=== PATIENT | female | born 1990 | race Caucasian/White ===

== ENCOUNTER 2016-05-14 17:42 | Emergency (ER) | payer BC, OTHER ==
[~2016-05-14] VITALS: Ht 170.2 cm; Wt 117.8 kg
[~2016-05-14 17:42] MED LIST: ALBU1NEB10 INH; AMIT150T PO; CHOL1CAP30 PO; CYAN1SUB12 PO; CYCL10TA6 PO; FLUT1AER5 INH; FRRS300 PO; LORA-741 PO; RIZA10TA18 PO
[2016-05-14 17:48] VITALS: TEMP 36.5; Ht 170.2 cm; Wt 117.8 kg
[2016-05-14] MEDS ORDERED: ALBU1AER9 INH (18:32)
[2016-05-14] MEDS ORDERED: DPPI150 IM (18:32)
[2016-05-14] MEDS ORDERED: OXYCODONE HCL IR 5 MG TAB (IMMEDIATE RELEASE) PO STA (19:10)
[2016-05-14] MEDS ORDERED: CETI10TA84 PO (19:35)
[2016-05-14 20:15] LABS: BASO % 0.5 %; BASO ABS # 0.03 K/uL (0-0.2); COMPLETE YES; EOS % 3.4 %; HEMATOCRIT 37.1 % (37-47); IG% 0.2 %; LYMPH % 35.2 %; LYMPH ABS # 1.97 K/uL (1.2-3.4); MEAN CELL VOLUME 96.9 fL (80-100); MEAN CORPUSCULAR HEMOGLOBIN 33.2 pg (25-34); MEAN CORPUSCULAR HGB CONC 34.2 g/dl (32-36); MEAN PLATELET VOLUME 10.2 fL (7.4-10.4); MONO % 9.3 %; NEUT % 51.4 %; PLATELET COUNT 229 K/uL (130-400); RED BLOOD COUNT 3.83 M/uL (4.2-5.4)
[2016-05-14 20:30] LABS: PARTIAL THROMBOPLASTIN RATIO 1.3; PROTHROMBIN TIME (PATIENT) 10.7 SECONDS (9.0-12.0)
[2016-05-14 20:36] LABS: ALT/SGPT 17 U/L (12-78); BLOOD UREA NITROGEN 7 mg/dl (7-18); BUN/CREATININE RATIO 12.4 (10-20); CALCIUM 8.8 mg/dl (8.5-10.1); CARBON DIOXIDE 17 mmol/L (21-32); CHLORIDE 107 mmol/L (98-107); CREATININE 0.54 mg/dl (0.60-1.20); GLUCOSE 72 mg/dl (70-99); POTASSIUM 3.4 mmol/L (3.5-5.1); SODIUM 140 mmol/L (136-145)
[2016-05-14 20:39] LABS: ALKALINE PHOSPHATASE 111 U/L (45-117); AST/SGOT 13 U/L (15-37)
--- NOTE | 2016-05-14 20:59 | DIAGNOSTIC IMAGING REPORT ---
CHEST 2 VIEWS ROUTINE HISTORY: Short of breath. COMPARISON: Chest 04/15/2015. FINDINGS: There are low lung volumes, unchanged. Prior cholecystectomy. The heart is normal in size. Left jugular Port-A-Cath terminates in the SVC. No focal lung consolidations to suggest pneumonia. No evidence for pulmonary edema. No pleural effusions. No pneumothorax. IMPRESSION: No acute process. Electronically signed by: Yusuf Mejia M.D. 05/14/2016 8:57 PM Dictated Date/Time: 05/14/2016 8:56 PM
--- NOTE | 2016-05-14 21:19 | DIAGNOSTIC IMAGING REPORT ---
LEFT UPPER EXTREMITY VENOUS DOPPLER HISTORY: Left arm pain. COMPARISON STUDY: None. FINDINGS: The left internal jugular vein is patent. There is normal flow within the left subclavian vein. There is normal flow and compressibility within the left basilic, brachial, radial, ulnar, and visualized cephalic veins. Note, the distal subclavian vein, proximal cephalic vein, axillary vein were obscured by the patient's indwelling port. IMPRESSION: No DVT within the visualized left upper extremity. The patient's indwelling port obscured the left axillary vein and distal subclavian vein. Electronically signed by: Yusuf Mejia M.D. 05/14/2016 9:17 PM Dictated Date/Time: 05/14/2016 9:16 PM
--- NOTE | 2016-05-14 21:37 | EMERGENCY ROOM VISIT NOTE ---
History First contact with patient: 18:50 Chief Complaint: ARM PAIN Stated Complaint: PAIN IN ARM, TROUBLE BREATHING, HX OF BLOOD CLOTS History of Present Illness The patient is a 25 year old female, history of MS, who presents to the Emergency Room with her mother with complaints of left upper extremity pain and shortness of breath. The mother reports that the patient has a history of asthma, and does not know if her symptoms are secondary to asthma or possible blood clots in the lung. The patient reports that she has had a prior history of pulmonary emboli and extensive right upper extremity DVT. The patient denies any recent injury to her left upper extremity. She reports that the pain is focused mostly about the elbow. She denies any recent trauma to the left upper extremity. The patient denies any significant wheezing, fevers, chills, cough, sore throat, runny nose or sinus congestion. She rates her discomfort a 7 out of 10. Review of Systems 10 system review was performed and was negative except for pertinent positives and negatives as indicated in history of present illness Past Medical/Surgical History Medical Problems: (1) Asthma (2) Bronchitis (3) gastric bypass (4) Influenza A (5) Multiple sclerosis (6) Pneumonia (7) Ulcer Surgical Problems: (1) S/P cholecystectomy Family History Diabetes mellitus FH: gallbladder disease FH: heart disease Hypertension Kidney disease Kidney stones Social History Smoking Status: Never Smoker Alcohol Use: occasionally Drug Use: none Marital Status: single Housing Status: lives with family Occupation Status: unemployed Current/Historical Medications Scheduled Amitriptyline Hcl (Elavil), 100 MG PO HS Cetirizine (Zyrtec), 10 MG PO DAILY Cholecalciferol (Vitamin D3), 1,000 INTER.UNIT PO DAILY Cholecalciferol (Vitamin D3), 5,000 INTER.UNIT PO DAILY Cranberry (Vaccinium Macrocarp (Cranberry), 500 MG PO DAILY Cyanocobalamin (Cyanocobalamin), 1,000 MCG IM WK Dimethyl Fumarate (Tecfidera), 240 MG PO BID Ferrous Sulfate (Ferrous Sulfate), 325 MG PO BID Medroxyprogesterone Acetate (Medroxyprogesterone Aceta), 150 MG IM Q3 MONTHS Montelukast Sod (Montelukast Sodium), 10 MG PO HS Omeprazole (Prilosec), 40 MG PO BID Topiramate (Topamax), 50 MG PO BID Triamcinolone Acetonide (Nasal (Nasacort Allergy 24Hr), 1 SPRAY CRISTOBAL BID Venlafaxine Hcl (Effexor Xr), 75 MG PO QAM Scheduled PRN Albuterol Sulf (Proventil 0.083% 2.5MG/3ML), 3 ML NEB Q4H PRN for Wheezing Albuterol Sulfate (Proair Hfa), 2 PUFFS INH Q4H PRN for SOB/Wheeze/Prior to Exercise Hydroxyzine HCl (Hydroxyzine HCl), 10 MG PO HS PRN for Sleep Lorazepam (Lorazepam), 0.5 MG PO HS PRN for Anxiety and/or Sedation Rizatriptan Benzoate (Rizatriptan Benzoate), 10 MG PO UD PRN for Migraine Allergies Coded Allergies: Sulfa Antibiotics (Verified Allergy, Severe, HIVES, 12/18/15) Hydrocodone (Verified Allergy, Intermediate, HIVES, 12/18/15) Cephalosporins (Verified Allergy, Mild, 0, 12/18/15) Cephalexin (Verified Allergy, Unknown, ., 12/18/15) Clindamycin (Unverified Adverse Reaction, Unknown, HEARTBURN, 12/18/15) Physical Exam Vital Signs Date Time Temp Pulse Resp B/P Pulse Ox O2 Delivery O2 Flow Rate FiO2 05/14/16 20:02 87 16 136/86 98 Room Air 05/14/16 17:48 36.5 102 17 146/83 97 Room Air Physical Exam CONSTITUTIONAL: Morbidly obese female, alert and oriented X 3 with positive affect. Patient does not appear in any acute distress. HEENT: Normocephalic, atraumatic. Pupils equal, round and reactive. Ears and nares are clear. No rhinorrhea. No conjunctival injection or scleral icterus. OROPHARYNX: No posterior pharyngeal erythema, tonsillar hypertrophy or exudates. NECK: Full active range of motion without discomfort. No nuchal rigidity, JVD or carotid bruits on auscultation. RESPIRATORY: Clear to auscultation bilaterally with no wheezing, crackles, rhonchi or stridor. CARDIOVASCULAR: Regular rate and rhythm with no murmurs, rubs or gallops. GASTROINTESTINAL: Bowel sounds present in all quadrants. Abdomen is soft and nontender to palpation. MUSCULOSKELETAL: Examination shows mild tenderness to palpation about the elbow. No increased warmth to palpation noted. Range of motion of the elbows any worsens her discomfort. She has no tenderness to palpation about the shoulder. Capillary refill of the fingers is less than 2 seconds. INTEGUMENTARY: No rash or other significant dermatologic conditions noted. NEUROLOGIC: Cranial nerves II-XII grossly intact. No focal neurologic deficits noted. Left hand and fingers are sensory intact. Medical Decision & Procedures ER Provider Diagnostic Interpretation: Venous ultrasound of the left upper extremity does not show any evidence for deep vein thrombosis. There are areas that are obscured from the patient's port. Radiologist report is as follows: LEFT UPPER EXTREMITY VENOUS DOPPLER HISTORY: Left arm pain. COMPARISON STUDY: None. FINDINGS: The left internal jugular vein is patent. There is normal flow within the left subclavian vein. There is normal flow and compressibility within the left basilic, brachial, radial, ulnar, and visualized cephalic veins. Note, the distal subclavian vein, proximal cephalic vein, axillary vein were obscured by the patient's indwelling port. IMPRESSION: No DVT within the visualized left upper extremity. The patient's indwelling port obscured the left axillary vein and distal subclavian vein. My interpretation of a two-view chest x-ray does not show any consolidations or pneumothorax. Radiologist report is as follows: CHEST 2 VIEWS ROUTINE HISTORY: Short of breath. COMPARISON: Chest 04/15/2015. FINDINGS: There are low lung volumes, unchanged. Prior cholecystectomy. The heart is normal in size. Left jugular Port-A-Cath terminates in the SVC. No focal lung consolidations to suggest pneumonia. No evidence for pulmonary edema. No pleural effusions. No pneumothorax. IMPRESSION: No acute process. Laboratory Results 05/14/16 20:00 Red Blood Count 3.83, Mean Corpuscular Volume 96.9, Mean Corpuscular Hemoglobin 33.2, Mean Corpuscular Hemoglobin Concent 34.2, Mean Platelet Volume 10.2, Neutrophils (%) (Auto) 51.4, Lymphocytes (%) (Auto) 35.2, Monocytes (%) (Auto) 9.3, Eosinophils (%) (Auto) 3.4, Basophils (%) (Auto) 0.5, Neutrophils # (Auto) 2.88, Lymphocytes # (Auto) 1.97, Monocytes # (Auto) 0.52, Eosinophils # (Auto) 0.19, Basophils # (Auto) 0.03 05/14/16 20:00 Test 05/14/16 20:00 White Blood Count 5.60 K/uL (4.8-10.8) Red Blood Count 3.83 M/uL (4.2-5.4) Hemoglobin 12.7 g/dL (12.0-16.0) Hematocrit 37.1 % (37-47) Mean Corpuscular Volume 96.9 fL (80-100) Mean Corpuscular Hemoglobin 33.2 pg (25-34) Mean Corpuscular Hemoglobin Concent 34.2 g/dl (32-36) Platelet Count 229 K/uL (130-400) Mean Platelet Volume 10.2 fL (7.4-10.4) Neutrophils (%) (Auto) 51.4 % Lymphocytes (%) (Auto) 35.2 % Monocytes (%) (Auto) 9.3 % Eosinophils (%) (Auto) 3.4 % Basophils (%) (Auto) 0.5 % Neutrophils # (Auto) 2.88 K/uL (1.4-6.5) Lymphocytes # (Auto) 1.97 K/uL (1.2-3.4) Monocytes # (Auto) 0.52 K/uL (0.11-0.59) Eosinophils # (Auto) 0.19 K/uL (0-0.5) Basophils # (Auto) 0.03 K/uL (0-0.2) RDW Standard Deviation 49.7 fL (36.4-46.3) RDW Coefficient of Variation 14.0 % (11.5-14.5) Immature Granulocyte % (Auto) 0.2 % Immature Granulocyte # (Auto) 0.01 K/uL (0.00-0.02) Prothrombin Time 10.7 SECONDS (9.0-12.0) Prothromb Time International Ratio 1.0 (0.9-1.1) Activated Partial Thromboplast Time 33.6 SECONDS (21.0-31.0) Partial Thromboplastin Ratio 1.3 D-Dimer < 190 ug/L FEU (0-500) Anion Gap 16.0 mmol/L (3-11) Est Creatinine Clear Calc Drug Dose 209.6 ml/min Estimated GFR () > 150.0 Estimated GFR (Non- 130.2 BUN/Creatinine Ratio 12.4 (10-20) Calcium Level 8.8 mg/dl (8.5-10.1) Total Bilirubin 0.3 mg/dl (0.2-1) Direct Bilirubin 0.2 mg/dl (0-0.2) Aspartate Amino Transf (AST/SGOT) 13 U/L (15-37) Alanine Aminotransferase (ALT/SGPT) 17 U/L (12-78) Alkaline Phosphatase 111 U/L (45-117) Total Protein 6.6 gm/dl (6.4-8.2) Albumin 3.8 gm/dl (3.4-5.0) The above labs were reviewed. Medications Administered Medications (Trade) Dose Ordered Sig/Joie Route Start Time Stop Time Status Last Admin Dose Admin Oxycodone HCl (Roxicodone Immediate Rel Tab) 5 mg NOW STAT PO 05/14/16 19:10 05/14/16 19:13 DC 05/14/16 19:43 5 MG ED Course Patient history and physical exam were performed. Nurse's notes were reviewed. Vital signs were reviewed, showing a blood pressure 146/83. Pulse rate is mildly elevated at 102. O2 saturation 97% on room air. The patient is also afebrile. IV access was established, and labs were drawn. Review of labs shows a normal d-dimer. Remaining labs were also normal. Venous ultrasound of the left upper extremity, along with a two-view chest x-ray were normal. The patient and mother were advised of today's findings. The patient reports that she has an appointment with her PCP on . She was instructed to return to the emergency department for any progressively worsening symptoms. Ibuprofen or Tylenol as needed for pain. The patient and mother were happy with plan of care, and the patient rated her discomfort a 3 out of 10 at the time of discharge. Medical Decision Impression Primary Impression: Pain of left upper extremity Departure Information Referrals Mendoza Daniles M.D. (PCP) Patient Instructions A Signature Page, My [facility]
[2016-05-14 21:44] VITALS: BP 112/78; PULSE 104; O2SAT 98
[2016-09-12] MEDS ORDERED: SNG10 PO (16:53)
[2016-09-12] MEDS ORDERED: TRIA1SPR4 NAE (19:35)
[2016-09-20] MEDS ORDERED: LEVO5TAB7 PO (15:39)
[2016-11-03] MEDS ORDERED: OMEP40CA41 PO (09:52)
[2016-11-03] MEDS ORDERED: DIME1CAP2 PO (16:19)
[2016-11-03] MEDS ORDERED: SNG10 PO (17:41)
[2016-11-03] MEDS ORDERED: VENL75CA PO (18:32)
[2016-11-03] MEDS ORDERED: ATR10 PO (18:32)
[2016-11-03] MEDS ORDERED: TPM/50 PO (18:32)
[2016-11-03] MEDS ORDERED: FERR325T PO (19:23)
[2016-11-03] MEDS ORDERED: AMIT100T2 PO (19:23)
[2016-11-03] MEDS ORDERED: ATV5X PO (19:23)
[2016-11-03] MEDS ORDERED: CYNI1000 IM (19:26)
[2016-11-03] MEDS ORDERED: CHOLCAP5 PO (19:28)
[2016-11-03] MEDS ORDERED: CHOL1CAP57 PO (19:28)
[2016-11-03] MEDS ORDERED: MXL10 PO (19:30)
[2016-11-03] MEDS ORDERED: ALBINS/ NEB (19:33)
[2016-11-03] MEDS ORDERED: CRAN500C2 PO (21:00)
[2016-11-03] MEDS ORDERED: ALBU18002 INH (21:03)
== END 2016-05-14 21:47 | disposition home or self-care (01) ==
LOC: C.EDB 17:44 → C.EDC 21:47
DX: M79.602 Pain in left arm (principal); J45.909 Unspecified asthma, uncomplicated; Z86.711 Personal history of pulmonary embolism; Z86.718 Personal history of other venous thrombosis and embolism; G35 Multiple sclerosis; Z98.84 Bariatric surgery status; Z83.3 Family history of diabetes mellitus; Z82.49 Family history of ischemic heart disease and other diseases of the circulatory system; Z84.1 Family history of disorders of kidney and ureter

== ENCOUNTER 2016-07-09 18:20 | Emergency (ER) | payer BC, OTHER ==
[~2016-07-09] VITALS: Ht 170.2 cm; Wt 115.3 kg
[~2016-07-09 18:20] MED LIST changes: +ALBU1AER9 INH; -ALBU1NEB10 INH; -AMIT150T PO; +CETI10TA84 PO; -CHOL1CAP30 PO; -CYAN1SUB12 PO; -CYCL10TA6 PO; +DPPI150 IM; -FLUT1AER5 INH; -FRRS300 PO; -LORA-741 PO; -RIZA10TA18 PO
[2016-07-09 18:22] VITALS: TEMP 36.8; Ht 170.2 cm; Wt 115.3 kg
[2016-07-09] MEDS ORDERED: ALBUT/IPRATROP 3MG/0.5MG NEB 3 ML VIAL INH STA (18:34)
[2016-07-09] MEDS ORDERED: PRED10TA PO (19:04)
[2016-07-09] MEDS ORDERED: AMT50 PO (19:14)
[2016-07-09] MEDS ORDERED: CHOL20009 PO (19:15)
[2016-07-09 19:19] LABS: BASO % 0.2 %; BASO ABS # 0.02 K/uL (0-0.2); COMPLETE YES; EOS % 0.1 %; HEMATOCRIT 37.8 % (37-47); IG% 0.2 %; LYMPH % 7.3 %; MEAN CELL VOLUME 95.2 fL (80-100); MEAN CORPUSCULAR HEMOGLOBIN 32.7 pg (25-34); MEAN CORPUSCULAR HGB CONC 34.4 g/dl (32-36); MEAN PLATELET VOLUME 9.9 fL (7.4-10.4); MONO % 7.4 %; NEUT % 84.8 %; PLATELET COUNT 259 K/uL (130-400); RED BLOOD COUNT 3.97 M/uL (4.2-5.4); WHITE BLOOD COUNT 8.19 K/uL (4.8-10.8)
[2016-07-09] MEDS ORDERED: HYDROCODONE/HOMATROPINE SYRUP 5MG/1.5MG 5ML UDP PO STA (19:35)
[2016-07-09 19:36] LABS: BUN/CREATININE RATIO 10.7 (10-20); CALCIUM 8.5 mg/dl (8.5-10.1); CREATININE 0.57 mg/dl (0.60-1.20); POTASSIUM 3.3 mmol/L (3.5-5.1)
[2016-07-09] MEDS ORDERED: BENZONATATE 100MG CAP PO ONE (19:45)
--- NOTE | 2016-07-09 19:50 | DIAGNOSTIC IMAGING REPORT ---
TWO VIEW CHEST CLINICAL HISTORY: Cough and fever. FINDINGS: PA and lateral chest radiographs are compared to study dated 05/14/2016 and correlated with chest CT dated 12/18/2015. A left sided central venous infusion port is unchanged in position. The cardiomediastinal silhouette is unremarkable. There is mild chronic elevation of the right hemidiaphragm. The lungs and pleural spaces are clear. There is no pneumothorax. The bony thorax appears intact. Cholecystectomy clips are seen in the right upper quadrant. IMPRESSION: No active disease in the chest. Electronically signed by: Don Laird M.D. 07/09/2016 7:49 PM Dictated Date/Time: 07/09/2016 7:47 PM
--- NOTE | 2016-07-09 19:56 | DIAGNOSTIC IMAGING REPORT ---
THORACIC SPINE 3 VIEWS CLINICAL HISTORY: Thoracic back pain. Fall several days previously. FINDINGS: AP, lateral, and swimmer's views of the thoracic spine are correlated with chest CT dated 12/18/2015. The skeletal structures are well mineralized. There is no radiographic evidence of fracture or malalignment. Vertebral body height and alignment are preserved throughout the thoracic spine. The transverse processes and pedicles appear intact on the frontal view. Small anterior osteophytes are noted in the lower thoracic region. The lung parenchyma is clear as visualized. A left internal jugular central venous infusion port is in place. Cholecystectomy clips are noted and suture material projects over the esophageal hiatus. IMPRESSION: No acute bony abnormality is seen involving the thoracic spine. Electronically signed by: Don Laird M.D. 07/09/2016 7:54 PM Dictated Date/Time: 07/09/2016 7:53 PM
[2016-07-09] MEDS ORDERED: BENZ100C18 PO (20:14)
[2016-07-09 20:23] VITALS: BP 150/93; PULSE 111; O2SAT 98
--- NOTE | 2016-07-09 20:37 | EMERGENCY ROOM VISIT NOTE ---
History Report prepared by Vic: Marcelle Ni Under the Supervision of: Devin SantoyoO. First contact with patient: 18:25 Chief Complaint: RESPIRATORY PROBLEMS Stated Complaint: TROUBLE BREATHING History of Present Illness The patient is a 26 year old female who presents to the Emergency Room with complaints of persistent breathing difficulties that worsened today. She currently rates her discomfort as a 7/10 in severity secondary to the coughing. The patient states that July 05 she was started on Azithromycin and Prednisone for a sinus infection. She states that she has a history of MS and asthma. The patient states that her symptoms have been worsening and additionally notes a non productive cough. She states that she has been wheezing and additionally notes rib pain following coughing. The patient states that she tried to get in to her PCP's office tonight, but states that nothing is available until tomorrow. The patient states that she had a fall on Saturday, noting increased back pain that started after the violent fall that is different than her typical MS. She notes a history of two previous blood clots , but denies being on and blood thinners. Pt denies headache, change in vision , fevers, chest pain, nausea, vomiting, diarrhea, pain with urination, and melena. Source of History: patient Onset: today Position: other (global) Symptom Intensity: 7/10 Quality: other (breathing difficulties) Timing: worsening, other (persistent) Associated Symptoms: + cough Note: Associated Symptoms: rib pain Review of Systems See HPI for pertinent positives & negatives. A total of 10 systems reviewed and were otherwise negative. Past Medical & Surgical Medical Problems: (1) Asthma (2) Bronchitis (3) gastric bypass (4) Influenza A (5) Multiple sclerosis (6) Pneumonia (7) Ulcer Surgical Problems: (1) S/P cholecystectomy Family History Diabetes mellitus FH: gallbladder disease FH: heart disease Hypertension Kidney disease Kidney stones Social History Smoking Status: Never Smoker Alcohol Use: occasionally Drug Use: none Marital Status: single Housing Status: lives with family Occupation Status: unemployed Current/Historical Medications Scheduled Amitriptyline Hcl (Elavil), 100 MG PO HS Amitriptyline Hcl (Elavil), 50 MG PO HS Benzonatate (Tessalon Perles), 100 MG PO TID Cholecalciferol (Vitamin D3), 1,000 INTER.UNIT PO DAILY Cholecalciferol (Vitamin D3), 5,000 INTER.UNIT PO DAILY Cholecalciferol (Vitamin D), 6,000 UNITS PO DAILY Cranberry (Vaccinium Macrocarp (Cranberry), 500 MG PO DAILY Cyanocobalamin (Cyanocobalamin), 1,000 MCG IM WK Dimethyl Fumarate (Tecfidera), 240 MG PO BID Ferrous Sulfate (Ferrous Sulfate), 325 MG PO BID Medroxyprogesterone Acetate (Medroxyprogesterone Aceta), 150 MG IM Q3 MONTHS Montelukast Sod (Montelukast Sodium), 10 MG PO HS Omeprazole (Prilosec), 40 MG PO BID Prednisone Tab (Prednisone), 10 MG PO DAILY/UD Topiramate (Topamax), 50 MG PO BID Triamcinolone Acetonide (Nasal (Nasacort Allergy 24Hr), 1 SPRAY CRISTOBAL BID Venlafaxine Hcl (Effexor Xr), 75 MG PO QAM Scheduled PRN Albuterol Sulf (Proventil 0.083% 2.5MG/3ML), 3 ML NEB Q4H PRN for Wheezing Albuterol Sulfate (Proair Hfa), 2 PUFFS INH Q4H PRN for SOB/Wheeze/Prior to Exercise Hydroxyzine HCl (Hydroxyzine HCl), 10 MG PO HS PRN for Sleep Lorazepam (Lorazepam), 0.5 MG PO HS PRN for Anxiety and/or Sedation Rizatriptan Benzoate (Rizatriptan Benzoate), 10 MG PO UD PRN for Migraine Allergies Coded Allergies: Sulfa Antibiotics (Verified Allergy, Severe, HIVES, 07/09/16) Hydrocodone (Verified Allergy, Intermediate, HIVES, 07/09/16) Cephalosporins (Verified Allergy, Mild, 0, 07/09/16) Cephalexin (Verified Allergy, Unknown, ., 07/09/16) Methocarbamol (Verified Allergy, Unknown, UNKNOWN, 07/09/16) Clindamycin (Unverified Adverse Reaction, Unknown, HEARTBURN, 07/09/16) Physical Exam Vital Signs Date Time Temp Pulse Resp B/P Pulse Ox O2 Delivery O2 Flow Rate FiO2 07/09/16 20:23 111 20 150/93 98 Room Air 07/09/16 19:45 115 20 133/82 94 Room Air 07/09/16 19:18 Room Air 07/09/16 18:22 36.8 116 18 139/80 95 Room Air Physical Exam GENERAL: Ambulates through hallway without difficulty, alert, well appearing, well nourished, no distress, non-toxic, talking in full sentences EYE EXAM: normal conjunctiva. OROPHARYNX: no exudate, no erythema, lips, buccal mucosa, and tongue normal and mucous membranes are moist NECK: supple, no nuchal rigidity, no adenopathy, non-tender CHEST: port accessed on the right LUNGS: Mild diffuse wheezing bilaterally. Normal chest wall mechanics HEART: Tachycardic rate, no murmurs, S1 normal and S2 normal ABDOMEN: abdomen soft, non-tender, normo-active bowel sounds, no masses, no rebound or guarding. BACK: Back is symmetrical on inspection and there is no deformity, no midline tenderness, no CVA tenderness. Tender to palpitation in the upper thoracic paraspinal region SKIN: no rashes and no bruising UPPER EXTREMITIES: upper extremities are grossly normal. LOWER EXTREMITIES: No pitting edema. Calves are equal bilaterally NEURO EXAM: Normal sensorium, cranial nerves II-XII grossly intact, normal speech, no gross weakness of arms, no gross weakness of legs. Medical Decision & Procedures ER Provider Diagnostic Interpretation: Xray results per the radiologist and my interpretation. Other results have been interpreted by the radiologist and reviewed by me. THORACIC SPINE 3 VIEWS CLINICAL HISTORY: Thoracic back pain. Fall several days previously. FINDINGS: AP, lateral, and swimmer's views of the thoracic spine are correlated with chest CT dated 12/18/2015. The skeletal structures are well mineralized. There is no radiographic evidence of fracture or malalignment. Vertebral body height and alignment are preserved throughout the thoracic spine. The transverse processes and pedicles appear intact on the frontal view. Small anterior osteophytes are noted in the lower thoracic region. The lung parenchyma is clear as visualized. A left internal jugular central venous infusion port is in place. Cholecystectomy clips are noted and suture material projects over the esophageal hiatus. IMPRESSION: No acute bony abnormality is seen involving the thoracic spine. Electronically signed by: Don Laird M.D. 07/09/2016 7:54 PM Dictated Date/Time: 07/09/2016 7:53 PM TWO VIEW CHEST CLINICAL HISTORY: Cough and fever. FINDINGS: PA and lateral chest radiographs are compared to study dated 05/14/2016 and correlated with chest CT dated 12/18/2015. A left sided central venous infusion port is unchanged in position. The cardiomediastinal silhouette is unremarkable. There is mild chronic elevation of the right hemidiaphragm. The lungs and pleural spaces are clear. There is no pneumothorax. The bony thorax appears intact. Cholecystectomy clips are seen in the right upper quadrant. IMPRESSION: No active disease in the chest. Electronically signed by: Don Laird M.D. 07/09/2016 7:49 PM Dictated Date/Time: 07/09/2016 7:47 PM Laboratory Results 07/09/16 19:05 Red Blood Count 3.97, Mean Corpuscular Volume 95.2, Mean Corpuscular Hemoglobin 32.7, Mean Corpuscular Hemoglobin Concent 34.4, Mean Platelet Volume 9.9, Neutrophils (%) (Auto) 84.8, Lymphocytes (%) (Auto) 7.3, Monocytes (%) (Auto) 7.4, Eosinophils (%) (Auto) 0.1, Basophils (%) (Auto) 0.2, Neutrophils # (Auto) 6.93, Lymphocytes # (Auto) 0.60, Monocytes # (Auto) 0.61, Eosinophils # (Auto) 0.01, Basophils # (Auto) 0.02 07/09/16 19:05 Test 07/09/16 19:05 White Blood Count 8.19 K/uL (4.8-10.8) Red Blood Count 3.97 M/uL (4.2-5.4) Hemoglobin 13.0 g/dL (12.0-16.0) Hematocrit 37.8 % (37-47) Mean Corpuscular Volume 95.2 fL (80-100) Mean Corpuscular Hemoglobin 32.7 pg (25-34) Mean Corpuscular Hemoglobin Concent 34.4 g/dl (32-36) Platelet Count 259 K/uL (130-400) Mean Platelet Volume 9.9 fL (7.4-10.4) Neutrophils (%) (Auto) 84.8 % Lymphocytes (%) (Auto) 7.3 % Monocytes (%) (Auto) 7.4 % Eosinophils (%) (Auto) 0.1 % Basophils (%) (Auto) 0.2 % Neutrophils # (Auto) 6.93 K/uL (1.4-6.5) Lymphocytes # (Auto) 0.60 K/uL (1.2-3.4) Monocytes # (Auto) 0.61 K/uL (0.11-0.59) Eosinophils # (Auto) 0.01 K/uL (0-0.5) Basophils # (Auto) 0.02 K/uL (0-0.2) RDW Standard Deviation 47.9 fL (36.4-46.3) RDW Coefficient of Variation 13.9 % (11.5-14.5) Immature Granulocyte % (Auto) 0.2 % Immature Granulocyte # (Auto) 0.02 K/uL (0.00-0.02) Anion Gap 13.0 mmol/L (3-11) Est Creatinine Clear Calc Drug Dose 194.5 ml/min Estimated GFR () 147.2 Estimated GFR (Non- 127.0 BUN/Creatinine Ratio 10.7 (10-20) Calcium Level 8.5 mg/dl (8.5-10.1) Influenza Type A Antigen Neg for Influ A (NEG) Influenza Type B Antigen Neg for Influ B (NEG) Laboratory results per my review. Medications Administered Medications (Trade) Dose Ordered Sig/Joie Route Start Time Stop Time Status Last Admin Dose Admin Albuterol/ Ipratropium (Duoneb) 3 ml NOW STAT INH 07/09/16 18:34 07/09/16 18:37 DC 07/09/16 19:09 3 ML Prednisone (PredniSONE TAB) 60 mg NOW STAT PO 07/09/16 18:37 07/09/16 18:38 DC 07/09/16 19:10 30 MG Benzonatate (Tessalon Perles Cap) 100 mg NOW ONCE PO 07/09/16 19:45 07/09/16 19:46 DC 07/09/16 19:44 100 MG Heparin Sodium (Porcine) (Heparin 100 Unit/ml 5ml Flush) 5 ml STK-MED ONCE .ROUTE 07/09/16 20:18 07/09/16 20:21 DC 07/09/16 20:22 5 ML ECG Indication: SOB/dyspnea Rate (beats per minute): 98 Rhythm: sinus rhythm Findings: no ectopy, other (normal axis, flipped T wave in lead 3) ED Course ED COURSE: Vital signs were reviewed and showed tachycardic. The patients medical record was reviewed The above diagnostic studies were performed and reviewed. ED treatments and interventions as stated above. 1826: The patient was evaluated in room B2. A complete history and physical examination was performed. 1833: Ordered DuoNeb 3 ml INH. 1836: Ordered Prednisone 60 mg PO. 1934: I reevaluated the patient and she is still coughing. 1944: Ordered Benzonatate 100 mg PO. 2001: Upon reevaluation, the patient is resting comfortably and feeling better.I discussed my findings with the patient and she understands and agrees with the treatment plan. Based on the patients age, coexisting illnesses, exam and lab findings the decision to treat as an outpatient was made. The patient remained stable while under my care. The patient appeared well at the time of discharge. Medical Decision Differential diagnoses includes but is not limited to pneumonia, bronchitis, COPD/Asthma exacerbation, pneumothorax, pulmonary embolism, congestive heart failure, acute coronary syndrome Patient is a 26-year-old female who presents the ER for cough has been worsening since this past Saturday associated with some shortness of breath and sinus congestion. Vitals were remarkable for a tachycardia. She was recently treated with azithromycin and steroids for sinusitis. She is still talking steroids 30mg at this time. She notes that she was improving until the cough started. She notes that she has been coughing and gets short of breath throughout the coughing. Cough is dry but she feels it come up into her throat when coughing. On exam she does have mild wheezing bilaterally which improved/ resolved with a DuoNeb. She agrees that this did improve her symptoms with the exception of the coughing. She was given Tessalon Perles slight improvement of her coughing. Her only chest pain is present with coughing. EKG was unremarkable/unchanged from her previous. She does have a history of previous blood clots but her symptoms appear to be purely viral and asthma related with the URI symptoms, cough and b/l wheezing improving with duoneb. Calves were equal bilateral. With her wheezing bilaterally improvement with the neb, negative chest x-ray, I felt it was reasonable to discharge her and have her follow-up with her primary care doctor as an outpatient as she was feeling significantly better. I do feel the tachycardia is related to the neb treatments she was perfroming at home and had in the ER along with the persistent coughing. X-rays of the thoracic spine were performed as well since she fell several days ago and show no acute fracture. She has an appointment tomorrow with her PCP which I encouraged her to keep and follow up with. Encouraged her to continue her steroids, nebs and inhaler. Discussed with Pt concerning signs and symptoms to watch out for. Pt was instructed to follow up with their PCP and discussed with the patient their option to return to the ED at anytime for persistent or worsening symptoms. The appropriate anticipatory guidance and out-patient management, including indications for return to the emergency department, were explained at length to the patient and understood. Impression Primary Impression: Asthma exacerbation Additional Impressions: Bronchitis Hypokalemia Scribe Attestation The scribe's documentation has been prepared under my direction and personally reviewed by me in its entirety. I confirm that the note above accurately reflects all work, treatment, procedures, and medical decision making performed by me. Departure Information Dispostion Home / Self-Care Prescriptions Benzonatate (TESSALON PERLES) 100 Mg Cap 100 MG PO TID, #30 CAP Prov: Tate Trevino, DO 07/09/16 Referrals Mendoza Daniels M.D. (PCP) Forms HOME CARE DOCUMENTATION FORM, IMPORTANT VISIT INFORMATION, WORK / SCHOOL INSTRUCTIONS Patient Instructions Asthma - [facility], ED Bronchitis Viral, My [facility] Additional Instructions Please follow up with your primary care doctor with in the next 24 hours. Any worsening of your symptoms, please return to the ED immediately. This includes worsening cough, passing out, worsening shortness of breath, fevers persistently greater than 100.4, or any other concerning signs or symptoms from your standpoint. Please continue steroids as previously prescribed. Please use your inhaler and nebulizer as needed. Problem Qualifiers
[2016-09-12] MEDS ORDERED: SNG10 PO (16:53)
[2016-09-12] MEDS ORDERED: TRIA1SPR4 NAE (19:35)
[2016-09-20] MEDS ORDERED: LEVO5TAB7 PO (15:39)
[2016-11-03] MEDS ORDERED: OMEP40CA41 PO (09:52)
[2016-11-03] MEDS ORDERED: DIME1CAP2 PO (16:19)
[2016-11-03] MEDS ORDERED: SNG10 PO (17:41)
[2016-11-03] MEDS ORDERED: VENL75CA PO (18:32)
[2016-11-03] MEDS ORDERED: TPM/50 PO (18:32)
[2016-11-03] MEDS ORDERED: ATR10 PO (18:32)
[2016-11-03] MEDS ORDERED: ATV5X PO (19:23)
[2016-11-03] MEDS ORDERED: FERR325T PO (19:23)
[2016-11-03] MEDS ORDERED: AMIT100T2 PO (19:23)
[2016-11-03] MEDS ORDERED: CYNI1000 IM (19:26)
[2016-11-03] MEDS ORDERED: CHOLCAP5 PO (19:28)
[2016-11-03] MEDS ORDERED: CHOL1CAP57 PO (19:28)
[2016-11-03] MEDS ORDERED: MXL10 PO (19:30)
[2016-11-03] MEDS ORDERED: ALBINS/ NEB (19:33)
[2016-11-03] MEDS ORDERED: CRAN500C2 PO (21:00)
[2016-11-03] MEDS ORDERED: ALBU18002 INH (21:03)
== END 2016-07-09 20:31 | disposition home or self-care (01) ==
LOC: C.EDB 18:21
DX: J45.901 Unspecified asthma with (acute) exacerbation (principal); E87.6 Hypokalemia; G35 Multiple sclerosis; Z98.84 Bariatric surgery status; Z83.3 Family history of diabetes mellitus; Z83.79 Family history of other diseases of the digestive system; Z82.49 Family history of ischemic heart disease and other diseases of the circulatory system; Z84.1 Family history of disorders of kidney and ureter; Z79.52 Long term (current) use of systemic steroids; Z79.899 Other long term (current) drug therapy

== ENCOUNTER 2016-08-24 18:35 | Emergency (ER) | payer BC, OTHER ==
[~2016-08-24] VITALS: Ht 170.2 cm; Wt 110.0 kg
[~2016-08-24 18:35] MED LIST changes: +AMT50 PO; -CETI10TA84 PO; +CHOL20009 PO; +PRED10TA PO
[2016-08-24 18:41] VITALS: TEMP 36.6; Ht 170.2 cm; Wt 110.0 kg
[2016-08-24] MEDS ORDERED: LIDOCAINE/EPINEPH/TETRACAINE 1 EA SYR EXT STA (19:42)
--- NOTE | 2016-08-24 19:46 | EMERGENCY ROOM VISIT NOTE ---
History Report prepared by Vic: Clyde Baptiste Under the Supervision of: Dr. Karlos Winn D.O. First contact with patient: 19:37 Chief Complaint: LACERATION/CUT (SUT/DERMABOND) Stated Complaint: CUT R LEG Nursing Triage Summary: laceration to right [place] History of Present Illness The patient is a 26 year old female who presents to the Emergency Room with complaints of an acute laceration that occurred just prior to arrival. The patient's dog jumped up on her chair, which caused her scissors to drop and slice her right [place] area. The patient states that there was a lot of bleeding. She notes a burning pain over the lacerated area. She notes that she passed out 3 times en route to the ED. The patient believes that her tetanus is up to date. She has a history of blood clots but is not on blood thinners. She also has a history of MS and iron-deficiency anemia. Source of History: patient Onset: just NECK FITTER Position: leg (right) Quality: other (laceration) Timing: other (acute) Associated Symptoms: + LOC Review of Systems See HPI for pertinent positives & negatives. A total of 6 systems reviewed and were otherwise negative. Past Medical & Surgical Medical Problems: (1) Asthma (2) Bronchitis (3) gastric bypass (4) Influenza A (5) Multiple sclerosis (6) Pneumonia (7) Ulcer Surgical Problems: (1) S/P cholecystectomy Family History Diabetes mellitus FH: gallbladder disease FH: heart disease Hypertension Kidney disease Kidney stones Social History Smoking Status: Never Smoker Alcohol Use: occasionally Drug Use: none Marital Status: single Housing Status: lives with family Occupation Status: unemployed Current/Historical Medications Scheduled Amitriptyline Hcl (Elavil), 100 MG PO HS Amitriptyline Hcl (Elavil), 50 MG PO HS Cholecalciferol (Vitamin D3), 1,000 INTER.UNIT PO DAILY Cholecalciferol (Vitamin D3), 5,000 INTER.UNIT PO DAILY Cholecalciferol (Vitamin D), 6,000 UNITS PO DAILY Cranberry (Vaccinium Macrocarp (Cranberry), 500 MG PO DAILY Cyanocobalamin (Cyanocobalamin), 1,000 MCG IM WK Dimethyl Fumarate (Tecfidera), 240 MG PO BID Ferrous Sulfate (Ferrous Sulfate), 325 MG PO BID Medroxyprogesterone Acetate (Medroxyprogesterone Aceta), 150 MG IM Q3 MONTHS Montelukast Sod (Montelukast Sodium), 10 MG PO HS Omeprazole (Prilosec), 40 MG PO BID Prednisone Tab (Prednisone), 10 MG PO DAILY/UD Topiramate (Topamax), 50 MG PO BID Triamcinolone Acetonide (Nasal (Nasacort Allergy 24Hr), 1 SPRAY CRISTOBAL BID Venlafaxine Hcl (Effexor Xr), 75 MG PO QAM Scheduled PRN Albuterol Sulf (Proventil 0.083% 2.5MG/3ML), 3 ML NEB Q4H PRN for Wheezing Albuterol Sulfate (Proair Hfa), 2 PUFFS INH Q4H PRN for SOB/Wheeze/Prior to Exercise Hydroxyzine HCl (Hydroxyzine HCl), 10 MG PO HS PRN for Sleep Lorazepam (Lorazepam), 0.5 MG PO HS PRN for Anxiety and/or Sedation Rizatriptan Benzoate (Rizatriptan Benzoate), 10 MG PO UD PRN for Migraine Allergies Coded Allergies: Sulfa Antibiotics (Verified Allergy, Severe, HIVES, 07/09/16) Hydrocodone (Verified Allergy, Intermediate, HIVES, 07/09/16) Cephalosporins (Verified Allergy, Mild, 0, 07/09/16) Cephalexin (Verified Allergy, Unknown, ., 07/09/16) Methocarbamol (Verified Allergy, Unknown, UNKNOWN, 07/09/16) Clindamycin (Unverified Adverse Reaction, Unknown, HEARTBURN, 07/09/16) Physical Exam Vital Signs Date Time Temp Pulse Resp B/P Pulse Ox O2 Delivery O2 Flow Rate FiO2 08/24/16 21:06 94 18 124/71 98 08/24/16 18:41 36.6 109 16 131/74 97 Room Air Physical Exam GENERAL: Patient is awake, alert, and in no acute distress. Patient is resting comfortably and showing no signs of anxiety EYES: The conjunctivae are clear. The pupils are round and reactive. EARS, NOSE, MOUTH AND THROAT: The nose is without any evidence of any deformity. Mucous membranes are moist tongue is midline NECK: The neck is nontender and supple. RESPIRATORY: Normal respiratory effort is noted there is no evidence of wheezing rhonchi or rales CARDIOVASCULAR: Regular rate and rhythm noted there no murmurs rubs or gallops normal S1 normal S2 GASTROINTESTINAL: The abdomen is soft. Bowel sounds are present in all quadrants. Abdomen is nontender MUSCULOSKELETAL/EXTREMITIES: There is no evidence of gross deformity full range of motion is noted in the hips and shoulders SKIN: There was a superficial laceration to the anterior left leg, minimal bleeding was noted. NEUROLOGIC: Patient is awake alert and oriented x3. Medical Decision & Procedures Medications Administered Medications (Trade) Dose Ordered Sig/Joie Route Start Time Stop Time Status Last Admin Dose Admin Tetracaine/ Epinephrine/ Lidocaine (L.e.t. Gel 4%/ 1:100/0.5%) 1 ea UD STAT EXT 08/24/16 19:42 08/24/16 19:43 DC 08/24/16 19:42 1 EA Procedure Right lower leg laceration was repaired with Dermabond. ED Course 1938: The patient was evaluated in room B7. A complete history and physical examination were performed. 1941: L. e. t. Gel 4% / 1:100/0.5% EXT. 2039: The patient's laceration was repaired with Dermabond. Discussed the discharge instructions with her. She verbalized understanding. The patient is ready for discharge. Medical Decision The patient is a 26-year-old female who presented to the emergency department for an evaluation of a right leg laceration. The laceration was well controlled and did not have active bleeding however the patient had vasovagal syncope prior to arrival. Lead gel was placed to the area. Good hemostasis was noted. The area was treated with skin glue. The patient was encouraged to follow-up with her primary care physician for further evaluation and return to the emergency department immediately for signs of infection or if any other worrisome symptoms develop. Nursing notes reviewed. Impression Primary Impression: Laceration of lower extremity Scribe Attestation The scribe's documentation has been prepared under my direction and personally reviewed by me in its entirety. I confirm that the note above accurately reflects all work, treatment, procedures, and medical decision making performed by me. Departure Information Dispostion Home / Self-Care Referrals Mendoza Daniels M.D. (PCP) Forms HOME CARE DOCUMENTATION FORM, IMPORTANT VISIT INFORMATION Patient Instructions ED Laceration Ext Skin Glue, My [facility] Additional Instructions Follow-up with your family for reevaluation. Continue using Motrin and Tylenol as directed for pain. Problem Qualifiers Primary Impression: Laceration of lower extremity Encounter type: initial encounter Laterality: right Qualified Codes: S81.811A - Laceration without foreign body, right lower leg, initial encounter
[2016-08-24 21:06] VITALS: BP 124/71; PULSE 94; O2SAT 98
--- NOTE | 2016-09-10 06:14 | EDITING REQUIRED CODING QUERY ---
LENGTH OF LACERATION To promote full compliance with coding requirements relating to patient care, physician participation is requested in all cases of manufacturer's service representative uncertainty. Please assist us with the question(s) below: Please document the length of the (LEFT LEG) laceration. Please type the length in cm within the parenthesis (0.5) below. (LEFT LEG) laceration is (0.5 ) cm. Thank you Cecy Lawrence
[2016-09-12] MEDS ORDERED: SNG10 PO (16:53)
[2016-09-12] MEDS ORDERED: TRIA1SPR4 NAE (19:35)
[2016-09-20] MEDS ORDERED: LEVO5TAB7 PO (15:39)
[2016-11-03] MEDS ORDERED: OMEP40CA41 PO (09:52)
[2016-11-03] MEDS ORDERED: DIME1CAP2 PO (16:19)
[2016-11-03] MEDS ORDERED: SNG10 PO (17:41)
[2016-11-03] MEDS ORDERED: VENL75CA PO (18:32)
[2016-11-03] MEDS ORDERED: ATR10 PO (18:32)
[2016-11-03] MEDS ORDERED: TPM/50 PO (18:32)
[2016-11-03] MEDS ORDERED: FERR1TAB62 PO (19:23)
[2016-11-03] MEDS ORDERED: ATV5X PO (19:23)
[2016-11-03] MEDS ORDERED: AMIT100T2 PO (19:23)
[2016-11-03] MEDS ORDERED: CYNI1000 IM (19:26)
[2016-11-03] MEDS ORDERED: CHOLCAP5 PO (19:28)
[2016-11-03] MEDS ORDERED: CHOL1CAP57 PO (19:28)
[2016-11-03] MEDS ORDERED: RIZA10TA21 PO (19:30)
[2016-11-03] MEDS ORDERED: ALBINS/ NEB (19:33)
[2016-11-03] MEDS ORDERED: CRAN500C2 PO (21:00)
[2016-11-03] MEDS ORDERED: ALBU18002 INH (21:03)
== END 2016-08-24 21:07 | disposition home or self-care (01) ==
LOC: C.EDB 18:37
DX: S81.811A Laceration without foreign body, right lower leg, initial encounter (principal); R55 Syncope and collapse; G35 Multiple sclerosis; J45.909 Unspecified asthma, uncomplicated; Z79.899 Other long term (current) drug therapy; Z87.01 Personal history of pneumonia (recurrent); Z87.09 Personal history of other diseases of the respiratory system; Z87.19 Personal history of other diseases of the digestive system; Z98.84 Bariatric surgery status; W27.2XXA Contact with scissors, initial encounter; Z82.49 Family history of ischemic heart disease and other diseases of the circulatory system; Z83.3 Family history of diabetes mellitus; Z83.79 Family history of other diseases of the digestive system; Z84.1 Family history of disorders of kidney and ureter

== ENCOUNTER 2016-09-12 20:19 | Emergency (ER) | payer BC, OTHER ==
[~2016-09-12] VITALS: Ht 170.2 cm; Wt 115.5 kg
[~2016-09-12 20:19] MED LIST changes: +SNG10 PO; +TRIA1SPR4 NAE
[2016-09-12 20:29] VITALS: TEMP 36.5; Ht 170.2 cm; Wt 115.5 kg
--- NOTE | 2016-09-12 21:25 | DIAGNOSTIC IMAGING REPORT ---
RIGHT ANKLE MIN 3 VIEWS ROUTINE CLINICAL HISTORY: INJURY Right trauma. Pain. COMPARISON: None. DISCUSSION: The bones and joint spaces appear intact. There is no evidence of fracture, dislocation or bony disease. There is no evidence for soft tissue swelling. IMPRESSION: Negative study. Electronically signed by: Fabio Couch M.D. 09/12/2016 9:24 PM Dictated Date/Time: 09/12/2016 9:24 PM
[2016-09-12 21:46] VITALS: BP 121/77; PULSE 105; O2SAT 97
--- NOTE | 2016-09-13 18:46 | EMERGENCY ROOM VISIT NOTE ---
ED Visit Note First contact with patient: 21:04 Chief Complaint: I have a bruise on my right leg and a cut on my right ankle. History of Present Illness: Ms. Jerome is a 26-year-old white female who ambulates into the ED accompanied by her mother complaining of a contusion on her right lower leg and a laceration on the right ankle. Patient reports approximately 3.5 hours ago she was in her father's work shop he stood up from the chair he was sitting in and the chair stuck a countertop and the countertop fell over striking her leg causing her injuries. Patient reports over the last 3.5 hours she has noted the development of a contusion over the lateral aspect of the right lower leg and she has noted a small superficial laceration over the inferior aspect of the Achilles tendon. Associated with these injuries she reports she is having a discomfort she cannot describe. She rates this discomfort 4/10. The pain is nonradiating. Her pain worsens with palpation of both these areas. She has not identified any alleviating factors related to the pain. She has not taken any medications for this discomfort prior to arrival at the hospital. Associated with her pain she reports she is also having pain over the medial aspect of the right ankle. She denies hip pain, knee pain, leg weakness/numbness/tingling. She denies any previous significant injuries or surgeries to this area. Review of Systems: As noted above in history of present illness. Past Medical History: (1) Asthma (2) Bronchitis (3) gastric bypass (4) Influenza A (5) Multiple sclerosis (6) Pneumonia (7) Ulcer Surgical Problems: (1) S/P cholecystectomy Current Medications: Medications Dose Route/Sig Max Daily Dose Days Date Category Dose Instructions Medroxyprogesterone Aceta (Medroxyprogesterone Acetate (C) 150 Mg/Ml Inj 150 Mg IM 09/12/16 Reported Proair Respiclick (Albuterol Sulfate) 108 Mcg/Act Aer 2 Puffs INH Q4H PRN 09/12/16 Reported Nasacort Allergy 24Hr (Triamcinolone Acetonide (Nasal) 55 Mcg/Act Spr 1 [place] CRISTOBAL BID 05/14/16 Reported Proventil 0.083% 2.5MG/3ML (Albuterol Sulf) 2.5 Mg/3 Ml Nebu 3 Ml NEB Q4H PRN 05/14/16 Reported Rizatriptan Benzoate 10 Mg Tab 10 Mg PO UD PRN 05/14/16 Reported TAKE ONE TABLET AT ONSET OF MIGRAINE, MAY REPEAT IN 2 HOURS IF NEEDED. Vitamin D3 (Cholecalciferol) 1,000 Unit Cap 1,000 Inter.unit PO DAILY 05/14/16 Reported Cyanocobalamin 1,000 Mcg/Ml Inj 1,000 Mcg IM WK 05/14/16 Reported Ferrous Sulfate 325 Mg Tab 325 Mg PO BID 05/14/16 Reported Lorazepam 0.5 Mg Tab 0.5 Mg PO HS PRN 05/14/16 Reported Elavil (Amitriptyline Hcl) 100 Mg Tab 100 Mg PO HS 05/14/16 Reported Cranberry (Cranberry (Vaccinium Macrocarp) 500 Mg Cap 500 Mg PO DAILY 04/15/15 Reported Tecfidera (Dimethyl Fumarate) 240 Mg Cap 240 Mg PO BID 11/12/14 Reported Montelukast Sodium (Montelukast Sod) 10 Mg Tab 10 Mg PO HS 07/01/14 Reported Effexor Xr (Venlafaxine Hcl) 75 Mg Cap 75 Mg PO QAM 04/23/14 Reported Topamax (Topiramate) 50 Mg Tab 50 Mg PO BID 04/23/14 Reported Hydroxyzine HCl 10 Mg Tab 10 Mg PO HS PRN 04/23/14 Reported Prilosec (Omeprazole) 40 Mg Cap 40 Mg PO BID 01/19/14 Reported Allergies to Medications: Cephalosporins, clindamycin, hydrocodone, sulfa, methocarbamol. Social History: Patient is not employed; she lives with her parents and feels safe in her home environment; she denies tobacco and alcohol use. Tetanus Immunization Status: Mother reports up to date. Physical Examination: Vital Signs: Date Time Temp Pulse Resp B/P Pulse Ox O2 Delivery O2 Flow Rate FiO2 09/12/16 21:46 105 18 121/77 97 09/12/16 20:29 36.5 95 18 123/79 99 Room Air GENERAL: 26-year-old female in mild distress due to pain, nontoxic-appearing, afebrile and hemodynamically stable. NEUROLOGICAL: Awake, alert and oriented to person, place and time. Answering questions appropriately and following commands. Normal gait. Good hand eye coordination. No focal motor or sensory deficits. SKIN: Warm, dry and pink. Right Ankle: Over the inferior aspect of the Achilles tendon there is a superficial laceration measuring approximately 1.2 cm. No active bleeding. RIGHT LOWER EXTREMITY: No gross bony deformity. No shortening or malrotation. No tenderness in the hip, fire knee. Just inferior to the lateral aspect of the knee patient has a 5-6 cm round contusion. This area is mildly tender. I do not appreciate any bony deformity or crepitus. No tenderness over the tibia. Over the medial border of the ankle just inferior and posterior to the malleolus patient has a mild tenderness without bony deformity, bony crepitus, skin eruptions. Full range of motion in flexion and extension of the knee and pronation, supination, inversion and eversion of the ankle. At the ankle no ligamentous laxity was noted on exam. Throughout the foot the skin was warm and pink and capillary refill is brisk. She was able to distinguish light sensations through all dermatomes. ED Course: Patient is assessed as noted above. Patient is given ice for pain and comfort; she was offered pain medication and refused. Right Ankle X-Ray: Was read by myself and the radiologist showing no acute fracture dislocation. Patient's superficial laceration was cleansed with antibacterial soap and water and covered with a bacitracin dressing. Patient mother were educated about today's findings and instructed on her treatment plan; they verbalizes understanding and agreement with this plan. Clinical Impression: Right calf contusion. Superficial laceration of the right ankle. Disposition: Patient was discharged home in stable condition accompanied by her mother; prior to departure she was reassessed and subjectively reported she was feeling the same. Plan: Comfort measures, wound care, signs of infection were discussed with the patient and mother. Patient and mother were encouraged to have her daughter follow-up with her family physician for worsening/uncontrolled pain, signs of infection or any new/ concerning symptoms.
[2016-09-20] MEDS ORDERED: LEVO5TAB7 PO (15:39)
[2016-11-03] MEDS ORDERED: OMEP40CA41 PO (09:52)
[2016-11-03] MEDS ORDERED: DIME1CAP2 PO (16:19)
[2016-11-03] MEDS ORDERED: SNG10 PO (17:41)
[2016-11-03] MEDS ORDERED: VENL75CA PO (18:32)
[2016-11-03] MEDS ORDERED: ATR10 PO (18:32)
[2016-11-03] MEDS ORDERED: TPM/50 PO (18:32)
[2016-11-03] MEDS ORDERED: FERR1TAB62 PO (19:23)
[2016-11-03] MEDS ORDERED: AMIT100T2 PO (19:23)
[2016-11-03] MEDS ORDERED: ATV5X PO (19:23)
[2016-11-03] MEDS ORDERED: CYNI1000 IM (19:26)
[2016-11-03] MEDS ORDERED: CHOLCAP5 PO (19:28)
[2016-11-03] MEDS ORDERED: CHOL1CAP57 PO (19:28)
[2016-11-03] MEDS ORDERED: RIZA10TA21 PO (19:30)
[2016-11-03] MEDS ORDERED: ALBINS/ NEB (19:33)
[2016-11-03] MEDS ORDERED: CRAN500C2 PO (21:00)
[2016-11-03] MEDS ORDERED: ALBU18002 INH (21:03)
== END 2016-09-12 21:46 | disposition home or self-care (01) ==
LOC: C.EDB 20:20 → C.EDC 21:46
DX: S90.911A Unspecified superficial injury of right ankle, initial encounter (principal); S80.11XA Contusion of right lower leg, initial encounter; W20.8XXA Other cause of strike by thrown, projected or falling object, initial encounter; J45.909 Unspecified asthma, uncomplicated; G35 Multiple sclerosis; Z86.19 Personal history of other infectious and parasitic diseases; Z87.19 Personal history of other diseases of the digestive system; Z90.49 Acquired absence of other specified parts of digestive tract; Z88.2 Allergy status to sulfonamides; Z88.3 Allergy status to other anti-infective agents; Z88.5 Allergy status to narcotic agent; Z88.8 Allergy status to other drugs, medicaments and biological substances

== ENCOUNTER 2016-10-10 17:38 | Emergency (ER) | payer BC, OTHER ==
[~2016-10-10] VITALS: Ht 170.2 cm; Wt 117.2 kg
[~2016-10-10 17:38] MED LIST changes: -ALBU1AER9 INH; -AMT50 PO; -CHOL20009 PO; -DPPI150 IM; +LEVO5TAB7 PO; -PRED10TA PO; -SNG10 PO; -TRIA1SPR4 NAE
[2016-10-10 17:42] VITALS: TEMP 36.4; Ht 170.2 cm; Wt 117.2 kg
[2016-10-10] MEDS ORDERED: ALBUT/IPRATROP 3MG/0.5MG NEB 3 ML VIAL INH STA (17:53)
[2016-10-10] MEDS ORDERED: SODIUM CHLORIDE 0.9% 1000ML 1,000 ML IV STA (17:53)
--- NOTE | 2016-10-10 17:55 | EMERGENCY ROOM VISIT NOTE ---
History Report prepared by Vic: Adamaris Bolton Under the Supervision of: Dr. Don Pederson M.D. First contact with patient: 17:46 Chief Complaint: ILLNESS Stated Complaint: REFERRED BY PCP,FLU SYMPTOMS,SOB History of Present Illness The patient is a 26 year old female who presents to the Emergency Room with complaints of flu-like symptoms beginning 4 days ago. The patient reports having a sore throat and stuffy nose. One day ago, she started having left ear pain and her right ear began hurting today.She reports having a tight pain in her chest today. The patient is short of breath, and also has a stuffy nose and the chills. She denies coughing, vomiting, and diarrhea. She has been in contact with her brother who is sick and has a bilateral ear infection. She is also around family members who have been febrile, have pink eye, and the flu. She has a history of blood clots, anemia, and multiple sclerosis. She is immunocompromised. The patient also has asthma and uses an inhaler and nebulizer. Source of History: patient Onset: 4 days ago Position: other (global) Quality: other (flu-like symptoms ) Associated Symptoms: + chills, + sorethroat (additioanl symptoms: stuffy nose, bilateral ear pain ), No cough, No vomiting, No diarrhea Review of Systems See HPI for pertinent positives & negatives. A total of 10 systems reviewed and were otherwise negative. Past Medical & Surgical Medical Problems: (1) Asthma (2) Bronchitis (3) gastric bypass (4) Influenza A (5) Multiple sclerosis (6) Pneumonia (7) Ulcer Surgical Problems: (1) S/P cholecystectomy Family History Diabetes mellitus FH: gallbladder disease FH: heart disease Hypertension Kidney disease Kidney stones Social History Smoking Status: Never Smoker Alcohol Use: occasionally Drug Use: none Marital Status: single Housing Status: lives with family Occupation Status: unemployed Current/Historical Medications Scheduled Amitriptyline Hcl (Elavil), 100 MG PO HS Cholecalciferol (Vitamin D3), 1,000 INTER.UNIT PO DAILY Cholecalciferol (Vitamin D3), 5,000 INTER.UNIT PO DAILY Cranberry (Vaccinium Macrocarp (Cranberry), 500 MG PO DAILY Cyanocobalamin (Cyanocobalamin), 1,000 MCG IM MONTHLY Dimethyl Fumarate (Tecfidera), 240 MG PO BID Doxycycline Hyclate (Vibramycin), 100 MG PO BID Ferrous Sulfate (Ferrous Sulfate), 325 MG PO BID Omeprazole (Prilosec), 40 MG PO BID Topiramate (Topamax), 50 MG PO BID Venlafaxine Hcl (Effexor Xr), 75 MG PO QAM Scheduled PRN Albuterol Sulf (Proventil 0.083% 2.5MG/3ML), 3 ML NEB Q4H PRN for Wheezing Albuterol Sulfate (Proair Respiclick), 2 PUFFS INH Q4H PRN for SOB/Wheeze/Prior to Exercise Hydroxyzine HCl (Hydroxyzine HCl), 10 MG PO HS PRN for Sleep Lorazepam (Lorazepam), 0.5 MG PO HS PRN for Anxiety and/or Sedation Rizatriptan Benzoate (Rizatriptan Benzoate), 10 MG PO UD PRN for Migraine Miscellaneous Medications Medroxyprogesterone Acetate (C (Medroxyprogesterone Aceta), 150 MG IM Allergies Coded Allergies: Sulfa Antibiotics (Verified Allergy, Severe, HIVES, 10/10/16) Hydrocodone (Verified Allergy, Intermediate, HIVES, 10/10/16) Cephalosporins (Verified Allergy, Mild, 0, 10/10/16) Cephalexin (Verified Allergy, Unknown, ., 10/10/16) Methocarbamol (Verified Allergy, Unknown, UNKNOWN, 10/10/16) Clindamycin (Unverified Adverse Reaction, Unknown, HEARTBURN, 10/10/16) Physical Exam Vital Signs Date Time Temp Pulse Resp B/P (MAP) Pulse Ox O2 Delivery O2 Flow Rate FiO2 10/10/16 20:00 108 24 117/68 98 10/10/16 19:14 118 18 111/70 99 Room Air 10/10/16 17:42 36.4 114 18 125/81 98 Room Air Physical Exam GENERAL: Patient is in no acute distress. HEENT: No acute trauma, normocephalic atraumatic, mucous membranes moist, mild nasal congestion, no scleral icterus. Fluid behind both TM's. No infection. No throat erythema or exudate. NECK: No stridor, no adenopathy, no meningismus, trachea is midline. LUNGS: Clear to auscultation bilaterally, no wheeze, no rhonchi, breath sounds equal. HEART: Mildly tachycardic. Regular rhythm. No murmurs. ABDOMEN: Soft, nontender, bowel sounds positive, no hernias, no peritonitis. EXTREMITIES: No cyanosis or edema, full range of motion of all the joints without pain or difficulty, no signs for acute trauma. NEUROLOGIC: Oriented x 3, no acute motor or sensory deficits, no focal weakness. SKIN: No rash, no jaundice, no diaphoresis. Medical Decision & Procedures ER Provider Diagnostic Interpretation: X-ray results as stated below per interpretation by me and the radiologist: CHEST 2 VIEWS ROUTINE CLINICAL HISTORY: Fever. Sepsis. COMPARISON STUDY: Chest radiograph July 09, 2016. FINDINGS: A left internal jugular [id number] is in place. Cardiomediastinal silhouette is normal. There is no pneumothorax or pleural effusion. There is no consolidation to suggest pneumonia. Pulmonary vascularity is normal. Appearance of the chest is unchanged. There are cholecystectomy clips. IMPRESSION: No acute cardiopulmonary findings. Electronically signed by: Harman Marcus M.D. 10/10/2016 6:54 PM Dictated Date/Time: 10/10/2016 6:53 PM Laboratory Results 10/10/16 18:20 Red Blood Count 3.75, Mean Corpuscular Volume 98.4, Mean Corpuscular Hemoglobin 33.6, Mean Corpuscular Hemoglobin Concent 34.1, Mean Platelet Volume 10.3, Neutrophils (%) (Auto) 57.5, Lymphocytes (%) (Auto) 27.9, Monocytes (%) (Auto) 10.7, Eosinophils (%) (Auto) 2.9, Basophils (%) (Auto) 1.0, Neutrophils # (Auto ) 2.97, Lymphocytes # (Auto) 1.44, Monocytes # (Auto) 0.55, Eosinophils # (Auto ) 0.15, Basophils # (Auto) 0.05 10/10/16 18:20 Test 10/10/16 18:20 White Blood Count 5.16 K/uL (4.8-10.8) Red Blood Count 3.75 M/uL (4.2-5.4) Hemoglobin 12.6 g/dL (12.0-16.0) Hematocrit 36.9 % (37-47) Mean Corpuscular Volume 98.4 fL (80-100) Mean Corpuscular Hemoglobin 33.6 pg (25-34) Mean Corpuscular Hemoglobin Concent 34.1 g/dl (32-36) Platelet Count 184 K/uL (130-400) Mean Platelet Volume 10.3 fL (7.4-10.4) Neutrophils (%) (Auto) 57.5 % Lymphocytes (%) (Auto) 27.9 % Monocytes (%) (Auto) 10.7 % Eosinophils (%) (Auto) 2.9 % Basophils (%) (Auto) 1.0 % Neutrophils # (Auto) 2.97 K/uL (1.4-6.5) Lymphocytes # (Auto) 1.44 K/uL (1.2-3.4) Monocytes # (Auto) 0.55 K/uL (0.11-0.59) Eosinophils # (Auto) 0.15 K/uL (0-0.5) Basophils # (Auto) 0.05 K/uL (0-0.2) RDW Standard Deviation 52.2 fL (36.4-46.3) RDW Coefficient of Variation 14.4 % (11.5-14.5) Immature Granulocyte % (Auto) 0.0 % Immature Granulocyte # (Auto) 0.00 K/uL (0.00-0.02) Anion Gap 13.0 mmol/L (3-11) Est Creatinine Clear Calc Drug Dose 169.5 ml/min Estimated GFR () 140.3 Estimated GFR (Non- 121.1 BUN/Creatinine Ratio 13.2 (10-20) Calcium Level 8.4 mg/dl (8.5-10.1) Total Bilirubin 0.2 mg/dl (0.2-1) Aspartate Amino Transf (AST/SGOT) 11 U/L (15-37) Alanine Aminotransferase (ALT/SGPT) 16 U/L (12-78) Alkaline Phosphatase 98 U/L (45-117) Total Protein 6.6 gm/dl (6.4-8.2) Albumin 3.7 gm/dl (3.4-5.0) Globulin 2.9 gm/dl (2.5-4.0) Albumin/Globulin Ratio 1.3 (0.9-2) Laboratory results reviewed by me. Medications Administered Medications (Trade) Dose Ordered Sig/Joie Route Start Time Stop Time Status Last Admin Dose Admin Sodium Chloride 1,000 ml @ 999 mls/hr Q1H1M STAT IV 10/10/16 17:53 10/10/16 18:53 DC 10/10/16 18:25 999 MLS/HR Albuterol/ Ipratropium (Duoneb) 3 ml NOW STAT INH 10/10/16 17:53 10/10/16 17:56 DC 10/10/16 18:26 3 ML Heparin Sodium (Porcine) (Heparin 100 Unit/ml 5ml Flush) 5 ml STK-MED ONCE .ROUTE 10/10/16 19:54 10/10/16 19:55 DC 10/10/16 19:59 5 ML ECG Indication: other (flu symptoms) Rate (beats per minute): 112 Rhythm: sinus tachycardia Findings: no acute ischemic change, no ectopy, other (some artifact) ED Course 1747: The patient was evaluated in room C9. A complete history and physical exam was performed. 1752: Ordered Duoneb 3 ml INH, Sodium Chloride 1,000 ml @ 999 mls/hr IV. 1956: Reevaluated the patient. Discussed results and discharge instructions: She verbalized understanding and agreement. The patient is ready for discharge. Medical Decision The patient is a 26 year old female who presents to the ED with complaints of flu-like symptoms. Differential diagnoses considered include bronchitis, pneumonia, exacerbation of asthma, flu, dehydration, sinusitis, otitis media, and electrolyte imbalance. There is no leukocytosis or concerning anemia. No significant electrolyte abnormality, kidney failure or hepatitis. EKG shows a sinus tachycardia, no acute ischemia. Chest film does not show pneumonia or CHF. On exam, the patient was not febrile, she was not hypoxic, she was not toxic. The patient received IV saline, she received albuterol via MDI. The patient has an acute bronchitis, likely viral. She also is suffering from an exacerbation of asthma. She is being discharged with frequent albuterol use , rest and hydration. As she is somewhat immunocompromised and has developed pneumonia before after the start of a viral illness, I am going to give her a prescription for doxycycline. If she is not improving or worsening, she can start this medication, if improving, she does not need to fill the antibiotic prescription. Medication Reconciliation: I attest that I have personally reviewed the patient' s current medication list. Blood Pressure Screening: Patient was found to have normal blood pressure on screening and does not require follow-up. Impression Primary Impression: Acute bronchitis Additional Impression: Asthma exacerbation Scribe Attestation The scribe's documentation has been prepared under my direction and personally reviewed by me in its entirety. I confirm that the note above accurately reflects all work, treatment, procedures, and medical decision making performed by me. Departure Information Dispostion Home / Self-Care Prescriptions Doxycycline Hyclate (VIBRAMYCIN) 100 Mg Cap 100 MG PO BID for 7 Days, #14 CAP Prov: Don Pederson M.D. 10/10/16 Referrals Mendoza Daniels M.D. (PCP) Patient Instructions My [facility] Problem Qualifiers
[2016-10-10 18:35] LABS: BASO ABS # 0.05 K/uL (0-0.2); COMPLETE YES; EOS % 2.9 %; HEMATOCRIT 36.9 % (37-47); LYMPH % 27.9 %; LYMPH ABS # 1.44 K/uL (1.2-3.4); MEAN CELL VOLUME 98.4 fL (80-100); MEAN CORPUSCULAR HEMOGLOBIN 33.6 pg (25-34); MEAN CORPUSCULAR HGB CONC 34.1 g/dl (32-36); MEAN PLATELET VOLUME 10.3 fL (7.4-10.4); MONO % 10.7 %; NEUT % 57.5 %; PLATELET COUNT 184 K/uL (130-400); RED BLOOD COUNT 3.75 M/uL (4.2-5.4); WHITE BLOOD COUNT 5.16 K/uL (4.8-10.8)
[2016-10-10 18:52] LABS: BUN/CREATININE RATIO 13.2 (10-20); CALCIUM 8.4 mg/dl (8.5-10.1); CREATININE 0.66 mg/dl (0.60-1.20); POTASSIUM 3.6 mmol/L (3.5-5.1)
[2016-10-10 18:55] LABS: ALB/GLOB RATIO 1.3 (0.9-2)
--- NOTE | 2016-10-10 18:55 | DIAGNOSTIC IMAGING REPORT ---
CHEST 2 VIEWS ROUTINE CLINICAL HISTORY: Fever. Sepsis. COMPARISON STUDY: Chest radiograph July 09, 2016. FINDINGS: A left internal jugular [id number] is in place. Cardiomediastinal silhouette is normal. There is no pneumothorax or pleural effusion. There is no consolidation to suggest pneumonia. Pulmonary vascularity is normal. Appearance of the chest is unchanged. There are cholecystectomy clips. IMPRESSION: No acute cardiopulmonary findings. Electronically signed by: Harman Marcus M.D. 10/10/2016 6:54 PM Dictated Date/Time: 10/10/2016 6:53 PM
[2016-10-10] MEDS ORDERED: DOXY100C PO (19:47)
[2016-10-10 20:00] VITALS: BP 117/68; PULSE 108; O2SAT 98
[2016-11-03] MEDS ORDERED: OMEP40CA41 PO (09:52)
[2016-11-03] MEDS ORDERED: DIME1CAP2 PO (16:19)
[2016-11-03] MEDS ORDERED: SNG10 PO (17:41)
[2016-11-03] MEDS ORDERED: TPM/50 PO (18:32)
[2016-11-03] MEDS ORDERED: ATR10 PO (18:32)
[2016-11-03] MEDS ORDERED: VENL75CA PO (18:32)
[2016-11-03] MEDS ORDERED: ATV5X PO (19:23)
[2016-11-03] MEDS ORDERED: FERR1TAB62 PO (19:23)
[2016-11-03] MEDS ORDERED: AMIT100T2 PO (19:23)
[2016-11-03] MEDS ORDERED: CYNI1000 IM (19:26)
[2016-11-03] MEDS ORDERED: CHOL1CAP57 PO (19:28)
[2016-11-03] MEDS ORDERED: CHOLCAP5 PO (19:28)
[2016-11-03] MEDS ORDERED: RIZA10TA21 PO (19:30)
[2016-11-03] MEDS ORDERED: ALBINS/ NEB (19:33)
[2016-11-03] MEDS ORDERED: CRAN500C2 PO (21:00)
[2016-11-03] MEDS ORDERED: ALBU18002 INH (21:03)
== END 2016-10-10 20:01 | disposition home or self-care (01) ==
LOC: C.EDB 17:40 → C.EDC 20:01
DX: J20.9 Acute bronchitis, unspecified (principal); J45.901 Unspecified asthma with (acute) exacerbation; Z98.84 Bariatric surgery status; G35 Multiple sclerosis; Z87.01 Personal history of pneumonia (recurrent); Z83.3 Family history of diabetes mellitus; Z83.79 Family history of other diseases of the digestive system; Z82.49 Family history of ischemic heart disease and other diseases of the circulatory system; Z84.1 Family history of disorders of kidney and ureter; Z79.899 Other long term (current) drug therapy

== ENCOUNTER 2016-10-20 17:12 | Emergency (ER) | payer BC, OTHER ==
[~2016-10-20] VITALS: Ht 170.2 cm; Wt 113.0 kg
[2016-10-20 17:19] VITALS: Ht 170.2 cm; Wt 113.0 kg
[2016-10-20] MEDS ORDERED: ACETAMINOPHEN 500 MG TAB PO STA (17:40)
--- NOTE | 2016-10-20 18:10 | EMERGENCY ROOM VISIT NOTE ---
ED Visit Note First contact with patient: 17:26 CHIEF COMPLAINT: Ankle pain HISTORY OF PRESENT ILLNESS: This 26-year-old female patient presents to the emergency department with her mother after sustaining an injury to the left ankle with a twisting, inversion motion occurred earlier today. Patient states she jumped off of a structure that was approximately 1.5 feet off the ground, landed wrong and twisted the left ankle. She denies any other injuries, denies hitting her head or loss of consciousness. The patient complains of pain along the outside of the ankle. The patient has no pain of the foot. The patient rates the pain as throbbing and 7/10. The patient is not able to bear weight on the foot. Constant pain, worse with movement, weight bearing, and the dependent position. No knee pain, the patient is able to move their toes. No numbness or weakness of the foot, no laceration. The patient has had a previous fracture to this ankle, but no surgeries. The patient has taken nothing for the pain. The patient denies any other injury. REVIEW OF SYSTEMS: A 6 system review of systems was completed with positives and pertinent negatives listed in the HPI. ALLERGIES: See chart MEDICATIONS: See chart PMH: See chart SOCIAL HISTORY: See chart PHYSICAL EXAM: Vital Signs: Reviewed Nurse's notes, vital signs stable. GENERAL : Pleasant and cooperative, no acute distress, but appears in pain, well- developed, well-nourished. MENTAL STATUS: Alert, oriented to person place and time, and cooperative. MUSCULOSKELETAL: The left ankle is swollen and tender over the lateral malleolus, but the skin is intact and there is no ligamentous instability. There is no fifth metatarsal tenderness. There is no tenderness over the rest of the foot. There is no calf or tibia/fibular tenderness. There is no visual deformity. The foot and toes are warm and well-perfused. Dorsalis pedis pulse 2+. Sensation to pain and light touch is intact. Capillary refill less than 2 seconds. IMAGING: LEFT ANKLE MIN 3 VIEWS ROUTINE CLINICAL HISTORY: left ankle pain, swelling, eval fx, dislocation trauma. Pain. COMPARISON: None. DISCUSSION: The bones and joint spaces appear intact. There is no evidence of fracture, dislocation or bony disease. Lateral periumbilical soft tissue edema IMPRESSION: Soft tissue edema. No acute bony abnormality. EMERGENCY DEPARTMENT COURSE: I examined the patient. Differential diagnosis includes ankle sprain, strain, fracture, dislocation, contusion. X-rays of the left ankle were reviewed by myself and read by radiology and reveal no acute fracture. Gel ankle splint was applied to the ankle under my direction and the position was satisfactory. Neurovascular status was rechecked and intact. The patient states she is unable to use crutches due to her MS, but states she has both a wheelchair and walker at home and will be able to stay off of the ankle while it heals. The patient was discharged home in good condition. Problem List Medical Problems: (1) Asthma Status: Chronic (2) Bronchitis Status: Resolved (3) gastric bypass Status: Resolved (4) Influenza A Status: Resolved (5) Multiple sclerosis Status: Chronic (6) Pneumonia Status: Resolved Surgical Problems: (1) S/P cholecystectomy Status: Resolved Current/Historical Medications Scheduled Amitriptyline Hcl (Elavil), 100 MG PO HS Cholecalciferol (Vitamin D3), 1,000 INTER.UNIT PO DAILY Cholecalciferol (Vitamin D3), 5,000 INTER.UNIT PO DAILY Cranberry (Vaccinium Macrocarp (Cranberry), 500 MG PO DAILY Cyanocobalamin (Cyanocobalamin), 1,000 MCG IM MONTHLY Dimethyl Fumarate (Tecfidera), 240 MG PO BID Ferrous Sulfate (Ferrous Sulfate), 325 MG PO BID Montelukast Sod (Montelukast Sodium), 10 MG PO HS Omeprazole (Prilosec), 40 MG PO BID Topiramate (Topamax), 50 MG PO BID Venlafaxine Hcl (Effexor Xr), 75 MG PO QAM Scheduled PRN Albuterol Sulf (Proventil 0.083% 2.5MG/3ML), 3 ML NEB Q4H PRN for Wheezing Albuterol Sulfate (Proair Respiclick), 2 PUFFS INH Q4H PRN for SOB/Wheeze/Prior to Exercise Hydroxyzine HCl (Hydroxyzine HCl), 10 MG PO HS PRN for Sleep Lorazepam (Lorazepam), 0.5 MG PO HS PRN for Anxiety and/or Sedation Rizatriptan Benzoate (Rizatriptan Benzoate), 10 MG PO UD PRN for Migraine Miscellaneous Medications Medroxyprogesterone Acetate (C (Medroxyprogesterone Aceta), 150 MG IM Allergies Coded Allergies: Sulfa Antibiotics (Verified Allergy, Severe, HIVES, 10/10/16) Hydrocodone (Verified Allergy, Intermediate, HIVES, 10/10/16) Cephalosporins (Verified Allergy, Mild, 0, 10/10/16) Cephalexin (Verified Allergy, Unknown, ., 10/10/16) Methocarbamol (Verified Allergy, Unknown, UNKNOWN, 10/10/16) Clindamycin (Unverified Adverse Reaction, Unknown, HEARTBURN, 10/10/16) Vital Signs Date Time Temp Pulse Resp B/P (MAP) Pulse Ox O2 Delivery O2 Flow Rate FiO2 10/20/16 17:19 37.0 129 18 117/72 96 Room Air Medications Administered Medications (Trade) Dose Ordered Sig/Joie Route Start Time Stop Time Status Last Admin Dose Admin Acetaminophen (Tylenol Tab) 1,000 mg NOW STAT PO 10/20/16 17:40 10/20/16 17:43 DC 10/20/16 17:52 1,000 MG Departure Information Impression Primary Impression: Moderate left ankle sprain Dispostion Home / Self-Care Condition GOOD Referrals Mendoza Daniels M.D. (PCP) Patient Instructions My [facility] [employer] Additional Instructions Ice and elevation for 2 days to help reduce pain and swelling. Use crutches at all times to avoid weight bearing on your left ankle and wear the splint at all times except for bathing. Ibuprofen, 600 mg and Tylenol 1000 mg every 6-8 hours if needed for pain. See your doctor or an orthopedic surgeon if there is no improvement in 4 - 5 days. Problem Qualifiers Primary Impression: Moderate left ankle sprain Encounter type: initial encounter Qualified Codes: S93.402A - Sprain of unspecified ligament of left ankle, initial encounter
--- NOTE | 2016-10-20 18:25 | DIAGNOSTIC IMAGING REPORT ---
LEFT ANKLE MIN 3 VIEWS ROUTINE CLINICAL HISTORY: left ankle pain, swelling, eval fx, dislocation trauma. Pain. COMPARISON: None. DISCUSSION: The bones and joint spaces appear intact. There is no evidence of fracture, dislocation or bony disease. Lateral periumbilical soft tissue edema IMPRESSION: Soft tissue edema. No acute bony abnormality. Electronically signed by: Fabio Couch M.D. 10/20/2016 6:23 PM Dictated Date/Time: 10/20/2016 6:23 PM
[2016-10-20 19:32] VITALS: BP 115/71; PULSE 118; TEMP 37; O2SAT 96
[2016-10-20] MEDS ORDERED: MEDR150I19 IM (21:03)
[2016-11-03] MEDS ORDERED: OMEP40CA41 PO (09:52)
[2016-11-03] MEDS ORDERED: DIME1CAP2 PO (16:19)
[2016-11-03] MEDS ORDERED: SNG10 PO (17:41)
[2016-11-03] MEDS ORDERED: VENL75CA PO (18:32)
[2016-11-03] MEDS ORDERED: ATR10 PO (18:32)
[2016-11-03] MEDS ORDERED: TPM/50 PO (18:32)
[2016-11-03] MEDS ORDERED: ATV5X PO (19:23)
[2016-11-03] MEDS ORDERED: FERR1TAB62 PO (19:23)
[2016-11-03] MEDS ORDERED: AMIT100T2 PO (19:23)
[2016-11-03] MEDS ORDERED: CYNI1000 IM (19:26)
[2016-11-03] MEDS ORDERED: CHOLCAP5 PO (19:28)
[2016-11-03] MEDS ORDERED: CHOL1CAP57 PO (19:28)
[2016-11-03] MEDS ORDERED: RIZA10TA21 PO (19:30)
[2016-11-03] MEDS ORDERED: ALBINS/ NEB (19:33)
[2016-11-03] MEDS ORDERED: CRAN500C2 PO (21:00)
[2016-11-03] MEDS ORDERED: ALBU18002 INH (21:03)
== END 2016-10-20 19:33 | disposition home or self-care (01) ==
LOC: C.EDB 17:13 → C.EDD 19:33
DX: S93.402A Sprain of unspecified ligament of left ankle, initial encounter (principal); X50.9XXA Other and unspecified overexertion or strenuous movements or postures, initial encounter; J45.909 Unspecified asthma, uncomplicated; G35 Multiple sclerosis

== ENCOUNTER 2016-11-03 21:16 | Emergency (ER) | payer BC, OTHER ==
[~2016-11-03] VITALS: Ht 170.2 cm; Wt 113.5 kg
[~2016-11-03 21:16] MED LIST changes: +ALBINS/ NEB; +ALBU18002 INH; +AMIT100T2 PO; +ATR10 PO; +ATV5X PO; +CHOL1CAP57 PO; +CHOLCAP5 PO; +CRAN500C2 PO; +CYNI1000 IM; +DIME1CAP2 PO; +FERR325T PO; -LEVO5TAB7 PO; +MEDR150I19 IM; +MXL10 PO; +OMEP40CA41 PO; +SNG10 PO; +TPM/50 PO; +VENL75CA PO
[2016-11-03 21:21] VITALS: TEMP 36.5; Ht 170.2 cm; Wt 113.5 kg
--- NOTE | 2016-11-03 22:25 | DIAGNOSTIC IMAGING REPORT ---
LEFT LOWER EXTREMITY VENOUS DOPPLER CLINICAL HISTORY: L posterior knee pain - h/o DVT/PE apr 2016 COMPARISON STUDY: Left lower extremity venous Doppler December 19, 2014. TECHNIQUE: Sonography of the deep venous system of the left lower extremity was performed. Compression and augmentation were evaluated. FINDINGS: The left common femoral, superficial femoral and popliteal veins were compressible. Augmentation was normal. Flow was shown within the deep calf vessels. IMPRESSION: No evidence of deep venous thrombus within the left lower extremity. Electronically signed by: Harman Marcus M.D. 11/03/2016 10:23 PM Dictated Date/Time: 11/03/2016 10:22 PM
--- NOTE | 2016-11-03 22:39 | EMERGENCY ROOM VISIT NOTE ---
History First contact with patient: 21:27 Chief Complaint: LEG PAIN,LEG INJURY Stated Complaint: LEFT LEG AND ANKLE PAIN History of Present Illness The patient is a 26 year old female who presents to the Emergency Room with complaints of left posterior knee pain for the past 4 days. The patient reports that she had a severe left ankle sprain, and has been following with Dr. Arteaga for the past 2 weeks. She is currently intermittently wearing a fracture boot. The patient reports that she still has persistent ankle and leg pain, as well as hip pain. She also reports a history of chronic back pain. The patient has a significant history of multiple sclerosis. The patient also reports that she had a blood clot in her right neck, arm and left chest after being evaluated in [facility] in April 2016. She was not treated with blood thinners. The patient reports that her posterior left knee pain is worsened with ambulation, rating her pain a 5 out of 10. Review of Systems 10 system review was performed and was negative except for pertinent positives and negatives as indicated in history of present illness Past Medical/Surgical History Medical Problems: (1) Asthma (2) Bronchitis (3) gastric bypass (4) Influenza A (5) Multiple sclerosis (6) Pneumonia (7) Ulcer Surgical Problems: (1) S/P cholecystectomy Family History Diabetes mellitus FH: gallbladder disease FH: heart disease Hypertension Kidney disease Kidney stones Social History Smoking Status: Never Smoker Alcohol Use: occasionally Drug Use: none Marital Status: single Housing Status: lives with family Occupation Status: unemployed Current/Historical Medications Scheduled Amitriptyline Hcl (Elavil), 100 MG PO HS Cholecalciferol (Vitamin D3), 1,000 INTER.UNIT PO DAILY Cholecalciferol (Vitamin D3), 5,000 INTER.UNIT PO DAILY Cranberry (Vaccinium Macrocarp (Cranberry), 500 MG PO DAILY Cyanocobalamin (Cyanocobalamin), 1,000 MCG IM MONTHLY Dimethyl Fumarate (Tecfidera), 240 MG PO BID Ferrous Sulfate (Ferrous Sulfate), 325 MG PO BID Medroxyprogesterone Acetate (C (Medroxyprogesterone Aceta), 150 MG IM Q3 MONTHS Montelukast Sod (Montelukast Sodium), 10 MG PO HS Omeprazole (Prilosec), 40 MG PO BID Topiramate (Topamax), 50 MG PO BID Venlafaxine Hcl (Effexor Xr), 75 MG PO QAM Scheduled PRN Albuterol Sulf (Proventil 0.083% 2.5MG/3ML), 3 ML NEB Q4H PRN for Wheezing Albuterol Sulfate (Proair Respiclick), 2 PUFFS INH Q4H PRN for SOB/Wheeze/Prior to Exercise Hydroxyzine HCl (Hydroxyzine HCl), 10 MG PO HS PRN for Sleep Lorazepam (Lorazepam), 0.5 MG PO HS PRN for Anxiety and/or Sedation Rizatriptan Benzoate (Rizatriptan Benzoate), 10 MG PO UD PRN for Migraine Allergies Coded Allergies: Sulfa Antibiotics (Verified Allergy, Severe, HIVES, 10/10/16) Hydrocodone (Verified Allergy, Intermediate, HIVES, 10/10/16) Cephalosporins (Verified Allergy, Mild, 0, 10/10/16) Cephalexin (Verified Allergy, Unknown, ., 10/10/16) Methocarbamol (Verified Allergy, Unknown, UNKNOWN, 10/10/16) Clindamycin (Unverified Adverse Reaction, Unknown, HEARTBURN, 10/10/16) Physical Exam Vital Signs Date Time Temp Pulse Resp B/P (MAP) Pulse Ox O2 Delivery O2 Flow Rate FiO2 11/03/16 21:21 36.5 103 16 123/65 98 Room Air Physical Exam CONSTITUTIONAL: Healthy and well nourished. Alert and oriented X 3 with positive affect. HEENT: Normocephalic, atraumatic. Pupils equal, round and reactive. NECK: Full active range of motion without discomfort. CARDIOVASCULAR: Regular rate and rhythm with no murmurs, rubs or gallops. MUSCULOSKELETAL: Examination shows moderate edema around the left ankle with aged ecchymosis. She has mild tenderness to palpation about the ankle. She has no focal tenderness through the gastrocnemius muscle. No popliteal masses. No focal tenderness through the knee joints. Patient is able to actively flex and extend the knee without obvious discomfort. Pedal pulses are intact. INTEGUMENTARY: No rash or other significant dermatologic conditions noted. NEUROLOGIC: Left foot and toes are sensory intact. Medical Decision & Procedures ER Provider Diagnostic Interpretation: Venous ultrasound of the left lower extremity does not show any evidence for deep vein thrombosis. Radiologist report is as follows: LEFT LOWER EXTREMITY VENOUS DOPPLER CLINICAL HISTORY: L posterior knee pain - h/o DVT/PE apr 2016 COMPARISON STUDY: Left lower extremity venous Doppler December 19, 2014. TECHNIQUE: Sonography of the deep venous system of the left lower extremity was performed. Compression and augmentation were evaluated. FINDINGS: The left common femoral, superficial femoral and popliteal veins were compressible. Augmentation was normal. Flow was shown within the deep calf vessels. IMPRESSION: No evidence of deep venous thrombus within the left lower extremity. ED Course Patient history and physical exam were performed. Nurse's notes were reviewed. Vital signs were reviewed and normal. The patient refused any analgesics while in the emergency department. Venous ultrasound of the left lower extremity was negative for deep vein thrombosis. I did suggest that the patient continue follow-up with Dr. Arteaga as I suspect that her pain is likely from her fracture boot use. She also has crutches with her as well. I also explained that her pain could also be secondary to lumbar radiculitis, which can also be evaluated by her orthopedic surgeon. The patient voiced understanding of all discharge instructions, and was happy with plan of care. The patient was also seen and examined by Dr. Melendez, ED attending physician , who agrees with workup and plan of care. Medical Decision See previous section, with consider differentials of musculotendinous strain and lumbar radiculitis. I do not suspect intra-articular knee etiology as the patient has full active range of motion without discomfort. Impression Primary Impression: Posterior left knee pain Departure Information Referrals Mendoza Daniels M.D. (PCP) Patient Instructions My [facility]
[2016-11-03 23:18] VITALS: BP 117/82; PULSE 101; O2SAT 100
--- NOTE | 2016-11-04 19:07 | EMERGENCY ROOM VISIT NOTE ---
ED Visit Note First contact with patient: 21:27 I have personally seen and evaluated the patient with the PA. I agree with the diagnosis and management decisions and have been personally involved in the case. Please see Geovany Rinaldi PA-C's notes for further details of the history, physical and visit.
== END 2016-11-03 23:20 | disposition home or self-care (01) ==
LOC: C.EDB 21:17
DX: M25.562 Pain in left knee (principal); G35 Multiple sclerosis; Z86.718 Personal history of other venous thrombosis and embolism; J45.909 Unspecified asthma, uncomplicated; Z98.84 Bariatric surgery status; Z87.01 Personal history of pneumonia (recurrent); Z83.3 Family history of diabetes mellitus; Z83.79 Family history of other diseases of the digestive system; Z82.49 Family history of ischemic heart disease and other diseases of the circulatory system; Z84.1 Family history of disorders of kidney and ureter; Z79.899 Other long term (current) drug therapy; M79.605 Pain in left leg

== ENCOUNTER 2017-08-06 15:51 | Emergency (ER) | payer BC, OTHER ==
[~2017-08-06] VITALS: Ht 170.2 cm; Wt 118.0 kg
[~2017-08-06 15:51] MED LIST changes: -ALBINS/ NEB; -ALBU18002 INH; -AMIT100T2 PO; -ATR10 PO; -ATV5X PO; -CHOL1CAP57 PO; -CHOLCAP5 PO; -CRAN500C2 PO; -CYNI1000 IM; -DIME1CAP2 PO; -FERR325T PO; -MXL10 PO; -SNG10 PO; -TPM/50 PO
[2017-08-06 15:55] VITALS: TEMP 36.4; Ht 170.2 cm; Wt 118.0 kg
[2017-08-06] MEDS ORDERED: DIME1CAP2 PO (16:19)
[2017-08-06] MEDS ORDERED: KETOROLAC TROMETHAMINE 30 MG/ML VIAL IV STA (17:13)
[2017-08-06] MEDS ORDERED: SODIUM CHLORIDE 0.9% 1000ML 2,000 ML IV STA (17:13)
--- NOTE | 2017-08-06 17:38 | DIAGNOSTIC IMAGING REPORT ---
CHEST ONE VIEW PORTABLE CLINICAL HISTORY: Abdominal pain. COMPARISON STUDY: Chest radiograph October 10, 2016. FINDINGS: A left internal jugular [id number] is in place. There is no pneumothorax or pleural effusion. There is no consolidation. Cardiomediastinal silhouette is stable. Lung volumes are slightly diminished. This is unchanged. IMPRESSION: No acute cardiopulmonary findings. Electronically signed by: Harman Marcus M.D. 08/06/2017 5:37 PM Dictated Date/Time: 08/06/2017 5:36 PM
[2017-08-06] MEDS ORDERED: SNG10 PO (17:41)
[2017-08-06] MEDS ORDERED: TPM/50 PO (18:32)
[2017-08-06] MEDS ORDERED: ATR10 PO (18:32)
[2017-08-06 18:38] LABS: HEMATOCRIT 40.1 % (37-47); HEMOGLOBIN 13.7 g/dL (12.0-16.0); MEAN CELL VOLUME 94.6 fL (80-100); MEAN CORPUSCULAR HEMOGLOBIN 32.3 pg (25-34); MEAN CORPUSCULAR HGB CONC 34.2 g/dl (32-36); MEAN PLATELET VOLUME 10.4 fL (7.4-10.4); PLATELET COUNT 233 K/uL (130-400); RED CELL DISTRIBUTION WIDTH CV 14.7 % (11.5-14.5); RED CELL DISTRIBUTION WIDTH SD 50.3 fL (36.4-46.3); WHITE BLOOD COUNT 5.42 K/uL (4.8-10.8)
[2017-08-06] MEDS ORDERED: DPPI150 IM (18:41)
[2017-08-06] MEDS ORDERED: EFF/375 PO (18:41)
[2017-08-06 18:58] LABS: ALBUMIN 3.8 gm/dl (3.4-5.0); CALCIUM 8.6 mg/dl (8.5-10.1); CREATININE 0.68 mg/dl (0.60-1.20); POTASSIUM 3.6 mmol/L (3.5-5.1)
[2017-08-06 19:02] LABS: PHOSPHORUS 3.2 mg/dl (2.5-4.9)
[2017-08-06 19:05] LABS: BASO % 0.7 %; BASO ABS # 0.04 K/uL (0-0.2); EOS % 3.9 %; EOS ABS # 0.21 K/uL (0-0.5); IG# 0.01 K/uL (0.00-0.02); LYMPH % 28.4 %; LYMPH ABS # 1.54 K/uL (1.2-3.4); MONO % 10.7 %; MONO ABS # 0.58 K/uL (0.11-0.59); NEUT % 56.1 %; NEUT ABS # 3.04 K/uL (1.4-6.5)
[2017-08-06] MEDS ORDERED: ATV5X PO (19:23)
[2017-08-06] MEDS ORDERED: FERR1TAB62 PO (19:23)
[2017-08-06] MEDS ORDERED: AMIT100T2 PO (19:23)
[2017-08-06] MEDS ORDERED: CYNI1000 IM (19:26)
[2017-08-06] MEDS ORDERED: CHOLCAP5 PO (19:28)
[2017-08-06] MEDS ORDERED: CHOL1CAP57 PO (19:28)
[2017-08-06] MEDS ORDERED: RIZA10TA21 PO (19:30)
[2017-08-06] MEDS ORDERED: ALBINS/ NEB (19:33)
[2017-08-06] MEDS ORDERED: METHYLPREDNISOLONE 125 MG VIAL IV STA (19:51)
--- NOTE | 2017-08-06 19:54 | EMERGENCY ROOM VISIT NOTE ---
History Report prepared by Vic: Evon Paz Under the Supervision of: Dr. Olvin Miranda M.D. First contact with patient: 17:00 Chief Complaint: LEG PAIN,LEG INJURY Stated Complaint: MS FLARE, SEVERE PAIN IN LEGS AND FEET History of Present Illness The patient is a 27 year old female who presents to the Emergency Room with complaints of worsening leg pain starting 3-4 weeks ago. The patient was sent here after speaking with a nurse from Dr. Marc's office over concerns that she might have a blood clot and need IV steroids for her MS flare. She currently rates her leg pain as a 7/10 in severity. Her leg pain improves with squeezing her legs. She denies any fever, chills, cough, congestion, nausea, vomiting, diarrhea, dizziness, change in vision, or leg swelling. The patient had a blood clot in her right arm 2 years ago which was thought to be caused by an attempted port placement. She is no longer on a blood thinner. She started having an MS flare last night. Her neck has been feeling stiff and her shoulders are tender. She rates her MS pain as a 4/10 in severity. She had a stabbing pain in her head last night which lasted for 5-10 minutes. She has been eating and drinking well. She denies any recent hospitalizations or prolonged travel. She is not on oral control. She is on the Depo shot. Source of History: patient, parent Onset: 3-4 weeks ago Position: leg (bilateral) Symptom Intensity: 7/10 Timing: worsening Modifying Factors (Relieving): other (squeezing legs) Associated Symptoms: + headache (resolved), + neck pain, No fevers, No chills, No cough, No nausea, No vomiting, No diarrhea Note: Pt denies dizziness, change in vision, leg swelling. Review of Systems See HPI for pertinent positives and negatives. A total of ten systems were reviewed and were otherwise negative. Past Medical & Surgical Medical Problems: (1) Asthma (2) Bronchitis (3) gastric bypass (4) Influenza A (5) Multiple sclerosis (6) Pneumonia (7) Ulcer Surgical Problems: (1) S/P cholecystectomy Family History Diabetes mellitus FH: gallbladder disease FH: heart disease Hypertension Kidney disease Kidney stones Social History Smoking Status: Never Smoker Alcohol Use: occasionally Drug Use: none Marital Status: single Housing Status: lives with family Occupation Status: unemployed Current/Historical Medications Scheduled Amitriptyline Hcl (Elavil), 100 MG PO HS Cholecalciferol (Vitamin D3), 1,000 INTER.UNIT PO DAILY Cholecalciferol (Vitamin D3), 5,000 INTER.UNIT PO DAILY Cranberry (Vaccinium Macrocarp (Cranberry), 500 MG PO DAILY Cyanocobalamin (Cyanocobalamin), 1,000 MCG IM MONTHLY Dimethyl Fumarate (Tecfidera), 240 MG PO BID Ferrous Sulfate (Ferrous Sulfate), 325 MG PO BID Medroxyprogesterone Acetate (Medroxyprogesterone Aceta), 150 MG IM Q3MO Montelukast Sod (Montelukast Sodium), 10 MG PO HS Omeprazole (Prilosec), 40 MG PO BID Topiramate (Topamax), 50 MG PO BID Venlafaxine Hcl (Effexor), 37.5 MG PO BID Scheduled PRN Albuterol Sulf (Proventil 0.083% 2.5MG/3ML), 3 ML NEB Q4H PRN for Wheezing Albuterol Sulfate (Proair Respiclick), 2 PUFFS INH Q4H PRN for SOB/Wheeze/Prior to Exercise Hydroxyzine HCl (Hydroxyzine HCl), 10 MG PO HS PRN for Sleep Lorazepam (Lorazepam), 0.5 MG PO HS PRN for Anxiety and/or Sedation Rizatriptan Benzoate (Rizatriptan Benzoate), 10 MG PO UD PRN for Migraine Allergies Coded Allergies: Sulfa Antibiotics (Verified Allergy, Severe, HIVES, 10/10/16) Hydrocodone (Verified Allergy, Intermediate, HIVES, 10/10/16) Cephalosporins (Verified Allergy, Mild, 0, 10/10/16) Cephalexin (Verified Allergy, Unknown, ., 10/10/16) Methocarbamol (Verified Allergy, Unknown, UNKNOWN, 10/10/16) Clindamycin (Unverified Adverse Reaction, Unknown, HEARTBURN, 10/10/16) Physical Exam Vital Signs Date Time Temp Pulse Resp B/P (MAP) Pulse Ox O2 Delivery O2 Flow Rate FiO2 08/06/17 20:14 92 16 144/95 100 08/06/17 18:33 96 18 150/99 99 Room Air 08/06/17 17:43 92 08/06/17 15:55 36.4 102 17 139/91 100 Room Air Physical Exam GENERAL: Awake, alert, well-appearing, in no distress HENT: Normocephalic, atraumatic. Oropharynx unremarkable. EYES: Normal conjunctiva. Sclera non-icteric. NECK: Supple. No nuchal rigidity. FROM. No JVD. Mild paraspinal neck tenderness. RESPIRATORY: Clear to auscultation. CARDIAC: Regular rate, normal rhythm. Extremities warm and well perfused. Pulses equal. ABDOMEN: Soft, non-distended. No tenderness to palpation. No rebound or guarding. No masses. RECTAL: Deferred. MUSCULOSKELETAL: Chest examination reveals no tenderness. The back is symmetrical on inspection without obvious abnormality. There is no CVA tenderness to palpation. No joint edema. LOWER EXTREMITIES: Calves are equal size bilaterally. Improved pain with palpation in the legs. No edema. No discoloration. NEURO: Normal sensorium. No sensory or motor deficits noted. SKIN: No rash or jaundice noted. Medical Decision & Procedures ER Provider Diagnostic Interpretation: Radiology results as stated below per my review and radiologist interpretation: CHEST ONE VIEW PORTABLE CLINICAL HISTORY: Abdominal pain. COMPARISON STUDY: Chest radiograph October 10, 2016. FINDINGS: A left internal jugular Eusquw-o-Akch is in place. There is no pneumothorax or pleural effusion. There is no consolidation. Cardiomediastinal silhouette is stable. Lung volumes are slightly diminished. This is unchanged. IMPRESSION: No acute cardiopulmonary findings. Electronically signed by: Harman Marcus M.D. 08/06/2017 5:37 PM Dictated Date/Time: 08/06/2017 5:36 PM Laboratory Results 08/06/17 18:20 Red Blood Count 4.24, Mean Corpuscular Volume 94.6, Mean Corpuscular Hemoglobin 32.3, Mean Corpuscular Hemoglobin Concent 34.2, Mean Platelet Volume 10.4, Neutrophils (%) (Auto) 56.1, Lymphocytes (%) (Auto) 28.4, Monocytes (%) (Auto) 10.7, Eosinophils (%) (Auto) 3.9, Basophils (%) (Auto) 0.7, Neutrophils # (Auto ) 3.04, Lymphocytes # (Auto) 1.54, Monocytes # (Auto) 0.58, Eosinophils # (Auto ) 0.21, Basophils # (Auto) 0.04 08/06/17 18:20 Test 08/06/17 18:20 White Blood Count 5.42 K/uL (4.8-10.8) Red Blood Count 4.24 M/uL (4.2-5.4) Hemoglobin 13.7 g/dL (12.0-16.0) Hematocrit 40.1 % (37-47) Mean Corpuscular Volume 94.6 fL (80-100) Mean Corpuscular Hemoglobin 32.3 pg (25-34) Mean Corpuscular Hemoglobin Concent 34.2 g/dl (32-36) Platelet Count 233 K/uL (130-400) Mean Platelet Volume 10.4 fL (7.4-10.4) Neutrophils (%) (Auto) 56.1 % Lymphocytes (%) (Auto) 28.4 % Monocytes (%) (Auto) 10.7 % Eosinophils (%) (Auto) 3.9 % Basophils (%) (Auto) 0.7 % Neutrophils # (Auto) 3.04 K/uL (1.4-6.5) Lymphocytes # (Auto) 1.54 K/uL (1.2-3.4) Monocytes # (Auto) 0.58 K/uL (0.11-0.59) Eosinophils # (Auto) 0.21 K/uL (0-0.5) Basophils # (Auto) 0.04 K/uL (0-0.2) RDW Standard Deviation 50.3 fL (36.4-46.3) RDW Coefficient of Variation 14.7 % (11.5-14.5) Immature Granulocyte % (Auto) 0.2 % Immature Granulocyte # (Auto) 0.01 K/uL (0.00-0.02) Red Blood Cell Morphology Unremarkable D-Dimer < 190 ug/L FEU (0-500) Anion Gap 11.0 mmol/L (3-11) Est Creatinine Clear Calc Drug Dose 163.7 ml/min Estimated GFR () 138.0 Estimated GFR (Non- 119.0 BUN/Creatinine Ratio 17.6 (10-20) Calcium Level 8.6 mg/dl (8.5-10.1) Phosphorus Level 3.2 mg/dl (2.5-4.9) Magnesium Level 2.2 mg/dl (1.8-2.4) Total Bilirubin 0.6 mg/dl (0.2-1) Direct Bilirubin 0.2 mg/dl (0-0.2) Aspartate Amino Transf (AST/SGOT) 10 U/L (15-37) Alanine Aminotransferase (ALT/SGPT) 17 U/L (12-78) Alkaline Phosphatase 131 U/L (45-117) Total Creatine Kinase 56 U/L (26-192) Total Protein 7.0 gm/dl (6.4-8.2) Albumin 3.8 gm/dl (3.4-5.0) Lipase 60 U/L (73-393) Laboratory results reviewed by me Medications Administered Medications (Trade) Dose Ordered Sig/Joie Route Start Time Stop Time Status Last Admin Dose Admin Sodium Chloride 2,000 ml @ 999 mls/hr Q2H1M STAT IV 08/06/17 17:13 08/06/17 19:13 DC 08/06/17 18:26 999 MLS/HR Ketorolac Tromethamine (Toradol Inj) 15 mg NOW STAT IV 08/06/17 17:13 08/06/17 17:17 DC 08/06/17 18:26 15 MG Methylprednisolone Sodium Succinate (Solu-Medrol IV) 125 mg NOW STAT IV 08/06/17 19:51 08/06/17 19:52 DC 08/06/17 20:06 125 MG Heparin Sodium (Porcine) (Heparin 100 Unit/ml 5ml Flush) 5 ml STK-MED ONCE .ROUTE 08/06/17 20:10 08/06/17 20:11 DC 08/06/17 20:10 5 ML ED Course 1703: The patient was evaluated in room B9. A complete history and physical exam was performed. 1913: I reevaluated the patient. I updated her and her family on the results. 1927: I discussed the patient's case with Dr. Marc, [facility] neurology. We are in agreement with the plan. 1931: I reevaluated the patient. Discussed results and discharge instructions: They verbalized understanding and agreement. The patient is ready for discharge. Medical Decision I reviewed the patient's past medical history, medications, and the nursing notes as described above. Etiologies such as dehydration, electrolyte abnormalities, MS flare, DVT, as well as others were entertained. The patient is a 27-year-old woman with a past medical history of MS followed by Dr. Marc presents emergency department with worsening bilateral lower extremity pain for the past few weeks now with evolving shoulder and neck pain for the past couple of days which she says is consistent with her MS flare, she called the neurology office and was "told to go to the emergency department. On arrival, the patient is well-appearing, no acute distress, afebrile stable vital signs. Of note, on exam of her lower extremities she reports improvement with palpation and says the pain is more of an intermittent stinging. On arrival the patient is relatively well-appearing, afebrile stable vital signs. Labs are unremarkable including WBC and CPK within normal limits. D-dimer wnl suggesting DVT not likely taken in the setting of her symptoms that are more consistent with neuropathic pain. She feeling some improvement after IV fluid hydration. I discussed case with Dr. Marc, the patient's neurologist, who agrees that there is no need for further evaluation at this time; while unclear if the patient symptoms are related to her MS flare we can proceed with the patient's prescribed prednisone taper as previously prescribed. Patient will follow up with Dr. Marc later this week. I discussed the option for an IV dose of steroids here in the emergency department which the patient and her mother preferred. Findings and plan for follow-up reviewed with patient. Patient agreeable and d/c'd per discharge instructions. Medication Reconcilliation Current Medication List: was personally reviewed by me Blood Pressure Screening Patient's blood pressure: Elevated blood pressure Blood pressure disposition: Elevated BP felt to be situational Consults Time Called: 1925 Consulting Physician: Dr. Marc [facility] neurology Returned Call: 1927 I discussed the patient's case with him. We are in agreement with the plan. Impression Primary Impression: Muscle spasm of both lower legs Scribe Attestation The scribe's documentation has been prepared under my direction and personally reviewed by me in its entirety. I confirm that the note above accurately reflects all work, treatment, procedures, and medical decision making performed by me. Departure Information Dispostion Home / Self-Care Referrals Mendoza Daniels M.D. (PCP) Manolo Marc M.D. (MEDICINE) Patient Instructions ED Spasm Muscle, Multiple Sclerosis Dc, My [facility] Additional Instructions Please follow up with your primary care physician and neurologist, Dr. Naranjo, in the next week for re-evaluation. The cause of your symptoms are unclear at this time. Otherwise, your exam, chest xray, lab results did not show signs of an emergent condition at this time. Acetaminophen or ibuprofen for pain and fevers as needed. Continue with your prescribed prednisone taper. Drink plenty of fluids to ensure hydration. Return to the emergency department for worsening symptoms as described in the accompanying instructions.
[2017-08-06 20:14] VITALS: BP 144/95; PULSE 92; O2SAT 100
[2017-08-06] MEDS ORDERED: CRAN500C2 PO (21:00)
[2017-08-06] MEDS ORDERED: ALBU18002 INH (21:03)
== END 2017-08-06 20:15 | disposition home or self-care (01) ==
LOC: C.EDB 15:54
DX: M62.838 Other muscle spasm (principal); R03.0 Elevated blood-pressure reading, without diagnosis of hypertension; G35 Multiple sclerosis; J45.909 Unspecified asthma, uncomplicated; Z79.3 Long term (current) use of hormonal contraceptives; Z88.2 Allergy status to sulfonamides; Z88.6 Allergy status to analgesic agent; Z88.1 Allergy status to other antibiotic agents; Z83.3 Family history of diabetes mellitus; Z82.49 Family history of ischemic heart disease and other diseases of the circulatory system; Z84.1 Family history of disorders of kidney and ureter

== ENCOUNTER 2017-12-11 18:17 | Emergency (ER) | payer OTHER ==
[~2017-12-11] VITALS: Ht 170.2 cm; Wt 121.5 kg
[~2017-12-11 18:17] MED LIST changes: +DIME1CAP2 PO; +DPPI150 IM; -MEDR150I19 IM; +RIZA10TA21 PO; +SNG10 PO; -VENL75CA PO
[2017-12-11 18:20] VITALS: TEMP 36.8
[2017-12-11] MEDS ORDERED: ATR10 PO (18:32)
[2017-12-11] MEDS ORDERED: TPM/50 PO (18:32)
[2017-12-11] MEDS ORDERED: ONDANSETRON INJ 2 MG/ML 2 ML VIAL IV STA (18:41)
[2017-12-11] MEDS ORDERED: EFF/375 PO (18:41)
[2017-12-11] MEDS ORDERED: SODIUM CHLORIDE 0.9% 500ML 500 ML IV STA (18:41)
[2017-12-11] MEDS ORDERED: KETOROLAC TROMETHAMINE 30 MG/ML VIAL IV STA (18:41)
[2017-12-11] MEDS ORDERED: RIZA1TAB7 PO (18:46)
[2017-12-11] MEDS ORDERED: MEDR150I19 IM (18:48)
[2017-12-11 18:49] VITALS: Ht 170.2 cm; Wt 121.5 kg
[2017-12-11] MEDS ORDERED: OCRE300I IV (18:50)
[2017-12-11 19:16] VITALS: O2SAT 96
[2017-12-11] MEDS ORDERED: FERR1TAB62 PO (19:23)
[2017-12-11] MEDS ORDERED: AMIT100T2 PO (19:23)
[2017-12-11] MEDS ORDERED: ATV5X PO (19:23)
[2017-12-11 19:24] LABS: BASO % 1.1 %; BASO ABS # 0.07 K/uL (0-0.2); EOS % 7.2 %; EOS ABS # 0.47 K/uL (0-0.5); HEMATOCRIT 38.5 % (37-47); HEMOGLOBIN 13.3 g/dL (12.0-16.0); IG# 0.02 K/uL (0.00-0.02); LYMPH % 23.3 %; LYMPH ABS # 1.52 K/uL (1.2-3.4); MEAN CELL VOLUME 93.2 fL (80-100); MEAN CORPUSCULAR HEMOGLOBIN 32.2 pg (25-34); MEAN CORPUSCULAR HGB CONC 34.5 g/dl (32-36); MEAN PLATELET VOLUME 10.1 fL (7.4-10.4); MONO ABS # 0.78 K/uL (0.11-0.59); NEUT % 56.1 %; NEUT ABS # 3.65 K/uL (1.4-6.5); PLATELET COUNT 255 K/uL (130-400); RED CELL DISTRIBUTION WIDTH CV 13.6 % (11.5-14.5); RED CELL DISTRIBUTION WIDTH SD 46.6 fL (36.4-46.3); WHITE BLOOD COUNT 6.51 K/uL (4.8-10.8)
[2017-12-11] MEDS ORDERED: CYNI1000 IM (19:26)
[2017-12-11] MEDS ORDERED: CHOLCAP5 PO (19:28)
[2017-12-11] MEDS ORDERED: CHOL1CAP57 PO (19:28)
[2017-12-11] MEDS ORDERED: ALBINS/ NEB (19:33)
[2017-12-11] MEDS ORDERED: HYDROmorphone INJ 0.5 MG/0.5 ML SYR IV STA (19:36)
[2017-12-11 19:51] LABS: ALBUMIN 3.6 gm/dl (3.4-5.0); CALCIUM 7.2 mg/dl (8.5-10.1); CREATININE 0.68 mg/dl (0.60-1.20); POTASSIUM 4.3 mmol/L (3.5-5.1); TOTAL PROTEIN 7.1 gm/dl (6.4-8.2)
[2017-12-11] MEDS ORDERED: PROMETHAZINE HCL INJ 25 MG in SODIUM CHLORIDE 0.9% 50ML 50 ML IV STA (20:17)
[2017-12-11] MEDS ORDERED: NURSING VERBAL MED ORDER ONE (20:45)
[2017-12-11] MEDS ORDERED: ONDANSETRON INJ 2 MG/ML 2 ML VIAL IV ONE (20:45)
[2017-12-11] MEDS ORDERED: ONDANSETRON HOME PACK 4MG OD TAB PO ONE (21:00)
[2017-12-11] MEDS ORDERED: CRAN500C2 PO (21:00)
[2017-12-11] MEDS ORDERED: ALBU18002 INH (21:03)
[2017-12-11 21:45] VITALS: BP 121/74; PULSE 119; O2SAT 95
--- NOTE | 2017-12-12 00:40 | EMERGENCY ROOM VISIT NOTE ---
History Report prepared by Vic: Coral Marcos Under the Supervision of: Dr. Manolo Navarro M.D. First contact with patient: 18:21 Chief Complaint: PAIN (GENERALIZED) Stated Complaint: NECK PAIN,BACK PAIN,LEG PAIN,NUMBNESS,MS FLARE UP History of Present Illness The patient is a 27 year old female who presents to the Emergency Room with complaints of constant neck pain beginning 5 days ago. She reports her neck is tender to touch, which is typical of her MS flares. She notes back pain, nausea , and eye itchiness. The patient reports her chronic L leg numbness has increased, beginning 4 days ago. She states her current pain is an 8/10 in severity. Pt denies LOC, headache, fevers, diaphoresis, visual changes, chest pain, breathing difficulties, nausea, vomiting, abdominal pain, back pain, melena, hematochezia, urinary symptoms, numbness, weakness, lymphadenopathy, rash, or other complaints. The patient states she had similar symptoms with a flare in August, which resolved following steroid treatment. She notes her current symptoms are consistent with a moderate MS flare. The patient notes she had an MRI done at [facility] 3 months ago, which indicated increased MS lesions. She states she followed up with her neurologist, Dr. Spears of [facility], 2 months ago, and switched medications 1 month ago. The patient notes she now takes Ocrevus and has stopped taking Tecfidera. Source of History: patient Onset: 5 days ago Position: neck Timing: constant Associated Symptoms: + nausea, + back pain, + numbness (L leg) Note: Associated symptom: neck tender to tough, eye itchiness Review of Systems See HPI for pertinent positives and negatives. A total of ten systems were reviewed and were otherwise negative. Past Medical & Surgical Medical Problems: (1) Asthma (2) Bronchitis (3) gastric bypass (4) Influenza A (5) Multiple sclerosis (6) Pneumonia (7) Ulcer Surgical Problems: (1) S/P cholecystectomy Family History Diabetes mellitus FH: gallbladder disease FH: heart disease Hypertension Kidney disease Kidney stones Social History Smoking Status: Never Smoker Alcohol Use: occasionally Drug Use: none Marital Status: single Housing Status: lives with family Occupation Status: unemployed Current/Historical Medications Scheduled Amitriptyline Hcl (Elavil), 100 MG PO HS Cholecalciferol (Vitamin D3), 1,000 INTER.UNIT PO DAILY Cholecalciferol (Vitamin D3), 5,000 INTER.UNIT PO DAILY Cranberry (Vaccinium Macrocarp (Cranberry), 500 MG PO DAILY Cyanocobalamin (Cyanocobalamin), 1,000 MCG IM MONTHLY Ferrous Sulfate (Ferrous Sulfate), 325 MG PO BID Medroxyprogesterone Acetate (C (Medroxyprogesterone Aceta), 150 MG IM Q12 WEEKS Montelukast Sod (Montelukast Sodium), 10 MG PO HS Ocrelizumab (Ocrevus), 1 DOSE IV Q6 MONTHS Omeprazole (Prilosec), 40 MG PO BID Topiramate (Topamax), 50 MG PO BID Venlafaxine Hcl (Effexor), 37.5 MG PO BID Scheduled PRN Albuterol Sulf (Proventil 0.083% 2.5MG/3ML), 3 ML NEB Q4H PRN for Wheezing Albuterol Sulfate (Proair Respiclick), 2 PUFFS INH Q4H PRN for SOB/Wheeze/Prior to Exercise Hydroxyzine HCl (Hydroxyzine HCl), 10 MG PO HS PRN for Sleep Lorazepam (Lorazepam), 0.5 MG PO HS PRN for Anxiety and/or Sedation Rizatriptan Benzoate (Rizatriptan Benzoate), 10 MG PO UD PRN for Headache Allergies Coded Allergies: Sulfa Antibiotics (Verified Allergy, Severe, HIVES, 10/10/16) Hydrocodone (Verified Allergy, Intermediate, HIVES, 10/10/16) Cephalosporins (Verified Allergy, Mild, 0, 10/10/16) Cephalexin (Verified Allergy, Unknown, ., 10/10/16) Methocarbamol (Verified Allergy, Unknown, UNKNOWN, 10/10/16) Clindamycin (Unverified Adverse Reaction, Unknown, HEARTBURN, 10/10/16) Physical Exam Vital Signs Date Time Temp Pulse Resp B/P (MAP) Pulse Ox O2 Delivery O2 Flow Rate FiO2 12/11/17 21:45 119 16 121/74 95 12/11/17 21:00 109 18 127/84 95 Room Air 12/11/17 20:01 109/60 12/11/17 19:47 118 14 96 12/11/17 19:41 108 12/11/17 19:31 125/69 12/11/17 19:17 102 15 148/92 96 12/11/17 19:16 96 Room Air 12/11/17 18:20 36.8 110 20 143/90 98 Room Air Physical Exam GENERAL: Awake, alert, uncomfortable appearing, in no distress HENT: Normocephalic, atraumatic. Oropharynx unremarkable. EYES: Normal conjunctiva. Sclera non-icteric. NECK: Supple. No nuchal rigidity. FROM. No masses. RESPIRATORY: Clear to auscultation. No wheezes. No rales. Normal respiratory effort. CARDIAC: Normal rate. Normal rhythm. No murmurs. No rubs. Extremities warm and well perfused. Pulses equal. No JVD. GI: Soft, non-distended. No tenderness to palpation. No rebound or guarding. No masses. RECTAL: Deferred. MUSCULOSKELETAL: Atraumatic. Chest examination reveals no tenderness. The back is symmetrical on inspection without obvious abnormality. There is no CVA tenderness to palpation. No joint edema. LOWER EXTREMITIES: Calves are equal size bilaterally and non-tender. No edema. No discoloration. NEURO: Normal sensorium. Subjective mild numbness on L side of body, otherwise no sensory or motor deficits noted. SKIN: No rash or jaundice noted. Medical Decision & Procedures ER Provider Diagnostic Interpretation: Radiology results as stated below per my review and radiologist interpretation: ABD/PELVIS NO IV OR ORAL CONT CT DOSE: 349.53 mGy.cm HISTORY: Hernia incarcerated umbilical hernia TECHNIQUE: Multiaxial CT images of the abdomen and pelvis were performed without contrast. A dose lowering technique was utilized adhering to the principles of ALARA. COMPARISON STUDY: None. FINDINGS: Lung bases are clear. Liver spleen and pancreas are unremarkable. Kidneys negative for calcification or hydronephrosis. The bowel pattern is nonobstructive. There is a small periumbilical fat-containing hernia. This measures 8 mm in maximum transaxial dimension. There is no evidence of bowel containment. There are no secondary obstructive characteristics. No evidence for adenopathy within the abdominal pelvic or inguinal region. Bladder is midline. IMPRESSION: 1. 8 mm periumbilical fat-containing hernia. 2. No evidence of bowel containment or obstruction. 3. Study is otherwise unremarkable. The above report was generated using voice recognition software. It may contain grammatical, syntax or spelling errors. Electronically signed by: Fabio Couch M.D. 12/11/2017 8:01 PM Dictated Date/Time: 12/11/2017 7:58 PM Laboratory Results 12/11/17 19:11 Red Blood Count 4.13, Mean Corpuscular Volume 93.2, Mean Corpuscular Hemoglobin 32.2, Mean Corpuscular Hemoglobin Concent 34.5, Mean Platelet Volume 10.1, Neutrophils (%) (Auto) 56.1, Lymphocytes (%) (Auto) 23.3, Monocytes (%) (Auto) 12.0, Eosinophils (%) (Auto) 7.2, Basophils (%) (Auto) 1.1, Neutrophils # (Auto ) 3.65, Lymphocytes # (Auto) 1.52, Monocytes # (Auto) 0.78, Eosinophils # (Auto ) 0.47, Basophils # (Auto) 0.07 12/11/17 19:11 Test 12/11/17 18:44 12/11/17 19:11 Urine Color YELLOW Urine Appearance CLEAR (CLEAR) Urine pH 6.5 (4.5-7.5) Urine Specific [place] 1.004 (1.000-1.030) Urine Protein NEG (NEG) Urine Glucose (UA) NEG (NEG) Urine Ketones NEG (NEG) Urine Occult Blood NEG (NEG) Urine Nitrite NEG (NEG) Urine Bilirubin NEG (NEG) Urine Urobilinogen NEG (NEG) Urine Leukocyte Esterase NEG (NEG) White Blood Count 6.51 K/uL (4.8-10.8) Red Blood Count 4.13 M/uL (4.2-5.4) Hemoglobin 13.3 g/dL (12.0-16.0) Hematocrit 38.5 % (37-47) Mean Corpuscular Volume 93.2 fL (80-100) Mean Corpuscular Hemoglobin 32.2 pg (25-34) Mean Corpuscular Hemoglobin Concent 34.5 g/dl (32-36) Platelet Count 255 K/uL (130-400) Mean Platelet Volume 10.1 fL (7.4-10.4) Neutrophils (%) (Auto) 56.1 % Lymphocytes (%) (Auto) 23.3 % Monocytes (%) (Auto) 12.0 % Eosinophils (%) (Auto) 7.2 % Basophils (%) (Auto) 1.1 % Neutrophils # (Auto) 3.65 K/uL (1.4-6.5) Lymphocytes # (Auto) 1.52 K/uL (1.2-3.4) Monocytes # (Auto) 0.78 K/uL (0.11-0.59) Eosinophils # (Auto) 0.47 K/uL (0-0.5) Basophils # (Auto) 0.07 K/uL (0-0.2) RDW Standard Deviation 46.6 fL (36.4-46.3) RDW Coefficient of Variation 13.6 % (11.5-14.5) Immature Granulocyte % (Auto) 0.3 % Immature Granulocyte # (Auto) 0.02 K/uL (0.00-0.02) Erythrocyte Sedimentation Rate 8 mm/hr (0-21) Anion Gap 8.0 mmol/L (3-11) Est Creatinine Clear Calc Drug Dose 166.4 ml/min Estimated GFR () 138.0 Estimated GFR (Non- 119.0 BUN/Creatinine Ratio 12.8 (10-20) Calcium Level 7.2 mg/dl (8.5-10.1) Magnesium Level 2.0 mg/dl (1.8-2.4) Total Bilirubin 0.4 mg/dl (0.2-1) Aspartate Amino Transf (AST/SGOT) 13 U/L (15-37) Alanine Aminotransferase (ALT/SGPT) 18 U/L (12-78) Alkaline Phosphatase 127 U/L (45-117) Total Creatine Kinase 88 U/L (26-192) C-Reactive Protein 1.30 mg/dl (0-0.29) Total Protein 7.1 gm/dl (6.4-8.2) Albumin 3.6 gm/dl (3.4-5.0) Globulin 3.5 gm/dl (2.5-4.0) Albumin/Globulin Ratio 1.0 (0.9-2) Thyroid Stimulating Hormone (TSH) 1.320 uIu/ml (0.300-4.500) Laboratory results reviewed by me Medications Administered Medications (Trade) Dose Ordered Sig/Joie Route Start Time Stop Time Status Last Admin Dose Admin Ondansetron HCl (Zofran Inj) 4 mg NOW STAT IV 12/11/17 18:41 12/11/17 18:43 DC 12/11/17 19:14 4 MG Sodium Chloride 500 ml @ 999 mls/hr Q31M STAT IV 12/11/17 18:41 12/11/17 19:11 DC 12/11/17 19:15 999 MLS/HR Ketorolac Tromethamine (Toradol Inj) 15 mg NOW STAT IV 12/11/17 18:41 12/11/17 18:43 DC 12/11/17 19:15 15 MG Hydromorphone HCl (Dilaudid Inj) 0.5 mg NOW STAT IV 12/11/17 19:36 12/11/17 19:37 DC 12/11/17 19:45 0.5 MG Miscellaneous Information (Nursing Verbal Med Order) 1 ea ONE ONCE N/A 12/11/17 20:45 12/11/17 20:45 DC 12/11/17 20:40 1 EA Ondansetron HCl (ZOFRAN ODT 4MG Home Pack) 1 homepack UD ONCE PO 12/11/17 21:00 12/11/17 21:01 DC 12/11/17 21:35 1 HOMEPACK Heparin Sodium (Porcine) (Heparin 100 Unit/ml 5ml Flush) 5 ml STK-MED ONCE .ROUTE 12/11/17 21:34 12/11/17 21:35 DC 12/11/17 21:36 5 ML ED Course 1821: The patient was evaluated in room B10. A complete history and physical exam was performed. 1: Ordered Toradol Inj 15 mg IV, Sodium Chloride 500 ml @ 999 mls/hr IV, Zofran Inj 4 mg IV. 1: Discussed the patient's case with Dr. Dai, neurologist. She recommended treating the patient's symptoms primarily. She states she is comfortable treating with steroids if the patient wants them, and can follow up in the office tomorrow. 6: Ordered Dilaudid Inj 0.5 mg IV. 2016: Ordered Promethazine HCl 25 mg/Sodium Chloride 51 ml @ 204 mls/hr IV. 2033: Upon reevaluation, the patient is feeling better. She elected to hold off on steroids and agrees to call neurology tomorrow. 2044: Ordered Zofran Inj 4 mg IV. 2099: Ordered Ondansetron HCl 1 homepack PO. 2103: I reevaluated the patient. She did well with an ambulatory trial. The patient notes some mild intermittent dizziness and would like some medicine to go home with. Discussed results and discharge instructions: she verbalized understanding and agreement. She will follow up with ENT and neurology. 2126: The patient is ready for discharge. Medical Decision Prior records/ancillary studies reviewed and summarized above. Nursing notes reviewed and agree them. Additional history obtained from family.. The patient's history was concerning for history of MS, neck pain, myalgias. Differential diagnosis: Etiologies such as MS flare, neurologic, muscular strain, metabolic, infection, hypo/hyperglycemia, electrolyte abnormalities, cardiac sources, intracerebral event, toxicologic, fibromyalgia, osteomyelitis, meningitis, as well as others were entertained. Physical examination: As above. No meningeal findings. Clinically the patient looks well. Afebrile. ER treatment provided: IV port accessed. IV normal saline IV Zofran IV Toradol On reassessment the patient was still having the pain in her right neck musculature. She had some minor discomfort in her legs. IV Dilaudid 0.5 mg IV Zofran Phenergan ordered but was not administered On reassessment the patient felt much better. Diagnostics interpretation by me: The labs revealed an unremarkable CBC and chemistry panel. Minimal elevation of CRP. Imaging studies: Deferred Consultation: A consultation was placed with Dr. Jennifer Chairez neurology. The case was discussed. She committed symptomatic treatment primarily as the patient does not have any significant weakness. She felt that steroids were secondary option. I discussed this with the patient and her mother. The patient's mother notes that the patient has had multiple doses of steroids and her neurologist in [place] discussed trying to minimize the use because of her previous numerous steroid treatments. I gave the patient the option and utilizing shared decision making the patient and I will have her follow-up with her neurologist tomorrow. She has pain medication at home and did not request any additional. She was given a Zofran home pack in case if she has any nausea. The patient feels very comfortable with this plan. By the evaluation outlined above other emergent etiologies such as those listed in the differential, as well as others, were deemed relatively unlikely. The patient was educated about the findings as listed above. All questions were answered and the patient was pleased with the treatment. Return instructions were outlined and the patient was discharged in stable condition. The patient was referred to her neurologist for follow-up for a recheck of the current condition. Medication Reconcilliation Current Medication List: was personally reviewed by me Blood Pressure Screening Patient's blood pressure: Normal blood pressure Blood pressure disposition: Did not require urgent referral Consults Time Called: 1841 Consulting Physician: Dr. Chairez, neurologist Returned Call: [phone] Discussed the patient's case with Dr. Chairez, neurologist. She recommended treating the patient's symptoms primarily. She states she is comfortable treating with steroids if the patient wants them, and can follow up in the office tomorrow. Impression Primary Impression: Neck pain Additional Impressions: Numbness History of multiple sclerosis Scribe Attestation The scribe's documentation has been prepared under my direction and personally reviewed by me in its entirety. I confirm that the note above accurately reflects all work, treatment, procedures, and medical decision making performed by me. Departure Information Dispostion Home / Self-Care Referrals Mendoza Daniels M.D. (PCP) Forms HOME CARE DOCUMENTATION FORM, IMPORTANT VISIT INFORMATION, WORK / SCHOOL INSTRUCTIONS Patient Instructions My [facility] Additional Instructions Continue current medications. Zofran 4 mg oral dissolving tablets: take one tablet and allow it to melt in your mouth every 4 hours as needed for nausea. Warm compresses for 20 minutes at a time four times daily for 2-3 days. Follow up with your neurologist tomorrow to discuss additional outpatient treatment and possible IV steroids. Return to the ER for worsening neck pain, weakness, headache, passing out, difficulty breathing, fevers, numbness, tingling, worsening of your condition, or as needed. Problem Qualifiers
== END 2017-12-11 21:48 | disposition home or self-care (01) ==
LOC: C.EDB 18:18
DX: M54.2 Cervicalgia (principal); R20.0 Anesthesia of skin; G35 Multiple sclerosis; J45.909 Unspecified asthma, uncomplicated; Z79.899 Other long term (current) drug therapy; Z88.2 Allergy status to sulfonamides; Z88.6 Allergy status to analgesic agent; Z88.1 Allergy status to other antibiotic agents; Z88.8 Allergy status to other drugs, medicaments and biological substances

== ENCOUNTER 2018-12-26 17:08 | Inpatient (IN) ==
--- NOTE | 2018-12-26 18:16 | CT Scan Report ---
CT OF THE HEAD WITHOUT CONTRAST CLINICAL HISTORY: Stroke evaluation. Right-sided numbness. Right-sided facial droop. COMPARISON STUDY: Head CT June 03, 2009. CT DOSE: 537.48 mGy.cm TECHNIQUE: Helical axial images of the head were obtained without IV contrast. Automated exposure con trol was utilized for the study. A dose lowering technique was utilized adhering to the principles o f ALARA. FINDINGS: No acute intracranial hemorrhage, midline shift or mass effect is present. The ventricular system is unremarkable. The basilar cisterns are patent. No extra-axial collections are present. Ther e are no findings to suggest acute dural sinus thrombosis or acute territorial infarct. No significan t calvarial abnormalities are present. Sinuses are partially imaged. Air-fluid levels within the bila teral maxillary sinuses and ethmoid sinuses are noted. IMPRESSION: 1. No acute intracranial findings. 2. Air-fluid levels within the bilateral maxillary and ethmoid sinuses. Electronically signed by: Harman Marcus M.D. 12/26/2018 6:15 PM
[2018-12-26 18:33] LABS: Basophils # (auto) 0.01 K/uL (0-0.2); Basophils % (auto) 0.1 %; Hematocrit (blood only) 39.1 % (37-47); Hemoglobin 13.2 g/dL (12.0-16.0); Immature Granulocytes # (auto) 0.01 K/uL (0.00-0.02); Immature Granulocytes % (auto) 0.1 %; Lymphocytes % (auto) 3.6 %; Mean Corpuscular Hemoglobin 32.6 pg (25-34); Mean Corpuscular Hgb Conc 33.8 g/dL (32-36); Mean Corpuscular Volume 96.5 fL (80-100); Mean Platelet Volume 10.6 fL (7.4-10.4); Monocytes # (auto) 0.17 K/uL (0.11-0.59); Monocytes % (auto) 2.1 %; Neutrophils # (auto) 7.76 K/uL (1.4-6.5); Neutrophils % (auto) 94.1 %; Platelet Count 247 K/uL (130-400); RDW Coefficient of Variation 13.8 % (11.5-14.5); RDW Standard Deviation 49.1 fL (36.4-46.3); Red Blood Count 4.05 M/uL (4.2-5.4); White Blood Count 8.25 K/uL (4.8-10.8)
[2018-12-26 18:54] LABS: INR 1.1 (0.9-1.1); Partial Thromboplastin Ratio 2.7; Prothrombin Time 10.9 Seconds (9.0-12.0)
[2018-12-26 18:56] LABS: Alanine Aminotransferase 20 U/L (12-78); Albumin Level 3.6 gm/dl (3.4-5.0); Aspartate Aminotransferase 13 U/L (15-37); BUN Creatinine Ratio 8.6 (10-20); Blood Urea Nitrogen 9 mg/dl (7-18); Calcium 8.2 mg/dl (8.5-10.1); Carbon Dioxide 20 mmol/L (21-32); Chloride 110 mmol/L (98-107); Creatinine Clr Calc Pharmacy 108.4 ml/min; Est GFR (African American) 85.1; Est GFR (Non-African American) 73.4; Glucose 126 mg/dl (70-99); Magnesium 2.3 mg/dl (1.8-2.4); Potassium 3.7 mmol/L (3.5-5.1); Sodium 140 mmol/L (136-145)
[2018-12-26 19:00] LABS: Albumin Globulin Ratio 1.2 (0.9-2); Alkaline Phosphatase 126 U/L (45-117); Bilirubin,Total 0.5 mg/dl (0.2-1); Globulin 3.1 gm/dl (2.5-4.0); Total Protein 6.7 gm/dl (6.4-8.2); Troponin I < 0.015 ng/ml (0-0.045)
[2018-12-26 19:01] LABS: Partial Thromboplastin Time 73.5 Seconds (21.0-31.0)
[2018-12-26] MEDS ORDERED: ONDANSETRON INJ 2 MG/ML 2 ML VIAL IV STA (20:07)
[2018-12-26] MEDS: HYDROmorphone INJ 0.5 MG/0.5 ML SYR IV PRN ×2 (20:13→22:47)
--- NOTE | 2018-12-26 21:00 | Ultrasound Report ---
US venous doppler UE RT CLINICAL HISTORY: Right upper extremity numbness status post surgery. COMPARISON STUDY: Right upper extremity venous Doppler April 15, 2015. FINDINGS: The right internal jugular, subclavian, axillary, brachial, radial, ulnar, cephalic and bas ilic veins are patent. No deep venous thrombus within the right upper extremity is identified. IMPRESSION: No deep venous thrombus within the right upper extremity. Electronically signed by: Harman Marcus M.D. 12/26/2018 8:59 PM
--- NOTE | 2018-12-26 21:42 | Magnetic Resonance Report ---
MR venography head wo con CLINICAL HISTORY: right arm numbness, r facial droop, hx of dvt MS COMPARISON STUDY: Head CT performed earlier today. TECHNIQUE: Utilizing a 1.5 Heidi magnet and dedicated coil, MR venography was obtained utilizing time -of-flight sequences. FINDINGS: The major dural sinuses are patent. The left transverse sinus is diminutive. This is likely congenital. The superior sagittal sinus is patent. The straight sinus is patent. The right transvers e and sigmoid sinuses are patent. IMPRESSION: No evidence of dural sinus thrombosis. Electronically signed by: Harman Marcus M.D. 12/26/2018 9:40 PM
--- NOTE | 2018-12-26 21:55 | Magnetic Resonance Report ---
MRA OF THE INTRACRANIAL CIRCULATION WITHOUT CONTRAST CLINICAL HISTORY: right arm numbness, r facial droop, hx of dvt MS COMPARISON STUDY: Head CT performed earlier today and head CT June 03, 2009. TECHNIQUE: Utilizing a 1.5 Heidi magnet and 3-D [id number] technique, unenhanced MRA of the intra cranial circulation was obtained. FINDINGS: Please note that the MRI of the brain will be reported separately. The bilateral M1, M2, A1 and A2 segments are patent. Posterior circulation is intact. There is no intracranial aneurysm or ab rupt vessel cut off. IMPRESSION: Normal MRA of the head. Electronically signed by: Harman Marcus M.D. 12/26/2018 9:54 PM
[2018-12-26] MEDS ORDERED: GADOBUTROL 65ML VIAL IV PRN (22:21)
--- NOTE | 2018-12-26 22:39 | Magnetic Resonance Report ---
MRI OF THE BRAIN WITHOUT AND WITH IV CONTRAST CLINICAL HISTORY: right arm numbness, r facial droop, hx of dvt MS COMPARISON STUDY: Head CT June 03, 2009 and December 26, 2018. TECHNIQUE: Utilizing a 1.5 Heidi magnet and dedicated coil, multiplanar, multiecho imaging of the br ain was performed pre and postcontrast administration. IV administration of 12 mL of Gadavist contra st was uneventful. Thin cut FLAIR imaging was performed. FINDINGS: There no foci of restricted diffusion to suggest acute infarct. No acute intracranial hemor rhage, midline shift or mass effect is present. Brain volume is normal. Ventricular system is normal. The basilar cisterns are patent. There are no extra-axial collections. Flow-voids for the major intr acranial vessels are present. Extensive subcortical and periventricular white matter T2 hyperintense foci are noted. No parenchymal enhancement is noted. There is no intracranial mass. There are air-flu id levels with suspected hemorrhage within the bilateral maxillary and ethmoid sinuses. Foci of sign al abnormality within the cervical cord are better depicted on the MRI of the cervical spine. IMPRESSION: 1. No acute intracranial findings. 2. Extensive white matter T2 hyperintense foci consistent with provided history of multiple sclerosis . No evidence for active demyelination. 3. Air-fluid levels within the bilateral maxillary and ethmoid sinuses. Electronically signed by: Harman Marcus M.D. 12/26/2018 10:38 PM
--- NOTE | 2018-12-26 22:44 | Magnetic Resonance Report ---
MRI OF THE CERVICAL SPINE WITH AND WITHOUT CONTRAST CLINICAL HISTORY: right arm numbness, r facial droop, hx of dvt MS COMPARISON: Cervical spine radiographs October 29, 2018. CTA of the neck December 18, 2015. TECHNIQUE: Utilizing a 1.5 Heidi magnet and dedicated coil, multiplanar, multiecho imaging of the ce rvical spine was performed before and after intravenous administration of 12 of Gadavist. FINDINGS: Alignment of the cervical spine is anatomic. Vertebral body heights are maintained. No intracanalicul ar mass or fluid collection is present. Paravertebral soft tissues are unremarkable. A T1 and T2 hype rintense lesion within the C6 vertebral body represents a hemangioma. Extensive increased T2 signal i s noted throughout the cervical cord and visualized portions of the thoracic cord. The T2 hyperintens ity is confluent and therefore measurements are difficult to obtain. No cord enhancement is identifie d to suggest active demyelination. C2-C3: The central canal and neural foramen are patent. C3-C4: The central canal and neural foramen are patent. C4-C5: The central canal and neural foramen are patent. C5-C6: The central canal and neural foramen are patent. C6-C7: The central canal and neural foramen are patent. C7-T1: The central canal and neural foramen are patent. IMPRESSION: 1. Extensive signal abnormality within the cervical cord and visualized portions of the thoracic cord consistent with the history of multiple sclerosis. No evidence for active demyelination. If previous study becomes available, comparison could be made. 2. Patent central canal and neural foramen. No disc herniations. Electronically signed by: Harman Marcus M.D. 12/26/2018 10:43 PM
--- NOTE | 2018-12-26 22:53 | Magnetic Resonance Report ---
MR angio neck wo/w con CLINICAL HISTORY: right arm numbness, r facial droop, hx of dvt MS COMPARISON STUDY: CTA of the neck December 18, 2015. TECHNIQUE: Unenhanced and contrast-enhanced MRA of the neck was performed. Intravenous injection of 1 2 cc of Gadavist was uneventful. FINDINGS: The bilateral common carotid, cervical internal carotid and vertebral arteries are patent. There is no stenosis. There is no evidence for dissection by MRI. The proximal portion of the right v ertebral artery is suboptimally assessed on this exam. IMPRESSION: 1. Unremarkable MRA of the neck. 2. Suboptimal evaluation of the proximal right vertebral artery due to artifact. Electronically signed by: Harman Marcus M.D. 12/26/2018 10:51 PM
--- NOTE | 2018-12-26 23:44 | Emergency Department Note ---
Entered by Maddison Garcia acting as a scribe for ED Provider Note CHIEF COMPLAINT: Right arm numbness HISTORY OF PRESENT ILLNESS: The patient is a 28 year old female who presents to the Emergency Room with complaints of worsening right arm pain that began at about 1500, about 3 hours prior to arrival. She states that she had sinus surgery for a deviated septum today that ended just before 1500 and when she began to get dressed after surgery she had some tingling in her right fingers and hand. The patient states that this eventually went up her whole right arm. She states that she was having difficulty grabbing and holding things. The patient's mother reports some right- sided facial droop. The patient states that her symptoms are similar to a prior right arm DVT that occurred several years ago. The patient states that she is not on blood thinners currently. Pt denies LOC, headache, fevers, chills, diaphoresis, visual changes, neck pain, chest pain, breathing difficulties, nausea, vomiting, abdominal pain, back pain, melena, hematochezia, urinary symptoms, weakness, lymphadenopathy, rash, or other complaints. REVIEW OF SYSTEMS: See HPI for pertinent positives and negatives. A total of ten systems were reviewed and were otherwise negative. PMHx/PSHx: Right upper extremity DVT Gastric bypass Cholecystectomy Multiple sclerosis Asthma SOCIAL HISTORY: Patient lives at home. PHYSICAL EXAM: GENERAL: Awake, alert, well-appearing, in no distress HENT: Normocephalic, atraumatic. Right facial droop. Blood in both nares, not actively hemorrhaging. Oropharynx unremarkable. EYES: PERRL. Normal conjunctiva. Sclera non-icteric. NECK: Inspection normal. Non-tender. Supple. No nuchal rigidity. FROM. No masses. RESPIRATORY: Clear to auscultation. No wheezes. No rales. Normal respiratory effort. CARDIAC: Normal rate. Normal rhythm. No murmurs. No rubs. Extremities warm and well perfused. Pulses equal. No JVD. GI: Soft, non-distended. No tenderness to palpation. No rebound or guarding. No masses. RECTAL: Deferred. MUSCULOSKELETAL: Atraumatic. Subjective tingling in right arm. Chest examination reveals no tenderness. The back is symmetrical on inspection without obvious abnormality. There is no CVA tenderness to palpation. No joint edema. LOWER EXTREMITIES: Calves are equal size bilaterally and non-tender. No edema. No discoloration. NEURO: Normal sensorium. No sensory or motor deficits noted. SKIN: No rash or jaundice noted. EMERGENCY DEPARTMENT COURSE: 1745: Past medical records reviewed. The patient was evaluated in room A12A, and a complete history and physical examination were performed. 1812: I discussed the case with Dr. Robins Neurology who states that he will evaluate the patient via Telestroke. 1813: I discussed the case with Dr. Marcus-Radiology who states that the patient's CT shows no acute intracranial findings. He states that there is fluid in the patient's sinuses. 1911: I discussed the case with Dr. Courtney Stone Neurology who states that the patient will need to be further evaluated and have a large workup incluing MRI of head, MRA of head and neck, MRI of brain with and without contrast, and MRI of cervical spine with and without contrast. 1949: Upon reevaluation the patient is stating she has pain from her sinus surgery and will be getting pain medication. The patient's mother states that she can take Dilaudid without complications. I will talk to the [facility] team about the patient. 2004: [facility] for further evaluation. MEDICAL DECISION MAKING: A12A Prior records/ancillary studies reviewed. Nursing notes reviewed and agree them. Additional history obtained from patient's mother. The patient's history was concerning for right arm numbness Differential diagnosis: Etiologies such as CVA, TIA, DVT, MS flare, metabolic, infection, hypo/hyperglycemia, electrolyte abnormalities, cardiac sources, intracerebral event, toxicologic, neurologic, as well as others were entertained. Physical examination: As above. Right facial droop noted. Cranial nerves otherwise intact. There is no drift. Normal [id number]. ER treatment provided: Stroke alert initiated. IV Lock Normal saline hydration On reassessment the patient felt better. Diagnostics interpretation by me: ECG: Normal. The labs revealed an unremarkable CBC and chemistry panel. Imaging studies: CT scan of the head was performed and was negative. Ultrasound imaging of the right arm was negative for DVT. Consultation: A stroke alert consult was placed with Dr. Egan at [facility]. Case was discussed. He did evaluate the patient via tele-stroke. He recommended against TPA given the symptoms and recent surgery. He did raise concerns about possible MS issues, venous sinus thrombosis, as well as ischemia. He recommended an MRI with contrast of the brain and cervical spine. Also MRA of the head and neck. He also rectum MRV of the head. These tests were ordered. A consultation was placed with the [facility] hospitalist. The case was discussed and diagnostics were reviewed. The patient was evaluated in the ER for further treatment. IMPRESSION: Facial droop History of multiple sclerosis Right arm numbness History of deep venous thrombosis PLAN: Admission. The scribe's documentation has been prepared under my direction and personally reviewed by me in its entirety. I confirm that the note above accurately reflects all work, treatment, procedures, and medical decision making performed by me. Impression & Plan Facial droop, History of multiple sclerosis, Right arm numbness, History of deep venous thrombosis Past Med/Surg History Medical History History of deep vein thrombosis (Resolved) History of multiple sclerosis (Chronic) Elevated uric acid in blood (Inactive) Surgical History Gastric bypass status for obesity S/P cholecystectomy (Resolved) Social History Preferred Language: Taiwanese Feels Safe at Home: Yes Smoking Status: Never smoker Results & Data Vital Signs Vital Signs - 24 hr 12/26/18 17:29 12/26/18 18:20 12/26/18 18:27 Temperature 36.4 C L Temperature Source Oral Sepsis Recent Fever Within 48 Hours No Sepsis Action Taken by Nursing No Action Required Pulse Rate 125 H 104 H 102 H Pulse Rate [Left] Pulse Rate from SpO2 Sensor Pulse Rhythm [Left] Pulse Strength [Left] Respiratory Rate 20 17 14 Respiratory Effort / Characteristics Respiratory Depth Respiratory Pattern Blood Pressure 129/86 168/98 H Blood Pressure [Right Arm] Blood Pressure Mean 100 121 Blood Pressure Mean [Right Arm] Blood Pressure Position Sitting Blood Pressure Position [Right Arm] Pulse Oximetry 95 Oxygen Delivery Method Room Air 12/26/18 18:30 12/26/18 18:31 12/26/18 18:36 Temperature Temperature Source Sepsis Recent Fever Within 48 Hours Sepsis Action Taken by Nursing Pulse Rate 105 H 96 H 105 H Pulse Rate [Left] Pulse Rate from SpO2 Sensor Pulse Rhythm [Left] Pulse Strength [Left] Respiratory Rate 12 19 18 Respiratory Effort / Characteristics Respiratory Depth Respiratory Pattern Blood Pressure 149/114 H 172/97 H Blood Pressure [Right Arm] Blood Pressure Mean 125 122 Blood Pressure Mean [Right Arm] Blood Pressure Position Blood Pressure Position [Right Arm] Pulse Oximetry Oxygen Delivery Method 12/26/18 18:40 12/26/18 18:41 12/26/18 18:45 Temperature Temperature Source Sepsis Recent Fever Within 48 Hours Sepsis Action Taken by Nursing Pulse Rate 111 H 108 H 103 H Pulse Rate [Left] Pulse Rate from SpO2 Sensor Pulse Rhythm [Left] Pulse Strength [Left] Respiratory Rate 24 22 16 Respiratory Effort / Characteristics Respiratory Depth Respiratory Pattern Blood Pressure 136/114 H 125/83 Blood Pressure [Right Arm] Blood Pressure Mean 121 97 Blood Pressure Mean [Right Arm] Blood Pressure Position Blood Pressure Position [Right Arm] Pulse Oximetry Oxygen Delivery Method 12/26/18 18:50 12/26/18 18:55 12/26/18 19:00 Temperature Temperature Source Sepsis Recent Fever Within 48 Hours Sepsis Action Taken by Nursing Pulse Rate 99 H 97 H 99 H Pulse Rate [Left] Pulse Rate from SpO2 Sensor Pulse Rhythm [Left] Pulse Strength [Left] Respiratory Rate 19 17 16 Respiratory Effort / Characteristics Respiratory Depth Respiratory Pattern Blood Pressure 137/102 H 124/86 113/98 Blood Pressure [Right Arm] Blood Pressure Mean 113 98 103 Blood Pressure Mean [Right Arm] Blood Pressure Position Blood Pressure Position [Right Arm] Pulse Oximetry Oxygen Delivery Method 12/26/18 19:05 12/26/18 19:11 12/26/18 19:16 Temperature Temperature Source Sepsis Recent Fever Within 48 Hours Sepsis Action Taken by Nursing Pulse Rate 93 H 104 H 102 H Pulse Rate [Left] Pulse Rate from SpO2 Sensor Pulse Rhythm [Left] Pulse Strength [Left] Respiratory Rate 20 20 19 Respiratory Effort / Characteristics Respiratory Depth Respiratory Pattern Blood Pressure 144/92 H 134/81 134/108 H Blood Pressure [Right Arm] Blood Pressure Mean 109 98 116 Blood Pressure Mean [Right Arm] Blood Pressure Position Blood Pressure Position [Right Arm] Pulse Oximetry Oxygen Delivery Method 12/26/18 19:21 12/26/18 19:25 12/26/18 19:30 Temperature Temperature Source Sepsis Recent Fever Within 48 Hours Sepsis Action Taken by Nursing Pulse Rate 98 H 100 H 100 H Pulse Rate [Left] Pulse Rate from SpO2 Sensor Pulse Rhythm [Left] Pulse Strength [Left] Respiratory Rate 20 17 20 Respiratory Effort / Characteristics Respiratory Depth Respiratory Pattern Blood Pressure 122/89 130/87 Blood Pressure [Right Arm] Blood Pressure Mean 100 101 Blood Pressure Mean [Right Arm] Blood Pressure Position Blood Pressure Position [Right Arm] Pulse Oximetry Oxygen Delivery Method 12/26/18 19:31 12/26/18 19:43 12/26/18 20:00 Temperature Temperature Source Sepsis Recent Fever Within 48 Hours Sepsis Action Taken by Nursing Pulse Rate 101 H 93 H Pulse Rate [Left] 93 H Pulse Rate from SpO2 Sensor Pulse Rhythm [Left] Regular Pulse Strength [Left] Normal Respiratory Rate 24 16 14 Respiratory Effort / Characteristics Non-Labored Spontaneous Respiratory Depth Normal Respiratory Pattern Regular Blood Pressure 131/109 H Blood Pressure [Right Arm] 135/87 Blood Pressure Mean 116 Blood Pressure Mean [Right Arm] 103 Blood Pressure Position Blood Pressure Position [Right Arm] Sitting Pulse Oximetry 96 Oxygen Delivery Method Room Air 12/26/18 22:43 12/26/18 23:00 Temperature Temperature Source Sepsis Recent Fever Within 48 Hours Sepsis Action Taken by Nursing Pulse Rate 89 96 H Pulse Rate [Left] 72 Pulse Rate from SpO2 Sensor 90 98 H Pulse Rhythm [Left] Pulse Strength [Left] Respiratory Rate 21 18 Respiratory Effort / Characteristics Non-Labored Spontaneous Respiratory Depth Normal Respiratory Pattern Regular Blood Pressure Blood Pressure [Right Arm] 125/73 Blood Pressure Mean Blood Pressure Mean [Right Arm] 90 Blood Pressure Position Blood Pressure Position [Right Arm] Sitting Pulse Oximetry 97 96 Oxygen Delivery Method Room Air Home Medications Current Medication List: was personally reviewed by me Laboratory Data Attestation: I reviewed the patient's lab results. Result diagrams: 12/26/18 18:24 12/26/18 18:24 Lab Results 12/26/18 12/26/18 12/26/18 Range/Units 18:24 18:24 18:24 WBC 8.25 (4.8-10.8) K/uL RBC 4.05 L (4.2-5.4) M/uL Hgb 13.2 (12.0-16.0) g/dL Hct 39.1 (37-47) % MCV 96.5 (80-100) fL MCH 32.6 (25-34) pg MCHC 33.8 (32-36) g/dL RDW Std Deviation 49.1 H (36.4-46.3) fL RDW Coeff of [place] 13.8 (11.5-14.5) % Plt Count 247 (130-400) K/uL MPV 10.6 H (7.4-10.4) fL Immature Gran % (Auto) 0.1 % Neut % (Auto) 94.1 % Lymph % (Auto) 3.6 % Warren % (Auto) 2.1 % Eos % (Auto) 0.0 % Baso % (Auto) 0.1 % Immature Gran # (Auto) 0.01 (0.00-0.02) K/uL Neut # (Auto) 7.76 H (1.4-6.5) K/uL Lymph # (Auto) 0.30 L (1.2-3.4) K/uL Warren # (Auto) 0.17 (0.11-0.59) K/uL Eos # (Auto) 0.00 (0-0.5) K/uL Baso # (Auto) 0.01 (0-0.2) K/uL PT 10.9 (9.0-12.0) Seconds INR 1.1 (0.9-1.1) APTT 73.5 H* (21.0-31.0) Seconds PTT Ratio 2.7 Sodium 140 (136-145) mmol/L Potassium 3.7 (3.5-5.1) mmol/L Chloride 110 H (98-107) mmol/L Carbon Dioxide 20 L (21-32) mmol/L Anion Gap 9.0 (3-11) BUN 9 (7-18) mg/dl Creatinine 1.03 (0.6-1.2) mg/dl Est Cr Clr Drug Dosing 108.4 ml/min Est GFR ( Amer) 85.1 Est GFR (Non-Af Amer) 73.4 BUN/Creatinine Ratio 8.6 L (10-20) Glucose 126 H (70-99) mg/dl POC Glucose (70-99) Calcium 8.2 L (8.5-10.1) mg/dl Magnesium 2.3 (1.8-2.4) mg/dl Total Bilirubin 0.5 (0.2-1) mg/dl AST 13 L (15-37) U/L ALT 20 (12-78) U/L Alkaline Phosphatase 126 H (45-117) U/L Troponin I < 0.015 (0-0.045) ng/ml Total Protein 6.7 (6.4-8.2) gm/dl Albumin 3.6 (3.4-5.0) gm/dl Globulin 3.1 (2.5-4.0) gm/dl Albumin/Globulin Ratio 1.2 (0.9-2) Blood Type Antibody Screen 12/26/18 12/26/18 Range/Units 18:24 18:25 WBC (4.8-10.8) K/uL RBC (4.2-5.4) M/uL Hgb (12.0-16.0) g/dL Hct (37-47) % MCV (80-100) fL MCH (25-34) pg MCHC (32-36) g/dL RDW Std Deviation (36.4-46.3) fL RDW Coeff of [place] (11.5-14.5) % Plt Count (130-400) K/uL MPV (7.4-10.4) fL Immature Gran % (Auto) % Neut % (Auto) % Lymph % (Auto) % Warren % (Auto) % Eos % (Auto) % Baso % (Auto) % Immature Gran # (Auto) (0.00-0.02) K/uL Neut # (Auto) (1.4-6.5) K/uL Lymph # (Auto) (1.2-3.4) K/uL Warren # (Auto) (0.11-0.59) K/uL Eos # (Auto) (0-0.5) K/uL Baso # (Auto) (0-0.2) K/uL PT (9.0-12.0) Seconds INR (0.9-1.1) APTT (21.0-31.0) Seconds PTT Ratio Sodium (136-145) mmol/L Potassium (3.5-5.1) mmol/L Chloride (98-107) mmol/L Carbon Dioxide (21-32) mmol/L Anion Gap (3-11) BUN (7-18) mg/dl Creatinine (0.6-1.2) mg/dl Est Cr Clr Drug Dosing ml/min Est GFR ( Amer) Est GFR (Non-Af Amer) BUN/Creatinine Ratio (10-20) Glucose (70-99) mg/dl POC Glucose 115 H (70-99) Calcium (8.5-10.1) mg/dl Magnesium (1.8-2.4) mg/dl Total Bilirubin (0.2-1) mg/dl AST (15-37) U/L ALT (12-78) U/L Alkaline Phosphatase (45-117) U/L Troponin I (0-0.045) ng/ml Total Protein (6.4-8.2) gm/dl Albumin (3.4-5.0) gm/dl Globulin (2.5-4.0) gm/dl Albumin/Globulin Ratio (0.9-2) Blood Type O Positive Antibody Screen NEGATIVE Administered Medications Gadobutrol (Gadavist 65ml) 12 ml IV ONCE PRN PRN Reason: Interaction Checking Stop: 12/30/18 22:20 Last Admin: 12/26/18 22:22 Dose: 12 ml Documented by: [id number] Hydromorphone HCl (Dilaudid) 0.5 mg IV Q15M PRN PRN Reason: Pain Stop: 01/09/19 20:06 Last Admin: 12/26/18 22:47 Dose: 0.5 mg Documented by: [id number] Admin: 12/26/18 20:13 Dose: 0.5 mg Documented by: [id number] Discontinued Medications Ondansetron HCl (Zofran) 4 mg IV NOW STA Stop: 12/26/18 20:08 Last Admin: 12/26/18 20:20 Dose: 4 mg Documented by: [id number] Imaging Data Radiologist's Impression: Radiology results as stated below per my review and the radiologist's interpretation: CT OF THE HEAD WITHOUT CONTRAST CLINICAL HISTORY: Stroke evaluation. Right-sided numbness. Right-sided facial droop. COMPARISON STUDY: Head CT June 03, 2009. CT DOSE: 537.48 mGy.cm TECHNIQUE: Helical axial images of the head were obtained without IV contrast. Automated exposure control was utilized for the study. A dose lowering technique was utilized adhering to the principles of ALARA. FINDINGS: No acute intracranial hemorrhage, midline shift or mass effect is present. The ventricular system is unremarkable. The basilar cisterns are patent. No extra-axial collections are present. There are no findings to suggest acute dural sinus thrombosis or acute territorial infarct. No significant calvarial abnormalities are present. Sinuses are partially imaged. Air-fluid levels within the bilateral maxillary sinuses and ethmoid sinuses are noted. IMPRESSION: 1. No acute intracranial findings. 2. Air-fluid levels within the bilateral maxillary and ethmoid sinuses. Electronically signed by: Harman Marcus M.D. 12/26/2018 6:15 PM US venous doppler UE RT CLINICAL HISTORY: Right upper extremity numbness status post surgery. COMPARISON STUDY: Right upper extremity venous Doppler April 15, 2015. FINDINGS: The right internal jugular, subclavian, axillary, brachial, radial, ulnar, cephalic and basilic veins are patent. No deep venous thrombus within the right upper extremity is identified. IMPRESSION: No deep venous thrombus within the right upper extremity. Electronically signed by: Harman Marcus M.D. 12/26/2018 8:59 PM ECG Data Attestation: I personally reviewed and interpreted this ECG as follows: Indication: weakness Rate (beats per minute): 98 Rhythm: normal sinus Findings: + Q waves (inferior); no PAC, no PVC, no ST depression and no ST elevation Blood Pressure Blood Pressure Findings: Normal blood pressure Discharge Plan Visit Data Chief Complaint: Neuro Symptoms/Deficit Stated Complaint: ARM NUMBNESS, SURGERY 5 DAYS AGO ED Provider: Manolo Navarro Discharge Problem: Facial droop, History of multiple sclerosis, Right arm numbness, History of deep venous thrombosis Patient Disposition: Being Evaluated by Hospitalist Forms Stand Alone Forms: My [facility] Prescriptions Prescriptions: No Action fexofenadine 180 mg Tablet 180 mg PO DAILY PRN (Reason: Allergy Symptoms) RF: 0 omeprazole 40 mg capsule,delayed release(DR/EC) 40 mg PO BID RF: 0 cyanocobalamin (vitamin B-12) 1,000 mcg/mL Solution 1,000 mcg IM MONTHLY RF: 0 ferrous sulfate 325 mg (65 mg iron) tablet 325 mg PO BID RF: 0 venlafaxine 50 mg tablet 50 mg PO BID RF: 0 hydroxyzine HCl 10 mg tablet 10 mg PO HS PRN (Reason: Anxiety) RF: 0 amitriptyline 100 mg tablet 100 mg PO HS RF: 0 medroxyprogesterone 150 mg/mL suspension 150 mg IM .Q12W RF: 0 cranberry 500 mg Capsule 500 mg PO DAILY RF: 0 amoxicillin-pot clavulanate 875-125 mg tablet 1 tab PO BID RF: 0 oxycodone 5 mg tablet 5 mg PO Q6H PRN (Reason: Pain) RF: 0 cholecalciferol (vitamin D3) [Vitamin D3] 1,000 unit Capsule 1,000 unit PO DAILY RF: 0 topiramate 50 mg tablet 50 mg PO BID RF: 0 cholecalciferol (vitamin D3) [Vitamin D3] 5,000 unit Tablet 5,000 unit PO DAILY RF: 0 rizatriptan 10 mg tablet 10 mg PO DIRECTED PRN (Reason: Headache) RF: 0 Ocrevus 30 mg/mL Solution 300 mg IV .[id number] RF: 0 cyclobenzaprine 5 mg tablet 5 mg PO TID PRN (Reason: Muscle Spasm) RF: 0 albuterol sulfate 2.5 mg /3 mL (0.083 %) Solution For Nebulization 2.5 mg INHALATION Q4H PRN (Reason: Wheezing) RF: 0 albuterol sulfate [ProAir HFA] 90 mcg/actuation Hfa Aerosol Inhaler 2 puff INHALATION Q4H PRN (Reason: Wheezing) RF: 0 promethazine 25 mg Tablet 25 mg PO Q6H PRN (Reason: Nausea or Vomiting) RF: 0 diphenhydramine-acetaminophen [Tylenol PM Extra Strength] 25-500 mg Tablet 1 tab PO TID PRN (Reason: Itching) RF: 0 budesonide 32 mcg/actuation spray,non-aerosol 1 spray intranasal BID PRN (Reason: Allergy Symptoms) RF: 0 fluticasone propion-salmeterol [Wixela Inhub] 250-50 mcg/dose blister with device 1 inh inhalation BID PRN (Reason: Shortness Of Breath Or Wheezing) RF: 0 azelastine 137 mcg (0.1 %) aerosol,spray 1 spray intranasal BID PRN (Reason: Allergy Symptoms) RF: 0 Referrals Referrals: Clark Morales DO [Primary Care Provider] - The scribe's documentation has been prepared under my direction and personally reviewed by me in its entirety. I confirm that the note above accurately reflects all work, treatment, procedures, and medical decision making performed by me.
[2018-12-27] MEDS ORDERED: ACETAMINOPHEN 325 MG TAB PO PRN (00:48)
[2018-12-27] MEDS ORDERED: ONDANSETRON INJ 2 MG/ML 2 ML VIAL IV PRN (00:48)
[2018-12-27] MEDS ORDERED: FEXOFENADINE HCL 180 MG TAB PO PRN (00:48)
[2018-12-27] MEDS ORDERED: hydrOXYzine HCl 10 MG TAB PO PRN (00:48)
[2018-12-27] MEDS ORDERED: ALBUTEROL 0.083% NEBU SOLN 3 ML VIAL INH PRN (00:48)
[2018-12-27] MEDS ORDERED: SODIUM CHLORIDE 0.9% 1000ML 1,000 ML IV SCH (00:48)
[2018-12-27] MEDS ORDERED: RIZATRIPTAN BENZOATE 10 MG TAB PO PRN (00:48)
[2018-12-27] MEDS ORDERED: ACETAMINOPHEN 500 MG TAB PO PRN (00:48)
[2018-12-27] MEDS ORDERED: NITROGLYCERIN SL 0.4 MG/TAB TAB SL PRN (00:48)
[2018-12-27] MEDS ORDERED: ALBUTEROL HFA 8 GM INHALER INH PRN (00:48)
--- NOTE | 2018-12-27 01:52 | History and Physical Report ---
DATE OF ADMISSION: 12/26/2018 CHIEF COMPLAINT: Stroke-like symptoms. HISTORY OF PRESENT ILLNESS: This is a 28-year-old female with past medical history significant for mild persistent asthma, mixed rhinitis, morbid obesity, post gastric surgery syndrome, history of of B12 deficiency, multiple sclerosis, acute myelitis, migraine, iron deficiency anemia, major depression, ROCK, history of DVT, who presents with right hand and right upper extremity numbness. The patient had a nasal surgery for nasal septum deviation today in the morning. After surgery, she felt like her right hand is somewhat numb. She thought it was from her blood pressure cuff. She went home and the numbness started to climb up the hand and feeling of pins and needles and she could not hold a fork and at that time she came to the ER. In the ER, the CAT scan of the head was done which was unremarkable. Stroke alert was called. Because of her symptoms and because of her MS disease stroke alert, but neurology didn't want to give tPA and also hold the aspirin for now as she has MS and also recent surgery and to do the full workup with MRI scan and the patient is status post MRA of the head and neck, MRI of the brain and cervical spine, MR venography of the brain. All were unremarkable except for showing her MS lesions, but there is no active demyelination. The patient has history of acute DVT in the right upper extremity and patient was concerned about it and venous Doppler was negative. Currently, the patient says she still has some numbness in the hands. She is ambulating in the ER room fine. She is speaking fine and swallowing okay. She is able to hold a cup in the hand, but thinks she is still somewhat weak. Has some head fullness, some earache from the morning nasal surgery and some sore throat because of the intubation. No cough, no fever, no chills, no chest pain, no shortness of breath, no nausea, no vomiting, no abdominal pain. Normal bowel and bladder movements. No swelling in the legs, no rash. Currently resting comfortably and hemodynamically stable. ALLERGIES: ROBAXIN, CEPHALEXIN, CLINDAMYCIN, SULFA ANTIBIOTICS, VICODIN. PAST MEDICAL HISTORY: As mentioned above. PAST SURGICAL HISTORY: Nasal septal deviation surgery, EGDs, gastric revision surgery for obesity, EGD with transendoscopic dilatation, dental surgery, A-port placement, laparoscopic cholecystectomy,wedge biopsy of the liver, tonsillectomy. MEDICATIONS: The patient is currently on Augmentin 1 tablet p.o. b.i.d. for 10 days starting today, oxycodone 5 mg p.o. q. 6 hours p.r.n., Topamax 50 mg p.o. b.i.d., omeprazole 40 mg p.o. daily, ferrous sulfate 325 mg p.o. b.i.d., breonna 180 mg p.o. daily p.r.n., Effexor 50 mg p.o. b.i.d., albuterol 2 puffs every 4 hours p.r.n., Advair Diskus 1 puff b.i.d., albuterol nebulization every 4 hours p.r.n., promethazine 25 mg p.o. q. 6 hours p.r.n., Elavil 100 mg p.o. at bedtime, Ocrevus administered intravenously every 6 months, hydroxyzine 10 mg p.o. at bedtime p.r.n., vitamin B12 injections, cranberry 500 mg p.o. daily, Maxalt 10 mg p.r.n. for migraines, Tylenol PM Extra Strength with diphenhydramine 1 tablet p.o. 3 times a day p.r.n. for itching, vitamin D 5000 units p.o. daily, Flintstones daily. FAMILY HISTORY: Significant for father has arthritis, gastrointestinal disorder, hypertension, obesity. Mother has obesity, arthritis. Brother has allergies, asthma. SOCIAL HISTORY: Single. No smoking history. No alcohol, no drug use. REVIEW OF SYSTEMS: As per HPI. Rest of the review of systems negative. PHYSICAL EXAMINATION: GENERAL: The patient is obese, not in acute distress. VITAL SIGNS: Temperature 36.4, pulse 72, respiratory rate 18, blood pressure 125/73, oxygen 96% on room air. HEENT: No pallor, no icterus. Pupils equal, round, and reactive to light. NECK: No JVD, no neck masses, no carotid bruits. CARDIOVASCULAR: S1, S2 heard, regular rate and rhythm, no murmur, no gallop. RESPIRATORY SYSTEM: Normal AP diameter. No accessory muscle use. No wheezing, no crackles. ABDOMEN: Soft, bowel sounds present, nontender. No distention. CENTRAL NERVOUS SYSTEM: Alert, awake, and oriented. Mild decreased sensation in the right upper extremity and also mild decreased strength in the right upper extremity. Coordination of movements normal. No pronator drift. Izww-lu-[id number] test normal. Position sense intact. EXTREMITIES: No edema, no erythema. LABORATORY DATA: WBC 8.25, hemoglobin 13.2, hematocrit 39.1, platelets 247. PT 10.9, INR 1.1, APTT 73.5. Sodium 140, potassium 3.7, chloride 110, bicarbonate 20, BUN ____, creatinine 1.03, serum glucose 126, calcium 8.2, magnesium 2.3, total bilirubin 0.5, AST 13, ALT 20, alkaline phosphatase 126. Troponin I 0.015. EKG: Normal sinus rhythm with rate of 98, no significant change from previous EKG. IMAGING: CT of the head, no acute findings. bilateral maxillary and ethmoid sinuses. Venous Doppler study of the right upper extremity, no DVT. Brain MRI, no acute intracranial findings. Extensive white matter T2 hyperintense foci consistent with history of multiple sclerosis. No evidence for active demyelination. Air-fluid level within bilateral maxillary, ethmoid sinuses. Cervical spine MRI, extensive signal abnormality within the cervical cord and visualized portion of the thoracic cord consistent with history of multiple sclerosis. No evidence of active demyelination. Patent central canal and neural foramen. No disc herniations. l MRA of the head unremarkable. Neck MRA, unremarkable Brain venography, no evidence of dural sinus thrombosis. ASSESSMENT AND PLAN: This is a 28-year-old female who presents with right upper extremity numbness and weakness. 1. Right upper extremity numbness and weakness, post nasal deviation surgery, history of multiple sclerosis and a question of stroke. All the imaging studies are negative for any stroke. She also has lesions of multiple sclerosis, but no active demyelination. Question of multiple sclerosis flare. The patient follows with [facility]. Will admit the patient to tele floor and consult neurology in the a.m. Discussed with neurology to just observe for now. We will monitor. 2. History of multiple sclerosis, home medications. Follows with neurology at [facility]. 3. History of migraines. Continue Topamax, Maxalt p.r.n. 4. History of depression, on Elavil, Effexor. 5. asthma, mild, persistent. Continue home inhalers and nebs p.r.n. 6. History of nasal surgery for nasal deviation.followup with ENT. 7. History of sinusitis. Continue her home Augmentin, which was started today. 8. Deep venous thrombosis prophylaxis, sequential compression devices. DISPOSITION: Closely monitor in the tele floor. Expect to discharge home and follow with her family doctor. Level 1 full code. MTDD
[2018-12-27 05:56] LABS: Eosinophils # (auto) 0.01 K/uL (0-0.5); Eosinophils % (auto) 0.1 %; Hematocrit (blood only) 36.4 % (37-47); Hemoglobin 12.1 g/dL (12.0-16.0); Immature Granulocytes # (auto) 0.01 K/uL (0.00-0.02); Immature Granulocytes % (auto) 0.1 %; Lymphocytes # (auto) 0.74 K/uL (1.2-3.4); Lymphocytes % (auto) 8.7 %; Mean Corpuscular Hemoglobin 31.8 pg (25-34); Mean Corpuscular Hgb Conc 33.2 g/dL (32-36); Mean Corpuscular Volume 95.8 fL (80-100); Mean Platelet Volume 10.5 fL (7.4-10.4); Monocytes # (auto) 0.85 K/uL (0.11-0.59); Neutrophils # (auto) 6.85 K/uL (1.4-6.5); Neutrophils % (auto) 81.1 %; Platelet Count 239 K/uL (130-400); RDW Coefficient of Variation 13.5 % (11.5-14.5); RDW Standard Deviation 47.6 fL (36.4-46.3); White Blood Count 8.46 K/uL (4.8-10.8)
[2018-12-27 06:29] LABS: BUN Creatinine Ratio 9.9 (10-20); Calcium 8.2 mg/dl (8.5-10.1); Creatinine Clr Calc Pharmacy 144.6 ml/min; Est GFR (African American) 119.1; Est GFR (Non-African American) 102.7; Magnesium 2.3 mg/dl (1.8-2.4); Potassium 3.9 mmol/L (3.5-5.1)
--- NOTE | 2018-12-27 06:42 | Communication Note ---
Date of Service: December 27, 2018I received a consult today on Shaunna Jerome, reviewed her case last night by telephone with Dr. Matthews, and reviewed her history of more detail her imaging studies which were done to evaluate the abrupt onset of right hand and arm numbness a sending slowly over a period of several hours and occurring after an operative procedure we will repair the na jaime septum and associated apparently with some head fullness and perhaps a true headache. According to the notes the symptoms will begin to improve, it is not felt to be a candidate for TPA, and there is no evidence on imaging studies that her MS which is moderately extensive, has any acute exacerbation based on the absence of contrast-enhancement. At this point I would recommend no active treatment, observation only, and I will be in early this afternoon to assess her and if she is stable improving probably clear her for discharge. Impossible to tell whether this could have been a migrainous aura, a "pseudo- flare" of her multiple sclerosis but if symptoms are improving and imaging study showed nothing significant and a policy of nontreatment is appropriate particularly in the setting of a postoperative state in which we really do not want to add more immunosuppression Manolo Marc MD
[2018-12-27 07:53] LABS: Partial Thromboplastin Time 28.2 Seconds (21.0-31.0)
[2018-12-27] MEDS: FERROUS SULFATE 325 MG TAB PO SCH ×2 (08:22→21:22)
[2018-12-27] MEDS: VENLAFAXINE HCL 50 MG TAB PO SCH ×2 (08:22→21:23)
[2018-12-27] MEDS: FLUTICASONE/SALMETEROL 250/50 (ADVAIR) 14 PUFF/1 INHALER INH SCH ×2 (08:22→21:24)
[2018-12-27] MEDS: TOPIRAMATE 50 MG TAB PO SCH ×2 (08:22→21:23)
[2018-12-27] MEDS: PANTOprazole 40 MG TAB PO SCH ×2 (08:22→21:22)
[2018-12-27] MEDS: AMOXICILLIN/CLAVULANATE 875 MG TAB PO SCH ×2 (08:22→17:18)
--- NOTE | 2018-12-27 12:20 | Hospitalist Progress Note ---
Date of Service December 27, 2018 Assessment & Plan (1) Right arm numbness: Presented with right upper arm numbness, Initial presentation had marked weakness which has resolved Patient has history of multiple sclerosis, follows with neurology in [place] Detail neuroimaging MRI of brain/MRA of brain and neck,-showed no evidence of acute CVA or change MRI of cervical spine: Shows extensive signal abnormality within the cervical cord and visualized portion of thoracic cord consistent with the history of multiple sclerosis. No evidence of active demyelination. Patent central canal and neural foramina, no disc herniation Discussed with neurology, Patient and her mother are upset as no one ever told her any changes noted on her cervical spine (patient never had a cervical spine MRI performed) Patient will be given IV Solu-Medrol 1 g for 2-day (1 g today: 1 g tomorrow 12/28/2018) Patient will be possible discharge home tomorrow after IV Solu-Medrol We will continue to follow-up with neurology in [place] (2) History of multiple sclerosis: Follows with neurology team in [place] Presented with right arm weakness numbness, Motor symptom has completely resolved Neuro imaging does not show any evidence of acute CVA, no evidence of active flare of multiple sclerosis Cervical spine MRI shows lower cervical C6-T2 increased intensity suggestive of prior history of multiple sclerosis Given patient's presentation with right upper extremity numbness, weakness She will be treated empirically with high-dose of IV Solu-Medrol Neurology following: Appreciate input (3) S/P surgery on nasal septum: Recent deviated nasal septum surgery by ENT CT head shows evidence of sinusitis Patient already started with p.o. Augmentin, complete course She is afebrile, no leukocytosis Remained stable hemodynamically HISTORY OF RIGHT UPPER EXTREMITY DVT in 2016 Patient had an a port on right upper chest wall: Possibly provoked DVT Was on Coumadin for 6 months Right upper extremity venous Doppler: No evidence of DVT noted CODE STATUS full code DVT prophylaxis: SCD and teds patient is encouraged to ambulate Disposition: Expected to be discharged home possible tomorrow Subjective Patient continues to complain of numbness on right arm, Has normal strength normal range of motion No headache no blurred vision No weakness or paresthesia in any part of the body No fever chills Review of Systems Review of Systems: All systems reviewed & are unremarkable except as noted in HPI & below Physical Exam Constitutional: WD/WN, vitals as above Eyes: PERRL, conjunctivae normal, anicteric sclerae ENMT: external ear and nose normal, oropharynx normal Neck: trachea midline, no thyromegaly Respiratory: normal respiratory effort, lungs clear to auscultation Cardiovascular: RRR, no murmur, no edema Gastrointestinal (Abdomen): normal bowel sounds, soft, nontender, no hepatosplenomegaly Musculoskeletal: no cyanosis or clubbing, extremities motor strength 5/5 Skin: no rashes, warm and dry Neurologic: PERRL, EOMI, accommodation nl, no face palsy, no dysarthria Psychiatric: A+Ox3, euthymic affect Genitourinary: no vaginal lesions, no adnexal mass Results & Data Vital Signs (Past 12 Hours) Vital Signs Temp Pulse Resp BP BP Pulse Ox 12/27/18 12:15 36.7 C 113 H 18 123/82 99 12/27/18 07:53 36.6 C 96 H 18 112/73 100 12/27/18 03:47 36.4 C L 82 16 107/72 98 12/27/18 00:40 80 18 133/73 98
[2018-12-27] MEDS: OXYCODONE HCL IR 5 MG TAB (IMMEDIATE RELEASE) PO PRN ×2 (12:38→18:44)
[2018-12-27] MEDS ORDERED: LORazepam 1 MG TAB PO PRN (14:11)
--- NOTE | 2018-12-27 14:22 | Communication Note ---
Date of Service: December 27, 2018 I saw Shaunna today in the presence of her mother and discussed the findings and her clinical course with Dr. Chapa the attending physician. Shaunna now has a little bit of a headache and is requested some Dilaudid and the numbness of her arm which yesterday involved the proximal portion of the arm and probably her face is now descended to her forearm but the hand remains numb and a little dysfunctional for fine manipulative tasks. Apparently she has never had a cervical MRI scan and was a little upset that she has lesions in the cervical spine and I explained to her that this would not be unexpected in her MS. None of the lesions however show enhancement nor do any of the cortical lesions but despite this the scan was done rather acutely after the onset of her symptoms and her symptoms could represent a true mild flare of her MS perhaps related to the stress of surgery. I discussed the potential diagnosis of a migraine with sensory aura but she denies ever having had a similar set of symptoms in the past so I think we are going to go with the diagnosis of a minor MS flare here and treat her with IV Solu-Medrol 1 g today and then another gram tomorrow in hopes that this will be sufficient to produce resolution of her symptoms and permit her to be discharged home. I am reluctant to commit her to a full 4-day course of IV Solu-Medrol as her symptoms seem to be improving spontaneously but both she and her mother quite upset by these symptoms and I suspect that the Solu-Medrol will be effective in alleviating the. I discussed this with Dr. Chapa as I think she is going to write the orders for Solu-Medrol I will check back with her tomorrow afternoon probably around 2 to 3 in the afternoon and if she is doing well then will probably allow her to be discharged home A full consultation has been dictated but will be typed probably later tonight or even tomorrow Manolo Marc MD
--- NOTE | 2018-12-27 15:03 | Progress Note ---
DATE: 12/27/2018 CONSULTATION REQUESTED BY: Dr. Chapa. LOCATION: She is in room 229. Shaunna is 28 years old, is right handed, is a patient of Dr. Clark Morales and is a former patient of Dr. Juan C Jasso, myself, Jennifer Chairez who all were evaluating her for multiple sclerosis and her migraine headaches over the past few years. I actually last saw Shaunna probably in 2015, after which she was transferred to the care of Dr. Chairez and then subsequently to Dr. Swift at [facility] who has been seeing her now for her MS and has her on Ocrevus for the past year, which has been tolerated well. Her last flareup of her MS was probably in 2017, when she had some hypersensitivity of the left anterior chest wall and neck pain. I do not know what imaging studies were done then. Other problems include migraine headaches with occasional visual aura, but never any apparently somatosensory issues, iron deficiency anemia, major depression, nonalcoholic steatohepatitis, history of DVT, chronic moderate to moderately severe over nourishment and apparently a deviated nasal septum which required nasal surgery actually yesterday under general anesthesia. Almost immediately upon awakening from surgery, she felt that her right hand was numb, but attributed this to the blood pressure cuff and went home only to have the numbness ascend from the hand to the shoulder and then perhaps involve her face. Because of this, she was brought to the Emergency Room, a stroke alert was called and she went through a series of studies including a CT scan of the head, CT angiographic studies and subsequently MRIs of her brain and cervical cord, both with and without contrast, after the [place] [facility] team reviewed her history, assessed that she probably did not have a CVA and felt that she may have had a flareup of her multiple sclerosis. All studies have been unremarkable with the exception of the lesions that have been seen previously in her brain on MRI and no enhancement was noted. In the neck several cord lesions were seen, all of which appeared to be chronic and inactive and there were some hemangiomas in the vertebral bodies. According to Shaunna she has never been made aware of any abnormalities of her cervical spine and I really cannot confirm or deny this. Since admission, things have improved. She has talked about some pressure in her head, received some Dilaudid in the ER and has requested another round of Dilaudid now, even though she tells me that the headache is not a major issue. She no longer has any facial asymmetry and the numbness which was up to her shoulder is now down to her forearm, but her hand is still at times a little dysfunctional, although while circling around at the bedside, I note that she is using the hand to work her cell phone and other activities. PAST MEDICAL HISTORY: Otherwise, as noted above. PAST SURGICAL HISTORY: Reveals the nasal septal surgery yesterday, EGDs, gastric bypass for obesity, dental surgery, A-port placement, laparoscopic cholecystectomy, wedge biopsy of the liver and tonsillectomy. MEDICATIONS: At home include Augmentin, which is immediately postop, will be continued for 10 days, oxycodone every 6 hours as needed, Topamax 50 twice a day which she has had for migraines, omeprazole, ferrous sulfate, Gemma, Effexor, albuterol, Advair Diskus, promethazine as needed, hydroxyzine, vitamin B12, Maxalt as needed for migraines, Tylenol PM extra strength with Benadryl 25 mg t.i.d. as needed for itching, vitamin D 5000 units daily, Flintstones daily and the Ocrevus infusion every 6 months. FAMILY HISTORY: Significant for father with arthritis, gastrointestinal disease, hypertension, obesity in a mother with obesity, arthritis and migraine headaches. Her brother has allergies and asthma. No other family members are said to have demyelinating disease or much in the way of immunologic disorders. REVIEW OF SYSTEMS: With the exception of the nasal surgery and the current issue with her hand that has been relatively unremarkable, but no recent infectious illnesses urinary tract infections, fevers, sweats, chills, weight loss, weight gain. No new issues referable to head, eyes, ears, nose and throat other than the ENT surgery. No cardiovascular, pulmonary, gastrointestinal, genitourinary, musculoskeletal, dermatologic, hematologic, or endocrinologic issues other than those related to her chronic medical problems and from a neurologic point of view this is the only flareup of neurologic symptoms she has reported since 2017. PHYSICAL EXAMINATION: VITAL SIGNS: Last night she was moderately obese, no acute distress. Temperature is 36.4, pulse was 72, respiratory rate was 18, blood pressure 125/73, O2 saturation 96%. GROSS EXAMINATION OF HEAD, EYES, EARS, NOSE AND THROAT, NECK, CARDIOVASCULAR, RESPIRATORY SYSTEM, ABDOMEN, AND EXTREMITIES: Unremarkable, and specifically revealed no cardiac murmurs. No carotid bruits, clear lungs, no peripheral edema and good peripheral pulses. NEUROLOGIC: Today, neurologically she is awake, alert, oriented in 3 spheres, there may be a minimal right facial asymmetry. Otherwise, eye movements are normal. Visual antonio are full. Visual acuity is grossly intact about 20/30 estimated, near vision appears to be excellent. She is able to work her cell phone. Facial sensation is normal. Speech is clear. Neck strength is normal. There may be a slight drift and contraction of the right arm when the arms are extended and eyes are closed, but there are no deficits on [id number] or [id number] testing with eyes closed and I would suggest a significant proprioceptive defect in the left hemisphere. Rapid repetitive motions are excellent and the arm and leg reflexes are symmetrical. Toes are downgoing. No Jena signs are seen. Strength testing is grossly intact and gross sensation reveals a subjective reduction in appreciation of touch over the right hand extending into the forearm, but is otherwise unremarkable. There is no evidence for sensory neglect. Laboratory studies have been unremarkable and imaging studies were discussed above and are available on review of the EMR. The brain lesions are chronic in appearance did not demonstrate any enhancement and there is nothing on diffusion weighted imaging that would suggest a cerebrovascular event. The cervical spine images again showed multiple areas of probable multiple sclerosis involvement but these appear chronic and active and no enhancement is noted. At this point, I think we have to assume that this was an acute flareup of her MS and not a vascular event and probably not a migraine, although interestingly enough she is reporting headaches, severe enough to require narcotic analgesics. Whatever the case, I see no harm in a very short course of IV Solu-Medrol here which would help both a presumptive MS flare and migraine headache and we are going to go with a gram of Solu-Medrol today which will require some sedation tonight. In light of her history of IV Solu-Medrol intolerance due to insomnia and another gram tomorrow and I will take a look at her in the afternoon and decide then about whether she can be discharged. I would like to keep the steroid doses to a minimal, would not put her on any maintenance steroids and if her symptoms resolve as they seem to be in the process of doing so now I do not think she needs anything more than follow up with Dr. Swift as previously scheduled. I will check back with her tomorrow and I have discussed all my impressions and plans with Dr. Chapa and the family. MAR
[2018-12-27] MEDS: methylPREDNISolone 1,000 MG in DEXTROSE 5% 250 ML IV SCH (15:40)
[2018-12-27] MEDS ORDERED: AMITRIPTYLINE HCL 100 MG TAB PO SCH (21:00)
[2018-12-28] MEDS ORDERED: HEPARIN 100 UNIT/ML 5ML FLUSH FLUSH PRN (01:42)
[2018-12-28] MEDS ORDERED: COUGH DROP (SUGAR FREE) LOZ 24 LOZ/1 BOX BUCCAL ONE (09:02)
[2018-12-28] MEDS: PANTOprazole 40 MG TAB PO SCH (09:35)
[2018-12-28] MEDS: VENLAFAXINE HCL 50 MG TAB PO SCH (09:35)
[2018-12-28] MEDS: FLUTICASONE/SALMETEROL 250/50 (ADVAIR) 14 PUFF/1 INHALER INH SCH (09:35)
[2018-12-28] MEDS: FERROUS SULFATE 325 MG TAB PO SCH (09:35)
[2018-12-28] MEDS: TOPIRAMATE 50 MG TAB PO SCH (09:35)
[2018-12-28] MEDS: AMOXICILLIN/CLAVULANATE 875 MG TAB PO SCH ×2 (09:35→17:04)
--- NOTE | 2018-12-28 12:55 | Communication Note ---
Date of Service: December 28, 2018 I saw Shaunna today in accompaniment of her mother and I am pleased to report that her hand is almost entirely back to baseline, she did not have a signif icant problem with insomnia last night, her headaches seem to be gone and she is due for 1 more gram of Solu-Medrol in an hour so and was things would change I suggest she be discharged to home and not have any steroid tapering and follow- up with Dr. Swift her multiple sclerosis neurologist and [place] as previously scheduled. Examination is essentially normal despite the moderately extensive areas of [place] involvement with her MS involving the brain and spinal cord The cause of this several day episode of right arm numbness occurring in the setting of anesthesia for nasal septal surgery remains unclear and could be migrainous particularly in light of the associated headache we could also have been a stress related to acute flare of her MS and we have empirically treated her for the latter with very short courses of high-dose Solu-Medrol without intention to continue these on an outpatient basis for fear of inducing excessive immunosuppression and retarding wound healing in this immediate postoperative state Neurology is going to sign off the case acting on the assumption she will be discharged tonight after receiving the IV Solu-Medrol dose Manolo Marc MD
--- NOTE | 2018-12-28 14:47 | Hospitalist Progress Note ---
Date of Service December 28, 2018 Assessment & Plan (1) Right arm numbness: Symptom has completely resolved Appreciate input from neurology, patient given 1 g IV Solu-Medrol daily x2 bag No complaint of headache no blurred vision, no neck pain Stable to be discharged home today Presented with right upper arm numbness, Initial presentation had marked weakness which has resolved Patient has history of multiple sclerosis, follows with neurology in [place] Dr. Swift Detail neuroimaging MRI of brain/MRA of brain and neck,-showed no evidence of acute CVA or change MRI of cervical spine: Shows extensive signal abnormality within the cervical cord and visualized portion of thoracic cord consistent with the history of multiple sclerosis. No evidence of active demyelination. Patent central canal and neural foramina, no disc herniation Appreciate input from neurology Patient is stable to be discharged home Continue to follow with Dr. Swift her multiple sclerosis neurologist at [facility] as previously scheduled. (2) History of multiple sclerosis: Follows with neurology team in [place] at [facility] Presented with right arm weakness numbness, symptom has completely resolved Neuro imaging does not show any evidence of acute CVA, no evidence of active flare of multiple sclerosis Cervical spine MRI shows lower cervical C6-T2 increased intensity suggestive of prior history of multiple sclerosis Given patient's presentation with right upper extremity numbness, weakness She w treated empirically with high-dose of IV Ffas-Oxbgje-4 g of IV Solu-Medrol daily x2 dose Neurology following: Appreciate input Patient is discharged home in stable condition (3) S/P surgery on nasal septum: Recent deviated nasal septum surgery by ENT CT head shows evidence of sinusitis Patient already started with p.o. Augmentin, complete course She is afebrile, no leukocytosis Remained stable hemodynamically HISTORY OF RIGHT UPPER EXTREMITY DVT in 2016 Patient had an a port on right upper chest wall: Possibly provoked DVT Was on Coumadin for 6 months Right upper extremity venous Doppler: No evidence of DVT noted CODE STATUS full code DVT prophylaxis: SCD and teds patient is encouraged to ambulate Disposition: Stable to be discharged home today Subjective Right arm numbness, completely resolved, no headache no blurred vision, Finished second dose of IV Solu-Medrol Feels like her baseline Very eager to be discharged home today Mother present at bedside Physical Exam Constitutional: WD/WN, vitals as above Eyes: PERRL, conjunctivae normal, anicteric sclerae ENMT: external ear and nose normal, oropharynx normal Neck: trachea midline, no thyromegaly Respiratory: normal respiratory effort, lungs clear to auscultation Cardiovascular: RRR, no murmur, no edema Gastrointestinal (Abdomen): normal bowel sounds, soft, nontender, no hepatosplenomegaly Musculoskeletal: no cyanosis or clubbing, extremities motor strength 5/5 Skin: no rashes, warm and dry Neurologic: PERRL, EOMI, accommodation nl, no face palsy, no dysarthria Psychiatric: A+Ox3, euthymic affect Genitourinary: no vaginal lesions, no adnexal mass Results & Data Vital Signs (Past 12 Hours) Vital Signs Temp Pulse Resp BP BP Pulse Ox 12/28/18 11:33 36.8 C 93 H 20 157/99 H 109/72 94 12/28/18 10:08 93 H 157/99 H 12/28/18 07:08 36.8 C 57 L 20 174/90 H 94
[2018-12-28] MEDS: methylPREDNISolone 1,000 MG in DEXTROSE 5% 250 ML IV SCH (15:14)
--- NOTE | 2018-12-28 17:28 | Discharge Summary ---
Date of Service December 28, 2018 Admission HPI Per Admitting Provider DICTATED BY: Edmund Matthews MD DATE OF ADMISSION: 12/26/2018 CHIEF COMPLAINT: Stroke-like symptoms. HISTORY OF PRESENT ILLNESS: This is a 28-year-old female with past medical history significant for mild persistent asthma, mixed rhinitis, morbid obesity, post gastric surgery syndrome, history of of B12 deficiency, multiple sclerosis, acute myelitis, migraine, iron deficiency anemia, major depression, ROCK, history of DVT, who presents with right hand and right upper extremity numbness. The patient had a nasal surgery for nasal septum deviation today in the morning. After surgery, she felt like her right hand is somewhat numb. She thought it was from her blood pressure cuff. She went home and the numbness started to climb up the hand and feeling of pins and needles and she could not hold a fork and at that time she came to the ER. In the ER, the CAT scan of the head was done which was unremarkable. Stroke alert was called. Because of her symptoms and because of her MS disease stroke alert, but neurology didn't want to give tPA and also hold the aspirin for now as she has MS and also recent surgery and to do the full workup with MRI scan and the patient is status post MRA of the head and neck, MRI of the brain and cervical spine, MR venography of the brain. All were unremarkable except for showing her MS lesions, but there is no active demyelination. The patient has history of acute DVT in the right upper extremity and patient was concerned about it and venous Doppler was negative. Currently, the patient says she still has some numbness in the hands. She is ambulating in the ER room fine. She is speaking fine and swallowing okay. She is able to hold a cup in the hand, but thinks she is still somewhat weak. Has some head fullness, some earache from the morning nasal surgery and some sore throat because of the intubation. No cough, no fever, no chills, no chest pain, no shortness of breath, no nausea, no vomiting, no abdominal pain. Normal bowel and bladder movements. No swelling in the legs, no rash. Currently resting comfortably and hemodynamically stable. Principal Diagnosis NO EVIDENCE OF ANY CVA, TIA, MULTIPLE SCLEROSISSTABLE Discharge Exam Constitutional WD/WN, vitals as above Eyes PERRL, conjunctivae normal, anicteric sclerae ENMT external ear and nose normal, oropharynx normal Neck trachea midline, no thyromegaly Respiratory normal respiratory effort, lungs clear to auscultation Cardiovascular RRR, no murmur, no edema Gastrointestinal (Abdomen) normal bowel sounds, soft, nontender, no hepatosplenomegaly Musculoskeletal no cyanosis or clubbing, extremities motor strength 5/5 Skin no rashes, warm and dry Neurologic PERRL, EOMI, accommodation nl, no face palsy, no dysarthria Psychiatric A+Ox3, euthymic affect Genitourinary no vaginal lesions, no adnexal mass Discharge Data Allergies Allergy/AdvReac Type Severity Reaction Status Date / Time Sulfa (Sulfonamide Allergy Severe Hives Verified 12/26/18 20:11 Antibiotics) hydrocodone Allergy Intermediate Itching Verified 12/26/18 20:11 Cephalosporins Allergy Mild Hives Verified 12/26/18 20:11 methocarbamol Allergy Unknown Rash Verified 12/26/18 20:11 clindamycin AdvReac Unknown Heartburn Verified 12/26/18 20:11 Consultations 12/26/18 20:06 ED Decision to Admit Stat 12/27/18 09:00 Consult Neurology Routine Ordered Studies 12/26/18 18:00 CT head/brain wo con Stat US venous doppler UE RT Stat 12/26/18 19:51 MR angio head wo con Stat MR angio neck wo/w con Stat MR brain wo/w con Stat MR cervical spine wo/w con Stat MR venography head wo con Stat Hospital Course (1) Right arm numbness: Symptom has completely resolved Appreciate input from neurology, patient given 1 g IV Solu-Medrol daily x2 bag No complaint of headache no blurred vision, no neck pain Stable to be discharged home today Presented with right upper arm numbness, Initial presentation had marked weakness which has resolved Patient has history of multiple sclerosis, follows with neurology in [place] Dr. Swift Detail neuroimaging MRI of brain/MRA of brain and neck,-showed no evidence of acute CVA or change MRI of cervical spine: Shows extensive signal abnormality within the cervical cord and visualized portion of thoracic cord consistent with the history of multiple sclerosis. No evidence of active demyelination. Patent central canal and neural foramina, no disc herniation Appreciate input from neurology Patient is stable to be discharged home Continue to follow with Dr. Swift her multiple sclerosis neurologist at [facility] as previously scheduled. (2) History of multiple sclerosis: Follows with neurology team in [place] at [facility] Presented with right arm weakness numbness, symptom has completely resolved Neuro imaging does not show any evidence of acute CVA, no evidence of active fla re of multiple sclerosis Cervical spine MRI shows lower cervical C6-T2 increased intensity suggestive of prior history of multiple sclerosis Given patient's presentation with right upper extremity numbness, weakness She w treated empirically with high-dose of IV Pexk-Ueffvw-0 g of IV Solu-Medrol daily x2 dose Neurology following: Appreciate input Patient is discharged home in stable condition (3) S/P surgery on nasal septum: Recent deviated nasal septum surgery by ENT CT head shows evidence of sinusitis Patient already started with p.o. Augmentin, complete course She is afebrile, no leukocytosis Remained stable hemodynamically HISTORY OF RIGHT UPPER EXTREMITY DVT in 2016 Patient had an a port on right upper chest wall: Possibly provoked DVT Was on Coumadin for 6 months Right upper extremity venous Doppler: No evidence of DVT noted CODE STATUS full code DVT prophylaxis: SCD and teds patient is encouraged to ambulate Disposition: Stable to be discharged home today Total Time Total Time Spent Total Time Spent (In Minutes): Approximately 35-minute Total Time Includes: Examination of the Patient, Discharge Planning and Medication Reconciliation Discharge Plan Discharge Items Patient Disposition: Home - Self-Care Reason For Visit: STROKE LIKE SYMPTOMS Discharge Diagnosis: NO EVIDENCE OF ANY CVA, TIA, MULTIPLE SCLEROSISSTABLE Discharge Goals: Decrease discomfort Activity: Resume your previous activity Non-emergency contact: Primary Care Provider Call non-emergency contact if: you have any medication questions Follow-up/Referrals: Jenny Kumar MD [Hospitalist] - 12/30/18 12:45 pm (Hospital follow-up with Dr. Kumar at [facility] on 12/30/2018 at 12:[address] Morales's schedule is full) Diet: Regular Addtl Provider Instructions: Hospital follow-up with Dr. Kumar at [facility] on 12/30/2018 at 12:[address] Morales's schedule is full Continue follow-up with neurology at [facility] Prescriptions: Continued fexofenadine 180 mg Tablet 180 mg PO DAILY PRN (Reason: Allergy Symptoms) RF: 0 omeprazole 40 mg capsule,delayed release(DR/EC) 40 mg PO BID RF: 0 cyanocobalamin (vitamin B-12) 1,000 mcg/mL Solution 1,000 mcg IM MONTHLY RF: 0 ferrous sulfate 325 mg (65 mg iron) tablet 325 mg PO BID RF: 0 venlafaxine 50 mg tablet 50 mg PO BID RF: 0 hydroxyzine HCl 10 mg tablet 10 mg PO HS PRN (Reason: Anxiety) RF: 0 amitriptyline 100 mg tablet 100 mg PO HS RF: 0 medroxyprogesterone 150 mg/mL suspension 150 mg IM .Q12W RF: 0 cranberry 500 mg Capsule 500 mg PO DAILY RF: 0 amoxicillin-pot clavulanate 875-125 mg tablet 1 tab PO BID RF: 0 oxycodone 5 mg tablet 5 mg PO Q6H PRN (Reason: Pain) RF: 0 cholecalciferol (vitamin D3) [Vitamin D3] 1,000 unit Capsule 1,000 unit PO DAILY RF: 0 topiramate 50 mg tablet 50 mg PO BID RF: 0 cholecalciferol (vitamin D3) [Vitamin D3] 5,000 unit Tablet 5,000 unit PO DAILY RF: 0 rizatriptan 10 mg tablet 10 mg PO DIRECTED PRN (Reason: Headache) RF: 0 Ocrevus 30 mg/mL Solution 300 mg IV .[id number] RF: 0 cyclobenzaprine 5 mg tablet 5 mg PO TID PRN (Reason: Muscle Spasm) RF: 0 albuterol sulfate 2.5 mg /3 mL (0.083 %) Solution For Nebulization 2.5 mg INHALATION Q4H PRN (Reason: Wheezing) RF: 0 albuterol sulfate [ProAir HFA] 90 mcg/actuation Hfa Aerosol Inhaler 2 puff INHALATION Q4H PRN (Reason: Wheezing) RF: 0 promethazine 25 mg Tablet 25 mg PO Q6H PRN (Reason: Nausea or Vomiting) RF: 0 diphenhydramine-acetaminophen [Tylenol PM Extra Strength] 25-500 mg Tablet 1 tab PO TID PRN (Reason: Itching) RF: 0 budesonide 32 mcg/actuation spray,non-aerosol 1 spray intranasal BID PRN (Reason: Allergy Symptoms) RF: 0 fluticasone propion-salmeterol [Wixela Inhub] 250-50 mcg/dose blister with device 1 inh inhalation BID RF: 0 azelastine 137 mcg (0.1 %) aerosol,spray 1 spray intranasal BID PRN (Reason: Allergy Symptoms) RF: 0 Stand-Alone Forms: [facility] Discharge Orders: Discharge Order (Routine); Ordered 12/28/18 Ordered By: Trish Chapa Admission Data Admit Date/Time: 12/26/18 23:58 Attending Provider: Trish Chapa Admit Provider: Edmund Matthews Primary Care Provider: Clark Morales Other Providers: Edmund Matthews ; Manolo Marc Service: Medical Other Interventions: Discharge Summary Assessment (RN) Last Done: 12/28/18 11:33 DC Date/Time DO NOT enter until pt leaves facility: 12/28/18 17:17
== END 2018-12-28 17:17 | disposition home or self-care (01) | DRG 59 ==
LOC: ED 17:08 → 2S 23:58 → 2W 12-27 15:24

== ENCOUNTER 2021-12-21 12:00 | Inpatient (IN) ==
[2021-12-21] MEDS ORDERED: SODIUM CHLORIDE 0.9% 1000ML 1,000 ML IV ONE (12:07)
[2021-12-21] MEDS ORDERED: ONDANSETRON INJ 2 MG/ML 2 ML VIAL IV STA (12:30)
[2021-12-21] MEDS ORDERED: PANTOprazole 40 MG in SYRINGE 0 ML IV ONE ×2 (12:30→15:03)
[2021-12-21] MEDS ORDERED: FAMOTIDINE 20MG IV PUSH 20 MG/5 ML SYR IV STA (12:30)
[2021-12-21 12:50] LABS: Basophils # (auto) 0.03 K/uL (0-0.2); Basophils % (auto) 0.6 %; Eosinophils # (auto) 0.05 K/uL (0-0.50); Eosinophils % (auto) 0.9 %; Hematocrit (blood only) 30.5 % (34.1-44.9); Hemoglobin 10.3 g/dl (12.0-16.0); Immature Granulocytes # (auto) 0.02 K/uL (0.00-0.02); Immature Granulocytes % (auto) 0.4 %; Lymphocytes % (auto) 15.2 %; Mean Corpuscular Hemoglobin 35.3 pg (25.0-34.0); Mean Corpuscular Hgb Conc 33.8 g/dL (32.0-36.0); Mean Corpuscular Volume 104.5 fL (80.0-100.0); Mean Platelet Volume 10.3 fL (9.4-12.3); Monocytes # (auto) 0.82 K/uL (0.24-0.82); Monocytes % (auto) 15.5 %; Neutrophils # (auto) 3.56 K/uL (1.4-6.5); Neutrophils % (auto) 67.4 %; Platelet Count 185 K/uL (130-400); RDW Standard Deviation 49.2 fL (36.4-46.3); Red Blood Count 2.92 M/uL (3.93-5.22); White Blood Count 5.28 K/ul (4.8-10.8)
[2021-12-21 12:56] LABS: Appearance Urine Clear (Clear); Bacteria Urine Automated Negative (Negative); Bilirubin Urine Negative (Negative); Blood Urine Negative (Negative); Cast Urine Automated 0 /lpf (0-5); Color Urine Orange; Epithelial Cell Urine Auto 20-30 /lpf (0-5); Glucose Urine UA Negative (Negative); Ketones Urine Trace (Negative); Leukocyte Esterase Urine 3+ (Negative); Nitrite Urine Negative (Negative); Protein Urine Negative (Negative); RBC Urine Automated 0-4 /hpf (0-4); Specific Gravity Urine 1.015 (1.000-1.030); Urobilinogen Urine Positive (Negative); WBC Urine Automated >30 /hpf (0-5)
[2021-12-21 13:02] LABS: INR 1.1 (0.9-1.1); Prothrombin Time 11.4 Seconds (9.0-12.0)
[2021-12-21 13:16] LABS: Pregnancy Test, Serum Negative (Negative)
[2021-12-21 13:17] LABS: Alanine Aminotransferase 33 U/L (7-52); Albumin Globulin Ratio 1.4 (0.9-2); Albumin Level 3.4 gm/dl (3.4-5.0); Alkaline Phosphatase 170 U/L (34-104); Anion Gap 8 (3-11); Aspartate Aminotransferase 41 U/L (13-39); Bilirubin,Total 2.3 mg/dl (0.2-1.0); Blood Urea Nitrogen 9 mg/dl (6-23); Calcium 8.7 mg/dl (8.5-10.1); Carbon Dioxide 22 mmol/L (21-32); Chloride 105 mmol/L (98-107); Creatinine Clr Calc Pharmacy 221.2 ml/min; Est GFR (African American) > 150.0 ml/min; Est GFR (Non-African American) 132.6 ml/min; Globulin 2.4 gm/dl (2.5-4.0); Glucose 99 mg/dl (70-99(Fasting)); Lipase 18 U/L (11-82); Magnesium 1.9 mg/dl (1.7-2.4); Phosphorus 3.7 mg/dl (2.5-4.9); Sodium 135 mmol/L (136-145); Total Protein 5.8 gm/dl (6.0-8.3)
--- NOTE | 2021-12-21 13:30 | Emergency Department Note ---
Impression & Plan UGIB (upper gastrointestinal bleed), Melena, History of gastric bypass, Alcohol use ED Provider Note NAME: ROBB ROCHA AGE: 31 SEX: F ARRIVES VIA: Ambulance INFORMANT: Patient ED PROVIDER(S): Olvin Miranda MD CHIEF COMPLAINT: Abdominal pain, black stool PLAN: Disposition: Admit MEDICAL DECISION MAKING: The patient is a pleasant 31-year-old woman with a past medical history of gastric bypass, PUD, regular alcohol use who presents to the emergency department for evaluation of nausea and black stool that developed today with several episodes of loose black stool. Patient reports she does drink alcohol at least every other day and up to 6 drinks at a time. She denies drinking alcohol yesterday. She denies any history of alcohol withdrawal and has gone a week or more recently without any alcohol and without withdrawal symptoms. She denies any fevers, chills, cough, congestion, urinary symptoms. On arrival, the patient is in no distress, afebrile stable vital signs. She appears clinically dry. She has mild epigastric discomfort without discrete tenderness. Rectal exam demonstrates black/melanotic stool that is Hemoccult positive. EKG without overt acute ischemia. CXR negative for acute cardiopulmonary process. WBC and platelets within normal limits. H/H 10.3/30.5 decreased from 13.9/40 and May 2019 without recent values for comparison. BUN is not elevated. total bilirubin 2.3 and AST 41 LFTs otherwise unremarkable. Lipase not elevated. hCG was negative. UA appears contaminated and the patient denies any urinary symptoms. Medical hold is negative. COVID-19 RNA, REBEKAH test was negative. UA appears contaminated. CT abd/pelvis demonstrates atrophy about the region of gastric bypass. No evidence of dehiscence per enteric contrast. Question of portal hypertension. Repeat with IV fluids, IV famotidine, IV Protonix drip. Give active melena patient agrees with plan for admission. Case was discussed with Fausto Bingham CRNP. Appreciate consultation. Case was discussed with Manda Lambert PAC with Dr. Starks, [facility], who will evaluate the patient for admission. Triage Nursing notes reviewed and agree them. Prior medical records reviewed Vital Signs: reviewed and remarkable for tachycardia. Differential diagnosis: Diverticulosis, AVM, coagulopathy, colitis, inflammatory bowel disease, malignancy, Archana-Hansen tear, esophagitis, peptic ulcer disease, variceal bleed, gastritis, epistaxis, fissure, hemorrhoids, as well as other pathologies. ER treatment provided: See below. Diagnostics interpreted by me: ECG: Sinus tachycardia, 107 bpm, no ectopy, no overt ST elevation or depression, QTC 461, QRS 70. Cardiac Monitoring: An order for continuous cardiac monitoring was placed and demonstrated Sinus tachycardia, 107 bpm, no ectopy. Laboratory studies: See below Imaging studies: See below Consultation(s): Neha Samaniego, Fausto GI, SAJAN. Manda Lambert PAC with Dr. Starks, [facility] hospitalist HPI: The patient is a pleasant 31-year-old woman with a past medical history of gastric bypass, PUD, regular alcohol use who presents to the emergency department for evaluation of nausea and black stool that developed today with several episodes of loose black stool. Patient reports she does drink alcohol at least every other day and up to 6 drinks at a time. She denies drinking alcohol yesterday. She denies any history of alcohol withdrawal and has gone a week or more recently without any alcohol and without withdrawal symptoms. She denies any fevers, chills, cough, congestion, urinary symptoms. ROS: See above HPI for pertinent positives & negatives. A total of 10 systems reviewed and were otherwise negative. VITALS:See Below PHYSICAL EXAMINATION: GENERAL: Awake, alert, well-appearing, in no distress, BMI 35.5. HENT: Normocephalic, atraumatic. Oropharynx with dry mucous membranes and otherwise unremarkable. EYES: Normal conjunctiva. Sclera non-icteric. NECK: Supple. No nuchal rigidity. FROM. No JVD. RESPIRATORY: Clear to auscultation. CARDIAC: Regular rate, normal rhythm. Extremities warm and well perfused. Pulses equal. ABDOMEN: Soft, non-distended. No tenderness to palpation. No rebound or guarding. No masses. RECTAL: Melena, Hemoccult positive. MUSCULOSKELETAL: Chest examination reveals no tenderness. The back is symmetrical on inspection without obvious abnormality. There is no CVA tenderness to palpation. No joint edema. LOWER EXTREMITIES: Calves are equal size bilaterally and non-tender. No edema. No discoloration. NEURO: Normal sensorium. No sensory or motor deficits noted. SKIN: No rash or jaundice noted. Olvin Miranda MD Past Med/Surg History Medical History Asthma exacerbation Depression Elevated uric acid in blood History of deep vein thrombosis History of multiple sclerosis Hx of peptic ulcer Iron deficiency anemia Migraine Patellofemoral dysfunction of right knee Postgastric surgery syndrome Surgical History Gastric bypass status for obesity History of insertion of tunneled central venous catheter (CVC) with port History of liver biopsy S/P cholecystectomy S/P surgery on nasal septum Family History Other Diabetes Hypertension Social History Smoking Status: Never smoker Hx Alcohol Use: Yes Alcohol type: beer Alcohol type Comment: 6 beers approx every other day Hx Substance Use: No Preferred Language: Czech Communication Ability: Effective Brand Communications Manager Required: No Beliefs That Will Affect Care: None marital status: Single Current Living Situation: Family current occupational status: unemployed and disabled current occupation: disabled 2/2 to MS dx at 18 Feels Safe at Home: Yes Safety Concerns: Feels Safe At This Time Assistive Devices: None Allergies Allergies Allergy/AdvReac Type Severity Reaction Status Date / Time Sulfa (Sulfonamide Allergy Severe Hives Verified 08/18/20 19:15 Antibiotics) Cephalosporins Allergy Intermediate Hives Verified 08/18/20 19:15 hydrocodone Allergy Intermediate Itching Verified 08/18/20 19:15 methocarbamol Allergy Mild Rash Verified 08/18/20 19:15 clindamycin AdvReac Intermediate Heartburn Verified 08/18/20 19:15 Home Meds Home Medications Medication Instructions Recorded Confirmed albuterol sulfate 2.5 mg/3 mL 2.5 mg inhalation Q4H PRN Wheezing 12/26/18 12/21/21 (0.083 %) solution for nebulization albuterol sulfate 90 mcg/actuation 2 puff inhalation Q4H PRN Wheezing 12/26/18 12/21/21 aerosol inhaler (ProAir HFA) amitriptyline 100 mg tablet 100 mg PO HS 12/26/18 12/21/21 azelastine 137 mcg (0.1 %) nasal 1 spray intranasal BID PRN Allergy 12/26/18 0 12/21/21 spray aerosol Symptoms budesonide 32 mcg/actuation nasal 1 spray intranasal BID PRN Allergy 12/26/18 12/21/21 spray Symptoms cholecalciferol (vitamin D3) 125 5,000 unit PO DAILY 12/26/18 12/21/21 mcg (5,000 unit) tablet (Vitamin D3) cholecalciferol (vitamin D3) 25 1,000 unit PO DAILY 12/26/18 12/21/21 mcg (1,000 unit) capsule (Vitamin D3) cranberry 500 mg capsule 500 mg PO DAILY 12/26/18 12/21/21 cyanocobalamin (vitamin B-12) 1,000 mcg IM MONTHLY 12/26/18 12/21/21 1,000 mcg/mL injection solution diphenhydramine 25 1 tab PO TID PRN Itching 12/26/18 12/21/21 mg-acetaminophen 500 mg tablet (Tylenol PM Extra Strength) fexofenadine 180 mg tablet 180 mg PO DAILY PRN Allergy 12/26/18 12/21/21 Symptoms hydroxyzine HCl 10 mg tablet 10 mg PO HS PRN Anxiety 12/26/18 12/21/21 medroxyprogesterone 150 mg/mL 150 mg IM .[id number] 12/26/18 12/21/21 intramuscular suspension ocrelizumab 30 mg/mL intravenous 300 mg IV .[id number] 12/26/18 12/21/21 solution (Ocrevus) omeprazole 40 mg capsule,delayed 40 mg PO BID 12/26/18 12/21/21 release promethazine 25 mg tablet 25 mg PO Q6H PRN Nausea or Vomiting 12/26/18 12/21/21 rizatriptan 10 mg tablet 10 mg PO DIRECTED PRN Headache 12/26/18 12/21/21 topiramate 50 mg tablet 50 mg PO BID 12/26/18 12/21/21 venlafaxine 50 mg tablet 50 mg PO BID 12/26/18 12/21/21 famotidine 20 mg tablet 20 mg PO BID 05/06/19 12/21/21 Results & Data (ED) Vital Signs Vital Signs - 24 hr 12/21/21 12:05 12/21/21 12:09 12/21/21 13:04 Temperature 37 C Temperature Source Oral Pulse Rate 103 H Pulse Rate [Finger] 105 H Respiratory Rate 18 18 Blood Pressure 131/97 Blood Pressure [Left Arm] 125/70 Blood Pressure Mean 108 Blood Pressure Mean [Left Arm] 88 Pulse Oximetry 100 100 99 Oxygen Delivery Method Room Air Room Air Room Air Sepsis Recent Fever Within 48 Hours No Sepsis New/Unexplained Change in Mental Status No Sepsis Action Taken by Nursing No Action Required 12/21/21 14:37 Temperature Temperature Source Pulse Rate Pulse Rate [Finger] 97 H Respiratory Rate 20 Blood Pressure Blood Pressure [Left Arm] 125/78 Blood Pressure Mean Blood Pressure Mean [Left Arm] 93 Pulse Oximetry 99 Oxygen Delivery Method Sepsis Recent Fever Within 48 Hours Sepsis New/Unexplained Change in Mental Status Sepsis Action Taken by Nursing Laboratory Data Attestation: I reviewed the patient's lab results. Result diagrams: 12/21/21 18:47 12/21/21 12:30 Lab Results 12/21/21 12/21/21 12/21/21 Range/Units 12:30 12:30 12:30 WBC 5.28 (4.8-10.8) K/ul RBC 2.92 L (3.93-5.22) M/uL Hgb 10.3 L (12.0-16.0) g/dl Hct 30.5 L (34.1-44.9) % MCV 104.5 H (80.0-100.0) fL MCH 35.3 H (25.0-34.0) pg MCHC 33.8 (32.0-36.0) g/dL RDW Std Deviation 49.2 H (36.4-46.3) fL RDW Coeff of [place] 13.0 (11.5-14.5) % Plt Count 185 (130-400) K/uL MPV 10.3 (9.4-12.3) fL Immature Gran % (Auto) 0.4 % Neut % (Auto) 67.4 % Lymph % (Auto) 15.2 % Edgar % (Auto) 15.5 % Eos % (Auto) 0.9 % Baso % (Auto) 0.6 % Neut # (Auto) 3.56 (1.4-6.5) K/uL Lymph # (Auto) 0.80 L (1.2-3.4) K/uL Edgar # (Auto) 0.82 (0.24-0.82) K/uL Eos # (Auto) 0.05 (0-0.50) K/uL Baso # (Auto) 0.03 (0-0.2) K/uL Immature Gran # (Auto) 0.02 (0.00-0.02) K/uL PT (9.0-12.0) Seconds INR (0.9-1.1) Sodium 135 L (136-145) mmol/L Potassium 4.0 (3.5-5.1) mmol/L Chloride 105 (98-107) mmol/L Carbon Dioxide 22 (21-32) mmol/L Anion Gap 8 (3-11) BUN 9 (6-23) mg/dl Creatinine 0.45 L (0.6-1.2) mg/dl Est Cr Clr Drug Dosing 221.2 ml/min Est GFR ( Amer) > 150.0 ml/min Est GFR (Non-Af Amer) 132.6 ml/min BUN/Creatinine Ratio 20.0 (10-20) Glucose 99 (70-99(Fasting)) mg/dl Calcium 8.7 (8.5-10.1) mg/dl Phosphorus 3.7 (2.5-4.9) mg/dl Magnesium 1.9 (1.7-2.4) mg/dl Total Bilirubin 2.3 H (0.2-1.0) mg/dl AST 41 H (13-39) U/L ALT 33 (7-52) U/L Alkaline Phosphatase 170 H (34-104) U/L Total Protein 5.8 L (6.0-8.3) gm/dl Albumin 3.4 (3.4-5.0) gm/dl Globulin 2.4 L (2.5-4.0) gm/dl Albumin/Globulin Ratio 1.4 (0.9-2) Lipase 18 (11-82) U/L HCG, Qual Negative (Negative) Urine Color Urine Appearance (Clear) Urine pH (4.5-7.5) Ur Specific [place] (1.000-1.030) Urine Protein (Negative) Urine Glucose (UA) (Negative) Urine Ketones (Negative) Urine Blood (Negative) Urine Nitrite (Negative) Urine Bilirubin (Negative) Urine Urobilinogen (Negative) Ur Leukocyte Esterase (Negative) Urine WBC (Auto) (0-5) /hpf Urine RBC (Auto) (0-4) /hpf U Hyaline Cast (Auto) (0-5) /lpf U Epithel Cells (Auto) (0-5) /lpf Urine Bacteria (Auto) (Negative) Ethyl Alcohol mg/dL (<10.0) mg/dl SARS-CoV-2, RNA, NAAT (NEGATIVE) 12/21/21 12/21/21 12/21/21 Range/Units 12:30 12:30 12:30 WBC (4.8-10.8) K/ul RBC (3.93-5.22) M/uL Hgb (12.0-16.0) g/dl Hct (34.1-44.9) % MCV (80.0-100.0) fL MCH (25.0-34.0) pg MCHC (32.0-36.0) g/dL RDW Std Deviation (36.4-46.3) fL RDW Coeff of [place] (11.5-14.5) % Plt Count (130-400) K/uL MPV (9.4-12.3) fL Immature Gran % (Auto) % Neut % (Auto) % Lymph % (Auto) % Edgar % (Auto) % Eos % (Auto) % Baso % (Auto) % Neut # (Auto) (1.4-6.5) K/uL Lymph # (Auto) (1.2-3.4) K/uL Edgar # (Auto) (0.24-0.82) K/uL Eos # (Auto) (0-0.50) K/uL Baso # (Auto) (0-0.2) K/uL Immature Gran # (Auto) (0.00-0.02) K/uL PT 11.4 (9.0-12.0) Seconds INR 1.1 (0.9-1.1) Sodium (136-145) mmol/L Potassium (3.5-5.1) mmol/L Chloride (98-107) mmol/L Carbon Dioxide (21-32) mmol/L Anion Gap (3-11) BUN (6-23) mg/dl Creatinine (0.6-1.2) mg/dl Est Cr Clr Drug Dosing ml/min Est GFR ( Amer) ml/min Est GFR (Non-Af Amer) ml/min BUN/Creatinine Ratio (10-20) Glucose (70-99(Fasting)) mg/dl Calcium (8.5-10.1) mg/dl Phosphorus (2.5-4.9) mg/dl Magnesium (1.7-2.4) mg/dl Total Bilirubin (0.2-1.0) mg/dl AST (13-39) U/L ALT (7-52) U/L Alkaline Phosphatase (34-104) U/L Total Protein (6.0-8.3) gm/dl Albumin (3.4-5.0) gm/dl Globulin (2.5-4.0) gm/dl Albumin/Globulin Ratio (0.9-2) Lipase (11-82) U/L HCG, Qual (Negative) Urine Color [place] Urine Appearance Clear (Clear) Urine pH 8.0 H (4.5-7.5) Ur Specific [place] 1.015 (1.000-1.030) Urine Protein Negative (Negative) Urine Glucose (UA) Negative (Negative) Urine Ketones Trace H (Negative) Urine Blood Negative (Negative) Urine Nitrite Negative (Negative) Urine Bilirubin Negative (Negative) Urine Urobilinogen Positive H (Negative) Ur Leukocyte Esterase 3+ H (Negative) Urine WBC (Auto) >30 H (0-5) /hpf Urine RBC (Auto) 0-4 (0-4) /hpf U Hyaline Cast (Auto) 0 (0-5) /lpf U Epithel Cells (Auto) 20-30 H (0-5) /lpf Urine Bacteria (Auto) Negative (Negative) Ethyl Alcohol mg/dL < 10.0 (<10.0) mg/dl SARS-CoV-2, RNA, NAAT (NEGATIVE) 12/21/21 Range/Units 12:35 WBC (4.8-10.8) K/ul RBC (3.93-5.22) M/uL Hgb (12.0-16.0) g/dl Hct (34.1-44.9) % MCV (80.0-100.0) fL MCH (25.0-34.0) pg MCHC (32.0-36.0) g/dL RDW Std Deviation (36.4-46.3) fL RDW Coeff of [place] (11.5-14.5) % Plt Count (130-400) K/uL MPV (9.4-12.3) fL Immature Gran % (Auto) % Neut % (Auto) % Lymph % (Auto) % Edgar % (Auto) % Eos % (Auto) % Baso % (Auto) % Neut # (Auto) (1.4-6.5) K/uL Lymph # (Auto) (1.2-3.4) K/uL Edgar # (Auto) (0.24-0.82) K/uL Eos # (Auto) (0-0.50) K/uL Baso # (Auto) (0-0.2) K/uL Immature Gran # (Auto) (0.00-0.02) K/uL PT (9.0-12.0) Seconds INR (0.9-1.1) Sodium (136-145) mmol/L Potassium (3.5-5.1) mmol/L Chloride (98-107) mmol/L Carbon Dioxide (21-32) mmol/L Anion Gap (3-11) BUN (6-23) mg/dl Creatinine (0.6-1.2) mg/dl Est Cr Clr Drug Dosing ml/min Est GFR ( Amer) ml/min Est GFR (Non-Af Amer) ml/min BUN/Creatinine Ratio (10-20) Glucose (70-99(Fasting)) mg/dl Calcium (8.5-10.1) mg/dl Phosphorus (2.5-4.9) mg/dl Magnesium (1.7-2.4) mg/dl Total Bilirubin (0.2-1.0) mg/dl AST (13-39) U/L ALT (7-52) U/L Alkaline Phosphatase (34-104) U/L Total Protein (6.0-8.3) gm/dl Albumin (3.4-5.0) gm/dl Globulin (2.5-4.0) gm/dl Albumin/Globulin Ratio (0.9-2) Lipase (11-82) U/L HCG, Qual (Negative) Urine Color Urine Appearance (Clear) Urine pH (4.5-7.5) Ur Specific [place] (1.000-1.030) Urine Protein (Negative) Urine Glucose (UA) (Negative) Urine Ketones (Negative) Urine Blood (Negative) Urine Nitrite (Negative) Urine Bilirubin (Negative) Urine Urobilinogen (Negative) Ur Leukocyte Esterase (Negative) Urine WBC (Auto) (0-5) /hpf Urine RBC (Auto) (0-4) /hpf U Hyaline Cast (Auto) (0-5) /lpf U Epithel Cells (Auto) (0-5) /lpf Urine Bacteria (Auto) (Negative) Ethyl Alcohol mg/dL (<10.0) mg/dl SARS-CoV-2, RNA, NAAT NEGATIVE (NEGATIVE) Administered Medications Amitriptyline HCl (Amitriptyline Hcl 100 Mg Tab) 100 mg PO HS FRANCISCA Stop: 01/20/22 20:59 Last Admin: 12/21/21 20:20 Dose: 100 mg Documented By: TMB Famotidine (Famotidine 20 Mg Tab) 20 mg PO BID FRANCISCA Stop: 01/20/22 20:59 Last Admin: 12/21/21 20:20 Dose: 20 mg Documented By: TMB Folic Acid (Folic Acid 1 Mg Tab) 1 mg PO QAM FRANCISCA Stop: 01/20/22 18:19 Last Admin: 12/21/21 20:19 Dose: 1 mg Documented By: TMB Hydroxyzine HCl (Hydroxyzine Hcl 10 Mg Tab) 10 mg PO HS PRN PRN Reason: Anxiety Stop: 01/20/22 18:19 Last Admin: 12/22/21 00:06 Dose: 10 mg Documented By: TMB Pantoprazole Sodium 40 mg/ (Dextrose) 100 mls @ 20 mls/hr IV Q5H FRANCISCA Stop: 01/20/22 15:14 Last Admin: 12/22/21 01:15 Dose: 8 mg/hr, 20 mls/hr Documented By: Infusion: 12/22/21 01:15 Dose: 8 mg/hr, 20 mls/hr Documented By: Admin: 12/21/21 20:19 Dose: 8 mg/hr, 20 mls/hr Documented By: Infusion: 12/21/21 20:17 Dose: 8 mg/hr, 20 mls/hr Documented By: Admin: 12/21/21 15:17 Dose: 8 mg/hr, 20 mls/hr Documented By: NRB Sodium Chloride (Nss 1000ml) 1,000 mls @ 80 mls/hr IV .[id number] FRANCISCA Stop: 12/22/21 12:29 Last Admin: 12/22/21 00:06 Dose: 80 mls/hr Documented By: CARISSA Thiamine HCl (Thiamine Hcl 100 Mg Tab) 100 mg PO QAM FRANCISCA Stop: 01/20/22 18:19 Last Admin: 12/21/21 20:19 Dose: 100 mg Documented By: CARISSA Topiramate (Topiramate 50 Mg Tab) 50 mg PO BID FRANCISCA Stop: 01/20/22 20:59 Last Admin: 12/21/21 20:20 Dose: 50 mg Documented By: CARISSA Venlafaxine HCl (Venlafaxine Hcl 50 Mg Tab) 50 mg PO BID FRANCISCA Stop: 01/20/22 20:59 Last Admin: 12/21/21 20:20 Dose: 50 mg Documented By: CARISSA Discontinued Medications Sodium Chloride (Nss 1000ml) 1,000 mls @ 999 mls/hr IV .[id number] ONE Stop: 12/21/21 13:07 Last Infusion: 12/21/21 14:32 Dose: 0 mls/hr Documented By: Admin: 12/21/21 12:58 Dose: 999 mls/hr Documented By: MIRACLE Pantoprazole Sodium 40 mg/ (Syringe) 10 mls @ 5 mls/min IV NOW ONE Stop: 12/21/21 12:31 Last Admin: 12/21/21 13:25 Dose: 5 mls/min Documented By: BISI Famotidine (Pepcid 20mg Iv Push) 20 mg in 5 mls @ 2.5 mls/min IV NOW STA Stop: 12/21/21 12:31 Last Admin: 12/21/21 12:57 Dose: 2.5 mls/min Documented By: MIRACLE Pantoprazole Sodium 40 mg/ (Syringe) 10 mls @ 5 mls/min IV NOW ONE Stop: 12/21/21 15:04 Last Admin: 12/21/21 18:22 Dose: Not Given Documented By: DARRYN Ioversol (Optiray 320 100ml) 85 ml IV ONCE ONE Stop: 12/21/21 13:51 Last Admin: 12/21/21 13:45 Dose: 85 ml Documented By: SEUN Ondansetron HCl (Ondansetron Inj 2 Mg/Ml 2 Ml Vial) 4 mg IV NOW STA Stop: 12/21/21 12:31 Last Admin: 12/21/21 12:57 Dose: 4 mg Documented By: MIRACLE Imaging Data Radiologist's Impression: Abdomen/Pelvis CT 12/21/21 12:30 CT abd pelvis oral and IV con CLINICAL HISTORY: melena, eval gastric bypass TECHNIQUE: Helical axial images of the abdomen and pelvis were obtained and displayed. Automated dose lowering techniques and/or adjustment according to patient size were utilized for this exam. This exam was performed with intravenous contrast. CT DOSE: 874.02 mGy.cm COMPARISON: Comparison is made to CT abdomen pelvis 01/22/2015 FINDINGS: Lower chest: No acute abnormality Liver: Hepatic steatosis and hepatomegaly is noted. Gallbladder and biliary tree: Patient is status post cholecystectomy. No intra- or extrahepatic biliary ductal dilation. Pancreas: Fatty replacement of the pancreas is seen. Spleen: Unremarkable. Adrenals: Unremarkable. Kidneys and ureters: Unremarkable. Bladder: Unremarkable. Reproductive organs: Unremarkable. Bowel: Unremarkable appearance of the bowel. The appendix is normal. Patient is status post gastric bypass surgery. There is a small hiatal hernia. Mild gastric wall thickening and fat stranding is noted. No enteric contrast is seen in the e xcluded stomach. Duodenal diverticulum is seen. Lymph nodes Retroperitoneal: Unremarkable. Pelvic: Unremarkable. Mesenteric: Unremarkable. Peritoneum: Normal. Vessels: Collaterals are noted in the abdominal wall. The portal vein is unremarkable. Abdominal wall: Unremarkable. Bones: Minimal degenerative changes are seen without evidence of acute abnormality. IMPRESSION: 1. Wall thickening and fat stranding is seen about the region of the gastric bypass compatible with infectious/inflammatory process. No enteric contrast in the excluded stomach to suggest dehiscence. 2. Hepatic steatosis hepatomegaly. Interval development of venous collaterals in the abdominal wall which may reflect portal hypertension. ACT 112: Negative or not required by law. Electronically signed by: Kingsley Jacobs M.D. 12/21/2021 2:11 PM Discharge Plan Visit Data Chief Complaint: Abdominal Pain Stated Complaint: BLACK TARRY STOOL/NAUSEA ED Provider: Olvin Miranda Discharge Problem: UGIB (upper gastrointestinal bleed), Melena, History of gastric bypass, Alcohol use Patient Disposition: Home - Self-Care Discharge Instructions Interventions: ED Discharge Assessment Last Done: 12/21/21 17:54
[2021-12-21] MEDS ORDERED: OPTIRAY 320 100ml IV ONE (13:50)
--- NOTE | 2021-12-21 14:12 | CT Scan Report ---
CT abd pelvis oral and IV con CLINICAL HISTORY: melena, eval gastric bypass TECHNIQUE: Helical axial images of the abdomen and pelvis were obtained and displayed. Automated dose lowering techniques and/or adjustment according to patient size were utilized for this exam. This e xam was performed with intravenous contrast. CT DOSE: 874.02 mGy.cm COMPARISON: Comparison is made to CT abdomen pelvis 01/22/2015 FINDINGS: Lower chest: No acute abnormality Liver: Hepatic steatosis and hepatomegaly is noted. Gallbladder and biliary tree: Patient is status post cholecystectomy. No intra- or extrahepatic bilia ry ductal dilation. Pancreas: Fatty replacement of the pancreas is seen. Spleen: Unremarkable. Adrenals: Unremarkable. Kidneys and ureters: Unremarkable. Bladder: Unremarkable. Reproductive organs: Unremarkable. Bowel: Unremarkable appearance of the bowel. The appendix is normal. Patient is status post gastric b ypass surgery. There is a small hiatal hernia. Mild gastric wall thickening and fat stranding is note d. No enteric contrast is seen in the excluded stomach. Duodenal diverticulum is seen. Lymph nodes Retroperitoneal: Unremarkable. Pelvic: Unremarkable. Mesenteric: Unremarkable. Peritoneum: Normal. Vessels: Collaterals are noted in the abdominal wall. The portal vein is unremarkable. Abdominal wall: Unremarkable. Bones: Minimal degenerative changes are seen without evidence of acute abnormality. IMPRESSION: 1. Wall thickening and fat stranding is seen about the region of the gastric bypass compatible with infectious/inflammatory process. No enteric contrast in the excluded stomach to suggest dehiscence. 2. Hepatic steatosis hepatomegaly. Interval development of venous collaterals in the abdominal wall which may reflect portal hypertension. ACT 112: Negative or not required by law. Electronically signed by: Kingsley Jacobs M.D. 12/21/2021 2:11 PM
--- NOTE | 2021-12-21 15:08 | Gastrointestinal Consultation ---
Date of Consultation December 21, 2021 Assessment & Plan (1) Gastric bypass status for obesity: 31 year old female with history of MS, anxiety/depression, asthma, RYGB, GEJ stricture presenting to ED with discomfort, nausea x 1 week and melena x 1 day. HGB 10 from baseline 13 w/ normal BUN Hemodynamically stable w/ BP 125/78 Can have clear liquids today NPO after midnight EGD in the AM for evaluation of anemia, black stools IV PPI bolus, drip Anti-emetics PRN ETOH withdrawal protocol as she notes at least 6 drinks last night and frequent ETOH use No NSAIDs Recommend ETOH cessation Thank you for allowing us to participate in the care of this patient. Please call with any acute changes, questions or concerns. Please see addendum below with additional recommendation from my supervising physician. Supervising Physician Co-Signing Physician Notes I performed a history and physical examination of the patient today, including specifically on physical exam - soft abdomen. I have discussed the patient's management with the advanced practitioner. Please refer to the nurse practitioner's note for the documented findings and plan of care. EGD tomorrow. History of Present Illness Reason for Consultation: melena Requesting Physician: Ruben Attending Physician: Ruben History of Present Illness 31 year old female with history of MS, anxiety/depression, asthma, RYGB, GEJ stricture others below presenting to the ED with abd discomfort, nausea and dark stools - GI asked to evaluate for anemia and melena. Pt was seen and evaluated, chart reviewed. Notes that for about 1-2 weeks, she has had worse GERD, epigastric discomfort, burning and nausea. No vomiting. This AM woke up with urge to move her BM and noted dark, tarry large volume stool. She notes she felt weak, tired and dizzy and came to the ED Denies NSAIDs No AC + ETOH use, suggests at least 6 drinks last evening EGD 2019: Normal esophagus. - Gastric bypass with a normal-sized pouch and intact staple line. Gastrojejunal anastomosis characterized by healthy appearing mucosa. - Normal examined jejunum. - No ulcers seen. - No stricture seen. - No specimens collected. Allergies Allergy/AdvReac Type Severity Reaction Status Date / Time Sulfa (Sulfonamide Allergy Severe Hives Verified 08/18/20 19:15 Antibiotics) Cephalosporins Allergy Intermediate Hives Verified 08/18/20 19:15 hydrocodone Allergy Intermediate Itching Verified 08/18/20 19:15 methocarbamol Allergy Mild Rash Verified 08/18/20 19:15 clindamycin AdvReac Intermediate Heartburn Verified 08/18/20 19:15 Home Medications Medication Instructions Recorded Confirmed Type albuterol sulfate 2.5 mg/3 mL 2.5 mg inhalation Q4H PRN Wheezing 12/26/18 12/21/21 History (0.083 %) solution for nebulization albuterol sulfate 90 mcg/actuation 2 puff inhalation Q4H PRN Wheezing 12/26/18 12/21/21 History aerosol inhaler (ProAir HFA) amitriptyline 100 mg tablet 100 mg PO HS 12/26/18 12/21/21 History azelastine 137 mcg (0.1 %) nasal 1 spray intranasal BID PRN Allergy 12/26/18 12/21/21 History spray aerosol Symptoms budesonide 32 mcg/actuation nasal 1 spray intranasal BID PRN Allergy 12/26/18 12/21/21 History spray Symptoms cholecalciferol (vitamin D3) 125 5,000 unit PO DAILY 12/26/18 12/21/21 History mcg (5,000 unit) tablet (Vitamin D3) cholecalciferol (vitamin D3) 25 1,000 unit PO DAILY 12/26/18 12/21/21 History mcg (1,000 unit) capsule (Vitamin D3) cranberry 500 mg capsule 500 mg PO DAILY 12/26/18 12/21/21 History cyanocobalamin (vitamin B-12) 1,000 mcg IM MONTHLY 12/26/18 12/21/21 History 1,000 mcg/mL injection solution diphenhydramine 25 1 tab PO TID PRN Itching 12/26/18 12/21/21 History mg-acetaminophen 500 mg tablet (Tylenol PM Extra Strength) fexofenadine 180 mg tablet 180 mg PO DAILY PRN Allergy 12/26/18 12/21/21 History Symptoms hydroxyzine HCl 10 mg tablet 10 mg PO HS PRN Anxiety 12/26/18 12/21/21 History medroxyprogesterone 150 mg/mL 150 mg IM .[id number] 12/26/18 12/21/21 History intramuscular suspension ocrelizumab 30 mg/mL intravenous 300 mg IV .[id number] 12/26/18 12/21/21 History solution (Ocrevus) omeprazole 40 mg capsule,delayed 40 mg PO BID 12/26/18 12/21/21 History release promethazine 25 mg tablet 25 mg PO Q6H PRN Nausea or Vomiting 12/26/18 12/21/21 History rizatriptan 10 mg tablet 10 mg PO DIRECTED PRN Headache 12/26/18 12/21/21 History topiramate 50 mg tablet 50 mg PO BID 12/26/18 12/21/21 History venlafaxine 50 mg tablet 50 mg PO BID 12/26/18 12/21/21 History famotidine 20 mg tablet 20 mg PO BID 05/06/19 12/21/21 History Patient History Medical History Asthma exacerbation Elevated uric acid in blood History of deep vein thrombosis History of multiple sclerosis Patellofemoral dysfunction of right knee Surgical History Gastric bypass status for obesity S/P cholecystectomy S/P surgery on nasal septum Family History Other No pertinent family history in first degree relatives Social History Smoking Status: Never smoker Hx Alcohol Use: No Hx Substance Use: No Preferred Language: Portuguese Communication Ability: Effective Forensic Examiner Required: No Beliefs That Will Affect Care: None marital status: Single Current Living Situation: Parent current occupational status: unemployed Feels Safe at Home: Yes Assistive Devices: Glasses Review of Systems Review of Systems: All systems reviewed & are unremarkable except as noted in HPI & below Physical Exam Constitutional: WD/WN, vitals as above Neck: trachea midline Respiratory: normal respiratory effort, lungs clear to auscultation Cardiovascular: Rate/Rhythm: regular rate and regular rhythm Gastrointestinal (Abdomen): normal bowel sounds, soft, nontender, no hepatosplenomegaly Skin: pale Results & Data ([facility]) Vital Signs (Past 12 Hours) Vital Signs Temp Pulse Pulse Resp BP BP Pulse Ox 12/21/21 14:37 97 H 20 125/78 99 12/21/21 13:04 105 H 18 125/70 99 12/21/21 12:09 100 12/21/21 12:05 37 C 103 H 18 131/97 100 O2 Del Method 12/21/21 14:37 12/21/21 13:04 Room Air 12/21/21 12:09 Room Air 12/21/21 12:05 Room Air Laboratory Results 12/21/21 12/21/21 12/21/21 Range/Units 12:35 12:30 12:30 WBC (4.8-10.8) K/ul RBC (3.93-5.22) M/uL Hgb (12.0-16.0) g/dl Hct (34.1-44.9) % MCV (80.0-100.0) fL MCH (25.0-34.0) pg MCHC (32.0-36.0) g/dL RDW Std Deviation (36.4-46.3) fL RDW Coeff of [place] (11.5-14.5) % Plt Count (130-400) K/uL MPV (9.4-12.3) fL Immature Gran % (Auto) % Neut % (Auto) % Lymph % (Auto) % [place] % (Auto) % Eos % (Auto) % Baso % (Auto) % Neut # (Auto) (1.4-6.5) K/uL Lymph # (Auto) (1.2-3.4) K/uL [place] # (Auto) (0.24-0.82) K/uL Eos # (Auto) (0-0.50) K/uL Baso # (Auto) (0-0.2) K/uL Immature Gran # (Auto) (0.00-0.02) K/uL PT 11.4 (9.0-12.0) Seconds INR 1.1 (0.9-1.1) Sodium (136-145) mmol/L Potassium (3.5-5.1) mmol/L Chloride (98-107) mmol/L Carbon Dioxide (21-32) mmol/L Anion Gap (3-11) BUN (6-23) mg/dl Creatinine (0.6-1.2) mg/dl Est Cr Clr Drug Dosing ml/min Est GFR ( Amer) ml/min Est GFR (Non-Af Amer) ml/min BUN/Creatinine Ratio (10-20) Glucose (70-99(Fasting)) mg/dl Calcium (8.5-10.1) mg/dl Phosphorus (2.5-4.9) mg/dl Magnesium (1.7-2.4) mg/dl Total Bilirubin (0.2-1.0) mg/dl AST (13-39) U/L ALT (7-52) U/L Alkaline Phosphatase (34-104) U/L Total Protein (6.0-8.3) gm/dl Albumin (3.4-5.0) gm/dl Globulin (2.5-4.0) gm/dl Albumin/Globulin Ratio (0.9-2) Lipase (11-82) U/L HCG, Qual (Negative) Urine Color [place] Urine Appearance Clear (Clear) Urine pH 8.0 H (4.5-7.5) Ur Specific [place] 1.015 (1.000-1.030) Urine Protein Negative (Negative) Urine Glucose (UA) Negative (Negative) Urine Ketones Trace H (Negative) Urine Blood Negative (Negative) Urine Nitrite Negative (Negative) Urine Bilirubin Negative (Negative) Urine Urobilinogen Positive H (Negative) Ur Leukocyte Esterase 3+ H (Negative) Urine WBC (Auto) >30 H (0-5) /hpf Urine RBC (Auto) 0-4 (0-4) /hpf U Hyaline Cast (Auto) 0 (0-5) /lpf U Epithel Cells (Auto) 20-30 H (0-5) /lpf Urine Bacteria (Auto) Negative (Negative) Ethyl Alcohol mg/dL (<10.0) mg/dl SARS-CoV-2, RNA, NAAT NEGATIVE (NEGATIVE) 12/21/21 12/21/21 12/21/21 Range/Units 12:30 12:30 12:30 WBC 5.28 (4.8-10.8) K/ul RBC 2.92 L (3.93-5.22) M/uL Hgb 10.3 L (12.0-16.0) g/dl Hct 30.5 L (34.1-44.9) % MCV 104.5 H (80.0-100.0) fL MCH 35.3 H (25.0-34.0) pg MCHC 33.8 (32.0-36.0) g/dL RDW Std Deviation 49.2 H (36.4-46.3) fL RDW Coeff of [place] 13.0 (11.5-14.5) % Plt Count 185 (130-400) K/uL MPV 10.3 (9.4-12.3) fL Immature Gran % (Auto) 0.4 % Neut % (Auto) 67.4 % Lymph % (Auto) 15.2 % [place] % (Auto) 15.5 % Eos % (Auto) 0.9 % Baso % (Auto) 0.6 % Neut # (Auto) 3.56 (1.4-6.5) K/uL Lymph # (Auto) 0.80 L (1.2-3.4) K/uL [place] # (Auto) 0.82 (0.24-0.82) K/uL Eos # (Auto) 0.05 (0-0.50) K/uL Baso # (Auto) 0.03 (0-0.2) K/uL Immature Gran # (Auto) 0.02 (0.00-0.02) K/uL PT (9.0-12.0) Seconds INR (0.9-1.1) Sodium 135 L (136-145) mmol/L Potassium 4.0 (3.5-5.1) mmol/L Chloride 105 (98-107) mmol/L Carbon Dioxide 22 (21-32) mmol/L Anion Gap 8 (3-11) BUN 9 (6-23) mg/dl Creatinine 0.45 L (0.6-1.2) mg/dl Est Cr Clr Drug Dosing 221.2 ml/min Est GFR ( Amer) > 150.0 ml/min Est GFR (Non-Af Amer) 132.6 ml/min BUN/Creatinine Ratio 20.0 (10-20) Glucose 99 (70-99(Fasting)) mg/dl Calcium 8.7 (8.5-10.1) mg/dl Phosphorus 3.7 (2.5-4.9) mg/dl Magnesium 1.9 (1.7-2.4) mg/dl Total Bilirubin 2.3 H (0.2-1.0) mg/dl AST 41 H (13-39) U/L ALT 33 (7-52) U/L Alkaline Phosphatase 170 H (34-104) U/L Total Protein 5.8 L (6.0-8.3) gm/dl Albumin 3.4 (3.4-5.0) gm/dl Globulin 2.4 L (2.5-4.0) gm/dl Albumin/Globulin Ratio 1.4 (0.9-2) Lipase 18 (11-82) U/L HCG, Qual (Negative) Urine Color Urine Appearance (Clear) Urine pH (4.5-7.5) Ur Specific [place] (1.000-1.030) Urine Protein (Negative) Urine Glucose (UA) (Negative) Urine Ketones (Negative) Urine Blood (Negative) Urine Nitrite (Negative) Urine Bilirubin (Negative) Urine Urobilinogen (Negative) Ur Leukocyte Esterase (Negative) Urine WBC (Auto) (0-5) /hpf Urine RBC (Auto) (0-4) /hpf U Hyaline Cast (Auto) (0-5) /lpf U Epithel Cells (Auto) (0-5) /lpf Urine Bacteria (Auto) (Negative) Ethyl Alcohol mg/dL < 10.0 (<10.0) mg/dl SARS-CoV-2, RNA, NAAT (NEGATIVE) 12/21/21 Range/Units 12:30 WBC (4.8-10.8) K/ul RBC (3.93-5.22) M/uL Hgb (12.0-16.0) g/dl Hct (34.1-44.9) % MCV (80.0-100.0) fL MCH (25.0-34.0) pg MCHC (32.0-36.0) g/dL RDW Std Deviation (36.4-46.3) fL RDW Coeff of [place] (11.5-14.5) % Plt Count (130-400) K/uL MPV (9.4-12.3) fL Immature Gran % (Auto) % Neut % (Auto) % Lymph % (Auto) % [place] % (Auto) % Eos % (Auto) % Baso % (Auto) % Neut # (Auto) (1.4-6.5) K/uL Lymph # (Auto) (1.2-3.4) K/uL [place] # (Auto) (0.24-0.82) K/uL Eos # (Auto) (0-0.50) K/uL Baso # (Auto) (0-0.2) K/uL Immature Gran # (Auto) (0.00-0.02) K/uL PT (9.0-12.0) Seconds INR (0.9-1.1) Sodium (136-145) mmol/L Potassium (3.5-5.1) mmol/L Chloride (98-107) mmol/L Carbon Dioxide (21-32) mmol/L Anion Gap (3-11) BUN (6-23) mg/dl Creatinine (0.6-1.2) mg/dl Est Cr Clr Drug Dosing ml/min Est GFR ( Amer) ml/min Est GFR (Non-Af Amer) ml/min BUN/Creatinine Ratio (10-20) Glucose (70-99(Fasting)) mg/dl Calcium (8.5-10.1) mg/dl Phosphorus (2.5-4.9) mg/dl Magnesium (1.7-2.4) mg/dl Total Bilirubin (0.2-1.0) mg/dl AST (13-39) U/L ALT (7-52) U/L Alkaline Phosphatase (34-104) U/L Total Protein (6.0-8.3) gm/dl Albumin (3.4-5.0) gm/dl Globulin (2.5-4.0) gm/dl Albumin/Globulin Ratio (0.9-2) Lipase (11-82) U/L HCG, Qual Negative (Negative) Urine Color Urine Appearance (Clear) Urine pH (4.5-7.5) Ur Specific [place] (1.000-1.030) Urine Protein (Negative) Urine Glucose (UA) (Negative) Urine Ketones (Negative) Urine Blood (Negative) Urine Nitrite (Negative) Urine Bilirubin (Negative) Urine Urobilinogen (Negative) Ur Leukocyte Esterase (Negative) Urine WBC (Auto) (0-5) /hpf Urine RBC (Auto) (0-4) /hpf U Hyaline Cast (Auto) (0-5) /lpf U Epithel Cells (Auto) (0-5) /lpf Urine Bacteria (Auto) (Negative) Ethyl Alcohol mg/dL (<10.0) mg/dl SARS-CoV-2, RNA, NAAT (NEGATIVE)
[2021-12-21] MEDS: PANTOprazole 40 MG in DEXTROSE 5% 100 ML IV SCH ×2 (15:17→20:19)
--- NOTE | 2021-12-21 15:25 | History & Physical Report ---
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 Presenting hgb 10.3, was 12.9 in September of 2021 C/o tarry stool and nausea hemodynamically stable w/o evidence of active bleed. Melena Anemia, known hx of iron def in setting of gastric by pass surgery, possible acute blood loss in setting of possible UGIB Possible UGIB hx of gastric bypass in 2008 [facility] hx of GEJ stricture admit to tele consult gastro - appreciate their input clear liquids tonight after pt has MRCP NPO after midnight, will give gentle IVF at midnight EGD tomorrow continue PPI gtt antiemetics prn recommend ETOH cessation No indication for antibiotics at this time per GI Elevated LFTS t bili 2.3, alp 170, ast 41 CT a/p show fatty liver findings hx of cholecystectomy acute hep panel ordered and MRCP by GI repeat LFT in a.m. Alcohol abuse pt drinks 6 beers every other day place on awss scale, prn ativan daily thiamine folic acid alcohol cessation advised [facility] via LACW port disabled chronic pain DVT ppx/Hx of DVT upper ext after vasc procedure: SCDS in setting of bleeding, not on blood thinner Dispo: PCU PCP: Kimberly Figueroa FULL CODE Pt was seen and examined in collaboration with Dr. Starks, please see addendum History of Present Illness Chief Complaint: Melena and nausea x 1 day. 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 She woke up this morning around 0630 to let dog out and felt nauseated and like her stomach was, "gurgling." She went to the bathroom and had a bowel movement and it was black and tarry. She talked to her mom and EMS was summoned. While waiting for ambulance she had RUQ pain. She rates pain about a 2/10. It is still there when she presses on it. Pain started after BM. Pain was nonradiating and described as stabbing initially. She does take a daily PPI, omeprazole 20mg bid, as well as famotidine. She denies any vomiting. She had normal bowel movements yesterday but was loose. Denies f/c/s, chest pain, sob, cough, URI sx, hematemesis, dysuria, increased urg/freq with urination and hematuria. She has hx of gastric bypass in 2008 at [facility]. She has prior hx of PUD in 2010 post gastric by pass. She also has hx of upper ext DVT after having a port placed. She does have a port in L chest wall due to infusions for hx of MS. She denies taking any NSAIDS, blood thinners or aspirin. She denies prior hx of hemorrhoids.Patient does drink alcohol approximately 6 beers every other day. In ED patient remained hemodynamically stable although she was mildly tachycardic. Lab work notable for hemoglobin 10.3 and 30.5, total bilirubin 2.3, AST 41, ALT 170 and urinalysis +3 leukocyte esterase but negative bacteria. CT abdomen pelvis revealed wall thickening and fat stranding about the region of the gastric bypass compatible with an infectious or inflammatory process. No enteric contrast in the excluded stomach to suggest dehiscence. Also noted was hepatic steatosis, hepatomegaly and interval development of venous collaterals in the abdominal wall which may reflect portal hypertension. She was started on IV Protonix bolus and drip as well as IV famotidine and IV fluid. She has had no further melena. Allergies Allergy/AdvReac Type Severity Reaction Status Date / Time Sulfa (Sulfonamide Allergy Severe Hives Verified 08/18/20 19:15 Antibiotics) Cephalosporins Allergy Intermediate Hives Verified 08/18/20 19:15 hydrocodone Allergy Intermediate Itching Verified 08/18/20 19:15 methocarbamol Allergy Mild Rash Verified 08/18/20 19:15 clindamycin AdvReac Intermediate Heartburn Verified 08/18/20 19:15 Home Medications Medication Instructions Recorded Confirmed Type albuterol sulfate 2.5 mg/3 mL 2.5 mg inhalation Q4H PRN Wheezing 12/26/18 12/21/21 History (0.083 %) solution for nebulization albuterol sulfate 90 mcg/actuation 2 puff inhalation Q4H PRN Wheezing 12/26/18 12/21/21 History aerosol inhaler (ProAir HFA) amitriptyline 100 mg tablet 100 mg PO HS 12/26/18 12/21/21 History azelastine 137 mcg (0.1 %) nasal 1 spray intranasal BID PRN Allergy 12/26/18 12/21/21 History spray aerosol Symptoms budesonide 32 mcg/actuation nasal 1 spray intranasal BID PRN Allergy 12/26/18 12/21/21 History spray Symptoms cholecalciferol (vitamin D3) 125 5,000 unit PO DAILY 12/26/18 12/21/21 History mcg (5,000 unit) tablet (Vitamin D3) cholecalciferol (vitamin D3) 25 1,000 unit PO DAILY 12/26/18 12/21/21 History mcg (1,000 unit) capsule (Vitamin D3) cranberry 500 mg capsule 500 mg PO DAILY 12/26/18 12/21/21 History cyanocobalamin (vitamin B-12) 1,000 mcg IM MONTHLY 12/26/18 12/21/21 History 1,000 mcg/mL injection solution diphenhydramine 25 1 tab PO TID PRN Itching 12/26/18 12/21/21 History mg-acetaminophen 500 mg tablet (Tylenol PM Extra Strength) fexofenadine 180 mg tablet 180 mg PO DAILY PRN Allergy 12/26/18 12/21/21 History Symptoms hydroxyzine HCl 10 mg tablet 10 mg PO HS PRN Anxiety 12/26/18 12/21/21 History medroxyprogesterone 150 mg/mL 150 mg IM .Q12W 12/26/18 12/21/21 History intramuscular suspension ocrelizumab 30 mg/mL intravenous 300 mg IV .[id number] 12/26/18 12/21/21 History solution (Ocrevus) omeprazole 40 mg capsule,delayed 40 mg PO BID 12/26/18 12/21/21 History release promethazine 25 mg tablet 25 mg PO Q6H PRN Nausea or Vomiting 12/26/18 12/21/21 History rizatriptan 10 mg tablet 10 mg PO DIRECTED PRN Headache 12/26/18 12/21/21 History topiramate 50 mg tablet 50 mg PO BID 12/26/18 12/21/21 History venlafaxine 50 mg tablet 50 mg PO BID 12/26/18 12/21/21 History famotidine 20 mg tablet 20 mg PO BID 05/06/19 12/21/21 History Past Med/Surg History Medical History (Updated 12/21/21 @ 16:05 by Manda Herrera PA-C) Asthma exacerbation Depression Elevated uric acid in blood History of deep vein thrombosis History of multiple sclerosis Hx of peptic ulcer Iron deficiency anemia Migraine Patellofemoral dysfunction of right knee Postgastric surgery syndrome Surgical History (Updated 12/21/21 @ 16:02 by Manda Herrera PA-C) Gastric bypass status for obesity History of insertion of tunneled central venous catheter (CVC) with port History of liver biopsy S/P cholecystectomy S/P surgery on nasal septum Family History Other Diabetes Hypertension Social History (Updated 12/21/21 @ 16:03 by Manda Herrera PA-C) Smoking Status: Never smoker Hx Alcohol Use: Yes Alcohol type: beer Alcohol type Comment: 6 beers approx every other day Hx Substance Use: No Preferred Language: Albanian Communication Ability: Effective Political Organizer Required: No Beliefs That Will Affect Care: None marital status: Single Current Living Situation: Family current occupational status: unemployed and disabled current occupation: disabled 2/2 to MS dx at 18 Feels Safe at Home: Yes Safety Concerns: Feels Safe At This Time Assistive Devices: None Review of Systems Review of Systems: All systems reviewed & are unremarkable except as noted in HPI & below Physical Exam Physical Exam: please refer to Dr. Starks addendum for physical exam findings. Results & Data Results & Data ([facility]) Vital Signs (Past 12 Hours) Vital Signs Temp Pulse Pulse Resp BP BP Pulse Ox 12/21/21 14:37 97 H 20 125/78 99 12/21/21 13:04 105 H 18 125/70 99 12/21/21 12:09 100 12/21/21 12:05 37 C 103 H 18 131/97 100 O2 Del Method 12/21/21 14:37 12/21/21 13:04 Room Air 12/21/21 12:09 Room Air 12/21/21 12:05 Room Air Diagnostic Findings Abdomen/Pelvis CT 12/21/21 12:30 CT abd pelvis oral and IV con CLINICAL HISTORY: melena, eval gastric bypass TECHNIQUE: Helical axial images of the abdomen and pelvis were obtained and displayed. Automated dose lowering techniques and/or adjustment according to patient size were utilized for this exam. This exam was performed with intravenous contrast. CT DOSE: 874.02 mGy.cm COMPARISON: Comparison is made to CT abdomen pelvis 01/22/2015 FINDINGS: Lower chest: No acute abnormality Liver: Hepatic steatosis and hepatomegaly is noted. Gallbladder and biliary tree: Patient is status post cholecystectomy. No intra- or extrahepatic biliary ductal dilation. Pancreas: Fatty replacement of the pancreas is seen. Spleen: Unremarkable. Adrenals: Unremarkable. Kidneys and ureters: Unremarkable. Bladder: Unremarkable. Reproductive organs: Unremarkable. Bowel: Unremarkable appearance of the bowel. The appendix is normal. Patient is status post gastric bypass surgery. There is a small hiatal hernia. Mild gastric wall thickening and fat stranding is noted. No enteric contrast is seen in the excluded stomach. Duodenal diverticulum is seen. Lymph nodes Retroperitoneal: Unremarkable. Pelvic: Unremarkable. Mesenteric: Unremarkable. Peritoneum: Normal. Vessels: Collaterals are noted in the abdominal wall. The portal vein is u nremarkable. Abdominal wall: Unremarkable. Bones: Minimal degenerative changes are seen without evidence of acute abnormality. IMPRESSION: 1. Wall thickening and fat stranding is seen about the region of the gastric bypass compatible with infectious/inflammatory process. No enteric contrast in the excluded stomach to suggest dehiscence. 2. Hepatic steatosis hepatomegaly. Interval development of venous collaterals in the abdominal wall which may reflect portal hypertension. ACT 112: Negative or not required by law. Electronically signed by: Kingsley Jacobs M.D. 12/21/2021 2:11 PM Medications Administered Medication List Pantoprazole Sodium 40 mg/ (Dextrose) 100 mls @ 20 mls/hr IV Q5H FRANCISCA Stop: 01/20/22 15:14 Last Admin: 12/21/21 15:17 Dose: 8 mg/hr, 20 mls/hr Documented By: NRNida Discontinued Medications Sodium Chloride (Nss 1000ml) 1,000 mls @ 999 mls/hr IV .Q1H1M ONE Stop: 12/21/21 13:07 Last Infusion: 12/21/21 14:32 Dose: 0 mls/hr Documented By: Admin: 12/21/21 12:58 Dose: 999 mls/hr Documented By: MIRACLE Pantoprazole Sodium 40 mg/ (Syringe) 10 mls @ 5 mls/min IV NOW ONE Stop: 12/21/21 12:31 Last Admin: 12/21/21 13:25 Dose: 5 mls/min Documented By: BISI Famotidine (Pepcid 20mg Iv Push) 20 mg in 5 mls @ 2.5 mls/min IV NOW STA Stop: 12/21/21 12:31 Last Admin: 12/21/21 12:57 Dose: 2.5 mls/min Documented By: MIRACLE Ioversol (Optiray 320 100ml) 85 ml IV ONCE ONE Stop: 12/21/21 13:51 Last Admin: 12/21/21 13:45 Dose: 85 ml Documented By: SEUN Ondansetron HCl (Ondansetron Inj 2 Mg/Ml 2 Ml Vial) 4 mg IV NOW STA Stop: 12/21/21 12:31 Last Admin: 12/21/21 12:57 Dose: 4 mg Documented By: MIRACLE ECG Rate (beats per minute): 107 Rhythm: sinus tachycardia COVID-19 Results Results COVID-19 Adm Lab Results: RBC 2.92 M/uL (3.93-5.22) L 12/21/21 WBC 5.28 K/ul (4.8-10.8) 12/21/21 Hgb 10.3 g/dl (12.0-16.0) L 12/21/21 Hct 30.5 % (34.1-44.9) L 12/21/21 Plt Count 185 K/uL (130-400) 12/21/21 Neutrophils (%) (Auto) 67.4 % 12/21/21 Lymphocytes (%) (Auto) 15.2 % 12/21/21 Monocytes # (Auto) 0.82 K/uL (0.24-0.82) 12/21/21 Eosinophils # (Auto) 0.05 K/uL (0-0.50) 12/21/21 Immature Granulocyte % (Auto) 0.4 % 12/21/21 Neutrophils # (Auto) 3.56 K/uL (1.4-6.5) 12/21/21 Lymphocytes # (Auto) 0.80 K/uL (1.2-3.4) L 12/21/21 Monocytes # (Auto) 0.82 K/uL (0.24-0.82) 12/21/21 Eosinophils # (Auto) 0.05 K/uL (0-0.50) 12/21/21 Basophils # (Auto) 0.03 K/uL (0-0.2) 12/21/21 Immature Granulocyte # (Auto) 0.02 K/uL (0.00-0.02) 2 Na 135 mmol/L (136-145) L 12/21/21 K 4.0 mmol/L (3.5-5.1) 12/21/21 Cl 105 mmol/L (98-107) 12/21/21 CO2 22 mmol/L (21-32) 12/21/21 Anion Gap 8 (3-11) 12/21/21 BUN 9 mg/dl (6-23) 12/21/21 Creatinine 0.45 mg/dl (0.6-1.2) L 12/21/21 BUN/Creatinine Ratio 20.0 (10-20) 12/21/21 Glucose Level 99 mg/dl (70-99(Fasting)) 12/21/21 Ca 8.7 mg/dl (8.5-10.1) 12/21/21 Phosphorus Level 3.7 mg/dl (2.5-4.9) 12/21/21 Total Bilirubin 2.3 mg/dl (0.2-1.0) H 12/21/21 AST/SGOT 41 U/L (13-39) H 12/21/21 ALT/SGPT 33 U/L (7-52) 12/21/21 Alkaline Phosphatase 170 U/L (34-104) H 12/21/21 Total Protein 5.8 gm/dl (6.0-8.3) L 12/21/21 Albumin 3.4 gm/dl (3.4-5.0) 12/21/21 Globulin 2.4 gm/dl (2.5-4.0) L 12/21/21 Albumin/Globulin Ratio 1.4 (0.9-2) 12/21/21 INR 1.1 (0.9-1.1) 12/21/21 SARS-CoV-2, RNA, NAAT NEGATIVE (NEGATIVE) 12/21/21 Code Status & VTE Plan Code Status FULL CODE Supervising Physician Co-Signing Physician Notes Patient is a 31-year-old female with history of gastric bypass, iron deficiency anemia, alcohol abuse and other medical problems presents with history of melena associated with nausea since 1 day duration. Patient noted to have black tarry stool this morning. She admits to have mild right upper quadrant abdominal pain nonradiating, stabbing-like with started after having the bowel movement this morning. She denies any dysuria, urinary frequency or hematuria. Also denies any use of NSAIDs. She has prior history of peptic ulcer disease in the past. Previously on anticoagulation for DVT but currently not on any anticoagulation. Last alcohol drink was yesterday. Please review HPI for complete details of presentation. Blood work showed hemoglobin 10.3, hematocrit 30.5, platelets 185, normal INR, sodium 135, potassium 4, chloride 105, creatinine 0.45, BUN 9, glucose 99, total bilirubin 2.3, AST 41, ALT 33, alkaline phosphatase 170. Urinalysis is abnormal. Alcohol level is negative. CT abdomen showed wall thickening and fat stranding is seen about the region of the gastric bypass compatible with infectious/intermittent process. No enteric contrast in the excluded stomach to suggest dehiscence. Hepatic steatosis, hepatomegaly with interval development of venous collaterals in the abdomen wall suggestive of portal hypertension noted. MRCP showed gastric wall thickening and fat stranding concerning for gastritis. Biliary duct is normal. Patient was evaluated by GI while in ED. Physical Exam: Vitals signs as noted above General Appearance:Obese, no apparent distress Head: normocephalic, Atraumatic Eyes: normal inspection, EOMI Neck: supple, Trachea midline Respiratory/Chest: Normal breath sounds, CTA, No accessory muscle use, +Port on Left sidie of chest Cardiovascular: S1, S2, No murmur Abdomen/GI:Soft, RUQ, RLQ ,mild tender, Bowel sounds present, no guarding or rigidity. Extremities/Musculoskeletal:normal inspection, no edema Neurologic/Psych:AAOX3, grossly no focal neurological deficits Skin: normal color, warm Melena Acute blood loss anemia Possible Gastritis H/O PUD, gastric bypass, GEJ stricture Avoid any anticoagulation, NSAIDs N.p.o. after midnight, IV fluids Protonix drip Appreciate GI input Alcohol cessation counseled Likely to have EGD in AM Alcohol use disorder Monitor for withdrawal Thiamine, folic acid Counseled I personally reviewed the record. Patient is interviewed and examined at bedside. Patient's care is coordinated with Manda Herrera PA-C. Please refer to the documentation above for details of patient's presentation and for discussion of other issues.
[2021-12-21] MEDS ORDERED: SODIUM CHLORIDE 0.9% 250 ML IV PRN (15:40)
--- NOTE | 2021-12-21 17:21 | Electrocardiogram Report ---
Test Reason : Blood Pressure : / mmHG Vent. Rate : 107 BPM Atrial Rate : 107 BPM P-R Int : 130 ms QRS Dur : 070 ms QT Int : 346 ms P-R-T Axes : 026 007 013 degrees QTc Int : 461 ms Sinus tachycardia Abnormal ECG When compared with ECG of 26-DEC-2018 19:32, No significant change was found Confirmed by Baldo Saldana ([id number]) on 12/21/2021 5:21:16 PM Referred By: REFERRED SELF Confirmed By:Aaron Saldana
--- NOTE | 2021-12-21 17:57 | Magnetic Resonance Report ---
MR MRCP CLINICAL HISTORY: abd pain, nausea, elevated tbili TECHNIQUE: Multiplanar multisequence MR images of the abdomen were obtained, as per MRCP protocol. . COMPARISON: Comparison is made to CT abdomen pelvis 12/21/2021 FINDINGS: Lower chest: No acute abnormality Liver: Unremarkable. No focal lesions are seen. Gallbladder and biliary tree: Patient is status post cholecystectomy. No intra- or extrahepatic bilia ry ductal dilation. Pancreas: Unremarkable, no focal lesions. Spleen: Unremarkable. Adrenals: Unremarkable. Kidneys and ureters: Unremarkable. Bowel: Prominence of the gastric wall is seen. There is mild surrounding fat stranding. Lymph nodes Retroperitoneal: Unremarkable. Mesenteric: Unremarkable. Peritoneum: Fat stranding is seen around the stomach. Vessels: Collaterals are noted in the subcutaneous soft tissues. Abdominal wall: Unremarkable. Bones: Unremarkable. IMPRESSION: 1. Gastric wall thickening and fat stranding is seen concerning for gastritis. 2. Status post cholecystectomy. The biliary duct is normal. ACT 112: Negative or not required by law. Electronically signed by: Kingsley Jacobs M.D. 12/21/2021 5:55 PM
[2021-12-21] MEDS ORDERED: ONDANSETRON INJ 2 MG/ML 2 ML VIAL IV PRN (18:20)
[2021-12-21] MEDS ORDERED: hydrOXYzine HCl 10 MG TAB PO PRN (18:20)
[2021-12-21] MEDS ORDERED: LORazepam 1 MG TAB PO PRN (18:20)
[2021-12-21] MEDS ORDERED: ALBUTEROL 0.083% NEBU SOLN 3 ML VIAL INH PRN (18:20)
[2021-12-21 19:16] LABS: Hematocrit (blood only) 27.8 % (34.1-44.9); Hemoglobin 9.5 g/dl (12.0-16.0)
[2021-12-21] MEDS: FOLIC ACID 1 MG TAB PO SCH (20:19)
[2021-12-21] MEDS: THIAMINE HCL 100 MG TAB PO SCH (20:19)
[2021-12-21] MEDS: TOPIRAMATE 50 MG TAB PO SCH (20:20)
[2021-12-21] MEDS: AMITRIPTYLINE HCL 100 MG TAB PO SCH (20:20)
[2021-12-21] MEDS: FAMOTIDINE 20 MG TAB PO SCH (20:20)
[2021-12-21] MEDS: VENLAFAXINE HCL 50 MG TAB PO SCH (20:20)
[2021-12-22] MEDS ORDERED: SODIUM CHLORIDE 0.9% 1000ML 1,000 ML IV SCH
[2021-12-22] MEDS: PANTOprazole 40 MG in DEXTROSE 5% 100 ML IV SCH ×4 (01:15→19:40)
[2021-12-22 02:19] LABS: Basophils # (auto) 0.02 K/uL (0-0.2); Basophils % (auto) 0.6 %; Eosinophils # (auto) 0.09 K/uL (0-0.50); Eosinophils % (auto) 2.8 %; Hematocrit (blood only) 25.1 % (34.1-44.9); Hemoglobin 8.4 g/dl (12.0-16.0); Immature Granulocytes # (auto) 0.01 K/uL (0.00-0.02); Immature Granulocytes % (auto) 0.3 %; Lymphocytes % (auto) 24.5 %; Mean Corpuscular Hemoglobin 35.3 pg (25.0-34.0); Mean Corpuscular Hgb Conc 33.5 g/dL (32.0-36.0); Mean Corpuscular Volume 105.5 fL (80.0-100.0); Mean Platelet Volume 9.8 fL (9.4-12.3); Monocytes # (auto) 0.54 K/uL (0.24-0.82); Monocytes % (auto) 16.5 %; Neutrophils # (auto) 1.81 K/uL (1.4-6.5); Neutrophils % (auto) 55.3 %; Platelet Count 152 K/uL (130-400); RDW Standard Deviation 49.4 fL (36.4-46.3); Red Blood Count 2.38 M/uL (3.93-5.22); White Blood Count 3.27 K/ul (4.8-10.8)
[2021-12-22 02:45] LABS: Alanine Aminotransferase 25 U/L (7-52); Albumin Globulin Ratio 1.5 (0.9-2); Albumin Level 2.9 gm/dl (3.4-5.0); Alkaline Phosphatase 137 U/L (34-104); Anion Gap 6 (3-11); Aspartate Aminotransferase 31 U/L (13-39); BUN Creatinine Ratio 14.6 (10-20); Bilirubin,Total 1.4 mg/dl (0.2-1.0); Blood Urea Nitrogen 7 mg/dl (6-23); Carbon Dioxide 22 mmol/L (21-32); Chloride 105 mmol/L (98-107); Creatinine Clr Calc Pharmacy 207.4 ml/min; Est GFR (African American) > 150.0 ml/min; Est GFR (Non-African American) 129.8 ml/min; Glucose 94 mg/dl (70-99(Fasting)); Magnesium 1.8 mg/dl (1.7-2.4); Potassium 3.6 mmol/L (3.5-5.1); Sodium 133 mmol/L (136-145); Total Protein 4.9 gm/dl (6.0-8.3)
--- NOTE | 2021-12-22 08:46 | Gastroenterology Progress Note ---
Date of Service December 22, 2021 Assessment & Plan (1) Gastric bypass status for obesity: Plan: 31 year old female with history of MS, anxiety/depression, asthma, RYGB, GEJ stricture presenting to ED with discomfort, nausea x 1 week and melena x 1 day. HGB 8.4 from baseline 13 w/ normal BUN NPO for EGD this AM Continue plan per note yesterday MRCP reviewed without acute biliary findings Thank you for allowing us to participate in the care of this patient. Please call with any acute changes, questions or concerns. Please see addendum below with additional recommendation from my supervising physician. Admission and Anticipated Discharge Date Admission Date: December 21, 2021 Supervising Physician Co-Signing Physician Notes I performed a history and physical examination of the patient today, including specifically on physical exam - soft abdomen. I have discussed the patient's management with the advanced practitioner. Please refer to the nurse practitioner's note for the documented findings and plan of care. EGD today Patient was explained in detail regarding risks, benefits, limitations and alternatives of the above endoscopic procedure. Risks of intravenous sedation used for procedure were also explained. Risks include, but not limited to perforation, bleeding, infection, respiratory distress, cardiac arrest and . Patient is also aware about the possibility of missed lesion. Patient's questions were answered. The patient verbalized understanding the information and agreed to undergo the procedure. Subjective Pt was seen and evaluated, chart reviewed. Had persistent dark stools yesterday. Suggests 3/4 episodes of dark, tarry BMs since ED evaluation. Some nausea, no vomiting. HGB this AM 8.4 w/ normal BUN. Review of Systems Review of Systems: All systems reviewed & are unremarkable except as noted in HPI & below Physical Exam Constitutional: WD/WN, vitals as above Neck: trachea midline, no thyromegaly Respiratory: normal respiratory effort, lungs clear to auscultation Cardiovascular: Rate/Rhythm: regular rate Gastrointestinal (Abdomen): normal bowel sounds, soft, nontender, no hepatosplenomegaly Results & Data ([facility]) Vital Signs (Past 12 Hours) Vital Signs Temp Pulse Pulse Resp BP Pulse Ox O2 Del Method 12/22/21 07:33 36.6 C 92 H 18 127/78 100 Room Air 12/22/21 07:51 100 H 12/22/21 03:07 36.7 C 110 H 14 103/66 99 Room Air 12/21/21 22:53 36.7 C 105 H 18 109/79 98 Room Air Laboratory Results 12/22/21 12/22/21 12/21/21 Range/Units 02:08 02:08 18:47 WBC 3.27 L (4.8-10.8) K/ul RBC 2.38 L (3.93-5.22) M/uL Hgb 8.4 L 9.5 L (12.0-16.0) g/dl Hct 25.1 L 27.8 L (34.1-44.9) % MCV 105.5 H (80.0-100.0) fL MCH 35.3 H (25.0-34.0) pg MCHC 33.5 (32.0-36.0) g/dL RDW Std Deviation 49.4 H (36.4-46.3) fL RDW Coeff of [place] 13.0 (11.5-14.5) % Plt Count 152 (130-400) K/uL MPV 9.8 (9.4-12.3) fL Immature Gran % (Auto) 0.3 % Neut % (Auto) 55.3 % Lymph % (Auto) 24.5 % [place] % (Auto) 16.5 % Eos % (Auto) 2.8 % Baso % (Auto) 0.6 % Neut # (Auto) 1.81 (1.4-6.5) K/uL Lymph # (Auto) 0.80 L (1.2-3.4) K/uL [place] # (Auto) 0.54 (0.24-0.82) K/uL Eos # (Auto) 0.09 (0-0.50) K/uL Baso # (Auto) 0.02 (0-0.2) K/uL Immature Gran # (Auto) 0.01 (0.00-0.02) K/uL PT (9.0-12.0) Seconds INR (0.9-1.1) Sodium 133 L (136-145) mmol/L Potassium 3.6 (3.5-5.1) mmol/L Chloride 105 (98-107) mmol/L Carbon Dioxide 22 (21-32) mmol/L Anion Gap 6 (3-11) BUN 7 (6-23) mg/dl Creatinine 0.48 L (0.6-1.2) mg/dl Est Cr Clr Drug Dosing 207.4 ml/min Est GFR ( Amer) > 150.0 ml/min Est GFR (Non-Af Amer) 129.8 ml/min BUN/Creatinine Ratio 14.6 (10-20) Glucose 94 (70-99(Fasting)) mg/dl Calcium 8.0 L (8.5-10.1) mg/dl Phosphorus (2.5-4.9) mg/dl Magnesium 1.8 (1.7-2.4) mg/dl Total Bilirubin 1.4 H (0.2-1.0) mg/dl AST 31 (13-39) U/L ALT 25 (7-52) U/L Alkaline Phosphatase 137 H (34-104) U/L Total Protein 4.9 L (6.0-8.3) gm/dl Albumin 2.9 L (3.4-5.0) gm/dl Globulin 2.0 L (2.5-4.0) gm/dl Albumin/Globulin Ratio 1.5 (0.9-2) Lipase (11-82) U/L HCG, Qual (Negative) Urine Color Urine Appearance (Clear) Urine pH (4.5-7.5) Ur Specific [place] (1.000-1.030) Urine Protein (Negative) Urine Glucose (UA) (Negative) Urine Ketones (Negative) Urine Blood (Negative) Urine Nitrite (Negative) Urine Bilirubin (Negative) Urine Urobilinogen (Negative) Ur Leukocyte Esterase (Negative) Urine WBC (Auto) (0-5) /hpf Urine RBC (Auto) (0-4) /hpf U Hyaline Cast (Auto) (0-5) /lpf U Epithel Cells (Auto) (0-5) /lpf Urine Bacteria (Auto) (Negative) Ethyl Alcohol mg/dL (<10.0) mg/dl Hepatitis A IgM Ab Hep Bs Antigen Hep Bs Ag Confirmation Hep B Core IgM Ab Hepatitis C Ab (EIA) Hep C Ab Signal/Cutoff SARS-CoV-2, RNA, NAAT (NEGATIVE) Blood Type Antibody Screen Crossmatch 12/21/21 12/21/21 12/21/21 Range/Units 16:10 16:10 12:35 WBC (4.8-10.8) K/ul RBC (3.93-5.22) M/uL Hgb (12.0-16.0) g/dl Hct (34.1-44.9) % MCV (80.0-100.0) fL MCH (25.0-34.0) pg MCHC (32.0-36.0) g/dL RDW Std Deviation (36.4-46.3) fL RDW Coeff of [place] (11.5-14.5) % Plt Count (130-400) K/uL MPV (9.4-12.3) fL Immature Gran % (Auto) % Neut % (Auto) % Lymph % (Auto) % [place] % (Auto) % Eos % (Auto) % Baso % (Auto) % Neut # (Auto) (1.4-6.5) K/uL Lymph # (Auto) (1.2-3.4) K/uL [place] # (Auto) (0.24-0.82) K/uL Eos # (Auto) (0-0.50) K/uL Baso # (Auto) (0-0.2) K/uL Immature Gran # (Auto) (0.00-0.02) K/uL PT (9.0-12.0) Seconds INR (0.9-1.1) Sodium (136-145) mmol/L Potassium (3.5-5.1) mmol/L Chloride (98-107) mmol/L Carbon Dioxide (21-32) mmol/L Anion Gap (3-11) BUN (6-23) mg/dl Creatinine (0.6-1.2) mg/dl Est Cr Clr Drug Dosing ml/min Est GFR ( Amer) ml/min Est GFR (Non-Af Amer) ml/min BUN/Creatinine Ratio (10-20) Glucose (70-99(Fasting)) mg/dl Calcium (8.5-10.1) mg/dl Phosphorus (2.5-4.9) mg/dl Magnesium (1.7-2.4) mg/dl Total Bilirubin (0.2-1.0) mg/dl AST (13-39) U/L ALT (7-52) U/L Alkaline Phosphatase (34-104) U/L Total Protein (6.0-8.3) gm/dl Albumin (3.4-5.0) gm/dl Globulin (2.5-4.0) gm/dl Albumin/Globulin Ratio (0.9-2) Lipase (11-82) U/L HCG, Qual (Negative) Urine Color Urine Appearance (Clear) Urine pH (4.5-7.5) Ur Specific [place] (1.000-1.030) Urine Protein (Negative) Urine Glucose (UA) (Negative) Urine Ketones (Negative) Urine Blood (Negative) Urine Nitrite (Negative) Urine Bilirubin (Negative) Urine Urobilinogen (Negative) Ur Leukocyte Esterase (Negative) Urine WBC (Auto) (0-5) /hpf Urine RBC (Auto) (0-4) /hpf U Hyaline Cast (Auto) (0-5) /lpf U Epithel Cells (Auto) (0-5) /lpf Urine Bacteria (Auto) (Negative) Ethyl Alcohol mg/dL (<10.0) mg/dl Hepatitis A IgM Ab Pending Hep Bs Antigen Pending Hep Bs Ag Confirmation Pending Hep B Core IgM Ab Pending Hepatitis C Ab (EIA) Pending Hep C Ab Signal/Cutoff Pending SARS-CoV-2, RNA, NAAT NEGATIVE (NEGATIVE) Blood Type O Positive Antibody Screen NEGATIVE Crossmatch See Detail 12/21/21 12/21/21 12/21/21 Range/Units 12:30 12:30 12:30 WBC (4.8-10.8) K/ul RBC (3.93-5.22) M/uL Hgb (12.0-16.0) g/dl Hct (34.1-44.9) % MCV (80.0-100.0) fL MCH (25.0-34.0) pg MCHC (32.0-36.0) g/dL RDW Std Deviation (36.4-46.3) fL RDW Coeff of [place] (11.5-14.5) % Plt Count (130-400) K/uL MPV (9.4-12.3) fL Immature Gran % (Auto) % Neut % (Auto) % Lymph % (Auto) % [place] % (Auto) % Eos % (Auto) % Baso % (Auto) % Neut # (Auto) (1.4-6.5) K/uL Lymph # (Auto) (1.2-3.4) K/uL [place] # (Auto) (0.24-0.82) K/uL Eos # (Auto) (0-0.50) K/uL Baso # (Auto) (0-0.2) K/uL Immature Gran # (Auto) (0.00-0.02) K/uL PT 11.4 (9.0-12.0) Seconds INR 1.1 (0.9-1.1) Sodium (136-145) mmol/L Potassium (3.5-5.1) mmol/L Chloride (98-107) mmol/L Carbon Dioxide (21-32) mmol/L Anion Gap (3-11) BUN (6-23) mg/dl Creatinine (0.6-1.2) mg/dl Est Cr Clr Drug Dosing ml/min Est GFR ( Amer) ml/min Est GFR (Non-Af Amer) ml/min BUN/Creatinine Ratio (10-20) Glucose (70-99(Fasting)) mg/dl Calcium (8.5-10.1) mg/dl Phosphorus (2.5-4.9) mg/dl Magnesium (1.7-2.4) mg/dl Total Bilirubin (0.2-1.0) mg/dl AST (13-39) U/L ALT (7-52) U/L Alkaline Phosphatase (34-104) U/L Total Protein (6.0-8.3) gm/dl Albumin (3.4-5.0) gm/dl Globulin (2.5-4.0) gm/dl Albumin/Globulin Ratio (0.9-2) Lipase (11-82) U/L HCG, Qual (Negative) Urine Color [place] Urine Appearance Clear (Clear) Urine pH 8.0 H (4.5-7.5) Ur Specific [place] 1.015 (1.000-1.030) Urine Protein Negative (Negative) Urine Glucose (UA) Negative (Negative) Urine Ketones Trace H (Negative) Urine Blood Negative (Negative) Urine Nitrite Negative (Negative) Urine Bilirubin Negative (Negative) Urine Urobilinogen Positive H (Negative) Ur Leukocyte Esterase 3+ H (Negative) Urine WBC (Auto) >30 H (0-5) /hpf Urine RBC (Auto) 0-4 (0-4) /hpf U Hyaline Cast (Auto) 0 (0-5) /lpf U Epithel Cells (Auto) 20-30 H (0-5) /lpf Urine Bacteria (Auto) Negative (Negative) Ethyl Alcohol mg/dL < 10.0 (<10.0) mg/dl Hepatitis A IgM Ab Hep Bs Antigen Hep Bs Ag Confirmation Hep B Core IgM Ab Hepatitis C Ab (EIA) Hep C Ab Signal/Cutoff SARS-CoV-2, RNA, NAAT (NEGATIVE) Blood Type Antibody Screen Crossmatch 12/21/21 12/21/21 12/21/21 Range/Units 12:30 12:30 12:30 WBC 5.28 (4.8-10.8) K/ul RBC 2.92 L (3.93-5.22) M/uL Hgb 10.3 L (12.0-16.0) g/dl Hct 30.5 L (34.1-44.9) % MCV 104.5 H (80.0-100.0) fL MCH 35.3 H (25.0-34.0) pg MCHC 33.8 (32.0-36.0) g/dL RDW Std Deviation 49.2 H (36.4-46.3) fL RDW Coeff of [place] 13.0 (11.5-14.5) % Plt Count 185 (130-400) K/uL MPV 10.3 (9.4-12.3) fL Immature Gran % (Auto) 0.4 % Neut % (Auto) 67.4 % Lymph % (Auto) 15.2 % [place] % (Auto) 15.5 % Eos % (Auto) 0.9 % Baso % (Auto) 0.6 % Neut # (Auto) 3.56 (1.4-6.5) K/uL Lymph # (Auto) 0.80 L (1.2-3.4) K/uL [place] # (Auto) 0.82 (0.24-0.82) K/uL Eos # (Auto) 0.05 (0-0.50) K/uL Baso # (Auto) 0.03 (0-0.2) K/uL Immature Gran # (Auto) 0.02 (0.00-0.02) K/uL PT (9.0-12.0) Seconds INR (0.9-1.1) Sodium 135 L (136-145) mmol/L Potassium 4.0 (3.5-5.1) mmol/L Chloride 105 (98-107) mmol/L Carbon Dioxide 22 (21-32) mmol/L Anion Gap 8 (3-11) BUN 9 (6-23) mg/dl Creatinine 0.45 L (0.6-1.2) mg/dl Est Cr Clr Drug Dosing 221.2 ml/min Est GFR ( Amer) > 150.0 ml/min Est GFR (Non-Af Amer) 132.6 ml/min BUN/Creatinine Ratio 20.0 (10-20) Glucose 99 (70-99(Fasting)) mg/dl Calcium 8.7 (8.5-10.1) mg/dl Phosphorus 3.7 (2.5-4.9) mg/dl Magnesium 1.9 (1.7-2.4) mg/dl Total Bilirubin 2.3 H (0.2-1.0) mg/dl AST 41 H (13-39) U/L ALT 33 (7-52) U/L Alkaline Phosphatase 170 H (34-104) U/L Total Protein 5.8 L (6.0-8.3) gm/dl Albumin 3.4 (3.4-5.0) gm/dl Globulin 2.4 L (2.5-4.0) gm/dl Albumin/Globulin Ratio 1.4 (0.9-2) Lipase 18 (11-82) U/L HCG, Qual Negative (Negative) Urine Color Urine Appearance (Clear) Urine pH (4.5-7.5) Ur Specific [place] (1.000-1.030) Urine Protein (Negative) Urine Glucose (UA) (Negative) Urine Ketones (Negative) Urine Blood (Negative) Urine Nitrite (Negative) Urine Bilirubin (Negative) Urine Urobilinogen (Negative) Ur Leukocyte Esterase (Negative) Urine WBC (Auto) (0-5) /hpf Urine RBC (Auto) (0-4) /hpf U Hyaline Cast (Auto) (0-5) /lpf U Epithel Cells (Auto) (0-5) /lpf Urine Bacteria (Auto) (Negative) Ethyl Alcohol mg/dL (<10.0) mg/dl Hepatitis A IgM Ab Hep Bs Antigen Hep Bs Ag Confirmation Hep B Core IgM Ab Hepatitis C Ab (EIA) Hep C Ab Signal/Cutoff SARS-CoV-2, RNA, NAAT (NEGATIVE) Blood Type Antibody Screen Crossmatch
[2021-12-22 10:14] LABS: Hematocrit (blood only) 25.8 % (34.1-44.9); Hemoglobin 8.7 g/dl (12.0-16.0)
--- NOTE | 2021-12-22 10:40 | Anesthesiology Consultation ---
Date of Service December 22, 2021 Assessment & Plan (1) Encounter for pre-operative examination: Chart Review Chart Review: Acceptable Risk for Surgery (necessary procedure) and Patient NOT seen in Pre Admission Testing Consults Requested none History Surgery Operation Date: 12/22/21 15:30 Proposed Procedures p Esophagogastroduodenoscopy Dr Ha - Anita Ha MD Height/Weight Height: 5 ft 7 in Weight: 101.6 kg Allergies Allergy/AdvReac Type Severity Reaction Status Date / Time Sulfa (Sulfonamide Allergy Severe Hives Verified 08/18/20 19:15 Antibiotics) Cephalosporins Allergy Intermediate Hives Verified 08/18/20 19:15 hydrocodone Allergy Intermediate Itching Verified 08/18/20 19:15 methocarbamol Allergy Mild Rash Verified 08/18/20 19:15 clindamycin AdvReac Intermediate Heartburn Verified 08/18/20 19:15 Medications Home Medications Medication Instructions Recorded Confirmed Last Taken albuterol sulfate 2.5 mg/3 mL 2.5 mg inhalation Q4H PRN Wheezing 12/26/18 12/21/21 Unknown (0.083 %) solution for nebulization albuterol sulfate 90 mcg/actuation 2 puff inhalation Q4H PRN Wheezing 12/26/18 12/21/21 Unknown aerosol inhaler (ProAir HFA) amitriptyline 100 mg tablet 100 mg PO HS 12/26/18 12/21/21 08/17/20 azelastine 137 mcg (0.1 %) nasal 1 spray intranasal BID PRN Allergy 12/26/18 12/21/21 Unknown spray aerosol Symptoms budesonide 32 mcg/actuation nasal 1 spray intranasal BID PRN Allergy 12/26/18 12/21/21 Unknown spray Symptoms cholecalciferol (vitamin D3) 125 5,000 unit PO DAILY 12/26/18 12/21/21 08/18/20 mcg (5,000 unit) tablet (Vitamin D3) cholecalciferol (vitamin D3) 25 1,000 unit PO DAILY 12/26/18 12/21/21 08/18/20 mcg (1,000 unit) capsule (Vitamin D3) cranberry 500 mg capsule 500 mg PO DAILY 12/26/18 12/21/21 08/18/20 cyanocobalamin (vitamin B-12) 1,000 mcg IM MONTHLY 12/26/18 12/21/21 Unknown 1,000 mcg/mL injection solution diphenhydramine 25 1 tab PO TID PRN Itching 12/26/18 12/21/21 Unknown mg-acetaminophen 500 mg tablet (Tylenol PM Extra Strength) fexofenadine 180 mg tablet 180 mg PO DAILY PRN Allergy 12/26/18 12/21/21 05/06/19 Symptoms hydroxyzine HCl 10 mg tablet 10 mg PO HS PRN Anxiety 12/26/18 12/21/21 Unknown medroxyprogesterone 150 mg/mL 150 mg IM .Q12W 12/26/18 12/21/21 Unknown intramuscular suspension ocrelizumab 30 mg/mL intravenous 300 mg IV .[id number] 12/26/18 12/21/21 Unknown solution (Ocrevus) omeprazole 40 mg capsule,delayed 40 mg PO BID 12/26/18 12/21/21 08/18/20 08:00 release promethazine 25 mg tablet 25 mg PO Q6H PRN Nausea or Vomiting 12/26/18 12/21/21 Unknown rizatriptan 10 mg tablet 10 mg PO DIRECTED PRN Headache 12/26/18 12/21/21 Unknown topiramate 50 mg tablet 50 mg PO BID 12/26/18 12/21/21 08/18/20 08:00 venlafaxine 50 mg tablet 50 mg PO BID 12/26/18 12/21/21 08/18/20 08:00 famotidine 20 mg tablet 20 mg PO BID 05/06/19 12/21/21 08/18/20 08:00 Active Medications Generic Name Dose Route Start Last Admin Trade Name Graciela PRN Reason Stop Dose Admin Amitriptyline HCl 100 mg 12/21/21 21:00 12/21/21 20:20 Amitriptyline Hcl 100 Mg Tab PO 01/20/22 20:59 100 mg HS FRANCISCA Administration Famotidine 20 mg 12/21/21 21:00 12/21/21 20:20 Famotidine 20 Mg Tab PO 01/20/22 20:59 20 mg BID FRANCISCA Administration Folic Acid 1 mg 12/21/21 18:20 12/21/21 20:19 Folic Acid 1 Mg Tab PO 01/20/22 18:19 1 mg QAM FRANCISCA Administration Hydroxyzine HCl 10 mg 12/21/21 18:20 12/22/21 00:06 Hydroxyzine Hcl 10 Mg Tab PO 01/20/22 18:19 10 mg HS PRN Administration Anxiety Pantoprazole Sodium 40 mg/ 100 mls @ 20 mls/hr 12/21/21 15:15 12/22/21 06:10 Dextrose IV 01/20/22 15:14 8 mg/hr Q5H FRANCISCA 20 mls/hr Administration 8 MG/HR Sodium Chloride 1,000 mls @ 80 mls/hr 12/22/21 00:00 12/22/21 00:06 Nss 1000ml IV 12/22/21 12:29 80 mls/hr .[id number] FRANCISCA Administration Thiamine HCl 100 mg 12/21/21 18:20 12/21/21 20:19 Thiamine Hcl 100 Mg Tab PO 01/20/22 18:19 100 mg QAM FRANCISCA Administration Topiramate 50 mg 12/21/21 21:00 12/21/21 20:20 Topiramate 50 Mg Tab PO 01/20/22 20:59 50 mg BID FRANCISCA Administration Venlafaxine HCl 50 mg 12/21/21 21:00 12/21/21 20:20 Venlafaxine Hcl 50 Mg Tab PO 01/20/22 20:59 50 mg BID FRANCISCA Administration Past Medical History Medical History Asthma exacerbation Depression Elevated uric acid in blood History of deep vein thrombosis History of multiple sclerosis Hx of peptic ulcer Iron deficiency anemia Migraine Obesity Patellofemoral dysfunction of right knee Postgastric surgery syndrome Past Family History Family History Other Diabetes Hypertension Past Surgical History Surgical History Gastric bypass status for obesity History of insertion of tunneled central venous catheter (CVC) with port History of liver biopsy S/P cholecystectomy S/P surgery on nasal septum Social History Smoking Status: Never smoker Hx Alcohol Use: Yes Alcohol type: beer alcohol intake frequency: a few times a week Hx Substance Use: No Physical Exam Vital Signs Last Vital Signs Temp 36.6 C 12/22/21 07:33 Pulse 100 H 12/22/21 07:51 Resp 18 12/22/21 07:33 BP 127/78 12/22/21 07:33 Pulse Ox 100 12/22/21 07:33 O2 Del Method 12/22/21 07:33 Testing Laboratory Results 12/22/21 10:01 12/22/21 02:08 PT 11.4 Seconds (9.0-12.0) 12/21/21 12:30 INR 1.1 (0.9-1.1) 12/21/21 12:30 Urine Color [place] 12/21/21 12:30 Urine Appearance Clear (Clear) 12/21/21 12:30 Urine pH 8.0 (4.5-7.5) H 12/21/21 12:30 Ur Specific [place] 1.015 (1.000-1.030) 12/21/21 12:30 Urine Protein Negative (Negative) 12/21/21 12:30 Urine Glucose (UA) Negative (Negative) 12/21/21 12:30 Urine Ketones Trace (Negative) H 12/21/21 12:30 Urine Nitrite Negative (Negative) 12/21/21 12:30 Ur Leukocyte Esterase 3+ (Negative) H 12/21/21 12:30 Urine WBC (Auto) >30 /hpf (0-5) H 12/21/21 12:30 Urine RBC (Auto) 0-4 /hpf (0-4) 12/21/21 12:30 U Hyaline Cast (Auto) 0 /lpf (0-5) 12/21/21 12:30 U Epithel Cells (Auto) 20-30 /lpf (0-5) H 12/21/21 12:30 Urine Bacteria (Auto) Negative (Negative) 12/21/21 12:30 Blood Type O Positive 12/21/21 16:10 Antibody Screen NEGATIVE 12/21/21 16:10
[2021-12-22] MEDS ORDERED: LIDOCAINE 2% MPF LOCAL 5 ML VIAL INFIL ONE (11:36)
[2021-12-22] MEDS ORDERED: PROPOFOL IV EMULSION 10 MG/ML 20 ML VIAL IV ONE ×7 (11:36→12:26)
[2021-12-22] MEDS ORDERED: ALBUTEROL HFA INHALER 8.5 GM ONE (11:40)
[2021-12-22] MEDS ORDERED: ONDANSETRON INJ 2 MG/ML 2 ML VIAL ONE (11:41)
[2021-12-22] MEDS ORDERED: fentaNYL citrate 100 MCG/2 ML VIAL ONE (11:42)
[2021-12-22] MEDS ORDERED: ESMOLOL HCL INJ 10 MG/ML 10ML VIAL IV ONE (12:13)
[2021-12-22] MEDS ORDERED: STAT IV STA ×2 (12:36→12:37)
--- NOTE | 2021-12-22 12:39 | Anesthesiology Progress Note ---
Date of Service December 22, 2021 Anesthesia Post Procedure Vital Signs Vital Signs: Temp Pulse Pulse Resp BP Pulse Ox O2 Del Method 12/22/21 12:27 104 H 16 123/76 100 Room Air 12/22/21 11:17 36.9 C 91 H 16 125/85 100 Room Air 12/22/21 07:33 36.6 C 92 H 18 127/78 100 Room Air 12/22/21 07:51 100 H 12/22/21 03:07 36.7 C 110 H 14 103/66 99 Room Air 12/21/21 22:53 36.7 C 105 H 18 109/79 98 Room Air 12/21/21 20:21 36.8 C 113 H 18 118/82 97 Room Air 12/21/21 18:34 112 H 12/21/21 18:23 36.7 C 88 18 134/85 95 Room Air 12/21/21 17:53 98 H 20 133/94 100 Room Air 12/21/21 14:37 97 H 20 125/78 99 12/21/21 13:04 105 H 18 125/70 99 Room Air Pain Intensity Abdomen: Pain Intensity: 0 Transfer of Care Handoff Completed per policy Notes Mental Status: alert / awake / arousable Patient Amnestic to Procedure: Yes Nausea / Vomiting: adequately controlled Pain: adequately controlled Airway Patency, RR, SpO2: stable & adequate BP & HR: stable & adequate Hydration State: stable & adequate Anesthetic Complications: no major complications apparent and Pt Satisfied with anesthetic care
[2021-12-22] MEDS ORDERED: OCTREOTIDE ACETATE 50 MCG in SYRINGE 9.5 ML IV STA (12:42)
--- NOTE | 2021-12-22 12:44 | GI REPORT ---
Patient Name: Shaunna Jerome Procedure Date: 12/22/2021 11:43 AM Date of : 1990 Admit Type: Inpatient Age: 31 Gender: Female Attending MD: Anita Ha MD Procedure: Upper GI endoscopy Providers: Anita Ha MD Referring MD: Alek Matthew Md Indications: Melena Medicines: Propofol per Anesthesia Complications: No immediate complications. Estimated Blood Loss: Estimated blood loss: none. Procedure: Pre-Anesthesia Assessment: - Prior to the procedure, a History and Physical was performed, and patient medications, allergies and sensitivities were reviewed. The patient's tolerance of previous anesthesia was reviewed. - The risks and benefits of the procedure and the sedation options and risks were discussed with the patient. All questions were answered and informed consent was obtained. - Patient identification and proposed procedure were verified prior to the procedure by the physician and the nurse. The procedure was verified in the procedure room. - Pre-procedure physical examination revealed no contraindications to sedation. After obtaining informed consent, the endoscope was passed under direct vision. Throughout the procedure, the patient's blood pressure, pulse, and oxygen saturations were monitored continuously. The Endoscope was introduced through the mouth, and advanced to the efferent jejunal loop. The upper GI endoscopy was accomplished without difficulty. The patient tolerated the procedure well. Findings: The examined esophagus was normal. Evidence of a gastric bypass was found. A gastric pouch was found. The staple line appeared disrupted. The gastrojejunal anastomosis was characterized by moderate stenosis, ulceration, a disrupted staple line and visible sutures. This was traversed. The [id number] limb was not examined as it could not be reached. One oozing cratered ulcer with a visible vessel was found at the gastrojejunal anastomosis. The lesion was 20 mm in largest dimension. Position was very difficult and precludes using a bipolar cautery. Area was unsuccessfully injected with 4 mL of a 1:10,000 solution of epinephrine for hemostasis. To stop active bleeding, hemostatic spray was deployed. Multiple sprays were applied. There was no bleeding at the end of the procedure. The examined jejunum was normal. Impression: - Normal esophagus. - Gastric bypass. - Gastrojejunal anastomosis characterized by ulceration, moderate stenosis, a disrupted staple line and visible sutures. - Actively bleeding Gastrojejunal anastomosis ulcer with a visible vessel. The position precludes treatment with cautery. Hemostatic spray applied. - Normal examined jejunum. Recommendation: - Return patient to hospital [facility] for ongoing care. - NPO for 1 day, then advance as tolerated to clear liquid diet tomorrow. - Monitor for rebleeding, may need second look endoscopy based on clinical response. - No aspirin, ibuprofen, naproxen, or other non-steroidal anti-inflammatory drugs. - Use a proton pump inhibitor IV for 2 days. - Start Octreotide drip for now. Anita Ha MD 12/22/2021 12:43:33 PM This report has been signed electronically. Note Initiated On: 12/22/2021 11:43 AM Number of Addenda: 0 I attest to the content of the Intraoperative Record and orders documented therein, exceptions below {[id number]}
[2021-12-22] MEDS: CHOLECALCIFEROL 5,000 UNITS 125 MCG TAB PO SCH (13:21)
[2021-12-22] MEDS: CHOLECALCIFEROL 1,000 UNITS 25 MCG TAB PO SCH (13:21)
[2021-12-22] MEDS: FAMOTIDINE 20 MG TAB PO SCH ×2 (13:21→19:41)
[2021-12-22] MEDS: VENLAFAXINE HCL 50 MG TAB PO SCH ×2 (13:22→19:41)
[2021-12-22] MEDS: FOLIC ACID 1 MG TAB PO SCH (13:22)
[2021-12-22] MEDS: THIAMINE HCL 100 MG TAB PO SCH (13:22)
[2021-12-22] MEDS: TOPIRAMATE 50 MG TAB PO SCH ×2 (13:22→19:41)
[2021-12-22] MEDS: OCTREOTIDE ACETATE 500 MCG in DEXTROSE 5% 100 ML IV SCH ×2 (13:27→22:12)
[2021-12-22] MEDS ORDERED: ONDANSETRON INJ 2 MG/ML 2 ML VIAL IV PRN (13:46)
[2021-12-22 14:58] LABS: Hemoglobin 8.9 g/dl (12.0-16.0)
--- NOTE | 2021-12-22 15:32 | Hospitalist Progress Note ---
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 Presenting hgb 10.3, was 12.9 in September of 2021 C/o tarry stool and nausea hemodynamically stable w/o evidence of active bleed. UGIB d/t bleeding gastrojejunal ulcer Acute blood loss anemia H/o iron def anemia with h/o iron transfusion in setting of gastric by pass surgery 2008 in [facility] H/o GEJ stricture - H&H trended down now stabilized; Hb 13.9->10.3->9.5->8.4->8.7->8.9 - Hemodynamically stable - S/p EGD today- found to have actively bleeding gastrojejunal ulcer with a visible vessel unable to cauterize and hemostatic spray applied. Normal esophagus, gastric bypass and examined jejunum. - Per GI, strict NPO for 1 day and then clear liquid diet and advance as tolerated, continue IV PPI for 2 days and start on iv octreotide. - Trend H and H, transfuse as needed - Might need repeat EGD depending on the course - Avoid NSAIDs, aspirin etc. - Follow up iron studies to see if she would need iron transfusion - Macrocytic anemia but gets parenteral vitamin B12 monthly- follow b12 level Elevated LFTS t bili 2.3, alp 170, ast 41 CT A/P show fatty liver findings hx of cholecystectomy MRCP unremarkable. Follow LFTs and hepatitis panel Alcohol abuse pt drinks 6 beers every other day place on awss scale, prn ativan daily thiamine folic acid alcohol cessation advised- she strongly declines any concern for withdrawal. Will monitor. Counseled to let us know if any withdrawal symptoms. [facility]y gets regular infusions via LACW port DVT ppx/Hx of DVT upper ext after vasc procedure: SCDS. Chemoprophylaxis C/I with gi bleeding Dispo: PCU tele. On iv ppi and octreotide for UGI bleed. Trending labs. Might need repeat EGD. Updated mom at bedside Admission and Anticipated Discharge Date Admission Date: December 21, 2021 Subjective She felt fine this morning but was nauseous and lightheaded after coming from EGD, once he ambulated back to bed from bathroom. No chest pain, abd pain, fever, chills, shortness of breath. Last bloody BM was last night. States she is hungry. Physical Exam Physical Exam: General: Sitting comfortably in bed, not in distress, on room air HEENT: EOMI, DORIS, MMM Chest: Left port-A-cath in place. Clear breath sounds bilaterally, no wheezes or crackles CVS: Regular rate and rhythm, normal heart sounds, no murmur Abdomen: Soft, non tender, not distended, normal bowel sounds Neuro: Awake, alert, oriented, conversing well, non focal Extremities: No cyanosis, clubbing or edema Results & Data Results & Data ([facility] [place]) Vital Signs (Past 12 Hours) Vital Signs Temp Pulse Pulse Resp BP Pulse Ox O2 Del Method 12/22/21 13:35 36.7 C 76 18 136/95 100 Room Air 12/22/21 12:58 92 H 16 114/91 100 Room Air 12/22/21 12:43 94 H 16 140/86 100 Room Air 12/22/21 12:27 104 H 16 123/76 100 Room Air 12/22/21 11:17 36.9 C 91 H 16 125/85 100 Room Air 12/22/21 07:33 36.6 C 92 H 18 127/78 100 Room Air 12/22/21 07:51 100 H Laboratory Results Short CBC 12/21/21 12/22/21 12/22/21 Range/Units 18:47 02:08 10:01 WBC 3.27 L (4.8-10.8) K/ul Hgb 9.5 L 8.4 L 8.7 L (12.0-16.0) g/dl Hct 27.8 L 25.1 L 25.8 L (34.1-44.9) % Plt Count 152 (130-400) K/uL 12/22/21 Range/Units 14:27 WBC (4.8-10.8) K/ul Hgb 8.9 L (12.0-16.0) g/dl Hct 27.0 L (34.1-44.9) % Plt Count (130-400) K/uL BMP 12/22/21 02:08 Sodium 133 L Potassium 3.6 Chloride 105 Carbon Dioxide 22 BUN 7 Creatinine 0.48 L Glucose 94 Calcium 8.0 L Liver Function 12/22/21 Range/Units 02:08 Total Bilirubin 1.4 H (0.2-1.0) mg/dl AST 31 (13-39) U/L ALT 25 (7-52) U/L Alkaline Phosphatase 137 H (34-104) U/L Albumin 2.9 L (3.4-5.0) gm/dl Medications Administered Current Inpatient Medications Albuterol (Albuterol 0.083% Nebu Soln 3 Ml Vial) 2.5 mg INH Q4H PRN; Protocol PRN Reason: Wheezing Stop: 01/20/22 18:19 Amitriptyline HCl (Amitriptyline Hcl 100 Mg Tab) 100 mg PO HS FRANCISCA Stop: 01/20/22 20:59 Last Admin: 12/21/21 20:20 Dose: 100 mg Famotidine (Famotidine 20 Mg Tab) 20 mg PO BID FRANCISCA Stop: 01/20/22 20:59 Last Admin: 12/22/21 13:21 Dose: Not Given Folic Acid (Folic Acid 1 Mg Tab) 1 mg PO QAM FRANCISCA Stop: 01/20/22 18:19 Last Admin: 12/22/21 13:22 Dose: Not Given Hydroxyzine HCl (Hydroxyzine Hcl 10 Mg Tab) 10 mg PO HS PRN PRN Reason: Anxiety Stop: 01/20/22 18:19 Last Admin: 12/22/21 00:06 Dose: 10 mg Pantoprazole Sodium 40 mg/ (Dextrose) 100 mls @ 20 mls/hr IV Q5H FRANCISCA Stop: 01/20/22 15:14 Last Admin: 12/22/21 13:44 Dose: 8 mg/hr, 20 mls/hr Octreotide Acetate 500 mcg/ (Dextrose) 100.5 mls @ 10.05 mls/hr IV .Q10H FRANCISCA Stop: 12/23/21 18:44 Last Admin: 12/22/21 13:27 Dose: 50 mcg/hr, 10.1 mls/hr Lorazepam (Lorazepam 1 Mg Tab) 1 mg PO ONE PRN; Protocol PRN Reason: EtoH Withdrawal AWSS 6,7,8,9,10 Ondansetron HCl (Ondansetron Inj 2 Mg/Ml 2 Ml Vial) 4 mg IV Q6H PRN PRN Reason: Nausea Stop: 01/20/22 18:19 Last Admin: 12/22/21 13:48 Dose: 4 mg Ondansetron HCl (Ondansetron Inj 2 Mg/Ml 2 Ml Vial) 4 mg IV Q6H PRN PRN Reason: Nausea And Vomiting Stop: 01/21/22 13:45 Thiamine HCl (Thiamine Hcl 100 Mg Tab) 100 mg PO QAM [facility] Stop: 01/20/22 18:19 Last Admin: 12/22/21 13:22 Dose: Not Given Topiramate (Topiramate 50 Mg Tab) 50 mg PO BID [facility] Stop: 01/20/22 20:59 Last Admin: 12/22/21 13:22 Dose: Not Given Venlafaxine HCl (Venlafaxine Hcl 50 Mg Tab) 50 mg PO BID [facility] Stop: 01/20/22 20:59 Last Admin: 12/22/21 13:22 Dose: Not Given Vitamin D (Cholecalciferol 5,000 Units 125 Mcg Tab) 5,000 units PO DAILY [facility] Stop: 01/21/22 08:59 Last Admin: 12/22/21 13:21 Dose: Not Given Vitamin D (Cholecalciferol 1,000 Units 25 Mcg Tab) 1,000 units PO DAILY [facility] Stop: 01/21/22 08:59 Last Admin: 12/22/21 13:21 Dose: Not Given
[2021-12-22 18:57] LABS: Hematocrit (blood only) 25.3 % (34.1-44.9); Hemoglobin 8.6 g/dl (12.0-16.0)
[2021-12-22] MEDS: AMITRIPTYLINE HCL 100 MG TAB PO SCH (19:41)
[2021-12-23] MEDS: PANTOprazole 40 MG in DEXTROSE 5% 100 ML IV SCH ×6 (01:04→22:11)
[2021-12-23 02:27] LABS: Hematocrit (blood only) 25.6 % (34.1-44.9); Hemoglobin 8.3 g/dl (12.0-16.0); Mean Corpuscular Hgb Conc 32.4 g/dL (32.0-36.0); Mean Platelet Volume 9.9 fL (9.4-12.3); Platelet Count 144 K/uL (130-400); RDW Coefficient of Variation 12.8 % (11.5-14.5); RDW Standard Deviation 50.4 fL (36.4-46.3); Red Blood Count 2.37 M/uL (3.93-5.22); White Blood Count 2.93 K/ul (4.8-10.8)
[2021-12-23 02:59] LABS: BUN Creatinine Ratio 10.9 (10-20); Bilirubin Direct 0.3 mg/dl (0-0.2); Bilirubin,Total 0.9 mg/dl (0.2-1.0); Calcium 8.2 mg/dl (8.5-10.1); Creatinine Clr Calc Pharmacy 179.9 ml/min; Est GFR (African American) 143.8 ml/min; Est GFR (Non-African American) 124.1 ml/min; Potassium 3.8 mmol/L (3.5-5.1)
[2021-12-23] MEDS: OCTREOTIDE ACETATE 500 MCG in DEXTROSE 5% 100 ML IV SCH (07:59)
[2021-12-23 11:01] LABS: Hematocrit (blood only) 26.4 % (34.1-44.9)
[2021-12-23] MEDS: TOPIRAMATE 50 MG TAB PO SCH ×2 (12:01→22:16)
[2021-12-23] MEDS: FOLIC ACID 1 MG TAB PO SCH (12:01)
[2021-12-23] MEDS: THIAMINE HCL 100 MG TAB PO SCH (12:02)
[2021-12-23] MEDS: FAMOTIDINE 20 MG TAB PO SCH ×2 (12:02→22:16)
[2021-12-23] MEDS: CHOLECALCIFEROL 5,000 UNITS 125 MCG TAB PO SCH (12:02)
[2021-12-23] MEDS: CHOLECALCIFEROL 1,000 UNITS 25 MCG TAB PO SCH (12:02)
[2021-12-23] MEDS: VENLAFAXINE HCL 50 MG TAB PO SCH ×2 (12:02→22:16)
--- NOTE | 2021-12-23 14:34 | Hospitalist Progress Note ---
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 1) UGIB d/t bleeding gastrojejunal ulcer 2) Acute blood loss anemia H/o iron def anemia with h/o iron transfusion in setting of gastric by pass surgery 2008 in [facility] H/o GEJ stricture - H&H trended down now stabilized; Hb 13.9->10.3->9.5->8.4->8.7->8.9 - Hemodynamically stable - S/p EGD on 12/22- found to have actively bleeding gastrojejunal ulcer with a visible vessel unable to cauterize and hemostatic spray applied. Normal esophagus, gastric bypass and examined jejunum. Plan: - Patient is started on clear liquid diet as per GI recommendation. We will continue to monitor for bleeding. -No aspirin, ibuprofen, naproxen or other NSAID's -Continue PPI and ocreotide for 1 more day. -Might need repeat EGD if bleeding recurs Elevated LFTS Total bilirubin downtrended; ALP- 141. CT A/P show fatty liver findings hx of cholecystectomy MRCP unremarkable. Alcohol abuse pt drinks 6 beers every other day place on awss scale, prn ativan daily thiamine folic acid alcohol cessation advised- she strongly declines any concern for withdrawal. Will monitor. Counseled to let us know if any withdrawal symptoms. MS follows [facility] neurology gets regular infusions via LACW port DVT ppx/Hx of DVT upper ext after vasc procedure: SCDS. Chemoprophylaxis C/I with gi bleeding Dispo: On iv ppi and octreotide for UGI bleed. Trending labs. Might need repeat EGD. Admission and Anticipated Discharge Date Admission Date: December 21, 2021 Subjective Patient seen and examined at bedside. She said she had a bowel movement yesterday; no more melena. She is thirsty and wants to drink water. No complaint of nausea, vomiting, abdominal pain Review of Systems Review of Systems: All systems reviewed & are unremarkable except as noted in Subjective Physical Exam Physical Exam: General: Sitting comfortably in bed, not in distress, on room air HEENT: EOMI, DORIS, MMM Chest: Clear breath sounds bilaterally, no wheezes or crackles CVS: Regular rate and rhythm, normal heart sounds, no murmur Abdomen: Soft, non tender, not distended, normal bowel sounds Neuro: Awake, alert, oriented, conversing well, non focal Extremities: No cyanosis, clubbing or edema Results & Data Results & Data ([facility]) Vital Signs (Past 12 Hours) Vital Signs Temp Pulse Pulse Resp BP Pulse Ox O2 Del Method 12/23/21 11:34 36.5 C 75 17 116/79 100 Room Air 12/23/21 09:48 71 12/23/21 07:27 36.8 C 81 19 122/86 100 Room Air 12/23/21 03:42 36.8 C 85 16 117/69 99 Room Air COVID-19 Results Results COVID-19 Adm Lab Results: RBC 2.37 M/uL (3.93-5.22) L 12/23/21 WBC 2.93 K/ul (4.8-10.8) L 12/23/21 Hgb 9.0 g/dl (12.0-16.0) L 12/23/21 Hct 26.4 % (34.1-44.9) L 12/23/21 Plt Count 144 K/uL (130-400) 12/23/21 Neutrophils (%) (Auto) 55.3 % 12/22/21 Lymphocytes (%) (Auto) 24.5 % 12/22/21 Monocytes # (Auto) 0.54 K/uL (0.24-0.82) 12/22/21 Eosinophils # (Auto) 0.09 K/uL (0-0.50) 12/22/21 Immature Granulocyte % (Auto) 0.3 % 12/22/21 Neutrophils # (Auto) 1.81 K/uL (1.4-6.5) 12/22/21 Lymphocytes # (Auto) 0.80 K/uL (1.2-3.4) L 12/22/21 Monocytes # (Auto) 0.54 K/uL (0.24-0.82) 12/22/21 Eosinophils # (Auto) 0.09 K/uL (0-0.50) 12/22/21 Basophils # (Auto) 0.02 K/uL (0-0.2) 12/22/21 Immature Granulocyte # (Auto) 0.01 K/uL (0.00-0.02) 2 Na 135 mmol/L (136-145) L 12/23/21 K 3.8 mmol/L (3.5-5.1) 12/23/21 Cl 108 mmol/L (98-107) H 12/23/21 CO2 20 mmol/L (21-32) L 12/23/21 Anion Gap 7 (3-11) 12/23/21 BUN 6 mg/dl (6-23) 12/23/21 Creatinine 0.55 mg/dl (0.6-1.2) L 12/23/21 BUN/Creatinine Ratio 10.9 (10-20) 12/23/21 Glucose Level 118 mg/dl (70-99(Fasting)) H 12/23/21 Ca 8.2 mg/dl (8.5-10.1) L 12/23/21 Phosphorus Level 3.7 mg/dl (2.5-4.9) 12/21/21 Total Bilirubin 0.9 mg/dl (0.2-1.0) 12/23/21 Direct Bilirubin 0.3 mg/dl (0-0.2) H 12/23/21 AST/SGOT 38 U/L (13-39) 12/23/21 ALT/SGPT 26 U/L (7-52) 12/23/21 Alkaline Phosphatase 141 U/L (34-104) H 12/23/21 Total Protein 5.0 gm/dl (6.0-8.3) L 12/23/21 Albumin 3.0 gm/dl (3.4-5.0) L 12/23/21 Globulin 2.0 gm/dl (2.5-4.0) L 12/22/21 Albumin/Globulin Ratio 1.5 (0.9-2) 12/22/21 Ferritin 203.0 ng/ml (8-388) 12/22/21 INR 1.1 (0.9-1.1) 12/21/21 SARS-CoV-2, RNA, NAAT NEGATIVE (NEGATIVE) 12/21/21
--- NOTE | 2021-12-23 14:45 | Gastroenterology Progress Note ---
Date of Service December 23, 2021 Assessment & Plan Admission and Anticipated Discharge Date Admission Date: December 21, 2021 Subjective Patient was seen and examined today, doing well, no vomiting or hematemesis, tolerated PO clear liquids. Had BM and less black than prior. On exam abdomen is soft and nontender. Labs: reviewed Hgb improved. Recommend: Continue IV PPI till tomorrow then switch to PO Omeprazole 40 mg Capsule BID, she was educated to open the capsule, sprinkle the granules on a table spoon of apple sauce and take it. Can stop Octreotide. Advance her diet tomorrow. Avoid alcohol. Repeat EGD as OP in 3 months to check healing. Recall GI if needed. Results & Data ([facility]) Vital Signs (Past 12 Hours) Vital Signs Temp Pulse Pulse Resp BP Pulse Ox O2 Del Method 12/23/21 11:34 36.5 C 75 17 116/79 100 Room Air 12/23/21 09:48 71 12/23/21 07:27 36.8 C 81 19 122/86 100 Room Air 12/23/21 03:42 36.8 C 85 16 117/69 99 Room Air
[2021-12-23 15:06] LABS: HBSAG NON-REACTIVE (NON-REACTIVE); Hepatitis A Antibody IgM NON-REACTIVE (NON-REACTIVE); Hepatitis B Core Antibody IgM NON-REACTIVE (NON-REACTIVE)
[2021-12-23] MEDS: miSOPROStoL 100 MCG TAB PO SCH (22:16)
[2021-12-23] MEDS: SUCRALFATE 1 GM/10 ML UDC PO SCH (22:16)
[2021-12-23] MEDS: AMITRIPTYLINE HCL 100 MG TAB PO SCH (22:17)
[2021-12-24] MEDS: PANTOprazole 40 MG in DEXTROSE 5% 100 ML IV SCH ×3 (02:17→12:09)
[2021-12-24 06:10] LABS: Hematocrit (blood only) 24.5 % (34.1-44.9); Hemoglobin 8.6 g/dl (12.0-16.0); Mean Corpuscular Hemoglobin 36.9 pg (25.0-34.0); Mean Corpuscular Hgb Conc 35.1 g/dL (32.0-36.0); Mean Corpuscular Volume 105.2 fL (80.0-100.0); Mean Platelet Volume 10.6 fL (9.4-12.3); Platelet Count 183 K/uL (130-400); RDW Coefficient of Variation 12.5 % (11.5-14.5); RDW Standard Deviation 47.2 fL (36.4-46.3); Red Blood Count 2.33 M/uL (3.93-5.22); White Blood Count 3.04 K/ul (4.8-10.8)
[2021-12-24 06:38] LABS: Albumin Globulin Ratio 1.5 (0.9-2); BUN Creatinine Ratio 4.8 (10-20); Bilirubin,Total 0.8 mg/dl (0.2-1.0); Calcium 8.1 mg/dl (8.5-10.1); Creatinine Clr Calc Pharmacy 159.2 ml/min; Est GFR (African American) 138.3 ml/min; Est GFR (Non-African American) 119.3 ml/min; Potassium 3.4 mmol/L (3.5-5.1)
[2021-12-24] MEDS: TOPIRAMATE 50 MG TAB PO SCH (08:00)
[2021-12-24] MEDS: miSOPROStoL 100 MCG TAB PO SCH (08:01)
[2021-12-24] MEDS: SUCRALFATE 1 GM/10 ML UDC PO SCH (08:01)
[2021-12-24] MEDS: FAMOTIDINE 20 MG TAB PO SCH (08:01)
[2021-12-24] MEDS: CHOLECALCIFEROL 5,000 UNITS 125 MCG TAB PO SCH (08:01)
[2021-12-24] MEDS: THIAMINE HCL 100 MG TAB PO SCH (08:01)
[2021-12-24] MEDS: VENLAFAXINE HCL 50 MG TAB PO SCH (08:01)
[2021-12-24] MEDS: FOLIC ACID 1 MG TAB PO SCH (08:02)
[2021-12-24] MEDS: CHOLECALCIFEROL 1,000 UNITS 25 MCG TAB PO SCH (08:02)
--- NOTE | 2021-12-24 16:24 | Discharge Summary ---
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 She woke up this morning around 0630 to let dog out and felt nauseated and like her stomach was, "gurgling." She went to the bathroom and had a bowel movement and it was black and tarry. She talked to her mom and EMS was summoned. While waiting for ambulance she had RUQ pain. She rates pain about a 2/10. It is still there when she presses on it. Pain started after BM. Pain was nonradiating and described as stabbing initially. She does take a daily PPI, omeprazole 20mg bid, as well as famotidine. She denies any vomiting. She had normal bowel movements yesterday but was loose. Denies f/c/s, chest pain, sob, cough, URI sx, hematemesis, dysuria, increased urg/freq with urination and hematuria. She has hx of gastric bypass in 2008 at [facility]. She has prior hx of PUD in 2010 post gastric by pass. She also has hx of upper ext DVT after having a port placed. She does have a port in L chest wall due to infusions for hx of MS. She denies taking any NSAIDS, blood thinners or aspirin. She denies prior hx of hemorrhoids.Patient does drink alcohol approximately 6 beers every other day. In ED patient remained hemodynamically stable although she was mildly tachycardic. Lab work notable for hemoglobin 10.3 and 30.5, total bilirubin 2.3, AST 41, ALT 170 and urinalysis +3 leukocyte esterase but negative bacteria. CT abdomen pelvis revealed wall thickening and fat stranding about the region of the gastric bypass compatible with an infectious or inflammatory process. No enteric contrast in the excluded stomach to suggest dehiscence. Also noted was hepatic steatosis, hepatomegaly and interval development of venous collaterals in the abdominal wall which may reflect portal hypertension. She was started on IV Protonix bolus and drip as well as IV famotidine and IV fluid. She has had no further melena. Admission Exam Per Admitting Provider General Appearance:Obese, no apparent distress Head: normocephalic, Atraumatic Eyes: normal inspection, EOMI Neck: supple, Trachea midline Respiratory/Chest: Normal breath sounds, CTA, No accessory muscle use, +Port on Left sidie of chest Cardiovascular: S1, S2, No murmur Abdomen/GI:Soft, RUQ, RLQ ,mild tender, Bowel sounds present, no guarding or rigidity. Extremities/Musculoskeletal:normal inspection, no edema Neurologic/Psych:AAOX3, grossly no focal neurological deficits Skin: normal color, warm Principal Diagnosis 1) UGIB d/t bleeding gastrojejunal ulcer 2) Acute blood loss anemia Discharge Exam General: Sitting comfortably in bed, not in distress, on room air HEENT: EOMI, DORIS, MMM Chest: Clear breath sounds bilaterally, no wheezes or crackles CVS: Regular rate and rhythm, normal heart sounds, no murmur Abdomen: Soft, non tender, not distended, normal bowel sounds Neuro: Awake, alert, oriented, conversing well, non focal Extremities: No cyanosis, clubbing or edema Discharge Data Allergies Allergy/AdvReac Type Severity Reaction Status Date / Time Sulfa (Sulfonamide Allergy Severe Hives Verified 08/18/20 19:15 Antibiotics) Cephalosporins Allergy Intermediate Hives Verified 08/18/20 19:15 hydrocodone Allergy Intermediate Itching Verified 08/18/20 19:15 methocarbamol Allergy Mild Rash Verified 08/18/20 19:15 clindamycin AdvReac Intermediate Heartburn Verified 08/18/20 19:15 Consultations 12/21/21 15:04 ED Decision to Admit Stat 12/21/21 15:27 Consult Gastroenterology Routine Procedures Performed Operation Date: 12/22/21 15:30 Actual Procedures p EGD Hemostasis - Anita Ha MD Ordered Studies 12/21/21 12:30 CT abd pelvis oral and IV con Stat 12/21/21 15:39 MR MRCP Routine Hospital Course (1) UGIB (upper gastrointestinal bleed): (2) Acute blood loss anemia (ABLA): (3) Anemia: (4) Elevated LFTs: (5) Alcohol abuse: (6) Multiple sclerosis: (7) Gastric bypass status for obesity: Plan Patient is a 31 yr old F who has hx of gastric bypass, MS, 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 Patient was started on IV Protonix. GI service was consulted. She underwent endoscopy on 12/22; was found to have actively bleeding gastrojejunal ulcer with visible vessel. The lesion was not able to be cauterized; hemostatic spray was applied. Her hemoglobin on presentation was 10.3; was 12.9 in 09/2021. Her hemoglobin dropped to 8.4 a day after the hospitalization; remained stable in the range of 8-9 for next 2 days. She was also put on octreotide drip after the EGD. Patient's diet was advanced gradually to general diet on discharge. She was discharged on omeprazole 40 mg twice daily, sucralfate and metoprolol. She was instructed to follow-up with her PCP and GI. Total Time Total Time Spent Total Time Spent (In Minutes): 40 Total Time Includes: Examination of the Patient, Discharge Planning, Medication Reconciliation, Communication With Other Providers and Other Discharge Plan Discharge Items Patient Disposition: Home - Self-Care Reason For Visit: MELENA, UGIB Discharge Diagnosis: (1) UGIB (upper gastrointestinal bleed): (2) Acute blood loss anemia (ABLA): (3) Anemia: (4) Elevated LFTs Activity: Resume your previous activity Non-emergency contact: Primary Care Provider Call non-emergency contact if: you have any medication questions and your symptoms worsen Follow-up/Referrals: Kimberly Figueroa MD [Primary Care Provider] - Anita Ha MD [Physician] - Diet: Regular Addtl Attending Provider Instructions: Please take following medications as prescribed: 1) Omeprazole 40mg twice daily 2) Misoprostol 100mcg tablet twice daily 3) Sucralfate 100mg 1g PO twice daily. Follow up with GI doctor in 2-3 weeks. Follow up with PCP in one week. Stand-Alone Forms: Private.Me, Smoking Cessation Medications and DC Order Prescriptions: New sucralfate 100 mg/mL Suspension 1 g PO BID Qty: 414 0RF misoprostol 100 mcg Tablet 100 mcg PO BID Qty: 60 0RF Continued fexofenadine 180 mg Tablet 180 mg PO DAILY PRN (Reason: Allergy Symptoms) cyanocobalamin (vitamin B-12) 1,000 mcg/mL Solution 1,000 mcg IM MONTHLY Rx Instructions: HAS APPT. NEXT WEEK. venlafaxine 50 mg tablet 50 mg PO BID Rx Instructions: TAKE THIS MEDICATION WITH FOOD hydroxyzine HCl 10 mg tablet 10 mg PO HS PRN (Reason: Anxiety) amitriptyline 100 mg tablet 100 mg PO HS medroxyprogesterone 150 mg/mL suspension 150 mg IM .Q12W Rx Instructions: HAD IN JULY 2020. cranberry 500 mg Capsule 500 mg PO DAILY cholecalciferol (vitamin D3) [Vitamin D3] 1,000 unit Capsule 1,000 unit PO DAILY topiramate 50 mg tablet 50 mg PO BID cholecalciferol (vitamin D3) [Vitamin D3] 5,000 unit Tablet 5,000 unit PO DAILY rizatriptan 10 mg tablet 10 mg PO DIRECTED PRN (Reason: Headache) Rx Instructions: TAKE ONE TABLET AT ONSET OF HEADACHE MAY REPEAT DOSE IN 2 HOURS IF NEEDED Ocrevus 30 mg/mL Solution 300 mg IV .[id number] Rx Instructions: HAD IN MAY 2020. albuterol sulfate 2.5 mg /3 mL (0.083 %) Solution For Nebulization 2.5 mg INHALATION Q4H PRN (Reason: Wheezing) albuterol sulfate [ProAir HFA] 90 mcg/actuation Hfa Aerosol Inhaler 2 puff INHALATION Q4H PRN (Reason: Wheezing) promethazine 25 mg Tablet 25 mg PO Q6H PRN (Reason: Nausea or Vomiting) diphenhydramine-acetaminophen [Tylenol PM Extra Strength] 25-500 mg Tablet 1 tab PO TID PRN (Reason: Itching) budesonide 32 mcg/actuation spray,non-aerosol 1 spray intranasal BID PRN (Reason: Allergy Symptoms) azelastine 137 mcg (0.1 %) aerosol,spray 1 spray intranasal BID PRN (Reason: Allergy Symptoms) omeprazole 40 mg capsule,delayed release(DR/EC) 40 mg PO BID Qty: 60 0RF Discontinued famotidine 20 mg tablet 20 mg PO BID Discharge Orders: Discharge Order (Routine); Ordered 12/24/21 Ordered By: Lazarus Florez Admission Data Admit Date/Time: 12/21/21 15:27 Attending Provider: Lazarus Florez Admit Provider: Ajit Starks Primary Care Provider: Kimberly Figueroa Other Providers: Ajit Starks ; Anita Ha ; Alek Matthew Other Interventions: Discharge Summary Assessment (RN) Last Done: 12/24/21 13:19
== END 2021-12-24 14:43 | disposition home or self-care (01) | DRG 378 ==
LOC: ED 12:00 → SUATTDRO 15:27 → 4W 15:27

== ENCOUNTER 2022-07-31 12:43 | Inpatient (IN) ==
--- NOTE | 2022-07-31 13:37 | XRay Report ---
XR chest 1V not portable HISTORY: 32 years-old Female weakness acute weakness COMPARISON: 11/05/2021 TECHNIQUE: PA view of the chest FINDINGS: Cardiomediastinal and hilar silhouettes are within normal limits. Left IJ [id number] catheter dist al tip is noted in the expected location of the mid SVC. No pneumothorax, pleural effusion, airspace consolidation or pulmonary edema. Bones appear grossly intact. Cholecystectomy with surgical clips in the epigastric distribution. IMPRESSION: No acute process. ACT 112: Negative or not required by law. The above report was generated using voice recognition software. It may contain grammatical, syntax o r spelling errors. Electronically signed by: Ky Mcdaniel M.D. 07/31/2022 1:35 PM
--- NOTE | 2022-07-31 13:37 | XRay Report ---
LEFT KNEE 3 VIEWS CLINICAL HISTORY: Fall with left knee pain. FINDINGS: AP, crosstable lateral, and sunrise views of the left knee are compared to study dated 2020. The skeletal structures are well mineralized. No fracture is seen. The joint spaces are maintai isha. Mild apparent hyperflexion on the lateral view may be related to positioning. There is no signif icant joint effusion. Prepatellar soft tissue swelling is observed. IMPRESSION: Mild soft tissue swelling with no fracture identified. Electronically signed by: Don Laird M.D. 07/31/2022 1:36 PM
[2022-07-31 13:55] LABS: Basophils # (auto) 0.03 K/uL (0-0.2); Basophils % (auto) 0.6 %; Eosinophils # (auto) 0.06 K/uL (0-0.50); Eosinophils % (auto) 1.3 %; Hemoglobin 12.5 g/dl (12.0-16.0); Immature Granulocytes # (auto) 0.01 K/uL (0.01-0.20); Immature Granulocytes % (auto) 0.2 %; Lymphocytes # (auto) 0.88 K/uL (1.2-3.4); Lymphocytes % (auto) 18.6 %; Mean Corpuscular Hemoglobin 34.2 pg (25.0-34.0); Mean Corpuscular Hgb Conc 34.7 g/dL (32.0-36.0); Mean Corpuscular Volume 98.6 fL (80.0-100.0); Mean Platelet Volume 9.7 fL (9.4-12.4); Monocytes # (auto) 0.61 K/uL (0.11-0.59); Monocytes % (auto) 12.9 %; Neutrophils # (auto) 3.13 K/uL (1.40-6.50); Neutrophils % (auto) 66.4 %; Platelet Count 215 K/uL (130-400); RDW Coefficient of Variation 12.9 % (11.5-14.5); RDW Standard Deviation 46.3 fL (36.4-46.3); Red Blood Count 3.65 M/uL (4.20-5.40); White Blood Count 4.72 K/ul (4.8-10.8)
[2022-07-31 14:17] LABS: Albumin Globulin Ratio 1.1 (0.9-2); Albumin Level 3.5 gm/dl (3.4-5.0); Bilirubin,Total 2.3 mg/dl (0.2-1.0); Creatinine Clr Calc Pharmacy 180.7 ml/min; Est GFR (African American) 147.4 ml/min; Est GFR (Non-African American) 127.2 ml/min; Globulin 3.1 gm/dl (2.5-4.0); Potassium 3.6 mmol/L (3.5-5.1); Total Protein 6.6 gm/dl (6.0-8.3)
--- NOTE | 2022-07-31 14:18 | Emergency Department Note ---
Impression & Plan Bilateral leg weakness, Knee contusion, Fall ED Provider Note Provider: Benjamín Evans MD DATE OF SERVICE: 07/31/2022 CHIEF COMPLAINT: Leg weakness, ongoing nausea issues HISTORY OF PRESENT ILLNESS: Patient is a 32-year-old female history of gastric bypass, gastric ulcer this past December blood, as well as multiple sclerosis presenting here referred from her PCPs office today. Patient relays that she was to go endoscopy today to evaluate a gastric ulcer that she had in December that cause bleeding. Denies any black or bloody stools. Still having nausea issues. However over the last several weeks has some increasing leg weakness prickly last day or 2 and did fall twice yesterday by the report has her legs just gave out on her and stated that they felt like Jell-O. Denies significant numbness. Denies any issues with the arms. Denies headache visual changes or dizziness. Patient relays that she went to come to the hospital yesterday and made to see her PCP today who referred her here. She has concerns about her MS flaring. Did have a Ocrevus infusion in May and reportedly had an MRI in June showing some new lesions. Fears that her MS is flaring again as this is similar to previous episodes. Follows with [facility] neurology. PCP evaluated and referred here she believes the patient require hospitalization and further neurological evaluation. Denies any abdominal pain. States he feels hungry does not eating well and losing weight as she gets nauseous. PAST MEDICAL HISTORY: As noted above MEDICATIONS: Reviewed home medications but did not take morning meds today SOCIAL HISTORY: Lives at home with parents PHYSICAL EXAM: GENERAL: alert and oriented in no acute distress on stretcher Head: normocephalic and atraumatic EYES: No injection, discharge or icterus. PERRL, EOMI. NECK: Trachea midline. Supple. ENT: Mucous membranes pink and moist. Pharynx without erythema or exudate. LUNGS: Airway patent. No retractions. Breath sounds clear with good air entry bilaterally. HEART: Regular rate and rhythm. No chest wall tenderness ABDOMEN: Soft and non-tender, without guarding or rebound. SKIN: Acyanotic, warm, dry, without rashes EXTREMITIES: Without swelling or obvious deformity although there is an approximately 3 cm area of slight swelling and minimal contusion with tenderness of the medial left knee. No significant skin wound here. NEUROLOGICAL: No focal deficits. No aphasia. No facial droop or slurred speech. Normal strength and tone in the extremities on exam in the bed with good straight leg raise as well off the bed. Sensation to gross touch normal. EK bpm normal sinus rhythm. No PVC or PAC. No acute ST segment elevation or depression with a QTc of 441. CONTINUOUS CARDIAC MONITORING: was ordered and showed a heart rate of 60s-70s bpm in normal sinus rhythm GCS 15. Patient's laboratory studies and imaging reviewed. Differential includes Infection, dehydration, metabolic abnormality, hypo/hyperglycemia, electrolyte disturbance, anemia, hypoxia, cardiac sources, intracerebral event, toxicologic, neurologic, as well as other pathologies. IMPRESSION/MEDICAL DECISION MAKING: Patient referred from PCP where she was evaluated today. Patient evidently with worsening weakness. Denies bladder or bowel dysfunction or significant back pain. Complained of some knee pain but no obvious deformity on exam and x-rays are reassuring. Likely more musculoskeletal in nature. Not having visual changes, headaches, upper extremity issues, or dizziness. Discussed with her to evaluate for MS MRIs of the brain and possibly cervical spine to evaluate for lesions would be recommended. Did have MRI in June and is on therapy with Ocrevus. Denies other acute infectious symptoms. Afebrile here. Blood work wi thout significant anemia. Very slight leukopenia. Slight hyponatremia but no severe electrolyte abnormalities signs of acute renal dysfunction. Does not seem consistent with pancreatitis or hepatitis and has a benign abdomen. Did not take her morning meds. Given some Tylenol for pain as well as a dose of her home omeprazole especially in light of her history of GI bleed although she denies active bleeding symptoms at this time. Unfortunately the patient states she is unable to tolerate MRIs unless under full sedation with anesthesia and that even benzodiazepines such as Ativan are effective. Patient and mother are very concerned about her weakness and her safety at home given the falls. They are requesting further evaluation here and discussed with them obtaining a sedated MRI may take some time. Not having acute deficits and again I doubt acute meningitis or CVA. Based on the wishes discussed with the hospitalist further observation and work-up here. Urinalysis ordered to exclude possible infectious source that could be flaring symptoms. DIAGNOSIS: Fall, leg weakness, left knee pain DISPOSITION: Hospitalist will evaluate Patient was agreeable with this plan. Past Med/Surg History Medical History Acute blood loss anemia (ABLA) Asthma exacerbation Depression Elevated LFTs Elevated uric acid in blood Encounter for pre-operative examination History of deep vein thrombosis History of multiple sclerosis Hx of peptic ulcer Iron deficiency anemia Melena Migraine Multiple sclerosis Obesity Patellofemoral dysfunction of right knee Postgastric surgery syndrome UGIB (upper gastrointestinal bleed) Surgical History Gastric bypass status for obesity History of gastric bypass History of insertion of tunneled central venous catheter (CVC) with port History of liver biopsy S/P cholecystectomy S/P surgery on nasal septum Family History Other Diabetes Hypertension Social History Smoking Status: Never smoker Hx Alcohol Use: No Hx Substance Use: No Preferred Language: Frisian Communication Ability: Effective Hydro Technician Required: No Beliefs That Will Affect Care: None marital status: Single Current Living Situation: Parent current occupational status: unemployed and disabled current occupation: disabled 2/2 to MS dx at 18 Feels Safe at Home: Yes Safety Concerns: Feels Safe At This Time Assistive Devices: None Allergies Allergies Allergy/AdvReac Type Severity Reaction Status Date / Time Sulfa (Sulfonamide Allergy Severe Hives Verified 07/31/22 15:20 Antibiotics) Cephalosporins Allergy Intermediate Hives Verified 07/31/22 15:20 hydrocodone Allergy Intermediate Itching Verified 07/31/22 15:20 methocarbamol Allergy Mild Rash Verified 07/31/22 15:20 clindamycin AdvReac Intermediate Heartburn Verified 07/31/22 15:20 Home Meds Home Medications Medication Instructions Recorded Confirmed albuterol sulfate 2.5 mg/3 mL 2.5 mg inhalation Q4H PRN Wheezing 12/26/18 07/31/22 (0.083 %) solution for nebulization albuterol sulfate 90 mcg/actuation 2 puff inhalation Q4H PRN Wheezing 12/26/18 0 07/31/22 aerosol inhaler (ProAir HFA) azelastine 137 mcg (0.1 %) nasal 1 spray intranasal BID PRN Allergy 12/26/18 07/31/22 spray aerosol Symptoms budesonide 32 mcg/actuation nasal 1 spray intranasal BID PRN Allergy 12/26/18 07/31/22 spray Symptoms cholecalciferol (vitamin D3) 125 5,000 unit PO DAILY 12/26/18 07/31/22 mcg (5,000 unit) tablet (Vitamin D3) cholecalciferol (vitamin D3) 25 1,000 unit PO DAILY 12/26/18 07/31/22 mcg (1,000 unit) capsule (Vitamin D3) cranberry 500 mg capsule 500 mg PO DAILY 12/26/18 07/31/22 cyanocobalamin (vitamin B-12) 1,000 mcg IM MONTHLY 12/26/18 07/31/22 1,000 mcg/mL injection solution hydroxyzine HCl 10 mg tablet 10 mg PO HS PRN Anxiety 12/26/18 07/31/22 medroxyprogesterone 150 mg/mL 150 mg IM .EVERY 3 MONTHS 12/26/18 07/31/22 intramuscular suspension ocrelizumab 30 mg/mL intravenous 300 mg IV .[id number] 12/26/18 07/31/22 solution (Ocrevus) promethazine 25 mg tablet 25 mg PO Q6H PRN Nausea or Vomiting 12/26/18 07/31/22 rizatriptan 10 mg tablet 10 mg PO DIRECTED PRN Headache 12/26/18 07/31/22 topiramate 50 mg tablet 50 mg PO BID 12/26/18 07/31/22 ferrous sulfate 325 mg (65 mg 325 mg PO Q OTHER DAY 07/31/22 07/31/22 iron) tablet loratadine 10 mg tablet 10 mg PO QAM 07/31/22 07/31/22 misoprostol 100 mcg tablet 100 mcg PO [facility] 07/31/22 07/31/22 omeprazole 40 mg capsule,delayed 40 mg PO [facility] 07/31/22 07/31/22 release pediatric multivitamin no.76 1 tab PO DAILY 07/31/22 07/31/22 (Flintstones Complete chewable tablet) sucralfate 100 mg/mL oral 1 g PO [facility]HS 07/31/22 07/31/22 suspension trazodone 100 mg tablet 100 mg PO HS 07/31/22 07/31/22 venlafaxine 75 mg tablet 75 mg PO [facility]HS 07/31/22 07/31/22 Results & Data (ED) Vital Signs Vital Signs - 24 hr 07/31/22 12:55 07/31/22 14:43 Temperature 36.7 C Temperature Source Temporal Artery Scan Pulse Rate 80 67 Pulse Rate from SpO2 Sensor 71 Pulse Rhythm Regular Pulse Strength Normal Respiratory Rate 18 16 Respiratory Effort / Characteristics Non-Labored Spontaneous Respiratory Depth Normal Respiratory Pattern Regular Blood Pressure 129/92 131/98 Blood Pressure Mean 104 109 Blood Pressure Position Sitting Pulse Oximetry 100 99 Oxygen Delivery Method Room Air Sepsis Recent Fever Within 48 Hours No Sepsis New/Unexplained Change in Mental Status No Sepsis Action Taken by Nursing No Action Required Laboratory Data 07/31/22 13:41 07/31/22 13:41 Lab Results 07/31/22 07/31/22 07/31/22 Range/Units 13:41 13:41 14:04 WBC 4.72 L (4.8-10.8) K/ul RBC 3.65 L (4.20-5.40) M/uL Hgb 12.5 (12.0-16.0) g/dl Hct 36.0 L (37.0-47.0) % MCV 98.6 (80.0-100.0) fL MCH 34.2 H (25.0-34.0) pg MCHC 34.7 (32.0-36.0) g/dL RDW Std Deviation 46.3 (36.4-46.3) fL RDW Coeff of [place] 12.9 (11.5-14.5) % Plt Count 215 (130-400) K/uL MPV 9.7 (9.4-12.4) fL Immature Gran % (Auto) 0.2 % Neut % (Auto) 66.4 % Lymph % (Auto) 18.6 % [place] % (Auto) 12.9 % Eos % (Auto) 1.3 % Baso % (Auto) 0.6 % Neut # (Auto) 3.13 (1.40-6.50) K/uL Lymph # (Auto) 0.88 L (1.2-3.4) K/uL [place] # (Auto) 0.61 H (0.11-0.59) K/uL Eos # (Auto) 0.06 (0-0.50) K/uL Baso # (Auto) 0.03 (0-0.2) K/uL Immature Gran # (Auto) 0.01 (0.01-0.20) K/uL Sodium 133 L (136-145) mmol/L Potassium 3.6 (3.5-5.1) mmol/L Chloride 104 (98-107) mmol/L Carbon Dioxide 22 (21-32) mmol/L Anion Gap 7 (3-11) BUN 3 L (6-23) mg/dl Creatinine 0.50 L (0.6-1.2) mg/dl Est Cr Clr Drug Dosing 180.7 ml/min Est GFR ( Amer) 147.4 ml/min Est GFR (Non-Af Amer) 127.2 ml/min BUN/Creatinine Ratio 6.0 L (10-20) Glucose 98 (70-99(Fasting)) mg/dl Calcium 9.0 (8.6-10.3) mg/dl Total Bilirubin 2.3 H (0.2-1.0) mg/dl AST 22 (13-39) U/L ALT 19 (7-52) U/L Alkaline Phosphatase 157 H (34-104) U/L Total Protein 6.6 (6.0-8.3) gm/dl Albumin 3.5 (3.4-5.0) gm/dl Globulin 3.1 (2.5-4.0) gm/dl Albumin/Globulin Ratio 1.1 (0.9-2) HCG, Qual Negative (Negative) SARS-CoV-2, RNA, NAAT (NEGATIVE) 07/31/22 Range/Units 14:25 WBC (4.8-10.8) K/ul RBC (4.20-5.40) M/uL Hgb (12.0-16.0) g/dl Hct (37.0-47.0) % MCV (80.0-100.0) fL MCH (25.0-34.0) pg MCHC (32.0-36.0) g/dL RDW Std Deviation (36.4-46.3) fL RDW Coeff of [place] (11.5-14.5) % Plt Count (130-400) K/uL MPV (9.4-12.4) fL Immature Gran % (Auto) % Neut % (Auto) % Lymph % (Auto) % [place] % (Auto) % Eos % (Auto) % Baso % (Auto) % Neut # (Auto) (1.40-6.50) K/uL Lymph # (Auto) (1.2-3.4) K/uL [place] # (Auto) (0.11-0.59) K/uL Eos # (Auto) (0-0.50) K/uL Baso # (Auto) (0-0.2) K/uL Immature Gran # (Auto) (0.01-0.20) K/uL Sodium (136-145) mmol/L Potassium (3.5-5.1) mmol/L Chloride (98-107) mmol/L Carbon Dioxide (21-32) mmol/L Anion Gap (3-11) BUN (6-23) mg/dl Creatinine (0.6-1.2) mg/dl Est Cr Clr Drug Dosing ml/min Est GFR ( Amer) ml/min Est GFR (Non-Af Amer) ml/min BUN/Creatinine Ratio (10-20) Glucose (70-99(Fasting)) mg/dl Calcium (8.6-10.3) mg/dl Total Bilirubin (0.2-1.0) mg/dl AST (13-39) U/L ALT (7-52) U/L Alkaline Phosphatase (34-104) U/L Total Protein (6.0-8.3) gm/dl Albumin (3.4-5.0) gm/dl Globulin (2.5-4.0) gm/dl Albumin/Globulin Ratio (0.9-2) HCG, Qual (Negative) SARS-CoV-2, RNA, NAAT NEGATIVE (NEGATIVE) Administered Medications Misoprostol (Misoprostol 100 Mcg Tab) [address] [facility] Stop: 08/30/22 20:59 Last Admin: 07/31/22 20:22 Dose: 100 mcg Documented By: SARAY Ondansetron HCl (Ondansetron Inj 2 Mg/Ml 2 Ml Vial) 4 mg IV Q6H PRN PRN Reason: Nausea Stop: 08/30/22 14:49 Last Admin: 07/31/22 18:16 Dose: 4 mg Documented By: [id number] Pantoprazole Sodium (Pantoprazole 40 Mg Tab) [address] [facility]; Protocol Stop: 08/30/22 20:59 Last Admin: 07/31/22 20:22 Dose: 40 mg Documented By: SARAY Sucralfate (Sucralfate 1 Gm/10 Ml Udc) 1 gm PO [facility] Stop: 08/30/22 20:59 Last Admin: 07/31/22 20:23 Dose: 1 gm Documented By: SARAY Topiramate (Topiramate 50 Mg Tab) 50 mg PO BID [facility] Stop: 08/30/22 20:59 Last Admin: 07/31/22 20:22 Dose: 50 mg Documented By: SARYA Trazodone HCl (Trazodone Hcl 100 Mg Tab) 100 mg PO [facility] Stop: 08/30/22 20:59 Last Admin: 07/31/22 20:23 Dose: 100 mg Documented By: SARAY Venlafaxine HCl (Venlafaxine Hcl 50 Mg Tab) [address] [facility] Stop: 08/30/22 20:59 Last Admin: 07/31/22 20:22 Dose: 75 mg Documented By: SARAY Discontinued Medications Acetaminophen (Acetaminophen 500 Mg Tab) 1,000 mg PO NOW STA Stop: 07/31/22 14:44 Last Admin: 07/31/22 14:56 Dose: 1,000 mg Documented By: TRAVIS Pantoprazole Sodium (Pantoprazole 40 Mg Tab) 40 mg PO NOW STA Stop: 07/31/22 14:44 Last Admin: 07/31/22 14:56 Dose: 40 mg Documented By: Imaging Data Radiologist's Impression: Chest X-Ray 07/31/22 12:57 XR chest 1V not portable HISTORY: 32 years-old Female weakness acute weakness COMPARISON: 11/05/2021 TECHNIQUE: PA view of the chest FINDINGS: Cardiomediastinal and hilar silhouettes are within normal limits. Left IJ [id number] catheter distal tip is noted in the expected location of the mid SVC. No pneumothorax, pleural effusion, airspace consolidation or pulmonary edema. Bones appear grossly intact. Cholecystectomy with surgical clips in the epigastric distribution. IMPRESSION: No acute process. ACT 112: Negative or not required by law. The above report was generated using voice recognition software. It may contain grammatical, syntax or spelling errors. Electronically signed by: Ky Mcdaniel M.D. 07/31/2022 1:35 PM Knee X-Ray 07/31/22 13:02 LEFT KNEE 3 VIEWS CLINICAL HISTORY: Fall with left knee pain. FINDINGS: AP, crosstable lateral, and sunrise views of the left knee are compared to study dated 06/10/2020. The skeletal structures are well mineralized. No fracture is seen. The joint spaces are maintained. Mild apparent hyperflexion on the lateral view may be related to positioning. There is no significant joint effusion. Prepatellar soft tissue swelling is observed. IMPRESSION: Mild soft tissue swelling with no fracture identified. Electronically signed by: Don Laird M.D. 07/31/2022 1:36 PM Discharge Plan Visit Data Chief Complaint: Leg Weakness, Bilateral Stated Complaint: BILAT LEG WEAKNESS ED Provider: Benjamín Evans Discharge Problem: Bilateral leg weakness, Knee contusion, Fall Patient Disposition: Admitted As Inpatient Discharge Instructions Interventions: ED Discharge Assessment Last Done: 07/31/22 15:53 Knee contusion Qualifiers: Encounter type: initial encounter Laterality: left Qualified Code(s): S80.02XA - Contusion of left knee, initial encounter Fall Qualifiers: Encounter type: initial encounter Qualified Code(s): W19.XXXA - Unspecified fall, initial encounter
[2022-07-31] MEDS ORDERED: PANTOprazole 40 MG TAB PO STA (14:43)
[2022-07-31] MEDS ORDERED: ACETAMINOPHEN 500 MG TAB PO STA (14:43)
[2022-07-31] MEDS ORDERED: ALUMINUM/MAGNESIUM SUSP 30 ML UDC PO PRN (14:50)
[2022-07-31] MEDS ORDERED: MAGNESIUM HYDROXIDE SUSP 30 ML UDC PO PRN (14:50)
[2022-07-31] MEDS ORDERED: ONDANSETRON INJ 2 MG/ML 2 ML VIAL IV PRN (14:50)
[2022-07-31] MEDS ORDERED: POLYETHYLENE (MIRALAX) 17 GM PACK PO PRN (14:50)
[2022-07-31] MEDS ORDERED: ACETAMINOPHEN 325 MG TAB PO PRN (14:50)
--- NOTE | 2022-07-31 15:08 | History & Physical Report ---
Date of Service July 31, 2022 Assessment & Plan (1) Multiple sclerosis: (2) Bilateral leg weakness: (3) History of deep vein thrombosis: (4) Iron deficiency anemia: (5) History of gastric bypass: (6) Depression: Plan 32-year-old with multiple sclerosis presenting with bilateral leg weakness. Additional past medical history includes history of DVT, anemia, history of gastric bypass, migraines and depression. Brain MRI 06/27 with new enhancing demyelinating lesions. Repeat imaging to investigate further progression of disease. Neuro consult placed. Multiple sclerosis: Bilateral leg weakness: Follows with [facility] neurology Chronic pain Bilateral lower extremity weakness Last infusion May 2022; Ocrevus infusions Brain MRI 06/27: New enhancing presumably demyelinating lesions in the cortical/juxtacortical left temporal occipital lobe. Cervical and Thoracic MRI: Numerous cervical and thoracic cord demyelinating lesion without evidence of new lesions Outpatient PCP recommended repeat brain, cervical and thoracic MRI; historically done with sedation; discussed with MRI who will schedule for tomorrow 08/01/22 Patient historically does have sedation with all MRI's due to lower back pain and her inability to lie flat related to her Multiple Sclerosis. NPO after MN. Neurology consult placed History of DVT: Upper extremity following vascular surgery; not on any chronic anticoagulation Anemia: History of gastric bypass: Bleeding gastric ulcer 12/25; was due to undergo endoscopy today for follow-up Hemoglobin 12.5 Takes Flinstones vitamin; continue No need for GI consult at this time; reassess after Neuro concerns addressed; ideally have endoscopy as OPT as previously planned No overt signs of anemia Depression: Takes Effexor; continue H/O Migranes: Takes Rizatriptan Disposition: PCP:Dr. Figueroa Code Status: Full Code VTE Prophylaxis: Teds and SCDs for now I spent a total of 88 minutes coordinating, documenting, and providing care for this patient excluding time spent in the performance of separately billed services. All of the aforementioned completed while collaborating with the assigned attending physician for a full treatment plan. Please see their addendum for further details. History of Present Illness Chief Complaint: weakness Primary Care Provider: Kimberly Figueroa MD Ms. Jerome is a 32-year-old female who presented to the [facility] today from her outpatient PCP office after having experienced increasing weakness in her legs resulting in 2 falls yesterday after her legs felt like "Jell-O". She reports that she was standing at her front door waiting for her dad to come back inside and both of her legs gave out. She noted that she went and sat down and later on in the day something similar happened. She did not hit her head or lose consciousness with either fall. She denies any syncopal symptoms associated with the events. 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 Patient does follow with neurology in [place] and most recently had a brain MRI in 06/28 resulting in new MS lesions. She does take all previous infusions with her last 1 being 05/28. Her outpatient PCP recommended additional follow-up brain MRI to monitor for additional lesions with neurology follow-up. Brain MRI 06/27: New enhancing presumably demyelinating lesions in the cortical/juxtacortical left temporal occipital lobe. Cervical and Thoracic MRI: Numerous cervical and thoracic cord demyelinating lesion without evidence of new lesions. After review of EMR, patient historically does have sedation with all MRI's due to lower back pain and her inability to lie flat related to her Multiple Sclerosis. Patient reports that she has abstained from alcohol since January 2022 with her last drink being January 06, 2022. Patient denies tobacco use or recreational drug use. Patient denies headache, dizziness, visual changes, auditory changes, nausea, vomiting, diarrhea, bowel or bladder changes, recent trauma. Patient is sitting upright in her hospital bed AAOx4 and in no apparent distress. Patient hemodynamically stable. Patient sitting with her legs crossed underneath her and able to stretch them out independently. No focal or motor deficit appreciated, no decrease in sensation in the lower extremities and she has independent movement 5 out of 5 bilateral lower extremities. Patient will be admitted for further evaluation and management. Please see A/P for further details. Allergies Allergy/AdvReac Type Severity Reaction Status Date / Time Sulfa (Sulfonamide Allergy Severe Hives Verified 07/31/22 15:20 Antibiotics) Cephalosporins Allergy Intermediate Hives Verified 07/31/22 15:20 hydrocodone Allergy Intermediate Itching Verified 07/31/22 15:20 methocarbamol Allergy Mild Rash Verified 07/31/22 15:20 clindamycin AdvReac Intermediate Heartburn Verified 07/31/22 15:20 Home Medications Medication Instructions Recorded Confirmed Type albuterol sulfate 2.5 mg/3 mL 2.5 mg inhalation Q4H PRN Wheezing 12/26/18 07/31/22 History (0.083 %) solution for nebulization albuterol sulfate 90 mcg/actuation 2 puff inhalation Q4H PRN Wheezing 12/26/18 07/31/22 History aerosol inhaler (ProAir HFA) azelastine 137 mcg (0.1 %) nasal 1 spray intranasal BID PRN Allergy 12/26/18 07/31/22 History spray aerosol Symptoms budesonide 32 mcg/actuation nasal 1 spray intranasal BID PRN Allergy 12/26/18 07/31/22 History spray Symptoms cholecalciferol (vitamin D3) 125 5,000 unit PO DAILY 12/26/18 07/31/22 History mcg (5,000 unit) tablet (Vitamin D3) cholecalciferol (vitamin D3) 25 1,000 unit PO DAILY 12/26/18 07/31/22 History mcg (1,000 unit) capsule (Vitamin D3) cranberry 500 mg capsule 500 mg PO DAILY 12/26/18 07/31/22 History cyanocobalamin (vitamin B-12) 1,000 mcg IM MONTHLY 12/26/18 07/31/22 History 1,000 mcg/mL injection solution hydroxyzine HCl 10 mg tablet 10 mg PO HS PRN Anxiety 12/26/18 07/31/22 History medroxyprogesterone 150 mg/mL 150 mg IM .EVERY 3 MONTHS 12/26/18 07/31/22 History intramuscular suspension ocrelizumab 30 mg/mL intravenous 300 mg IV .[id number] 12/26/18 07/31/22 History solution (Ocrevus) promethazine 25 mg tablet 25 mg PO Q6H PRN Nausea or Vomiting 12/26/18 07/31/22 History rizatriptan 10 mg tablet 10 mg PO DIRECTED PRN Headache 12/26/18 07/31/22 History topiramate 50 mg tablet 50 mg PO BID 12/26/18 07/31/22 History ferrous sulfate 325 mg (65 mg 325 mg PO Q OTHER DAY 07/31/22 07/31/22 History iron) tablet loratadine 10 mg tablet 10 mg PO QAM 07/31/22 07/31/22 History misoprostol 100 mcg tablet 100 mcg PO AMHS 07/31/22 07/31/22 History omeprazole 40 mg capsule,delayed 40 mg PO AMHS 07/31/22 07/31/22 History release pediatric multivitamin no.76 1 tab PO DAILY 07/31/22 07/31/22 History (Flintstones Complete chewable tablet) sucralfate 100 mg/mL oral 1 g PO AMHS 07/31/22 07/31/22 History suspension trazodone 100 mg tablet 100 mg PO HS 07/31/22 07/31/22 History venlafaxine 75 mg tablet 75 mg PO AMHS 07/31/22 07/31/22 History Past Med/Surg History Medical History (Updated 07/31/22 @ 14:59 by SAJAN Redmond) Acute blood loss anemia (ABLA) Asthma exacerbation Depression Elevated LFTs Elevated uric acid in blood Encounter for pre-operative examination History of deep vein thrombosis History of multiple sclerosis Hx of peptic ulcer Iron deficiency anemia Melena Migraine Multiple sclerosis Obesity Patellofemoral dysfunction of right knee Postgastric surgery syndrome UGIB (upper gastrointestinal bleed) Surgical History (Updated 07/31/22 @ 14:59 by SAJAN Redmond) Gastric bypass status for obesity History of gastric bypass History of insertion of tunneled central venous catheter (CVC) with port History of liver biopsy S/P cholecystectomy S/P surgery on nasal septum Family History Other Diabetes Hypertension Social History Smoking Status: Never smoker Hx Alcohol Use: No Hx Substance Use: No Preferred Language: Serbian Communication Ability: Effective Print Manager Required: No Beliefs That Will Affect Care: None marital status: Single Current Living Situation: Parent current occupational status: unemployed and disabled current occupation: disabled 2/2 to MS dx at 18 Feels Safe at Home: Yes Safety Concerns: Feels Safe At This Time Assistive Devices: None Review of Systems Review of Systems: Neuro: (-) Falls, trauma, slurred speech HEENT: (-) [place], dizziness, dysphagia, visual or auditory changes CV: (-) CP, palpitations, swelling Resp: (-) SOB GI: (-) appetite changes, N/V/D, bowel changes : (-) urinary changes Skin: (-) rashes Psych: (-) anxiety, depression Physical Exam Physical Exam: Neuro: AAOx4, PERRLA, no aphagia, memory changes, CNII-XII grossly intact HEENT: head normocephalic, moist mucus membranes CV: S1/S2, (-) M/G/R, (-) edema, cap refill < 3 seconds Resp: Lungs CTA in all antonio. On RA GI: Abdomen S/NT/ND, Ax4 bowel sounds, (-) CVA tenderness Musculoskeletal: 5/5 B/L UE strength, 5/5 B/L LE strength. No gait disturbance Skin: (-) rashes , (-) erythema. Psych: euthymic mood Results & Data Results & Data Vital Signs (Past 12 Hours) Vital Signs Temp Pulse Resp BP Pulse Ox O2 Del Method 07/31/22 14:43 67 16 131/98 99 07/31/22 12:55 36.7 C 80 18 129/92 100 Room Air Laboratory Results Short CBC 07/31/22 Range/Units 13:41 WBC 4.72 L (4.8-10.8) K/ul Hgb 12.5 (12.0-16.0) g/dl Hct 36.0 L (37.0-47.0) % Plt Count 215 (130-400) K/uL BMP 07/31/22 13:41 Sodium 133 L Potassium 3.6 Chloride 104 Carbon Dioxide 22 BUN 3 L Creatinine 0.50 L Glucose 98 Calcium 9.0 Liver Function 07/31/22 Range/Units 13:41 Total Bilirubin 2.3 H (0.2-1.0) mg/dl AST 22 (13-39) U/L ALT 19 (7-52) U/L Alkaline Phosphatase 157 H (34-104) U/L Albumin 3.5 (3.4-5.0) gm/dl Diagnostic Findings Chest X-Ray 07/31/22 12:57 XR chest 1V not portable HISTORY: 32 years-old Female weakness acute weakness COMPARISON: 11/05/2021 TECHNIQUE: PA view of the chest FINDINGS: Cardiomediastinal and hilar silhouettes are within normal limits. Left IJ [id number] catheter distal tip is noted in the expected location of the mid SVC. No pneumothorax, pleural effusion, airspace consolidation or pulmonary edema. Bones appear grossly intact. Cholecystectomy with surgical clips in the epigastric distribution. IMPRESSION: No acute process. ACT 112: Negative or not required by law. The above report was generated using voice recognition software. It may contain grammatical, syntax or spelling errors. Electronically signed by: Ky Mcdaniel M.D. 07/31/2022 1:35 PM Knee X-Ray 07/31/22 13:02 LEFT KNEE 3 VIEWS CLINICAL HISTORY: Fall with left knee pain. FINDINGS: AP, crosstable lateral, and sunrise views of the left knee are compared to study dated 06/10/2020. The skeletal structures are well mineralized. No fracture is seen. The joint spaces are maintained. Mild apparent hyperflexion on the lateral view may be related to positioning. There is no significant joint effusion. Prepatellar soft tissue swelling is observed. IMPRESSION: Mild soft tissue swelling with no fracture identified. Electronically signed by: Don Laird M.D. 07/31/2022 1:36 PM Code Status & VTE Plan Code Status Full code in the event of cardiac or respiratory arrest VTE Prophylaxis Plan VTE Prophylaxis will be ordered: Yes Supervising Physician Co-Signing Physician Notes Attending addendum: The patient was seen and examined in emergency room She complains to have minimally progressive bilateral leg weakness for some time Has had profound weakness yesterday at doctor's office and since then she has had 2 falls Complains of occasional numbness and tingling and heaviness involving the lower extremities Denies any other associated symptoms- On examination No apparent distress at rest Hemodynamically stable Chest-clear to auscultate bilateral Heart-S1, [id number] Abdomen-benign Extremities-negative for any edema 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 She has evidence of MS in her MRI before. She will have another MRI and will have neurology consult while in the hospital for her progressive symptoms of MS. History of gastric bypass surgery but not having any acute symptoms Will need MRI under sedation Agree with assessment and plan as outlined above by Lacy Box
[2022-07-31 15:35] LABS: Pregnancy Test, Serum Negative (Negative)
[2022-07-31] MEDS: VENLAFAXINE HCL 50 MG TAB PO SCH (20:22)
[2022-07-31] MEDS: PANTOprazole 40 MG TAB PO SCH (20:22)
[2022-07-31] MEDS: TOPIRAMATE 50 MG TAB PO SCH (20:22)
[2022-07-31] MEDS: miSOPROStoL 100 MCG TAB PO SCH (20:22)
[2022-07-31] MEDS: traZODone HCL 100 MG TAB PO SCH (20:23)
[2022-07-31] MEDS: SUCRALFATE 1 GM/10 ML UDC PO SCH (20:23)
--- NOTE | 2022-07-31 20:55 | Neurology Consultation ---
Date of Consultation July 31, 2022 Assessment & Plan (1) Multiple sclerosis: Impression: The patient has well-established diagnosis of multiple sclerosis, affecting brain, cervical and thoracic spine. Her last MRI studies from June 2022 showed only 1 new lesion of brain, with chronic demyelinating jose a ques involving brain and spinal cord. The patient also has decreased sensation in lower extremities, which can be due to MS but polyneuropathy is in differential. Based on recently worsening lower extremity weakness, sensory symptoms, and frequent falls, MS exacerbation should be investigated. Recommendations/plan: Brain, cervical and thoracic spine MRI studies, with and without contrast und er anesthesia. Because the patient has active peptic ulcer and recent history of hemorrhage, we will not start patient on pulse Solu-Medrol treatment empirically. Physical therapy and Occupational Therapy evaluations. The patient will continue using home medications as before. She will look followed by her MS specialist as scheduled before. She will informed them regarding recent hospitalization. We will follow the patient with you. (2) Bilateral leg weakness: Impression: The patient has some weakness in lower extremities. However, her ambulation is affected more significantly, which can be partially due to decreased sensation in lower extremities. Recommendations/plan: MRI studies as mentioned above. The patient will need outpatient evaluation for possible superimposed peripheral polyneuropathy. (3) History of gastric bypass: (4) Gastric bypass status for obesity: Plan As seen above. Thank you for the consultation. History of Present Illness Reason for Consultation: Leg weakness and falls Requesting Physician: Stephanie Box MD Attending Physician: Stephanie Box MD History of Present Illness The patient is an 42-year-old female, with established diagnosis of multiple sclerosis, who was sent to emergency department by primary care physicianhernandez of worsening leg weakness and recent falls. The patient reports that she was diagnosed with multiple sclerosis in 2008. She has been treated on different immunomodulatory treatment and she has been on Ocrevus for last few years, and her last infusion was in May 2022. The patient had brain, cervical and thoracic spine MRIs in June 2022, which showed a small, contrast-enhancing lesion in the brain, and several chronic demyelinating plaques in brain, cervical and thoracic spine. The patient has been followed by MS specialist in [place]. She believes that for last few weeks, she has been having heaviness in her legs, felt like Jell-O, which caused 2 falls yesterday, without significant injury. The patient has been having difficulty with ambulation. She denies bowel or bladder incontinence, difficulty with urination, cognitive impairment, stiffness, unusual pain, or sensory leveling. She has no spinal tenderness. She has lost significant weight since having gastric bypass surgery. Recently, she was diagnosed with peptic ulcer disease, which was hemorrhagic. Endoscopy is scheduled. The patient denies symptoms to suggest urinary tract infection or other infectious process. She has been on vitamin D supplements. She uses topiramate for headaches. She has been also on iron and vitamin B12 supplements and her levels have been monitored by primary care physician. She has been treated for depression on Effexor. She reports having decreased sensation in lower extremities for years which has been gradually worsening. At some point, polyneuropathy was mentioned, but the patient is not sure whether she was diagnosed with polyneuropathy. I have reviewed the patient's chart including imaging study reports. I have discussed the case with the patient and answered her questions in detail. Allergies Allergy/AdvReac Type Severity Reaction Status Date / Time Sulfa (Sulfonamide Allergy Severe Hives Verified 07/31/22 15:20 Antibiotics) Cephalosporins Allergy Intermediate Hives Verified 07/31/22 15:20 hydrocodone Allergy Intermediate Itching Verified 07/31/22 15:20 methocarbamol Allergy Mild Rash Verified 07/31/22 15:20 clindamycin AdvReac Intermediate Heartburn Verified 07/31/22 15:20 Home Medications Medication Instructions Recorded Confirmed Type albuterol sulfate 2.5 mg/3 mL 2.5 mg inhalation Q4H PRN Wheezing 12/26/18 07/31/22 History (0.083 %) solution for nebulization albuterol sulfate 90 mcg/actuation 2 puff inhalation Q4H PRN Wheezing 12/26/18 07/31/22 History aerosol inhaler (ProAir HFA) azelastine 137 mcg (0.1 %) nasal 1 spray intranasal BID PRN Allergy 12/26/18 07/31/22 History spray aerosol Symptoms budesonide 32 mcg/actuation nasal 1 spray intranasal BID PRN Allergy 12/26/18 07/31/22 History spray Symptoms cholecalciferol (vitamin D3) 125 5,000 unit PO DAILY 12/26/18 07/31/22 History mcg (5,000 unit) tablet (Vitamin D3) cholecalciferol (vitamin D3) 25 1,000 unit PO DAILY 12/26/18 07/31/22 History mcg (1,000 unit) capsule (Vitamin D3) cranberry 500 mg capsule 500 mg PO DAILY 12/26/18 07/31/22 History cyanocobalamin (vitamin B-12) 1,000 mcg IM MONTHLY 12/26/18 07/31/22 History 1,000 mcg/mL injection solution hydroxyzine HCl 10 mg tablet 10 mg PO HS PRN Anxiety 12/26/18 07/31/22 History medroxyprogesterone 150 mg/mL 150 mg IM .EVERY 3 MONTHS 12/26/18 07/31/22 History intramuscular suspension ocrelizumab 30 mg/mL intravenous 300 mg IV .[id number] 12/26/18 07/31/22 History solution (Ocrevus) promethazine 25 mg tablet 25 mg PO Q6H PRN Nausea or Vomiting 12/26/18 07/31/22 History rizatriptan 10 mg tablet 10 mg PO DIRECTED PRN Headache 12/26/18 07/31/22 History topiramate 50 mg tablet 50 mg PO BID 12/26/18 07/31/22 History ferrous sulfate 325 mg (65 mg 325 mg PO Q OTHER DAY 07/31/22 07/31/22 History iron) tablet loratadine 10 mg tablet 10 mg PO QAM 07/31/22 07/31/22 History misoprostol 100 mcg tablet 100 mcg PO AMHS 07/31/22 07/31/22 History omeprazole 40 mg capsule,delayed 40 mg PO AMHS 07/31/22 07/31/22 History release pediatric multivitamin no.76 1 tab PO DAILY 07/31/22 07/31/22 History (Flintstones Complete chewable tablet) sucralfate 100 mg/mL oral 1 g PO AMHS 07/31/22 07/31/22 History suspension trazodone 100 mg tablet 100 mg PO HS 07/31/22 07/31/22 History venlafaxine 75 mg tablet 75 mg PO AMHS 07/31/22 07/31/22 History Patient History Medical History Acute blood loss anemia (ABLA) Asthma exacerbation Depression Elevated LFTs Elevated uric acid in blood Encounter for pre-operative examination History of deep vein thrombosis History of multiple sclerosis Hx of peptic ulcer Iron deficiency anemia Melena Migraine Multiple sclerosis Obesity Patellofemoral dysfunction of right knee Postgastric surgery syndrome UGIB (upper gastrointestinal bleed) Surgical History Gastric bypass status for obesity History of gastric bypass History of insertion of tunneled central venous catheter (CVC) with port History of liver biopsy S/P cholecystectomy S/P surgery on nasal septum Family History Other Diabetes Hypertension Social History Smoking Status: Never smoker Hx Alcohol Use: No Hx Substance Use: No Preferred Language: Mongolian Communication Ability: Effective 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 HENT: Normal exam with inspection. CV: Hearth rhythm is regular. Neck: Supple, no carotid bruits. Lungs: Non-labored and comfortable breathing. Abdomen: Soft, non-tender, non-distended. Skin: No rash or ecchymosis. Extremities: No edema or cyanosis NEUROLOGICAL EXAMINATION: Mental Status: Alert and oriented to place, person and time. Cranial Nerves: II-XII are intact. No nystagmus. Funduscopy: Normal looking optic discs. Motor: 5/5 in upper extremities without asymmetry. Bilateral ankle dorsiflexors are 4+ out of 5. Right lower extremity strength is 4+ to 5- out of 5, and left lower extremity strength is 5 out of 5. Tone: Normal without spasticity or rigidity. Sensory: Decreased sensation in lower extremities up to mid thighs, to all sensory modalities. Coordination: No dysmetria with FTN testing. Speech: Fluent. Comprehension is intact. Gait: Not assessed. Musculoskeletal: Normal muscle bulk, no atrophy. DTRs: 2+ in upper extremities, trace in knees, and absent in ankles. Plantar reflexes are bilaterally downgoing. Results & Data Vital Signs (Past 12 Hours) Vital Signs Temp Pulse Pulse Resp BP BP Pulse Ox 07/31/22 19:40 36.8 C 93 H 16 128/86 100 07/31/22 16:35 69 07/31/22 16:23 07/31/22 16:10 36.6 C 70 16 120/83 100 07/31/22 14:43 67 16 131/98 99 07/31/22 12:55 36.7 C 80 18 129/92 100 O2 Del Method 07/31/22 19:40 Room Air 07/31/22 16:35 07/31/22 16:23 Room Air 07/31/22 16:10 Room Air 07/31/22 14:43 07/31/22 12:55 Room Air Laboratory Results Laboratory Results - last 24 hr 07/31/22 07/31/22 07/31/22 13:41 13:41 14:04 WBC 4.72 L RBC 3.65 L Hgb 12.5 Hct 36.0 L MCV 98.6 MCH 34.2 H MCHC 34.7 RDW Std Deviation 46.3 RDW Coeff of [place] 12.9 Plt Count 215 MPV 9.7 Immature Gran % (Auto) 0.2 Neut % (Auto) 66.4 Lymph % (Auto) 18.6 [place] % (Auto) 12.9 Eos % (Auto) 1.3 Baso % (Auto) 0.6 Neut # (Auto) 3.13 Lymph # (Auto) 0.[address] [place] # (Auto) 0.61 H Eos # (Auto) 0.06 Baso # (Auto) 0.03 Immature Gran # (Auto) 0.01 Sodium 133 L Potassium 3.6 Chloride 104 Carbon Dioxide 22 Anion Gap 7 BUN 3 L Creatinine 0.50 L Est Cr Clr Drug Dosing 180.7 Est GFR ( Amer) 147.4 Est GFR (Non-Af Amer) 127.2 BUN/Creatinine Ratio 6.0 L Glucose 98 Calcium 9.0 Total Bilirubin 2.3 H AST 22 ALT 19 Alkaline Phosphatase 157 H Total Protein 6.6 Albumin 3.5 Globulin 3.1 Albumin/Globulin Ratio 1.1 HCG, Qual Negative Urine Color Urine Appearance Urine pH Ur Specific [place] Urine Protein Urine Glucose (UA) Urine Ketones Urine Blood Urine Nitrite Urine Bilirubin Urine Urobilinogen Ur Leukocyte Esterase SARS-CoV-2, RNA, NAAT 07/31/22 07/31/22 14:25 Unknown WBC RBC Hgb Hct MCV MCH MCHC RDW Std Deviation RDW Coeff of [place] Plt Count MPV Immature Gran % (Auto) Neut % (Auto) Lymph % (Auto) [place] % (Auto) Eos % (Auto) Baso % (Auto) Neut # (Auto) Lymph # (Auto) [place] # (Auto) Eos # (Auto) Baso # (Auto) Immature Gran # (Auto) Sodium Potassium Chloride Carbon Dioxide Anion Gap BUN Creatinine Est Cr Clr Drug Dosing Est GFR ( Amer) Est GFR (Non-Af Amer) BUN/Creatinine Ratio Glucose Calcium Total Bilirubin AST ALT Alkaline Phosphatase Total Protein Albumin Globulin Albumin/Globulin Ratio HCG, Qual Urine Color Pending Urine Appearance Pending Urine pH Pending Ur Specific [place] Pending Urine Protein Pending Urine Glucose (UA) Pending Urine Ketones Pending Urine Blood Pending Urine Nitrite Pending Urine Bilirubin Pending Urine Urobilinogen Pending Ur Leukocyte Esterase Pending SARS-CoV-2, RNA, NAAT NEGATIVE Diagnostic Findings Chest X-Ray 07/31/22 12:57 XR chest 1V not portable HISTORY: 32 years-old Female weakness acute weakness COMPARISON: 11/05/2021 TECHNIQUE: PA view of the chest FINDINGS: Cardiomediastinal and hilar silhouettes are within normal limits. Left IJ [id number] catheter distal tip is noted in the expected location of the mid SVC. No pneumothorax, pleural effusion, airspace consolidation or pulmonary edema. Bones appear grossly intact. Cholecystectomy with surgical clips in the epigastric distribution. IMPRESSION: No acute process. ACT 112: Negative or not required by law. The above report was generated using voice recognition software. It may contain grammatical, syntax or spelling errors. Electronically signed by: Ky Mcdaniel M.D. 07/31/2022 1:35 PM Knee X-Ray 07/31/22 13:02 LEFT KNEE 3 VIEWS CLINICAL HISTORY: Fall with left knee pain. FINDINGS: AP, crosstable lateral, and sunrise views of the left knee are compared to study dated 06/10/2020. The skeletal structures are well mineralized. No fracture is seen. The joint spaces are maintained. Mild apparent hyperflexion on the lateral view may be related to positioning. There is no significant joint effusion. Prepatellar soft tissue swelling is observed. IMPRESSION: Mild soft tissue swelling with no fracture identified. Electronically signed by: Don Laird M.D. 07/31/2022 1:36 PM
[2022-07-31 21:15] LABS: Appearance Urine Clear (Clear); Bacteria Urine Automated Negative (Negative); Bilirubin Urine Negative (Negative); Blood Urine Negative (Negative); Cast Urine Automated 0 /lpf (0-5); Color Urine Orange; Glucose Urine UA Negative (Negative); Ketones Urine Negative (Negative); Leukocyte Esterase Urine Trace (Negative); Nitrite Urine Negative (Negative); Protein Urine Negative (Negative); RBC Urine Automated 0-4 /hpf (0-4); Specific Gravity Urine 1.006 (1.000-1.030); Urobilinogen Urine Negative (Negative); pH Urine 6.5 (4.5-7.5)
[2022-08-01] MEDS ORDERED: HEPARIN 100 UNIT/ML 5ML FLUSH FLUSH PRN (00:01)
[2022-08-01 07:28] LABS: Hematocrit (blood only) 32.1 % (37.0-47.0); Mean Corpuscular Hemoglobin 34.3 pg (25.0-34.0); Mean Corpuscular Hgb Conc 34.3 g/dL (32.0-36.0); Mean Platelet Volume 10.3 fL (9.4-12.4); Platelet Count 185 K/uL (130-400); RDW Coefficient of Variation 12.6 % (11.5-14.5); RDW Standard Deviation 46.6 fL (36.4-46.3); Red Blood Count 3.21 M/uL (4.20-5.40); White Blood Count 3.84 K/ul (4.8-10.8)
[2022-08-01 08:08] LABS: BUN Creatinine Ratio 9.4 (10-20); Calcium 8.5 mg/dl (8.6-10.3); Creatinine Clr Calc Pharmacy 172.5 ml/min; Est GFR (African American) 144.6 ml/min; Est GFR (Non-African American) 124.8 ml/min; Magnesium 1.8 mg/dl (1.7-2.4); Potassium 3.4 mmol/L (3.5-5.1)
[2022-08-01] MEDS: PANTOprazole 40 MG TAB PO SCH ×2 (08:19→20:06)
[2022-08-01] MEDS: VENLAFAXINE HCL 50 MG TAB PO SCH (08:19)
[2022-08-01] MEDS: miSOPROStoL 100 MCG TAB PO SCH ×2 (08:20→20:01)
[2022-08-01] MEDS: MULTIVITAMIN CHEWABLE TAB PO SCH (08:20)
[2022-08-01] MEDS: SUCRALFATE 1 GM/10 ML UDC PO SCH ×2 (08:20→20:00)
[2022-08-01] MEDS: CHOLECALCIFEROL 5,000 UNITS 125 MCG TAB PO SCH (08:20)
[2022-08-01] MEDS: TOPIRAMATE 50 MG TAB PO SCH ×2 (08:21→20:02)
[2022-08-01] MEDS: LORATADINE 10 MG TAB PO SCH (08:21)
[2022-08-01] MEDS ORDERED: CYANOCOBALAMIN 1000 MCG/ML VIAL IM SCH (09:00)
[2022-08-01] MEDS ORDERED: CHOLECALCIFEROL 1,000 UNITS 25 MCG TAB PO SCH (09:00)
[2022-08-01] MEDS ORDERED: FERROUS SULFATE 325 MG TAB PO SCH (09:00)
--- NOTE | 2022-08-01 16:26 | Hospitalist Progress Note ---
Date of Service August 01, 2022 Assessment & Plan (1) Multiple sclerosis: (2) Bilateral leg weakness: (3) History of deep vein thrombosis: (4) Iron deficiency anemia: (5) History of gastric bypass: (6) Depression: Plan 32-year-old with multiple sclerosis presenting with bilateral leg weakness. Additional past medical history includes history of DVT, anemia, history of gastric bypass, migraines and depression. Brain MRI 06/27 with new enhancing demyelinating lesions. Repeat imaging to investigate further progression of disease. Neuro consult placed. Multiple sclerosis: Bilateral leg weakness: Follows with [facility] neurology Chronic pain Bilateral lower extremity weakness Last infusion May 2022; Ocrevus infusions Brain MRI 06/27: New enhancing presumably demyelinating lesions in the cortical/juxtacortical left temporal occipital lobe. Cervical and Thoracic MRI: Numerous cervical and thoracic cord demyelinating lesion without evidence of new lesions Outpatient PCP recommended repeat brain, cervical and thoracic MRI; historically done with sedation; discussed with MRI who will schedule for tomorrow 08/01/22 Patient historically does have sedation with all MRI's due to lower back pain and her inability to lie flat related to her Multiple Sclerosis. NPO after MN. Still getting occasional numbness and heaviness involving the lower extremities and no other symptoms She will have MRI of the head, cervical and thoracic spine under sedation tomorrow at 11:30 AM-MRI department is aware History of DVT: Upper extremity following vascular surgery; not on any chronic anticoagulation No other symptoms associated with it Anemia: History of gastric bypass: Bleeding gastric ulcer 12/25; was due to undergo endoscopy today for follow-up Hemoglobin 12.5 Takes Flinstones vitamin; continue No need for GI consult at this time; reassess after Neuro concerns addressed; ideally have endoscopy as OPT as previously planned No overt signs of anemia No GI symptoms and no history of hematemesis and melena-no need to involve GI to do the procedure Depression: Takes Effexor; continue H/O Migranes: Takes Rizatriptan Disposition: PCP:Dr. Figueroa Code Status: Full Code VTE Prophylaxis: Teds and SCDs for now Admission and Anticipated Discharge Date Admission Date: July 31, 2022 Subjective 08/01/2022 The patient was seen and examined in medical telemetry unit She still has occasional numbness and tingling in the lower extremities and occasional heaviness involving the lower extremities Does not have any other new symptoms She will have MRI tomorrow at 11:30 in the morning with sedation Review of Systems Review of Systems: All systems reviewed and are unremarkable except as noted below Physical Exam Physical Exam: Lying in bed comfortably Constitutional: well developed, well nourished and + obese Eyes: PERRL, conjunctivae normal, anicteric sclerae ENMT: external ear and nose normal, oropharynx normal Neck: trachea midline, no thyromegaly Respiratory: no respiratory distress Auscultation: lungs clear to auscultation bilaterally Cardiovascular: Rate/Rhythm: regular rate and regular rhythm; not tachycardic Heart Sounds: normal S1 and normal S2; no murmur Extremities: + edema (Trace edema bilaterally) Gastrointestinal (Abdomen): Inspection/Auscultation: normal bowel sounds; abdomen not distended Percussion/Palpation: abdomen soft; abdomen nontender Musculoskeletal: No acute arthritis involving any joint Neurologic: normal touch/pain/proprioception and moves all extremities; no focal motor deficits Alert, awake and oriented x3 Psychiatric: A+Ox3, euthymic affect Lymphatic: no cervical or axillary lymphadenopathy Results & Data Results & Data Vital Signs (Past 12 Hours) Vital Signs Temp Pulse Pulse Resp BP Pulse Ox O2 Del Method 08/01/22 15:39 36.3 C L 93 H 18 120/85 100 Room Air 08/01/22 11:39 36.9 C 79 18 132/89 100 Room Air 08/01/22 07:24 36.7 C 80 18 125/94 97 Room Air 08/01/22 07:00 72 Laboratory Results Short CBC 08/01/22 Range/Units 06:22 WBC 3.84 L (4.8-10.8) K/ul Hgb 11.0 L (12.0-16.0) g/dl Hct 32.1 L (37.0-47.0) % Plt Count 185 (130-400) K/uL BMP 08/01/22 06:22 Sodium 135 L Potassium 3.4 L Chloride 106 Carbon Dioxide 22 BUN 5 L Creatinine 0.53 L Glucose 89 Calcium 8.5 L Urine 07/31/22 Range/Units Unknown Urine Color [place] Urine Appearance Clear (Clear) Urine pH 6.5 (4.5-7.5) Ur Specific [place] 1.006 (1.000-1.030) Urine Protein Negative (Negative) Urine Glucose (UA) Negative (Negative) Medications Administered Current Inpatient Medications Acetaminophen (Acetaminophen 325 Mg Tab) 650 mg PO Q4H PRN PRN Reason: Pain or Fever Stop: 08/30/22 14:49 Al Hydrox/Mg Hydrox/Simethicone (Aluminum/Magnesium Susp 30 Ml Udc) 15 ml PO Q4H PRN PRN Reason: Dyspepsia Stop: 08/30/22 14:49 Cyanocobalamin (Cyanocobalamin 1000 Mcg/Ml Vial) 1,000 mcg IM Q28D [facility]; Protocol Stop: 08/31/22 08:59 Last Admin: 08/01/22 08:21 Dose: 1,000 mcg Ferrous Sulfate (Ferrous Sulfate 325 Mg Tab) 325 mg PO Q48H [facility] Stop: 08/31/22 08:59 Last Admin: 08/01/22 08:20 Dose: 325 mg Heparin Sodium (Porcine) (Heparin 100 Unit/Ml 5ml Flush) 5 ml FLUSH PRN PRN PRN Reason: Flush Stop: 08/31/22 00:00 Loratadine (Loratadine 10 Mg Tab) 10 mg PO [facility] Stop: 08/31/22 08:59 Last Admin: 08/01/22 08:21 Dose: 10 mg Magnesium Hydroxide (Magnesium Hydroxide Susp 30 Ml Udc) 30 ml PO Q12H PRN PRN Reason: Constipation Stop: 08/30/22 14:49 Misoprostol (Misoprostol 100 Mcg Tab) 100 mcg PO [facility] Stop: 08/30/22 20:59 Last Admin: 08/01/22 08:20 Dose: 100 mcg Multivitamins/Folic Acid/Vitamin C (Multivitamin Chewable Tab) 1 tab PO DAILY [facility] Stop: 08/31/22 08:59 Last Admin: 08/01/22 08:20 Dose: 1 tab Ondansetron HCl (Ondansetron Inj 2 Mg/Ml 2 Ml Vial) 4 mg IV Q6H PRN PRN Reason: Nausea Stop: 08/30/22 14:49 Last Admin: 07/31/22 18:16 Dose: 4 mg Pantoprazole Sodium (Pantoprazole 40 Mg Tab) 40 mg PO [facility]; Protocol Stop: 08/30/22 20:59 Last Admin: 08/01/22 08:19 Dose: 40 mg Polyethylene Glycol (Polyethylene (Miralax) 17 Gm Pack) 17 gm PO DAILY PRN PRN Reason: Constipation Stop: 08/30/22 14:49 Sucralfate (Sucralfate 1 Gm/10 Ml Udc) 1 gm PO [facility] Stop: 08/30/22 20:59 Last Admin: 08/01/22 08:20 Dose: 1 gm Topiramate (Topiramate 50 Mg Tab) 50 mg PO BID [facility] Stop: 08/30/22 20:59 Last Admin: 08/01/22 08:21 Dose: 50 mg Trazodone HCl (Trazodone Hcl 100 Mg Tab) 100 mg PO HS [facility] Stop: 08/30/22 20:59 Last Admin: 07/31/22 20:23 Dose: 100 mg Venlafaxine HCl (Venlafaxine Hcl 37.5 Mg Tab) 75 mg PO AMHS [facility] Stop: 08/31/22 20:59 Vitamin D (Cholecalciferol 5,000 Units 125 Mcg Tab) 5,000 units PO DAILY [facility] Stop: 08/31/22 08:59 Last Admin: 08/01/22 08:20 Dose: 5,000 units
[2022-08-01] MEDS: VENLAFAXINE HCL 37.5 MG TAB PO SCH (20:00)
[2022-08-01] MEDS: traZODone HCL 100 MG TAB PO SCH (20:01)
[2022-08-02] MEDS: CHOLECALCIFEROL 5,000 UNITS 125 MCG TAB PO SCH (08:18)
[2022-08-02] MEDS: SUCRALFATE 1 GM/10 ML UDC PO SCH (08:18)
[2022-08-02] MEDS: miSOPROStoL 100 MCG TAB PO SCH (08:18)
[2022-08-02] MEDS: LORATADINE 10 MG TAB PO SCH (08:18)
[2022-08-02] MEDS: MULTIVITAMIN CHEWABLE TAB PO SCH (08:18)
[2022-08-02] MEDS: VENLAFAXINE HCL 37.5 MG TAB PO SCH (08:18)
[2022-08-02] MEDS: TOPIRAMATE 50 MG TAB PO SCH (08:18)
[2022-08-02] MEDS: PANTOprazole 40 MG TAB PO SCH (09:10)
--- NOTE | 2022-08-02 09:16 | Anesthesiology Consultation ---
Date of Service August 02, 2022 Assessment & Plan (1) Encounter for pre-operative examination: Chart Review Chart Review: Acceptable Risk for Surgery History Surgery Operation Date: 08/02/22 11:30 Proposed Procedures p MRI with Anesthesia Sedation Brain, Cervical, Thoracic - SAJAN [place] Height/Weight Height: 5 ft 8 in Weight: 85.1 kg Allergies Allergy/AdvReac Type Severity Reaction Status Date / Time Sulfa (Sulfonamide Allergy Severe Hives Verified 07/31/22 15:20 Antibiotics) Cephalosporins Allergy Intermediate Hives Verified 07/31/22 15:20 hydrocodone Allergy Intermediate Itching Verified 07/31/22 15:20 methocarbamol Allergy Mild Rash Verified 07/31/22 15:20 clindamycin AdvReac Intermediate Heartburn Verified 07/31/22 15:20 Medications Home Medications Medication Instructions Recorded Confirmed Last Taken albuterol sulfate 2.5 mg/3 mL 2.5 mg inhalation Q4H PRN Wheezing 12/26/18 07/31/22 Unknown (0.083 %) solution for nebulization albuterol sulfate 90 mcg/actuation 2 puff inhalation Q4H PRN Wheezing 12/26/18 07/31/22 Unknown aerosol inhaler (ProAir HFA) azelastine 137 mcg (0.1 %) nasal 1 spray intranasal BID PRN Allergy 12/26/18 07/31/22 Unknown spray aerosol Symptoms budesonide 32 mcg/actuation nasal 1 spray intranasal BID PRN Allergy 12/26/18 07/31/22 Unknown spray Symptoms cholecalciferol (vitamin D3) 125 5,000 unit PO DAILY 12/26/18 07/31/22 08/18/20 mcg (5,000 unit) tablet (Vitamin D3) cholecalciferol (vitamin D3) 25 1,000 unit PO DAILY 12/26/18 07/31/22 08/18/20 mcg (1,000 unit) capsule (Vitamin D3) cranberry 500 mg capsule 500 mg PO DAILY 12/26/18 07/31/22 08/18/20 cyanocobalamin (vitamin B-12) 1,000 mcg IM MONTHLY 12/26/18 07/31/22 Unknown 1,000 mcg/mL injection solution hydroxyzine HCl 10 mg tablet 10 mg PO HS PRN Anxiety 12/26/18 07/31/22 Unknown medroxyprogesterone 150 mg/mL 150 mg IM .EVERY 3 MONTHS 12/26/18 07/31/22 Unknown intramuscular suspension ocrelizumab 30 mg/mL intravenous 300 mg IV .[id number] 12/26/18 07/31/22 Unknown solution (Ocrevus) promethazine 25 mg tablet 25 mg PO Q6H PRN Nausea or Vomiting 12/26/18 07/31/22 Unknown rizatriptan 10 mg tablet 10 mg PO DIRECTED PRN Headache 12/26/18 07/31/22 Unk nown topiramate 50 mg tablet 50 mg PO BID 12/26/18 07/31/22 08/18/20 08:00 ferrous sulfate 325 mg (65 mg 325 mg PO Q OTHER DAY 07/31/22 07/31/22 Unknown iron) tablet loratadine 10 mg tablet 10 mg PO QAM 07/31/22 07/31/22 Unknown misoprostol 100 mcg tablet 100 mcg PO [facility] 07/31/22 07/31/22 Unknown omeprazole 40 mg capsule,delayed 40 mg PO [facility] 07/31/22 07/31/22 Unknown release pediatric multivitamin no.76 1 tab PO DAILY 07/31/22 07/31/22 Unknown (Flintstones Complete chewable tablet) sucralfate 100 mg/mL oral 1 g PO [facility] 07/31/22 07/31/22 Unknown suspension trazodone 100 mg tablet 100 mg PO HS 07/31/22 07/31/22 Unknown venlafaxine 75 mg tablet 75 mg PO [facility] 07/31/22 07/31/22 Unknown Active Medications Generic Name Dose Route Start Last Admin Trade Name Graciela PRN Reason Stop Dose Admin Cyanocobalamin 1,000 mcg 08/01/22 09:00 08/01/22 08:21 Cyanocobalamin 1000 Mcg/Ml Vial IM 08/31/22 08:59 1,000 mcg Q28D FRANCISCA Administration Protocol Ferrous Sulfate 325 mg 08/01/22 09:00 08/01/22 08:20 Ferrous Sulfate 325 Mg Tab PO 08/31/22 08:59 325 mg Q48H FRANCISCA Administration Loratadine 10 mg 08/01/22 09:00 08/02/22 08:18 Loratadine 10 Mg Tab PO 08/31/22 08:59 10 mg QAM FRANCISCA Administration Misoprostol 100 mcg 07/31/22 21:00 08/02/22 08:18 Misoprostol 100 Mcg Tab PO 08/30/22 20:59 100 mcg AM[facility] FRANCISCA Administration Multivitamins/Folic Acid/Vitamin C 1 tab 08/01/22 09:00 08/02/22 08:18 Multivitamin Chewable Tab PO 08/31/22 08:59 1 tab DAILY FRANCISCA Administration Ondansetron HCl 4 mg 07/31/22 14:50 07/31/22 18:16 Ondansetron Inj 2 Mg/Ml 2 Ml Vial IV 08/30/22 14:49 4 mg Q6H PRN Administration Nausea Pantoprazole Sodium 40 mg 07/31/22 21:00 08/02/22 09:10 Pantoprazole 40 Mg Tab PO 08/30/22 20:59 40 mg AMHS FRANCISCA Administration Protocol Sucralfate 1 gm 07/31/22 21:00 08/02/22 08:18 Sucralfate 1 Gm/10 Ml Udc PO 08/30/22 20:59 1 gm AMHS FRANCISCA Administration Topiramate 50 mg 07/31/22 21:00 08/02/22 08:18 Topiramate 50 Mg Tab PO 08/30/22 20:59 50 mg BID FRANCISCA Administration Trazodone HCl 100 mg 07/31/22 21:00 08/01/22 20:01 Trazodone Hcl 100 Mg Tab PO 08/30/22 20:59 100 mg HS FRANCISCA Administration Venlafaxine HCl 75 mg 08/01/22 21:00 08/02/22 08:18 Venlafaxine Hcl 37.5 Mg Tab PO 08/31/22 20:59 75 mg AMHS FRANCISCA Administration Vitamin D 5,000 units 08/01/22 09:00 08/02/22 08:18 Cholecalciferol 5,000 Units 125 Mcg Tab PO 08/31/22 08:59 5,000 units DAILY FRANCISCA Administration Past Medical History Medical History (Updated 08/02/22 @ 09:16 by Pierre Poole MD) Acute blood loss anemia (ABLA) Asthma exacerbation Depression Elevated LFTs Elevated uric acid in blood History of deep vein thrombosis History of multiple sclerosis Hx of peptic ulcer Iron deficiency anemia Melena Migraine Multiple sclerosis Obesity Patellofemoral dysfunction of right knee Postgastric surgery syndrome UGIB (upper gastrointestinal bleed) Past Family History Family History Other Diabetes Hypertension Past Surgical History Surgical History Gastric bypass status for obesity History of gastric bypass History of insertion of tunneled central venous catheter (CVC) with port History of liver biopsy S/P cholecystectomy S/P surgery on nasal septum Social History Smoking Status: Never smoker Hx Alcohol Use: No Alcohol type: beer alcohol intake frequency: a few times a week Hx Substance Use: No Physical Exam Vital Signs Last Vital Signs Temp 36.4 C L 08/02/22 07:52 Pulse 76 08/02/22 07:56 Resp 16 08/02/22 07:52 BP 127/93 08/02/22 07:52 Pulse Ox 100 08/02/22 07:52 O2 Del Method Room Air 08/02/22 07:52 Testing Laboratory Results 08/01/22 06:22 08/01/22 06:22 Urine Color [place] 07/31/22 Unknown Urine Appearance Clear (Clear) 07/31/22 Unknown Urine pH 6.5 (4.5-7.5) 07/31/22 Unknown Ur Specific [place] 1.006 (1.000-1.030) 07/31/22 Unknown Urine Protein Negative (Negative) 07/31/22 Unknown Urine Glucose (UA) Negative (Negative) 07/31/22 Unknown Urine Ketones Negative (Negative) 07/31/22 Unknown Urine Nitrite Negative (Negative) 07/31/22 Unknown Ur Leukocyte Esterase Trace (Negative) H 07/31/22 Unknown Urine WBC (Auto) 1-5 /hpf (0-5) 07/31/22 Unknown Urine RBC (Auto) 0-4 /hpf (0-4) 07/31/22 Unknown U Hyaline Cast (Auto) 0 /lpf (0-5) 07/31/22 Unknown U Epithel Cells (Auto) 10-20 /lpf (0-5) H 07/31/22 Unknown Urine Bacteria (Auto) Negative (Negative) 07/31/22 Unknown
[2022-08-02] MEDS ORDERED: MIDAZOLAM HCL 1 MG/ML 2ML VIAL ONE ×2 (10:45→10:46)
[2022-08-02] MEDS ORDERED: fentaNYL citrate PF 100 MCG/2 ML VIAL ONE (10:46)
[2022-08-02] MEDS ORDERED: LIDOCAINE 2% MPF LOCAL 5 ML VIAL ONE (10:47)
[2022-08-02] MEDS ORDERED: PROPOFOL IV EMULSION 10 MG/ML 20 ML VIAL IV ONE (10:47)
[2022-08-02] MEDS ORDERED: KETAMINE 50 MG/5 ML SYRINGE ONE (10:50)
[2022-08-02] MEDS ORDERED: fentaNYL citrate PF 100 MCG/2 ML VIAL IV PRN (11:07)
[2022-08-02] MEDS ORDERED: ONDANSETRON INJ 2 MG/ML 2 ML VIAL IV PRN (11:07)
[2022-08-02] MEDS ORDERED: ATROPINE SULFATE 0.1 MG/ML 10ML SYR IV PRN (11:07)
[2022-08-02] MEDS ORDERED: GADOBUTROL 65ML VIAL IV ONE (13:40)
--- NOTE | 2022-08-02 14:26 | Magnetic Resonance Report ---
CERVICAL SPINE MRI WITH AND WITHOUT CONTRAST HISTORY: Multiple sclerosis. Weakness. TECHNIQUE: Multiplanar multisequence MRI of the cervical spine was performed both before and after th e use of intravenous contrast. COMPARISON STUDY: Cervical spine MRI 12/26/2018. FINDINGS: There is mild motion artifact. There is again noted extensive T2 signal abnormality seen th roughout the majority of the cervical and upper thoracic spinal cord. This is similar to the prior st udy. This is consistent with the patient's known history of multiple sclerosis. Measurements are diff icult to obtain due to the near confluent appearance of the suspected white matter plaques of the cer vical spinal cord. No abnormal enhancement to suggest active demyelination. No fracture or subluxatio n within the cervical spine. Straightening of the cervical spine.. Prevertebral soft tissues and the C1-C2 interval are intact. Disc spaces are preserved. C2-C3: No significant central canal or neural foraminal narrowing. C3-C4: No significant central canal or neural foraminal narrowing. C4-C5: No significant central canal or neural foraminal narrowing. C5-C6: No significant central canal or neural foraminal narrowing. C6-C7: No significant central canal or neural foraminal narrowing. C7-T1: No significant central canal or neural foraminal narrowing. IMPRESSION: No significant change in the extensive T2 hyperintensity within the cervical spinal cord and visualiz ed portions of the upper thoracic spinal cord consistent with white matter plaques in the setting of multiple sclerosis. No abnormal enhancement to suggest active demyelination. ACT 112: Negative or not required by law. Electronically signed by: Yusuf Mejia M.D. 08/02/2022 2:24 PM
--- NOTE | 2022-08-02 14:29 | Hospitalist Progress Note ---
Date of Service August 02, 2022 Assessment & Plan (1) Multiple sclerosis: (2) Bilateral leg weakness: (3) History of deep vein thrombosis: (4) Iron deficiency anemia: (5) History of gastric bypass: (6) Depression: Plan 32-year-old with multiple sclerosis presenting with bilateral leg weakness. Additional past medical history includes history of DVT, anemia, history of gastric bypass, migraines and depression. Brain MRI 06/27 with new enhancing demyelinating lesions. Repeat imaging to investigate further progression of disease. Neuro consult placed. Multiple sclerosis: Bilateral leg weakness: Follows with [facility] neurology Chronic pain Bilateral lower extremity weakness Last infusion May 2022; Ocrevus infusions Brain MRI 06/27: New enhancing presumably demyelinating lesions in the cortical/juxtacortical left temporal occipital lobe. Cervical and Thoracic MRI: Numerous cervical and thoracic cord demyelinating lesion without evidence of new lesions Outpatient PCP recommended repeat brain, cervical and thoracic MRI; historically done with sedation; discussed with MRI who will schedule for tomorrow 08/01/22 Patient historically does have sedation with all MRI's due to lower back pain and her inability to lie flat related to her Multiple Sclerosis. NPO after MN. Still getting occasional numbness and heaviness involving the lower extremities and no other symptoms She will have MRI of the head, cervical and thoracic spine under sedation tomorrow at 11:30 AM-MRI department is aware MRI of the head, cervical and thoracic spine did not show any active lesions Discussed with the neurologist who will be seeing her this afternoon and following that she will be discharged home History of DVT: Upper extremity following vascular surgery; not on any chronic anticoagulation No other symptoms associated with it Anemia: History of gastric bypass: Bleeding gastric ulcer 12/25; was due to undergo endoscopy today for follow-up Hemoglobin 12.5 Takes Flinstones vitamin; continue No need for GI consult at this time; reassess after Neuro concerns addressed; ideally have endoscopy as OPT as previously planned No overt signs of anemia No GI symptoms and no history of hematemesis and melena-no need to involve GI to do the procedure Depression: Takes Effexor; continue H/O Migranes: Takes Rizatriptan Disposition: PCP:Dr. Figueroa Code Status: Full Code VTE Prophylaxis: Teds and SCDs for now A total of 50 minutes spent with the patient discussing the results of the MRI, examining her, reviewing her medications and discussion with the specialist. Admission and Anticipated Discharge Date Admission Date: July 31, 2022 Subjective 08/01/2022 The patient was seen and examined in medical telemetry unit She still has occasional numbness and tingling in the lower extremities and occasional heaviness involving the lower extremities Does not have any other new symptoms She will have MRI tomorrow at 11:30 in the morning with sedation 08/02/2022 The patient was seen and examined in medical telemetry unit Does not have any new symptoms She has had MRIs done today Has been ambulating in the room without any difficulties Review of Systems Review of Systems: All systems reviewed and are unremarkable except as noted below Physical Exam Physical Exam: Lying in bed comfortably Constitutional: well developed, well nourished and + obese Eyes: PERRL, conjunctivae normal, anicteric sclerae ENMT: external ear and nose normal, oropharynx normal Neck: trachea midline, no thyromegaly Respiratory: no respiratory distress Auscultation: lungs clear to auscultation bilaterally Cardiovascular: Rate/Rhythm: regular rate and regular rhythm; not tachycardic Heart Sounds: normal S1 and normal S2; no murmur Extremities: + edema (Trace edema bilaterally) Gastrointestinal (Abdomen): Inspection/Auscultation: normal bowel sounds; abdomen not distended Percussion/Palpation: abdomen soft; abdomen nontender Musculoskeletal: No acute arthritis involving any joint Neurologic: normal touch/pain/proprioception and moves all extremities; no focal motor deficits Psychiatric: A+Ox3, euthymic affect Lymphatic: no cervical or axillary lymphadenopathy Results & Data Results & Data Vital Signs (Past 12 Hours) Vital Signs Temp Pulse Pulse Resp BP Pulse Ox O2 Del Method 08/02/22 14:25 86 18 115/92 99 Room Air 08/02/22 14:15 36.2 C L 80 20 122/89 100 Room Air 08/02/22 11:01 36.5 C 80 20 134/92 100 Room Air 08/02/22 07:56 76 08/02/22 07:52 36.4 C L 80 16 127/93 100 Room Air 08/02/22 04:08 36.7 C 86 20 121/86 97 Room Air Medications Administered Current Inpatient Medications Acetaminophen (Acetaminophen 325 Mg Tab) 650 mg PO Q4H PRN PRN Reason: Pain or Fever Stop: 08/30/22 14:49 Al Hydrox/Mg Hydrox/Simethicone (Aluminum/Magnesium Susp 30 Ml Udc) 15 ml PO Q4H PRN PRN Reason: Dyspepsia Stop: 08/30/22 14:49 Atropine Sulfate (Atropine Sulfate 0.1 Mg/Ml 10ml Syr) 0.5 mg IV Q1M PRN PRN Reason: PACU Use-HR<40 &/or Bradycardi Stop: 08/02/22 19:07 Cyanocobalamin (Cyanocobalamin 1000 Mcg/Ml Vial) 1,000 mcg IM Q28D [facility]; Protocol Stop: 08/31/22 08:59 Last Admin: 08/01/22 08:21 Dose: 1,000 mcg Fentanyl Citrate (Fentanyl Citrate Pf 100 Mcg/2 Ml Vial) 25 mcg IV Q5M PRN PRN Reason: PACU Use Only-Pain Stop: 08/02/22 19:08 Ferrous Sulfate (Ferrous Sulfate 325 Mg Tab) 325 mg PO Q48H [facility] Stop: 08/31/22 08:59 Last Admin: 08/01/22 08:20 Dose: 325 mg Heparin Sodium (Porcine) (Heparin 100 Unit/Ml 5ml Flush) 5 ml FLUSH PRN PRN PRN Reason: Flush Stop: 08/31/22 00:00 Loratadine (Loratadine 10 Mg Tab) 10 mg PO QAM [facility] Stop: 08/31/22 08:59 Last Admin: 08/02/22 08:18 Dose: 10 mg Magnesium Hydroxide (Magnesium Hydroxide Susp 30 Ml Udc) 30 ml PO Q12H PRN PRN Reason: Constipation Stop: 08/30/22 14:49 Misoprostol (Misoprostol 100 Mcg Tab) 100 mcg PO AMHS [facility] Stop: 08/30/22 20:59 Last Admin: 08/02/22 08:18 Dose: 100 mcg Multivitamins/Folic Acid/Vitamin C (Multivitamin Chewable Tab) 1 tab PO DAILY [facility] Stop: 08/31/22 08:59 Last Admin: 08/02/22 08:18 Dose: 1 tab Ondansetron HCl (Ondansetron Inj 2 Mg/Ml 2 Ml Vial) 4 mg IV Q6H PRN PRN Reason: Nausea Stop: 08/30/22 14:49 Last Admin: 07/31/22 18:16 Dose: 4 mg Ondansetron HCl (Ondansetron Inj 2 Mg/Ml 2 Ml Vial) 4 mg IV ONCE PRN PRN Reason: PACU Use Only-Nausea/Vomiting Stop: 08/02/22 19:08 Pantoprazole Sodium (Pantoprazole 40 Mg Tab) 40 mg PO [facility]; Protocol Stop: 08/30/22 20:59 Last Admin: 08/02/22 09:10 Dose: 40 mg Polyethylene Glycol (Polyethylene (Miralax) 17 Gm Pack) 17 gm PO DAILY PRN PRN Reason: Constipation Stop: 08/30/22 14:49 Sucralfate (Sucralfate 1 Gm/10 Ml Udc) 1 gm PO [facility] Stop: 08/30/22 20:59 Last Admin: 08/02/22 08:18 Dose: 1 gm Topiramate (Topiramate 50 Mg Tab) 50 mg PO BID [facility] Stop: 08/30/22 20:59 Last Admin: 08/02/22 08:18 Dose: 50 mg Trazodone HCl (Trazodone Hcl 100 Mg Tab) 100 mg PO [facility] Stop: 08/30/22 20:59 Last Admin: 08/01/22 20:01 Dose: 100 mg Venlafaxine HCl (Venlafaxine Hcl 37.5 Mg Tab) 75 mg PO [facility] Stop: 08/31/22 20:59 Last Admin: 08/02/22 08:18 Dose: 75 mg Vitamin D (Cholecalciferol 5,000 Units 125 Mcg Tab) 5,000 units PO DAILY [facility] Stop: 08/31/22 08:59 Last Admin: 08/02/22 08:18 Dose: 5,000 units
--- NOTE | 2022-08-02 14:35 | Magnetic Resonance Report ---
MR brain MS wo/w con HISTORY: 32 years-old Female worsening bilateral weakness chronic lower extremity weakness with loss of balance COMPARISON: MRI cervical spine of same day, brain MRI 12/26/2018 TECHNIQUE: Multiplanar multisequence MRI of the brain was obtained both with and without the use of 8 .2 cc Gadavist FINDINGS: No restricted diffusion to suggest acute or subacute infarct. Midline structures appear unremarkable. Degenerative changes of the imaged cervical spine. No acute intracranial hemorrhage, midline shift, abnormal extra-axial collection, hydrocephalus or intracranial mass. No pathologic blooming artifact. No abnormal enhancement. Study is mildly motion degraded. Extensive T2 hyperintensity again noted wi thin the imaged cervical spinal cord and cervical medullary junction. Additional extensive white kristian er T2/FLAIR hyperintense foci throughout the white matter of the cerebral hemispheres appear generall y stable with additional ill-defined foci noted within the dentate nuclei of the cerebellum. Cerebral venous sinuses and major arterial flow voids appear patent. The skull, orbits and soft tissu es are unremarkable. Mucosal thickening of the paranasal sinuses is moderate within the right maxilla ry sinus. The mastoid air cells are clear. IMPRESSION: 1. No acute intracranial abnormality. 2. Extensive T2/FLAIR signal abnormality redemonstrated throughout the brain parenchyma and imaged ce rvical spinal cord compatible with demyelinating plaques associated with the patient's clinical histo ry of multiple sclerosis. 3. No abnormal enhancement identified to suggest active demyelination. ACT 112: Negative or not required by law. The above report was generated using voice recognition software. It may contain grammatical, syntax o r spelling errors. Electronically signed by: Ky Mcdaniel M.D. 08/02/2022 2:33 PM
--- NOTE | 2022-08-02 14:54 | Anesthesiology Progress Note ---
Date of Service August 02, 2022 Anesthesia Post Procedure Vital Signs Vital Signs: Temp Pulse Pulse Resp BP Pulse Ox Pulse Ox 08/02/22 14:00 100 08/02/22 14:44 36.8 C 77 16 122/88 100 08/02/22 14:34 36.3 C L 78 18 118/72 99 08/02/22 14:25 86 18 115/92 99 08/02/22 14:15 36.2 C L 80 20 122/89 100 08/02/22 11:01 36.5 C 80 20 134/92 100 08/02/22 07:56 76 08/02/22 07:52 36.4 C L 80 16 127/93 100 08/02/22 04:08 36.7 C 86 20 121/86 97 08/01/22 22:50 79 08/02/22 00:04 36.4 C L 77 20 131/94 100 08/01/22 18:40 36.5 C 95 H 18 117/78 100 08/01/22 15:39 36.3 C L 93 H 18 120/85 100 O2 Del Method O2 Del Method 08/02/22 14:00 Room Air 08/02/22 14:44 Room Air 08/02/22 14:34 Room Air 08/02/22 14:25 Room Air 08/02/22 14:15 Room Air 08/02/22 11:01 Room Air 08/02/22 07:56 08/02/22 07:52 Room Air 08/02/22 04:08 Room Air 08/01/22 22:50 08/02/22 00:04 Room Air 08/01/22 18:40 Room Air 08/01/22 15:39 Room Air Pain Intensity Bilateral Back: Pain Intensity: 6 Transfer of Care Handoff Completed per policy Notes Mental Status: alert / awake / arousable Patient Amnestic to Procedure: Yes Nausea / Vomiting: adequately controlled Pain: adequately controlled Airway Patency, RR, SpO2: stable & adequate BP & HR: stable & adequate Hydration State: stable & adequate Anesthetic Complications: no major complications apparent
--- NOTE | 2022-08-02 17:07 | Neurology Progress Note ---
Date of Service August 02, 2022 Assessment & Plan (1) Multiple sclerosis: Plan: Impression: The patient has well-established diagnosis of multiple sclerosis, affecting brain, cervical and thoracic spine. Her last MRI studies from June 2022 showed only 1 new lesion of brain, with chronic demyelinating plaques involving brain and spinal cord. The patient also has decreased sensation in lower extremities, which can be due to MS but polyneuropathy is in differential. Based on recently worsening lower extremity weakness, sensory symptoms, and frequent falls, brain, cervical and thoracic spine MRIs with and without contrast were ordered to rule out exacerbation. So far, MRI findings did not show any acute lesion or contrast-enhancing lesion. The patient reports improvement of ambulation and lower extremity weakness back to her baseline. Recommendations/plan: There is no indication for pulse steroid treatment. Physical exercises and outpatient physical therapy as recommended. Fall precautions are fully explained to patient. The patient should avoid walking on uneven surfaces and in dark environment. Obviously, her balance is more depends on visual cues. She will use walker as needed. The patient will continue using home medications as before. She will look followed by her MS specialist as scheduled before. She will inform them regarding recent hospitalization. The patient is neurologically stable and can be discharged home. (2) Bilateral leg weakness: Plan: Impression: The patient has some weakness in lower extremities. However, her ambulation is affected more significantly, which can be partially due to decreased sensation in lower extremities. Differential diagnosis includes secondary progressive MS versus peripheral polyneuropathy. Recommendations/plan: The patient will need outpatient evaluation for possible superimposed peripheral polyneuropathy. (3) History of gastric bypass: (4) Gastric bypass status for obesity: Admission and Anticipated Discharge Date Admission Date: July 31, 2022 Subjective The patient reports improvement in all lower extremity weakness, gait disturbance, back to her baseline. MRI studies did not show acute or contrast- enhancing lesion. Thoracic spine official report is pending. The patient denies any new neurological symptoms. MRI findings are fully explained to patient and family. I have answered their questions in detail. Review of Systems Review of Systems: All systems reviewed & are unremarkable except as noted in Subjective Physical Exam Physical Exam: General Examination: Constitutional: Well developed person in no acute distress. HENT: Normal exam with inspection. CV: Hearth rhythm is regular. Neck: Supple, no carotid bruits. Lungs: Non-labored and comfortable breathing. Abdomen: Soft, non-tender, non-distended. Skin: No rash or ecchymosis. Extremities: No edema or cyanosis NEUROLOGICAL EXAMINATION: Mental Status: Alert and oriented to place, person and time. Cranial Nerves: II-XII are intact. No nystagmus. Funduscopy: Normal looking optic discs. Motor: 5/5 in upper extremities without asymmetry. Bilateral ankle dorsiflexors are 4+ out of 5. Right lower extremity strength is 4+ to 5- out of 5, and left lower extremity strength is 5 out of 5. Tone: Normal without spasticity or rigidity. Sensory: Decreased sensation in lower extremities up to mid thighs, to all sensory modalities. Coordination: No dysmetria with FTN testing. Speech: Fluent. Comprehension is intact. Gait: Wide-based walking. The patient can ambulate independently. Slight spastic gait is noticed. Musculoskeletal: Normal muscle bulk, no atrophy. DTRs: 2+ in upper extremities, trace in knees, and absent in ankles. Plantar reflexes are bilaterally downgoing. Results & Data Vital Signs (Past 12 Hours) Vital Signs Temp Pulse Pulse Resp BP Pulse Ox Pulse Ox 08/02/22 16:50 101 H 08/02/22 15:38 36.3 C L 96 H 16 113/79 100 08/02/22 15:11 36.3 C L 84 16 123/88 98 08/02/22 14:00 100 08/02/22 14:44 36.8 C 77 16 122/88 100 08/02/22 14:34 36.3 C L 78 18 118/72 99 08/02/22 14:25 86 18 115/92 99 08/02/22 14:15 36.2 C L 80 20 122/89 100 08/02/22 11:01 36.5 C 80 20 134/92 100 08/02/22 07:56 76 08/02/22 07:52 36.4 C L 80 16 127/93 100 O2 Del Method O2 Del Method 08/02/22 16:50 08/02/22 15:38 Room Air 08/02/22 15:11 Room Air 08/02/22 14:00 Room Air 08/02/22 14:44 Room Air 08/02/22 14:34 Room Air 08/02/22 14:25 Room Air 08/02/22 14:15 Room Air 08/02/22 11:01 Room Air 08/02/22 07:56 08/02/22 07:52 Room Air Diagnostic Findings Chest X-Ray 07/31/22 12:57 XR chest 1V not portable HISTORY: 32 years-old Female weakness acute weakness COMPARISON: 11/05/2021 TECHNIQUE: PA view of the chest FINDINGS: Cardiomediastinal and hilar silhouettes are within normal limits. Left IJ Cmzbwh-k-Hlod catheter distal tip is noted in the expected location of the mid SVC. No pneumothorax, pleural effusion, airspace consolidation or pulmonary edema. Bones appear grossly intact. Cholecystectomy with surgical clips in the epigastric distribution. IMPRESSION: No acute process. ACT 112: Negative or not required by law. The above report was generated using voice recognition software. It may contain grammatical, syntax or spelling errors. Electronically signed by: Ky Mcdaniel M.D. 07/31/2022 1:35 PM Knee X-Ray 07/31/22 13:02 LEFT KNEE 3 VIEWS CLINICAL HISTORY: Fall with left knee pain. FINDINGS: AP, crosstable lateral, and sunrise views of the left knee are compared to study dated 06/10/2020. The skeletal structures are well mineralized. No fracture is seen. The joint spaces are maintained. Mild apparent hyperflexion on the lateral view may be related to positioning. There is no significant joint effusion. Prepatellar soft tissue swelling is observed. IMPRESSION: Mild soft tissue swelling with no fracture identified. Electronically signed by: Don Laird M.D. 07/31/2022 1:36 PM Brain MRI 08/02/22 00:00 MR brain MS wo/w con HISTORY: 32 years-old Female worsening bilateral weakness chronic lower extremity weakness with loss of balance COMPARISON: MRI cervical spine of same day, brain MRI 12/26/2018 TECHNIQUE: Multiplanar multisequence MRI of the brain was obtained both with and without the use of 8.2 cc Gadavist FINDINGS: No restricted diffusion to suggest acute or subacute infarct. Midline structures appear unremarkable. Degenerative changes of the imaged cervical spine. No acute intracranial hemorrhage, midline shift, abnormal extra-axial collection, hydrocephalus or intracranial mass. No pathologic blooming artifact. No abnormal enhancement. Study is mildly motion degraded. Extensive T2 hyperintensity again noted within the imaged cervical spinal cord and cervical medullary junction. Additional extensive white matter T2/FLAIR hyperintense foci throughout the white matter of the cerebral hemispheres appear generally stable with additional ill-defined foci noted within the dentate nuclei of the cerebellum. Cerebral venous sinuses and major arterial flow voids appear patent. The skull, orbits and soft tissues are unremarkable. Mucosal thickening of the paranasal sinuses is moderate within the right maxillary sinus. The mastoid air cells are clear. IMPRESSION: 1. No acute intracranial abnormality. 2. Extensive T2/FLAIR signal abnormality redemonstrated throughout the brain parenchyma and imaged cervical spinal cord compatible with demyelinating plaques associated with the patient's clinical history of multiple sclerosis. 3. No abnormal enhancement identified to suggest active demyelination. ACT 112: Negative or not required by law. The above report was generated using voice recognition software. It may contain grammatical, syntax or spelling errors. Electronically signed by: Ky Mcdaniel M.D. 08/02/2022 2:33 PM Cervical Spine MRI 08/02/22 08:00 CERVICAL SPINE MRI WITH AND WITHOUT CONTRAST HISTORY: Multiple sclerosis. Weakness. TECHNIQUE: Multiplanar multisequence MRI of the cervical spine was performed both before and after the use of intravenous contrast. COMPARISON STUDY: Cervical spine MRI 12/26/2018. FINDINGS: There is mild motion artifact. There is again noted extensive T2 signal abnormality seen throughout the majority of the cervical and upper thoracic spinal cord. This is similar to the prior study. This is consistent with the patient's known history of multiple sclerosis. Measurements are difficult to obtain due to the near confluent appearance of the suspected white matter plaques of the cervical spinal cord. No abnormal enhancement to suggest active demyelination. No fracture or subluxation within the cervical spine. Straightening of the cervical spine.. Prevertebral soft tissues and the C1-C2 interval are intact. Disc spaces are preserved. C2-C3: No significant central canal or neural foraminal narrowing. C3-C4: No significant central canal or neural foraminal narrowing. C4-C5: No significant central canal or neural foraminal narrowing. C5-C6: No significant central canal or neural foraminal narrowing. C6-C7: No significant central canal or neural foraminal narrowing. C7-T1: No significant central canal or neural foraminal narrowing. IMPRESSION: No significant change in the extensive T2 hyperintensity within the cervical spinal cord and visualized portions of the upper thoracic spinal cord consistent with white matter plaques in the setting of multiple sclerosis. No abnormal enhancement to suggest active demyelination. ACT 112: Negative or not required by law. Electronically signed by: Yusuf Mejia M.D. 08/02/2022 2:24 PM
--- NOTE | 2022-08-02 17:29 | Discharge Summary ---
Date of Service August 02, 2022 Admission HPI Per Admitting Provider Ms. Jerome is a 32-year-old female who presented to the [facility] today from her outpatient PCP office after having experienced increasing weakness in her legs resulting in 2 falls yesterday after her legs felt like "Jell-O". She reports that she was standing at her front door waiting for her dad to come back inside and both of her legs gave out. She noted that she went and sat down and later on in the day something similar happened. She did not hit her head or lose consciousness with either fall. She denies any syncopal symptoms associated with the events. 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 Patient does follow with neurology in [place] and most recently had a brain MRI in 06/28 resulting in new MS lesions. She does take all previous infusions with her last 1 being 05/28. Her outpatient PCP recommended additional follow-up brain MRI to monitor for additional lesions with neurology follow-up. Brain MRI 06/27: New enhancing presumably demyelinating lesions in the cortical/juxtacortical left temporal occipital lobe. Cervical and Thoracic MRI: Numerous cervical and thoracic cord demyelinating lesion without evidence of new lesions. After review of EMR, patient historically does have sedation with all MRI's due to lower back pain and her inability to lie flat related to her Multiple Sclerosis. Patient reports that she has abstained from alcohol since January 2022 with her last drink being January 06, 2022. Patient denies tobacco use or recr eational drug use. Patient denies headache, dizziness, visual changes, auditory changes, nausea, vomiting, diarrhea, bowel or bladder changes, recent trauma. Patient is sitting upright in her hospital bed AAOx4 and in no apparent distress. Patient hemodynamically stable. Patient sitting with her legs crossed underneath her and able to stretch them out independently. No focal or motor deficit appreciated, no decrease in sensation in the lower extremities and she has independent movement 5 out of 5 bilateral lower extremities. Patient will be admitted for further evaluation and management. Please see A/P for further details. Admission Exam Per Admitting Provider Physical Exam: Neuro: AAOx4, PERRLA, no aphagia, memory changes, CNII-XII grossly intact HEENT: head normocephalic, moist mucus membranes CV: S1/S2, (-) M/G/R, (-) edema, cap refill < 3 seconds Resp: Lungs CTA in all antonio. On RA GI: Abdomen S/NT/ND, Ax4 bowel sounds, (-) CVA tenderness Musculoskeletal: 5/5 B/L UE strength, 5/5 B/L LE strength. No gait disturbance Skin: (-) rashes , (-) erythema. Psych: euthymic mood Principal Diagnosis Bilateral leg weakness with history of multiple sclerosis, history of upper extremity DVT following surgery not on any anticoagulation, gastric bypass status, chronic anemia Discharge Exam Lying in bed comfortably Constitutional well developed, well nourished and + obese Eyes PERRL, conjunctivae normal, anicteric sclerae ENMT external ear and nose normal, oropharynx normal Neck trachea midline, no thyromegaly Respiratory no respiratory distress Auscultation: lungs clear to auscultation bilaterally Cardiovascular Rate/Rhythm: regular rate and regular rhythm; not tachycardic Heart Sounds: normal S1 and normal S2; no murmur Extremities: + edema (Trace edema bilaterally) Gastrointestinal (Abdomen) Inspection/Auscultation: normal bowel sounds; abdomen not distended Percussion/Palpation: abdomen soft; abdomen nontender Neurologic normal touch/pain/proprioception and moves all extremities; no focal motor deficits Psychiatric A+Ox3, euthymic affect Lymphatic no cervical or axillary lymphadenopathy Discharge Data Allergies Allergy/AdvReac Type Severity Reaction Status Date / Time Sulfa (Sulfonamide Allergy Severe Hives Verified 07/31/22 15:20 Antibiotics) Cephalosporins Allergy Intermediate Hives Verified 07/31/22 15:20 hydrocodone Allergy Intermediate Itching Verified 07/31/22 15:20 methocarbamol Allergy Mild Rash Verified 07/31/22 15:20 clindamycin AdvReac Intermediate Heartburn Verified 07/31/22 15:20 Consultations 07/31/22 14:50 Consult Neurology Routine 07/31/22 14:54 ED Decision to Admit Stat Procedures Performed Operation Date: 08/02/22 11:30 <No data on this case meets the specified criteria> Ordered Studies 08/02/22 00:00 MR brain MS wo/w con Routine MR thoracic spine wo/w con Routine 08/02/22 08:00 MR cervical spine wo/w con Routine Hospital Course (1) Multiple sclerosis: (2) Bilateral leg weakness: (3) History of deep vein thrombosis: (4) Iron deficiency anemia: (5) History of gastric bypass: (6) Depression: Plan 32-year-old with multiple sclerosis presenting with bilateral leg weakness. Additional past medical history includes history of DVT, anemia, history of gastric bypass, migraines and depression. Brain MRI 06/27 with new enhancing demyelinating lesions. Repeat imaging to investigate further progression of disease. Neuro consult placed. Multiple sclerosis: Bilateral leg weakness: Follows with [facility] neurology Chronic pain Bilateral lower extremity weakness Last infusion May 2022; Ocrevus infusions Brain MRI 06/27: New enhancing presumably demyelinating lesions in the cortical/juxtacortical left temporal occipital lobe. Cervical and Thoracic MRI: Numerous cervical and thoracic cord demyelinating lesion without evidence of new lesions Outpatient PCP recommended repeat brain, cervical and thoracic MRI; historically done with sedation; discussed with MRI who will schedule for tomorrow 08/01/22 Patient historically does have sedation with all MRI's due to lower back pain and her inability to lie flat related to her Multiple Sclerosis. NPO after MN. Still getting occasional numbness and heaviness involving the lower extremities and no other symptoms She will have MRI of the head, cervical and thoracic spine under sedation tomorrow at 11:30 AM-MRI department is aware MRI of the head, cervical and thoracic spine did not show any active lesions Discussed with the neurologist who will be seeing her this afternoon and following that she will be discharged home History of DVT: Upper extremity following vascular surgery; not on any chronic anticoagulation No other symptoms associated with it Anemia: History of gastric bypass: Bleeding gastric ulcer 12/25; was due to undergo endoscopy today for follow-up Hemoglobin 12.5 Takes Flinstones vitamin; continue No need for GI consult at this time; reassess after Neuro concerns addressed; ideally have endoscopy as OPT as previously planned No overt signs of anemia No GI symptoms and no history of hematemesis and melena-no need to involve GI to do the procedure Depression: Takes Effexor; continue H/O Migranes: Takes Rizatriptan Disposition: PCP:Dr. Figueroa Code Status: Full Code VTE Prophylaxis: Teds and SCDs for now A total of 50 minutes spent with the patient discussing the results of the MRI, examining her, reviewing her medications and discussion with the specialist. Total Time Total Time Spent Total Time Spent (In Minutes): 35 minutes Discharge Plan Discharge Items Patient Disposition: Home - Self-Care Reason For Visit: WEAKNESS Discharge Diagnosis: Bilateral leg weakness with history of multiple sclerosis, history of upper extremity DVT following surgery not on any anticoagulation, gastric bypass status, chronic anemia Condition on Discharge: Good Activity: Resume your previous activity Non-emergency contact: Primary Care Provider Call non-emergency contact if: you have any medication questions and your symptoms worsen Follow-up/Referrals: Kimberly Figueroa MD [Primary Care Provider] - (Date & Time 08/07/2022 2:00 PM Provider Kimberly Figueroa MD Department General Internal Medicine [facility] ) Frida Ramírez PA-C [Outside Practitioners] - (Date & Time 10/23/2022 11:00 AM Provider Frida Ramírez PA-C Department Neurology, [place] ) Diet: Regular Addtl Attending Provider Instructions: Please take precautions to avoid falls Please take your medications as advised Keep appointment with the neurologist in [place] Pending Studies at Discharge: No Stand-Alone Forms: My [employer], Smoking Cessation Medications and DC Order Prescriptions: Continued cyanocobalamin (vitamin B-12) 1,000 mcg/mL Solution 1,000 mcg IM MONTHLY hydroxyzine HCl 10 mg tablet 10 mg PO HS PRN (Reason: Anxiety) medroxyprogesterone 150 mg/mL suspension 150 mg IM .EVERY 3 MONTHS Rx Instructions: last given 05/23/22 cranberry 500 mg Capsule 500 mg PO DAILY cholecalciferol (vitamin D3) [Vitamin D3] 1,000 unit Capsule 1,000 unit PO DAILY topiramate 50 mg tablet 50 mg PO BID cholecalciferol (vitamin D3) [Vitamin D3] 5,000 unit Tablet 5,000 unit PO DAILY rizatriptan 10 mg tablet 10 mg PO DIRECTED PRN (Reason: Headache) Rx Instructions: TAKE ONE TABLET AT ONSET OF HEADACHE MAY REPEAT DOSE IN 2 HOURS IF NEEDED Ocrevus 30 mg/mL Solution 300 mg IV .[id number] albuterol sulfate 2.5 mg /3 mL (0.083 %) Solution For Nebulization 2.5 mg INHALATION Q4H PRN (Reason: Wheezing) albuterol sulfate [ProAir HFA] 90 mcg/actuation Hfa Aerosol Inhaler 2 puff INHALATION Q4H PRN (Reason: Wheezing) promethazine 25 mg Tablet 25 mg PO Q6H PRN (Reason: Nausea or Vomiting) budesonide 32 mcg/actuation spray,non-aerosol 1 spray intranasal BID PRN (Reason: Allergy Symptoms) azelastine 137 mcg (0.1 %) aerosol,spray 1 spray intranasal BID PRN (Reason: Allergy Symptoms) venlafaxine 75 mg tablet 75 mg PO [facility] trazodone 100 mg tablet 100 mg PO HS omeprazole 40 mg capsule,delayed release(DR/EC) 40 mg PO [facility] misoprostol 100 mcg tablet 100 mcg PO [facility] ferrous sulfate 325 mg (65 mg iron) tablet 325 mg PO Q OTHER DAY sucralfate 100 mg/mL suspension 1 g PO [facility] loratadine 10 mg Tablet 10 mg PO QAM Flintstones Complete Tablet,Chewable 1 tab PO DAILY Discharge Orders: Discharge Order (Routine); Ordered 08/02/22 Ordered By: Stephanie Box Admission Data Admit Date/Time: 07/31/22 14:50 Attending Provider: Stephanie Box Admit Provider: Stephanie Box Primary Care Provider: Kimberly Figueroa Other Providers: Thaddeus Mcdonald ; Stephanie Box
--- NOTE | 2022-08-02 18:01 | Magnetic Resonance Report ---
MR thoracic spine wo/w con CLINICAL HISTORY: ms/weakness TECHNIQUE: Multiplanar sequences through the thoracic spine were obtained, without and with intraveno us contrast. Comparison: Comparison is made to thoracic spine radiographs 07/09/2016 FINDINGS: The alignment is anatomical. Disks are normal in height and signal. The spinal canal and neural foramina are patent. The spinal ligaments are intact, without evidence of disruption or abnormal signal intensity. Numerou s foci of T2 hyperintensity are seen extending from the visualized cervical spine to the lower thorac ic spine. No abnormal enhancement is seen. Visualized soft tissues are normal. IMPRESSION: Multifocal T2 hyperintensity in the thoracic cord and visualized lower cervical cord compatible with prior demyelination foci in this patient with multiple sclerosis. No evidence of abnormal enhancement to suggest active demyelination. ACT 112: Negative or not required by law. Electronically signed by: Kingsley Jacobs M.D. 08/02/2022 5:58 PM
== END 2022-08-02 17:52 | disposition home or self-care (01) | DRG 74 ==
LOC: ED 12:43 → 2N 14:50

== ENCOUNTER 2023-02-12 14:59 | Inpatient (IN) ==
--- NOTE | 2023-02-12 15:16 | ED Triage Note ---
Date of Service February 12, 2023 History of Present Illness This patient was briefly evaluated while in triage. An abbreviated physical exam was performed. This patient is a 32-year-old Female who presents to the ED for evaluation of right arm swelling and rash on chest started 3-4 days ago was at Dr. Figueroa's office and sent here for cellulitis vs. DVT history of RUE DVT from failed port placement Physical Exam GENERAL: NAD CARDIOVASCULAR: RRR RESPIRATORY: CTA EXT: no gross abnormality of the RUE chest/breast not visualized in triage Initial orders for labs and / or imaging were placed and patient was placed in the waiting area until a bed is available. Please see further documentation for the full ED course.
[2023-02-12 16:42] LABS: Hematocrit (blood only) 32.3 % (37.0-47.0); Hemoglobin 11.4 g/dl (12.0-16.0); Mean Corpuscular Hemoglobin 32.9 pg (25.0-34.0); Mean Corpuscular Hgb Conc 35.3 g/dL (32.0-36.0); Mean Corpuscular Volume 93.1 fL (80.0-100.0); Mean Platelet Volume 10.2 fL (9.4-12.4); Platelet Count 373 K/uL (130-400); RDW Coefficient of Variation 13.2 % (11.5-14.5); RDW Standard Deviation 45.1 fL (36.4-46.3); Red Blood Count 3.47 M/uL (4.20-5.40); White Blood Count 3.16 K/ul (4.8-10.8)
[2023-02-12 16:57] LABS: Alanine Aminotransferase 8 U/L (7-52); Albumin Globulin Ratio 1.2 (0.9-2); Albumin Level 3.1 gm/dl (3.4-5.0); Alkaline Phosphatase 154 U/L (34-104); Anion Gap 11 (3-11); Aspartate Aminotransferase 16 U/L (13-39); BUN Creatinine Ratio 5.9 (10-20); Bilirubin,Total 1.5 mg/dl (0.2-1.0); Blood Urea Nitrogen 3 mg/dl (6-23); Calcium 8.4 mg/dl (8.6-10.3); Carbon Dioxide 21 mmol/L (21-32); Chloride 101 mmol/L (98-107); Est GFR (African American) 146.4 ml/min; Est GFR (Non-African American) 126.3 ml/min; Globulin 2.6 gm/dl (2.5-4.0); Glucose 91 mg/dl (70-99(Fasting)); Potassium 3.4 mmol/L (3.5-5.1); Sodium 133 mmol/L (136-145); Total Protein 5.7 gm/dl (6.0-8.3)
[2023-02-12 17:23] LABS: INR 1.2 (0.9-1.1); Partial Thromboplastin Ratio 3.9; Prothrombin Time 12.6 Seconds (9.0-12.0)
--- NOTE | 2023-02-12 17:23 | Emergency Department Note ---
History of Present Illness General Chief complaint: Swelling/Edema to Extremity Stated complaint: REF BY , POSSIBLE BLOOD CLOT Time Seen by Provider: 02/12/23 17:09 History of Present Illness Provider complaint: Right breast rash Onset (ago): day(s) 4 Location: chest and right Maximum Pain Intensity: 9 Associated symptoms: + rash 32-year-old female presents emergency department for right breast rash. Patient reports her symptoms been present for the last 4 to 5 days. She reports no fe vers. No chest pain or difficulty breathing. She also reports swellings in her bilateral upper extremities. Home Medications Medication Instructions Recorded Confirmed Type albuterol sulfate 2.5 mg/3 mL 2.5 mg inhalation Q4H PRN Wheezing 12/26/18 02/12/23 History (0.083 %) solution for nebulization albuterol sulfate 90 mcg/actuation 2 puff inhalation Q4H PRN Wheezing 12/26/18 02/12/23 History aerosol inhaler (ProAir HFA) cholecalciferol (vitamin D3) 125 5,000 unit PO QAM 12/26/18 02/12/23 History mcg (5,000 unit) tablet (Vitamin D3) cholecalciferol (vitamin D3) 25 1,000 unit PO QAM 12/26/18 02/12/23 History mcg (1,000 unit) capsule (Vitamin D3) cranberry 500 mg capsule 500 mg PO QAM 12/26/18 02/12/23 History cyanocobalamin (vitamin B-12) 1,000 mcg IM MONTHLY 12/26/18 02/12/23 History 1,000 mcg/mL injection solution hydroxyzine HCl 10 mg tablet 10 mg PO HS PRN Anxiety 12/26/18 02/12/23 History medroxyprogesterone 150 mg/mL 150 mg IM .EVERY 3 MONTHS 12/26/18 02/12/23 History intramuscular suspension ocrelizumab 30 mg/mL intravenous 300 mg IV .[id number] 12/26/18 02/12/23 History solution (Ocrevus) promethazine 25 mg tablet 25 mg PO Q6H PRN Nausea or Vomiting 12/26/18 02/12/23 History rizatriptan 10 mg tablet 10 mg PO DIRECTED PRN Headache 12/26/18 02/12/23 History topiramate 50 mg tablet 50 mg PO BID 12/26/18 02/12/23 History loratadine 10 mg tablet 10 mg PO QAM 07/31/22 02/12/23 History misoprostol 100 mcg tablet 100 mcg PO AMHS 07/31/22 02/12/23 History omeprazole 40 mg capsule,delayed 40 mg PO AMHS 07/31/22 02/12/23 History release pediatric multivitamin no.76 1 tab PO QAM 07/31/22 02/12/23 History (Flintstones Complete chewable tablet) sucralfate 100 mg/mL oral 1 g PO AMHS 07/31/22 02/12/23 History suspension venlafaxine 75 mg tablet 75 mg PO AMHS 07/31/22 02/12/23 History Allergies Allergy/AdvReac Type Severity Reaction Status Date / Time Cephalosporins Allergy Intermediate Hives Verified 02/12/23 18:31 clindamycin Allergy Intermediate HIVES/HEART Verified 02/12/23 18:31 BURN hydrocodone Allergy Intermediate Itching Verified 02/12/23 18:31 methocarbamol Allergy Intermediate ITCHY RASH Verified 02/12/23 18:31 Sulfa (Sulfonamide Allergy Intermediate Hives Verified 02/12/23 18:31 Antibiotics) cephalexin Allergy Unknown HAPPENED Verified 02/12/23 18:31 A SMALL CHILD Past Med/Surg History Medical History Anxiety Depression Difficulty walking 02/04/23-- states was seen at [facility] ER twice in the past week for diffculty ambulating History of COVID-19 06/2020- cough; resolved History of deep vein thrombosis 2013- right arm History of multiple sclerosis Hx of peptic ulcer Hx of upper gastrointestinal hemorrhage 12/2021 Hypoglycemia states normally runs very low Iron deficiency anemia Migraine Obesity Patellofemoral dysfunction of right knee Postgastric surgery syndrome Surgical History History of esophagogastroduodenoscopy (EGD) History of gastric bypass History of insertion of tunneled central venous catheter (CVC) with port History of liver biopsy Hx of tonsillectomy Hx of tooth extraction Hx of wisdom tooth extraction S/P cholecystectomy S/P surgery on nasal septum Family History Other Diabetes Encounter for pre-operative examination Hypertension Social History Smoking Status: Never smoker Second Hand Exposure: No; Do You Dip or Chew Tobacco: No; Hx Alcohol Use: Yes Alcohol type: beer Alcohol type Comment: 6 beers approx every other day Hx Substance Use: No Preferred Language: Belarusian Communication Ability: Effective Engine Pilot Required: No Beliefs That Will Affect Care: None marital status: Single Current Living Situation: Parent current occupational status: unemployed and disabled current occupation: disabled 2/2 to MS dx at 18 Feels Safe at Home: Yes Assistive Devices: Denture - Upper, Denture - Lower, Glasses and Wheelchair Physical Exam Vital Signs Vital Signs - 24 hr 02/12/23 15:13 02/12/23 17:05 02/12/23 17:56 Temperature 36.7 C Temperature Source Temporal Artery Scan Pulse Rate 105 H 107 H Pulse Rate [Apical] 108 H Respiratory Rate 20 20 13 Respiratory Effort / Characteristics Non-Labored Spontaneous Respiratory Depth Normal Blood Pressure 129/81 138/87 Blood Pressure [Left Arm] 143/105 H Blood Pressure Mean 97 104 Blood Pressure Mean [Left Arm] 117 Blood Pressure Position [Left Arm] Sitting Pulse Oximetry 97 100 Oxygen Delivery Method Room Air Room Air Sepsis Recent Fever Within 48 Hours No Sepsis New/Unexplained Change in Mental Status No Sepsis Action Taken by Nursing No Action Required 02/12/23 18:00 02/12/23 18:30 Temperature Temperature Source Pulse Rate 104 H 103 H Pulse Rate [Apical] Respiratory Rate 17 18 Respiratory Effort / Characteristics Respiratory Depth Blood Pressure 125/91 138/89 Blood Pressure [Left Arm] Blood Pressure Mean 102 105 Blood Pressure Mean [Left Arm] Blood Pressure Position [Left Arm] Pulse Oximetry 100 100 Oxygen Delivery Method Room Air Room Air Sepsis Recent Fever Within 48 Hours Sepsis New/Unexplained Change in Mental Status Sepsis Action Taken by Nursing Physical Exam was conducted in the Ultrasound room with 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 appears well-developed and well- nourished. HENT: Exam performed. - Head: Normocephalic and atraumatic. EYES: Conjunctivae and EOM are normal. Right eye exhibits no discharge. Left eye exhibits no discharge. No scleral icterus. NECK: Normal range of motion. Neck supple. No JVD present. CV: Normal rate, regular rhythm, normal heart sounds and intact distal pulses. There is no peripheral edema. Palpable radial pulses bue. PULM/CHEST: Effort normal and breath sounds normal. No respiratory distress. No stridor. no wheezes. no rales. BREAST: Right breast: Erythema and redness over the center of the right breast. No palpable abscess. No discharge from the nipple or blood from the nipple. ABD: The abdomen is soft. There is no tenderness. NEURO: Motor and sensation grossly intact. SKIN: Skin is warm and dry. He is not diaphoretic. PSYCH: normal mood and affect. Behavior is normal. Judgment and thought content normal. Course Course 1708: The patient was evaluated in room Ultrasound room. A complete history and physical exam was performed Patient was seen during a time of extreme volume and extreme acuity in the emergency department. Nursing triage protocols were initiated and labs and chepe ging were conducted by protocol in the triage area. Ultrasound of the breast will be added to the patient's ultrasound of the upper extremity that is placed in the triage area. 1800: Vital signs stable. Labs show white blood cell count of 3.16. Hemoglobin 11.4. Neutrophil count 0.45. Lactic acid 3. Ultrasound shows no abscess but does show breast cellulitis. Patient will be admitted for breast cellulitis. Vancomycin given in the emergency department. [facility] Administ[facility] Medications Melatonin (Melatonin 3 Mg Tab) 6 mg PO HS FRANCISCA Stop: 03/14/23 19:59 Last Admin: 02/12/23 20:52 Dose: 6 mg Documented By: EDGAR Discontinued Medications Vancomycin HCl 1,750 mg/ (Sodium Chloride) 535 mls @ 200 mls/hr IV NOW ONE Stop: 02/12/23 20:37 Last Admin: 02/12/23 18:58 Dose: 200 mls/hr Documented By: EDGAR Sodium Chloride (Nss) 2,000 mls @ 999 mls/hr IV .Q2H1M ONE Stop: 02/12/23 19:57 Last Infusion: 02/12/23 20:33 Dose: 0 mls/hr Documented By: Admin: 02/12/23 18:04 Dose: 999 mls/hr Documented By: EDGAR Thiamine HCl (Thiamine Hcl 100 Mg Tab) 100 mg PO NOW ONE Stop: 02/12/23 19:16 Last Admin: 10/10/23 19:48 Dose: 100 mg Documented By: [facility] Medical Decision Making Laboratory Data Attestation: I reviewed the patient's lab results. 02/12/23 15:43 02/12/23 15:43 Lab Results 02/12/23 02/12/23 02/12/23 Range/Units 15:43 15:43 15:43 WBC 3.16 L (4.8-10.8) K/ul RBC 3.47 L (4.20-5.40) M/uL Hgb 11.4 L (12.0-16.0) g/dl Hct 32.3 L (37.0-47.0) % MCV 93.1 (80.0-100.0) fL MCH 32.9 (25.0-34.0) pg MCHC 35.3 (32.0-36.0) g/dL RDW Std Deviation 45.1 (36.4-46.3) fL RDW Coeff of [place] 13.2 (11.5-14.5) % Plt Count 373 (130-400) K/uL MPV 10.2 (9.4-12.4) fL Immature Gran % (Auto) 0.0 % Neut % (Auto) 14.3 % Lymph % (Auto) 49.4 % [place] % (Auto) 34.8 % Eos % (Auto) 0.9 % Baso % (Auto) 0.6 % Neut # (Auto) 0.45 L* (1.40-6.50) K/uL Lymph # (Auto) 1.56 (1.20-3.40) K/uL [place] # (Auto) 1.10 H (0.11-0.59) K/uL Eos # (Auto) 0.03 (0.00-0.50) K/uL Baso # (Auto) 0.02 (0.00-0.20) K/uL Immature Gran # (Auto) 0.00 L (0.01-0.20) K/uL PT (9.0-12.0) Seconds INR (0.9-1.1) APTT (21.0-31.0) Seconds PTT Ratio Sodium 133 L (136-145) mmol/L Potassium 3.4 L (3.5-5.1) mmol/L Chloride 101 (98-107) mmol/L Carbon Dioxide 21 (21-32) mmol/L Anion Gap 11 (3-11) BUN 3 L (6-23) mg/dl Creatinine 0.51 L (0.6-1.2) mg/dl Est Cr Clr Drug Dosing Not Reportable Est GFR ( Amer) 146.4 ml/min Est GFR (Non-Af Amer) 126.3 ml/min BUN/Creatinine Ratio 5.9 L (10-20) Glucose 91 (70-99(Fasting)) mg/dl Lactate 3.0 H* (0.4-2.0) mmol/L Calcium 8.4 L (8.6-10.3) mg/dl Total Bilirubin 1.5 H (0.2-1.0) mg/dl AST 16 (13-39) U/L ALT 8 (7-52) U/L Alkaline Phosphatase 154 H (34-104) U/L Total Protein 5.7 L (6.0-8.3) gm/dl Albumin 3.1 L (3.4-5.0) gm/dl Globulin 2.6 (2.5-4.0) gm/dl Albumin/Globulin Ratio 1.2 (0.9-2) 02/12/23 02/12/23 Range/Units 15:43 17:55 WBC (4.8-10.8) K/ul RBC (4.20-5.40) M/uL Hgb (12.0-16.0) g/dl Hct (37.0-47.0) % MCV (80.0-100.0) fL MCH (25.0-34.0) pg MCHC (32.0-36.0) g/dL RDW Std Deviation (36.4-46.3) fL RDW Coeff of [place] (11.5-14.5) % Plt Count (130-400) K/uL MPV (9.4-12.4) fL Immature Gran % (Auto) % Neut % (Auto) % Lymph % (Auto) % [place] % (Auto) % Eos % (Auto) % Baso % (Auto) % Neut # (Auto) (1.40-6.50) K/uL Lymph # (Auto) (1.20-3.40) K/uL [place] # (Auto) (0.11-0.59) K/uL Eos # (Auto) (0.00-0.50) K/uL Baso # (Auto) (0.00-0.20) K/uL Immature Gran # (Auto) (0.01-0.20) K/uL PT 12.6 H (9.0-12.0) Seconds INR 1.2 H (0.9-1.1) APTT 108.7 H* (21.0-31.0) Seconds PTT Ratio 3.9 Sodium (136-145) mmol/L Potassium (3.5-5.1) mmol/L Chloride (98-107) mmol/L Carbon Dioxide (21-32) mmol/L Anion Gap (3-11) BUN (6-23) mg/dl Creatinine (0.6-1.2) mg/dl Est Cr Clr Drug Dosing Est GFR ( Amer) ml/min Est GFR (Non-Af Amer) ml/min BUN/Creatinine Ratio (10-20) Glucose (70-99(Fasting)) mg/dl Lactate 2.2 H* (0.4-2.0) mmol/L Calcium (8.6-10.3) mg/dl Total Bilirubin (0.2-1.0) mg/dl AST (13-39) U/L ALT (7-52) U/L Alkaline Phosphatase (34-104) U/L Total Protein (6.0-8.3) gm/dl Albumin (3.4-5.0) gm/dl Globulin (2.5-4.0) gm/dl Albumin/Globulin Ratio (0.9-2) Imaging Data Radiologist's Impression: Venous Doppler Study 02/12/23 15:16 RIGHT UPPER EXTREMITY VENOUS DOPPLER ULTRASOUND CLINICAL HISTORY: RIGHT ARM SWELLING, EVAL DVT COMPARISON STUDY: Right upper extremity venous Doppler ultrasound December 26, 2018. TECHNIQUE: Sonography of the venous system of the right upper extremity was performed. FINDINGS: The right internal jugular, subclavian, axillary, brachial, radial, ulnar, cephalic and basilic veins were patent. No venous thrombus was identified within the right upper extremity. Subcutaneous edema was incidentally noted. IMPRESSION: No venous thrombus within the right upper extremity. ACT 112: Negative or not required by law. Electronically signed by: Harman Marcus M.D. 02/12/2023 5:45 PM Breast Ultrasound 02/12/23 17:19 RIGHT BREAST ULTRASOUND CLINICAL HISTORY: Right periareolar erythema. Evaluate for abscess. COMPARISON STUDY: Chest CT August 18, 2015. TECHNIQUE: Sonography of the right periareolar region was performed to assess for abscess. FINDINGS: Right retroareolar edema was noted. No well-defined fluid collection was identified to suggest an abscess. This study was not performed to evaluate for mass however no mass was identified by sonography. IMPRESSION: 1. No right breast fluid collection to suggest abscess. 2. Edema within the right retroareolar breast. This may reflect cellulitis. Clinical follow-up to ensure resolution is recommended. If persistent symptoms, follow-up mammogram and diagnostic ultrasound are recommended. ACT 112: Negative or not required by law. Electronically signed by: Harman Marcus M.D. 02/12/2023 5:48 PM MDM Narrative 1709: The patient was evaluated in room Ultrasound room. A complete history and physical exam was performed Patient was seen during a time of extreme volume and extreme acuity in the emergency department. Nursing triage protocols were initiated and labs and imaging were conducted by protocol in the triage area. Ultrasound of the breast will be added to the patient's ultrasound of the upper extremity that is placed in the triage area. 1800: Vital signs stable. Labs show white blood cell count of 3.16. Hemoglobin 11.4. Neutrophil count 0.45. Lactic acid 3. Ultrasound shows no abscess but does show breast cellulitis. Patient will be admitted for breast cellulitis. Vancomycin given in the emergency department. [facility] Impression & Plan Cellulitis of right breast, Sepsis Discharge Plan Visit Data Chief Complaint: Swelling/Edema to Extremity Stated Complaint: REF BY , POSSIBLE BLOOD CLOT ED Provider: Jasper Valle Discharge Problem: Cellulitis of right breast, Sepsis Patient Disposition: Admitted As Inpatient Discharge Instructions Interventions: ED Discharge Assessment Last Done: 02/12/23 21:04
[2023-02-12 17:40] LABS: Basophils # (auto) 0.02 K/uL (0.00-0.20); Basophils % (auto) 0.6 %; Eosinophils # (auto) 0.03 K/uL (0.00-0.50); Eosinophils % (auto) 0.9 %; Lymphocytes # (auto) 1.56 K/uL (1.20-3.40); Lymphocytes % (auto) 49.4 %; Monocytes % (auto) 34.8 %; Neutrophils # (auto) 0.45 K/uL (1.40-6.50); Neutrophils % (auto) 14.3 %
--- NOTE | 2023-02-12 17:47 | Ultrasound Report ---
RIGHT UPPER EXTREMITY VENOUS DOPPLER ULTRASOUND CLINICAL HISTORY: RIGHT ARM SWELLING, EVAL DVT COMPARISON STUDY: Right upper extremity venous Doppler ultrasound December 26, 2018. TECHNIQUE: Sonography of the venous system of the right upper extremity was performed. FINDINGS: The right internal jugular, subclavian, axillary, brachial, radial, ulnar, cephalic and bas ilic veins were patent. No venous thrombus was identified within the right upper extremity. Subcutane ous edema was incidentally noted. IMPRESSION: No venous thrombus within the right upper extremity. ACT 112: Negative or not required by law. Electronically signed by: Harman Marcus M.D. 02/12/2023 5:45 PM
--- NOTE | 2023-02-12 17:49 | Ultrasound Report ---
RIGHT BREAST ULTRASOUND CLINICAL HISTORY: Right periareolar erythema. Evaluate for abscess. COMPARISON STUDY: Chest CT August 18, 2015. TECHNIQUE: Sonography of the right periareolar region was performed to assess for abscess. FINDINGS: Right retroareolar edema was noted. No well-defined fluid collection was identified to sugg est an abscess. This study was not performed to evaluate for mass however no mass was identified by s onography. IMPRESSION: 1. No right breast fluid collection to suggest abscess. 2. Edema within the right retroareolar breast. This may reflect cellulitis. Clinical follow-up to ens ure resolution is recommended. If persistent symptoms, follow-up mammogram and diagnostic ultrasound are recommended. ACT 112: Negative or not required by law. Electronically signed by: Harman Marcus M.D. 02/12/2023 5:48 PM
[2023-02-12] MEDS ORDERED: VANCOMYCIN HCL 1,750 MG in SODIUM CHLORIDE 0.9% 500 ML IV ONE (17:57)
[2023-02-12] MEDS ORDERED: SODIUM CHLORIDE 0.9% 2,000 ML IV ONE (17:57)
[2023-02-12] MEDS ORDERED: VANCOMYCIN CONSULT ACTIVE PRN (17:57)
[2023-02-12 18:03] LABS: Partial Thromboplastin Time 108.7 Seconds (21.0-31.0)
[2023-02-12] MEDS ORDERED: ONDANSETRON INJ 2 MG/ML 2 ML VIAL IV PRN (18:49)
[2023-02-12] MEDS ORDERED: MAGNESIUM HYDROXIDE SUSP 30 ML UDC PO PRN (18:49)
[2023-02-12] MEDS ORDERED: ALUMINUM/MAGNESIUM SUSP 30 ML UDC PO PRN (18:49)
--- NOTE | 2023-02-12 19:01 | History & Physical Report ---
Date of Service February 12, 2023 Assessment & Plan (1) Cellulitis: Plan Right breast cellulitis Severe sepsis POA: Secondary to above. Tachycardia, leukopenia, lactic acidosis at presentation. Patient sent from PCP office for right breast rash associated with RUE>LUE swelling Patient reports that symptoms going on for 4 to 5 days, denies any fever or chest pain. Venous Doppler negative for DVT in RUE Breast ultrasound suggestive of cellulitis, no fluid collection to suggest abscess. Patient is started on vancomycin, will continue. Clinical follow-up to ensure resolution of cellulitis. Status post IV fluid, downtrending lactate. We will continue gentle IV fluid given BUE swelling, also add thiamine. Other chronic medical conditions: MS, insomnia, depression, migraine continue with/resume home meds as and when able. DVT prophylaxis: Lovenox Full code History of Present Illness Chief Complaint: Right-sided chest erythema and swelling Primary Care Provider: Kimberly Figueroa MD 32-year-old lady with PMH of CHRISTOPHE, B12 deficiency, MS, hypoglycemia, chronic sinusitis, mild persistent asthma, mild rhinitis, migraine, major depressive disorder, insomnia, AUDELIA presented to the ED 02/12 at referral from PCP office for right breast rash. Patient reports her symptoms has been going on for last 4 to 5 days associated with bilateral upper extremity swelling rt > lt. Patient denies any fever or chills or chest pain or difficulty breathing or sore throat or cough or acute changes in her bowel or bladder habit. Patient does have poor appetite at baseline due to her esophageal stricture, She reports that her esophageal stenting is scheduled for March 19. Patient denies smoking/using tobacco, reports drinking 3-4 drinks a week, denies recreational drug use. Medications were reviewed with the patient. Plan of care discussed with the patient. Full code Allergies Allergy/AdvReac Type Severity Reaction Status Date / Time Cephalosporins Allergy Intermediate Hives Verified 02/12/23 18:31 clindamycin Allergy Intermediate HIVES/HEART Verified 02/12/23 18:31 BURN hydrocodone Allergy Intermediate Itching Verified 02/12/23 18:31 methocarbamol Allergy Intermediate ITCHY RASH Verified 02/12/23 18:31 Sulfa (Sulfonamide Allergy Intermediate Hives Verified 02/12/23 18:31 Antibiotics) cephalexin Allergy Unknown HAPPENED Verified 02/12/23 18:31 A SMALL CHILD Home Medications Medication Instructions Recorded Confirmed Type albuterol sulfate 2.5 mg/3 mL 2.5 mg inhalation Q4H PRN Wheezing 12/26/18 02/12/23 History (0.083 %) solution for nebulization albuterol sulfate 90 mcg/actuation 2 puff inhalation Q4H PRN Wheezing 12/26/18 02/12/23 History aerosol inhaler (ProAir HFA) cholecalciferol (vitamin D3) 125 5,000 unit PO QAM 12/26/18 02/12/23 History mcg (5,000 unit) tablet (Vitamin D3) cholecalciferol (vitamin D3) 25 1,000 unit PO QAM 12/26/18 02/12/23 History mcg (1,000 unit) capsule (Vitamin D3) cranberry 500 mg capsule 500 mg PO QAM 12/26/18 02/12/23 History cyanocobalamin (vitamin B-12) 1,000 mcg IM MONTHLY 12/26/18 02/12/23 History 1,000 mcg/mL injection solution hydroxyzine HCl 10 mg tablet 10 mg PO HS PRN Anxiety 12/26/18 02/12/23 History medroxyprogesterone 150 mg/mL 150 mg IM .EVERY 3 MONTHS 12/26/18 02/12/23 History intramuscular suspension ocrelizumab 30 mg/mL intravenous 300 mg IV .[id number] 12/26/18 02/12/23 History solution (Ocrevus) promethazine 25 mg tablet 25 mg PO Q6H PRN Nausea or Vomiting 12/26/18 02/12/23 History rizatriptan 10 mg tablet 10 mg PO DIRECTED PRN Headache 12/26/18 02/12/23 History topiramate 50 mg tablet 50 mg PO BID 12/26/18 02/12/23 History loratadine 10 mg tablet 10 mg PO QAM 07/31/22 02/12/23 History misoprostol 100 mcg tablet 100 mcg PO [facility] 07/31/22 02/12/23 History omeprazole 40 mg capsule,delayed 40 mg PO [facility] 07/31/22 02/12/23 History release pediatric multivitamin no.76 1 tab PO QAM 07/31/22 02/12/23 History (Flintstones Complete chewable tablet) sucralfate 100 mg/mL oral 1 g PO [facility] 07/31/22 02/12/23 History suspension venlafaxine 75 mg tablet 75 mg PO [facility] 07/31/22 02/12/23 History Past Med/Surg History Medical History Anxiety Depression Difficulty walking 02/04/23-- states was seen at [facility] ER twice in the past week for diffculty ambulating History of COVID-19 06/2020- cough; resolved History of deep vein thrombosis 2013- right arm History of multiple sclerosis Hx of peptic ulcer Hx of upper gastrointestinal hemorrhage 12/2021 Hypoglycemia states normally runs very low Iron deficiency anemia Migraine Obesity Patellofemoral dysfunction of right knee Postgastric surgery syndrome Surgical History History of esophagogastroduodenoscopy (EGD) History of gastric bypass History of insertion of tunneled central venous catheter (CVC) with port History of liver biopsy Hx of tonsillectomy Hx of tooth extraction Hx of wisdom tooth extraction S/P cholecystectomy S/P surgery on nasal septum Family History Other Diabetes Encounter for pre-operative examination Hypertension Social History Smoking Status: Never smoker Second Hand Exposure: No; Do You Dip or Chew Tobacco: No; Hx Alcohol Use: Yes Alcohol type: beer Alcohol type Comment: 6 beers approx every other day Hx Substance Use: No Preferred Language: Chinese Communication Ability: Effective Senior Advisory Required: No Beliefs That Will Affect Care: None marital status: Single Current Living Situation: Parent current occupational status: unemployed and disabled current occupation: disabled 2/2 to MS dx at 18 Feels Safe at Home: Yes Assistive Devices: Denture - Upper, Denture - Lower, Glasses and Wheelchair Review of Systems Review of Systems: Negative otherwise mentioned in HPI. Physical Exam Physical Exam: GENERAL: Alert and oriented x3. NAD, on RA. HEENT: No pallor, no icterus. Pupils equal, round and reactive to light. Oral mucosa moist. NECK: No JVD, no neck masses. HEART: S1 and S2 heard. Regular rate and rhythm. No murmur, no gallop. RESPIRATORY SYSTEM: Normal AP diameter. No accessory muscle use. No wheezing, no crackles. ABDOMEN: Soft, bowel sounds present, nontender, no distention. CENTRAL NERVOUS SYSTEM: No facial droop. Speech is clear. Obeys simple commands. Moves extremities. EXTREMITIES: No edema, no erythema seen. Rt breast erythema w/ minimal swelling and warmth. BUE swelling noted, no pitting edema appreciated. NO axillary LAD appreciated. Results & Data Results & Data Vital Signs (Past 12 Hours) Vital Signs Temp Pulse Pulse Resp BP BP Pulse Ox 02/12/23 17:56 107 H 13 138/87 100 02/12/23 17:05 108 H 20 143/105 H 02/12/23 15:13 36.7 C 105 H 20 129/81 97 O2 Del Method 02/12/23 17:56 Room Air 02/12/23 17:05 02/12/23 15:13 Room Air Code Status & VTE Plan VTE Prophylaxis Plan VTE Prophylaxis will be ordered: Yes
[2023-02-12] MEDS ORDERED: THIAMINE HCL 100 MG TAB PO ONE (19:15)
[2023-02-12] MEDS: MELATONIN 3 MG TAB PO SCH ×2 (20:52→22:04)
[2023-02-12] MEDS ORDERED: hydrOXYzine HCl 10 MG TAB PO PRN (21:05)
[2023-02-12] MEDS ORDERED: ALBUTEROL HFA 8 GM INHALER INH PRN (21:05)
[2023-02-12] MEDS ORDERED: RIZATRIPTAN BENZOATE 10 MG TAB PO PRN (21:05)
[2023-02-12] MEDS ORDERED: ALBUTEROL 0.083% NEBU SOLN 3 ML VIAL INH PRN (21:05)
[2023-02-12] MEDS ORDERED: diphenhydrAMINE 50 MG/ML VIAL IV STA (21:56)
[2023-02-12] MEDS: miSOPROStoL 100 MCG TAB PO SCH (22:50)
[2023-02-12] MEDS: VENLAFAXINE HCL 37.5 MG TAB PO SCH (22:50)
[2023-02-12] MEDS: TOPIRAMATE 50 MG TAB PO SCH (22:50)
[2023-02-12] MEDS: PANTOprazole 40 MG TAB PO SCH (22:50)
[2023-02-12] MEDS: SUCRALFATE 1 GM/10 ML UDC PO SCH (22:50)
[2023-02-13 05:16] LABS: Partial Thromboplastin Ratio 1.3; Partial Thromboplastin Time 36.5 Seconds (21.0-31.0)
[2023-02-13] MEDS ORDERED: VANCOMYCIN HCL 1,500 MG in SODIUM CHLORIDE 0.9% 500 ML IV SCH ×2 (06:00→10:00)
[2023-02-13] MEDS: MULTIVITAMIN CHEWABLE TAB PO SCH (08:27)
[2023-02-13] MEDS: CHOLECALCIFEROL 5,000 UNITS 125 MCG TAB PO SCH (08:27)
[2023-02-13] MEDS: PANTOprazole 40 MG TAB PO SCH ×2 (08:28→22:14)
[2023-02-13] MEDS: CHOLECALCIFEROL 1,000 UNITS 25 MCG TAB PO SCH (08:28)
[2023-02-13] MEDS: SUCRALFATE 1 GM/10 ML UDC PO SCH ×2 (08:29→22:14)
[2023-02-13] MEDS: VENLAFAXINE HCL 37.5 MG TAB PO SCH ×2 (08:29→22:14)
[2023-02-13] MEDS: TOPIRAMATE 50 MG TAB PO SCH ×2 (08:29→22:13)
[2023-02-13] MEDS: miSOPROStoL 100 MCG TAB PO SCH ×2 (08:29→22:13)
[2023-02-13] MEDS: THIAMINE HCL 100 MG TAB PO SCH (08:30)
[2023-02-13] MEDS: LORATADINE 10 MG TAB PO SCH (08:30)
[2023-02-13] MEDS: DAPTOmycin 300 MG in SYRINGE 0 ML IV SCH (10:58)
[2023-02-13] MEDS: ENOXAPARIN INJ 40 MG/0.4 ML SYR SQ SCH (10:58)
--- NOTE | 2023-02-13 16:41 | Hospitalist Progress Note ---
Date of Service February 13, 2023 Assessment & Plan (1) Cellulitis: Plan Right breast cellulitis Severe sepsis POA: Secondary to above. Tachycardia, leukopenia, lactic acidosis at presentation. Patient sent from PCP office for right breast rash associated with RUE>LUE swelling Patient reports that symptoms going on for 4 to 5 days, denies any fever or chest pain. Venous Doppler negative for DVT in RUE Breast ultrasound suggestive of cellulitis, no fluid collection to suggest abscess. Patient was started on vancomycin; patient reported redness on vancomycin. Changed to daptomycin. We will follow-up clinically; possible DC in a.m. if continues to showed impro vement. Other chronic medical conditions: MS, insomnia, depression, migraine continue with/resume home meds as and when able. DVT prophylaxis: Lovenox Full code Admission and Anticipated Discharge Date Admission Date: February 12, 2023 Subjective Patient seen and examined at bedside. Patient reports significant improvement on swelling. Review of Systems Review of Systems: All systems reviewed & are unremarkable except as noted in Subjective Physical Exam Physical Exam: GENERAL: Alert and oriented x3. NAD, on RA. HEENT: No pallor, no icterus. Pupils equal, round and reactive to light. Oral mucosa moist. NECK: No JVD, no neck masses. HEART: S1 and S2 heard. Regular rate and rhythm. No murmur, no gallop. RESPIRATORY SYSTEM: Normal AP diameter. No accessory muscle use. No wheezing, no crackles. ABDOMEN: Soft, bowel sounds present, nontender, no distention. CENTRAL NERVOUS SYSTEM: No facial droop. Speech is clear. Obeys simple commands. Moves extremities. EXTREMITIES: No edema, no erythema seen. Rt breast erythema w/ minimal swelling and warmth. BUE swelling noted, no pitting edema appreciated. NO axillary LAD appreciated. Results & Data Results & Data Vital Signs (Past 12 Hours) Vital Signs Pulse Resp BP Pulse Ox O2 Del Method 02/13/23 16:01 18 96 Room Air 02/13/23 13:30 88 17 02/13/23 13:20 74 14 100 02/13/23 13:10 73 12 100 02/13/23 13:00 94 H 19 100 02/13/23 12:50 75 20 94 02/13/23 12:40 87 25 H 69 L 02/13/23 12:30 92 H 20 96 02/13/23 12:20 14 96 10/11/23 12:10 83 16 100 02/13/23 12:00 98 H 20 100 02/13/23 11:50 78 14 100 02/13/23 11:40 76 14 100 02/13/23 11:30 73 19 100 02/13/23 11:20 87 14 99 02/13/23 11:10 132 H 17 94 02/13/23 11:00 90 22 95 02/13/23 10:57 137/101 H 02/13/23 10:57 91 H 19 100 02/13/23 10:50 81 20 92 02/13/23 10:40 81 17 100 02/13/23 10:30 84 16 100 02/13/23 10:20 84 21 99 02/13/23 10:10 92 H 17 02/13/23 10:00 85 13 97 02/13/23 09:50 105 H 22 99 02/13/23 09:40 83 18 100 02/13/23 09:30 90 15 95 02/13/23 09:20 115 H 19 100 02/13/23 09:10 20 100 02/13/23 09:00 106 H 17 100 02/13/23 08:50 87 20 100 02/13/23 08:40 89 16 100 02/13/23 08:30 87 14 100 02/13/23 08:20 83 20 100 02/13/23 08:10 82 16 100 02/13/23 08:00 83 17 100 02/13/23 07:50 85 14 100 02/13/23 07:40 94 H 16 98 02/13/23 07:30 86 16 98 02/13/23 07:20 88 17 98 02/13/23 07:10 89 19 99 02/13/23 07:00 91 H 13 97 02/13/23 06:50 88 16 98 02/13/23 06:40 93 H 16 99 02/13/23 06:30 89 16 98 02/13/23 06:20 93 H 18 98 02/13/23 06:10 92 H 6 L 98 02/13/23 06:00 95 H 19 99 02/13/23 05:50 92 H 17 98 02/13/23 05:40 91 H 16 99 02/13/23 05:30 93 H 19 97 02/13/23 05:20 91 H 19 99 02/13/23 05:10 88 17 98 02/13/23 05:00 92 H 0 L 98 02/13/23 04:50 91 H 14 99 02/13/23 04:40 90 16 99 02/13/23 05:23 91 H Laboratory Results Laboratory Results WBC 3.16 K/ul (4.8-10.8) L 02/12/23 15:43 RBC 3.47 M/uL (4.20-5.40) L 02/12/23 15:43 Hgb 11.4 g/dl (12.0-16.0) L 02/12/23 15:43 Hct 32.3 % (37.0-47.0) L 02/12/23 15:43 MCV 93.1 fL (80.0-100.0) 02/12/23 15:43 MCH 32.9 pg (25.0-34.0) 02/12/23 15:43 MCHC 35.3 g/dL (32.0-36.0) 02/12/23 15:43 RDW Std Deviation 45.1 fL (36.4-46.3) 02/12/23 15:43 RDW Coeff of [place] 13.2 % (11.5-14.5) 02/12/23 15:43 Plt Count 373 K/uL (130-400) 02/12/23 15:43 MPV 10.2 fL (9.4-12.4) 02/12/23 15:43 Immature Gran % (Auto) 0.0 % 02/12/23 15:43 Neut % (Auto) 14.3 % 02/12/23 15:43 Lymph % (Auto) 49.4 % 02/12/23 15:43 [place] % (Auto) 34.8 % 02/12/23 15:43 Eos % (Auto) 0.9 % 02/12/23 15:43 Baso % (Auto) 0.6 % 02/12/23 15:43 Neut # (Auto) 0.45 K/uL (1.40-6.50) L* 02/12/23 15:43 Lymph # (Auto) 1.56 K/uL (1.20-3.40) 02/12/23 15:43 [place] # (Auto) 1.10 K/uL (0.11-0.59) H 02/12/23 15:43 Eos # (Auto) 0.03 K/uL (0.00-0.50) 02/12/23 15:43 Baso # (Auto) 0.02 K/uL (0.00-0.20) 02/12/23 15:43 Immature Gran # (Auto) 0.00 K/uL (0.01-0.20) L 02/12/23 15:43 PT 12.6 Seconds (9.0-12.0) H 02/12/23 15:43 INR 1.2 (0.9-1.1) H 02/12/23 15:43 APTT 36.5 Seconds (21.0-31.0) H 02/13/23 04:25 PTT Ratio 1.3 02/13/23 04:25 Sodium 133 mmol/L (136-145) L 02/12/23 15:43 Potassium 3.4 mmol/L (3.5-5.1) L 02/12/23 15:43 Chloride 101 mmol/L (98-107) 02/12/23 15:43 Carbon Dioxide 21 mmol/L (21-32) 02/12/23 15:43 Anion Gap 11 (3-11) 02/12/23 15:43 BUN 3 mg/dl (6-23) L 02/12/23 15:43 Creatinine 0.51 mg/dl (0.6-1.2) L 02/12/23 15:43 Est Cr Clr Drug Dosing Not Reportable 02/12/23 15:43 Est GFR ( Amer) 146.4 ml/min 02/12/23 15:43 Est GFR (Non-Af Amer) 126.3 ml/min 02/12/23 15:43 BUN/Creatinine Ratio 5.9 (10-20) L 02/12/23 15:43 Glucose 91 mg/dl (70-99(Fasting)) 02/12/23 15:43 Lactate 2.2 mmol/L (0.4-2.0) H* 02/12/23 17:55 Calcium 8.4 mg/dl (8.6-10.3) L 02/12/23 15:43 Total Bilirubin 1.5 mg/dl (0.2-1.0) H 02/12/23 15:43 AST 16 U/L (13-39) 02/12/23 15:43 ALT 8 U/L (7-52) 02/12/23 15:43 Alkaline Phosphatase 154 U/L (34-104) H 02/12/23 15:43 Total Protein 5.7 gm/dl (6.0-8.3) L 02/12/23 15:43 Albumin 3.1 gm/dl (3.4-5.0) L 02/12/23 15:43 Globulin 2.6 gm/dl (2.5-4.0) 02/12/23 15:43 Albumin/Globulin Ratio 1.2 (0.9-2) 02/12/23 15:43 Impressions Venous Doppler Study 02/12/23 15:16 RIGHT UPPER EXTREMITY VENOUS DOPPLER ULTRASOUND CLINICAL HISTORY: RIGHT ARM SWELLING, EVAL DVT COMPARISON STUDY: Right upper extremity venous Doppler ultrasound December 26, 2018. TECHNIQUE: Sonography of the venous system of the right upper extremity was performed. FINDINGS: The right internal jugular, subclavian, axillary, brachial, radial, ulnar, cephalic and basilic veins were patent. No venous thrombus was identified within the right upper extremity. Subcutaneous edema was incidentally noted. IMPRESSION: No venous thrombus within the right upper extremity. ACT 112: Negative or not required by law. Electronically signed by: Harman Marcus M.D. 02/12/2023 5:45 PM Breast Ultrasound 02/12/23 17:19 RIGHT BREAST ULTRASOUND CLINICAL HISTORY: Right periareolar erythema. Evaluate for abscess. COMPARISON STUDY: Chest CT August 18, 2015. TECHNIQUE: Sonography of the right periareolar region was performed to assess for abscess. FINDINGS: Right retroareolar edema was noted. No well-defined fluid collection was identified to suggest an abscess. This study was not performed to evaluate for mass however no mass was identified by sonography. IMPRESSION: 1. No right breast fluid collection to suggest abscess. 2. Edema within the right retroareolar breast. This may reflect cellulitis. Clinical follow-up to ensure resolution is recommended. If persistent symptoms, follow-up mammogram and diagnostic ultrasound are recommended. ACT 112: Negative or not required by law. Electronically signed by: Harman Marcus M.D. 02/12/2023 5:48 PM
[2023-02-13] MEDS ORDERED: INFLUENZA VIRUS QUADRIVALENT VACCINE (IIV4) 0.5 ML SYR IM ONE (18:00)
[2023-02-13] MEDS: MELATONIN 3 MG TAB PO SCH (22:15)
[2023-02-14 06:24] LABS: Appearance Urine Cloudy (Clear); Bacteria Urine Automated Negative (Negative); Blood Urine Negative (Negative); Color Urine Dark Yellow; Epithelial Cell Urine Auto >30 /lpf (0-5); Glucose Urine UA Negative (Negative); Ketones Urine Trace (Negative); Leukocyte Esterase Urine 1+ (Negative); Nitrite Urine Negative (Negative); Protein Urine Trace (Negative); Specific Gravity Urine 1.017 (1.000-1.030); Urobilinogen Urine Negative (Negative)
[2023-02-14 06:27] LABS: Bilirubin Urine 1+ (Negative)
[2023-02-14] MEDS: CHOLECALCIFEROL 1,000 UNITS 25 MCG TAB PO SCH (07:54)
[2023-02-14] MEDS: CHOLECALCIFEROL 5,000 UNITS 125 MCG TAB PO SCH (07:55)
[2023-02-14] MEDS: MULTIVITAMIN CHEWABLE TAB PO SCH (07:55)
[2023-02-14] MEDS: LORATADINE 10 MG TAB PO SCH (07:56)
[2023-02-14] MEDS: ENOXAPARIN INJ 40 MG/0.4 ML SYR SQ SCH (07:56)
[2023-02-14] MEDS: THIAMINE HCL 100 MG TAB PO SCH (07:56)
[2023-02-14] MEDS: VENLAFAXINE HCL 37.5 MG TAB PO SCH ×2 (09:14→21:11)
[2023-02-14] MEDS: PANTOprazole 40 MG TAB PO SCH ×2 (09:14→21:10)
[2023-02-14] MEDS: SUCRALFATE 1 GM/10 ML UDC PO SCH ×2 (09:14→21:11)
[2023-02-14] MEDS: TOPIRAMATE 50 MG TAB PO SCH ×2 (09:14→21:12)
[2023-02-14] MEDS: miSOPROStoL 100 MCG TAB PO SCH ×2 (09:14→21:10)
[2023-02-14 09:20] LABS: Hematocrit (blood only) 28.3 % (37.0-47.0); Hemoglobin 9.8 g/dl (12.0-16.0); Mean Corpuscular Hemoglobin 33.6 pg (25.0-34.0); Mean Corpuscular Hgb Conc 34.6 g/dL (32.0-36.0); Mean Corpuscular Volume 96.9 fL (80.0-100.0); Mean Platelet Volume 9.9 fL (9.4-12.4); Platelet Count 230 K/uL (130-400); RDW Standard Deviation 46.1 fL (36.4-46.3); Red Blood Count 2.92 M/uL (4.20-5.40); White Blood Count 2.31 K/ul (4.8-10.8)
[2023-02-14 09:36] LABS: Basophils # (auto) 0.01 K/uL (0.00-0.20); Basophils % (auto) 0.4 %; Eosinophils # (auto) 0.02 K/uL (0.00-0.50); Eosinophils % (auto) 0.9 %; Lymphocytes # (auto) 1.03 K/uL (1.20-3.40); Lymphocytes % (auto) 44.6 %; Neutrophils # (auto) 0.65 K/uL (1.40-6.50); Neutrophils % (auto) 28.1 %
[2023-02-14 09:37] LABS: BUN Creatinine Ratio 6.2 (10-20); Calcium 7.9 mg/dl (8.6-10.3); Creatinine Clr Calc Pharmacy 144.1 ml/min; Est GFR (African American) 135.2 ml/min; Est GFR (Non-African American) 116.7 ml/min; Potassium 3.2 mmol/L (3.5-5.1)
--- NOTE | 2023-02-14 10:28 | Discharge Summary ---
Date of Service February 14, 2023 Admission HPI Per Admitting Provider 32-year-old lady with PMH of CHRISTOPHE, B12 deficiency, MS, hypoglycemia, chronic sinusitis, mild persistent asthma, mild rhinitis, migraine, major depressive disorder, insomnia, AUDELIA presented to the ED 02/12 at referral from PCP office for right breast rash. Patient reports her symptoms has been going on for last 4 to 5 days associated with bilateral upper extremity swelling rt > lt. Patient denies any fever or chills or chest pain or difficulty breathing or sore throat or cough or acute changes in her bowel or bladder habit. Patient does have poor appetite at baseline due to her esophageal stricture, She reports that her esophageal stenting is scheduled for March 19. Patient denies smoking/using tobacco, reports drinking 3-4 drinks a week, denies recreational drug use. Medications were reviewed with the patient. Plan of care discussed with the patient. Full code Admission Exam Per Admitting Provider GENERAL: Alert and oriented x3. NAD, on RA. HEENT: No pallor, no icterus. Pupils equal, round and reactive to light. Oral mucosa moist. NECK: No JVD, no neck masses. HEART: S1 and S2 heard. Regular rate and rhythm. No murmur, no gallop. RESPIRATORY SYSTEM: Normal AP diameter. No accessory muscle use. No wheezing, no crackles. ABDOMEN: Soft, bowel sounds present, nontender, no distention. CENTRAL NERVOUS SYSTEM: No facial droop. Speech is clear. Obeys simple commands. Moves extremities. EXTREMITIES: No edema, no erythema seen. Rt breast erythema w/ minimal swelling and warmth. BUE swelling noted, no p itting edema appreciated. NO axillary LAD appreciated. Principal Diagnosis Right breast cellulitis Discharge Exam GENERAL: Alert and oriented x3. NAD, on RA. HEENT: No pallor, no icterus. Pupils equal, round and reactive to light. Oral mucosa moist. NECK: No JVD, no neck masses. HEART: S1 and S2 heard. Regular rate and rhythm. No murmur, no gallop. RESPIRATORY SYSTEM: Normal AP diameter. No accessory muscle use. No wheezing, no crackles. ABDOMEN: Soft, bowel sounds present, nontender, no distention. CENTRAL NERVOUS SYSTEM: No facial droop. Speech is clear. Obeys simple commands. Moves extremities. EXTREMITIES: No edema, no erythema seen. Significant improvement in the erythema and swelling on arm/breast. Discharge Data Allergies Allergy/AdvReac Type Severity Reaction Status Date / Time Cephalosporins Allergy Intermediate Hives Verified 02/12/23 18:31 clindamycin Allergy Intermediate HIVES/HEART Verified 02/12/23 18:31 BURN hydrocodone Allergy Intermediate Itching Verified 02/12/23 18:31 methocarbamol Allergy Intermediate ITCHY RASH Verified 02/12/23 18:31 Sulfa (Sulfonamide Allergy Intermediate Hives Verified 02/12/23 18:31 Antibiotics) cephalexin Allergy Unknown HAPPENED Verified 02/12/23 18:31 A SMALL CHILD Consultations 02/12/23 17:58 ED Decision to Admit Stat Ordered Studies 02/12/23 15:16 US venous doppler UE RT Stat 02/12/23 17:19 US breast RT limited Stat Hospital Course (1) Cellulitis: Plan Right breast cellulitis Severe sepsis POA: Secondary to above. Tachycardia, leukopenia, lactic acidosis at presentation. Patient sent from PCP office for right breast rash associated with RUE>LUE swelling Patient reports that symptoms going on for 4 to 5 days, denies any fever or chest pain. Venous Doppler negative for DVT in RUE Breast ultrasound suggestive of cellulitis, no fluid collection to suggest abscess. During the hospitalization, patient was treated with IV antibiotics (initially with vancomycin and daptomycin); showed significant improvement. Patient discharged home on 4 more days of doxycycline. Patient to follow-up with PCP after discharge. Total Time Total Time Spent Total Time Spent (In Minutes): 45 Total Time Includes: Examination of the Patient, Discharge Planning, Medication Reconciliation, Communication With Other Providers and Other Discharge Plan Discharge Items Patient Disposition: Home - Self-Care Reason For Visit: CELLULITIS Discharge Diagnosis: Right Breast cellulitis Activity: Resume your previous activity Non-emergency contact: Primary Care Provider Call non-emergency contact if: you have any medication questions and your symptoms worsen Follow-up/Referrals: Kimberly Figueroa MD [Primary Care Provider] - Diet: Regular Addtl Attending Provider Instructions: You were admitted to the hospital due to cellulitis which is the infection of the skin. You were treated with IV antibiotics during the hospitalization. You are prescribed doxycycline 100 mg twice daily for 4 more days to complete the course. Please follow-up with PCP. An appointment will be set up for you. Pending Studies at Discharge: No Stand-Alone Forms: My [facility], Smoking Cessation Medications and DC Order Prescriptions: New doxycycline hyclate 100 mg capsule 100 mg PO BID 4 Days Qty: 8 0RF Continued cyanocobalamin (vitamin B-12) 1,000 mcg/mL Solution 1,000 mcg IM MONTHLY hydroxyzine HCl 10 mg tablet 10 mg PO HS PRN (Reason: Anxiety) medroxyprogesterone 150 mg/mL suspension 150 mg IM .EVERY 3 MONTHS cranberry 500 mg Capsule 500 mg PO QAM cholecalciferol (vitamin D3) [Vitamin D3] 1,000 unit Capsule 1,000 unit PO QAM Rx Instructions: TOTAL DOSE 6,000 UNITS--TAKES WITH 5,000 UNIT CAP. topiramate 50 mg tablet 50 mg PO BID cholecalciferol (vitamin D3) [Vitamin D3] 5,000 unit Tablet 5,000 unit PO QAM Rx Instructions: TOTAL DOSE 6,000 UNITS--TAKES WITH 1,000 UNIT CAP. rizatriptan 10 mg tablet 10 mg PO DIRECTED PRN (Reason: Headache) Rx Instructions: TAKE ONE TABLET AT ONSET OF HEADACHE MAY REPEAT DOSE IN 2 HOURS IF NEEDED Ocrevus 30 mg/mL Solution 300 mg IV .[id number] albuterol sulfate 2.5 mg /3 mL (0.083 %) Solution For Nebulization 2.5 mg INHALATION Q4H PRN (Reason: Wheezing) albuterol sulfate [ProAir HFA] 90 mcg/actuation Hfa Aerosol Inhaler 2 puff INHALATION Q4H PRN (Reason: Wheezing) promethazine 25 mg Tablet 25 mg PO Q6H PRN (Reason: Nausea or Vomiting) venlafaxine 75 mg tablet 75 mg PO [facility] Rx Instructions: PER EXT MED HX--75 MG BID. omeprazole 40 mg capsule,delayed release(DR/EC) 40 mg PO [facility] misoprostol 100 mcg tablet 100 mcg PO [facility] sucralfate 100 mg/mL suspension 1 g PO [facility] loratadine 10 mg Tablet 10 mg PO QAM Flintstones Complete Tablet,Chewable 1 tab PO QAM Discharge Orders: Discharge Order (Routine); Ordered 02/14/23 Ordered By: Lazaurs Floerz Admission Data Admit Date/Time: 02/12/23 18:49 Attending Provider: Lazarus Florez Admit Provider: Rony Wall Primary Care Provider: Kimberly Figueroa Other Providers: Stephanie Box ; Rony Wall
[2023-02-14] MEDS: DAPTOmycin 300 MG in SYRINGE 0 ML IV SCH (10:29)
--- NOTE | 2023-02-14 12:34 | Hospitalist Progress Note ---
Date of Service February 14, 2023 Assessment & Plan (1) Cellulitis: Plan Right breast cellulitis Severe sepsis POA:Secondary to above. Tachycardia, leukopenia, lactic acidosis at presentation. Patient sent from PCP office for right breast rash associated with RUE>LUE swelling Patient reports that symptoms going on for 4 to 5 days, denies any fever or chest pain. Venous Doppler negative for DVT in RUE Breast ultrasound suggestive of cellulitis, no fluid collection to suggest abscess. Patient was started on vancomycin; patient reported redness on vancomycin. Changed to daptomycin. Continue for now We will follow-up clinically; possible DC in a.m. if continues to showed improvement. Plan to obtain left upper extremity Doppler to rule out DVT Other chronic medical conditions:MS, insomnia, depression, migraine continue with/resume home meds as and when able. DVT prophylaxis: Lovenox Full code Please note the above document was generated using voice recognition software. It may contain grammatical, syntax or spelling errors. Any formal questions or concerns about the content, text or information contained within the body of this dictation should be directly addressed to the provider for clarification Admission and Anticipated Discharge Date Admission Date: February 12, 2023 Subjective Initial plan was to discharge patient home on oral antibiotics. However, patient's mother concern regarding left upper arm swelling. Will obtain venous duplex Review of Systems Review of Systems: All systems reviewed & are unremarkable except as noted in Subjective Physical Exam Physical Exam: GENERAL: Alert and oriented x3. NAD, on RA. HEENT: No pallor, no icterus. Pupils equal, round and reactive to light. Oral mucosa moist. NECK: No JVD, no neck masses. HEART: S1 and S2 heard. Regular rate and rhythm. No murmur, no gallop. RESPIRATORY SYSTEM: Normal AP diameter. No accessory muscle use. No wheezing, no crackles. ABDOMEN: Soft, bowel sounds present, nontender, no distention. CENTRAL NERVOUS SYSTEM: No facial droop. Speech is clear. Obeys simple commands. Moves extremities. EXTREMITIES: No edema, no erythema seen. Significant improvement in the erythema and swelling on arm/breast. Still swelling present on left arm. Results & Data Results & Data Vital Signs (Past 12 Hours) Vital Signs Temp Pulse Pulse Resp BP Pulse Ox O2 Del Method 02/14/23 10:42 36.8 C 93 H 18 124/85 100 02/14/23 08:11 36.8 C 93 H 18 124/85 100 Room Air 02/14/23 07:15 76 Laboratory Results Laboratory Results WBC 2.31 K/ul (4.8-10.8) L 02/14/23 08:56 RBC 2.92 M/uL (4.20-5.40) L 02/14/23 08:56 Hgb 9.8 g/dl (12.0-16.0) L 02/14/23 08:56 Hct 28.3 % (37.0-47.0) L 02/14/23 08:56 MCV 96.9 fL (80.0-100.0) 02/14/23 08:56 MCH 33.6 pg (25.0-34.0) 02/14/23 08:56 MCHC 34.6 g/dL (32.0-36.0) 02/14/23 08:56 RDW Std Deviation 46.1 fL (36.4-46.3) 02/14/23 08:56 RDW Coeff of [place] 13.0 % (11.5-14.5) 02/14/23 08:56 Plt Count 230 K/uL (130-400) 02/14/23 08:56 MPV 9.9 fL (9.4-12.4) 02/14/23 08:56 Immature Gran % (Auto) 0.0 % 02/14/23 08:56 Neut % (Auto) 28.1 % 02/14/23 08:56 Lymph % (Auto) 44.6 % 02/14/23 08:56 [place] % (Auto) 26.0 % 02/14/23 08:56 Eos % (Auto) 0.9 % 02/14/23 08:56 Baso % (Auto) 0.4 % 02/14/23 08:56 Neut # (Auto) 0.65 K/uL (1.40-6.50) L* 02/14/23 08:56 Lymph # (Auto) 1.03 K/uL (1.20-3.40) L 02/14/23 08:56 [place] # (Auto) 0.60 K/uL (0.11-0.59) H 02/14/23 08:56 Eos # (Auto) 0.02 K/uL (0.00-0.50) 02/14/23 08:56 Baso # (Auto) 0.01 K/uL (0.00-0.20) 02/14/23 08:56 Immature Gran # (Auto) 0.00 K/uL (0.01-0.20) L 02/14/23 08:56 PT 12.6 Seconds (9.0-12.0) H 02/12/23 15:43 INR 1.2 (0.9-1.1) H 02/12/23 15:43 APTT 36.5 Seconds (21.0-31.0) H 02/13/23 04:25 PTT Ratio 1.3 02/13/23 04:25 Sodium 133 mmol/L (136-145) L 02/14/23 08:56 Potassium 3.2 mmol/L (3.5-5.1) L 02/14/23 08:56 Chloride 105 mmol/L (98-107) 02/14/23 08:56 Carbon Dioxide 23 mmol/L (21-32) 02/14/23 08:56 Anion Gap 5 (3-11) 02/14/23 08:56 BUN 4 mg/dl (6-23) L 02/14/23 08:56 Creatinine 0.65 mg/dl (0.6-1.2) 02/14/23 08:56 Est Cr Clr Drug Dosing 144.1 ml/min 02/14/23 08:56 Est GFR ( Amer) 135.2 ml/min 02/14/23 08:56 Est GFR (Non-Af Amer) 116.7 ml/min 02/14/23 08:56 BUN/Creatinine Ratio 6.2 (10-20) L 02/14/23 08:56 Glucose 87 mg/dl (70-99(Fasting)) 02/14/23 08:56 Lactate 2.2 mmol/L (0.4-2.0) H* 02/12/23 17:55 Calcium 7.9 mg/dl (8.6-10.3) L 02/14/23 08:56 Total Bilirubin 1.5 mg/dl (0.2-1.0) H 02/12/23 15:43 AST 16 U/L (13-39) 02/12/23 15:43 ALT 8 U/L (7-52) 02/12/23 15:43 Alkaline Phosphatase 154 U/L (34-104) H 02/12/23 15:43 Total Protein 5.7 gm/dl (6.0-8.3) L 02/12/23 15:43 Albumin 3.1 gm/dl (3.4-5.0) L 02/12/23 15:43 Globulin 2.6 gm/dl (2.5-4.0) 02/12/23 15:43 Albumin/Globulin Ratio 1.2 (0.9-2) 02/12/23 15:43 Urine Color Dark Yellow 02/14/23 05:15 Urine Appearance Cloudy (Clear) A 02/14/23 05:15 Urine pH 6.0 (4.5-7.5) 02/14/23 05:15 Ur Specific [place] 1.017 (1.000-1.030) 02/14/23 05:15 Urine Protein Trace (Negative) H 02/14/23 05:15 Urine Glucose (UA) Negative (Negative) 02/14/23 05:15 Urine Ketones Trace (Negative) H 02/14/23 05:15 Urine Blood Negative (Negative) 02/14/23 05:15 Urine Nitrite Negative (Negative) 02/14/23 05:15 Urine Bilirubin 1+ (Negative) H 02/14/23 05:15 Urine Urobilinogen Negative (Negative) 02/14/23 05:15 Ur Leukocyte Esterase 1+ (Negative) H 02/14/23 05:15 Urine WBC (Auto) 5-10 /hpf (0-5) H 02/14/23 05:15 Urine RBC (Auto) 5-10 /hpf (0-4) H 02/14/23 05:15 U Hyaline Cast (Auto) 5-10 /lpf (0-5) H 02/14/23 05:15 U Epithel Cells (Auto) >30 /lpf (0-5) H 02/14/23 05:15 Urine Bacteria (Auto) Negative (Negative) 02/14/23 05:15 Impressions Venous Doppler Study 02/12/23 15:16 RIGHT UPPER EXTREMITY VENOUS DOPPLER ULTRASOUND CLINICAL HISTORY: RIGHT ARM SWELLING, EVAL DVT COMPARISON STUDY: Right upper extremity venous Doppler ultrasound December 26, 2018. TECHNIQUE: Sonography of the venous system of the right upper extremity was performed. FINDINGS: The right internal jugular, subclavian, axillary, brachial, radial, ulnar, cephalic and basilic veins were patent. No venous thrombus was identified within the right upper extremity. Subcutaneous edema was incidentally noted. IMPRESSION: No venous thrombus within the right upper extremity. ACT 112: Negative or not required by law. Electronically signed by: Harman Marcus M.D. 02/12/2023 5:45 PM Breast Ultrasound 02/12/23 17:19 RIGHT BREAST ULTRASOUND CLINICAL HISTORY: Right periareolar erythema. Evaluate for abscess. COMPARISON STUDY: Chest CT August 18, 2015. TECHNIQUE: Sonography of the right periareolar region was performed to assess for abscess. FINDINGS: Right retroareolar edema was noted. No well-defined fluid collection was identified to suggest an abscess. This study was not performed to evaluate for mass however no mass was identified by sonography. IMPRESSION: 1. No right breast fluid collection to suggest abscess. 2. Edema within the right retroareolar breast. This may reflect cellulitis. Clinical follow-up to ensure resolution is recommended. If persistent symptoms, follow-up mammogram and diagnostic ultrasound are recommended. ACT 112: Negative or not required by law. Electronically signed by: Harman Marcus M.D. 02/12/2023 5:48 PM
--- NOTE | 2023-02-14 14:16 | Ultrasound Report ---
ULTRASOUND LEFT UPPER EXTREMITY VENOUS CLINICAL HISTORY: Left arm swelling. COMPARISON STUDY: No priors. TECHNIQUE: Real-time, grayscale, and color Doppler sonography of the deep veins of the left upper ext remity is performed. Compression and augmentation were utilized. FINDINGS: There is no sonographic evidence of deep venous thrombosis identified in the left upper ext remity. The left internal jugular, axillary, and brachial veins are patent and normally compressible. Normal venous waveforms and augmentation are seen within the left subclavian vein. The cephalic and basilic veins are clear. The visualized radial and ulnar veins are patent. Soft tissue edema is noted in the left arm. IMPRESSION: There is no sonographic evidence of deep venous thrombosis identified in the left upper e xtremity. ACT 112: Negative or not required by law. Electronically signed by: Don Laird M.D. 02/14/2023 2:15 PM
[2023-02-14] MEDS: MELATONIN 3 MG TAB PO SCH (21:10)
[2023-02-15 02:40] LABS: A calco-baum cmplx NotReported Not Detected (NotDetected); Bact fragilis Not Reported Not Detected (NotDetected); C auris Not Reported Not Detected (NotDetected); Calbicans Not Reported Not Detected (NotDetected); Candida glabrata Not Reported Not Detected (NotDetected); Candida krusei Not Reported Not Detected (NotDetected); Cneoformans/gatti Not Reported Not Detected (NotDetected); Cparapsilosis Not Reported Not Detected (NotDetected); E cloacae compx Not Reported Not Detected (NotDetected); Efaecalis Not Reported Not Detected (NotDetected); Efaecium Not Reported Not Detected (NotDetected); Enterobacterales Not Reported Not Detected (NotDetected); Escherichia coli Not Reported Not Detected (NotDetected); H influenzae Not Reported Not Detected (NotDetected); K aerogenes Not Reported Not Detected (NotDetected); Koxytoca Not Reported Not Detected (NotDetected); Kpneumoniae grp Not Reported Not Detected (NotDetected); Lmonocyt Not Reported Not Detected (NotDetected); N meningitidis Not Reported Not Detected (NotDetected); P aeruginosa Not Reported Not Detected (NotDetected); Proteus spp Not Reported Not Detected (NotDetected); Salmonella spp Not Reported Not Detected (NotDetected); Smarcescens Not Reported Not Detected (NotDetected); Staph lugdunensis Not Reported Not Detected (NotDetected); Staph spp. Not Reported Not Detected (NotDetected); Staphaureus Not Reported Not Detected (NotDetected); Staphepi Not Reported Not Detected (NotDetected); Stenmaltophilia Not Reported Not Detected (NotDetected); Strep agal(GrpB) Not Reported Not Detected (NotDetected); Strep pneum Not Reported Not Detected (NotDetected); Strep pyog (GrpA) Not Reported Not Detected (NotDetected); Strep spp Not Reported Not Detected (NotDetected)
[2023-02-15 09:01] LABS: Hematocrit (blood only) 28.5 % (37.0-47.0); Hemoglobin 10.1 g/dl (12.0-16.0); Mean Corpuscular Hemoglobin 33.6 pg (25.0-34.0); Mean Corpuscular Hgb Conc 35.4 g/dL (32.0-36.0); Mean Corpuscular Volume 94.7 fL (80.0-100.0); Mean Platelet Volume 10.4 fL (9.4-12.4); Platelet Count 249 K/uL (130-400); RDW Coefficient of Variation 12.8 % (11.5-14.5); RDW Standard Deviation 44.3 fL (36.4-46.3); Red Blood Count 3.01 M/uL (4.20-5.40)
[2023-02-15 09:24] LABS: Basophils # (auto) 0.02 K/uL (0.00-0.20); Basophils % (auto) 0.7 %; Eosinophils # (auto) 0.01 K/uL (0.00-0.50); Eosinophils % (auto) 0.4 %; Immature Granulocytes # (auto) 0.02 K/uL (0.01-0.20); Immature Granulocytes % (auto) 0.7 %; Lymphocytes # (auto) 0.99 K/uL (1.20-3.40); Lymphocytes % (auto) 36.7 %; Monocytes # (auto) 0.71 K/uL (0.11-0.59); Monocytes % (auto) 26.3 %; Neutrophils # (auto) 0.95 K/uL (1.40-6.50); Neutrophils % (auto) 35.2 %
[2023-02-15 09:29] LABS: BUN Creatinine Ratio 7.2 (10-20); Calcium 7.9 mg/dl (8.6-10.3); Creatinine Clr Calc Pharmacy 135.8 ml/min; Est GFR (African American) 132.6 ml/min; Est GFR (Non-African American) 114.4 ml/min; Potassium 3.1 mmol/L (3.5-5.1)
[2023-02-15] MEDS ORDERED: POTASSIUM CHLORIDE CRTAB 20 MEQ TABCR PO STA (09:31)
[2023-02-15] MEDS: miSOPROStoL 100 MCG TAB PO SCH ×2 (09:33→21:08)
[2023-02-15] MEDS: PANTOprazole 40 MG TAB PO SCH ×2 (09:33→21:08)
[2023-02-15] MEDS: LORATADINE 10 MG TAB PO SCH (09:34)
[2023-02-15] MEDS: MULTIVITAMIN CHEWABLE TAB PO SCH (09:34)
[2023-02-15] MEDS: TOPIRAMATE 50 MG TAB PO SCH ×2 (09:34→21:08)
[2023-02-15] MEDS: THIAMINE HCL 100 MG TAB PO SCH (09:34)
[2023-02-15] MEDS: CHOLECALCIFEROL 5,000 UNITS 125 MCG TAB PO SCH (09:35)
[2023-02-15] MEDS: CHOLECALCIFEROL 1,000 UNITS 25 MCG TAB PO SCH (09:35)
[2023-02-15] MEDS: SUCRALFATE 1 GM/10 ML UDC PO SCH ×2 (09:36→21:08)
[2023-02-15] MEDS: VENLAFAXINE HCL 37.5 MG TAB PO SCH ×2 (09:36→21:08)
[2023-02-15] MEDS: ENOXAPARIN INJ 40 MG/0.4 ML SYR SQ SCH (09:40)
[2023-02-15] MEDS: DAPTOmycin 300 MG in SYRINGE 0 ML IV SCH (10:10)
[2023-02-15] MEDS ORDERED: HEPARIN 100 UNIT/ML 5ML FLUSH FLUSH PRN (10:19)
--- NOTE | 2023-02-15 12:42 | Hospitalist Progress Note ---
Date of Service February 15, 2023 Assessment & Plan (1) Cellulitis: Plan Right breast cellulitis Severe sepsis POA:Secondary to above. Tachycardia, leukopenia, lactic acidosis at presentation. Gram-positive cocci in cluster on blood culture Patient sent from PCP office for right breast rash associated with RUE>LUE swelling Patient reports that symptoms going on for 4 to 5 days, denies any fever or chest pain. Venous Doppler negative for DVT in RUE and left upper limb Breast ultrasound suggestive of cellulitis, no fluid collection to suggest abscess. Blood culture from February 12gram-positive cocci in clusters in 1 out of 4 bottles. Discussed with microbiology lab; since PCR is negative-less likely to be Staph aureus. Awaiting identification Repeat blood culture sent today CTA chest since patient continues to have left arm swelling to rule out vascular occlusion Continue on daptomycin for the cellulitis and positive blood culture Monitor for fever. Hyponatremia; chronic. Stable. Continue to monitor daily BMP Hypokalemia-repleted Leukopeniahistory of leukopenia dating back to 2021; continue to monitor CBC daily. Other chronic medical conditions: MS-on Ocrevus Migraine-on topiramate,rizatriptan prn. Continue Mood disorder- continue venlafaxine. Discussed with patient's mother at bedside. Answered questions/queries. DVT prophylaxis: Lovenox Full code Time spent evaluating patient, direct bedside care, chart review, placing orders, interpretation of diagnostic studies, discussion with consultants, patient, and family members, as well as other required patient management activities is 60 minutes Please note the above document was generated using voice recognition software. It may contain grammatical, syntax or spelling errors. Any formal questions or concerns about the content, text or information contained within the body of this dictation should be directly addressed to the provider for clarification Admission and Anticipated Discharge Date Admission Date: February 12, 2023 Subjective Patient seen and examined at bedside. She is comfortably sitting up on the chair; not in distress. Still continues to have left upper arm swelling. Review of Systems Review of Systems: All systems reviewed & are unremarkable except as noted in Subjective Physical Exam Physical Exam: GENERAL: Alert and oriented x3. NAD, on RA. HEENT: No pallor, no icterus. Pupils equal, round and reactive to light. Oral mucosa moist. NECK: No JVD, no neck masses. HEART: S1 and S2 heard. Regular rate and rhythm. No murmur, no gallop. RESPIRATORY SYSTEM: Normal AP diameter. No accessory muscle use. No wheezing, no crackles. ABDOMEN: Soft, bowel sounds present, nontender, no distention. CENTRAL NERVOUS SYSTEM: No facial droop. Speech is clear. Obeys simple commands. Moves extremities. EXTREMITIES: No edema, no erythema seen. Significant improvement in the erythema and swelling on arm/breast. Still swelling present on left arm. Results & Data Results & Data Vital Signs (Past 12 Hours) Vital Signs Temp Pulse Pulse Resp BP Pulse Ox O2 Del Method 02/15/23 12:03 36.7 C 73 18 126/89 96 Room Air 02/15/23 08:40 84 02/15/23 10:24 36.7 C 83 18 121/82 100 02/15/23 08:17 36.7 C 83 18 121/82 100 Room Air 02/15/23 02:57 36.5 C 104 H 18 131/88 93 Room Air Laboratory Results Laboratory Results WBC 2.70 K/ul (4.8-10.8) L 02/15/23 07:58 RBC 3.01 M/uL (4.20-5.40) L 02/15/23 07:58 Hgb 10.1 g/dl (12.0-16.0) L 02/15/23 07:58 Hct 28.5 % (37.0-47.0) L 02/15/23 07:58 MCV 94.7 fL (80.0-100.0) 02/15/23 07:58 MCH 33.6 pg (25.0-34.0) 02/15/23 07:58 MCHC 35.4 g/dL (32.0-36.0) 02/15/23 07:58 RDW Std Deviation 44.3 fL (36.4-46.3) 02/15/23 07:58 RDW Coeff of [place] 12.8 % (11.5-14.5) 02/15/23 07:58 Plt Count 249 K/uL (130-400) 02/15/23 07:58 MPV 10.4 fL (9.4-12.4) 02/15/23 07:58 Immature Gran % (Auto) 0.7 % 02/15/23 07:58 Neut % (Auto) 35.2 % 02/15/23 07:58 Lymph % (Auto) 36.7 % 02/15/23 07:58 [place] % (Auto) 26.3 % 02/15/23 07:58 Eos % (Auto) 0.4 % 02/15/23 07:58 Baso % (Auto) 0.7 % 02/15/23 07:58 Neut # (Auto) 0.95 K/uL (1.40-6.50) L* 02/15/23 07:58 Lymph # (Auto) 0.99 K/uL (1.20-3.40) L 02/15/23 07:58 [place] # (Auto) 0.71 K/uL (0.11-0.59) H 02/15/23 07:58 Eos # (Auto) 0.01 K/uL (0.00-0.50) 02/15/23 07:58 Baso # (Auto) 0.02 K/uL (0.00-0.20) 02/15/23 07:58 Immature Gran # (Auto) 0.02 K/uL (0.01-0.20) 02/15/23 07:58 PT 12.6 Seconds (9.0-12.0) H 02/12/23 15:43 INR 1.2 (0.9-1.1) H 02/12/23 15:43 APTT 36.5 Seconds (21.0-31.0) H 02/13/23 04:25 PTT Ratio 1.3 02/13/23 04:25 Sodium 133 mmol/L (136-145) L 02/15/23 07:58 Potassium 3.1 mmol/L (3.5-5.1) L 02/15/23 07:58 Chloride 104 mmol/L (98-107) 02/15/23 07:58 Carbon Dioxide 24 mmol/L (21-32) 02/15/23 07:58 Anion Gap 5 (3-11) 02/15/23 07:58 BUN 5 mg/dl (6-23) L 02/15/23 07:58 Creatinine 0.69 mg/dl (0.6-1.2) 02/15/23 07:58 Est Cr Clr Drug Dosing 135.8 ml/min 02/15/23 07:58 Est GFR ( Amer) 132.6 ml/min 02/15/23 07:58 Est GFR (Non-Af Amer) 114.4 ml/min 02/15/23 07:58 BUN/Creatinine Ratio 7.2 (10-20) L 02/15/23 07:58 Glucose 90 mg/dl (70-99(Fasting)) 02/15/23 07:58 Lactate 2.2 mmol/L (0.4-2.0) H* 02/12/23 17:55 Calcium 7.9 mg/dl (8.6-10.3) L 02/15/23 07:58 Total Bilirubin 1.5 mg/dl (0.2-1.0) H 02/12/23 15:43 AST 16 U/L (13-39) 02/12/23 15:43 ALT 8 U/L (7-52) 02/12/23 15:43 Alkaline Phosphatase 154 U/L (34-104) H 02/12/23 15:43 Total Protein 5.7 gm/dl (6.0-8.3) L 02/12/23 15:43 Albumin 3.1 gm/dl (3.4-5.0) L 02/12/23 15:43 Globulin 2.6 gm/dl (2.5-4.0) 02/12/23 15:43 Albumin/Globulin Ratio 1.2 (0.9-2) 02/12/23 15:43 Urine Color Dark Yellow 02/14/23 05:15 Urine Appearance Cloudy (Clear) A 02/14/23 05:15 Urine pH 6.0 (4.5-7.5) 02/14/23 05:15 Ur Specific [place] 1.017 (1.000-1.030) 02/14/23 05:15 Urine Protein Trace (Negative) H 02/14/23 05:15 Urine Glucose (UA) Negative (Negative) 02/14/23 05:15 Urine Ketones Trace (Negative) H 02/14/23 05:15 Urine Blood Negative (Negative) 02/14/23 05:15 Urine Nitrite Negative (Negative) 02/14/23 05:15 Urine Bilirubin 1+ (Negative) H 02/14/23 05:15 Urine Urobilinogen Negative (Negative) 02/14/23 05:15 Ur Leukocyte Esterase 1+ (Negative) H 02/14/23 05:15 Urine WBC (Auto) 5-10 /hpf (0-5) H 02/14/23 05:15 Urine RBC (Auto) 5-10 /hpf (0-4) H 02/14/23 05:15 U Hyaline Cast (Auto) 5-10 /lpf (0-5) H 02/14/23 05:15 U Epithel Cells (Auto) >30 /lpf (0-5) H 02/14/23 05:15 Urine Bacteria (Auto) Negative (Negative) 02/14/23 05:15 Bld Cult ID Panel PCR PCR Panel Negative (NotDetected) 02/12/23 15:50 Impressions Venous Doppler Study 02/12/23 15:16 RIGHT UPPER EXTREMITY VENOUS DOPPLER ULTRASOUND CLINICAL HISTORY: RIGHT ARM SWELLING, EVAL DVT COMPARISON STUDY: Right upper extremity venous Doppler ultrasound December 26, 2018. TECHNIQUE: Sonography of the venous system of the right upper extremity was performed. FINDINGS: The right internal jugular, subclavian, axillary, brachial, radial, ulnar, cephalic and basilic veins were patent. No venous thrombus was identified within the right upper extremity. Subcutaneous edema was incidentally noted. IMPRESSION: No venous thrombus within the right upper extremity. ACT 112: Negative or not required by law. Electronically signed by: Harman Marcus M.D. 02/12/2023 5:45 PM Breast Ultrasound 02/12/23 17:19 RIGHT BREAST ULTRASOUND CLINICAL HISTORY: Right periareolar erythema. Evaluate for abscess. COMPARISON STUDY: Chest CT August 18, 2015. TECHNIQUE: Sonography of the right periareolar region was performed to assess for abscess. FINDINGS: Right retroareolar edema was noted. No well-defined fluid collection was identified to suggest an abscess. This study was not performed to evaluate for mass however no mass was identified by sonography. IMPRESSION: 1. No right breast fluid collection to suggest abscess. 2. Edema within the right retroareolar breast. This may reflect cellulitis. Clinical follow-up to ensure resolution is recommended. If persistent symptoms, follow-up mammogram and diagnostic ultrasound are recommended. ACT 112: Negative or not required by law. Electronically signed by: Harman Marcus M.D. 02/12/2023 5:48 PM Extremity Venous Study 02/14/23 12:37 ULTRASOUND LEFT UPPER EXTREMITY VENOUS CLINICAL HISTORY: Left arm swelling. COMPARISON STUDY: No priors. TECHNIQUE: Real-time, grayscale, and color Doppler sonography of the deep veins of the left upper extremity is performed. Compression and augmentation were utilized. FINDINGS: There is no sonographic evidence of deep venous thrombosis identified in the left upper extremity. The left internal jugular, axillary, and brachial veins are patent and normally compressible. Normal venous waveforms and augmentation are seen within the left subclavian vein. The cephalic and basilic veins are clear. The visualized radial and ulnar veins are patent. Soft tissue edema is noted in the left arm. IMPRESSION: There is no sonographic evidence of deep venous thrombosis identified in the left upper extremity. ACT 112: Negative or not required by law. Electronically signed by: Don Laird M.D. 02/14/2023 2:15 PM
[2023-02-15] MEDS ORDERED: OPTIRAY 320 500ml IV ONE (13:00)
--- NOTE | 2023-02-15 13:32 | CT Scan Report ---
CT ANGIOGRAM OF THE CHEST CLINICAL HISTORY: Upper extremity edema. COMPARISON STUDY: Chest x-ray dated 07/23/2022. Chest CT dated 12/18/2015. TECHNIQUE: Following the IV administration of 106 cc of Optiray 320, CT angiogram of the chest was pe rformed from the thoracic inlet to the upper abdomen. Images are reviewed in the axial, sagittal, and coronal planes. 3-D MIPS images are created and assessed. IV contrast was administered without compl ication. A dose lowering technique was utilized adhering to the principles of ALARA. There is streak artifact from the arms which could not be elevated above the chest. CT DOSE: 853.21 mGy.cm FINDINGS: Thyroid: Imaged portions of the thyroid gland are normal in size and attenuation. Thoracic aorta: The thoracic aorta is normal in caliber and demonstrates standard 3-vessel arch anato my. No dissection is seen. The arch vessels are widely patent. Pulmonary vasculature: The pulmonary trunk is normal in caliber. There are no filling defects identif ied in main, lobar, or segmental pulmonary branches to suggest pulmonary embolus. Heart: A left internal jugular central venous infusion port is in place. The heart is normal in size and without pericardial effusion. The left subclavian vein and the SVC are markedly attenuated. There are large venous collaterals present in the mediastinum, the body wall, as well as dilatation of the azygos vein. Lungs and pleural spaces: There are small pleural effusions with dependent atelectasis. There is no a irspace consolidation typical for pneumonia. The trachea and central airways are clear. Mediastinum: There is no mediastinal lymphadenopathy. Babita: Clear. Axillae: There is no axillary lymphadenopathy. Upper abdomen: There is hepatic steatosis. Postsurgical change is noted in the partially imaged stoma ch. Skeletal structures: No lytic or blastic bony lesions are seen. IMPRESSION: 1. Unremarkable CT angiogram of the thoracic aorta. 2. There is no evidence of pulmonary embolus in the main, lobar, or segmental pulmonary arteries. 3. Small pleural effusions with dependent atelectasis. 4. The left subclavian vein and the superior vena cava are markedly attenuated, with large venous col laterals. 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 5. Hepatic steatosis. 6. Additional findings as above. ACT 112: Negative or not required by law. Electronically signed by: Don Laird M.D. 02/15/2023 1:30 PM
[2023-02-15] MEDS: ACETAMINOPHEN 325 MG TAB PO PRN (21:09)
[2023-02-15] MEDS: MELATONIN 3 MG TAB PO SCH (21:12)
[2023-02-16 07:41] LABS: Hematocrit (blood only) 27.9 % (37.0-47.0); Hemoglobin 9.7 g/dl (12.0-16.0); Mean Corpuscular Hemoglobin 33.7 pg (25.0-34.0); Mean Corpuscular Hgb Conc 34.8 g/dL (32.0-36.0); Mean Corpuscular Volume 96.9 fL (80.0-100.0); Mean Platelet Volume 10.7 fL (9.4-12.4); Platelet Count 236 K/uL (130-400); RDW Standard Deviation 46.3 fL (36.4-46.3); Red Blood Count 2.88 M/uL (4.20-5.40); White Blood Count 2.69 K/ul (4.8-10.8)
[2023-02-16 07:45] LABS: Calcium 7.6 mg/dl (8.6-10.3); Potassium 3.4 mmol/L (3.5-5.1)
[2023-02-16 07:51] LABS: BUN Creatinine Ratio 7.4 (10-20); Creatinine Clr Calc Pharmacy 140.4 ml/min; Est GFR (African American) 133.2 ml/min; Est GFR (Non-African American) 114.9 ml/min
[2023-02-16 08:05] LABS: RBC Morphology Unremarkable
[2023-02-16 08:06] LABS: Basophils # (auto) 0.02 K/uL (0.00-0.20); Basophils % (auto) 0.7 %; Eosinophils # (auto) 0.02 K/uL (0.00-0.50); Eosinophils % (auto) 0.7 %; Immature Granulocytes # (auto) 0.01 K/uL (0.01-0.20); Immature Granulocytes % (auto) 0.4 %; Lymphocytes # (auto) 1.04 K/uL (1.20-3.40); Lymphocytes % (auto) 38.7 %; Monocytes # (auto) 0.63 K/uL (0.11-0.59); Monocytes % (auto) 23.4 %; Neutrophils # (auto) 0.97 K/uL (1.40-6.50); Neutrophils % (auto) 36.1 %
[2023-02-16] MEDS: ENOXAPARIN INJ 40 MG/0.4 ML SYR SQ SCH (09:00)
[2023-02-16] MEDS: SUCRALFATE 1 GM/10 ML UDC PO SCH ×2 (09:01→21:50)
[2023-02-16] MEDS: VENLAFAXINE HCL 37.5 MG TAB PO SCH ×2 (09:01→21:50)
[2023-02-16] MEDS: CHOLECALCIFEROL 5,000 UNITS 125 MCG TAB PO SCH (09:01)
[2023-02-16] MEDS: CHOLECALCIFEROL 1,000 UNITS 25 MCG TAB PO SCH (09:01)
[2023-02-16] MEDS: MULTIVITAMIN CHEWABLE TAB PO SCH (09:01)
[2023-02-16] MEDS: LORATADINE 10 MG TAB PO SCH (09:02)
[2023-02-16] MEDS: THIAMINE HCL 100 MG TAB PO SCH (09:02)
[2023-02-16] MEDS: miSOPROStoL 100 MCG TAB PO SCH ×2 (09:02→21:49)
[2023-02-16] MEDS: TOPIRAMATE 50 MG TAB PO SCH ×2 (09:02→21:50)
[2023-02-16] MEDS: PANTOprazole 40 MG TAB PO SCH ×2 (09:02→21:49)
[2023-02-16] MEDS: DAPTOmycin 300 MG in SYRINGE 0 ML IV SCH (10:41)
[2023-02-16] MEDS ORDERED: POTASSIUM CHLORIDE CRTAB 20 MEQ TABCR PO STA (12:32)
--- NOTE | 2023-02-16 12:36 | Hospitalist Progress Note ---
Date of Service February 16, 2023 Assessment & Plan (1) Cellulitis: Plan Right breast cellulitis Severe sepsis POA:Secondary to above. Tachycardia, leukopenia, lactic acidosis at presentation. Gram-positive cocci in cluster on blood culture Patient sent from PCP office for right breast rash associated with RUE>LUE swelling Patient reports that symptoms going on for 4 to 5 days, denies any fever or chest pain. Venous Doppler negative for DVT in RUE and left upper limb Breast ultrasound suggestive of cellulitis, no fluid collection to suggest abscess. Blood culture from February 12gram-positive cocci in clusters in 1 out of 4 bottles. Identified as micrococcus Repeat blood culture pending Continue on daptomycin for the cellulitis and positive blood culture Monitor for fever. Follow-up on repeat blood culture. Left arm swelling Patient reports of persistent left arm swelling despite treatment for cellulitis. CTA chest reviewed personally and discussed with radiologist; no evidence of PE. Left subclavian vein and superior vena cava are markedly attenuated with large venous collaterals. Likely secondary to chronic stenosis related to indwelling catheter. Patient had Port-A-Cath in 2015. Discussed with patient and mother both; vascular surgery consult for possible Port-A-Cath exchange. Hyponatremia; chronic. Stable. Continue to monitor daily BMP Hypokalemia-repleted Leukopeniahistory of leukopenia dating back to 2021; continue to monitor CBC daily. Other chronic medical conditions: MS-on Ocrevus Migraine-on topiramate,rizatriptan prn. Continue Mood disorder- continue venlafaxine. Discussed with patient's mother at bedside. Answered questions/queries. DVT prophylaxis: Lovenox Full code Time spent evaluating patient, direct bedside care, chart review, placing orders, interpretation of diagnostic studies, discussion with consultants, patient, and family members, as well as other required patient management activities is 60 minutes Please note the above document was generated using voice recognition software. It may contain grammatical, syntax or spelling errors. Any formal questions or concerns about the content, text or information contained within the body of this dictation should be directly addressed to the provider for clarification Admission and Anticipated Discharge Date Admission Date: February 12, 2023 Subjective Patient seen and examined at bedside. She is comfortably sitting up on the bed; not in any distress. Afebrile overnight. Hemodynamic stable Review of Systems Review of Systems: All systems reviewed & are unremarkable except as noted in Subjective Physical Exam Physical Exam: GENERAL: Alert and oriented x3. NAD, on RA. HEENT: No pallor, no icterus. Pupils equal, round and reactive to light. Oral mucosa moist. NECK: No JVD, no neck masses. HEART: S1 and S2 heard. Regular rate and rhythm. No murmur, no gallop. RESPIRATORY SYSTEM: Normal AP diameter. No accessory muscle use. No wheezing, no crackles. ABDOMEN: Soft, bowel sounds present, nontender, no distention. CENTRAL NERVOUS SYSTEM: No facial droop. Speech is clear. Obeys simple commands. Moves extremities. EXTREMITIES: No edema, no erythema seen. Significant improvement in the erythema and swelling on arm/breast. Still swelling present on left arm. Results & Data Results & Data Vital Signs (Past 12 Hours) Vital Signs Temp Pulse Pulse Resp BP Pulse Ox O2 Del Method 02/16/23 11:49 36.6 C 83 18 131/92 99 Room Air 02/16/23 08:15 36.8 C 75 18 122/87 100 Room Air 02/16/23 06:00 78 02/16/23 02:59 36.7 C 80 16 116/78 100 Room Air Laboratory Results Laboratory Results WBC 2.69 K/ul (4.8-10.8) L 02/16/23 05:58 RBC 2.88 M/uL (4.20-5.40) L 02/16/23 05:58 Hgb 9.7 g/dl (12.0-16.0) L 02/16/23 05:58 Hct 27.9 % (37.0-47.0) L 02/16/23 05:58 MCV 96.9 fL (80.0-100.0) 02/16/23 05:58 MCH 33.7 pg (25.0-34.0) 02/16/23 05:58 MCHC 34.8 g/dL (32.0-36.0) 02/16/23 05:58 RDW Std Deviation 46.3 fL (36.4-46.3) 02/16/23 05:58 RDW Coeff of [place] 13.0 % (11.5-14.5) 02/16/23 05:58 Plt Count 236 K/uL (130-400) 02/16/23 05:58 MPV 10.7 fL (9.4-12.4) 02/16/23 05:58 Immature Gran % (Auto) 0.4 % 02/16/23 05:58 Neut % (Auto) 36.1 % 02/16/23 05:58 Lymph % (Auto) 38.7 % 02/16/23 05:58 [place] % (Auto) 23.4 % 02/16/23 05:58 Eos % (Auto) 0.7 % 02/16/23 05:58 Baso % (Auto) 0.7 % 02/16/23 05:58 Neut # (Auto) 0.97 K/uL (1.40-6.50) L* 02/16/23 05:58 Lymph # (Auto) 1.04 K/uL (1.20-3.40) L 02/16/23 05:58 [place] # (Auto) 0.63 K/uL (0.11-0.59) H 02/16/23 05:58 Eos # (Auto) 0.02 K/uL (0.00-0.50) 02/16/23 05:58 Baso # (Auto) 0.02 K/uL (0.00-0.20) 02/16/23 05:58 Immature Gran # (Auto) 0.01 K/uL (0.01-0.20) 02/16/23 05:58 RBC Morphology Unremarkable 02/16/23 05:58 PT 12.6 Seconds (9.0-12.0) H 02/12/23 15:43 INR 1.2 (0.9-1.1) H 02/12/23 15:43 APTT 36.5 Seconds (21.0-31.0) H 02/13/23 04:25 PTT Ratio 1.3 02/13/23 04:25 Sodium 135 mmol/L (136-145) L 02/16/23 05:58 Potassium 3.4 mmol/L (3.5-5.1) L 02/16/23 05:58 Chloride 109 mmol/L (98-107) H 02/16/23 05:58 Carbon Dioxide 22 mmol/L (21-32) 02/16/23 05:58 Anion Gap 4 (3-11) 02/16/23 05:58 BUN 5 mg/dl (6-23) L 02/16/23 05:58 Creatinine 0.68 mg/dl (0.6-1.2) 02/16/23 05:58 Est Cr Clr Drug Dosing 140.4 ml/min 02/16/23 05:58 Est GFR ( Amer) 133.2 ml/min 02/16/23 05:58 Est GFR (Non-Af Amer) 114.9 ml/min 02/16/23 05:58 BUN/Creatinine Ratio 7.4 (10-20) L 02/16/23 05:58 Glucose 75 mg/dl (70-99(Fasting)) 02/16/23 05:58 Lactate 2.2 mmol/L (0.4-2.0) H* 02/12/23 17:55 Calcium 7.6 mg/dl (8.6-10.3) L 02/16/23 05:58 Total Bilirubin 1.5 mg/dl (0.2-1.0) H 02/12/23 15:43 AST 16 U/L (13-39) 02/12/23 15:43 ALT 8 U/L (7-52) 02/12/23 15:43 Alkaline Phosphatase 154 U/L (34-104) H 02/12/23 15:43 Total Protein 5.7 gm/dl (6.0-8.3) L 02/12/23 15:43 Albumin 3.1 gm/dl (3.4-5.0) L 02/12/23 15:43 Globulin 2.6 gm/dl (2.5-4.0) 02/12/23 15:43 Albumin/Globulin Ratio 1.2 (0.9-2) 02/12/23 15:43 Urine Color Dark Yellow 02/14/23 05:15 Urine Appearance Cloudy (Clear) A 02/14/23 05:15 Urine pH 6.0 (4.5-7.5) 02/14/23 05:15 Ur Specific [place] 1.017 (1.000-1.030) 02/14/23 05:15 Urine Protein Trace (Negative) H 02/14/23 05:15 Urine Glucose (UA) Negative (Negative) 02/14/23 05:15 Urine Ketones Trace (Negative) H 02/14/23 05:15 Urine Blood Negative (Negative) 02/14/23 05:15 Urine Nitrite Negative (Negative) 02/14/23 05:15 Urine Bilirubin 1+ (Negative) H 02/14/23 05:15 Urine Urobilinogen Negative (Negative) 02/14/23 05:15 Ur Leukocyte Esterase 1+ (Negative) H 02/14/23 05:15 Urine WBC (Auto) 5-10 /hpf (0-5) H 02/14/23 05:15 Urine RBC (Auto) 5-10 /hpf (0-4) H 02/14/23 05:15 U Hyaline Cast (Auto) 5-10 /lpf (0-5) H 02/14/23 05:15 U Epithel Cells (Auto) >30 /lpf (0-5) H 02/14/23 05:15 Urine Bacteria (Auto) Negative (Negative) 02/14/23 05:15 Bld Cult ID Panel PCR PCR Panel Negative (NotDetected) 02/12/23 15:50 Impressions Venous Doppler Study 02/12/23 15:16 RIGHT UPPER EXTREMITY VENOUS DOPPLER ULTRASOUND CLINICAL HISTORY: RIGHT ARM SWELLING, EVAL DVT COMPARISON STUDY: Right upper extremity venous Doppler ultrasound December 26, 2018. TECHNIQUE: Sonography of the venous system of the right upper extremity was performed. FINDINGS: The right internal jugular, subclavian, axillary, brachial, radial, ulnar, cephalic and basilic veins were patent. No venous thrombus was identified within the right upper extremity. Subcutaneous edema was incidentally noted. IMPRESSION: No venous thrombus within the right upper extremity. ACT 112: Negative or not required by law. Electronically signed by: Harman Marcus M.D. 02/12/2023 5:45 PM Breast Ultrasound 02/12/23 17:19 RIGHT BREAST ULTRASOUND CLINICAL HISTORY: Right periareolar erythema. Evaluate for abscess. COMPARISON STUDY: Chest CT August 18, 2015. TECHNIQUE: Sonography of the right periareolar region was performed to assess for abscess. FINDINGS: Right retroareolar edema was noted. No well-defined fluid collection was identified to suggest an abscess. This study was not performed to evaluate for mass however no mass was identified by sonography. IMPRESSION: 1. No right breast fluid collection to suggest abscess. 2. Edema within the right retroareolar breast. This may reflect cellulitis. Clinical follow-up to ensure resolution is recommended. If persistent symptoms, follow-up mammogram and diagnostic ultrasound are recommended. ACT 112: Negative or not required by law. Electronically signed by: Harman Marcus M.D. 02/12/2023 5:48 PM Extremity Venous Study 02/14/23 12:37 ULTRASOUND LEFT UPPER EXTREMITY VENOUS CLINICAL HISTORY: Left arm swelling. COMPARISON STUDY: No priors. TECHNIQUE: Real-time, grayscale, and color Doppler sonography of the deep veins of the left upper extremity is performed. Compression and augmentation were utilized. FINDINGS: There is no sonographic evidence of deep venous thrombosis identified in the left upper extremity. The left internal jugular, axillary, and brachial veins are patent and normally compressible. Normal venous waveforms and augmentation are seen within the left subclavian vein. The cephalic and basilic veins are clear. The visualized radial and ulnar veins are patent. Soft tissue edema is noted in the left arm. IMPRESSION: There is no sonographic evidence of deep venous thrombosis identified in the left upper extremity. ACT 112: Negative or not required by law. Electronically signed by: Don Laird M.D. 02/14/2023 2:15 PM Chest CTA 02/15/23 11:00 CT ANGIOGRAM OF THE CHEST CLINICAL HISTORY: Upper extremity edema. COMPARISON STUDY: Chest x-ray dated 07/23/2022. Chest CT dated 12/18/2015. TECHNIQUE: Following the IV administration of 106 cc of Optiray 320, CT angiogram of the chest was performed from the thoracic inlet to the upper abdomen. Images are reviewed in the axial, sagittal, and coronal planes. 3-D MIPS images are created and assessed. IV contrast was administered without complication. A dose lowering technique was utilized adhering to the principles of ALARA. There is streak artifact from the arms which could not be elevated above the chest. CT DOSE: 853.21 mGy.cm FINDINGS: Thyroid: Imaged portions of the thyroid gland are normal in size and attenuation. Thoracic aorta: The thoracic aorta is normal in caliber and demonstrates standard 3-vessel arch anatomy. No dissection is seen. The arch vessels are widely patent. Pulmonary vasculature: The pulmonary trunk is normal in caliber. There are no filling defects identified in main, lobar, or segmental pulmonary branches to suggest pulmonary embolus. Heart: A left internal jugular central venous infusion port is in place. The heart is normal in size and without pericardial effusion. The left subclavian vein and the SVC are markedly attenuated. There are large venous collaterals present in the mediastinum, the body wall, as well as dilatation of the azygos vein. Lungs and pleural spaces: There are small pleural effusions with dependent atelectasis. There is no airspace consolidation typical for pneumonia. The trachea and central airways are clear. Mediastinum: There is no mediastinal lymphadenopathy. Babita: Clear. Axillae: There is no axillary lymphadenopathy. Upper abdomen: There is hepatic steatosis. Postsurgical change is noted in the partially imaged stomach. Skeletal structures: No lytic or blastic bony lesions are seen. IMPRESSION: 1. Unremarkable CT angiogram of the thoracic aorta. 2. There is no evidence of pulmonary embolus in the main, lobar, or segmental pulmonary arteries. 3. Small pleural effusions with dependent atelectasis. 4. The left subclavian vein and the superior vena cava are markedly attenuated, with large venous collaterals. 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 5. Hepatic steatosis. 6. Additional findings as above. ACT 112: Negative or not required by law. Electronically signed by: Don Laird M.D. 02/15/2023 1:30 PM
[2023-02-16] MEDS: MELATONIN 3 MG TAB PO SCH (21:49)
[2023-02-16] MEDS: ACETAMINOPHEN 325 MG TAB PO PRN (21:50)
[2023-02-17] MEDS: MULTIVITAMIN CHEWABLE TAB PO SCH (08:18)
[2023-02-17] MEDS: SUCRALFATE 1 GM/10 ML UDC PO SCH ×2 (08:18→20:26)
[2023-02-17] MEDS: TOPIRAMATE 50 MG TAB PO SCH ×2 (08:19→20:27)
[2023-02-17] MEDS: LORATADINE 10 MG TAB PO SCH (08:19)
[2023-02-17] MEDS: miSOPROStoL 100 MCG TAB PO SCH ×2 (08:19→20:26)
[2023-02-17] MEDS: CHOLECALCIFEROL 1,000 UNITS 25 MCG TAB PO SCH (08:19)
[2023-02-17] MEDS: PANTOprazole 40 MG TAB PO SCH ×2 (08:19→20:26)
[2023-02-17] MEDS: ENOXAPARIN INJ 40 MG/0.4 ML SYR SQ SCH (08:20)
[2023-02-17] MEDS: CHOLECALCIFEROL 5,000 UNITS 125 MCG TAB PO SCH (08:20)
[2023-02-17] MEDS: VENLAFAXINE HCL 37.5 MG TAB PO SCH ×2 (08:20→20:27)
[2023-02-17] MEDS: THIAMINE HCL 100 MG TAB PO SCH (09:11)
[2023-02-17] MEDS: DAPTOmycin 300 MG in SYRINGE 0 ML IV SCH (10:33)
--- NOTE | 2023-02-17 10:58 | Hospitalist Progress Note ---
Date of Service February 17, 2023 Assessment & Plan (1) Cellulitis: Plan Right breast cellulitis Severe sepsis POA:Secondary to above. Tachycardia, leukopenia, lactic acidosis at presentation. Gram-positive cocci in cluster on blood culture Patient sent from PCP office for right breast rash associated with RUE>LUE swelling Patient reports that symptoms going on for 4 to 5 days, denies any fever or chest pain. Venous Doppler negative for DVT in RUE and left upper limb Breast ultrasound suggestive of cellulitis, no fluid collection to suggest abscess. Blood culture from February 12gram-positive cocci in clusters in 1 out of 4 bottles. Identified as micrococcus Repeat blood culture no growth till now. Continue on daptomycin for the cellulitis and positive blood culture Monitor for fever. Follow-up on repeat blood culture. Left arm swelling Patient reports of persistent left arm swelling despite treatment for cellulitis. CTA chest reviewed personally and discussed with radiologist; no evidence of PE. Left subclavian vein and superior vena cava are markedly attenuated with large venous collaterals. Likely secondary to chronic stenosis related to indwelling catheter. Patient had Port-A-Cath placed in 2015. Discussed with patient and mother both; vascular surgery consult for possible Port-A-Cath exchange. Hyponatremia; chronic. Stable. Continue to monitor daily BMP Hypokalemia-repleted Leukopeniahistory of leukopenia dating back to 2021; continue to monitor CBC daily. Other chronic medical conditions: MS-on Ocrevus Migraine-on topiramate,rizatriptan prn. Continue Mood disorder- continue venlafaxine. Discussed with patient's mother at bedside. Answered questions/queries. DVT prophylaxis: Lovenox Full code Please note the above document was generated using voice recognition software. It may contain grammatical, syntax or spelling errors. Any formal questions or concerns about the content, text or information contained within the body of this dictation should be directly addressed to the provider for clarification Admission and Anticipated Discharge Date Admission Date: February 12, 2023 Subjective Patient seen and examined at bedside. She is comfortably sitting up on the bed; not in distress. Reports that the swelling and redness has improved. Review of Systems Review of Systems: All systems reviewed & are unremarkable except as noted in Subjective Physical Exam Physical Exam: GENERAL: Alert and oriented x3. NAD, on RA. HEENT: No pallor, no icterus. Pupils equal, round and reactive to light. Oral mucosa moist. NECK: No JVD, no neck masses. HEART: S1 and S2 heard. Regular rate and rhythm. No murmur, no gallop. RESPIRATORY SYSTEM: Normal AP diameter. No accessory muscle use. No wheezing, no crackles. ABDOMEN: Soft, bowel sounds present, nontender, no distention. CENTRAL NERVOUS SYSTEM: No facial droop. Speech is clear. Obeys simple commands. Moves extremities. EXTREMITIES: No edema, no erythema seen. Significant improvement in the erythema and swelling on arm/breast. Still swelling present on left arm; slightly improved. Results & Data Results & Data Vital Signs (Past 12 Hours) Vital Signs Temp Pulse Pulse Resp BP Pulse Ox O2 Del Method 02/17/23 06:00 83 02/17/23 03:29 36.8 C 84 18 124/83 99 Room Air 02/16/23 23:57 81 02/16/23 23:03 36.6 C 82 16 116/83 100 Room Air Laboratory Results Laboratory Results WBC 2.69 K/ul (4.8-10.8) L 02/16/23 05:58 RBC 2.88 M/uL (4.20-5.40) L 02/16/23 05:58 Hgb 9.7 g/dl (12.0-16.0) L 02/16/23 05:58 Hct 27.9 % (37.0-47.0) L 02/16/23 05:58 MCV 96.9 fL (80.0-100.0) 02/16/23 05:58 MCH 33.7 pg (25.0-34.0) 02/16/23 05:58 MCHC 34.8 g/dL (32.0-36.0) 02/16/23 05:58 RDW Std Deviation 46.3 fL (36.4-46.3) 02/16/23 05:58 RDW Coeff of [place] 13.0 % (11.5-14.5) 02/16/23 05:58 Plt Count 236 K/uL (130-400) 02/16/23 05:58 MPV 10.7 fL (9.4-12.4) 02/16/23 05:58 Immature Gran % (Auto) 0.4 % 02/16/23 05:58 Neut % (Auto) 36.1 % 02/16/23 05:58 Lymph % (Auto) 38.7 % 02/16/23 05:58 [place] % (Auto) 23.4 % 02/16/23 05:58 Eos % (Auto) 0.7 % 02/16/23 05:58 Baso % (Auto) 0.7 % 02/16/23 05:58 Neut # (Auto) 0.97 K/uL (1.40-6.50) L* 02/16/23 05:58 Lymph # (Auto) 1.04 K/uL (1.20-3.40) L 02/16/23 05:58 [place] # (Auto) 0.63 K/uL (0.11-0.59) H 02/16/23 05:58 Eos # (Auto) 0.02 K/uL (0.00-0.50) 02/16/23 05:58 Baso # (Auto) 0.02 K/uL (0.00-0.20) 02/16/23 05:58 Immature Gran # (Auto) 0.01 K/uL (0.01-0.20) 02/16/23 05:58 RBC Morphology Unremarkable 02/16/23 05:58 PT 12.6 Seconds (9.0-12.0) H 02/12/23 15:43 INR 1.2 (0.9-1.1) H 02/12/23 15:43 APTT 36.5 Seconds (21.0-31.0) H 02/13/23 04:25 PTT Ratio 1.3 02/13/23 04:25 Sodium 135 mmol/L (136-145) L 02/16/23 05:58 Potassium 3.4 mmol/L (3.5-5.1) L 02/16/23 05:58 Chloride 109 mmol/L (98-107) H 02/16/23 05:58 Carbon Dioxide 22 mmol/L (21-32) 02/16/23 05:58 Anion Gap 4 (3-11) 02/16/23 05:58 BUN 5 mg/dl (6-23) L 02/16/23 05:58 Creatinine 0.68 mg/dl (0.6-1.2) 02/16/23 05:58 Est Cr Clr Drug Dosing 140.4 ml/min 02/16/23 05:58 Est GFR ( Amer) 133.2 ml/min 02/16/23 05:58 Est GFR (Non-Af Amer) 114.9 ml/min 02/16/23 05:58 BUN/Creatinine Ratio 7.4 (10-20) L 02/16/23 05:58 Glucose 75 mg/dl (70-99(Fasting)) 02/16/23 05:58 Lactate 2.2 mmol/L (0.4-2.0) H* 02/12/23 17:55 Calcium 7.6 mg/dl (8.6-10.3) L 02/16/23 05:58 Total Bilirubin 1.5 mg/dl (0.2-1.0) H 02/12/23 15:43 AST 16 U/L (13-39) 02/12/23 15:43 ALT 8 U/L (7-52) 02/12/23 15:43 Alkaline Phosphatase 154 U/L (34-104) H 02/12/23 15:43 Total Protein 5.7 gm/dl (6.0-8.3) L 02/12/23 15:43 Albumin 3.1 gm/dl (3.4-5.0) L 02/12/23 15:43 Globulin 2.6 gm/dl (2.5-4.0) 02/12/23 15:43 Albumin/Globulin Ratio 1.2 (0.9-2) 02/12/23 15:43 Urine Color Dark Yellow 02/14/23 05:15 Urine Appearance Cloudy (Clear) A 02/14/23 05:15 Urine pH 6.0 (4.5-7.5) 02/14/23 05:15 Ur Specific [place] 1.017 (1.000-1.030) 02/14/23 05:15 Urine Protein Trace (Negative) H 02/14/23 05:15 Urine Glucose (UA) Negative (Negative) 02/14/23 05:15 Urine Ketones Trace (Negative) H 02/14/23 05:15 Urine Blood Negative (Negative) 02/14/23 05:15 Urine Nitrite Negative (Negative) 02/14/23 05:15 Urine Bilirubin 1+ (Negative) H 02/14/23 05:15 Urine Urobilinogen Negative (Negative) 02/14/23 05:15 Ur Leukocyte Esterase 1+ (Negative) H 02/14/23 05:15 Urine WBC (Auto) 5-10 /hpf (0-5) H 02/14/23 05:15 Urine RBC (Auto) 5-10 /hpf (0-4) H 02/14/23 05:15 U Hyaline Cast (Auto) 5-10 /lpf (0-5) H 02/14/23 05:15 U Epithel Cells (Auto) >30 /lpf (0-5) H 02/14/23 05:15 Urine Bacteria (Auto) Negative (Negative) 02/14/23 05:15 Bld Cult ID Panel PCR PCR Panel Negative (NotDetected) 02/12/23 15:50 Impressions Venous Doppler Study 02/12/23 15:16 RIGHT UPPER EXTREMITY VENOUS DOPPLER ULTRASOUND CLINICAL HISTORY: RIGHT ARM SWELLING, EVAL DVT COMPARISON STUDY: Right upper extremity venous Doppler ultrasound December 26, 2018. TECHNIQUE: Sonography of the venous system of the right upper extremity was performed. FINDINGS: The right internal jugular, subclavian, axillary, brachial, radial, ulnar, cephalic and basilic veins were patent. No venous thrombus was identified within the right upper extremity. Subcutaneous edema was incidentally noted. IMPRESSION: No venous thrombus within the right upper extremity. ACT 112: Negative or not required by law. Electronically signed by: Harman Marcus M.D. 02/12/2023 5:45 PM Breast Ultrasound 02/12/23 17:19 RIGHT BREAST ULTRASOUND CLINICAL HISTORY: Right periareolar erythema. Evaluate for abscess. COMPARISON STUDY: Chest CT August 18, 2015. TECHNIQUE: Sonography of the right periareolar region was performed to assess for abscess. FINDINGS: Right retroareolar edema was noted. No well-defined fluid collection was identified to suggest an abscess. This study was not performed to evaluate for mass however no mass was identified by sonography. IMPRESSION: 1. No right breast fluid collection to suggest abscess. 2. Edema within the right retroareolar breast. This may reflect cellulitis. C linical follow-up to ensure resolution is recommended. If persistent symptoms, follow-up mammogram and diagnostic ultrasound are recommended. ACT 112: Negative or not required by law. Electronically signed by: Harman Marcus M.D. 02/12/2023 5:48 PM Extremity Venous Study 02/14/23 12:37 ULTRASOUND LEFT UPPER EXTREMITY VENOUS CLINICAL HISTORY: Left arm swelling. COMPARISON STUDY: No priors. TECHNIQUE: Real-time, grayscale, and color Doppler sonography of the deep veins of the left upper extremity is performed. Compression and augmentation were utilized. FINDINGS: There is no sonographic evidence of deep venous thrombosis identified in the left upper extremity. The left internal jugular, axillary, and brachial veins are patent and normally compressible. Normal venous waveforms and augmentation are seen within the left subclavian vein. The cephalic and basilic veins are clear. The visualized radial and ulnar veins are patent. Soft tissue edema is noted in the left arm. IMPRESSION: There is no sonographic evidence of deep venous thrombosis identified in the left upper extremity. ACT 112: Negative or not required by law. Electronically signed by: Don Laird M.D. 02/14/2023 2:15 PM Chest CTA 02/15/23 11:00 CT ANGIOGRAM OF THE CHEST CLINICAL HISTORY: Upper extremity edema. COMPARISON STUDY: Chest x-ray dated 07/23/2022. Chest CT dated 12/18/2015. TECHNIQUE: Following the IV administration of 106 cc of Optiray 320, CT angiogram of the chest was performed from the thoracic inlet to the upper abdomen. Images are reviewed in the axial, sagittal, and coronal planes. 3-D MIPS images are created and assessed. IV contrast was administered without complication. A dose lowering technique was utilized adhering to the principles of ALARA. There is streak artifact from the arms which could not be elevated above the chest. CT DOSE: 853.21 mGy.cm FINDINGS: Thyroid: Imaged portions of the thyroid gland are normal in size and attenuation. Thoracic aorta: The thoracic aorta is normal in caliber and demonstrates standard 3-vessel arch anatomy. No dissection is seen. The arch vessels are widely patent. Pulmonary vasculature: The pulmonary trunk is normal in caliber. There are no filling defects identified in main, lobar, or segmental pulmonary branches to suggest pulmonary embolus. Heart: A left internal jugular central venous infusion port is in place. The heart is normal in size and without pericardial effusion. The left subclavian vein and the SVC are markedly attenuated. There are large venous collaterals present in the mediastinum, the body wall, as well as dilatation of the azygos vein. Lungs and pleural spaces: There are small pleural effusions with dependent atelectasis. There is no airspace consolidation typical for pneumonia. The trachea and central airways are clear. Mediastinum: There is no mediastinal lymphadenopathy. Babita: Clear. Axillae: There is no axillary lymphadenopathy. Upper abdomen: There is hepatic steatosis. Postsurgical change is noted in the partially imaged stomach. Skeletal structures: No lytic or blastic bony lesions are seen. IMPRESSION: 1. Unremarkable CT angiogram of the thoracic aorta. 2. There is no evidence of pulmonary embolus in the main, lobar, or segmental pulmonary arteries. 3. Small pleural effusions with dependent atelectasis. 4. The left subclavian vein and the superior vena cava are markedly attenuated, with large venous collaterals. 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 5. Hepatic steatosis. 6. Additional findings as above. ACT 112: Negative or not required by law. Electronically signed by: Don Laird M.D. 02/15/2023 1:30 PM
[2023-02-17] MEDS: MELATONIN 3 MG TAB PO SCH (20:26)
[2023-02-17] MEDS: ACETAMINOPHEN 325 MG TAB PO PRN (20:28)
[2023-02-18 06:51] LABS: Basophils # (auto) 0.04 K/uL (0.00-0.20); Basophils % (auto) 1.3 %; Eosinophils # (auto) 0.02 K/uL (0.00-0.50); Eosinophils % (auto) 0.6 %; Hematocrit (blood only) 29.4 % (37.0-47.0); Hemoglobin 10.3 g/dl (12.0-16.0); Immature Granulocytes # (auto) 0.02 K/uL (0.01-0.20); Immature Granulocytes % (auto) 0.6 %; Lymphocytes % (auto) 42.1 %; Mean Corpuscular Hemoglobin 33.1 pg (25.0-34.0); Mean Corpuscular Volume 94.5 fL (80.0-100.0); Mean Platelet Volume 10.6 fL (9.4-12.4); Monocytes # (auto) 0.68 K/uL (0.11-0.59); Neutrophils # (auto) 1.03 K/uL (1.40-6.50); Neutrophils % (auto) 33.4 %; Platelet Count 267 K/uL (130-400); RDW Coefficient of Variation 13.2 % (11.5-14.5); RDW Standard Deviation 45.5 fL (36.4-46.3); Red Blood Count 3.11 M/uL (4.20-5.40); White Blood Count 3.09 K/ul (4.8-10.8)
[2023-02-18 07:07] LABS: BUN Creatinine Ratio 6.1 (10-20); Calcium 7.6 mg/dl (8.6-10.3); Creatinine Clr Calc Pharmacy 144.6 ml/min; Est GFR (African American) 134.5 ml/min; Est GFR (Non-African American) 116.1 ml/min; Potassium 3.5 mmol/L (3.5-5.1)
[2023-02-18] MEDS: CHOLECALCIFEROL 5,000 UNITS 125 MCG TAB PO SCH (08:17)
[2023-02-18] MEDS: THIAMINE HCL 100 MG TAB PO SCH (08:17)
[2023-02-18] MEDS: SUCRALFATE 1 GM/10 ML UDC PO SCH (08:17)
[2023-02-18] MEDS: CHOLECALCIFEROL 1,000 UNITS 25 MCG TAB PO SCH (08:17)
[2023-02-18] MEDS: TOPIRAMATE 50 MG TAB PO SCH (08:17)
[2023-02-18] MEDS: LORATADINE 10 MG TAB PO SCH (08:17)
[2023-02-18] MEDS: MULTIVITAMIN CHEWABLE TAB PO SCH (08:17)
[2023-02-18] MEDS: ENOXAPARIN INJ 40 MG/0.4 ML SYR SQ SCH (08:18)
[2023-02-18] MEDS: miSOPROStoL 100 MCG TAB PO SCH (08:18)
[2023-02-18] MEDS: VENLAFAXINE HCL 37.5 MG TAB PO SCH (08:18)
[2023-02-18] MEDS: PANTOprazole 40 MG TAB PO SCH (08:18)
[2023-02-18] MEDS: DAPTOmycin 300 MG in SYRINGE 0 ML IV SCH (10:31)
--- NOTE | 2023-02-18 10:53 | Consultation ---
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 This is well collateralized. Her infusaport is functioning well. Discussed wtih Dr Dye, does not recommend removal or exchange of infusaport, since current one is functioning. Exchange of infusaport will not reduce the edema. If she no longer needs or wants the port, this can be removed, but would not replace. Advised pt of conservative treatments, including elevation of arm and compression sleeve. She is agreeable to using this method. Explained to patient, she expresses understanding. Please call if needed. History of Present Illness Reason for Consultation: LUE edema Attending Physician: Lazarus Florez MD History of Present Illness 32 yo f with hx of MS, RUE DVT, anemia, depression, s/p gastric bypass, asthma, peptic ulcer disease, admitted with breast cellulitis, seen in consultation today for LUE edema d/t indwelling L chest infusaport. Pt states has had swelling in arm since before admission. Cellulitis improving, but LUE edema only minimally improved. Cellulitis was in both breasts, and does have some edema chronically in RUE as well. Previously had port in R chest years ago. Current port is functioning well and was placed in 2016. Hx of RUE DVT in past. Denies [place], fever, chest pain, SOB, abd pain, N/V, rest pain, claudication, other complaints. CTA chest demonstrates central venous stenosis of L chest, with multiple venous collaterals. Venous US demonstrates no DVT currently. Allergies Allergy/AdvReac Type Severity Reaction Status Date / Time Cephalosporins Allergy Intermediate Hives Verified 02/12/23 18:31 clindamycin Allergy Intermediate HIVES/HEART Verified 02/12/23 18:31 BURN hydrocodone Allergy Intermediate Itching Verified 02/12/23 18:31 methocarbamol Allergy Intermediate ITCHY RASH Verified 02/12/23 18:31 Sulfa (Sulfonamide Allergy Intermediate Hives Verified 02/12/23 18:31 Antibiotics) cephalexin Allergy Unknown HAPPENED Verified 02/12/23 18:31 A SMALL CHILD Home Medications Medication Instructions Recorded Confirmed Type albuterol sulfate 2.5 mg/3 mL 2.5 mg inhalation Q4H PRN Wheezing 12/26/18 02/12/23 History (0.083 %) solution for nebulization albuterol sulfate 90 mcg/actuation 2 puff inhalation Q4H PRN Wheezing 12/26/18 02/12/23 History aerosol inhaler (ProAir HFA) cholecalciferol (vitamin D3) 125 5,000 unit PO QAM 12/26/18 02/12/23 History mcg (5,000 unit) tablet (Vitamin D3) cholecalciferol (vitamin D3) 25 1,000 unit PO QAM 12/26/18 02/12/23 History mcg (1,000 unit) capsule (Vitamin D3) cranberry 500 mg capsule 500 mg PO QAM 12/26/18 02/12/23 History cyanocobalamin (vitamin B-12) 1,000 mcg IM MONTHLY 12/26/18 02/12/23 History 1,000 mcg/mL injection solution hydroxyzine HCl 10 mg tablet 10 mg PO HS PRN Anxiety 12/26/18 02/12/23 History medroxyprogesterone 150 mg/mL 150 mg IM .EVERY 3 MONTHS 12/26/18 02/12/23 History intramuscular suspension ocrelizumab 30 mg/mL intravenous 300 mg IV .[id number] 12/26/18 02/12/23 History solution (Ocrevus) promethazine 25 mg tablet 25 mg PO Q6H PRN Nausea or Vomiting 12/26/18 02/12/23 History rizatriptan 10 mg tablet 10 mg PO DIRECTED PRN Headache 12/26/18 02/12/23 History topiramate 50 mg tablet 50 mg PO BID 12/26/18 02/12/23 History loratadine 10 mg tablet 10 mg PO QAM 07/31/22 02/12/23 History misoprostol 100 mcg tablet 100 mcg PO AMHS 07/31/22 02/12/23 History omeprazole 40 mg capsule,delayed 40 mg PO AMHS 07/31/22 02/12/23 History release pediatric multivitamin no.76 1 tab PO QAM 07/31/22 02/12/23 History (Flintstones Complete chewable tablet) sucralfate 100 mg/mL oral 1 g PO AMHS 07/31/22 02/12/23 History suspension venlafaxine 75 mg tablet 75 mg PO AMHS 07/31/22 02/12/23 History doxycycline hyclate 100 mg capsule 100 mg PO BID 4 days #8 caps 02/14/23 Rx Patient History Medical History Anxiety Cellulitis of right breast Depression Difficulty walking 02/04/23-- states was seen at [facility] twice in the past week for diffculty ambulating History of COVID-19 06/2020- cough; resolved History of deep vein thrombosis 2013- right arm History of multiple sclerosis Hx of peptic ulcer Hx of upper gastrointestinal hemorrhage 12/2021 Hypoglycemia states normally runs very low Iron deficiency anemia Migraine Obesity Patellofemoral dysfunction of right knee Postgastric surgery syndrome Surgical History History of esophagogastroduodenoscopy (EGD) History of gastric bypass History of insertion of tunneled central venous catheter (CVC) with port History of liver biopsy Hx of tonsillectomy Hx of tooth extraction Hx of wisdom tooth extraction S/P cholecystectomy S/P surgery on nasal septum Family History Other Diabetes Encounter for pre-operative examination Hypertension Social History Smoking Status: Never smoker Second Hand Exposure: No; Do You Dip or Chew Tobacco: No; Hx Alcohol Use: Yes Alcohol type: beer Alcohol type Comment: 6 beers approx every other day Hx Substance Use: No Preferred Language: Lithuanian Communication Ability: Effective Facility Supervisor Required: No Beliefs That Will Affect Care: None marital status: Single Current Living Situation: Parent Current Living Situation Comment: with parents current occupational status: unemployed and disabled current occupation: disabled 2/2 to MS dx at 18 Other Information That Helps Us Care for You: No Feels Safe at Home: Yes Safety Concerns: Feels Safe At This Time Assistive Devices: Wheelchair Review of Systems Review of Systems: All systems reviewed & are unremarkable except as noted in HPI & below Physical Exam Constitutional: WD/WN, vitals as above + obese, cooperative and comfortable; not in distress ENMT: Ears: no hearing impairment Neck: trachea midline Respiratory: normal respiratory effort, lungs clear to auscultation Auscultation: + diminished lung sounds Cardiovascular: Rate/Rhythm: regular rate and regular rhythm Vessels: normal peripheral pulses, posterior tibial pulses present, dorsalis pedis pulses present and radial pulses present Extremities: normal capillary refill, + edema (moderate edema LUE, from upper arm to mid forearm. Minimal edema off hand.), + varicosities (L chest wall) and + vascular access device (L chest wall, no swelling or drainage or tenderness) Gastrointestinal (Abdomen): Inspection/Auscultation: abdomen normal to inspection and normal bowel sounds Percussion/Palpation: abdomen soft; abdomen nontender Musculoskeletal: no cyanosis or clubbing, extremities motor strength 5/5 Skin: no rashes, warm and dry Neurologic: moves all extremities and awake; no focal motor deficits and not c onfused Psychiatric: A+Ox3, euthymic affect Results & Data Vital Signs (Past 12 Hours) Vital Signs Temp Pulse Pulse Resp BP Pulse Ox O2 Del Method 02/18/23 07:50 36.7 C 84 18 126/87 100 Room Air 02/18/23 07:00 77 02/18/23 02:18 36.9 C 88 18 131/92 98 Room Air 02/18/23 00:47 87 02/17/23 23:18 36.5 C 89 16 131/85 94 Room Air
--- NOTE | 2023-02-18 12:48 | Discharge Summary ---
Date of Service February 18, 2023 Admission HPI Per Admitting Provider 32-year-old lady with PMH of CHRISTOPHE, B12 deficiency, MS, hypoglycemia, chronic sinusitis, mild persistent asthma, mild rhinitis, migraine, major depressive disorder, insomnia, AUDELIA presented to the ED 02/12 at referral from PCP office for right breast rash. Patient reports her symptoms has been going on for last 4 to 5 days associated with bilateral upper extremity swelling rt > lt. Patient denies any fever or chills or chest pain or difficulty breathing or sore throat or cough or acute changes in her bowel or bladder habit. Patient does have poor appetite at baseline due to her esophageal stricture, She reports that her esophageal stenting is scheduled for March 19. Patient denies smoking/using tobacco, reports drinking 3-4 drinks a week, denies recreational drug use. Medications were reviewed with the patient. Plan of care discussed with the patient. Full code Admission Exam Per Admitting Provider GENERAL: Alert and oriented x3. NAD, on RA. HEENT: No pallor, no icterus. Pupils equal, round and reactive to light. Oral mucosa moist. NECK: No JVD, no neck masses. HEART: S1 and S2 heard. Regular rate and rhythm. No murmur, no gallop. RESPIRATORY SYSTEM: Normal AP diameter. No accessory muscle use. No wheezing, no crackles. ABDOMEN: Soft, bowel sounds present, nontender, no distention. CENTRAL NERVOUS SYSTEM: No facial droop. Speech is clear. Obeys simple commands. Moves extremities. EXTREMITIES: No edema, no erythema seen. Rt breast erythema w/ minimal swelling and warmth. BUE swelling noted, no p itting edema appreciated. NO axillary LAD appreciated. Principal Diagnosis Right arm cellulitis Left arm swelling due to subclavian vein stenosis Discharge Exam GENERAL: Alert and oriented x3. NAD, on RA. HEENT: No pallor, no icterus. Pupils equal, round and reactive to light. Oral mucosa moist. NECK: No JVD, no neck masses. HEART: S1 and S2 heard. Regular rate and rhythm. No murmur, no gallop. RESPIRATORY SYSTEM: Normal AP diameter. No accessory muscle use. No wheezing, no crackles. ABDOMEN: Soft, bowel sounds present, nontender, no distention. CENTRAL NERVOUS SYSTEM: No facial droop. Speech is clear. Obeys simple commands. Moves extremities. EXTREMITIES: No edema, no erythema seen. Significant improvement in the erythema and swelling on arm/breast. Still swelling present on left arm; slightly improved. Discharge Data Allergies Allergy/AdvReac Type Severity Reaction Status Date / Time Cephalosporins Allergy Intermediate Hives Verified 02/12/23 18:31 clindamycin Allergy Intermediate HIVES/HEART Verified 02/12/23 18:31 BURN hydrocodone Allergy Intermediate Itching Verified 02/12/23 18:31 methocarbamol Allergy Intermediate ITCHY RASH Verified 02/12/23 18:31 Sulfa (Sulfonamide Allergy Intermediate Hives Verified 02/12/23 18:31 Antibiotics) cephalexin Allergy Unknown HAPPENED Verified 02/12/23 18:31 A SMALL CHILD Consultations 02/12/23 17:58 ED Decision to Admit Stat 02/15/23 15:30 Consult Vascular Surgery Routine Ordered Studies 02/12/23 15:16 US venous doppler UE RT Stat 02/12/23 17:19 US breast RT limited Stat 02/14/23 12:37 US venous duplex arm [US venous doppler UE LT] Routine 02/15/23 11:00 CTA chest w con [CT angio chest w con] Urgent Hospital Course (1) Cellulitis: Plan Right breast cellulitis Severe sepsis POA:Secondary to above. Tachycardia, leukopenia, lactic acidosis at presentation. Patient sent from PCP office for right breast rash associated with RUE>LUE swelling Patient reports that symptoms going on for 4 to 5 days, denies any fever or chest pain. Venous Doppler negative for DVT in RUE and left upper limb Breast ultrasound suggestive of cellulitis, no fluid collection to suggest abscess. Blood culture from February 12gram-positive cocci in clusters in 1 out of 4 bottles. Identified as micrococcus Repeat blood culture no growth During the hospitalization, patient was treated with IV daptomycin. Significant improvement was seen over the cellulitis of right breast and arm. Initially, her blood culture was positive for gram-positive cocci in clusters identified as micrococcus. Repeat blood culture was negative Patient was discharged on 4 more days of doxycycline Left arm swelling secondary to Chronic subclavian vein stenosis Patient reports of persistent left arm swelling despite treatment for cellulitis. CTA chest reviewed personally and discussed with radiologist; no evidence of PE. Left subclavian vein and superior vena cava are markedly attenuated with large venous collaterals. Likely secondary to chronic stenosis related to indwelling catheter. Patient had Port-A-Cath placed in 2016. Vascular surgery evaluated the patient; patient has chronic left subclavian vein stenosis due to indwelling [id number]. It is well collateralized as per vascular surgery. They do not recommend to remove or exchange it as it is functioning properly. Recommended conservative measures with elevation of arm and compressive device. Patient to follow-up with PCP and decide on removal of infusaport in the future. Please note the above document was generated using voice recognition software. It may contain grammatical, syntax or spelling errors. Any formal questions or concerns about the content, text or information contained within the body of this dictation should be directly addressed to the provider for clarification Total Time Total Time Spent Total Time Spent (In Minutes): 45 Total Time Includes: Examination of the Patient, Discharge Planning, Medication Reconciliation, Communication With Other Providers and Other Discharge Plan Discharge Items Patient Disposition: Home - Self-Care Reason For Visit: CELLULITIS Discharge Diagnosis: Right Breast cellulitis Activity: Resume your previous activity Non-emergency contact: Primary Care Provider Call non-emergency contact if: you have any medication questions and your symptoms worsen Follow-up/Referrals: Kimberly Figueroa MD [Primary Care Provider] - (Date & Time 02/19/2023 11:00 AM Provider Kimberly Figueroa MD Department General Internal Medicine [facility] ) Diet: Regular Addtl Attending Provider Instructions: You were admitted to the hospital due to cellulitis which is the infection of the skin. You were treated with IV antibiotics during the hospitalization. You are prescribed doxycycline 100 mg twice daily for 4 more days to complete the course. The likely cause for the left swelling is chronic left subclavian vein stenosis due to indwelling Port-A-Cath. Vascular surgery evaluated you during the hospitalization; he does not recommend removal or exchange of the port as it is functioning. Exchange of the port will not reduce the edema. If you do not need the port, it can be taken out as outpatient. Please discuss this with your primary care doctor. Pending Studies at Discharge: No Stand-Alone Forms: [employer] Ads, Smoking Cessation Medications and DC Order Prescriptions: New doxycycline hyclate 100 mg capsule 100 mg PO BID 4 Days Qty: 8 0RF Continued cyanocobalamin (vitamin B-12) 1,000 mcg/mL Solution 1,000 mcg IM MONTHLY hydroxyzine HCl 10 mg tablet 10 mg PO HS PRN (Reason: Anxiety) medroxyprogesterone 150 mg/mL suspension 150 mg IM .EVERY 3 MONTHS cranberry 500 mg Capsule 500 mg PO QAM cholecalciferol (vitamin D3) [Vitamin D3] 1,000 unit Capsule 1,000 unit PO QAM Rx Instructions: TOTAL DOSE 6,000 UNITS--TAKES WITH 5,000 UNIT CAP. topiramate 50 mg tablet 50 mg PO BID cholecalciferol (vitamin D3) [Vitamin D3] 5,000 unit Tablet 5,000 unit PO QAM Rx Instructions: TOTAL DOSE 6,000 UNITS--TAKES WITH 1,000 UNIT CAP. rizatriptan 10 mg tablet 10 mg PO DIRECTED PRN (Reason: Headache) Rx Instructions: TAKE ONE TABLET AT ONSET OF HEADACHE MAY REPEAT DOSE IN 2 HOURS IF NEEDED Ocrevus 30 mg/mL Solution 300 mg IV .[id number] albuterol sulfate 2.5 mg /3 mL (0.083 %) Solution For Nebulization 2.5 mg INHALATION Q4H PRN (Reason: Wheezing) albuterol sulfate [ProAir HFA] 90 mcg/actuation Hfa Aerosol Inhaler 2 puff INHALATION Q4H PRN (Reason: Wheezing) promethazine 25 mg Tablet 25 mg PO Q6H PRN (Reason: Nausea or Vomiting) venlafaxine 75 mg tablet 75 mg PO [facility] Rx Instructions: PER EXT MED HX--75 MG BID. omeprazole 40 mg capsule,delayed release(DR/EC) 40 mg PO [facility] misoprostol 100 mcg tablet 100 mcg PO [facility] sucralfate 100 mg/mL suspension 1 g PO [facility] loratadine 10 mg Tablet 10 mg PO QAM Flintstones Complete Tablet,Chewable 1 tab PO QAM Discharge Orders: Discharge Order (Routine); Ordered 02/18/23 Ordered By: Lazarus Workman/Other Patient Handouts: Cellulitis Dc Admission Data Admit Date/Time: 02/12/23 18:49 Attending Provider: Lazarus Florez Admit Provider: Rony Wall Primary Care Provider: Kimberly Figueroa Other Providers: Stephanie Box ; Rony Wall ; Nicolas Dye Other Interventions: Discharge Summary Assessment (RN) Last Done: 02/15/23 10:24
[2023-03-14] MEDS ORDERED: CYANOCOBALAMIN 1000 MCG/ML VIAL IM SCH (09:00)
== END 2023-02-18 16:49 | disposition home or self-care (01) | DRG 872 ==
LOC: ED 14:59 → EDINP 18:49 → SUATTDRO 18:49 → 2N 02-13 20:13

== ENCOUNTER 2024-04-11 23:51 | Inpatient (IN) ==
--- NOTE | 2024-04-12 00:27 | Emergency Department Note ---
Impression & Plan Acute hyponatremia, Anemia, Acute leg pain ED Provider Note NAME: ROBB ROCHA AGE: 33 SEX: F : 1990 ARRIVES VIA: Walk-In INFORMANT: Patient ED PROVIDER(S): Tate Trevino DO CHIEF COMPLAINT: Left lower extremity pain HPI: Patient is a 33-year-old female who presents to the ER with a past medical history of MS on Ocrevus, obesity, gastric bypass, alcohol abuse, influenza and asthma who presents to the ER for a weeks worth of left lower extremity pain. Starts in the hip and goes down the entire left lower extremity. She initially notes that she feels like it is numb but notes that she can feel with exception of her toes and on the left lateral calf which is always numb. She denies any weakness. She notes she called her neurologist who set up an appointment coming up per mom who provides additional history. Patient denies any headache or change in vision. No chest pain or shortness of breath. No nausea, vomiting, or diarrhea. No dysuria, urgency, or frequency. No other exacerbating or remitting factors. ADDITIONAL HISTORY OBTAINED: Per HPI Chronic Medical/Social Conditions Affecting Care: Per HPI PAST MEDICAL HISTORY:See Below PAST SURGICAL HISTORY:See Below FAMILY HISTORY:See Below SOCIAL HISTORY:See Below HOME MEDICATIONS:See Below ALLERGIES:See Below VITALS:See Below PHYSICAL EXAMINATION: GENERAL: Sitting up in bed, alert, well appearing, well nourished, no distress, non-toxic EYE EXAM: normal conjunctiva. PERRL and EOM's grossly intact. OROPHARYNX: no exudate, no erythema, lips, buccal mucosa, and tongue normal and mucous membranes are moist NECK: supple, no nuchal rigidity, no adenopathy, non-tender LUNGS: Clear to auscultation. Normal chest wall mechanics HEART: no murmurs, S1 normal and S2 normal ABDOMEN: abdomen soft, non-tender, normo-active bowel sounds, no masses, no rebound or guarding. BACK: Back is symmetrical on inspection and there is no deformity, no midline tenderness, no CVA tenderness. SKIN: no rashes and no bruising UPPER EXTREMITIES: upper extremities are grossly normal. LOWER EXTREMITIES: No pitting edema. NEURO EXAM: Normal sensorium, cranial nerves II-XII intact, normal speech, no weakness of arms, no weakness of legs. No drift. Finger to nose intact. Gross sensation intact. MEDICAL DECISION MAKING: Patient is a 33-year-old female who presents ER for left leg pain concern that this is an MS flare. IV was established and blood work was obtained. Labs show mild leukopenia at 4000. Anemia at 7.8 down from 10. She denies any black or dark tarry stools. BMP with a hyponatremia at 124. She notes that she drinks about 3-4 beers a day. LFTs and bilirubin are unremarkable. CT of the head and duplex of the left lower extremity were obtained and were unremarkable. I initially discussed case with neurology and they noted that the patient needs no additional imaging in regards to the left leg pain beyond the CTs which were already obtained. Discussed with hospitalist for further evaluation management treatment. Consults/Care Managements Discussions: Per [facility] Triage Nursing notes reviewed. Limited review of prior medical records performed Vital Signs: reviewed and remarkable for no significant abnormalities Differential diagnosis: Differential Diagnosis includes but is not limited to ischemic Stroke, hemorrhagic stroke, bells palsy, mass, neoplasm, migraine headache, seizure, subarachnoid hemorrhage, TIA, and transient global amnesia. ER treatment provided: See below Diagnostics interpreted by me include EKG and cardiac monitoring as listed below: -Cardiac Monitoring: An order was placed for continuous cardiac monitoring. The monitor shows a rate of 90 with sinus rhythm. -ECG: none -Laboratory studies:Interpreted by me as stated above in MDM and shown below. Imaging studies: Xrays: As interpreted by me:none CTs show: CT Noncon of the head per my preliminary interpretation showed no obvious large bleed CT angios of the head and neck were negative per radiology Duplex of the left lower extremity was negative per radiology Procedures:none Critical Care: None Past Med/Surg History Problem List (Updated 04/12/24 @ 03:26 by Tate Trevino DO) Acute leg pain (Acute) Anemia (Acute) Acute hyponatremia (Acute) Subclavian vein stenosis, left Cellulitis Abdominal pain (Acute) Abdominal pain (Acute) Alcoholic intoxication (Acute) Knee contusion (Acute) Alcoholic intoxication (Acute) Asthma exacerbation (Acute) Left pulmonary infiltrate on CXR (Acute) Influenza (Acute) IV infusion line dysfunction (Acute) Arm pain, left (Acute) Hematoma of left lower extremity (Acute) Hematoma of left lower extremity (Acute) Leg pain, left (Acute) Abdominal pain (Acute) Diarrhea (Acute) Hypokalemia (Acute) Multiple sclerosis Neck pain (Acute) Numbness (Acute) Pain of left upper extremity (Acute) Postoperative edema (Acute) Right shoulder pain (Acute) Vomiting (Acute) Gastric bypass status for obesity Facial droop (Acute) History of multiple sclerosis (Acute) Right arm numbness (Acute) History of deep venous thrombosis (Acute) Right knee pain Injury of meniscus of right knee Anemia Alcohol abuse Alcohol use (Acute) Bilateral leg weakness (Acute) Fall (Acute) History of gastric bypass Depression Iron deficiency anemia Obesity S/P surgery on nasal septum Patellofemoral dysfunction of right knee History of multiple sclerosis (Chronic) Medical History Sepsis Cellulitis of right breast Difficulty walking 02/04/23-- states was seen at [facility] twice in the past week for diffculty ambulating Hx of upper gastrointestinal hemorrhage 12/2021 Hypoglycemia states normally runs very low History of COVID-19 06/2020- cough; resolved Anxiety Postgastric surgery syndrome Hx of peptic ulcer Migraine Surgical History History of esophagogastroduodenoscopy (EGD) Hx of tooth extraction Hx of tonsillectomy Hx of wisdom tooth extraction History of insertion of tunneled central venous catheter (CVC) with port History of liver biopsy Family History Other Diabetes Encounter for pre-operative examination Hypertension Social History Smoking Status: Never smoker Second Hand Exposure: No; Do You Dip or Chew Tobacco: No; Hx Alcohol Use: Yes Alcohol type: beer Alcohol type Comment: 6 beers approx every other day Hx Substance Use: No Preferred Language: Mohawk Communication Ability: Effective Sonar Watchstander Required: No Beliefs That Will Affect Care: None marital status: Single Current Living Situation: Parent Current Living Situation Comment: with parents current occupational status: unemployed and disabled current occupation: disabled 2/2 to MS dx at 18 Feels Safe at Home: Yes Assistive Devices: Wheelchair Allergies Allergies Allergy/AdvReac Type Severity Reaction Status Date / Time cephalexin Allergy Intermediate HIVES A Verified 04/07/23 00:26 SMALL CHILD Cephalosporins Allergy Intermediate Hives Verified 04/07/23 00:26 clindamycin Allergy Intermediate HIVES/HEART Verified 04/07/23 00:26 BURN hydrocodone Allergy Intermediate Itching Verified 04/07/23 00:26 methocarbamol Allergy Intermediate ITCHY RASH Verified 04/07/23 00:26 Sulfa (Sulfonamide Allergy Intermediate Hives Verified 04/07/23 00:26 Antibiotics) Home Meds Home Medications Medication Instructions Recorded Confirmed albuterol sulfate 2.5 mg/3 mL 2.5 mg inhalation Q4H PRN Wheezing 12/26/18 04/07/23 (0.083 %) solution for nebulization albuterol sulfate 90 mcg/actuation 2 puff inhalation Q4H PRN Wheezing 12/26/18 04/07/23 aerosol inhaler (ProAir HFA) cholecalciferol (vitamin D3) 125 5,000 unit PO QAM 12/26/18 04/07/23 mcg (5,000 unit) tablet (Vitamin D3) cholecalciferol (vitamin D3) 25 1,000 unit PO QAM 12/26/18 04/07/23 mcg (1,000 unit) capsule (Vitamin D3) cranberry 500 mg capsule 500 mg PO QAM 12/26/18 04/07/23 cyanocobalamin (vitamin B-12) 1,000 mcg IM MONTHLY 12/26/18 04/07/23 1,000 mcg/mL injection solution hydroxyzine HCl 10 mg tablet 10 mg PO HS PRN Anxiety 12/26/18 04/07/23 medroxyprogesterone 150 mg/mL 150 mg IM .EVERY 3 MONTHS 12/26/18 04/07/23 intramuscular suspension ocrelizumab 30 mg/mL intravenous 300 mg IV .[id number] 12/26/18 04/07/23 solution (Ocrevus) promethazine 25 mg tablet 25 mg PO Q6H PRN Nausea or Vomiting 12/26/18 04/07/23 rizatriptan 10 mg tablet 10 mg PO DIRECTED PRN Headache 12/26/18 04/07/23 topiramate 50 mg tablet 50 mg PO BID 12/26/18 04/07/23 loratadine 10 mg tablet 10 mg PO QAM 07/31/22 04/07/23 misoprostol 100 mcg tablet 100 mcg PO AMHS 07/31/22 04/07/23 omeprazole 40 mg capsule,delayed 40 mg PO AMHS 07/31/22 04/07/23 release pediatric multivitamin no.76 1 tab PO QAM 07/31/22 04/07/23 (Flintstones Complete chewable tablet) sucralfate 100 mg/mL oral 1 g PO AMHS 07/31/22 04/07/23 suspension ferrous sulfate 325 mg (65 mg 325 mg PO Q OTHER DAY 04/07/23 04/07/23 iron) tablet folic acid 1 mg tablet 1 mg PO DAILY 04/07/23 04/07/23 venlafaxine 50 mg tablet 50 mg PO BID 04/07/23 04/07/23 Results & Data (ED) Vital Signs Vital Signs - 24 hr 04/11/24 23:51 04/11/24 23:51 04/12/24 00:09 Temperature 36.8 C 36.4 C L Temperature Source Temporal Artery Scan Oral Pulse Rate 106 H 90 Pulse Rate [Right Finger] 89 Pulse Rhythm Regular Pulse Strength Normal Respiratory Rate 20 20 20 Respiratory Effort / Characteristics Non-Labored Spontaneous Non-Labored Spontaneous Respiratory Depth Normal Normal Respiratory Pattern Regular Regular Blood Pressure 102/58 L Blood Pressure [Right Arm] 129/84 Blood Pressure Mean 72 Blood Pressure Mean [Right Arm] 99 Blood Pressure Position Lying Blood Pressure Position [Right Arm] Sitting Pulse Oximetry 94 94 100 Oxygen Delivery Method Room Air Room Air Room Air Sepsis Recent Fever Within 48 Hours No Sepsis New/Unexplained Change in Mental Status No Sepsis Action Taken by Nursing No Action Required 04/12/24 00:12 04/12/24 01:55 04/12/24 03:00 Temperature Temperature Source Pulse Rate 93 H Pulse Rate [Right Finger] 100 H 100 H Pulse Rhythm Pulse Strength Respiratory Rate 20 19 Respiratory Effort / Characteristics Non-Labored Spontaneous Non-Labored Spontaneous Respiratory Depth Normal Normal Respiratory Pattern Regular Regular Blood Pressure Blood Pressure [Right Arm] 116/75 105/69 Blood Pressure Mean Blood Pressure Mean [Right Arm] 88 81 Blood Pressure Position Blood Pressure Position [Right Arm] Lying Lying Pulse Oximetry 100 100 Oxygen Delivery Method Room Air Room Air Sepsis Recent Fever Within 48 Hours Sepsis New/Unexplained Change in Mental Status Sepsis Action Taken by Nursing 04/12/24 04:09 Temperature Temperature Source Pulse Rate 105 H Pulse Rate [Right Finger] Pulse Rhythm Pulse Strength Respiratory Rate Respiratory Effort / Characteristics Respiratory Depth Respiratory Pattern Blood Pressure Blood Pressure [Right Arm] Blood Pressure Mean Blood Pressure Mean [Right Arm] Blood Pressure Position Blood Pressure Position [Right Arm] Pulse Oximetry Oxygen Delivery Method Sepsis Recent Fever Within 48 Hours Sepsis New/Unexplained Change in Mental Status Sepsis Action Taken by Nursing Laboratory Data 04/12/24 00:09 04/12/24 00:09 Lab Results 04/12/24 Range/Units 00:09 WBC 4.53 L (4.8-10.8) K/ul RBC 3.03 L (4.20-5.40) M/uL Hgb 7.8 L (12.0-16.0) g/dl Hct 25.0 L (37.0-47.0) % MCV 82.5 (80.0-100.0) fL MCH 25.7 (25.0-34.0) pg MCHC 31.2 L (32.0-36.0) g/dL RDW Std Deviation 49.7 H (36.4-46.3) fL RDW Coeff of [place] 16.7 H (11.5-14.5) % Plt Count 275 (130-400) K/uL MPV 9.0 L (9.4-12.4) fL Immature Gran % (Auto) 0.2 % Neut % (Auto) 35.0 % Lymph % (Auto) 42.2 % [place] % (Auto) 18.8 % Eos % (Auto) 2.9 % Baso % (Auto) 0.9 % Neut # (Auto) 1.59 (1.40-6.50) K/uL Lymph # (Auto) 1.91 (1.20-3.40) K/uL [place] # (Auto) 0.85 H (0.11-0.59) K/uL Eos # (Auto) 0.13 (0.00-0.50) K/uL Baso # (Auto) 0.04 (0.00-0.20) K/uL Immature Gran # (Auto) 0.01 (0.01-0.20) K/uL Hypochromasia Present Sodium 124 L (136-145) mmol/L Potassium 3.6 (3.5-5.1) mmol/L Chloride 95 L (98-107) mmol/L Carbon Dioxide 18 L (21-32) mmol/L Anion Gap 11 (3-11) BUN < 2 L (6-23) mg/dl Creatinine 0.37 L (0.6-1.2) mg/dl Est Cr Clr Drug Dosing 268.6 ml/min eGFR 135.63 BUN/Creatinine Ratio TNP Glucose 95 (70-99(Fasting)) mg/dl Calcium 7.9 L (8.6-10.3) mg/dl Total Bilirubin 0.4 (0.2-1.0) mg/dl AST 34 (13-39) U/L ALT 16 (7-52) U/L Alkaline Phosphatase 199 H (34-104) U/L Total Protein 5.9 L (6.0-8.3) gm/dl Albumin 3.3 L (3.4-5.0) gm/dl Globulin 2.6 (2.5-4.0) gm/dl Albumin/Globulin Ratio 1.3 (0.9-2) Administered Medications Discontinued Medications Ioversol (Optiray 320 125ml) 117 ml IV ONCE ONE Stop: 04/12/24 01:35 Last Admin: 04/12/24 01:34 Dose: 117 ml Documented By: GES Imaging Data Radiologist's Impression: Head CTA 04/12/24 00:22 EXAM: CT angio head wo/w CLINICAL HISTORY: l leg pain 117 cc opti 320 TECHNIQUE: Contrast enhanced thin slice CT angiography scan of the cerebral vessels was performed without and with intravenous contrast. Angiographic images were processed, 3D MIP images were acquired for interpretation. Contiguous axial images were obtained. Reformatted coronal and sagittal images were also reviewed. If IV contrast material had not been administered, the likelihood of detecting abnormalities relevant to the patients condition would have been substantially decreased. CT scan was performed according to ALARA (as low as reasonable achievable). COMPARISON: None. FINDINGS: Bilateral internal carotid arteries show normal course, calibre and opacification in the canalicular and cavernous part. Their division into the anterior cerebral artery and middle cerebral artery is defined. A1, A2 and M1, M2 segments are normal on both the sides. Bilateral vertebral arteries are seen to unite the form the basilar artery in a normal fashion. Basilar artery shows normal course, caliber and opacification. Its division into the posterior cerebral arteries is defined. Bilateral P1 and P2 segments are normal. Visualized venous structures show normal opacification. No evidence of intracranial aneurysm or AV malformation is seen. Incidental note is made of circumferential mucosal thickening in the right maxillary sinus. IMPRESSION: 1. No evidence of stenosis or aneurysm. No evidence of dissection. Electronically signed by Akbar Vidal 04-12-2024 03:25 AM Neck CTA 04/12/24 00:22 EXAM: CT angio neck with con CLINICAL HISTORY: l leg pain 117 cc opti 320 TECHNIQUE: Contrast enhanced thin slice CT angiography scan of the carotid vessels was performed with intravenous contrast. Angiographic images were processed, 3D MIP images were acquired for interpretation. Contiguous axial images were obtained. Reformatted coronal and sagittal images were also reviewed. If IV contrast material had not been administered, the likelihood of detecting abnormalities relevant to the patients condition would have been substantially decreased. CT scan was performed according to ALARA (as low as reasonable achievable). COMPARISON: Prior scan dated December,. FINDINGS: Included great vessels of the aortic arch are grossly unremarkable. Common carotid artery, carotid Bulb, internal carotid artery, and origin of the external carotid artery are well opacified. Vertebral arteries are well opacified. Jugular veins are well opacified. Circumferential mucosal thickening is noted in the right maxillary sinus. Degenerative changes are noted in the visualized cervical spine. Included lung apices are grossly unremarkable. Thyroid gland appears unremarkable. IMPRESSION: 1. No evidence of stenosis or aneurysm. No evidence of dissection. Electronically signed by Akbar Vidal 04-12-2024 03:17 AM Venous Doppler Study 04/12/24 00:22 EXAM: US venous doppler LE LT CLINICAL HISTORY: Pt has Hx of MS, LLE pain No definite DVT detected in LLE TECHNIQUE: Ultrasound examination of left lower extremity veins was performed in real-time and duplex. One or more of the following were performed- spectral analysis, resistive index, waveform analysis, and pulsed Doppler. COMPARISON: 04/07/2023. FINDINGS: Normal phasic, non-pulsatile and spontaneous flow is noted in left common femoral, superficial femoral, popliteal, posterior and anterior tibial and peroneal veins. Visualized veins of left lower extremity demonstrate normal compressibility. No sonographic evidence of acute deep vein thrombosis (DVT) is detected in the visualized veins of lower extremity. Compression and Augmentation: All evaluated veins compress fully with applied transducer pressure. Augmentation of venous flow is noted with distal compression. Additional Findings: No evidence of intraluminal thrombus. IMPRESSION: 1. No sonographic evidence of acute DVT was detected at the time of examination. 2. No significant interval changes compared to prior study dated on 04/07/2023. Disclaimer: DVT could be missed early in the disease when clot burden is minimal. For patients with moderate and high pretest probability of DVT and negative ultrasound, the [place] [employer] clinical guidelines recommend testing with a D-dimer assay or repeat ultrasound in 5-7 days. If symptoms worsen, the Society of radiologists in ultrasound recommends repeating ultrasound even earlier. Electronically signed by Ryann Galeas 04-12-2024 03:42 AM Discharge Plan Visit Data Chief Complaint: Leg Injury/Pain Stated Complaint: LEFT LEG PAIN ED Provider: Tate Trevino Discharge Problem: Acute hyponatremia, Anemia, Acute leg pain Forms Stand Alone Forms: [employer] Prescriptions Prescriptions: No Action cyanocobalamin (vitamin B-12) 1,000 mcg/mL Solution 1,000 mcg IM MONTHLY hydroxyzine HCl 10 mg tablet 10 mg PO HS PRN (Reason: Anxiety) medroxyprogesterone 150 mg/mL suspension 150 mg IM .EVERY 3 MONTHS cranberry 500 mg Capsule 500 mg PO QAM cholecalciferol (vitamin D3) [Vitamin D3] 1,000 unit Capsule 1,000 unit PO QAM Rx Instructions: TOTAL DOSE 6,000 UNITS--TAKES WITH 5,000 UNIT CAP. topiramate 50 mg tablet 50 mg PO BID cholecalciferol (vitamin D3) [Vitamin D3] 5,000 unit Tablet 5,000 unit PO QAM Rx Instructions: TOTAL DOSE 6,000 UNITS--TAKES WITH 1,000 UNIT CAP. rizatriptan 10 mg tablet 10 mg PO DIRECTED PRN (Reason: Headache) Rx Instructions: TAKE ONE TABLET AT ONSET OF HEADACHE MAY REPEAT DOSE IN 2 HOURS IF NEEDED Ocrevus 30 mg/mL Solution 300 mg IV .[id number] albuterol sulfate 2.5 mg /3 mL (0.083 %) Solution For Nebulization 2.5 mg INHALATION Q4H PRN (Reason: Wheezing) albuterol sulfate [ProAir HFA] 90 mcg/actuation Hfa Aerosol Inhaler 2 puff INHALATION Q4H PRN (Reason: Wheezing) promethazine 25 mg Tablet 25 mg PO Q6H PRN (Reason: Nausea or Vomiting) omeprazole 40 mg capsule,delayed release(DR/EC) 40 mg PO AMHS misoprostol 100 mcg tablet 100 mcg PO AMHS sucralfate 100 mg/mL suspension 1 g PO AMHS loratadine 10 mg Tablet 10 mg PO QAM Flintstones Complete Tablet,Chewable 1 tab PO QAM ferrous sulfate 325 mg (65 mg iron) Tablet 325 mg PO Q OTHER DAY venlafaxine [Effexor] 50 mg Tablet 50 mg PO BID Rx Instructions: PER GMG folic acid 1 mg Tablet 1 mg PO DAILY Referrals Referrals: Kimberly Figueroa MD [Primary Care Provider] - Discharge Problem: Anemia Qualifiers: Anemia type: unspecified type Qualified Code(s): D64.9 - Anemia, unspecified Acute leg pain Qualifiers: Laterality: left Qualified Code(s): M79.605 - Pain in left leg
[2024-04-12] MEDS: OPTIRAY 320 125ml IV ONE (01:34)
[2024-04-12 01:36] LABS: Basophils # (auto) 0.04 K/uL (0.00-0.20); Basophils % (auto) 0.9 %; Eosinophils # (auto) 0.13 K/uL (0.00-0.50); Eosinophils % (auto) 2.9 %; Hemoglobin 7.8 g/dl (12.0-16.0); Immature Granulocytes # (auto) 0.01 K/uL (0.01-0.20); Immature Granulocytes % (auto) 0.2 %; Lymphocytes # (auto) 1.91 K/uL (1.20-3.40); Lymphocytes % (auto) 42.2 %; Mean Corpuscular Hemoglobin 25.7 pg (25.0-34.0); Mean Corpuscular Hgb Conc 31.2 g/dL (32.0-36.0); Mean Corpuscular Volume 82.5 fL (80.0-100.0); Monocytes # (auto) 0.85 K/uL (0.11-0.59); Monocytes % (auto) 18.8 %; Neutrophils # (auto) 1.59 K/uL (1.40-6.50); Platelet Count 275 K/uL (130-400); RDW Coefficient of Variation 16.7 % (11.5-14.5); RDW Standard Deviation 49.7 fL (36.4-46.3); Red Blood Count 3.03 M/uL (4.20-5.40); White Blood Count 4.53 K/ul (4.8-10.8)
[2024-04-12 01:45] LABS: Albumin Level 3.3 gm/dl (3.4-5.0); Anion Gap 11 (3-11); Bilirubin,Total 0.4 mg/dl (0.2-1.0); Calcium 7.9 mg/dl (8.6-10.3); Carbon Dioxide 18 mmol/L (21-32); Chloride 95 mmol/L (98-107); Potassium 3.6 mmol/L (3.5-5.1); Sodium 124 mmol/L (136-145)
[2024-04-12 01:57] LABS: Hypochromasia Present
[2024-04-12 02:04] LABS: Alanine Aminotransferase 16 U/L (7-52); Albumin Globulin Ratio 1.3 (0.9-2); Alkaline Phosphatase 199 U/L (34-104); Aspartate Aminotransferase 34 U/L (13-39); Blood Urea Nitrogen < 2 mg/dl (6-23); Creatinine Clr Calc Pharmacy 268.6 ml/min; Globulin 2.6 gm/dl (2.5-4.0); Glucose 95 mg/dl (70-99(Fasting)); Total Protein 5.9 gm/dl (6.0-8.3)
--- NOTE | 2024-04-12 03:18 | CT Scan Report ---
EXAM: CT angio neck with con CLINICAL HISTORY: l leg pain 117 cc opti 320 TECHNIQUE: Contrast enhanced thin slice CT angiography scan of the carotid vessels was performed with intravenous contrast. Angiographic images were processed, 3D MIP images were acquired for interpretation. Contiguous axial images were obtained. Reformatted coronal and sagittal images were also reviewed. If IV contrast material had not been administered, the likelihood of detecting abnormalities relevant to the patients condition would have been substantially decreased. CT scan was performed according to ALARA (as low as reasonable achievable). COMPARISON: Prior scan dated December,. FINDINGS: Included great vessels of the aortic arch are grossly unremarkable. Common carotid artery, carotid Bulb, internal carotid artery, and origin of the external carotid artery are well opacified. Vertebral arteries are well opacified. Jugular veins are well opacified. Circumferential mucosal thickening is noted in the right maxillary sinus. Degenerative changes are noted in the visualized cervical spine. Included lung apices are grossly unremarkable. Thyroid gland appears unremarkable. IMPRESSION: 1. No evidence of stenosis or aneurysm. No evidence of dissection. Electronically signed by Akbar Vidal 04-12-2024 03:17 AM
--- NOTE | 2024-04-12 03:26 | CT Scan Report ---
EXAM: CT angio head wo/w CLINICAL HISTORY: l leg pain 117 cc opti 320 TECHNIQUE: Contrast enhanced thin slice CT angiography scan of the cerebral vessels was performed without and with intravenous contrast. Angiographic images were processed, 3D MIP images were acquired for interpretation. Contiguous axial images were obtained. Reformatted coronal and sagittal images were also reviewed. If IV contrast material had not been administered, the likelihood of detecting abnormalities relevant to the patients condition would have been substantially decreased. CT scan was performed according to ALARA (as low as reasonable achievable). COMPARISON: None. FINDINGS: Bilateral internal carotid arteries show normal course, calibre and opacification in the canalicular and cavernous part. Their division into the anterior cerebral artery and middle cerebral artery is defined. A1, A2 and M1, M2 segments are normal on both the sides. Bilateral vertebral arteries are seen to unite the form the basilar artery in a normal fashion. Basilar artery shows normal course, caliber and opacification. Its division into the posterior cerebral arteries is defined. Bilateral P1 and P2 segments are normal. Visualized venous structures show normal opacification. No evidence of intracranial aneurysm or AV malformation is seen. Incidental note is made of circumferential mucosal thickening in the right maxillary sinus. IMPRESSION: 1. No evidence of stenosis or aneurysm. No evidence of dissection. Electronically signed by Akbar Vidal 04-12-2024 03:25 AM
--- NOTE | 2024-04-12 03:43 | Ultrasound Report ---
EXAM: US venous doppler LE LT CLINICAL HISTORY: Pt has Hx of MS, LLE pain No definite DVT detected in LLE TECHNIQUE: Ultrasound examination of left lower extremity veins was performed in real-time and duplex. One or more of the following were performed- spectral analysis, resistive index, waveform analysis, and pulsed Doppler. COMPARISON: 04/07/2023. FINDINGS: Normal phasic, non-pulsatile and spontaneous flow is noted in left common femoral, superficial femoral, popliteal, posterior and anterior tibial and peroneal veins. Visualized veins of left lower extremity demonstrate normal compressibility. No sonographic evidence of acute deep vein thrombosis (DVT) is detected in the visualized veins of lower extremity. Compression and Augmentation: All evaluated veins compress fully with applied transducer pressure. Augmentation of venous flow is noted with distal compression. Additional Findings: No evidence of intraluminal thrombus. IMPRESSION: 1. No sonographic evidence of acute DVT was detected at the time of examination. 2. No significant interval changes compared to prior study dated on 04/07/2023. Disclaimer: DVT could be missed early in the disease when clot burden is minimal. For patients with moderate and high pretest probability of DVT and negative ultrasound, the [place] clinical guidelines recommend testing with a D-dimer assay or repeat ultrasound in 5-7 days. If symptoms worsen, the Society of radiologists in ultrasound recommends repeating ultrasound even earlier. Electronically signed by yRann Galeas 04-12-2024 03:42 AM
[2024-04-12] MEDS: THIAMINE HCL 100 MG in SYRINGE 9 ML IV STA (06:30)
--- NOTE | 2024-04-12 06:32 | History & Physical Report ---
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 Patient states since last 2- 3 days she is having pain in the left left leg below knee region. Pain is 5/10 in severity while resting and more while ambulating. She was able to ambulate okay. States her legs are always weak from her MS.Denies any fevers. No back pain. Denies any headache. No blurred vision. No runny nose or sore throat. No cough. Appetite is okay. No chest pain or shortness of breath. No nausea. No abdominal pain. Normal bowel and bladder movements. Patient states she also drinks 3 beers every day. Currently resting comfortably and hemodynamic stable. Acute leg pain Left leg pain below knee Doppler is unremarkable Legs are always weak from MS ER did a CTA of the head and neck which were unremarkable Pain control Because of MS will consult neurology Will monitor Hyponatremia Sodium of 124 Usually sodium 133 range Drinks 3 beers daily Will check urine osmolality, serum osmolality and urine sodium levels BMP every 6 hours Fluid restriction for now Nephrology consult for further recommendation History of MS On ocrelizumab and says she is doing okay Asthma Continue home inhalers Depression on Zoloft Anemia Chronic Patient states she is supposed to get iron next week Will monitor DVT prophylaxis Lovenox. f/u h and h Disposition Med/telemetry Full code. 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 Patient states since last 2- 3 days she is having pain in the left left leg below knee region. Pain is 5/10 in severity while resting and more while ambulating. She was able to ambulate okay. States her legs are always weak from her MS.Denies any fevers. No back pain. Denies any headache. No blurred vision. No runny nose or sore throat. No cough. Appetite is okay. No chest pain or shortness of breath. No nausea. No abdominal pain. Normal bowel and bladder movements. Patient states she also drinks 3 beers every day. Currently resting comfortably and hemodynamic stable. Past medical history. As mentioned above Past surgical history. EGD. EGD with trans endoscopic dilatation. Gastric revision for obesity. Laparoscopic cholecystectomy. Maxillary sinus endoscopy. Nasal endoscopy. Tonsillectomy. Repair of nasal septum. Stereotactic cranial extradural navigation. Wedge biopsy of liver. Social history. No smoking. Drinks alcohol 3 beers daily. No drug use. Family history. Father had arthritis. Hypertension. Obesity. Mother has obesity. Arthritis. Migraines. Paternal grandfather had diabetes hypertension heart disorder. Paternal grandmother had diabetes. Allergies Allergy/AdvReac Type Severity Reaction Status Date / Time cephalexin Allergy Intermediate HIVES A Verified 04/07/23 00:26 SMALL CHILD Cephalosporins Allergy Intermediate Hives Verified 04/07/23 00:26 clindamycin Allergy Intermediate HIVES/HEART Verified 04/07/23 00:26 BURN hydrocodone Allergy Intermediate Itching Verified 04/07/23 00:26 methocarbamol Allergy Intermediate ITCHY RASH Verified 04/07/23 00:26 Sulfa (Sulfonamide Allergy Intermediate Hives Verified 04/07/23 00:26 Antibiotics) Home Medications Medication Instructions Recorded Confirmed Type albuterol sulfate 90 mcg/actuation 2 inh inhalation Q4H PRN sob 04/12/24 04/12/24 History aerosol inhaler dupilumab 300 mg/2 mL subcutaneous 300 mg subcut UD 04/12/24 04/12/24 History pen injector ([email or web address]) epinephrine 0.3 mg/0.3 mL 0.3 mg IM UD PRN severe allergic 04/12/24 04/12/24 History injection, auto-injector reaction folic acid 1 mg tablet 2 mg PO DAILY 04/12/24 04/12/24 History hydroxyzine pamoate 25 mg capsule 25 mg PO TID PRN Anxiety 04/12/24 04/12/24 History ocrelizumab 30 mg/mL intravenous 1 mg IV UD 04/12/24 04/12/24 History solution sertraline 100 mg tablet 100 mg PO DAILY 04/12/24 04/12/24 History sucralfate 100 mg/mL oral 10 ml PO BID 04/12/24 04/12/24 History suspension Past Med/Surg History Problem List (Updated 04/12/24 @ 03:26 by Tate Trevino DO) Acute leg pain (Acute) Anemia (Acute) Acute hyponatremia (Acute) Subclavian vein stenosis, left Cellulitis Abdominal pain (Acute) Abdominal pain (Acute) Alcoholic intoxication (Acute) Knee contusion (Acute) Alcoholic intoxication (Acute) Asthma exacerbation (Acute) Left pulmonary infiltrate on CXR (Acute) Influenza (Acute) IV infusion line dysfunction (Acute) Arm pain, left (Acute) Hematoma of left lower extremity (Acute) Hematoma of left lower extremity (Acute) Leg pain, left (Acute) Abdominal pain (Acute) Diarrhea (Acute) Hypokalemia (Acute) Multiple sclerosis Neck pain (Acute) Numbness (Acute) Pain of left upper extremity (Acute) Postoperative edema (Acute) Right shoulder pain (Acute) Vomiting (Acute) Gastric bypass status for obesity Facial droop (Acute) History of multiple sclerosis (Acute) Right arm numbness (Acute) History of deep venous thrombosis (Acute) Right knee pain Injury of meniscus of right knee Anemia Alcohol abuse Alcohol use (Acute) Bilateral leg weakness (Acute) Fall (Acute) History of gastric bypass Depression Iron deficiency anemia Obesity S/P surgery on nasal septum Patellofemoral dysfunction of right knee History of multiple sclerosis (Chronic) Medical History Sepsis Cellulitis of right breast Difficulty walking 02/04/23-- states was seen at [facility] ER twice in the past week for diffculty ambulating Hx of upper gastrointestinal hemorrhage 12/2021 Hypoglycemia states normally runs very low History of COVID-19 06/2020- cough; resolved Anxiety Postgastric surgery syndrome Hx of peptic ulcer Migraine Surgical History History of esophagogastroduodenoscopy (EGD) Hx of tooth extraction Hx of tonsillectomy Hx of wisdom tooth extraction History of insertion of tunneled central venous catheter (CVC) with port History of liver biopsy Family History Other Diabetes Encounter for pre-operative examination Hypertension Social History Smoking Status: Never smoker Second Hand Exposure: No; Do You Dip or Chew Tobacco: No; Hx Alcohol Use: Yes Alcohol type: beer Alcohol type Comment: 6 beers approx every other day Hx Substance Use: No Preferred Language: Ecuadorean 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 ENT- oropharynx clear Neck- supple, no JVD. Lungs- clear to auscultation no wheezing or crackles. Heart- regular rhythm; no murmur, no gallop. Abdomen- normal bowel sounds, soft, nontender, no distension Extremities- no pretibial edema, no erythema seen, left leg warm on palpation an sensations and power intact Neuro- alert, oriented PERRL, no facial palsy; no dysarthria; moves extremities Results & Data Results & Data Vital Signs (Past 12 Hours) Vital Signs Temp Pulse Pulse Resp BP BP Pulse Ox 04/12/24 04:09 105 H 04/12/24 03:00 100 H 19 105/69 100 04/12/24 01:55 100 H 20 116/75 100 04/12/24 00:12 93 H 12/08/24 00:09 90 20 100 04/11/24 23:51 36.4 C L 89 20 129/84 94 04/11/24 23:51 36.8 C 106 H 20 102/58 L 94 O2 Del Method 04/12/24 04:09 04/12/24 03:00 Room Air 04/12/24 01:55 Room Air 04/12/24 00:12 04/12/24 00:09 Room Air 04/11/24 23:51 Room Air 04/11/24 23:51 Room Air Diagnostic Findings Laboratory Results WBC 4.53 K/ul (4.8-10.8) L 04/12/24 00:09 RBC 3.03 M/uL (4.20-5.40) L 04/12/24 00:09 Hgb 7.8 g/dl (12.0-16.0) L 04/12/24 00:09 Hct 25.0 % (37.0-47.0) L 04/12/24 00:09 MCV 82.5 fL (80.0-100.0) 04/12/24 00:09 MCH 25.7 pg (25.0-34.0) 04/12/24 00:09 MCHC 31.2 g/dL (32.0-36.0) L 04/12/24 00:09 RDW Std Deviation 49.7 fL (36.4-46.3) H 04/12/24 00:09 RDW Coeff of [place] 16.7 % (11.5-14.5) H 04/12/24 00:09 Plt Count 275 K/uL (130-400) 04/12/24 00:09 MPV 9.0 fL (9.4-12.4) L 04/12/24 00:09 Immature Gran % (Auto) 0.2 % 04/12/24 00:09 Neut % (Auto) 35.0 % 04/12/24 00:09 Lymph % (Auto) 42.2 % 04/12/24 00:09 [place] % (Auto) 18.8 % 04/12/24 00:09 Eos % (Auto) 2.9 % 04/12/24 00:09 Baso % (Auto) 0.9 % 04/12/24 00:09 Neut # (Auto) 1.59 K/uL (1.40-6.50) 04/12/24 00:09 Lymph # (Auto) 1.91 K/uL (1.20-3.40) 04/12/24 00:09 [place] # (Auto) 0.85 K/uL (0.11-0.59) H 04/12/24 00:09 Eos # (Auto) 0.13 K/uL (0.00-0.50) 04/12/24 00:09 Baso # (Auto) 0.04 K/uL (0.00-0.20) 04/12/24 00:09 Immature Gran # (Auto) 0.01 K/uL (0.01-0.20) 04/12/24 00:09 Hypochromasia Present 04/12/24 00:09 Sodium 124 mmol/L (136-145) L 04/12/24 00:09 Potassium 3.6 mmol/L (3.5-5.1) 04/12/24 00:09 Chloride 95 mmol/L (98-107) L 04/12/24 00:09 Carbon Dioxide 18 mmol/L (21-32) L 04/12/24 00:09 Anion Gap 11 (3-11) 04/12/24 00:09 BUN < 2 mg/dl (6-23) L 04/12/24 00:09 Creatinine 0.37 mg/dl (0.6-1.2) L 04/12/24 00:09 Est Cr Clr Drug Dosing 268.6 ml/min 04/12/24 00:09 eGFR 135.63 04/12/24 00:09 BUN/Creatinine Ratio TNP 04/12/24 00:09 Glucose 95 mg/dl (70-99(Fasting)) 04/12/24 00:09 Calcium 7.9 mg/dl (8.6-10.3) L 04/12/24 00:09 Total Bilirubin 0.4 mg/dl (0.2-1.0) 04/12/24 00:09 AST 34 U/L (13-39) 04/12/24 00:09 ALT 16 U/L (7-52) 04/12/24 00:09 Alkaline Phosphatase 199 U/L (34-104) H 04/12/24 00:09 Total Protein 5.9 gm/dl (6.0-8.3) L 04/12/24 00:09 Albumin 3.3 gm/dl (3.4-5.0) L 04/12/24 00:09 Globulin 2.6 gm/dl (2.5-4.0) 04/12/24 00:09 Albumin/Globulin Ratio 1.3 (0.9-2) 04/12/24 00:09 Impressions Head CTA 04/12/24 00:22 EXAM: CT angio head wo/w CLINICAL HISTORY: l leg pain 117 cc opti 320 TECHNIQUE: Contrast enhanced thin slice CT angiography scan of the cerebral vessels was performed without and with intravenous contrast. Angiographic images were processed, 3D MIP images were acquired for interpretation. Contiguous axial images were obtained. Reformatted coronal and sagittal images were also reviewed. If IV contrast material had not been administered, the likelihood of detecting abnormalities relevant to the patients condition would have been substantially decreased. CT scan was performed according to ALARA (as low as reasonable achievable). COMPARISON: None. FINDINGS: Bilateral internal carotid arteries show normal course, calibre and opacification in the canalicular and cavernous part. Their division into the anterior cerebral artery and middle cerebral artery is defined. A1, A2 and M1, M2 segments are normal on both the sides. Bilateral vertebral arteries are seen to unite the form the basilar artery in a normal fashion. Basilar artery shows normal course, caliber and opacification. Its division into the posterior cerebral arteries is defined. Bilateral P1 and P2 segments are normal. Visualized venous structures show normal opacification. No evidence of intracranial aneurysm or AV malformation is seen. Incidental note is made of circumferential mucosal thickening in the right maxillary sinus. IMPRESSION: 1. No evidence of stenosis or aneurysm. No evidence of dissection. Electronically signed by Akbar Vidal 04-12-2024 03:25 AM Neck CTA 04/12/24 00:22 EXAM: CT angio neck with con CLINICAL HISTORY: l leg pain 117 cc opti 320 TECHNIQUE: Contrast enhanced thin slice CT angiography scan of the carotid vessels was performed with intravenous contrast. Angiographic images were processed, 3D MIP images were acquired for interpretation. Contiguous axial images were obtained. Reformatted coronal and sagittal images were also reviewed. If IV contrast material had not been administered, the likelihood of detecting abnormalities relevant to the patients condition would have been substantially decreased. CT scan was performed according to ALARA (as low as reasonable achievable). COMPARISON: Prior scan dated December,. FINDINGS: Included great vessels of the aortic arch are grossly unremarkable. Common carotid artery, carotid Bulb, internal carotid artery, and origin of the external carotid artery are well opacified. Vertebral arteries are well opacified. Jugular veins are well opacified. Circumferential mucosal thickening is noted in the right maxillary sinus. Degenerative changes are noted in the visualized cervical spine. Included lung apices are grossly unremarkable. Thyroid gland appears unremarkable. IMPRESSION: 1. No evidence of stenosis or aneurysm. No evidence of dissection. Electronically signed by Akbar Vidal 04-12-2024 03:17 AM Venous Doppler Study 04/12/24 00:22 EXAM: US venous doppler LE LT CLINICAL HISTORY: Pt has Hx of MS, LLE pain No definite DVT detected in LLE TECHNIQUE: Ultrasound examination of left lower extremity veins was performed in real-time and duplex. One or more of the following were performed- spectral analysis, resistive index, waveform analysis, and pulsed Doppler. COMPARISON: 04/07/2023. FINDINGS: Normal phasic, non-pulsatile and spontaneous flow is noted in left common femoral, superficial femoral, popliteal, posterior and anterior tibial and peroneal veins. Visualized veins of left lower extremity demonstrate normal compressibility. No sonographic evidence of acute deep vein thrombosis (DVT) is detected in the visualized veins of lower extremity. Compression and Augmentation: All evaluated veins compress fully with applied transducer pressure. Augmentation of venous flow is noted with distal compression. Additional Findings: No evidence of intraluminal thrombus. IMPRESSION: 1. No sonographic evidence of acute DVT was detected at the time of examination. 2. No significant interval changes compared to prior study dated on 04/07/2023. Disclaimer: DVT could be missed early in the disease when clot burden is minimal. For patients with moderate and high pretest probability of DVT and negative ultrasound, the [place] [employer] clinical guidelines recommend testing with a D-dimer assay or repeat ultrasound in 5-7 days. If symptoms worsen, the Society of radiologists in ultrasound recommends repeating ultrasound even earlier. Electronically signed by Ryann Galeas 04-12-2024 03:42 AM Code Status & VTE Plan VTE Prophylaxis Plan VTE Prophylaxis will be ordered: Yes (1) Acute leg pain Laterality: left Qualified Code(s): M79.605 - Pain in left leg
[2024-04-12 07:08] LABS: iSTAT Blood Urea Nitrogen < 3 mg/dl (7-18); iSTAT Carbon Dioxide 15 mmol/L (24-31); iSTAT Chloride 94 mmol/L (101-112); iSTAT Creatinine 0.8 mg/dl (0.6-1.3); iSTAT Glucose 91 mg/dl (70-99); iSTAT Hematocrit 27 % (37-47); iSTAT Hemoglobin 9.2 g/dl (12.0-16.0); iSTAT Ionized Calcium 0.98 mmol/l (1.12-1.32); iSTAT Potassium 3.6 mmol/L (3.3-5.0); iSTAT Sodium 123 mmol/L (135-144)
[2024-04-12] MEDS ORDERED: Ativan IV Alcohol Withdrawal--Active Protocol IV PRN (08:22)
[2024-04-12] MEDS ORDERED: ALBUTEROL HFA 8 GM INHALER INH PRN (08:22)
[2024-04-12] MEDS ORDERED: POLYETHYLENE (MIRALAX) 17 GM PACK PO PRN (08:22)
[2024-04-12] MEDS ORDERED: GABAPENTIN 1200MG ALCOHOL WITHDRAWAL LOAD PO STA (08:22)
[2024-04-12] MEDS ORDERED: EPINEPHrine INJ 1 MG/ML AMP IM PRN (08:22)
[2024-04-12] MEDS ORDERED: hydrOXYzine HCl 25 MG TAB PO PRN (08:22)
[2024-04-12] MEDS ORDERED: LORazepam 2 MG/1 ML VIAL IV PRN ×3 (08:22)
--- NOTE | 2024-04-12 09:19 | Neurology Consultation ---
Date of Consultation April 12, 2024 Assessment & Plan (1) Acute leg pain: Shaunna Jerome is a 33 yo F presenting with LLE pain in the setting of MS. Suspect this is secondary to spasticity as other structural causes have been evaluated. I offered to recommend restarting her flexeril or trial of baclofen b ut she prefers to wait. -- Recommend discharge so she can make her appointment with Dr. Swift tomorrow Telehealth Consultation Telehealth Information Telehealth Information: I performed this visit using a real-time telehealth connection between my location and the patients location ([facility]). After connecting through interactive tele-video, patient was identified by name and date of and/or wristband check.Patient (or authorized healthcare education courses sales representative) was informed that this was a telemedicine visit and it was being conducted confidentially over secure lines. My office door was closed and no one else was present in the room with me.Patient (or authorized healthcare education courses sales representative) provided consent to proceed with the visit, expressed an understanding of privacy and security of the telemedicine visit, and gave permission to have a hospital education courses sales representative in the room in order to assist with the visit and to conduct portions of the visit, as needed. I informed the patient (or authorized healthcare education courses sales representative) that I reviewed their record and presented the opportunity for them to ask any questions regarding the visit today. The patient agreed to participate. History of Present Illness Reason for Consultation: Leg pain Requesting Physician: Dr. De Los Santos Attending Physician: Ozzie De Los Santos MD History of Present Illness Shaunna Jerome is a 33 yo F presenting with LLE pain in the anterior lower leg. She describes cramping and needs to keep the leg stretched or it will lock up. She had been on flexeril in the past but it was discontinued for unknown reasons. She notes that her L side is the most affected side from her MS. She has an appointment with Dr. Swift tomorrow at [facility]. Allergies Allergy/AdvReac Type Severity Reaction Status Date / Time cephalexin Allergy Intermediate HIVES A Verified 04/07/23 00:26 SMALL CHILD Cephalosporins Allergy Intermediate Hives Verified 04/07/23 00:26 clindamycin Allergy Intermediate HIVES/HEART Verified 04/07/23 00:26 BURN hydrocodone Allergy Intermediate Itching Verified 04/07/23 00:26 methocarbamol Allergy Intermediate ITCHY RASH Verified 04/07/23 00:26 Sulfa (Sulfonamide Allergy Intermediate Hives Verified 04/07/23 00:26 Antibiotics) Home Medications Medication Instructions Recorded Confirmed Type albuterol sulfate 90 mcg/actuation 2 inh inhalation Q4H PRN sob 04/12/24 04/12/24 History aerosol inhaler dupilumab 300 mg/2 mL subcutaneous 300 mg subcut UD 04/12/24 04/12/24 History pen injector (Dupixent) epinephrine 0.3 mg/0.3 mL 0.3 mg IM UD PRN severe allergic 04/12/24 04/12/24 History injection, auto-injector reaction folic acid 1 mg tablet 2 mg PO DAILY 04/12/24 04/12/24 History hydroxyzine pamoate 25 mg capsule 25 mg PO TID PRN Anxiety 04/12/24 04/12/24 History ocrelizumab 30 mg/mL intravenous 1 mg IV UD 04/12/24 04/12/24 History solution sertraline 100 mg tablet 100 mg PO DAILY 04/12/24 04/12/24 History sucralfate 100 mg/mL oral 10 ml PO BID 04/12/24 04/12/24 History suspension Patient History Medical History Sepsis Cellulitis of right breast Difficulty walking 02/04/23-- states was seen at [facility] ER twice in the past week for diffculty ambulating Hx of upper gastrointestinal hemorrhage 12/2021 Hypoglycemia states normally runs very low History of COVID-19 06/2020- cough; resolved Anxiety Postgastric surgery syndrome Hx of peptic ulcer Migraine Surgical History History of esophagogastroduodenoscopy (EGD) Hx of tooth extraction Hx of tonsillectomy Hx of wisdom tooth extraction History of insertion of tunneled central venous catheter (CVC) with port History of liver biopsy Family History Other Diabetes Encounter for pre-operative examination Hypertension Social History Smoking Status: Never smoker Second Hand Exposure: No; Do You Dip or Chew Tobacco: No; Hx Alcohol Use: Yes Alcohol type: beer Alcohol type Comment: 6 beers approx every other day Hx Substance Use: No Preferred Language: Thai Communication Ability: Effective Theater Teacher Required: No Beliefs That Will Affect Care: None marital status: Single Current Living Situation: Parent Current Living Situation Comment: with parents current occupational status: unemployed and disabled current occupation: disabled 2/2 to MS dx at 18 Feels Safe at Home: Yes Assistive Devices: Wheelchair Review of Systems +LLE pain Physical Exam Neurological Examination: Mental Status: Awake and alert. Oriented to person, place, and time. Fluent. Comprehension intact. Affect appropriate. Cranial Nerves: II: pupils 3/3 to 2/2 III/IV/: Versions intact without nystagmus, no gaze preference. V: Facial sensation symmetric to light touch VII: Facial expression symmetric VIII: Hearing intact to voice Motor: Strength was symmetric and antigravity throughout. Pronator drift was absent. There were no abnormal movements. Results & Data Vital Signs (Past 12 Hours) Vital Signs Temp Pulse Pulse Resp BP BP Pulse Ox 04/12/24 08:11 97 H 04/12/24 08:09 97 H 16 97 04/12/24 07:35 102 H 17 96 04/12/24 07:02 96 H 16 96 04/12/24 07:00 126/82 04/12/24 06:59 99 H 16 126/82 96 04/12/24 05:05 99 H 17 124/68 97 04/12/24 04:30 118 H 106/81 100 04/12/24 04:09 105 H 04/12/24 04:00 99 H 16 95/62 L 93 04/12/24 03:00 100 H 19 105/69 100 04/12/24 02:00 102 H 17 118/74 99 04/12/24 01:55 100 H 20 116/75 100 04/12/24 00:39 100 H 19 118/74 100 04/12/24 00:15 90 20 129/84 100 04/12/24 00:12 93 H 04/12/24 00:09 90 20 100 04/11/24 23:51 36.4 C L 89 20 129/84 94 04/11/24 23:51 36.8 C 106 H 20 102/58 L 94 O2 Del Method 04/12/24 08:11 04/12/24 08:09 04/12/24 07:35 04/12/24 07:02 04/12/24 07:00 04/12/24 06:59 Room Air 04/12/24 05:05 Room Air 04/12/24 04:30 Room Air 04/12/24 04:09 04/12/24 04:00 Room Air 04/12/24 03:00 Room Air 04/12/24 02:00 Room Air 04/12/24 01:55 Room Air 04/12/24 00:39 Room Air 04/12/24 00:15 Room Air 04/12/24 00:12 04/12/24 00:09 Room Air 04/11/24 23:51 Room Air 04/11/24 23:51 Room Air Laboratory Results Abnormal lab results 04/12/24 04/12/24 Range/Units 00:09 01:27 WBC 4.53 L (4.8-10.8) K/ul RBC 3.03 L (4.20-5.40) M/uL Hgb 7.8 L (12.0-16.0) g/dl POC Hgb 9.2 L (12.0-16.0) g/dl Hct 25.0 L (37.0-47.0) % POC Hct 27 L (37-47) % MCHC 31.2 L (32.0-36.0) g/dL RDW Std Deviation 49.7 H (36.4-46.3) fL RDW Coeff of [place] 16.7 H (11.5-14.5) % MPV 9.0 L (9.4-12.4) fL [place] # (Auto) 0.85 H (0.11-0.59) K/uL POC Sodium 123 L (135-144) mmol/L Sodium 124 L (136-145) mmol/L POC Chloride 94 L (101-112) mmol/L Chloride 95 L (98-107) mmol/L Carbon Dioxide 18 L (21-32) mmol/L POC Total CO2 15 L (24-31) mmol/L POC BUN < 3 L (7-18) mg/dl BUN < 2 L (6-23) mg/dl Creatinine 0.37 L (0.6-1.2) mg/dl Calcium 7.9 L (8.6-10.3) mg/dl POC Ioniz Calcium Rand 0.98 L (1.12-1.32) mmol/l Alkaline Phosphatase 199 H (34-104) U/L Total Protein 5.9 L (6.0-8.3) gm/dl Albumin 3.3 L (3.4-5.0) gm/dl (1) Acute leg pain Laterality: left Qualified Code(s): M79.605 - Pain in left leg
[2024-04-12] MEDS: FOLIC ACID 1 MG TAB PO SCH (09:21)
[2024-04-12] MEDS: GABAPENTIN 600 MG TAB PO ONE (09:21)
[2024-04-12] MEDS: THIAMINE HCL 100 MG TAB PO SCH (09:22)
[2024-04-12] MEDS: SERTRALINE HCL 100 MG TABLET PO SCH (09:22)
[2024-04-12] MEDS: MULTIVITAMIN TAB PO SCH (09:22)
[2024-04-12] MEDS: ENOXAPARIN INJ 40 MG/0.4 ML SYR SQ SCH (09:23)
[2024-04-12] MEDS: SUCRALFATE 1 GM/10 ML UDC PO SCH (09:23)
[2024-04-12 09:42] LABS: Basophils # (auto) 0.03 K/uL (0.00-0.20); Basophils % (auto) 1.2 %; Eosinophils # (auto) 0.08 K/uL (0.00-0.50); Eosinophils % (auto) 3.1 %; Hematocrit (blood only) 25.3 % (37.0-47.0); Hemoglobin 7.7 g/dl (12.0-16.0); Immature Granulocytes # (auto) 0.01 K/uL (0.01-0.20); Immature Granulocytes % (auto) 0.4 %; Lymphocytes # (auto) 0.83 K/uL (1.20-3.40); Lymphocytes % (auto) 31.9 %; Mean Corpuscular Hemoglobin 25.5 pg (25.0-34.0); Mean Corpuscular Hgb Conc 30.4 g/dL (32.0-36.0); Mean Corpuscular Volume 83.8 fL (80.0-100.0); Mean Platelet Volume 9.4 fL (9.4-12.4); Monocytes # (auto) 0.54 K/uL (0.11-0.59); Monocytes % (auto) 20.8 %; Neutrophils # (auto) 1.11 K/uL (1.40-6.50); Neutrophils % (auto) 42.6 %; Platelet Count 278 K/uL (130-400); RDW Coefficient of Variation 16.8 % (11.5-14.5); Red Blood Count 3.02 M/uL (4.20-5.40)
[2024-04-12 09:48] LABS: BUN Creatinine Ratio 5.4 (10-20); Calcium 8.3 mg/dl (8.6-10.3); Creatinine Clr Calc Pharmacy 268.6 ml/min; Magnesium 1.8 mg/dl (1.7-2.4); Potassium 3.8 mmol/L (3.5-5.1)
[2024-04-12 10:07] LABS: Hypochromasia Present; Ovalocytes 1+
--- NOTE | 2024-04-12 11:52 | Nephrology Consultation ---
Date of Consultation April 12, 2024 Assessment & Plan (1) Hyponatremia: It looks like she has chronic mild hyponatremia with levels in early 130s, Sodium on admission was 124, with the plasma osmolality of 303. She admits to drinking around 3 cans of beer daily, This has rapidly corrected to 134 within 8 hours. Alcoholic patients are at high risk of osmotic demyelination. Target sodium correction until 12:00 a.m. on 04/13 is 130, and 138 until 12:00 a.m. on 04/14 -stat 2 mics of desmopressin IV -start on D5W 125 mL an hour -stat BMP now and then 6 hourly. Care coordinated with Dr. De Los Santos (2) Acute leg pain: Likely secondary to MS/recs as per Neurology (3) Anemia: She has chronic anemia and receives IV iron which as per hospitalist since due next week. History of Present Illness Reason for Consultation: Hyponatremia Attending Physician: Ozzie De Los Santos MD History of Present Illness 33-year-old who was admitted with left lower extremity leg pain, ER labs were significant for a sodium of 124. Patient drinks around 3-4 cans of beer daily. Sodium is low but her osmolality is high secondary to alcohol intake. This is corrected rapidly to 134 in the period of 8 hours. On chart review it looks like she has got chronic mild hyponatremia with sodium in early 130s. Nephrology called for further management. 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, post gastric surgery syndrome, gastrojejunostomy stricture, B12 deficiency, GERD, history of hematemesis, history of GI bleed with melena, multiple sclerosis, migraine, optic nerve drusen bilateral, iron-deficiency anemia, major depression, insomnia, history of DVT, depression, generalized anxiety disorder, history of gastric bypass Allergies Allergy/AdvReac Type Severity Reaction Status Date / Time cephalexin Allergy Intermediate HIVES A Verified 04/07/23 00:26 SMALL CHILD Cephalosporins Allergy Intermediate Hives Verified 04/07/23 00:26 clindamycin Allergy Intermediate HIVES/HEART Verified 04/07/23 00:26 BURN hydrocodone Allergy Intermediate Itching Verified 04/07/23 00:26 methocarbamol Allergy Intermediate ITCHY RASH Verified 04/07/23 00:26 Sulfa (Sulfonamide Allergy Intermediate Hives Verified 04/07/23 00:26 Antibiotics) Home Medications Medication Instructions Recorded Confirmed Type albuterol sulfate 90 mcg/actuation 2 inh inhalation Q4H PRN sob 04/12/24 04/12/24 History aerosol inhaler dupilumab 300 mg/2 mL subcutaneous 300 mg subcut UD 04/12/24 04/12/24 History pen injector (Dupixent) epinephrine 0.3 mg/0.3 mL 0.3 mg IM UD PRN severe allergic 04/12/24 04/12/24 History injection, auto-injector reaction folic acid 1 mg tablet 2 mg PO DAILY 04/12/24 04/12/24 History hydroxyzine pamoate 25 mg capsule 25 mg PO TID PRN Anxiety 04/12/24 04/12/24 History ocrelizumab 30 mg/mL intravenous 1 mg IV UD 04/12/24 04/12/24 History solution sertraline 100 mg tablet 100 mg PO DAILY 04/12/24 04/12/24 History sucralfate 100 mg/mL oral 10 ml PO BID 04/12/24 04/12/24 History suspension Patient History Medical History Sepsis Cellulitis of right breast Difficulty walking 02/04/23-- states was seen at [facility] ER twice in the past week for diffculty ambulating Hx of upper gastrointestinal hemorrhage 12/2021 Hypoglycemia states normally runs very low History of COVID-19 06/2020- cough; resolved Anxiety Postgastric surgery syndrome Hx of peptic ulcer Migraine Surgical History History of esophagogastroduodenoscopy (EGD) Hx of tooth extraction Hx of tonsillectomy Hx of wisdom tooth extraction History of insertion of tunneled central venous catheter (CVC) with port History of liver biopsy Family History Other Diabetes Encounter for pre-operative examination Hypertension Social History Smoking Status: Never smoker Second Hand Exposure: No; Do You Dip or Chew Tobacco: No; Hx Alcohol Use: Yes Alcohol type: beer Alcohol type Comment: 6 beers approx every other day Hx Substance Use: No Preferred Language: Urdu Communication Ability: Effective Balance Bridge Inspector Required: No Beliefs That Will Affect Care: None marital status: Single Current Living Situation: Parent Current Living Situation Comment: with parents current occupational status: unemployed and disabled current occupation: disabled 2/2 to MS dx at 18 Other Information That Helps Us Care for You: No Feels Safe at Home: Yes Safety Concerns: Feels Safe At This Time Assistive Devices: Wheelchair Review of Systems 2 Review of Systems: All systems reviewed & are unremarkable except as noted in HPI & below Physical Exam 2 Physical Exam: General- Not in acute distress Head- atraumatic Eyes- PERRL. ENT- oropharynx clear Neck- supple, no JVD. Lungs- clear to auscultation no wheezing or crackles. Heart- regular rhythm; no murmur, no gallop. Abdomen- normal bowel sounds, soft, nontender, no distension Extremities- no pretibial edema, no erythema seen, left leg warm on palpation an sensations and power intact Neuro- alert, oriented PERRL, no facial palsy; no dysarthria; moves extremities Results & Data Vital Signs (Past 12 Hours) Vital Signs Temp Pulse Pulse Resp BP BP Pulse Ox 04/12/24 11:28 108 H 18 136/84 95 04/12/24 11:28 108 H 18 136/84 97 04/12/24 11:17 108 H 18 136/84 99 04/12/24 09:30 04/12/24 09:29 36.8 C 04/12/24 09:03 127 H 19 99 04/12/24 09:00 124/89 04/12/24 09:00 99 H 19 124/89 98 04/12/24 08:56 130/89 04/12/24 08:21 100 H 17 96 04/12/24 08:11 97 H 04/12/24 08:09 97 H 16 97 04/12/24 07:35 102 H 17 96 04/12/24 07:02 96 H 16 96 04/12/24 07:00 126/82 04/12/24 06:59 99 H 16 126/82 96 04/12/24 05:05 99 H 17 124/68 97 04/12/24 04:30 118 H 106/81 100 04/12/24 04:09 105 H 04/12/24 04:00 99 H 16 95/62 L 93 04/12/24 03:00 100 H 19 105/69 100 04/12/24 02:00 102 H 17 118/74 99 04/12/24 01:55 100 H 20 116/75 100 04/12/24 00:39 100 H 19 118/74 100 04/12/24 00:15 90 20 129/84 100 04/12/24 00:12 93 H 04/12/24 00:09 90 20 100 04/11/24 23:51 36.4 C L 89 20 129/84 94 04/11/24 23:51 36.8 C 106 H 20 102/58 L 94 O2 Del Method O2 Del Method 04/12/24 11:28 Room Air 04/12/24 11:28 Room Air 04/12/24 11:17 Room Air 04/12/24 09:30 Room Air 04/12/24 09:29 04/12/24 09:03 04/12/24 09:00 04/12/24 09:00 Room Air 04/12/24 08:56 04/12/24 08:21 Room Air 04/12/24 08:11 04/12/24 08:09 04/12/24 07:35 04/12/24 07:02 04/12/24 07:00 04/12/24 06:59 Room Air 04/12/24 05:05 Room Air 04/12/24 04:30 Room Air 04/12/24 04:09 04/12/24 04:00 Room Air 04/12/24 03:00 Room Air 04/12/24 02:00 Room Air 04/12/24 01:55 Room Air 04/12/24 00:39 Room Air 04/12/24 00:15 Room Air 04/12/24 00:12 04/12/24 00:09 Room Air 04/11/24 23:51 Room Air 04/11/24 23:51 Room Air Laboratory Results 04/12/24 08:49 04/12/24 08:49 (2) Acute leg pain Laterality: left Qualified Code(s): M79.605 - Pain in left leg (3) Anemia Anemia type: unspecified type Qualified Code(s): D64.9 - Anemia, unspecified
[2024-04-12] MEDS: DESMOPRESSIN ACETATE 2 MCG in SODIUM CHLORIDE 0.9% 50 ML IV ONE (12:20)
[2024-04-12] MEDS: DEXTROSE 5% 500 ML IV SCH (12:56)
[2024-04-12] MEDS: GABAPENTIN 600 MG TAB PO SCH (13:56)
[2024-04-12 14:42] LABS: BUN Creatinine Ratio 4.5 (10-20); Creatinine Clr Calc Pharmacy 225.9 ml/min; Potassium 3.9 mmol/L (3.5-5.1)
[2024-04-12] MEDS: MAGNESIUM SULFATE / D5W 1 GM/100 ML BAG IV ONE (16:10)
[2024-04-12] MEDS: DEXTROSE 5% 1,000 ML IV SCH (16:29)
[2024-04-12] MEDS: ACETAMINOPHEN 325 MG TAB PO PRN (19:27)
[2024-04-12 21:09] LABS: BUN Creatinine Ratio 8.9 (10-20); Calcium 8.3 mg/dl (8.6-10.3); Creatinine Clr Calc Pharmacy 220.9 ml/min; Potassium 3.7 mmol/L (3.5-5.1)
[2024-04-13 02:34] LABS: Hematocrit (blood only) 23.4 % (37.0-47.0); Hemoglobin 7.2 g/dl (12.0-16.0); Mean Corpuscular Hemoglobin 25.6 pg (25.0-34.0); Mean Corpuscular Hgb Conc 30.8 g/dL (32.0-36.0); Mean Corpuscular Volume 83.3 fL (80.0-100.0); Platelet Count 231 K/uL (130-400); RDW Coefficient of Variation 16.9 % (11.5-14.5); RDW Standard Deviation 51.1 fL (36.4-46.3); Red Blood Count 2.81 M/uL (4.20-5.40); White Blood Count 3.85 K/ul (4.8-10.8)
[2024-04-13 02:46] LABS: BUN Creatinine Ratio 9.5 (10-20); Calcium 8.2 mg/dl (8.6-10.3); Creatinine Clr Calc Pharmacy 236.6 ml/min; Magnesium 1.9 mg/dl (1.7-2.4); Potassium 3.8 mmol/L (3.5-5.1)
[2024-04-13 03:57] VITALS: RESP 18
--- OUTSIDE RECORDS SUMMARY | 2024-04-13 04:51 | External Medical Summary | Summary of Care ---
Author Name Unknown Organization [facility] Address [address] [facility] [place] [address] Phone [phone] Care Team Providers Care Stove Tender Name Role Phone Kimberly Figueroa MD Primary Care Provider + Reason for Visit * Reason Comments Medication Refill Encounter Details Date Type Department Care Team (Late st Contact Info) Description 04/09/2024 Refill Dermatology, Katarina Santos [address] [facility] [place] [address] Betina Laurent PA-C [address] [place] [id number] Allergies Active Allergy Reactions Criticality Noted Date Comments Cephalexin Hives 01/24/2010 As a small child Clindamycin Hives 12/30/2014 " And bad heartburn" As an adult about age 24 Methocarbamol Rash High 06/17/2016 Sulfa Antibiotics Hives 08/05/2006 As a small child Hydrocodone-Acetaminophen Itching 01/01/2014 documented as of this encounter (statuses as of 04/09/2024) Medications FLINTSTONES COMPLETE PO CHEW daily Act mari Cholecalciferol (VITAMIN D3) 5000 UNITS Tablet Take 1 Cap by mouth daily. Take with additonal 1000 units for total of 6000 units daily 30 Cap 11 09/28/19 16 Active Cranberry 500 MG Capsule Take 1 Capsule by mouth in the morning. 08/07/19 18 Active vitamin b-12 (CYANOCOBALAMIN) 1000 MCG/ML injection Inject 1 mL into a large muscle every 30 days. 12/12/19 18 Active Ocrelizumab 300 MG/10ML Intravenous Solution Administer intravenously. Every 6 months 05/10/19 19 Active Glucose Blood (ONETOUCH VERIO) STRPIndications:H ypoglycemia Test blood sugar once daily as directed. Dx: E16.2 100 Strip 11 02/04/20 19 Active ONETOUCH DELICA LANCETS 33G MISCIndications:H ypoglycemia Test blood sugar once daily as directed. Dx: E16.2 90 Each 3 02/04/20 19 Active Topiramate 50 MG Oral Tablet (topAMAX)Indicati ons:WRAPPER LEAF INSPECTOR demyelination (HCC) TAKE 1 TABLET BY MOUTH TWICE A DAY 180 Tab 1 11/15/19 21 Active Albuterol Sulfate (2.5 MG/3ML) 0.083% Inhalation Nebulization Solution (Proventil)Indica tions:Moderate persistent asthma with acute exacerbation USE ONE VIAL IN NEBULIZER EVERY 4 HOURS NEEDED FOR WHEEZING DX: J45.30 60 mL 2 12/05/19 22 Active Venlafaxine HCl 50 MG Oral Tablet (Effexor)Indicati ons:AUDELIA (generalized anxiety disorder),Current moderate episode of major depressive disorder without prior episode (HCC) Take 1 Tablet by mouth in the morning and 1 Tablet before bedtime. With food.. 90 Tablet 5 08/15/19 23 Active Promethazine HCl 25 MG Oral Tablet (Phenergan)Indica tions:Nausea Take 1 Tablet by mouth every 6 hours as needed for Nausea. or vomiting 20 Tablet 1 02/20/20 23 Active Rizatriptan Benzoate 10 MG Oral Tablet (Maxalt)Indicatio ns:WRAPPER LEAF INSPECTOR demyelination (HCC) one at onset. May repeat two hour if neeed 9 Tablet 5 02/20/20 23 Active Triamcinolone Acetonide 0.1 % External Cream (Aristocort) Apply topically to affected area 2 times a day. Apply to rash areas. 30 g 07/23/19 24 Active Albuterol Sulfate HFA 108 (90 Base) MCG/ACT Inhalation Aerosol Solution INHALE 2 PUFFS BY MOUTH EVERY FOUR HOURS NEEDED FOR WHEEZING 18 g 2 10/21/19 24 Active EPINEPHrine 0.3 MG/0.3ML Injection Solution Auto-injector (Autoinjector) For a severe reaction: Inject in outer thigh following instructions on package and go to the Emergency room. 2 Each 3 10/21/19 24 Active Fexofenadine-Pseu doephed ER 180-240 MG Tablet Extended Release 24 Hour (Gemma-D Allergy & Congestion) Take 1 Tablet by mouth in the morning. Active Folic Acid 1 MG Oral TabletIndications :H/O gastric bypass,Folic acid deficiency Take 2 Tablets by mouth in the morning. 180 Tablet 1 12/23/19 24 Active hydrOXYzine Pamoate 25 MG Oral Capsule (Vistaril)Indicat ions:AUDELIA (generalized anxiety disorder) Take 1 Capsule by mouth 3 times a day as needed for Anxiety (Sleep). 30 Capsule 5 01/14/20 24 Active Sertraline HCl 100 MG Oral Tablet (Zoloft)Indicatio ns:Recurrent major depressive disorder, in partial remission (HCC) Take 1 Tablet by mouth in the morning. 90 Tablet 3 02/11/20 24 Active Sucralfate 1 GM/10ML Oral Suspension (Carafate) Take 10 mL by mouth in the morning and 10 mL before bedtime. 1800 mL 02/18/20 24 025 Active Dupixent 300 MG/2ML Subcutaneous Solution Auto-injector (Dupilumab) Maintenance Dose: Inject 300mg (1 pen) under the skin every two weeks. 4 mL 04/09/20 24 Active Dupixent 300 MG/2ML Subcutaneous Solution Auto-injector (Dupilumab) Maintenance Dose: Inject 300mg (1 pen) under the skin every two weeks. 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 Mild persistent asthma without complication 12/06 Migraine 04/13/2011 Chronic sinusitis 04/25/2010 Postgastric surgery syndrome 07/11/2009 Overview (02/04/2017): ICD-10 update of inactive term ROCK [employer]EARCH OTHER*[id number] 11/17/2007 documented as of this encounter (statuses as of 04/09/2024) Resolved Problems Problem Noted Date Diagnosed Date Resolved Date Upper GI bleed 01/22/2024 01/24/2024 Gastrostomy status 02/19/2023 3 Dehydration 01/19/2022 11/21/2022 Diabetes mellitus without complication 03/24/2019 03/24/2019 Fall 02/05/2018 06/12/2018 Hip pain, right 02/05/2018 06/12/2018 Allergic conjunctivitis, bilateral 10/31/2017 09/17/2018 Body mass index (BMI) of 40. 0 to 44.9 in adult 04/16/2017 12/19/2021 Overview (12/19/2021): Per Obesity protocol #1 historical H/O gastric bypass 03/19/2017 9 Well adult exam 06/13/2016 09/17/2018 Overview (04/22/2018): 04/22 EMG WNL 06/22 no hx paps--pt declines. Allergic conjunctivitis 05/08/201605/06 Acute bronchitis, complicated 11/22/2015 2016 Acute frontal sinusitis 08/03/201505/06 Acute maxillary sinusitis 08/03/2015 MS (multiple sclerosis) 04/18/2015 0806/2017 DVT of upper extremity (deep vein thrombosis) 04/18/20 15 10/16/2016 Abnormal glucose 02/28/2015 09/26/2017 Hematoma 12/14/2014 2016 Nail deformity 10/26/2014 06/12/2018 Bacterial pneumonia 07/06/2014 05/17/19 17 Bronchitis, complicated 06/30/201405/06 Vaginitis 06/08/2014 2016 Ear pain, left 12/24/2013 2016 Melanocytic nevi of face 10/26/2013 Cholelithiasis 02/24/2013 01/01/2014 Neoplasm of uncertain behavior of skin 07/17/2012 02/25/2013 Conjunctivitis, allergic 01/03/2012 Allergic rhinitis 01/03/2012 01/01/2014 Strep sore throat 03/18/2011 01/03/2012 Otalgia 04/25/2010 01/03/2012 OTITIS MEDIA,RECURRENT ACUTE 04/25/2010 02/25/2013 Allergic rhinitis 04/25/2010 01/03/2012 Hypertrophy of nasal turbinates 04/25/2010 02/25/2013 Deviated nasal septum 04/25/20102013 Obesity, Class II, BMI 35-39 .9, isolated (see actual BMI) 08/01/2009 01/01/2014 Overview (08/01/2009): Per Obesity Taxonomy WRAPPER LEAF INSPECTOR demyelination 07/11/2009 09/17/2018 ADVANCE DIRECTIVE INFORMATION 07/03/2009 06/12/2018 Overview (07/03/2009): No, Advance Directive brochure offered , patient declined. ACUTE (TRANSVERSE) MYELITIS IN CONDITIONS CLASSIFIED ELSEWHERE 11/06/2008 11/21/2022 Asthma with severity to be determined 11/06/2008 01/03/2012 Overview (08/15/2015): ICD-10 update of inactive term Anemia 11/06/2008 06/12/2018 Acute posthemorrhagic anemia 07/07/2008 01/03/2012 Intestinal postoperative nonabsorption 06/11/2008 2016 Morbid obesity, BMI not known 05/02/2007 08/01/2009 Overview (08/01/2009): Per Obesity Taxonomy Multiple sclerosis 6 documented as of this encounter (statuses as of 04/09/2024) Immunizations Name Administration Dates Next Due COVID-19 mRNA, LNP-s, No Pre serve, 2-Dose Series (Moderna) 10/10/2020,09/12/2020 DT - Diptheria/Tetanus (PEDS) 10/04/2001 DTP Vaccine 01/19/1991, 0,1989,07/19 DTaP Dipth/Tet/Acell Pertussis (Infanrix), Peds 02/19/1995 H1N1 2009 Influenza, IM 04/25/2009 Haemophilius B (HIB), unspecified 08/22/1990 Hepatitis B, 0-19 yrs 11/18/2001,09/09/2001,0309/2001 MMR - Measles/Mumps/Rubella Vaccine 02/19/1994,0 08/22/1990 OPV - Polio Virus Vaccine (Oral) 994,01/19/1991,1989,07/19 Pneumococcal Conjugate Vacc, 13 Valent (Prevnar) 02/20/2017 Pneumococcal Polysaccharide PPV23 (Pneumovax) 02/15/2016,01/25/2012 Seasonal Influenza Vac., MDV , IM, 0.5 mL (Fluzone) 02/05/2014,02/12/2013,01/25/2012,02/08,02/16/2010 Seasonal Influenza Virus Vac cine, Unspecified Formulation 02/14/2023,01/21/2018,02/05/2017,01/19,02/05/2014,02/12/2013,01/25/2012 ,02/08/2011,02/16/2010 Seasonal Influenza, PF, 6 M & above, IM , (FluLaval or Fluzone) 01/23/2022,01/24/2021,01/20/2020,01/20,01/21/2018,02/05/2017 Seasonal Influenza, Quadriva lent, No Preserve, IM 01/20/2016,02/08/2015 Seasonal Influenza, Trivalen t, (IIV3), PF, (Fluzone) 01/14/2024 TD, Preservative Free 08/18/2020,10/04/2001 TDAP (age 10 and older)(Boostrix) 01/25/2012 Varicella Vaccine (Chicken Pox) 07/08/2001 documented as of this encounter Social History Tobacco Use Types Packs/Day Years Used Date Smoking Tobacco: Never Smokeless Tobacco: Never Comments:no passive smoke ex posures Alcohol Use Standard Drinks/Week Comments Yes 1 (1 standard drink = 0.6 oz pur e alcohol) occassional PHQ-2 Answer Date Recorded PHQ Adult Total Score 0 05/20/2023 Hunger Vital Sign Answer Date Recorded Within the past 12 months, y ou worried that your food would run out before you got the money to buy more. Never true 05/20/19 24 Within the past 12 months, t he food you bought just didn't last and you didn't have money to get more. Never true 05/20/2023 Childcare Answer Date Recorded Do you feel overwhelmed with taking care of a child, family member or friend? No 05/20/2023 Does your family need help f inding childcare? (Household - for ages 0-17 years) Not on file 05/20/2023 Clothing Answer Date Recorded Have you been unable to get clothing when it was really needed? No 05/20/2023 Is your family able to get c lothes or diapers when needed? (Household - for ages 0-17 years) Not on file 05/20/2023 Personal Safety Answer Date Recorded Do you feel unsafe or have concerns for your saf ety? No 05/20/2023 Do you have concerns for you r family's safety? (Household - for ages 0-17 years) Not on file 05/20/2023 Utilities Answer Date Recorded Do you have trouble paying y our heating, water, or electric bill? No 05/20/2023 Is your family able to pay t he heat, water, or electric bill? (Household - for ages 0-17 years) Not on file 05/20/2023 Does your family have access to good internet? (Household - for ages 0-17 years) Not on file 05/20/2023 Employment Status Answer Date Recorded Are you unemployed or without regular income? No 05/20/2023 Does the household have a re lar source of income? (Household - for ages 0-17 years) Not on file 05/20/2023 Social Connections Answer Date Recorded How often do you feel lonely or isolated from th ose around you? Never 05/20/2023 Financial Resource Strain Answer Date R ecorded Do you have any trouble payi ng for your medications, or do you think you might in the future? No 05/20/2023 Does your family have troubl e paying for medicine? (Household - for ages 0-17 years) Not on file 05/20/2023 Transportation Needs Answer Date Record ed READ ONLY Do you have troubl e getting a ride to medical visits or work? Never True 05/20/2023 Does your family have a hard time getting a ride to doctors visits? (Household - for ages 0-17 years) Not on file 05/20/2023 Has lack of transportation k ept you from medical appointments, meetings, work, or from getting things needed for daily living? Check all that apply. (Adult - for ages 18 years and over) Not on file 05/20/2023 Do you (or your family) have trouble finding or paying for a ride (transportation)? (Household - for ages 0-17 years) Not on file 05/20/2023 Housing Stability Answer Date Recorded Do you currently live in a s helter or have no steady place to sleep at night? No 05/20/2023 READ ONLY Do you think you a re at risk of becoming homeless? No 05/20/2023 Does your family worry about paying for your home or becoming homeless? (Household - for ages 0-17 years) Not on file 0 05/20/2023 Are you homeless or worried that you might be in the future? (Adult - for ages 18 years and over) Not on file Are you (or your family) derick eless or worried that you might be in the future? (Household - for ages 0-17 years) Not on file Food Insecurity Answer Date Recorded Do you need food for this week? No 05/20/2023 Are you able to get enough f ood for your family? (Household - for ages 0-17 years) Not on file 05/20/2023 Does your family need food t his week? (Household - for ages 0-17 years) Not on file 05/20/2023 Do you always have enough fo od for your family? 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 Answer Date of Assessment Author No 01/22/2024 10:09 PM Nida Ovalles RN * Are you blind or do you have serious difficulty seeing, even when wearing glasses? Answer Date of Assessment Author No 01/22/2024 10:09 PM Nida Ovalles RN * Do you have serious difficulty walking or climbing stairs? (5 years old or older) Answer Date of Assessment Author No 01/22/2024 10:09 PM Nida Ovalles RN * Do you have difficulty dressing or bathing? (5 years old or older) Answer Date of Assessment Author No 01/22/2024 10:09 PM Nida Ovalles RN * Because of a physical, mental, or emotional condition, do you have difficulty doing errands alone such as visiting a doctors office or shopping? (15 years old or older) Answer Date of Assessment Author Yes 01/22/2024 10:09 PM Nida Ovalles RN documented as of this encounter Mental Status * Because of a physical, mental, or emotional condition, do you have serious difficulty concentrating, remembering, or making decisions? (5 years old or older) Answer Entry Date Author No 01/22/2024 10:09 PM EDT Nida Culp RN documented in this encounter Miscellaneous Notes * Telephone Encounter - Betina Laurent PA-C - 04/09/2024 2:55 PM ESTSigned Prescriptions: Disp Refills Dupixent 300 MG/2ML Subcutaneous Solution *4 mL 0 Sig: Maintenance Dose: Inject 300mg (1 pen) under the skin every two weeks.Authorizing Provider: BETINA LAURENT documented in this encounter Plan of Treatment Upcoming Encounters Date Type Department Care Team (Latest Contact Info) Description 4 2:00 PM EST Office Visit Neurology [address] [place] [phone] Frida Ramírez PA-C [address] [facility] [place] [phone] 4 11:40 AM EST Office Visit General Internal Medicine [facility] [place] [address] [facility] [place] [address] Kimberly Figueroa MD [address] [facility] [place] [address] 4 2:00 PM EST Hem/Onc Treatment Hematology/Onc ology Treatment, [place] [address] [place] [phone] Catina, Chair 6 Hem Onc [facility] [address] [place] [address] 4 8:00 AM EST Hospital Encounter OR [facility], Operating Room, [facility] - 4th Floor [address] [place] [phone] Anita Ha MD [address] [place] [address] 4 8:00 AM EST - 4 8:32 AM EST Surgery OR [facility], Operating Room, [facility] - 4th Floor [address] [place] [phone] Anita Ha MD [address] [place] [address] ESOPHAGOGASTRODUODENOSCOPY (EGD), FLEXIBLE, TRANSORAL, DIAGNOSTIC 4 10:00 AM EST Telemedicine Dermatology, Katarina Santos [address] [facility] [place] [address] [place], Pharmacist Dermatology E [facility] [address] [facility] [place] [address] 4 10:00 AM EST Hem/Onc Treatment Hematology/Onc ology Treatment, [place] [address] [place] [phone] Catina, Chair 3 Hem Onc [address] [facility] [place] [address] 5 2:30 PM EDT Office Visit Hematology/Onc ology [facility] [place] [address] [facility] [place] [phone] Tori Braxton CRNP [address] [place] [id number] 5 7:00 AM EDT Pharmacy Neurology [address] [place] [phone] [place], Pharmacist Neurology [address] [facility] [place] [address] Scheduled Procedures Name Priority Associated Diagnoses Date/Ti me ESOPHAGOGASTRODUODENOSCOPY ( EGD), FLEXIBLE, TRANSORAL, DIAGNOSTIC 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 8:00 AM EST Health Maintenance Due Date Last Done Comments COVID-19 Vaccine (3 - Moderna risk series) 11/07/2020 10/10/2020, 09/12/2020 Depression Monitoring 05/20/2024 05/20/2023 DTap/Tdap Vaccines (10 - Td or Tdap) 08/18/2030 08/18/2020, 01/25/2012, 10/04/2001, Additional history exists Pneumococcal Vaccine: Pediatrics (0 to 5 Years) and At-Risk Patients (6 to 64 Years) (4 of 4 - PPSV23 or PCV20) 2054 02/20/2017, 02/15/2016, 01/25/2012 Hepatitis B Vaccine Completed 11/18/2001, 09/09/2001, 07/08/2001 Hepatitis C Screening Completed 11/05/2017 , 09/05/2017, 09/20/2013 Influenza Vaccine (FLU shot) Completed 02/2024, 02/14/2023, 01/23/2022, Additional history exists HPV (Gardasil) Vaccine Aged Out No lo nger eligible based on patient's age to complete this topic MENINGOCOCCAL (MENACTRA/MENVEO) Aged Out No longer eligible based on patient's age to complete this topic documented as of this encounter Medical Devices Implanted Type Area Electric Plater Device Identifier Shelf Expiration Date Model / Serial / Lot Port Pwr Mri Isp Profile - [id number] Implanted:Qty : 1 on 08/09/2015 by Terrance Curry MD at OR [facility] [place] Left: Chest CR BARD : PERIPHERAL VASCULAR 05/02/2017 [id number] / / [id number] Description:27 length of cat heter Set Sys Otsc 11-6t 165cm - [id number] Implanted:Qty : 1 on 02/13/2024 by Anita Ha MD at OR [facility] [id number] 01/03/2025 100. 10 / / [id number] documented as of this encounter Advance Directives * Full Code (Latest Code Status on File) Date Activated Date Inactivated Comments 01/22/2024 11:22 PM 01/24/2024 8:02 PM This order reflects the patients wishes and were consensually agreed upon. Question Answer Comments Discussion of Advance Directives occurred with: Patient * Full Code Date Activated Date Inactivated Comments 01/22/2024 10:58 PM 01/22/2024 11:21 PM This order reflects the patients wishes and were consensually agreed upon. Question Answer Comments Discussion of Advance Directives occurred with: Patient * Full Code Date Activated Date Inactivated Comments 04/18/2015 4:14 PM 04/19/2015 7:03 PM This order reflects the patients wishes and were consensually agreed upon. Question Answer Comments Discussion of Advance Directives occurred with: Patient * Full Code Date Activated Date Inactivated Comments 09/20/2013 3:10 PM 09/22/2013 9:07 PM This order r eflects the patients wishes and were consensually agreed upon. Question Answer Comments Discussion of Advance Directives occurred with: Not Discussed Does the patient have a Living Will? No Does the patient have Health Care Power of Attor bob? No * Full Code Date Activated Date Inactivated Comments 12/03/2011 5:56 AM 12/03/2011 1:07 PM This order r eflects the patients wishes and were consensually agreed upon. Healthcare Agents on File Name Relationship Healthcare Agent Relationshi p Communication Lashanda Justus Mother First Alternate Health Care Agent (per Health Care Power of Hand Inspector document) Care Teams Stove Tender Relationship Specialty Start Date End Date Kimberly Figueroa MD [address] [place] [address] PCP - General Internal Medicine 02/21/21 documented as of this encounter
--- OUTSIDE RECORDS SUMMARY | 2024-04-13 04:51 | External Medical Summary | Summary of Care ---
Author Name Unknown Organization [facility] Address [address] [facility] [place] [address] Phone [phone] Care Team Providers Care Flaking Roll Operator Name Role Phone Kimberly Figueroa MD Primary Care Provider + Encounter Details Date Type Department Care Team (Late st Contact Info) Description 04/10/2024 Orders Only Hematology/Oncology Treatment, [place] [address] [place] [phone] Tori Braxton CRNP 400 [facility] [place] [address] Allergies Active Allergy Reactions Criticality Noted Date Comments Cephalexin Hives 01/24/2010 As a small child Clindamycin Hives 12/30/2014 " And bad heartburn" As an adult about age 24 Methocarbamol Rash High 06/17/2016 Sulfa Antibiotics Hives 08/05/2006 As a small child Hydrocodone-Acetaminophen Itching 01/01/2014 documented as of this encounter (statuses as of 04/10/2024) Medications FLINTSTONES COMPLETE PO CHEW daily Act [...] Active Topiramate 50 MG Oral Tablet (topAMAX)Indicati ons:CHEMICAL ANALYST demyelination (HCC) TAKE 1 TABLET BY MOUTH [...] Rizatriptan Benzoate 10 MG Oral Tablet (Maxalt)Indicatio ns:CHEMICAL ANALYST demyelination (HCC) one at onset. May repeat [...] Subcutaneous Solution Auto-injector (Dupilumab) Maintenance Dose: Inject 300 mg (1 pen) under the skin every two weeks. 4 mL 04/09/20 24 Active Hospital, Clinic, or Other Facility Administered Medication Ordered Dose Route Frequency Start Date End Date Status medroxyPROGESTERone acetate (Depo-Provera) inj BRYANNA 150 mgIndications:Depo-Provera contraceptive status 150 mg IM [id number] 02/08/2023 07/27/2025 Acti ve documented as of this encounter (statuses as of 04/10/2024) Active Problems Problem Noted Date Diagnosed Date History of gastric bypass 03/16/2024 Hematemesis with nausea 01/22/2024 Gastrointestinal hemorrhage with melena 01/22/20 Other atopic dermatitis 10/17/2023 Chronic embolism and [...] ICD-10 update of inactive term ROCK RESEARCH OTHER*[id number] 11/17/2007 documented as of this encounter (statuses as of 04/10/2024) Resolved Problems Problem Noted Date Diagnosed Date [...] 08/01/2009 01/01/2014 Overview (08/01/2009): Per Obesity Taxonomy CHEMICAL ANALYST demyelination 07/11/2009 09/17/2018 ADVANCE DIRECTIVE INFORMATION 07/03/2009 [...] as of this encounter (statuses as of 04/10/2024) Immunizations Name Administration Dates Next Due COVID-19 [...] 05/20/2023 Does the household have a re gular source of income? (Household - for ages [...] Entry Date Author No 01/22/2024 10:09 PM Nida Ovalles RN documented in this encounter Plan of Treatment Upcoming Encounters Date Type Department Care Team (Latest Contact Info) Description 4 2:00 PM EST Office Visit Neurology Lisa [address] [place], [place] [address] Frida Ramírez PA-C [address] [facility] [place] [phone] 4 11:40 AM EST Office Visit General Internal Medicine Scenery [facility] [address] [place] [address] Kimberly Figueroa MD [address] [place] [address] 4 2:00 PM EST Hem/Onc Treatment Hematology/Onc ology Treatment, [place] [address] [place] [address] Catina, Chair 6 Hem Onc Scene [address] [place] [address] 4 8:00 AM EST Hospital Encounter OR GL, Operating Room, [facility] - 4th Floor [address] [place] [phone] Anita Ha MD [address] [place] [address] 4 8:00 AM EST - 4 8:32 AM EST Surgery OR GL, Operating Room, [facility] - 4th Floor [address] [place] [phone] Anita Ha MD [address] [place] [address] ESOPHAGOGASTRODUODENOSCOPY (EGD), FLEXIBLE, TRANSORAL, DIAGNOSTIC 4 10:00 AM EST Telemedicine Dermatology, Katarina Santos [address] [place] [address] [place] [address] Wb, Pharmacist Dermatology E [facility] [address] [facility] [place] [address] 4 10:00 AM EST Hem/Onc Treatment Hematology/Onc ology Treatment, [place] [address] [place], [place] [address] Catnia, Chair 3 Hem Onc Scenery [address] [place] [address] 5 2:30 PM EDT Office Visit Hematology/On[facility]y [facility] [place] [address] [place] [address] Tori Braxton CRNP 400 [facility] [id number] 5 7:00 AM EDT Pharmacy Neurology [address] [place] [address] Lisa, Pharmacist Neurology 100 [facility] [address] [place], [place] [address] Scheduled Procedures Name Priority Associated Diagnoses Date/Ti [...] this encounter Medical Devices Implanted Type Area Operator Lights Device Identifier Shelf Expiration Date Model / Serial / Lot Port Pwr Mri Isp Profile - [id number] Implanted:Qty : 1 on 08/09/2015 by Terrance Curry [place] [facility] [place]: Chest CR BARD : PERIPHERAL VASCULAR 05/02/2017 [id number] / / [id number] Description:27 length of cat heter Set Sys Otsc 11-6t 165cm - [id number] Implanted:Qty : 1 on 02/13/2024 by Anita Ha MD at OR [facility] [employer] [id number] 01/03/2025 100. 10 / / [id number] documented as of this encounter Advance Directives [...] Relationship Healthcare Agent Relationshi p Communication Lashanda Jerome Mother First Alternate Health Care Agent (per Health Care Power of Braiding Operator document) Care Teams Flaking Roll Operator Relationship Specialty Start Date End Date Kimberly Figueroa MD 200 [place] [address] PCP - General Internal Medicine 02/21/21 documented as of this encounter
--- OUTSIDE RECORDS SUMMARY | 2024-04-13 04:51 | External Medical Summary | Summary of Care ---
Author Name Unknown Organization [facility] Address [address] [facility] [place] [address] Phone [phone] Care Team Providers Care Drawer Upfitter Name Role Phone Kimberly Figueroa MD Primary Care Provider + Reason for Visit * Reason Onset Date Comments FYI 04/07/2024 Encounter Details Date Type Department Care Team (Late st Contact Info) Description 04/07/2024 Telephone Neurology [address] [place] [address] Services, Scheduling [address] [place] [address] FYI Allergies Active Allergy Reactions Criticality Noted Date [...] Active Topiramate 50 MG Oral Tablet (topAMAX)Indicati ons:BLADE FILER demyelination (HCC) TAKE 1 TABLET BY MOUTH [...] Rizatriptan Benzoate 10 MG Oral Tablet (Maxalt)Indicatio ns:BLADE FILER demyelination (HCC) one at onset. May repeat [...] the skin every two weeks. 4 mL 03/12/2024 8:47 AM EST 03/03/20 24 Active Hospital, Clinic, or Other Facility Administered Medication Ordered Dose Route Frequency Start Date End Date Status medroxyPROGESTERone acetate (Depo-Provera) inj BRYANNA 150 mgIndications:Depo-Provera contraceptive status 150 mg IM [id number] 02/08/2023 07/27/2025 Acti ve documented as of [...] ICD-10 update of inactive term ROCK RESEARCH OTHER*[id number] 11/17/2007 documented as of this encounter (statuses [...] 08/01/2009 01/01/2014 Overview (08/01/2009): Per Obesity Taxonomy BLADE FILER demyelination 07/11/2009 09/17/2018 ADVANCE DIRECTIVE INFORMATION 07/03/2009 [...] Nida Ovalles RN documented in this encounter Miscellaneous Notes * Telephone Encounter - Flis, Daija, BIANCA - 04/09/2024 10:04 AM EST Spoke to Lashanda and offered her an appt on Saturday which she took. Advised her to keep appt because sheneeds to be seen in person to be evaluated and if she does not feel she can wait until Saturday to please take pt to ER to be evaluated as recommended. * Telephone Encounter - Daija Rosales OSA - 04/09/2024 9:33 AM EST Lashanda (pts mother) said she feels pt is having a MS flare even though she was told you do not believeshe is . She is requesting appt this week for you to look over pt. To make sure she is ok before this procedure is done. She said if you can not see her she is thinking of taking her to ER to see what they say is going on. She said a phone call would be ok as well. * Telephone Encounter - Cintia Jasmine OSA - 04/07/2024 12:02 PM EST Neuroscience Phone Call Form- Requested Information from caller: Who is calling (not pt) name: Lashanda relationship: Mom Provider patient is established with: Frida Brizuela What is the concern or issue they are having: In [place] PT having a procedure on the for a bleeding ulcer that they will not perform unless PT gets cleared in Neurology for a possible MS flarr up. Please can Medical call Noe Pyle. How long has the issue been going on: Any additional details to add: no Phone number for nurse to call back: [phone] Are forms needed? no Medication Refill? no Verify Pharmacy information is correct. Form to be used for established patients only (not new patients) Clinic has 24-48 hours to respond to caller. If caller is calling back before timeframe with any changes in condition/issues reported, update TEand re-route to appropriate pool If caller is calling back before timeframe- update TE- no need to re-route Peds Neurology Pool- [facility] Neuro Carpet Jack- [id number] (All messages get sent to the [facility]) Neurology Pool Numbers- [place] and [place] patients - follow normal process Ops req [facility] Neurology ([place])- [id number] Ops req [place] Neurology ([place]- [place] and [facility] clinics Only)- [id number] Neurosurgery Pool Numbers- [place] patients- follow normal process Ops req Neurosurgery [facility] ([place])- [id number] Ops req Neurosurgery [facility] ([place] Only) [id number] documented in this encounter Plan of Treatment Upcoming Encounters Date Type Department Care Team (Latest Contact Info) Description 4 2:00 PM EST Office Visit Neurology Lore [address] [place] [phone] Frida Ramírez PA-C [address] [facility] [place] [address] 4 11:40 AM EST Office Visit General Internal Medicine [facility] [place] 200 [facility] [place] [address] Kimberly Figueroa MD 200 [facility] [place] [address] 4 2:00 PM EST Hem/Onc Treatment Hematology/Onc ology Treatment, [place] [address] [place] [address] Catina, Chair 6 Hem Onc [facility] 200 [facility] [place] [address] 4 8:00 AM EST Hospital Encounter OR GL, Operating Room, [facility] - 4th Floor [address] [place] [phone] Anita Ha MD [address] [place] [address] 4 8:00 AM EST - 4 8:32 AM EST Surgery OR GLH, Operating Room, [facility] - 4th Floor [address] [place] [phone] Anita Ha MD [address] [place] [address] ESOPHAGOGASTRODUODENOSCOPY (EGD), FLEXIBLE, TRANSORAL, DIAGNOSTIC 4 10:00 AM EST Telemedicine Dermatology, Katarina Santos [address] [facility] [place] [address] Wb, Pharmacist Dermatology E [facility] [address] [facility] [place] [address] 4 10:00 AM EST Hem/Onc Treatment Hematology/Onc ology Treatment, [place] [address] [place] [address] Catina, Chair 3 Hem Onc [facility] 200 [facility] [place] [address] 5 2:30 PM EDT Office [facility] [place] [address] [place] [address] Tori Braxton, SAJAN [address] [place] [id number] 5 7:00 AM EDT Pharmacy Neurology L[address] [place] [phone] Lore, Pharmacist Neurology 100 [facility] [place] [phone] Scheduled Procedures Name Priority Associated Diagnoses Date/Ti [...] this encounter Medical Devices Implanted Type Area Curtains And Draperies Salesperson Device Identifier Shelf Expiration Date Model / Serial / Lot Port Pwr Mri Isp Profile - [id number] Implanted:Qty : 1 on 08/09/2015 by Terrance Curry MD [place] [facility] Left: Chest CR BARD : PERIPHERAL VASCULAR 05/02/2017 [id number] / / [id number] Description:27 length of cat heter Set Sys Ots 11-6t 165cm - [id number] Implanted:Qty : 1 on 02/13/2024 by Anita Ha MD at OR [facility] [employer] [id number] 01/03/2025 100. 10 / / [id number] documented as of this encounter Advance Directives [...] Agents on File Name Relationship Healthcare Agent [facility] Communication Lashanda PhillipsJerome Mother First Alternate Health Care Agent (per Health Care Power of Salesforce Administrator document) Care Teams Drawer Upfitter Relationship Specialty Start Date End Date Kimberly Figueroa MD 200 [place] [address] PCP - General Internal Medicine 02/21/21 documented as of this encounter
--- OUTSIDE RECORDS SUMMARY | 2024-04-13 04:51 | External Medical Summary | Summary of Care ---
Author Name Unknown Organization [facility] Address [address] [facility] [place] [address] Phone [phone] Care Team Providers Care Wet Chemistry Analyst Name Role Phone Kimberly Figueroa MD Primary Care Provider + Reason for Visit * Reason Onset Date Comments FYI 04/07/2024 Encounter Details Date Type Department Care Team (Late st Contact Info) Description 04/07/2024 Telephone Neurology [address] [place] [address] Services, Scheduling [address] [place] [address] FYI Allergies Active Allergy Reactions Criticality Noted [...] Active Topiramate 50 MG Oral Tablet (topAMAX)Indicati ons:CRM SOLUTION ARCHITECT demyelination (HCC) TAKE 1 TABLET BY MOUTH [...] Rizatriptan Benzoate 10 MG Oral Tablet (Maxalt)Indicatio ns:CRM SOLUTION ARCHITECT demyelination (HCC) one at onset. May repeat [...] 150 mgIndications:Depo-Provera contraceptive status 150 mg IM [id number] 02/08/2023 07/27/2025 Acti ve documented as of [...] ICD-10 update of inactive term ROCK RESEARCH OTHER*[id number] 11/17/2007 documented as of this encounter (statuses [...] 08/01/2009 01/01/2014 Overview (08/01/2009): Per Obesity Taxonomy CRM SOLUTION ARCHITECT demyelination 07/11/2009 09/17/2018 ADVANCE DIRECTIVE INFORMATION 07/03/2009 [...] concern or issue they are having: In [place] PT having a procedure on the for a bleeding ulcer that they will not perform unless PT gets cleared in Neurology for a possible MS flarr up. Please can Medical call Noe Pyle. How long has the issue been going on: Any additional details to add: no Phone number for nurse to call back: [phone] Are forms needed? no Medication Refill? no [...] no need to re-route Peds Neurology Pool- [facility] Neuro Retail Leader- [phone] (All messages get sent to the [facility] Neurology Pool Numbers- [place] and [place] patients - follow normal process Ops req [facility] [place]rology ([place])- [id number] Ops req NE Neurology ([place]- [facility] and [facility] clinics Only)- [id number] Neurosurgery Pool Numbers- [place] patients- follow normal process Ops req Neurosurgery [facility] ([place])- [id number] Ops req Neurosurgery [place] ([place] Only) [id number] documented in this encounter Plan of Treatment Upcoming Encounters Date Type Department Care Team (Latest Contact Info) Description 4 2:00 PM EST Office Visit Neurology Lore [address] Dr [address] [place] [phone] Frida Ramírez PA-C 100 [address] [facility] [place] [address] 4 11:40 AM EST Office Visit General Internal Medicine [facility] [place] [address] [facility] [place] [address] Kimberly Figueroa MD 200 [facility] [place] [address] 4 2:00 PM EST Hem/Onc Treatment Hematology/Onc ology Treatment, [place] [address] [place] [address] Catina, Chair 6 Hem Onc [facility] 200 [facility] [place] [address] 4 8:00 AM EST Hospital Encounter OR GL, Operating Room, [facility] - 4th Floor [address] [place] [phone] Anita Ha MD [address] [place] [address] 4 8:00 AM EST - 4 8:32 AM EST Surgery OR GLH, Operating Room, [facility] - 4th Floor [address] [place] [phone] Anita Ha MD [address] [place] [address] ESOPHAGOGASTRODUODENOSCOPY (EGD), FLEXIBLE, TRANSORAL, DIAGNOSTIC 4 10:00 AM EST Telemedicine Dermatology, Katarina Santos [address] [facility] [place] [address] Wb, Pharmacist Dermatology E [facility] [address] [facility] [place] [address] 4 10:00 AM EST Hem/Onc Treatment Hematology/Onc ology Treatment, [place] [address] [place] [address] Catina, Chair 3 Hem Onc [facility] 200 [facility] [place] [address] 5 2:30 PM EDT Office [facility] [place] [address] [place] [address] Tori Braxton, SAJAN [address] [place] [phone] 5 7:00 AM EDT Pharmacy Neurology L[address] [place] [phone] Lore, Pharmacist Neurology 100 [facility] [place] [phone] Scheduled Procedures Name Priority Associated Diagnoses Date/Ti [...] this encounter Medical Devices Implanted Type Area Processing Lead Device Identifier Shelf Expiration Date Model / Serial / Lot Port Pwr Mri Isp Profile - [id number] Implanted:Qty : 1 on 08/09/2015 by Terrance Curry MD [place] [facility] Left: Chest CR BARD : PERIPHERAL VASCULAR 05/02/2017 [id number] / / [id number] Description:27 length of cat heter Set Sys Ots 11-6t 165cm - [id number] Implanted:Qty : 1 on 02/13/2024 by Anita Ha MD at OR [facility] [employer] [id number] 01/03/2025 100. 10 / / [id number] documented as of this encounter Advance Directives [...] Agents on File Name Relationship Healthcare Agent [facility] p Communication Lashanda PhillipsJerome Mother First Alternate Health Care Agent (per Health Care Power of Ethylene Plant Helper document) Care Teams Wet Chemistry Analyst Relationship Specialty Start Date End Date Kimberly Figueroa MD 200 [place] [address] PCP - General Internal Medicine 02/21/21 documented as of this encounter
--- OUTSIDE RECORDS SUMMARY | 2024-04-13 04:52 | External Medical Summary | Summary of Care ---
Author Name Unknown Organization [facility] Address [address] [place] [address] Phone [phone] Care Team Providers Care Auto Former Machine Operator Name Role Phone Kimberly Figueroa MD Primary Care Provider + Reason for Visit * Reason Onset Date Comments Advice 03/31/2024 Encounter Details Date Type Department Care Team (Late st Contact Info) Description 03/31/2024 Telephone Hematology/Oncology [facility] [place] [address] [facility] [address] Services, Scheduling [address] [place] [address] Advice Allergies Active Allergy Reactions Criticality Noted Date Comments Cephalexin Hives 01/24/2010 As a small child Clindamycin Hives 12/30/2014 " And bad heartburn" As an adult about age 24 Methocarbamol Rash High 06/17/2016 Sulfa Antibiotics Hives 08/05/2006 As a small child Hydrocodone-Acetaminophen Itching 01/01/2014 documented as of this encounter (statuses as of 03/31/2024) Medications FLINTSTONES COMPLETE PO CHEW daily Act mari Cholecalciferol (VITAMIN D3) 5000 UNITS Tablet Take 1 Cap by mouth daily. Take with additonal 1000 units for total of 6000 units daily 30 Cap 11 09/28/19 16 Active Cranberry 500 MG Capsule Take 1 Capsule by mouth in the morning. 08/07/19 18 Active vitamin b-12 (CYANOCOBALAMIN) 1000 MCG/ML injection Inject 1,000 mcg into a large muscle every 30 days. [...] Active Topiramate 50 MG Oral Tablet (topAMAX)Indicati ons:FOIL OPERATOR demyelination (HCC) TAKE 1 TABLET BY MOUTH [...] Rizatriptan Benzoate 10 MG Oral Tablet (Maxalt)Indicatio ns:FOIL OPERATOR demyelination (HCC) one at onset. May repeat [...] 150 mgIndications:Depo-Provera contraceptive status 150 mg IM [id number] 02/08/2023 07/27/2025 Acti ve documented as of this encounter (statuses as of 03/31/2024) Active Problems Problem Noted Date Diagnosed Date [...] ICD-10 update of inactive term ROCK RESEARCH OTHER*[id number] 11/17/2007 documented as of this encounter (statuses as of 03/31/2024) Resolved Problems Problem Noted Date Diagnosed Date [...] Acute maxillary sinusitis 08/03/2015 MS (multiple sclerosis) 04/18/201506/2017 DVT of upper extremity (deep vein thrombosis) [...] 08/01/2009 01/01/2014 Overview (08/01/2009): Per Obesity Taxonomy FOIL OPERATOR demyelination 07/11/2009 09/17/2018 ADVANCE DIRECTIVE INFORMATION 07/03/2009 [...] as of this encounter (statuses as of 03/31/2024) Immunizations Name Administration Dates Next Due COVID-19 [...] encounter Miscellaneous Notes * Telephone Encounter - Pamela Montes OSA - 03/31/2024 2:40 PM EST Called back in and scheduled for 04/09 FYI nursing that this was now rescheduled * Telephone Encounter - Pamela Montes OSA - 03/31/2024 12:18 PM EST Left message * Telephone Encounter - An Acevedo OSA - 03/31/2024 10:50 AM EST Pt mother Lashanda calling asking if there is anyway that she can get her daughters Iron infusion rescheduled to 04/07. Please advise. documented in this encounter Plan of Treatment Upcoming Encounters Date Type Department Care Team (Latest Contact Info) Description 4 1:00 PM EST Office Visit Neurology Lore [address] [place] [address] Frida Ramírez PA-C [address] [facility] [place] [phone] 4 1:15 PM EST Hem/Onc Treatment Hematology/Onc ology Treatment, [place] [address] [place] [phone] Catina, Chair 4 Hem Onc [facility] 200 [facility] [place] [address] 4 11:40 AM EST Office Visit General Internal Medicine [facility] [place] [address] [place] [address] Kimberly Figueroa MD [address] [place] [address] 4 8:00 AM EST Hospital Encounter OR GL, Operating Room, [facility] - 4th Floor [address] [place] [address] Anita Ha MD [address] [place] [address] 4 8:00 AM EST - 4 8:32 AM EST Surgery OR [facility], Operating Room, [facility] - 4th Floor 400 [place] [address] Aniat Ha MD [address] [place] [address] ESOPHAGOGASTRODUODENOSCOPY (EGD), FLEXIBLE, TRANSORAL, DIAGNOSTIC 4 10:00 AM EST Telemedicine Dermatology, Katarina Santos [address] [place] [address] Wb, Pharmacist Dermatology E [facility] [address] [facility] [place] [address] 4 10:00 AM EST Hem/Onc Treatment Hematology/Onc ology Treatment, [place] [address] [place] [address] Catina, Chair 3 Hem Onc [address] [place] [address] 5 2:30 PM EDT Office Visit Hematology/Onc ology [place]enery [place] [address] [place] [address] Tori Braxton CRNP [address] [place] [address] 5 7:00 AM EDT Pharmacy Neurology Lore [address] [place] [address] Lore, Pharmacist Neurology [address] [place] [address] Scheduled Procedures Name Priority Associated Diagnoses Date/Ti [...] this encounter Medical Devices Implanted Type Area Call Or Contact Centre Manager Device Identifier Shelf Expiration Date Model / Serial / Lot Port Pwr Mri Isp Profile - [id number] Implanted:Qty : 1 on 08/09/2015 by Terrance Curry MD at OR [facility] Left: Chest CR BARD : PERIPHERAL VASCULAR 05/02/2017 [id number] / / [id number] Description:27 length of cat heter Set Sys [facility] 11-6t 165cm - [id number] Implanted:Qty : 1 on 02/13/2024 by Anita Ha MD at OR [facility] [employer] [id number] 01/03/2025 100. 10 / / [id number] documented as of this encounter Advance Directives [...] Care Agent (per Health Care Power of Media Account Executive document) Care Teams Auto Former Machine Operator Relationship Specialty Start Date End Date Kimberly Figueroa MD 200 [place] [address] PCP - General Internal Medicine 02/21/21 documented as of this encounter
--- OUTSIDE RECORDS SUMMARY | 2024-04-13 04:52 | External Medical Summary | Summary of Care ---
Author Name Unknown Organization [facility] Address [address] [facility] [address] Phone [phone] Care Team Providers Care Environmental Services Lead Name Role Phone Kimberly Figueroa MD Primary Care Provider + Reason for Visit * Reason Onset Date Comments Test Results Lab 03/15/2024 Medication Pre-auth 03/15/2024 Monoferric Encounter Details Date Type Department Care Team (Late st Contact Info) Description 03/15/2024 Telephone Hematology/Oncology [facility] [place] 200 [facility] [address] Tori Braxton CRNP [address] [place] [address] Test Results Lab; Medication Pre-auth (Mon... Allergies Active Allergy Reactions Criticality Noted Date Comments Cephalexin Hives 01/24/2010 As a small child Clindamycin Hives 12/30/2014 " And bad heartburn" As an adult about age 24 Methocarbamol Rash High 06/17/2016 Sulfa Antibiotics Hives 08/05/2006 As a small child Hydrocodone-Acetaminophen Itching 01/01/2014 documented as of this encounter (statuses as of 03/16/2024) Medications FLINTSTONES COMPLETE PO CHEW daily Act [...] Active Topiramate 50 MG Oral Tablet (topAMAX)Indicati ons:REMOTE SENSING SPECIALIST demyelination (HCC) TAKE 1 TABLET BY MOUTH [...] Rizatriptan Benzoate 10 MG Oral Tablet (Maxalt)Indicatio ns:REMOTE SENSING SPECIALIST demyelination (HCC) one at onset. May repeat [...] 03/12/2024 8:47 AM EST 03/03/20 24 Active Amoxicillin-Pot Clavulanate 875-125 MG Oral Tablet (Augmentin)Indica tions:Right otitis media, unspecified otitis media type,Rhinosinusit is Take 1 Tablet by mouth in the morning and 1 Tablet before bedtime. Do all this for 10 days. 20 Tablet 03/07/20 24 024 Active Hospital, Clinic, or Other Facility Administered Medication Ordered Dose Route Frequency Start Date End Date Status medroxyPROGESTERone acetate (Depo-Provera) inj BRYANNA 150 mgIndications:Depo-Provera contraceptive status 150 mg IM [id number] 02/08/2023 07/27/2025 Acti ve documented as of this encounter (statuses as of 03/16/2024) Active Problems Problem Noted Date Diagnosed Date [...] ICD-10 update of inactive term ROCK RESEARCH OTHER*[id number] 11/17/2007 documented as of this encounter (statuses as of 03/16/2024) Resolved Problems Problem Noted Date Diagnosed Date [...] 08/01/2009 01/01/2014 Overview (08/01/2009): Per Obesity Taxonomy REMOTE SENSING SPECIALIST demyelination 07/11/2009 09/17/2018 ADVANCE DIRECTIVE INFORMATION 07/03/2009 [...] as of this encounter (statuses as of 03/16/2024) Immunizations Name Administration Dates Next Due COVID-19 [...] Telephone Encounter - Pamela Montes OSA - 03/16/2024 3:02 PM EST Pt is scheduled and is aware * Telephone Encounter - Yusuf Bae RN - 03/16/2024 2:55 PM EST Called and spoke with patient. Advised her referral is completed and we will call her back to schedule. Scheduling- please call patient to schedule 2 hour apt "Monoferric" (Levy Braxton). Thank you. * Telephone Encounter - Aba Peacock OSA - 03/16/2024 2:25 PM EST Patient called in asking to speak with Vandana. Please give her a call back * Telephone Encounter - Yusuf Bae RN - 03/16/2024 2:19 PM EST Pt agreeable to Monoferric. Awaiting authorization. * Telephone Encounter - Vandana Viera LPN - 03/16/2024 1:57 PM EST Left message on patient's voicemail, return phone number provided. My G sent. * Telephone Encounter - Vandana Viera LPN - 03/16/2024 1:53 PM EST Order received Monoferric [place] plan built and routed to provider Awaiting prior authorization before scheduling patient. * Telephone Encounter - Tori Braxton CRNP - 03/15/2024 5:48 PM EST Results for orders placed or performed in visit on 03/13/24 IRON SCREEN, INCLUDING TIBC Result Value Ref Range Iron 28 (L) 33 - 151 ug/dL Iron Binding Capacity 378 250 - 425 ug/dL Transferrin Saturation Percent 7 (L) 15 - 55 % FERRITIN Result Value Ref Range Ferritin 18 13 - 150 ng/mL COMPREHENSIVE METABOLIC PANEL Result Value Ref Range BUN 3 (L) 6 - 20 mg/dL CREATININE 0.5 0.5 - 1.0 mg/dL EGFR >90 >=60 mL/min SODIUM 133 (L) 135 - 146 mmol/L POTASSIUM 4.1 3.5 - 5.1 mmol/L CHLORIDE 101 98 - 107 mmol/L CO2 19 (L) 22 - 32 mmol/L ANION GAP 13 7 - 15 mmol/L GLUCOSE 93 70 - 120 mg/dL Albumin 3.6 (L) 3.8 - 5.0 g/dL AST 90 (H) 10 - 35 U/L Alkaline Phosphatase 247 (H) 35 - 130 U/L Bilirubin, Total 0.8 <=1.2 mg/dL CALCIUM 8.6 8.4 - 10.2 mg/dL Protein 5.9 (L) 6.0 - 8.3 g/dL ALT 28 10 - 35 U/L VITAMIN B12 Result Value Ref Range Vitamin B12 791 232 - 1,245 pg/mL FOLIC ACID Result Value Ref Range Folic Acid 5.6 >4.5 ng/mL CBC Result Value Ref Range WBC 3.87 (L) 4.00 - 10.80 K/uL RBC 2.94 3.85 - 5.15 M/uL HGB 8.0 (L) 12.0 - 15.3 g/dL HCT 26.1 (L) 36.0 - 45.2 % MCV 88.8 81.5 - 97.5 fL MCH 27.2 27.0 - 34.0 pg MCHC 30.7 32.0 - 36.0 g/dL RDW 17.4 11.5 - 15.5 % PLT 253 140 - 400 K/uL MPV 9.1 6.6 - 11.1 fL DIFFERENTIAL, AUTOMATED Result Value Ref Range WBC 3.87 (L) 4.00 - 10.80 K/uL Neutrophils % 60.9 40.0 - 75.0 % Lymphocytes % 19.1 18.0 - 42.0 % Monocytes % 18.1 (H) 1.0 - 11.0 % Eosinophils % 1.6 0.0 - 6.0 % Basophils % 0.3 0.0 - 2.0 % Absolute Neutrophils 2.36 1.80 - 7.70 K/uL Absolute Lymphocytes 0.74 (L) 1.00 - 4.80 K/ul Absolute Monocytes 0.70 0.00 - 1.10 K/uL Absolute Eosinophils 0.06 0.00 - 0.70 K/uL Absolute Basophils 0.01 0.00 - 0.20 K/uL *Note: Due to a large number of results and/or encounters for the requested time period, some results have not been displayed. A complete set of results can be found in Results Review. CHRISTOPHE present. Order placed for IV Monoferric 1,000 mg as a single dose. Please repeat CBCd, iron screen and ferritin to align with mediport flush approximately one month after infusion. Please make patient aware and assist with scheduling if agreeable. documented in this encounter Plan of Treatment Upcoming Encounters Date Type Department Care Team (Latest Contact Info) Description 4 9:30 AM EST Hem/Onc Treatment Hematology/Onc ology Treatment, [place] [address] [place] [address] Catian, Chair 7 Hem Onc Scene 200 [facility] [address] 4 1:00 PM EST Office Visit Neurology Lore [address] [place] [phone] Frida Ramírez PA-C [address] [facility] [place] [phone] 4 3:20 PM EST Office Visit General Internal Medicine [facility] Michelle Dominique [address] [place] [address] Kimberly Figueroa MD [address] [place] [address] 4 8:00 AM EST Hospital Encounter OR GL, Operating Room, [facility] - 4th Floor 400 [facility] [place] [phone] Anita Ha MD [address] [place] [address] 4 8:00 AM EST - 4 8:32 AM EST Surgery OR GL, Operating Room, [facility] - 4th Floor 400 [facility] [place] [phone] Anita Ha MD [address] [place] [address] ESOPHAGOGASTRODUODENOSCOPY (EGD), FLEXIBLE, TRANSORAL, DIAGNOSTIC 4 10:00 AM EST Telemedicine Dermatology, Katarina Santos [address] [place] [address] Wb, Pharmacist Dermatology [address] [place] [address] 4 10:00 AM EST Hem/Onc Treatment Hematology/Onc ology Treatment, [place] [address] [place] [address] Catina, Chair 3 Hem Onc Sc[address]ery [address] [place] [address] 5 2:30 PM EDT Office Visit Hematology/Onc ology Alexey Dominique [place] [address] [place], [place] [address] Tori Braxton CRNP 400 [facility] [place] [address] 5 7:00 AM EDT Pharmacy Neurology Lore [address] [place] [phone] Lore, Pharmacist Neurology 100 [facility] [place] [address] Scheduled Procedures Name Priority [...] this encounter Medical Devices Implanted Type Area Safety Companion Device Identifier Shelf Expiration Date Model / Serial / Lot Port Pwr Mri Isp Profile - [id number] Implanted:Qty : 1 on 08/09/2015 by Terrance Curry MD at [place] [facility] [place] Left: Chest CR BARD : PERIPHERAL VASCULAR 05/02/2017 [id number] / / [id number] Description:27 length of cat heter Set Sys Otsc 11-6t 165cm - [id number] Implanted:Qty : 1 on 02/13/2024 by Anita Ha MD at OR [facility] [employer] [id number] 01/03/2025 100. 10 / / [id number] documented as of this encounter Visit Diagnoses Diagnosis Iron deficiency anemia, unspecified iron deficiency anemia type- Primary H/O gastric bypass Bariatric surgery status Gastrointestinal hemorrhage with melena Enteroenteric fistula Fistula of intestine, excluding rectum and anus documented in this encounter Advance Directives * Full Code [...] Care Agent (per Health Care Power of Paper Sales Manager document) Care Teams Environmental Services Lead Relationship Specialty Start Date End Date Kimberly Figueroa MD 200 [place] [address] PCP - General Internal Medicine 02/21/21 documented as of this encounter
--- OUTSIDE RECORDS SUMMARY | 2024-04-13 04:52 | External Medical Summary | Summary of Care ---
Author Name Unknown Organization [facility] Address [address] [facility] [address] Phone [phone] Care Team Providers Care Filters Assembler Name Role Phone Kimberly Figueroa MD Primary Care Provider + Reason for Visit * Reason Onset Date Comments Test Results Lab 03/15/2024 Medication Pre-auth 03/15/2024 Monoferric Encounter Details Date Type Department Care Team (Late st Contact Info) Description 03/15/2024 Telephone Hematology/Oncology [facility] [place] 200 [facility] [address] Tori Braxton CRNP [address] [place] [address] Test Results Lab; [...] Active Topiramate 50 MG Oral Tablet (topAMAX)Indicati ons:PETROLEUM REFINERY LABORER demyelination (HCC) TAKE 1 TABLET BY MOUTH [...] Rizatriptan Benzoate 10 MG Oral Tablet (Maxalt)Indicatio ns:PETROLEUM REFINERY LABORER demyelination (HCC) one at onset. May repeat [...] 150 mgIndications:Depo-Provera contraceptive status 150 mg IM [id number] 02/08/2023 07/27/2025 Acti ve documented as of [...] ICD-10 update of inactive term ROCK RESEARCH OTHER*[id number] 11/17/2007 documented as of this encounter (statuses [...] 08/01/2009 01/01/2014 Overview (08/01/2009): Per Obesity Taxonomy PETROLEUM REFINERY LABORER demyelination 07/11/2009 09/17/2018 ADVANCE DIRECTIVE INFORMATION 07/03/2009 [...] of Assessment Author Yes 01/22/2024 10:09 PM EDNida Fierro RN documented as of this encounter Mental Status * Because of a physical, mental, or emotional condition, do you have serious difficulty concentrating, remembering, or making decisions? (5 years old or older) Answer Entry Date Author No 01/22/2024 10:09 PM EDT Nida Culp RN documented in this encounter Miscellaneous Notes * Telephone Encounter - Aba Peacock OSA [...] 03/16/2024 1:53 PM EST Order received Monoferric [place] plan built and routed to provider Awaiting [...] [address]ore [address] [place] [phone] Frida Ramírez PA-C [address] [facility] [place] [phone] 4 3:20 PM EST Office Visit [facility] Internal [facility] 200 [facility] [place] [address] Kimberly Figueroa MD 200 [facility] [place] [address] 4 8:00 AM EST Hospital Encounter OR [facility], Operating Room, [facility] - 4th Floor [address] [place] [phone] Anita Ha MD [address] [place] [address] 4 8:00 AM EST - 4 8:32 AM EST Surgery OR GL, Operating Room, [facility] - 4th Floor [address] [place] [phone] Anita Ha MD 132 [place] [address] ESOPHAGOGASTRODUODENOSCOPY (EGD), FLEXIBLE, TRANSORAL, DIAGNOSTIC 4 10:00 AM EST Telemedicine Dermatology, Katarina Santos [address] [facility] [place] [address] Wb, Pharmacist Dermatology E [facility] [address] [facility] [place] [address] 4 10:00 AM EST Hem/Onc Treatment Hematology/Onc ology Treatment, [place] [address] [place] [address] Catina, Chair 3 Hem Onc [facility] 200 [facility] [place] [address] 5 2:30 PM EDT Office Visit Hematology/Onc ology [facility] [place] 200 [facility] [place] [address] Tori Braxton, SAJAN 400 [facility] [place] [phone] 5 7:00 AM EDT Pharmacy Neurology L[address] [place] [phone] Lore, Pharmacist Neurology 100 [facility] [place] [address] Scheduled Procedures Name Priority Associated Diagnoses [...] this encounter Medical Devices Implanted Type Area Energy Trader Device Identifier Shelf Expiration Date Model / Serial / Lot Port Pwr Mri Isp Profile - [id number] Implanted:Qty : 1 on 08/09/2015 [place] Terrance Curry [place] [facility] Chest CR BARD : PERIPHERAL VASCULAR 05/02/2017 [id number] / / [id number] Description:27 length of cat heter Set Sys Otsc 11-6t 165cm - [id number] Implanted:Qty : 1 on 02/13/2024 by Anita Ha MD at OR [facility] [employer] [id number] 01/03/2025 100. 10 / / [id number] documented as of this encounter Visit Diagnoses [...] Care Agent (per Health Care Power of General Accounting Manager document) Care Teams Filters Assembler Relationship Specialty Start Date End Date Kimberly Figueroa MD 200 [place] [address] PCP - General Internal Medicine 02/21/21 documented as of this encounter
--- OUTSIDE RECORDS SUMMARY | 2024-04-13 04:52 | External Medical Summary | Summary of Care ---
Author Name Unknown Organization [facility] Address [address] [place] [address] Phone [phone] Care Team Providers Care Chute Feeder Name Role Phone Kimberly Figueroa MD Primary Care Provider + Reason for Visit * Reason Onset Date Comments Advice 03/31/2024 Encounter Details Date Type Department Care Team (Late st Contact Info) Description 03/31/2024 Telephone Hematology/Oncology [facility] [place] [address] [facility] [address] Services, Scheduling [address] [place] [address] Advice Allergies Active Allergy Reactions Criticality Noted [...] Active Topiramate 50 MG Oral Tablet (topAMAX)Indicati ons:PARTS COORDINATOR demyelination (HCC) TAKE 1 TABLET BY MOUTH [...] Rizatriptan Benzoate 10 MG Oral Tablet (Maxalt)Indicatio ns:PARTS COORDINATOR demyelination (HCC) one at onset. May repeat [...] 150 mgIndications:Depo-Provera contraceptive status 150 mg IM [id number] 02/08/2023 07/27/2025 Acti ve documented as of [...] ICD-10 update of inactive term ROCK RESEARCH OTHER*[id number] 11/17/2007 documented as of this encounter (statuses [...] 08/01/2009 01/01/2014 Overview (08/01/2009): Per Obesity Taxonomy PARTS COORDINATOR demyelination 07/11/2009 09/17/2018 ADVANCE DIRECTIVE INFORMATION 07/03/2009 [...] Office Visit Neurology Lore [address] [place] [phone] Frida Ramírez PA-Gelacio [address] [facility] [place] [phone] 4 11:40 AM EST Office Visit General Internal Medicine [facility] 200 [facility] [place] [address] Kimberly Figueroa MD 200 [facility] [place] [address] 4 8:00 AM EST Hospital Encounter OR GL, Operating Room, [facility] - 4th Floor 400 [facility] [phone] Anita Ha MD [address] [place] [address] 4 8:00 AM EST - 4 8:32 AM EST Surgery OR [facility], Operating Room, [facility] - 4th Floor 400 [facility] [phone] Anita Ha MD [address] [place] [address] ESOPHAGOGASTRODUODENOSCOPY (EGD), FLEXIBLE, TRANSORAL, DIAGNOSTIC 4 10:00 AM EST Telemedicine Dermatology, Katarina Santos [address] [facility] [place] [address] Wb, Pharmacist Dermatology E [facility] [address] [facility] [place] [address] 4 10:00 AM EST Hem/Onc Treatment Hematology/Onc ology Treatment, [place] [address] [place] [address] Catina, Chair 3 Hem Onc [facility] [address] [place] [address] 5 2:30 PM EDT Office Visit Hematology/Onc ology [facility] [place] [address] [place] [address] Tori Braxton, DYE LAB TECHNICIAN 400 [facility] [phone] 5 7:00 AM EDT Pharmacy Neurology L[address] [place] [phone] Lore, Pharmacist Neurology 100 [facility] [place]ONZ[place] [phone] Scheduled Procedures Name Priority Associated Diagnoses Date/Ti [...] this encounter Medical Devices Implanted Type Area Supply Chain Specialist Device Identifier Shelf Expiration Date Model / Serial / Lot Port Pwr Mri Isp Profile - [id number] Implanted:Qty : 1 on 08/09/2015 by Terrance Curry MD at [place] [facility] [place] Left: Chest CR BARD : PERIPHERAL VASCULAR 05/02/2017 [id number] / / [id number] Description:27 length of cat heter Set Sys Otsc 11-6t 165cm - [id number] Implanted:Qty : 1 on 02/13/2024 by Anita Ha MD at OR [facility] [employer] [id number] 01/03/2025 100. 10 / / [id number] documented as of this encounter Advance Directives [...] Agents on File Name Relationship Healthcare Agent [facility] Communication Lashanda Jerome Mother First Alternate Health Care Agent (per Health Care Power of Machine Spreader document) Care Teams Chute Feeder Relationship Specialty Start Date End Date Kimberly Figueroa MD [address] [place] [address] PCP - General Internal Medicine 02/21/21 documented as of this encounter
--- OUTSIDE RECORDS SUMMARY | 2024-04-13 04:52 | External Medical Summary | Summary of Care ---
Author Name Unknown Organization [facility] Address [address] [facility] [address] Phone [phone] Care Team Providers Care Flow Machine Operator Name Role Phone Kimberly Figueroa MD Primary Care Provider + Reason for Visit * Reason Onset Date Comments Advice 04/08/2024 Encounter Details Date Type Department Care Team (Late st Contact Info) Description 04/08/2024 Telephone Hematology/Oncology [facility] [place] [address] [facility] [phone] Services, Scheduling [address] [place] [address] Advice Allergies Active Allergy Reactions Criticality Noted [...] Active Topiramate 50 MG Oral Tablet (topAMAX)Indicati ons:HAND CULTIVATOR demyelination (HCC) TAKE 1 TABLET BY MOUTH [...] Rizatriptan Benzoate 10 MG Oral Tablet (Maxalt)Indicatio ns:HAND CULTIVATOR demyelination (HCC) one at onset. May repeat [...] 150 mgIndications:Depo-Provera contraceptive status 150 mg IM [id number] 02/08/2023 07/27/2025 Acti ve documented as of [...] ICD-10 update of inactive term ROCK RESEARCH OTHER*[id number] 11/17/2007 documented as of this encounter (statuses [...] 08/01/2009 01/01/2014 Overview (08/01/2009): Per Obesity Taxonomy HAND CULTIVATOR demyelination 07/11/2009 09/17/2018 ADVANCE DIRECTIVE INFORMATION 07/03/2009 [...] Telephone Encounter - Pamela Montes OSA - 04/09/2024 8:22 AM EST Rescheduled for Saturday * Telephone Encounter - An Acevedo OSA - 04/08/2024 4:12 PM EST cancelling appt for tomorrow, mother jannette jerome calling in regards to cancelling, will needrescheduled documented in this encounter Plan of Treatment Upcoming Encounters Date Type Department Care Team (Latest Contact Info) Description 11:40 AM EST Office Visit General Internal Medicine [facility] 200 [facility] [place] [address] Kimberly Figueroa MD 200 [place] [address] 4 2:00 PM EST Hem/Onc Treatment Hematology/Onc ology Treatment, Section 200 [place] [phone] Catina, Chair 6 Hem Onc [address] [place] [address] 4 8:00 AM EST Hospital Encounter [place] GL, Operating Room, [facility] - 4th Floor [address] [place] [phone] Anita Ha MD [address] [place] [address] 4 8:00 AM EST - 4 8:32 AM EST Surgery OR [facility], Operating Room, [facility] - 4th Floor [address] [place] [phone] Anita Ha MD [address] [place] [address] ESOPHAGOGASTRODUODENOSCOPY (EGD), FLEXIBLE, TRANSORAL, DIAGNOSTIC 4 10:00 AM EST Telemedicine Dermatology, Katarina Santos [address] [facility] [place] [address] Wb, Pharmacist Dermatology E [facility] [address] [facility] [place] [address] 4 10:00 AM EST Hem/Onc Treatment Hematology/Onc ology Treatment, [place] [address] [place] [address] Catina, Chair 3 Hem Onc [facility] [address] [place] [address] 5 2:30 PM EDT Office Visit Hematology/Onc ology [facility] Section [address] [place] [address] Tori Braxton, SAJAN 400 [facility] [place] [address] 5 7:00 AM EDT Pharmacy Neurology L[address] [place] [phone] Lore, Pharmacist Neurology 100 [facility] [place] G[place] [phone] Scheduled Procedures Name Priority Associated Diagnoses Date/Ti [...] this encounter Medical Devices Implanted Type Area Electrical And Instrument Engineer Device Identifier Shelf Expiration Date Model / Serial / Lot Port Pwr Mri Isp Profile - [id number] Implanted:Qty : 1 on 08/09/2015 by Terrance Curry [place] [facility] Chest CR BARD : PERIPHERAL VASCULAR 05/02/2017 [id number] / / [id number] Description:27 length of cat heter Set Sys Otsc 11-6t 165cm - [id number] Implanted:Qty : 1 on 02/13/2024 by Anita Ha MD at OR [facility] [employer] [id number] 01/03/2025 100. 10 / / [id number] documented as of this encounter Advance Directives [...] Agents on File Name Relationship Healthcare Agent [facility] p Communication Lashanda Jerome Mother First Alternate Health Care Agent (per Health Care Power of Events Traffic Controller document) Care Teams Flow Machine Operator Relationship Specialty Start Date End Date Kimberly Figueroa MD [address] [place] [address] PCP - General Internal Medicine 02/21/21 documented as of this encounter
--- OUTSIDE RECORDS SUMMARY | 2024-04-13 04:52 | External Medical Summary | Summary of Care ---
Author Name Unknown Organization [facility] Address [address] [facility] [address] Phone [phone] Care Team Providers Care International Marketing Executive Name Role Phone Kimberly Figueroa MD Primary Care Provider + Reason for Visit * Reason Onset Date Comments Test Results Lab 03/15/2024 Medication Pre-auth 03/15/2024 Monoferric Encounter Details Date Type Department Care Team (Late st Contact Info) Description 03/15/2024 Telephone Hematology/Oncology [facility] [place] [address] [facility] [address] Tori Braxton CRNP [address] [place] [address] Test Results Lab; [...] Active Topiramate 50 MG Oral Tablet (topAMAX)Indicati ons:INDUSTRIAL TWISTING MACHINE OPERATOR demyelination (HCC) TAKE 1 TABLET BY [...] Rizatriptan Benzoate 10 MG Oral Tablet (Maxalt)Indicatio ns:INDUSTRIAL TWISTING MACHINE OPERATOR demyelination (HCC) one at onset. May [...] 150 mgIndications:Depo-Provera contraceptive status 150 mg IM [id number] 02/08/2023 07/27/2025 Acti ve documented as of [...] ICD-10 update of inactive term ROCK RESEARCH OTHER*[id number] 11/17/2007 documented as of this encounter (statuses [...] 08/01/2009 01/01/2014 Overview (08/01/2009): Per Obesity Taxonomy INDUSTRIAL TWISTING MACHINE OPERATOR demyelination 07/11/2009 09/17/2018 ADVANCE DIRECTIVE INFORMATION [...] of Assessment Author Yes 01/22/2024 10:09 PM EDT Nida Culp RN documented as of this encounter Mental Status * Because of a physical, mental, or emotional condition, do you have serious difficulty concentrating, remembering, or making decisions? (5 years old or older) Answer Entry Date Author No 01/22/2024 10:09 PM EDT Nida Culp RN documented in this encounter Miscellaneous Notes * Telephone Encounter - Yusuf Bae RN - 03/16/2024 2:19 PM EST Pt agreeable to Monoferric. Awaiting authorization. * Telephone Encounter - Vandana Viera LPN - 03/16/2024 1:57 PM EST Left message on patient's voicemail, return phone number provided. My G sent. * Telephone Encounter - Vandana Viera LPN - 03/16/2024 1:53 PM EST Order received Monoferric [place] plan built and routed to provider Awaiting [...] 4 1:00 PM EST Office Visit Neurology Lisa [address] [place] [phone] Frida Ramírez PA-C [address] [facility] [place] [phone] 4 3:20 PM EST Office Visit General Internal Medicine [facility] 200 [facility] [place] [address] Kimberly Figueroa MD [address] [place] [address] 4 8:00 AM EST Hospital Encounter OR [facility], Operating Room, [facility] - 4th Floor [address] [place] [phone] Anita Ha MD [address] [place] [address] 4 8:00 AM EST - 4 8:32 AM EST Surgery OR [facility], Operating Room, [facility] - 4th Floor [address] [place] [phone] Anita Ha MD [address] [place] [address] ESOPHAGOGASTRODUODENOSCOPY (EGD), FLEXIBLE, TRANSORAL, DIAGNOSTIC 4 10:00 AM EST Telemedicine Dermatology, Katarina Santos [address] [facility] [place] [address] Wb, Pharmacist Dermatology E [facility] [address] [facility] [place] [address] 4 10:00 AM EST Hem/Onc Treatment Hematology/Onc ology Treatment, [place] [address] [place] [address] Catina, Chair 3 Hem Onc [facility] [address] [place], [place] [address] 5 2:30 PM EDT Office Visit Hematology/Onc ology [facility] [address] [place] [address] Tori Braxton, SAJAN [address] [facility] [address] 5 7:00 AM EDT Pharmacy Neurology Lisa [address] [place], [place] [address] Lisa, Pharmacist Neurology [address] [place] [address] LISA, [place] [id number] Scheduled Procedures Name Priority Associated Diagnoses Date/Ti [...] this encounter Medical Devices Implanted Type Area Medical Instructor Device Identifier Shelf Expiration Date Model / Serial / Lot Port Pwr Mri Isp Profile - [id number] Implanted:Qty : 1 on 08/09/2015 [place] [facility] [place] Chest CR BARD : PERIPHERAL VASCULAR 05/02/2017 [id number] / / [id number] Description:27 length of cat heter Set Sys Otsc 11-6t 165cm - [id number] Implanted:Qty : 1 on 02/13/2024 by Anita Ha MD at OR [facility] [employer] [id number] 01/03/2025 100. 10 / / [id number] documented as of this encounter Visit Diagnoses [...] Agents on File Name Relationship Healthcare Agent [facility] p Communication Lashanda PhillipsJerome Mother First Alternate Health Care Agent (per Health Care Power of Heart Surgeon document) Care Teams International Marketing Executive Relationship Specialty Start Date End Date Kimberly Figueroa MD 200 [facility] [place] [address] PCP - General Internal Medicine 02/21/21 documented as of this encounter
--- OUTSIDE RECORDS SUMMARY | 2024-04-13 04:52 | External Medical Summary | Summary of Care ---
Author Name Unknown Organization [facility] Address [address] [facility] [address] Phone [phone] Care Team Providers Care Senior Designer/Art Director Name Role Phone Kimberly Figueroa MD Primary Care Provider + Reason for Visit * Reason Onset Date Comments Test Results Lab 03/15/2024 Medication Pre-auth 03/15/2024 Monoferric Encounter Details Date Type Department Care Team (Late st Contact Info) Description 03/15/2024 Telephone Hematology/Oncology [facility] [place] [facility] [address] Tori Braxton CRNP [address] [place] [address] Test Results Lab; [...] Active Topiramate 50 MG Oral Tablet (topAMAX)Indicati ons:DEBURR OPERATOR demyelination (HCC) TAKE 1 TABLET BY [...] Rizatriptan Benzoate 10 MG Oral Tablet (Maxalt)Indicatio ns:DEBURR OPERATOR demyelination (HCC) one at onset. May [...] 150 mgIndications:Depo-Provera contraceptive status 150 mg IM [id number] 02/08/2023 07/27/2025 Acti ve documented as of [...] ICD-10 update of inactive term ROCK RESEARCH OTHER*[id number] 11/17/2007 documented as of this encounter (statuses [...] 08/01/2009 01/01/2014 Overview (08/01/2009): Per Obesity Taxonomy DEBURR OPERATOR demyelination 07/11/2009 09/17/2018 ADVANCE DIRECTIVE INFORMATION [...] Entry Date Author No 01/22/2024 10:09 PM RUBIOT Nida Culp RN documented in this encounter [...] 03/16/2024 1:53 PM EST Order received Monoferric [place] plan built and routed to provider Awaiting [...] [place] [phone] Frida Ramírez PA-C [address] [facility] [place] [address] 4 3:20 PM EST Office Visit General Internal Medicine [place] [facility] [place] [address] [place] [address] Kimberly Figueroa MD [address] [facility] [place] [address] 4 8:00 AM EST Hospital Encounter [facility], Operating Room, [facility] - 4th Floor [address] [place] [address] Anita Ha MD [address] [place] [address] 4 8:00 AM EST - 4 8:32 AM EST Surgery OR [facility], Operating Room, [facility] - 4th Floor [address] [place] [address] Anita Ha MD [address] [place] [address] ESOPHAGOGASTRODUODENOSCOPY (EGD), FLEXIBLE, TRANSORAL, DIAGNOSTIC 4 10:00 AM EST Telemedicine Dermatology, Katarina Santos [address] [facility] [place] [address] Wb, Pharmacist Dermatology E [facility] [address] [facility] [place] [address] 4 10:00 AM EST Hem/Onc Treatment Hematology/Onc ology Treatment, [place] [address] [place] [phone] Catina, Chair 3 Hem Onc [address] 200 [facility] [place] [address] 5 2:30 PM EDT Office Visit Hematology/Onc ology [address] [place] [address] [place] [phone] Tori Braxton CRNP [address] [place] [address] 5 7:00 AM EDT Pharmacy Neurology Lore [address] [place] [address] Lore, Pharmacist Neurology [address] [place] [address] Scheduled Procedures Name Priority Associated Diagnoses Date/Ti [...] this encounter Medical Devices Implanted Type Area Wood Mill Supervisor Device Identifier Shelf Expiration Date Model / Serial / Lot Port Pwr Mri Isp Profile - [id number] Implanted:Qty : 1 on 08/09/2015 by Terrance Curry MD [place] [facility] [place]: Chest CR BARD : PERIPHERAL VASCULAR 05/02/2017 [id number] / / [id number] Description:27 length of cat heter Set Sys [facility] 11-6t 165cm - [id number] Implanted:Qty : 1 on 02/13/2024 by Anita Ha MD at OR [facility] [facility] [id number] 01/03/2025 100. 10 / / [id number] documented as of this encounter Visit Diagnoses [...] Care Agent (per Health Care Power of Caustic Room Attendant document) Care Teams Senior Designer/Art Director Relationship Specialty Start Date End Date Kimberly Figueroa MD 200 [facility] [place] [address] PCP - General Internal Medicine 02/21/21 documented as of this encounter
--- OUTSIDE RECORDS SUMMARY | 2024-04-13 04:52 | External Medical Summary | Summary of Care ---
Author Name Unknown Organization [facility] Address [address] [facility] [place] [address] Phone [phone] Care Team Providers Care Manager Configuration Name Role Phone Kimberly Figueroa MD Primary Care Provider + Reason for Visit * Reason Onset Date Comments FYI 04/07/2024 Encounter Details Date Type Department Care Team (Late st Contact Info) Description 04/07/2024 Telephone Neurology [address] [place] [phone] Services, Scheduling [address] [place] [address] FYI Allergies Active Allergy Reactions Criticality Noted [...] Active Topiramate 50 MG Oral Tablet (topAMAX)Indicati ons:GASKET FORMER demyelination (HCC) TAKE 1 TABLET BY MOUTH [...] Rizatriptan Benzoate 10 MG Oral Tablet (Maxalt)Indicatio ns:GASKET FORMER demyelination (HCC) one at onset. May repeat [...] 150 mgIndications:Depo-Provera contraceptive status 150 mg IM [id number] 02/08/2023 07/27/2025 Acti ve documented as of [...] ICD-10 update of inactive term ROCK RESEARCH OTHER*[id number] 11/17/2007 documented as of this encounter (statuses [...] 08/01/2009 01/01/2014 Overview (08/01/2009): Per Obesity Taxonomy GASKET FORMER demyelination 07/11/2009 09/17/2018 ADVANCE DIRECTIVE INFORMATION 07/03/2009 [...] Encounter - Flis, Daija, BIANCA - 04/09/2024 9:33 AM EST Lashanda (pts [...] concern or issue they are having: In [place] PT having a procedure on the for a bleeding ulcer that they will not perform unless PT gets cleared in Neurology for a possible MS flarr up. Please can Medical call Mom Lashanda. How long has the issue been going on: Any additional details to add: no Phone number for nurse to call back: [phone] Are forms needed? no Medication Refill? no [...] no need to re-route Peds Neurology Pool- [facility] Neuro Wrapping Machine Tender- [id number] (All messages get sent to the [facility]) Neurology Pool Numbers- [place] and [place] patients - follow normal process [place] [facility] [place] [id number] Ops req [place] ([place]- [facility] and [facility] Only)- [id number] Neurosurgery Pool Numbers- [place] patients- follow normal process Ops [place] [facility] [place] [id number] Ops req Neurosurgery [facility] ([place]atarina Santos Only) [id number] documented in this encounter Plan of Treatment Upcoming Encounters Date Type Department Care Team (Latest Contact Info) Description 4 11:40 AM EST Office Visit General Internal Medicine [facility] [address] [place] [address] Kimberly Figueroa MD 200 [facility] [place] [address] 4 2:00 PM EST Hem/Onc Treatment Hematology/Onc ology Treatment, [place] 200 [facility] [address] Catina, Chair 6 Hem Onc [facility] 200 [facility] [place] [address] 4 8:00 AM EST Hospital Encounter [place] [facility], Operating Room, [facility] - 4th Floor [address] [place] [address] Anita Ha MD [address] [place] [address] 4 8:00 AM EST - 4 8:32 AM EST Surgery OR [facility], Operating Room, [facility] - 4th Floor [address] [place] [address] Anita Ha MD [address] [place] [address] ESOPHAGOGASTRODUODENOSCOPY (EGD), FLEXIBLE, TRANSORAL, DIAGNOSTIC 4 10:00 AM EST Telemedicine Dermatology, Katarina Santos [address] [facility] [place] [address] Wb, Pharmacist Dermatology [address] [facility] [place] [address] 4 10:00 AM EST Hem/Onc Treatment Hematology/Onc ology Treatment, [place] [address] [place] [address] Catina, Chair 3 Hem Onc [address] [place] [address] 5 2:30 PM EDT Office [facility] [place] [address] [place], [place] [address] Tori Braxton, SAJAN 400 [place] [address] 5 7:00 AM EDT Pharmacy Neurology L[address] [place], [place] [address] Lore, Pharmacist Neurology 100 [facility] [place] [address] Scheduled Procedures Name Priority [...] this encounter Medical Devices Implanted Type Area Table Maker Device Identifier Shelf Expiration Date Model / Serial / Lot Port Pwr Mri Isp Profile - [id number] Implanted:Qty : 1 on 08/09/2015 [place] [facility] [place] Chest CR BARD : PERIPHERAL VASCULAR 05/02/2017 [id number] / / [id number] Description:27 length of cat heter Set Sys Otsc 11-6t 165cm - [id number] Implanted:Qty : 1 on 02/13/2024 by Anita Ha MD at OR [facility] [employer] [id number] 01/03/2025 100. 10 / / [id number] documented as of this encounter Advance Directives [...] Care Agent (per Health Care Power of Business Center Attendant document) Care Teams Manager Configuration Relationship Specialty Start Date End Date Kimberly Figueroa MD [address] [place] [address], [place] [address] PCP - General Internal Medicine 02/21/21 documented as of this encounter
--- OUTSIDE RECORDS SUMMARY | 2024-04-13 04:52 | External Medical Summary | Summary of Care ---
Author Name Unknown Organization [facility] Address [address] [place] [address] Phone [phone] Care Team Providers Care Billing Clinician Name Role Phone Kimberly Figueroa MD Primary Care Provider + Reason for Visit * Reason Onset Date Comments Precert Future 03/09/2024 Ocrevus Encounter Details Date Type Department Care Team (Late st Contact Info) Description 03/09/2024 Telephone Hematology/Oncology [facility] [address] [place] [facility] [place] [address] [facility] [address] [place] [address] Precert Future (Ocrevus) Allergies Active Allergy Reactions Criticality Noted Date Comments Cephalexin Hives 01/24/2010 As a small child Clindamycin Hives 12/30/2014 " And bad heartburn" As an adult about age 24 Methocarbamol Rash High 06/17/2016 Sulfa Antibiotics Hives 08/05/2006 As a small child Hydrocodone-Acetaminophen Itching 01/01/2014 documented as of this encounter (statuses as of 04/03/2024) Medications FLINTSTONES COMPLETE PO CHEW daily Act [...] Active Topiramate 50 MG Oral Tablet (topAMAX)Indicati ons:CONVEYOR SYSTEM DISPATCHER demyelination (HCC) TAKE 1 TABLET BY MOUTH [...] Rizatriptan Benzoate 10 MG Oral Tablet (Maxalt)Indicatio ns:CONVEYOR SYSTEM DISPATCHER demyelination (HCC) one at onset. May repeat [...] mL 4 8:47 AM EST 03/03/20 24 Active Amoxicillin-Pot Clavulanate 875-125 MG Oral Tablet (Augmentin)Indica tions:Right otitis media, unspecified otitis media type,Rhinosinusit is Take 1 Tablet by mouth in the morning and 1 Tablet before bedtime. Do all this for 10 days. 20 Tablet 03/07/20 24 024 Hospital, Clinic, or Other Facility Administered Medication Ordered Dose Route Frequency Start Date End Date Status medroxyPROGESTERone acetate (Depo-Provera) inj BRYANNA 150 mgIndications:Depo-Provera contraceptive status 150 mg IM [id number] 02/08/2023 07/27/2025 Acti ve documented as of this encounter (statuses as of 04/03/2024) Active Problems Problem Noted Date Diagnosed Date [...] Overview (02/04/2017): ICD-10 update of inactive term ROKC RESEARCH OTHER*[id number] 11/17/2007 documented as of this encounter (statuses as of 04/03/2024) Resolved Problems Problem Noted Date Diagnosed Date [...] 08/01/2009 01/01/2014 Overview (08/01/2009): Per Obesity Taxonomy CONVEYOR SYSTEM DISPATCHER demyelination 07/11/2009 09/17/2018 ADVANCE DIRECTIVE INFORMATION 07/03/2009 [...] as of this encounter (statuses as of 04/03/2024) Immunizations Name Administration Dates Next Due COVID-19 mRNA, LNP-s, No Pre serve, 2-Dose Series (Moderna) 10/10/2020,09/12/2020 DT - Diptheria/Tetanus (PEDS) 10/04/2001 DTP Vaccine 01/19/1991, 0,1989,07/19 DTaP Dipth/Tet/Acell Pertussis (Infanrix), Peds 02/19/1995 H1N1 2009 Influenza, IM 04/25/2009 Haemophilius B (HIB), unspecified 08/22/1990 Hepatitis B, 0-19 yrs 11/18/2001,09/09/2001,030 09/2001 MMR - Measles/Mumps/Rubella Vaccine 02/19/1994,0 08/22/1990 OPV [...] No 05/20/2023 Does the household have a [facility] hospitall[facility] source of income? (Household - for ages [...] of Assessment Author No 01/22/2024 10:09 PM EDT Nida Culp RN * Do you have serious difficulty [...] encounter Miscellaneous Notes * Telephone Encounter - Yessi Carver RN - 04/03/2024 2:55 PM EST Patients referral updated 03/24, now authorized. * Telephone Encounter - Yusuf Bae RN - 03/09/2024 10:58 AM EST Pt scheduled for upcoming Ocrevus infusion on 04/17. [employer] insurance termed (see PFC note). Per note: " (PT AWARE [employer] TERMED AND IS IN CONTACT WITH SPANGLER AND STRINGED INSTRUMENT ASSEMBLER TOLD HER SHE WOULD NOT GET TO HER PAPERWORK UNTIL AFTER THE HOLIDAY). " documented in this encounter Plan of Treatment Upcoming Encounters Date Type Department Care Team (Latest Contact Info) Description 4 1:00 PM EST Office Visit Neurology Lore [address] [place] [address] Frida Ramírez PA-C [address] [facility] [place] [address] 4 1:15 PM EST Hem/Onc Treatment Hematology/Onc ology Treatment, [place] [address] [place] [address] Catina, Chair 4 Hem Onc [address] [place] [address] 4 11:40 AM EST Office Visit General Internal Medicine [facility] Catina [place] [address] [place] [address] Kimberly Figueroa MD [address] [place] [address] 4 8:00 AM EST Hospital Encounter OR [facility], Operating Room, [facility] - 4th Floor [address] [place] [phone] Anita Ha MD [address] [place] [address] 4 8:00 AM EST - 4 8:32 AM EST Surgery OR [facility], Operating Room, [facility] - 4th Floor [address] [place] [phone] Anita Ha MD [address] [place] [address] ESOPHAGOGASTRODUODENOSCOPY (EGD), FLEXIBLE, TRANSORAL, DIAGNOSTIC 4 10:00 AM EST Telemedicine Dermatology, Katarina Santos [address] [facility] [place] [address] Wb, Pharmacist Dermatology E [facility] [address] [facility] [place] [address] 4 10:00 AM EST Hem/Onc Treatment Hematology/Onc ology Treatment, [place] [address] [place] [phone] Catina, Chair 3 Hem Onc [facility] [address] [place] [address] 5 2:30 PM EDT Office Visit Hematology/Onc ology [facility] Catina [place] [address] [place] [phone] Tori Braxton CRNP 400 [place] [address] 5 7:00 AM EDT Pharmacy Neurology Lore [address] [place], [place] [address] Lore, Pharmacist Neurology 100 [facility] [place] [address] Scheduled Procedures Name Priority Associated Diagnoses [...] this encounter Medical Devices Implanted Type Area Automotive Parts Counter Associate Device Identifier Shelf Expiration Date Model / Serial / Lot Port Pwr Mri Isp Profile - [id number] Implanted:Qty : 1 on 08/09/2015 by Terrance Curry MD [place] [facility] Left: Chest CR BARD : PERIPHERAL VASCULAR 05/02/2017 [id number] / / [id number] Description:27 length of cat heter Set Sys [facility] 11-6t 165cm - [id number] Implanted:Qty : 1 on 02/13/2024 by Anita Ha MD at OR [facility] [id number] 01/03/2025 100. 10 / / [id number] documented as of this encounter Advance Directives [...] Care Agent (per Health Care Power of Casing Tier document) Care Teams Billing Clinician Relationship Specialty Start Date End Date Kimberly Figueroa MD [address] [place] [address] PCP - General Internal Medicine 02/21/21 documented as of this encounter
--- OUTSIDE RECORDS SUMMARY | 2024-04-13 04:53 | External Medical Summary | Summary of Care ---
Author Name Unknown Organization [facility] Address [address] [facility] [place] [address] Phone [phone] Care Team Providers Care Theology Teacher Name Role Phone Kimberly Figueroa MD Primary Care Provider + Reason for Visit * Reason Comments Procedure Port flush/labs from port Medication Administration B 12 injection Encounter Details Date Type Department Care Team (Late st Contact Info) Description 03/13/2024 12:15 PM EST Nurse Only Hematology/Oncology Treatment, [address] [address] [place], Chair 3 Hem Onc [address] [address] Procedure (Port flush/labs from port); Med... Allergies Active Allergy Reactions Criticality Noted Date Comments Cephalexin Hives 01/24/2010 As a small child Clindamycin Hives 12/30/2014 " And bad heartburn" As an adult about age 24 Methocarbamol Rash High 06/17/2016 Sulfa Antibiotics Hives 08/05/2006 As a small child Hydrocodone-Acetaminophen Itching 01/01/2014 documented as of this encounter (statuses as of 03/13/2024) Medications FLINTSTONES COMPLETE PO CHEW daily Act [...] Active Topiramate 50 MG Oral Tablet (topAMAX)Indicati ons:GRIEVANCE COORDINATOR demyelination (HCC) TAKE 1 TABLET BY [...] Rizatriptan Benzoate 10 MG Oral Tablet (Maxalt)Indicatio ns:GRIEVANCE COORDINATOR demyelination (HCC) one at onset. May [...] 150 mgIndications:Depo-Provera contraceptive status 150 mg IM [id number] 02/08/2023 07/27/2025 Acti ve documented as of this encounter (statuses as of 03/13/2024) Active Problems Problem Noted Date Diagnosed Date Hematemesis with nausea 01/22/2024 Other atopic dermatitis 10/17/2023 Chronic embolism and [...] ICD-10 update of inactive term [facility] [employer]ARCH OTHER*[id number] 11/17/2007 documented as of this encounter (statuses as of 03/13/2024) Resolved Problems Problem Noted Date Diagnosed Date Resolved Date Upper GI bleed 01/22/2024 01/24/2024 Gastrointestinal hemorrhage with melena 01/22/2024 01/24/2024 Gastrostomy status 02/19/2023 Dehydration 01/19/2022 11/21/2022 Diabetes mellitus without complication [...] 08/01/2009 01/01/2014 Overview (08/01/2009): Per Obesity Taxonomy GRIEVANCE COORDINATOR demyelination 07/11/2009 09/17/2018 ADVANCE DIRECTIVE INFORMATION [...] as of this encounter (statuses as of 03/13/2024) Immunizations Name Administration Dates Next Due COVID-19 [...] No 05/20/2023 Does the household have a [facility] source of income? (Household - for ages [...] of Assessment Author No 01/22/2024 10:09 PM RUBIOT Nida Culp RN * Do you have [...] Author Yes 01/22/2024 10:09 PM EDT Nida Culp, RN documented as of this encounter Mental Status * Because of a physical, mental, or emotional condition, do you have serious difficulty concentrating, remembering, or making decisions? (5 years old or older) Answer Entry Date Author No 01/22/2024 10:09 PM EDT Nida Culp RN documented in this encounter Nursing Notes * Fanta Pagan, RUSSELL - 03/13/2024 12:42 PM EST Patient here for port flush/lab draw and b12 injection. VAD accessed without difficulty, + blood return noted. Waste tube drawn and labs drawn. flushed with 10 ml NSS and Heparin 5 ml (100 units/ml). Whaley needle removed intact. Dry dressing applied. B12 injection given without difficulty, patient tolerated well. Patient left facility in stable condition. documented in this encounter Plan of Treatment Upcoming Encounters Date Type Department Care Team (Latest Contact Info) Description 4 1:00 PM EST Office Visit Orthopaedics [facility] [address] [facility] [place] [address] Richard Sexton DO [address] [facility] [address] 4 1:00 PM EST Office Visit Neurology [address] [place] [phone] Frida Ramírez PA-C [address] [facility] [place] [address] 4 3:20 PM EST Office Visit General Internal Medicine [facility] [address] [place] [address] Kimberly Figueroa MD [address] [place] [address] 4 8:00 AM EST Hospital Encounter OR GL, Operating Room, [facility] - 4th Floor [address] [place] [phone] Anita Ha MD [address] [place] [address] 4 8:00 AM EST - 4 8:32 AM EST Surgery OR [facility], Operating Room, [facility] - 4th Floor [address] [place] [phone] Anita Ha MD [address] [place] [address] ESOPHAGOGASTRODUODENOSCOPY (EGD), FLEXIBLE, TRANSORAL, DIAGNOSTIC 4 10:00 AM EST Telemedicine Dermatology, Katarina Santos [address] [facility] [place] [address] W[place], Pharmacist [facility] [address] [facility] [place] [address] 4 10:00 AM EST Hem/Onc Treatment Hematology/Onc ology Treatment, [place] [address] [place] [address] Cat[place], Chair 3 Hem Onc Scenery [address] [facility] [place] [address] 5 2:30 PM EDT Office Visit Hematology/Onc ology [facility] [place] [address] [place] [address] Tori Braxton CRNP [address] [place] [address] 5 7:00 AM EDT Pharmacy Neurology [address] [place] [phone] [place], Pharmacist Neurology [address] [facility] [place] [address] Pending Results Name Type Priority Associated Diagnoses Date /Time IRON SCREEN, INCLUDING TIBC Lab STAT Iron deficiency anemia, unspecified iron deficiency anemia type B12 deficiency Folic acid deficiency H/O gastric bypass Gastrointestinal hemorrhage with melena 03/13/2024 12:19 PM EST FERRITIN Lab STAT Iron deficiency anemia, unspecified iron deficiency anemia type B12 deficiency Folic acid deficiency H/O gastric bypass Gastrointestinal hemorrhage with melena 03/13/2024 12:19 PM EST VITAMIN B12 Lab STAT Iron deficiency anemia, unspecified iron deficiency anemia type B12 deficiency Folic acid deficiency H/O gastric bypass Gastrointestinal hemorrhage with melena 03/13/2024 12:19 PM EST FOLIC ACID Lab STAT Iron deficiency anemia, unspecified iron deficiency anemia type B12 deficiency Folic acid deficiency H/O gastric bypass Gastrointestinal hemorrhage with melena 03/13/2024 12:19 PM EST Scheduled Procedures Name Priority Associated Diagnoses Date/Ti [...] this encounter Medical Devices Implanted Type Area Media Account Executive Device Identifier Shelf Expiration Date Model / Serial / Lot Port Pwr Mri Isp Profile - [id number] Implanted:Qty : 1 on 08/09/2015 by Terrance Curry MD at [place] [facility] Left: Chest CR BARD : PERIPHERAL VASCULAR 05/02/2017 [id number] / / [id number] Description:27 length of cat heter Set Sys [facility] 11-6t 165cm - [id number] Implanted:Qty : 1 on 02/13/2024 by Anita Ha MD at OR [facility] [id number] 01/03/2025 100. 10 / / [id number] documented as of this encounter Procedures Procedure Name Priority Date/Time Associated Diagnosis Comments DIFFERENTIAL, AUTOMATED STAT 03/13/2024 12:19 PM EST Iron deficiency anemia, unspecified iron deficiency anemia type B12 deficiency Folic acid deficiency H/O gastric bypass Gastrointestinal hemorrhage with melena COMPREHENSIVE METABOLIC PANEL STAT 03/13/2024 12:19 PM EST Iron deficiency anemia, unspecified iron deficiency anemia type B12 deficiency Folic acid deficiency H/O gastric bypass Gastrointestinal hemorrhage with melena CBC STAT 03/13/2024 12:19 PM EST Iron deficiency anemia, unspecified iron deficiency anemia type B12 deficiency Folic acid deficiency H/O gastric bypass Gastrointestinal hemorrhage with melena CBC STAT 03/13/2024 12:19 PM EST Iron deficiency anemia, unspecified iron deficiency anemia type B12 deficiency Folic acid deficiency H/O gastric bypass Gastrointestinal hemorrhage with melena documented in this encounter Results * (ABNORMAL) DIFFERENTIAL, AUTOMATED (03/13/2024 12:19 PM EST) WBC 3.87(L) 4.00 - 10.80 K/uL 03/13/2024 12:44 PM EST LAB[facility] [place] 56-02 Neutrophils % 60.9 40.0 - 75.0 % 03/13/2024 12:44 PM EST [facility] 56- Lymphocytes % 19.1 18.0 - 42.0 % 03/13/2024 12:44 PM EST [facility] 56- Monocytes % 18.1(H) 1.0 - 11.0 % 03/13/2024 12:44 PM EST [facility] 56- Eosinophils % 1.6 0.0 - 6.0 % 03/13/2024 12:44 PM EST [facility] 56- Basophils % 0.3 0.0 - 2.0 % 03/13/2024 12:44 PM EST [facility] 56- Absolute Neutrophils 2.36 1.80 - 7.70 K/uL 03/13/2024 12:44 PM EST [facility] 56- Absolute Lymphocytes 0.74(L) 1.00 - 4.80 K/ul 03/13/2024 12:44 PM EST [facility] 56 Absolute Monocytes 0.70 0.00 - 1.10 K/uL 03/13/2024 12:44 PM [facility] 56 Absolute Eosinophils 0.06 0.00 - 0.70 K/uL 03/13/2024 12:44 PM [facility] 56 Absolute Basophils 0.01 0.00 - 0.20 K/uL 03/13/2024 12:44 PM [facility] 56-02 Blood Venous blood specimen / Unknown Central Line / Unknown 03/13/2024 12:19 PM EST 03/13/2024 12:39 PM EST Tori MOELLER LAB BLOOD ORDERABLES Fi nal Result [facility] 56-[address] [place] [address] * (ABNORMAL) CBC (03/13/2024 12:19 PM EST) [facility] WBC 3.87(L) 4.00 - 10.80 K/uL 03/13/2024 12:44 PM EST [facility] 56- RBC 2.94 3.85 - 5.15 M/uL 03/13/2024 12:44 PM EST [facility] 56-02 HGB 8.0(L) 12.0 - 15.3 g/dL 03/13/2024 12:44 PM EST [address] HCT 26.1(L) 36.0 - 45.2 % 03/13/2024 12:44 PM EST [address] MCV 88.8 81.5 - 97.5 fL 03/13/2024 12:44 PM EST [address] MCH 27.2 27.0 - 34.0 pg 03/13/2024 12:44 PM EST [address] MCHC 30.7 32.0 - 36.0 g/dL 03/13/2024 12:44 PM EST [address] RDW 17.4 11.5 - 15.5 % 03/13/2024 12:44 PM EST [address] PLT 253 140 - 400 K/uL 03/13/2024 12:[address] MPV 9.1 6.6 - 11.1 fL 03/13/2024 12:[address] Blood Venous blood specimen / Unknown Central Line / Unknown 03/13/2024 12:19 PM EST 03/13/2024 12:39 PM EST Tori MOELLER LAB BLOOD ORDERABLES nal Result [address] [place] [address] * (ABNORMAL) COMPREHENSIVE METABOLIC PANEL (03/13/2024 12:19 PM EST) BUN 3(L) 6 - 20 mg/dL 03/13/2024 1:[address] CREATININE 0.5 0.5 - 1.0 mg/dL 03/13/2024 1:[address] EGFR >90 >=60 mL/min 03/13/2024 1:[address] Comment:eGFR is calculated b ased on the CKD-EPI 2020 equation. SODIUM 133(L) 135 - 146 mmol/L 03/13/2024 1:[address] POTASSIUM 4.1 3.5 - 5.1 mmol/L 03/13/2024 1:01 PM [facility] 56 CHLORIDE 101 98 - 107 mmol/L 03/13/2024 1:01 PM [facility] 56 CO2 19(L) 22 - 32 mmol/L 03/13/2024 1:01 PM [facility] 56 ANION GAP 13 7 - 15 mmol/L 03/13/2024 1:[address] GLUCOSE 93 70 - 120 mg/dL 03/13/2024 1:[address] Albumin 3.6(L) 3.8 - 5.0 g/dL 03/13/2024 1:[address] AST 90(H) 10 - 35 U/L 03/13/2024 1:[address] Alkaline Phosphatase 247(H) 35 - 130 U/L 03/13/2024 1:[address] Bilirubin, Total 0.8 <=1.2 mg/dL 03/13/2024 1:[address] CALCIUM 8.6 8.4 - 10.2 mg/dL 03/13/2024 1:01 PM [facility] 56 Protein 5.9(L) 6.0 - 8.3 g/dL 03/13/2024 1:01 PM [facility] 56 ALT 28 10 - 35 U/L 03/13/2024 1:01 PM [facility] Blood Venous blood specimen / Unknown Central Line / Unknown 03/13/2024 12:19 PM EST 03/13/2024 12:39 PM EST us Tori MOELLER LAB BLOOD ORDERABLES Fi nal Result [facility] 56- [address] [place] [address] documented in this encounter Visit Diagnoses Diagnosis B12 deficiency- Primary Other B-complex deficiencies Iron deficiency anemia, unspecified iron deficiency anemia type Folic acid deficiency Other B-complex deficiencies H/O gastric bypass Bariatric surgery status Gastrointestinal hemorrhage with melena Enteroenteric fistula Fistula of intestine, excluding rectum and anus documented in this encounter Administered Medications Active Administered Medications - up to 3 most recent administrations Medication Order MAR Action Action Date Dose Rate Site hEParin 100 UNIT/ML Lock Flush inj 500 Units 500 Units (5 mL), IV Lock, PRN Other, IV Flush, Starting on Sat03/13/24 at 1230, Until 03/14/24 at 1229, For 24 hours, Do not flush if lock, PICC, or central line not in place; IV infusing or unable to flush.Indications:Iron deficiency anemia, unspecified iron deficiency anemia type,B12 deficiency Given 03/13/2024 12:30 PM EST 500 Units sodium chloride 0.9 % flush central line 10 mL 10 mL, IV Push, PRN Other, IV Flush, Starting on Sat03/13/24 at 1230, Until 03/14/24 at 1229, For 24 hours, Do not flush if lock, PICC, or central line not in place; IV infusing or unable to flush.Indications:Iron deficiency anemia, unspecified iron deficiency anemia type,B12 deficiency Given 03/13/2024 12:30 PM EST 10 mL Inactive Administered Medications - up to 3 most recent administrations Medication Order MAR Action Action Date Dose Rate Site Vitamin B-12 (Cyanocobalamin) inj 1,000 mcg 1,000 mcg, Intramuscular, ONCE, On Sat03/13/24 at 1315, For 1 doseIndications:Iron deficiency anemia, unspecified iron deficiency anemia type,B12 deficiency Given 03/13/2024 12:36 PM EST 1,000 mcg Deltoid Left Upper documented in this encounter Advance Directives * [...] Care Agent (per Health Care Power of Railroad Signal Operator document) Care Teams Theology Teacher Relationship Specialty Start Date End Date Kimberly Figueroa MD [address] [facility] [place] [address] PCP - General Internal Medicine 02/21/21 documented as of this encounter
--- OUTSIDE RECORDS SUMMARY | 2024-04-13 04:53 | External Medical Summary ---
Author Name Unknown Address Unknown Organization K01:[facility] [place] [address] [place] [address] Laboratory Report Ordering Provider Test Date Status ANSELMONICK 03/13/2024 12:19:30 Final Observation Date Value Abnormality Reference (Units ) Status Folic Acid 03/13/2024 12:19:30 5.6 >4.5 (ng/ mL) Final Performing Location LABORATORY C - [address] [place] [address]
--- OUTSIDE RECORDS SUMMARY | 2024-04-13 04:53 | External Medical Summary ---
Author Name Unknown Address Unknown Organization [id number]:[facility]ORY [facility] [place] [address] [place] [address] Laboratory Report Ordering Provider Test Date Status NICK BRIONES 03/13/2024 12:19:30 Final Observation Date Value Abnormality Reference (Units ) Status Iron 03/13/2024 12:19:30 28 Below low normal 33-151 (ug/dL) Final Iron-binding capacity 03/13/2024 12:19:30 378 250-425 (ug/dL) Final Transferrin Sat % 03/13/2024 12:19:30 7 Below low normal 15-55 (%) Final Performing Location LABORATORY C - [address] [place] [address]
--- OUTSIDE RECORDS SUMMARY | 2024-04-13 04:53 | External Medical Summary ---
Author Name Unknown Address Unknown Organization K01:LABORATORY C - [address] [place] [address] Laboratory Report Ordering Provider Test Date Status NICK BRIONES 03/13/2024 12:19:30 Final Observation Date Value Abnormality Reference (Units ) Status Ferritin 03/13/2024 12:19:30 18 13-150 (ng /mL) Final Performing Location [facility] - [address] [place] [address]
--- OUTSIDE RECORDS SUMMARY | 2024-04-13 04:53 | External Medical Summary ---
Author Name Unknown Address Unknown Organization K09:[facility]ORY [place] [address] Laboratory Report Ordering Provider Test Date Status NICK BRIONES 03/13/2024 12:19:30 Final Observation Date Value Abnormality Reference (Units ) Status SYNC LEUKOCYTES IN BLOOD BY AUTOMATED COUNT 03/13/2024 12:19:30 3.87 Below low normal 4.00-10.80 (K/uL) Final Segs 03/13/2024 12:19:30 60.9 40.0-75.0 (%) Final Lymphs % 03/13/2024 12:19:30 19.1 18.0-42.0 (%) Final Monos 03/13/2024 12:19:30 18.1 Above high normal 1.0-11.0 (%) Final Eosinophils 03/13/2024 12:19:30 1.6 0.0-6.0 (%) Final Basos 03/13/2024 12:19:30 0.3 0.0-2.0 (%) Final Absolute Segs 03/13/2024 12:19:30 2.36 1.80-7.70 (K/uL) Final Lymphs, absolute 03/13/2024 12:19:30 0.74 Below low normal 1.00-4.80 (K/ul) Final Monos, Abs 03/13/2024 12:19:30 0.70 0.00-1.10 (K/uL) Final Eos, Abs 03/13/2024 12:19:30 0.06 0.00-0.70 (K/uL) Final Basos, Abs 03/13/2024 12:19:30 0.01 0.00-0.20 (K/uL) Final Performing Location [facility]ORY [place] [address]
--- OUTSIDE RECORDS SUMMARY | 2024-04-13 04:53 | External Medical Summary ---
Author Name Unknown Address Unknown Organization K09:[facility] 56-02 - [address] [place] [address] Laboratory Report Ordering Provider Test Date Status NICK BRIONES 03/13/2024 12:19:30 Final Observation Date Value Abnormality Reference (Units ) Status BUN 03/13/2024 12:19:30 3 Below low normal 6-20 (mg/dL) Final Creatinine 03/13/2024 12:19:30 0.5 0.5-1.0 (mg/dL) Final Glomerular filtration rate/1.73 sq M.predicted [Volume Rate/Area] in Serum, Plasma or Blood by Creatinine-based formula (CKD-EPI) 03/13/2024 12:19:30 >90 >=60 (mL/min) Final eGFR is calculated based on the CKD-EPI 2020 equation. Sodium 03/13/2024 12:19:30 133 Below low normal 135 -146 (mmol/L) Final Potassium 03/13/2024 12:19:30 4.1 3.5-5.1 (m mol/L) Final Cl 03/13/2024 12:19:30 101 98-107 (mm ol/L) Final CO2 03/13/2024 12:19:30 19 Below low normal 22- 32 (mmol/L) Final Anion gap 03/13/2024 12:19:30 13 7-15 (mmol /L) Final Glucose 03/13/2024 12:19:30 93 70-120 (mg /dL) Final Albumin 03/13/2024 12:19:30 3.6 Below low normal 3.8 -5.0 (g/dL) Final AST (Aspartate aminotransferase) 03/13/2024 12:19:30 90 Above high normal 10-35 (U/L) Final Alk Phos 03/13/2024 12:19:30 247 Above high normal 35 -130 (U/L) Final Bilirubin, Total 03/13/2024 12:19:30 0.8 <=1 .2 (mg/dL) Final Calcium 03/13/2024 12:19:30 8.6 8.4-10.2 ( mg/dL) Final Protein 03/13/2024 12:19:30 5.9 Below low normal 6.0 -8.3 (g/dL) Final ALT (Alanine aminotransferase) 03/13/2024 12:19:30 28 10-35 (U/L) Mike penn Performing Location [facility] [place] [address] [place] [address]
--- OUTSIDE RECORDS SUMMARY | 2024-04-13 04:53 | External Medical Summary | Summary of Care ---
Author Name Unknown Organization [facility] Address [address] [place] [address] Phone [phone] Care Team Providers Care Lasting Room Supervisor Name Role Phone Kimberly Figueroa MD Primary Care Provider + Reason for Visit * Reason Onset Date Comments Precert Future 03/09/2024 Ocrevus Encounter Details Date Type Department Care Team (Late st Contact Info) Description 03/09/2024 Telephone Hematology/Oncology [facility] [address] [place] [facility] [place] [address] [facility] [address] [place] [address] Precert Future (Ocrevus) Allergies Active Allergy Reactions Criticality Noted Date Comments Cephalexin Hives 01/24/2010 As a small child Clindamycin Hives 12/30/2014 " And bad heartburn" As an adult about age 24 Methocarbamol Rash High 06/17/2016 Sulfa Antibiotics Hives 08/05/2006 As a small child Hydrocodone-Acetaminophen Itching 01/01/2014 documented as of this encounter (statuses as of 03/11/2024) Medications Medication Sig Dispensed Refills Start Date End Date Status FLINTSTONES COMPLETE PO CHEW daily Active Cholecalciferol (VITAMIN D3) 5000 UNITS Tablet Take 1 Cap by mouth daily. Take with additonal 1000 units for total of 6000 units daily 30 Cap 11 09/28/2015 Active Cranberry 500 MG Capsule Take 1 Capsule by mouth in the morning. 08/06/2017 Active vitamin b-12 (CYANOCOBALAMIN) 1000 MCG/ML injection Inject 1,000 mcg into a large muscle every 30 days. 12/11/2017 Active Ocrelizumab 300 MG/10ML Intravenous Solution Administer intravenously. Every 6 months 05/10/2018 Active Glucose Blood (ONETOUCH VERIO) STRPIndications:Hyp oglycemia Test blood sugar once daily as directed. Dx: E16.2 100 Strip 11 02/03/2019 Active ONETOUCH DELICA LANCETS 33G MISCIndications:Hyp oglycemia Test blood sugar once daily as directed. Dx: E16.2 90 Each 3 02/03/2019 Active Topiramate 50 MG Oral Tablet (topAMAX)Indication s:SPLINE ROLLING MACHINE JOB SETTER demyelination (HCC) TAKE 1 TABLET BY MOUTH TWICE A DAY 180 Tab 1 11/14/2020 Active Albuterol Sulfate (2.5 MG/3ML) 0.083% Inhalation Nebulization Solution (Proventil)Indicati ons:Moderate persistent asthma with acute exacerbation USE ONE VIAL IN NEBULIZER EVERY 4 HOURS NEEDED FOR WHEEZING DX: J45.30 60 mL 2 12/04/2021 Active Venlafaxine HCl 50 MG Oral Tablet (Effexor)Indication s:AUDELIA (generalized anxiety disorder),Current moderate episode of major depressive disorder without prior episode (HCC) Take 1 Tablet by mouth in the morning and 1 Tablet before bedtime. With food.. 90 Tablet 5 08/14/2022 Active Promethazine HCl 25 MG Oral Tablet (Phenergan)Indicati ons:Nausea Take 1 Tablet by mouth every 6 hours as needed for Nausea. or vomiting 20 Tablet 1 02/19/2023 Active Rizatriptan Benzoate 10 MG Oral Tablet (Maxalt)Indications :SPLINE ROLLING MACHINE JOB SETTER demyelination (HCC) one at onset. May repeat two hour if neeed 9 Tablet 5 02/19/2023 Active Triamcinolone Acetonide 0.1 % External Cream (Aristocort) Apply topically to affected area 2 times a day. Apply to rash areas. 30 g 07/23/2023 Active Albuterol Sulfate HFA 108 (90 Base) MCG/ACT Inhalation Aerosol Solution INHALE 2 PUFFS BY MOUTH EVERY FOUR HOURS NEEDED FOR WHEEZING 18 g 2 10/21/2023 Active EPINEPHrine 0.3 MG/0.3ML Injection Solution Auto-injector (Autoinjector) For a severe reaction: Inject in outer thigh following instructions on package and go to the Emergency room. 2 Each 3 10/21/2023 Active Fexofenadine-Pseudo ephed ER 180-240 MG Tablet Extended Release 24 Hour (Gemma-D Allergy & Congestion) Take 1 Tablet by mouth in the morning. Active Folic Acid 1 MG Oral TabletIndications:H /O gastric bypass,Folic acid deficiency Take 2 Tablets by mouth in the morning. 180 Tablet 1 12/23/2023 Active hydrOXYzine Pamoate 25 MG Oral Capsule (Vistaril)Indicatio ns:AUDELIA (generalized anxiety disorder) Take 1 Capsule by mouth 3 times a day as needed for Anxiety (Sleep). 30 Capsule 5 01/14/2024 Active Sertraline HCl 100 MG Oral Tablet (Zoloft)Indications :Recurrent major depressive disorder, in partial remission (HCC) Take 1 Tablet by mouth in the morning. 90 Tablet 3 02/11/2024 Active Sucralfate 1 GM/10ML Oral Suspension (Carafate) Take 10 mL by mouth in the morning and 10 mL before bedtime. 1800 mL 02/18/2024 Active Dupixent 300 MG/2ML Subcutaneous Solution Auto-injector (Dupilumab) Maintenance Dose: Inject 300mg (1 pen) under the skin every two weeks. 4 mL 03/03/2024 Active Amoxicillin-Pot Clavulanate 875-125 MG Oral Tablet (Augmentin)Indicati ons:Right otitis media, unspecified otitis media type,Rhinosinusitis Take 1 Tablet by mouth in the morning and 1 Tablet before bedtime. Do all this for 10 days. 20 Tablet 03/07/2024 Active Hospital, Clinic, or Other Facility Administered Medication Ordered Dose Route Frequency Start Date End Date Status medroxyPROGESTERone acetate (Depo-Provera) inj BRYANNA 150 mgIndications:Depo-Provera contraceptive status 150 mg IM [id number] 02/08/2023 07/27/2025 Acti ve documented as of this encounter (statuses as of 03/11/2024) Active Problems Problem Noted Date Diagnosed Date [...] History of DVT (deep vein thrombosis) 2017 Overview: Due to port. 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 Mild persistent asthma without complication 12/06 Migraine 04/13/2011 Chronic sinusitis 04/25/2010 Postgastric surgery syndrome 07/11/2009 Overview: ICD-10 update of inactive term ROCK RESEARCH OTHER*[id number] 11/17/2007 documented as of this encounter (statuses as of 03/11/2024) Resolved Problems Problem Noted Date Diagnosed Date Resolved Date Upper GI bleed 01/22/2024 01/24/2024 Gastrointestinal hemorrhage with melena 01/22/2024 01/24/2024 Gastrostomy status 02/19/2023 3 Dehydration 01/19/2022 11/21/2022 Diabetes mellitus without complication 03/24/2019 03/24/2019 Fall 02/05/2018 06/12/2018 Hip pain, right 02/05/2018 06/12/2018 Allergic conjunctivitis, bilateral 10/31/2017 09/17/2018 Body mass index (BMI) of 40. 0 to 44.9 in adult 04/16/2017 12/19/2021 Overview: Per Obesity protocol #1 historical H/O gastric bypass 03/19/2017 9 Well adult exam 06/13/2016 09/17/2018 Overview: 04/22 EMG WNL 06/22 no hx paps--pt declines. Allergic conjunctivitis 05/08/201605/06 Acute bronchitis, complicated 11/22/2015 2016 Acute frontal sinusitis 08/03/201505/06 Acute maxillary sinusitis 08/03/2015 MS (multiple sclerosis) 04/18/2015 08/06/2017 DVT of upper extremity (deep vein thrombosis) [...] .9, isolated (see actual BMI) 08/01/2009 01/01/2014 Overview: Per Obesity Taxonomy SPLINE ROLLING MACHINE JOB SETTER demyelination 07/11/2009 09/17/2018 ADVANCE DIRECTIVE INFORMATION 07/03/2009 06/12/2018 Overview: No, Advance Directive brochure offered , patient declined. 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/2008 2016 Morbid obesity, BMI not known 05/02/2007 08/01/2009 Overview: Per Obesity Taxonomy Multiple sclerosis 6 documented as of this encounter (statuses as of 03/11/2024) Immunizations Name Administration Dates Next Due COVID-19 [...] ages 0-17 years) Not on file 05/20/2023 Sex and Gender Information Value Date Recorded Sex Assigned at Female 07/22/2018 1:07 PM EDT Gender Identity Female 07/22/2018 1:07 PM EDT Sexual Orientation Straight 07/22/2018 1: 07 PM EDT Job Start Date Occupation Industry Not on file Not on file Not on file documented as of this encounter Functional Status Functional Status Response Date of Assess ment Are you deaf or do you have serious difficulty hearing? No 01/22/2024 Are you blind or do you have serious difficulty seeing, even when wearing glasses? No 01/22/2024 Do you have serious difficul ty walking or climbing stairs? (5 years old or older) No 01/22/2024 Do you have difficulty dress ing or bathing? (5 years old or older) No 01/22/2024 Because of a physical, menta l, or emotional condition, do you have difficulty doing errands alone such as visiting a doctor s office or shopping? (15 years old or older) Yes-doesn't drive 01/22/20 24 Cognitive Status Response Date of Assessm ent Because of a physical, menta l, or emotional condition, do you have serious difficulty concentrating, remembering, or making decisions? (5 years old or older) No 01/22/2024 documented as of this encounter Miscellaneous Notes * Telephone Encounter - Yusuf Bae RN - 03/09/2024 10:58 AM EST Pt scheduled for upcoming Ocrevus infusion on 04/17. [employer] insurance termed (see PFC note). Per note: " (PT AWARE [employer] TERMED AND IS IN CONTACT WITH [employer] AND TOW MATE TOLD HER SHE WOULD NOT GET TO HER PAPERWORK UNTIL AFTER THE HOLIDAY). " documented in this encounter Plan of Treatment Upcoming Encounters Date Type Department Care Team (Latest Contact Info) Description 4 12:15 PM EST Nurse Only Hematology/Onc ology Treatment, [place] [address] [place] [phone] Catina, Chair 3 Hem Onc [facility] [address] [place] [address] 4 1:00 PM EST Office Visit Orthopaedics [facility] [address] [place] [address] Richard Sexton DO [address] [place] [address] 4 1:00 PM EST Office Visit Neurology [address] [place] [phone] Frida Ramírez PA-C [address] [place] [facility] [address] 4 3:20 PM EST Office Visit General Internal Medicine [facility] [address] [place] [address] Kimberly Figueroa MD [address] [place] [address] 4 8:00 AM EST Hospital Encounter OR [place], Operating Room, [facility] - 4th Floor [address] [place] [address] Anita Ha MD [address] [place] [address] 4 8:00 AM EST - 4 8:32 AM EST Surgery OR GL, Operating Room, [facility] - 4th Floor [address] [place] [address] Anita Ha MD [address] [place] [address] ESOPHAGOGASTRODUODENOSCOPY (EGD), FLEXIBLE, TRANSORAL, DIAGNOSTIC 4 10:00 AM EST Telemedicine Dermatology, Katarina Santos [address] [facility] [place] [address] Wb, Pharmacist Dermatology E [facility] [address] [facility] [place] [address] 4 10:00 AM EST Hem/Onc Treatment Hematology/Onc ology Treatment, [place] [address] [place] [address] Catina, Chair 3 Hem Onc [facility] [address] [place] [address] 5 2:30 PM EDT Office Visit Hematology/Onc ology [facility] [place] [address] [place] [address] Troi Braxton CRNP [address] [facility] [id number] 5 7:00 AM EDT Pharmacy Neurology [address] [place] [phone] Lore, Pharmacist Neurology 100 [facility] [place] [address] Scheduled Procedures Name Priority Associated Diagnoses Date/Ti [...] this encounter Medical Devices Implanted Type Area Controller Instructor Device Identifier Shelf Expiration Date Model / Serial / Lot Port Pwr Mri Isp Profile - [id number] Implanted:Qty : 1 on 08/09/2015 by Terrance Curry MD at [place] [facility] [place] Left: Chest CR BARD : PERIPHERAL VASCULAR 05/02/2017 [id number] / / [id number] Description:27 length of cat heter Set Sys Otsc 11-6t 165cm - [id number] Implanted:Qty : 1 on 02/13/2024 by Anita Ha MD at OR [facility] [employer] [id number] 01/03/2025 100. 10 / / [id number] documented as of this encounter Advance Directives [...] Care Agent (per Health Care Power of Stove Bottom Worker document) Care Teams Lasting Room Supervisor Relationship Specialty Start Date End Date Kimberly Figueroa MD 200 [place] [address] PCP - General Internal Medicine 02/21/21 documented as of this encounter
--- OUTSIDE RECORDS SUMMARY | 2024-04-13 04:53 | External Medical Summary | Summary of Care ---
Author Name Unknown Organization [facility] Address [address] [facility] [address] Phone [phone] Care Team Providers Care Swahili Teacher Name Role Phone Kimberly Figueroa MD Primary Care Provider + Reason for Visit * Reason Onset Date Comments Test Results Lab 03/15/2024 Medication Pre-auth 03/15/2024 Monoferric Encounter Details Date Type Department Care Team (Late st Contact Info) Description 03/15/2024 Telephone Hematology/Oncology [facility] [place] [address] [facility] [address] Tori Braxton CRNP [address] [place] [address] Test Results Lab; [...] Active Topiramate 50 MG Oral Tablet (topAMAX)Indicati ons:PURCHASING BUYER demyelination (HCC) TAKE 1 TABLET BY MOUTH [...] Rizatriptan Benzoate 10 MG Oral Tablet (Maxalt)Indicatio ns:PURCHASING BUYER demyelination (HCC) one at onset. May repeat [...] 150 mgIndications:Depo-Provera contraceptive status 150 mg IM [id number] 02/08/2023 07/27/2025 Acti ve documented as of [...] ICD-10 update of inactive term ROCK RESEARCH OTHER*[id number] 11/17/2007 documented as of this encounter (statuses [...] 08/01/2009 01/01/2014 Overview (08/01/2009): Per Obesity Taxonomy PURCHASING BUYER demyelination 07/11/2009 09/17/2018 ADVANCE DIRECTIVE INFORMATION 07/03/2009 [...] of Assessment Author No 01/22/2024 10:09 PM Ndia Ovalles RN * Do you have difficulty [...] encounter Miscellaneous Notes * Telephone Encounter - Vandana Viera LPN - 03/16/2024 1:57 PM EST Left message on patient's voicemail, return phone number provided. My G sent. * Telephone Encounter - Vandana Viera LPN - 03/16/2024 1:53 PM EST Order received Monoferric Philip plan built and routed to provider Awaiting [...] [place] [phone] Frida Ramírez PA-C [address] [facility] [place] [address] 4 3:20 PM EST Office Visit General Internal Medicine [facility] [place] [address] [facility] [place] [address] Kimberly Figueroa MD [address] [place] [address] 4 8:00 AM EST Hospital Encounter OR [facility], Operating Room, [facility] - 4th Floor [address] [place] [phone] Anita Ha MD [address] [place] [address] 4 8:00 AM EST - 4 8:32 AM EST Surgery OR [facility], Operating Room, [facility] - 4th Floor [address] [place] [address] Anita Ha MD [address] [place] [address] ESOPHAGOGASTRODUODENOSCOPY (EGD), FLEXIBLE, TRANSORAL, DIAGNOSTIC 4 10:00 AM EST Telemedicine Dermatology, Katarina Santos [address] [facility] [place] [address] , Pharmacist Dermatology E [facility] [address] [place] [address] 4 10:00 AM EST Hem/Onc Treatment Hematology/Onc ology Treatment, [place] [address] [place] [address] Caitna, Chair 3 Hem Onc [place] [place] [address] 5 2:30 PM EDT Office Visit Hematology/Onc ology [place] [address] [place] [address] Tori Braxton CRNP [address] [place] [address] 5 7:00 AM EDT Pharmacy Neurology [address] [place] [address] Lore, Pharmacist Neurology 100 [facility] [place] [address] Scheduled Procedures Name Priority Associated Diagnoses Date/Ti [...] this encounter Medical Devices Implanted Type Area Materials Coordinator Device Identifier Shelf Expiration Date Model / Serial / Lot Port Pwr Mri Isp Profile - [id number] Implanted:Qty : 1 on 08/09/2015 by Terrance Curry MD at OR [facility] Left: Chest CR BARD : PERIPHERAL VASCULAR 05/02/2017 [id number] / / [id number] Description:27 length of cat heter Set Sys [facility] 11-6t 165cm - [id number] Implanted:Qty : 1 on 02/13/2024 by Anita Ha MD at OR [facility] [employer] [id number] 01/03/2025 100. 10 / / [id number] documented as of this encounter Visit Diagnoses [...] 04/18/2015 4:14 PM 04/19/2015 7:03 PM This orde r reflects the patients wishes and were consensually [...] Agents on File Name Relationship Healthcare Agent [facility] Communication Lashanda Justus Mother First Alternate Health Care Agent (per Health Care Power of Gaming Worker document) Care Teams Swahili Teacher Relationship Specialty Start Date End Date Kimberly Figueroa MD [address] [place] [address] PCP - General Internal Medicine 02/21/21 documented as of this encounter
--- OUTSIDE RECORDS SUMMARY | 2024-04-13 04:53 | External Medical Summary | Summary of Care ---
Author Name Unknown Organization [facility] Address [address] [facility] [place] [address] Phone [phone] Care Team Providers Care Quality Assurance Technician Name Role Phone Kimberly Figueroa MD Primary Care Provider + Encounter Details Date Type Department Care Team (Late st Contact Info) Description 03/15/2024 Telephone Hematology/Oncology [facility] [address] [place] [address] Tori Braxton CRNP 400 [facility] [place] [address] Allergies Active Allergy Reactions Criticality Noted [...] Active Topiramate 50 MG Oral Tablet (topAMAX)Indicati ons:STRAPPER OPERATOR demyelination (HCC) TAKE 1 TABLET BY [...] Rizatriptan Benzoate 10 MG Oral Tablet (Maxalt)Indicatio ns:STRAPPER OPERATOR demyelination (HCC) one at onset. May [...] 150 mgIndications:Depo-Provera contraceptive status 150 mg IM [id number] 02/08/2023 07/27/2025 Acti ve documented as of [...] ICD-10 update of inactive term ROCK RESEARCH OTHER*[id number] 11/17/2007 documented as of this encounter (statuses [...] 08/01/2009 01/01/2014 Overview (08/01/2009): Per Obesity Taxonomy STRAPPER OPERATOR demyelination 07/11/2009 09/17/2018 ADVANCE DIRECTIVE INFORMATION [...] encounter Miscellaneous Notes * Telephone Encounter - Tori Braxton CRNP [...] Dr [phone] Frida Ramírez PA-C [address] [facility] [place] [address] 4 3:20 PM EST Office Visit General Internal Medicine [facility] [place] [address] [place] [address] Kimberly Figueroa MD [address] [place] [address] 4 8:00 AM EST Hospital Encounter OR [facility], Operating Room, [facility] - 4th Floor [address] [place] [phone] Anita Ha MD [address] [place] [address] 4 8:00 AM EST - 4 8:32 AM EST Surgery OR [facility], Operating Room, [facility] - 4th Floor [address] [place] [phone] Anita Ha MD [address] [place] [address] ESOPHAGOGASTRODUODENOSCOPY (EGD), FLEXIBLE, TRANSORAL, DIAGNOSTIC 4 10:00 AM EST Telemedicine Dermatology, Katarina Santos [address] [facility] [place] [address] W[place], Pharmacist Dermatology [facility] [address] [facility] [place] [address] 4 10:00 AM EST Hem/Onc Treatment Hematology/Onc ology Treatment, [place] 200 [facility] [place] [address] Catina, Chair 3 Hem Onc [address] [place] [address] 5 2:30 PM EDT Office Visit Hematology/Onc ology [facility] [place] 200 [facility] [place] [address] Tori Braxton CRNP [address] [place] [address] 5 7:00 AM EDT Pharmacy Neurology [address] [place] [address] Lore, Pharmacist Neurology [address] [place] [address] Scheduled Procedures Name Priority [...] this encounter Medical Devices Implanted Type Area Reclaimer Device Identifier Shelf Expiration Date Model / Serial / Lot Port Pwr Mri Isp Profile - [id number] Implanted:Qty : 1 on 08/09/2015 by Terrance Curry MD at [place] [facility] [place] [facility] [place] Left: Chest CR BARD : PERIPHERAL VASCULAR 05/02/2017 [id number] / / [id number] Description:27 length of cat heter Set Sys Ots 11-6t 165cm - [id number] Implanted:Qty : 1 on 02/13/2024 by Anita Ha MD at OR [facility] [facility] [id number] 01/03/2025 100. 10 / / [id number] documented as of this encounter Visit Diagnoses [...] Care Agent (per Health Care Power of Geophysical Observer document) Care Teams Quality Assurance Technician Relationship Specialty Start Date End Date Kimberly Figueroa MD [address] [place] [address], [place] [address] PCP - General Internal Medicine 02/21/21 documented as of this encounter
--- OUTSIDE RECORDS SUMMARY | 2024-04-13 04:53 | External Medical Summary | Summary of Care ---
Author Name Unknown Organization [facility] Address [address] [place] [address] Phone [phone] Care Team Providers Care Rn Staff Name Role Phone Kimberly Figueroa MD Primary Care Provider + Encounter Details Date Type Department Care Team (Late st Contact Info) Description 03/10/2024 Telephone Hematology/Oncology [facility] [place] [address] [place] [phone] Services, Scheduling [address] [place] [address] Allergies Active Allergy Reactions Criticality Noted Date Comments Cephalexin Hives 01/24/2010 As a small child Clindamycin Hives 12/30/2014 " And bad heartburn" As an adult about age 24 Methocarbamol Rash High 06/17/2016 Sulfa Antibiotics Hives 08/05/2006 As a small child Hydrocodone-Acetaminophen Itching 01/01/2014 documented as of this encounter (statuses as of 03/10/2024) Medications Medication Sig Dispensed Refills Start Date [...] Active Topiramate 50 MG Oral Tablet (topAMAX)Indication s:MARINE OPERATIONS 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 May [...] 150 mgIndications:Depo-Provera contraceptive status 150 mg IM [id number] 02/08/2023 07/27/2025 Acti ve documented as of this encounter (statuses as of 03/10/2024) Active Problems Problem Noted Date Diagnosed Date [...] ICD-10 update of inactive term ROCK RESEARCH OTHER*[id number] 11/17/2007 documented as of this encounter (statuses as of 03/10/2024) Resolved Problems Problem Noted Date Diagnosed Date [...] BMI) 08/01/2009 01/01/2014 Overview: Per Obesity Taxonomy MARINE OPERATIONS COORDINATOR demyelination 07/11/2009 09/17/2018 ADVANCE DIRECTIVE INFORMATION [...] as of this encounter (statuses as of 03/10/2024) Immunizations Name Administration Dates Next Due COVID-19 mRNA, LNP-s, No Pre serve, 2-Dose Series (Moderna) 10/10/2020,09/12/2020 DT - Diptheria/Tetanus (PEDS) 10/04/2001 DTP Vaccine 01/19/1991, 0,1989,07/19 DTaP Dipth/Tet/Acell Pertussis (Infanrix), Peds 02/19/1995 H1N1 2009 Influenza, IM 04/25/2009 Haemophilius B (HIB), unspecified 08/22/1990 Hepatitis B, 0-19 yrs 11/18/2001,09/09/2001,03/0 09/2001 MMR - Measles/Mumps/Rubella Vaccine 02/19/1994,0 08/22/1990 [...] Telephone Encounter - Yessi Carver RN - 03/10/2024 10:58 AM EST [place] updated. * Telephone Encounter - Arleth Silverman OSA - 03/10/2024 10:46 AM EST I just wanted to notify that I rescheduled the portflush from 02/27 to 03/13. Mom stated this was for the b12 shot as well. documented in this encounter Plan of Treatment Upcoming Encounters Date Type Department Care Team (Latest Contact Info) Description 4 12:15 PM EST Nurse Only Hematology/Onc ology Treatment, [place] [address] [place] [address] Catina, Chair 3 Hem Onc [address] [place] [address] 4 1:00 PM EST Office Visit Orthopaedics [facility] [address] [place] [address] Richard Sexton DO [address] [place] [address] 4 3:20 PM EST Office Visit General Internal Medicine [facility] [address] [place] [address] Kimberly Figueroa MD [address] [facility] [place] [address] 4 8:00 AM EST Hospital Encounter OR [place], Operating Room, [facility] - 4th Floor [address] [place] [phone] Anita Ha MD [address] [place] [address] 4 8:00 AM EST - 4 8:32 AM EST Surgery OR GL, Operating Room, [facility] - 4th Floor [address] [place] [phone] Anita Ha MD [address] [place] [address] ESOPHAGOGASTRODUODENOSCOPY (EGD), FLEXIBLE, TRANSORAL, DIAGNOSTIC 4 10:00 AM EST Telemedicine Dermatology, Katarina Cosme [facility] [place] [address] Wb, Pharmacist Dermatology E [facility] [address] [facility] [place] [address] 4 10:00 AM EST Hem/Onc Treatment Hematology/Onc ology Treatment, [place] [address] [place], [place] [address] Catina, Chair 3 Hem Onc [address] [place], [place] [address] 5 2:30 PM EDT Office Visit Hematology/Onc ology [facility] [place] [address] [place], [place] [address] Tori Braxton, SAJAN [address] [place] [address] 5 7:00 AM EDT Pharmacy Neurology [address] [place] [address] Lisa, Pharmacist Neurology 100 [facility] [place], [place] [id number] Scheduled Procedures Name Priority Associated Diagnoses Date/Ti [...] this encounter Medical Devices Implanted Type Area Salesperson Hearing Aids Device Identifier Shelf Expiration Date Model / Serial / Lot Port Pwr Mri Isp Profile - [id number] Implanted:Qty : 1 on 08/09/2015 [place] [facility] [place] Chest CR BARD : PERIPHERAL VASCULAR 05/02/2017 [id number] / / [id number] Description:27 length of cat heter Set Sys Otsc 11-6t 165cm - [id number] Implanted:Qty : 1 on 02/13/2024 by Anita Ha MD at OR [facility] [id number] 01/03/2025 100. 10 / / [id number] documented as of this encounter Advance Directives [...] Care Agent (per Health Care Power of Highway Inspector document) Care Teams Rn Staff Relationship Specialty Start Date End Date Kimberly Figueroa MD 200 [place] [address] PCP - General Internal Medicine 02/21/21 documented as of this encounter
--- OUTSIDE RECORDS SUMMARY | 2024-04-13 04:53 | External Medical Summary | Summary of Care ---
Author Name Unknown Organization [facility] Address [address] [facility] [place] [address] Phone [phone] Care Team Providers Care Safe Expert Name Role Phone Kimberly Figueroa MD Primary Care Provider + Encounter Details Date Type Department Care Team (Late st Contact Info) Description 03/15/2024 Telephone Hematology/Oncology [facility] [address] [place] [address] Tori Braxton CRNP 400 [facility] [place] [address] Allergies Active Allergy Reactions Criticality Noted Date Comments Cephalexin Hives 01/24/2010 As a small child Clindamycin Hives 12/30/2014 " And bad heartburn" As an adult about age 24 Methocarbamol Rash High 06/17/2016 Sulfa Antibiotics Hives 08/05/2006 As a small child Hydrocodone-Acetaminophen Itching 01/01/2014 documented as of this encounter (statuses as of 03/15/2024) Medications FLINTSTONES COMPLETE PO CHEW daily Act [...] Active Topiramate 50 MG Oral Tablet (topAMAX)Indicati ons:COMMUNITY SUPPORT SPECIALIST demyelination (HCC) TAKE 1 TABLET BY [...] Rizatriptan Benzoate 10 MG Oral Tablet (Maxalt)Indicatio ns:COMMUNITY SUPPORT SPECIALIST demyelination (HCC) one at onset. May [...] 150 mgIndications:Depo-Provera contraceptive status 150 mg IM [id number] 02/08/2023 07/27/2025 Acti ve documented as of this encounter (statuses as of 03/15/2024) Active Problems Problem Noted Date Diagnosed Date [...] ICD-10 update of inactive term ROCK RESEARCH OTHER*[id number] 11/17/2007 documented as of this encounter (statuses as of 03/15/2024) Resolved Problems Problem Noted Date Diagnosed Date [...] 08/01/2009 01/01/2014 Overview (08/01/2009): Per Obesity Taxonomy COMMUNITY SUPPORT SPECIALIST demyelination 07/11/2009 09/17/2018 ADVANCE DIRECTIVE INFORMATION [...] as of this encounter (statuses as of 03/15/2024) Immunizations Name Administration Dates Next Due COVID-19 [...] [place] [phone] Frida Ramírez PA-C [address] [facility] [place] [address] 4 3:20 PM EST Office Visit General Internal Medicine Alexey Dominique [place] [address] [place] [address] Kmiberly Figueroa MD [address] [place] [address] 4 8:00 AM EST Hospital Encounter OR [facility], Operating Room, [facility] - 4th Floor [address] [place] [phone] Anita Ha MD [address] [place] [address] 4 8:00 AM EST - 4 8:32 AM EST Surgery OR [facility], Operating Room, [facility] - 4th Floor [address] [place] [phone] Anita Ha MD [address] [place] [address] ESOPHAGOGASTRODUODENOSCOPY (EGD), FLEXIBLE, TRANSORAL, DIAGNOSTIC 4 10:00 AM EST Telemedicine Dermatology, Katarina Santos [address] [facility] [place] [address] Wb, Pharmacist Dermatology E [facility] [address] [facility] [facility] [place] [address] 4 10:00 AM EST Hem/Onc Treatment Hematology/Onc ology Treatment, [place] 200 [facility] [place] [address] Catina, Chair [address] Hem [address] [place] [address] 5 2:30 PM EDT Office Visit Hematology/Onc ology [facility] [place] 200 [facility] [place] [address] Tori Braxton CRNP [address] [place] [address] 5 7:00 AM EDT Pharmacy Neurology Lore [...] this encounter Medical Devices Implanted Type Area Entry Level Sales Representative Device Identifier Shelf Expiration Date Model / Serial / Lot Port Pwr Mri Isp Profile - [id number] Implanted:Qty : 1 on 08/09/2015 by Terrance Curry MD at [place] [facility] [place] Left: Chest CR BARD : PERIPHERAL VASCULAR 05/02/2017 [id number] / / [id number] Description:27 length of cat heter Set Sys Ots 11-6t 165cm - [id number] Implanted:Qty : 1 on 02/13/2024 by Anita Ha MD at OR [facility] [id number] 01/03/2025 100. 10 / / [id number] documented as of this encounter Visit Diagnoses [...] Care Agent (per Health Care Power of Power And Recovery Superintendent document) Care Teams Safe Expert Relationship Specialty Start Date End Date Kimberly Figueroa MD [address] [place] [address], [place] [address] PCP - General Internal Medicine 02/21/21 documented as of this encounter
--- OUTSIDE RECORDS SUMMARY | 2024-04-13 04:53 | External Medical Summary ---
Author Name Unknown Address Unknown Organization K01[place] [place] [address] [place] [address] Laboratory Report Ordering Provider Test Date Status ANSELMONICK 03/13/2024 12:19:30 Final Observation Date Value Abnormality Reference (Units ) Status Vitamin B12 03/13/2024 12:19:30 [phone] (pg/mL) Final Performing Location [facility] - [address] [place] [address]
--- OUTSIDE RECORDS SUMMARY | 2024-04-13 04:54 | External Medical Summary | Summary of Care ---
Author Name Unknown Organization [facility] Address [address] [place] [address] Phone [phone] Care Team Providers Care Rotor Casting Machine Operator Name Role Phone Kimberly Figueroa MD Primary Care Provider + Reason for Visit * Reason Onset Date Comments Order Request 03/06/2024 SCP for Ocrevus due 04/17 Encounter Details Date Type Department Care Team (Late st Contact Info) Description 03/06/[address] [facility] [address] [place] [address] [facility] [address] [place] [address] Order Request (SCP for Ocrevus due 04/17) Allergies Active Allergy Reactions Criticality Noted Date Comments Cephalexin Hives 01/24/2010 As a small child Clindamycin Hives 12/30/2014 " And bad heartburn" As an adult about age 24 Methocarbamol Rash High 06/17/2016 Sulfa Antibiotics Hives 08/05/2006 As a small child Hydrocodone-Acetaminophen Itching 01/01/2014 documented as of this encounter (statuses as of 03/09/2024) Medications Medication Sig Dispensed Refills Start Date [...] months 05/10/2018 Active Glucose Blood (ONETOUCH VERIO) STRPIndications:Hy poglycemia Test blood sugar once daily as directed. Dx: E16.2 100 Strip 11 02/03/2019 Active ONETOUCH DELICA LANCETS 33G MISCIndications:Hy poglycemia Test blood sugar once daily as directed. Dx: E16.2 90 Each 3 02/03/2019 Active Topiramate 50 MG Oral Tablet (topAMAX)Indicatio ns:DIAPER MACHINE TENDER demyelination (HCC) TAKE 1 TABLET BY MOUTH TWICE A DAY 180 Tab 1 11/14/2020 Active Albuterol Sulfate (2.5 MG/3ML) 0.083% Inhalation Nebulization Solution (Proventil)Indicat ions:Moderate persistent asthma with acute exacerbation USE ONE VIAL IN NEBULIZER EVERY 4 HOURS NEEDED FOR WHEEZING DX: J45.30 60 mL 2 12/04/2021 Active Venlafaxine HCl 50 MG Oral Tablet (Effexor)Indicatio ns:AUDELIA (generalized anxiety disorder),Current moderate episode of major depressive disorder without prior episode (HCC) Take 1 Tablet by mouth in the morning and 1 Tablet before bedtime. With food.. 90 Tablet 5 08/14/2022 Active Promethazine HCl 25 MG Oral Tablet (Phenergan)Indicat ions:Nausea Take 1 Tablet by mouth every 6 hours as needed for Nausea. or vomiting 20 Tablet 1 02/19/2023 Active Rizatriptan Benzoate 10 MG Oral Tablet (Maxalt)Indication s:DIAPER MACHINE TENDER demyelination (HCC) one at onset. May repeat [...] Emergency room. 2 Each 3 10/21/2023 Active Fexofenadine-Pseud oephed ER 180-240 MG Tablet Extended Release 24 Hour (Gemma-D Allergy & Congestion) Take 1 Tablet by mouth in the morning. Active Folic Acid 1 MG Oral TabletIndications: H/O gastric bypass,Folic acid deficiency Take 2 Tablets by mouth in the morning. 180 Tablet 1 12/23/2023 Active hydrOXYzine Pamoate 25 MG Oral Capsule (Vistaril)Indicati ons:AUDELIA (generalized anxiety disorder) Take 1 Capsule by mouth 3 times a day as needed for Anxiety (Sleep). 30 Capsule 5 01/14/2024 Active Sertraline HCl 100 MG Oral Tablet (Zoloft)Indication s:Recurrent major depressive disorder, in partial remission (HCC) Take 1 Tablet by mouth in the morning. 90 Tablet 3 02/11/2024 Active Sucralfate 1 GM/10ML Oral Suspension (Carafate) Take 10 mL by mouth in the morning and 10 mL before bedtime. 1800 mL 02/18/2024 5 Active Dupixent 300 MG/2ML Subcutaneous Solution Auto-injector (Dupilumab) Maintenance Dose: Inject 300mg (1 pen) under the skin every two weeks. 4 mL 03/03/2024 Active medroxyPROGESTERon e Acetate 150 MG/ML Intramuscular Suspension (Depo-Provera) INJECT 150 MG INTO A LARGE MUSCLE EVERY 3 MONTHS. 1 mL 4 11/16/2021 4 Discontinu ed(Medicat ion List Clean Up) Omeprazole 40 MG Oral Capsule Delayed Release (PriLOSEC)Indicati ons:Gastrojejunal anastomotic stricture Take 1 Capsule by mouth in the morning and 1 Capsule before bedtime. 84 Capsule 01/24/2024 4 Discontinu ed(End of Procedure) Hospital, Clinic, or Other Facility Administered Medication Ordered Dose Route Frequency Start Date End Date Status medroxyPROGESTERone acetate (Depo-Provera) inj BRYANNA 150 mgIndications:Depo-Provera contraceptive status 150 mg IM [id number] 02/08/2023 07/27/2025 Acti ve documented as of this encounter (statuses as of 03/09/2024) Active Problems Problem Noted Date Diagnosed Date [...] ICD-10 update of inactive term ROCK RESEARCH OTHER*[id number] 11/17/2007 documented as of this encounter (statuses as of 03/09/2024) Resolved Problems Problem Noted Date Diagnosed Date [...] BMI) 08/01/2009 01/01/2014 Overview: Per Obesity Taxonomy DIAPER MACHINE TENDER demyelination 07/11/2009 09/17/2018 ADVANCE DIRECTIVE INFORMATION 07/03/2009 [...] as of this encounter (statuses as of 03/09/2024) Immunizations Name Administration Dates Next Due COVID-19 [...] years old or older) Yes-doesn't drive 01/22/20 Cognitive Status Response Date of Assessm ent Because of a physical, menta l, or emotional condition, do you have serious difficulty concentrating, remembering, or making decisions? (5 years old or older) No 01/22/2024 documented as of this encounter Miscellaneous Notes * Addendum Note - Marcelo Mendoza [facility] - 03/09/2024 10:48 AM ESTAddended by: MARCELO MENDOZA on: 03/09/2024 10:48 AM Modules accepted: Orders * Telephone Encounter - Marcelo Mendoza RPh - 03/09/2024 10:45 AM EST Plan New Supportive Care Plan Treatment Ordered By: Other --- Protocol: SCP - OCRELIZUMAB RAPID [id number] --- Drug to be Infused: Ocrevus --- Dose: 600 mg --- Frequency: every 6 months --- Total Number of Doses: 1 --- Where will the infusion be... SCP placed for 1 dose of Ocrevus as patient needs office visit prior to infusion in October 2024. * Telephone Encounter - Sally Catherine OSA - 03/08/2024 1:53 PM EST I called and left message on [employer], when the pt calls back please schedule per below. Thank you! * Telephone Encounter - Frida Ramírez PA-C - 03/06/2024 3:46 PM EDT OK to place new SCP for this next dose but I won't be able to refill after 08/2024 unless she gets seen. I'll msg scheduling. * Telephone Encounter - Marcelo Mendoza RPh - 03/06/2024 2:19 PM EDT Patient has not been seen since August 2022. Labs up to date. Ok to place SCP? * Telephone Encounter - Madeline Sorenson RN - 03/06/2024 11:52 AM EDT Shaunna will be due for Ocrevus on April 17 We will need a new SCP as the current plan is complete. Thank you. Madeline Sorenson DONOR CENTER TECHNICIAN [facility] [phone] documented in this encounter Plan of Treatment Upcoming Encounters Date Type Department Care Team (Latest Contact Info) Description 4 1:00 PM EST Office Visit Orthopaedics [facility] [address] [place] [address] Richard Sexton DO [address] [place] [address] 4 3:20 PM EST Office Visit General Internal Medicine [facility] [address] [facility] [place] [address] Kimberly Figueroa MD [address] [facility] [place] [address] 4 8:00 AM EST Hospital Encounter OR [facility], Operating Room, [facility] - 4th Floor [address] [place] [phone] Anita Ha MD [address] [address] 4 8:00 AM EST - 4 8:32 AM EST Surgery OR [facility], Operating Room, [facility] - 4th Floor [address] [place] [phone] Anita Ha MD [address] [place] [address] ESOPHAGOGASTRODUODENOSCOPY (EGD), FLEXIBLE, TRANSORAL, DIAGNOSTIC 4 10:00 AM EST Telemedicine Dermatology, Katarina Santos [address] [place] [address] [place] [address] Wb, Pharmacist Dermatology E [facility] [address] [facility] [place] [address] 4 10:00 AM EST Hem/Onc Treatment Hematology/Onc ology Treatment, [place] [address] [place] [address] Catina, Chair 3 Hem Onc [address] [place] [address] 5 2:30 PM EDT Office Visit Hematology/Onc ology [facility] [place] [address] [place], [place] [address] Tori Braxton, SAJAN 400 [facility] [place] [address] 5 7:00 AM EDT Pharmacy Neurology [address] [place] [address] Lore, Pharmacist Neurology 100 [facility] [place] [address] Scheduled Procedures Name Priority Associated Diagnoses Date/Ti [...] this encounter Medical Devices Implanted Type Area Steam Pan Sponger Device Identifier Shelf Expiration Date Model / Serial / Lot Port Pwr Mri Isp Profile - [id number] Implanted:Qty : 1 on 08/09/2015 [place] [facility] [place] Chest CR BARD : PERIPHERAL VASCULAR 05/02/2017 [id number] / / [id number] Description:27 length of cat heter Set Sys Otsc 11-6t 165cm - [id number] Implanted:Qty : 1 on 02/13/2024 by Anita Ha MD at OR [facility] [id number] 01/03/2025 100. 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
--- OUTSIDE RECORDS SUMMARY | 2024-04-13 04:54 | External Medical Summary | Summary of Care ---
Author Name Unknown Organization [facility] Address [address] [place] [address] Phone [phone] Care Team Providers Care Procurement Professional Name Role Phone Kimberly Figueroa MD Primary Care Provider + Encounter Details Date Type Department Care Team (Late st Contact Info) Description 03/09/2024 Orders Only Hematology/Oncology [facility] [place] [address] [place] [phone] Latoya Swift MD [address] [place] [address] Allergies Active Allergy Reactions Criticality Noted Date [...] Active Topiramate 50 MG Oral Tablet (topAMAX)Indication s:CARD FIXER demyelination (HCC) TAKE 1 TABLET BY MOUTH [...] Rizatriptan Benzoate 10 MG Oral Tablet (Maxalt)Indications :CARD FIXER demyelination (HCC) one at onset. May repeat [...] 150 mgIndications:Depo-Provera contraceptive status 150 mg IM [id number] 02/08/2023 07/27/2025 Acti ve documented as of [...] ICD-10 update of inactive term ROCK RESEARCH OTHER*[id number] 11/17/2007 documented as of this encounter (statuses [...] maxillary sinusitis 08/03/2015 MS (multiple sclerosis) 04/18/2015 08/0 06/2017 DVT of upper extremity (deep vein thrombosis) [...] BMI) 08/01/2009 01/01/2014 Overview: Per Obesity Taxonomy CARD FIXER demyelination 07/11/2009 09/17/2018 ADVANCE DIRECTIVE INFORMATION 07/03/2009 [...] (HIB), unspecified 08/22/1990 Hepatitis B, 0-19 yrs 11/18/2001,09/09/2001,09/2001 MMR - Measles/Mumps/Rubella Vaccine 02/19/1994,0 08/22/1990 OPV [...] No 01/22/2024 documented as of this encounter Plan of Treatment Upcoming Encounters Date Type Department Care Team (Latest Contact Info) Description 4 1:00 PM EST Office Visit Orthopaedics [facility] [address] [place] [address] Richard Sexton, [address] [place] [address] 4 3:20 PM EST Office Visit General Internal Medicine [facility] [place] [address] [facility] [address] [place] [address] Kimberly Figueroa MD [address] [place] [address] 4 8:00 AM EST Hospital Encounter OR [facility], Operating Room, [facility] - 4th Floor [address] [place] [address] Anita Ha MD [address] [place] [address] 4 8:00 AM EST - 4 8:32 AM EST Surgery OR [facility], Operating Room, [facility] - 4th Floor [address] [place] [phone] Anita Ha MD [address] [place] [address] ESOPHAGOGASTRODUODENOSCOPY (EGD), FLEXIBLE, TRANSORAL, DIAGNOSTIC 4 10:00 AM EST Telemedicine Dermatology, Katarina Santos [address] [place] [address] Wb, Pharmacist [facility] [address] [place] [address] 4 10:00 AM EST Hem/Onc Treatment Hematology/Onc ology Treatment, [place] [address] [place] [phone] Catina, Chair 3 Hem [facility]c [facility] [address] [place] [address] 5 2:30 PM EDT Office Visit Hematology/[place] [address] [place] [phone] Tori Braxton CRNP 400 [facility] [place] [address] 5 7:00 AM EDT Pharmacy Neurology [address] [place] [phone] Lore, Pharmacist Neurology [address] [place] [address] [place] [address] Scheduled Procedures Name Priority [...] Medical Devices Implanted Type Area Entry Level Accountant Device Identifier Shelf Expiration Date Model / Serial / Lot Port Pwr Mri Isp Profile - [id number] Implanted:Qty : 1 on 08/09/2015 by Terrance Curry MD [place] [facility] [place]: Chest CR BARD : PERIPHERAL VASCULAR 05/02/2017 [id number] / / [id number] Description:27 length of cat heter Set Sys Ots 11-6t 165cm - [id number] Implanted:Qty : 1 on 02/13/2024 by Anita Ha MD at OR [facility] [id number] 01/03/2025 100. 10 / / [id number] documented as of this encounter Advance Directives [...] Care Agent (per Health Care Power of Telegrapher Agent document) Care Teams Procurement Professional Relationship Specialty Start Date End Date Kimberly Figueroa MD 200 [place] [address] PCP - General Internal Medicine 02/21/21 documented as of this encounter
--- OUTSIDE RECORDS SUMMARY | 2024-04-13 04:54 | External Medical Summary | Summary of Care ---
Author Name Unknown Organization [facility] Address [address] [place] [address] Phone [phone] Care Team Providers Care Lingo Cleaner Name Role Phone Kimberly Figueroa MD Primary Care Provider + Reason for Visit * Reason Onset Date Comments Precert Future 03/09/2024 Ocrevus Encounter Details Date Type Department Care Team (Late st Contact Info) Description 03/09/2024 Telephone Hematology/Oncology [facility] [address] [facility] [place] [address] [facility] [address] [place] [address] Precert Future (Ocrevus) Allergies Active [...] Active Topiramate 50 MG Oral Tablet (topAMAX)Indication s:BLOOD DONOR RECRUITER SUPERVISOR demyelination (HCC) TAKE 1 TABLET BY MOUTH [...] Rizatriptan Benzoate 10 MG Oral Tablet (Maxalt)Indications :BLOOD DONOR RECRUITER SUPERVISOR demyelination (HCC) one at onset. May repeat [...] 150 mgIndications:Depo-Provera contraceptive status 150 mg IM [id number] 02/08/2023 07/27/2025 Acti ve documented as of [...] ICD-10 update of inactive term ROCK RESEARCH OTHER*[id number] 11/17/2007 documented as of this encounter (statuses [...] BMI) 08/01/2009 01/01/2014 Overview: Per Obesity Taxonomy BLOOD DONOR RECRUITER SUPERVISOR demyelination 07/11/2009 09/17/2018 ADVANCE DIRECTIVE INFORMATION 07/03/2009 [...] AND IS IN CONTACT WITH [employer] PORTAL DEVELOPER TOLD HER SHE WOULD NOT GET TO HER PAPERWORK UNTIL AFTER THE HOLIDAY). " documented in this encounter Plan of Treatment Upcoming Encounters Date Type Department Care Team (Latest Contact Info) Description 4 1:00 PM EST Office Visit Orthopaedics [facility] [address] [place] [address] Richard Sexton DO [address] [place] [address] 4 3:20 PM EST Office Visit General Internal Medicine [facility] 200 [facility] [place] [address] Kimberly Figueroa MD 200 [facility] [place] [address] 4 8:00 AM EST Hospital Encounter OR [facility], Operating Room, [facility] - 4th Floor [address] [place] [address] Anita Ha MD [address] [place] [address] 4 8:00 AM EST - 4 8:32 AM EST Surgery OR [facility], Operating Room, [facility] - 4th Floor [address] [place] [address] Anita Ha MD [address] [place] [address] ESOPHAGOGASTRODUODENOSCOPY (EGD), FLEXIBLE, TRANSORAL, DIAGNOSTIC 4 10:00 AM EST Telemedicine Dermatology, Katarina Santos [address] [facility] [place] [address] W[place], Pharmacist Dermatology E [facility] [address] [facility] [place] [address] 4 10:00 AM EST Hem/Onc Treatment Hematology/Onc ology Treatment, [place] [address] [place] [address] Catina, Chair 3 Hem Onc [facility] [address] [place] [address] 5 2:30 PM EDT Office Visit Hematology/Onc ology [facility] [place] [address] [place] [address] Tori Braxton CRNP 400 [facility] [place] [address] 5 7:00 AM EDT Pharmacy Neurology [address] [place], [place] [address] Lore, Pharmacist Neurology 100 [facility] [place] [id number] Scheduled Procedures Name Priority Associated Diagnoses Date/Ti [...] this encounter Medical Devices Implanted Type Area Preboarder Device Identifier Shelf Expiration Date Model / Serial / Lot Port Pwr Mri Isp Profile - [id number] Implanted:Qty : 1 on 08/09/2015 by Terrance Curry MD at OR [facility] Left: Chest CR BARD : PERIPHERAL VASCULAR 05/02/2017 [id number] / / [id number] Description:27 length of cat heter Set Sys Otsc 11-6t 165cm - [id number] Implanted:Qty : 1 on 02/13/2024 by Anita Ha MD at OR [facility] [employer] [id number] 01/03/2025 100. 10 / / [id number] documented as of this encounter Advance Directives [...] Care Agent (per Health Care Power of Ceramic Capacitor Processor document) Care Teams Lingo Cleaner Relationship Specialty Start Date End Date Kimberly Figueroa MD [address] [place] [address] PCP - General Internal Medicine 02/21/21 documented as of this encounter
--- OUTSIDE RECORDS SUMMARY | 2024-04-13 04:54 | External Medical Summary | Summary of Care ---
Author Name Unknown Organization [facility] Address [address] [facility] [place] [address] Phone [phone] Care Team Providers Care Director Of Archives Name Role Phone Kimberly Figueroa MD Primary Care Provider + Reason for Visit * Reason Onset Date Comments Medication Refill 03/03/2024 Encounter Details Date Type Department Care Team (Late st Contact Info) Description 03/03/2024 Refill Dermatology, Katarina Santos [address] [facility] [place] [address] Betina Mendoza PA-C [address] [place] [id number] Allergies Active Allergy Reactions Criticality Noted Date Comments Cephalexin Hives 01/24/2010 As a small child Clindamycin Hives 12/30/2014 " And bad heartburn" As an adult about age 24 Hydrocodone Medium 12/26/2018 Other reaction(s): Itching Methocarbamol Rash High 06/17/2016 Sulfa Antibiotics Hives 08/05/2006 As a small child Hydrocodone-Acetaminophen Itching 01/01/2014 documented as of this encounter (statuses as of 03/03/2024) Medications Medication Sig Dispensed Refills Start Date End Date Status FLINTSTONES COMPLETE PO CHEW daily Active Cholecalciferol (VITAMIN D3) 5000 UNITS Tablet Take 1 Cap by mouth daily. Take with additonal 1000 units for total of 6000 units daily 30 Cap 11 6 Active Cranberry 500 MG Capsule Take 1 Capsule by mouth in the morning. 8 Active vitamin b-12 (CYANOCOBALAMIN) 1000 MCG/ML injection Inject 1,000 mcg into a large muscle every 30 days. 8 Active Ocrelizumab 300 MG/10ML Intravenous Solution Administer intravenously. Every 6 months 9 Active Glucose Blood (ONETOUCH VERIO) STRPIndications:Hy poglycemia Test blood sugar once daily as directed. Dx: E16.2 100 Strip 11 9 Active ONETOUCH DELICA LANCETS 33G MISCIndications:Hy poglycemia Test blood sugar once daily as directed. Dx: E16.2 90 Each 3 9 Active Topiramate 50 MG Oral Tablet (topAMAX)Indicatio ns:LINSEED OIL PRESS TENDER demyelination (HCC) TAKE 1 TABLET BY MOUTH TWICE A DAY 180 Tab 1 1 Active medroxyPROGESTERon e Acetate 150 MG/ML Intramuscular Suspension (Depo-Provera) INJECT 150 MG INTO A LARGE MUSCLE EVERY 3 MONTHS. 1 mL 4 2 Active Albuterol Sulfate (2.5 MG/3ML) 0.083% Inhalation Nebulization Solution (Proventil)Indicat ions:Moderate persistent asthma with acute exacerbation USE ONE VIAL IN NEBULIZER EVERY 4 HOURS NEEDED FOR WHEEZING DX: J45.30 60 mL 2 2 Active Venlafaxine HCl 50 MG Oral Tablet (Effexor)Indicatio ns:AUDELIA (generalized anxiety disorder),Current moderate episode of major depressive disorder without prior episode (HCC) Take 1 Tablet by mouth in the morning and 1 Tablet before bedtime. With food.. 90 Tablet 5 3 Active Promethazine HCl 25 MG Oral Tablet (Phenergan)Indicat ions:Nausea Take 1 Tablet by mouth every 6 hours as needed for Nausea. or vomiting 20 Tablet 1 3 Active Rizatriptan Benzoate 10 MG Oral Tablet (Maxalt)Indication s:LINSEED OIL PRESS TENDER demyelination (HCC) one at onset. May repeat two hour if neeed 9 Tablet 5 3 Active Triamcinolone Acetonide 0.1 % External Cream (Aristocort) Apply topically to affected area 2 times a day. Apply to rash areas. 30 g 4 Active Albuterol Sulfate HFA 108 (90 Base) MCG/ACT Inhalation Aerosol Solution INHALE 2 PUFFS BY MOUTH EVERY FOUR HOURS NEEDED FOR WHEEZING 18 g 2 4 Active EPINEPHrine 0.3 MG/0.3ML Injection Solution Auto-injector (Autoinjector) For a severe reaction: Inject in outer thigh following instructions on package and go to the Emergency room. 2 Each 3 4 Active Fexofenadine-Pseud oephed ER 180-240 MG Tablet Extended Release 24 Hour (Gemma-D Allergy & Congestion) Take 1 Tablet by mouth in the morning. Active Folic Acid 1 MG Oral TabletIndications: H/O gastric bypass,Folic acid deficiency Take 2 Tablets by mouth in the morning. 180 Tablet 1 4 Active hydrOXYzine Pamoate 25 MG Oral Capsule (Vistaril)Indicati ons:AUDELIA (generalized anxiety disorder) Take 1 Capsule by mouth 3 times a day as needed for Anxiety (Sleep). 30 Capsule 5 4 Active Omeprazole 40 MG Oral Capsule Delayed Release (PriLOSEC)Indicati ons:Gastrojejunal anastomotic stricture Take 1 Capsule by mouth in the morning and 1 Capsule before bedtime. 84 Capsule 4 03/06/20 24 Active Sertraline HCl 100 MG Oral Tablet (Zoloft)Indication s:Recurrent major depressive disorder, in partial remission (HCC) Take 1 Tablet by mouth in the morning. 90 Tablet 3 4 Active Sucralfate 1 GM/10ML Oral Suspension (Carafate) Take 10 mL by mouth in the morning and 10 mL before bedtime. 1800 mL 4 05/18/19 25 Active Dupixent 300 MG/2ML Subcutaneous Solution Auto-injector (Dupilumab) Maintenance Dose: Inject 300mg (1 pen) under the skin every two weeks. 4 mL 4 Active Dupixent 300 MG/2ML Subcutaneous Solution Pen-injector (Dupilumab)Indicat ions:Rash and nonspecific skin eruption Maintenance Dose: Inject 300mg (1 pen) under the skin every two weeks. 4 mL 2 4 03/03/20 24 Discontinued Hospital, Clinic, or Other Facility Administered Medication Ordered Dose Route Frequency Start Date End Date Status medroxyPROGESTERone acetate (Depo-Provera) inj BRYANNA 150 mgIndications:Depo-Provera contraceptive status 150 mg IM [id number] 02/08/2023 07/27/2025 Acti ve documented as of this encounter (statuses as of 03/03/2024) Active Problems Problem Noted Date Diagnosed Date [...] ICD-10 update of inactive term ROCK RESEARCH OTHER*[id number] 11/17/2007 documented as of this encounter (statuses as of 03/03/2024) Resolved Problems Problem Noted Date Diagnosed Date [...] BMI) 08/01/2009 01/01/2014 Overview: Per Obesity Taxonomy LINSEED OIL PRESS TENDER demyelination 07/11/2009 09/17/2018 ADVANCE DIRECTIVE INFORMATION [...] as of this encounter (statuses as of 03/03/2024) Immunizations Name Administration Dates Next Due COVID-19 [...] encounter Miscellaneous Notes * Telephone Encounter - Judith Singh brittaney - 03/03/2024 1:31 PM EDT Re-issuing Dupixent rx to [facility] due to [facility] update of drug record ID. Only sending remaining refill amount of current script. Judith Singh, PharmD Clinical Pharmacist [facility] 03/03/2024, 1:31 PM documented in this encounter Plan of Treatment Upcoming Encounters Date Type Department Care Team (Latest Contact Info) Description 4 1:00 PM EST Office Visit Orthopaedics [facility] [address] [place] [address] Richard Sexton DO [address] [place] [address] 4 3:20 PM EST Office Visit General Internal Medicine [facility] 200 [facility] [place] [address] Kimberly Figueroa MD 200 [facility] [place] [address] 4 8:00 AM EST Hospital Encounter OR [facility], Operating Room, [facility] - 4th Floor [address] [place] [phone] Anita Ha MD [address] [place] [address] 4 8:00 AM EST - 4 8:32 AM EST Surgery OR [facility], Operating Room, [facility] - 4th Floor [address] [place] [phone] Anita Ha MD [address] [place] [address] ESOPHAGOGASTRODUODENOSCOPY (EGD), FLEXIBLE, TRANSORAL, DIAGNOSTIC 4 10:00 AM EST Telemedicine Dermatology, Katarina Santos [address] [facility] [place] [address] Wb, Pharmacist Dermatology E [facility] [address] [facility] [place] [address] 4 10:00 AM EST Hem/Onc Treatment Hematology/Onc ology Treatment, [place] [address] [place] [address] Catina, Chair 3 Hem Onc [facility] 200 [place] [address] 5 2:30 PM EDT Office Visit Hematology/Onc ology [facility] [place] [address] [place] [address] Tori Braxton CRNP 400 [facility] [place] [id number] 5 7:00 AM EDT Pharmacy Neurology [address] [place] [address] Lisa, Pharmacist Neurology [address] [place] [address] LISA, [place] [id number] Scheduled Procedures Name Priority Associated Diagnoses Date/Ti [...] this encounter Medical Devices Implanted Type Area Paper Control Clerk Device Identifier Shelf Expiration Date Model / Serial / Lot Port Pwr Mri Isp Profile - [id number] Implanted:Qty : 1 on 08/09/2015 by Terrance Curry MD at OR [facility] Left: Chest CR BARD : PERIPHERAL VASCULAR 05/02/2017 [id number] / / [id number] Description:27 length of cat heter Set Sys [facility] 11-6t 165cm - [id number] Implanted:Qty : 1 on 02/13/2024 by Anita Ha MD at OR [facility] [employer] [id number] 01/03/2025 100. 10 / / [id number] documented as of this encounter Advance Directives [...] Care Agent (per Health Care Power of Materials Recycler document) Care Teams Director Of Archives Relationship Specialty Start Date End Date Kimberly Figueroa MD [address] [place] [address] PCP - General Internal Medicine 02/21/21 documented as of this encounter
--- OUTSIDE RECORDS SUMMARY | 2024-04-13 04:54 | External Medical Summary | Summary of Care ---
Author Name Unknown Organization [facility] Address [address] [facility] [place] [address] Phone [phone] Care Team Providers Care Senior Javascript Developer Name Role Phone Kimberly Figueroa MD Primary Care Provider + Encounter Details Date Type Department Care Team (Late st Contact Info) Description 02/13/2024 Telephone OR [facility], Operating Room, [facility] - 4th Floor 400 [facility] [place] [phone] Anita Ha MD [address] [place] [address] Allergies Active Allergy Reactions Criticality Noted Date Comments Cephalexin Hives 01/24/2010 As a small child Clindamycin Hives 12/30/2014 " And bad heartburn" As an adult about age 24 Hydrocodone Medium 12/26/2018 Other reaction(s): Itching Methocarbamol Rash High 06/17/2016 Sulfa Antibiotics Hives 08/05/2006 As a small child Hydrocodone-Acetaminophen Itching 01/01/2014 documented as of this encounter (statuses as of 02/25/2024) Medications Medication Sig Dispensed Refills Start Date [...] Active Topiramate 50 MG Oral Tablet (topAMAX)Indication s:ENGINE MANAGER demyelination (HCC) TAKE 1 TABLET BY MOUTH TWICE A DAY 180 Tab 1 11/14/2020 Active medroxyPROGESTERone Acetate 150 MG/ML Intramuscular Suspension (Depo-Provera) INJECT 150 MG INTO A LARGE MUSCLE EVERY 3 MONTHS. 1 mL 4 11/16/2021 Active Albuterol Sulfate (2.5 MG/3ML) 0.083% Inhalation [...] Rizatriptan Benzoate 10 MG Oral Tablet (Maxalt)Indications :ENGINE MANAGER demyelination (HCC) one at onset. May repeat [...] the morning. 180 Tablet 1 12/23/2023 Active Diclofenac Sodium 1 % External Gel (Voltaren)Indicatio ns:Acute pain of left knee Apply 4 g topically to affected area in the morning and 4 g at noon and 4 g in the evening and 4 g before bedtime. Apply to left knee. 150 g 3 01/14/2024 Active hydrOXYzine Pamoate 25 MG Oral Capsule (Vistaril)Indicatio ns:AUDELIA (generalized anxiety disorder) Take 1 Capsule by mouth 3 times a day as needed for Anxiety (Sleep). 30 Capsule 5 01/14/2024 Active Dupixent 300 MG/2ML Subcutaneous Solution Pen-injector (Dupilumab)Indicati ons:Rash and nonspecific skin eruption Maintenance Dose: Inject 300mg (1 pen) under the skin every two weeks. 4 mL 2 01/21/2024 Active Omeprazole 40 MG Oral Capsule Delayed Release (PriLOSEC)Indicatio ns:Gastrojejunal anastomotic stricture Take 1 Capsule by mouth in the morning and 1 Capsule before bedtime. 84 Capsule 01/24/2024 Active Sertraline HCl 100 MG Oral Tablet (Zoloft)Indications :Recurrent major depressive disorder, in partial remission (HCC) Take 1 Tablet by mouth in the morning. 90 Tablet 3 02/11/2024 Active documented as of this encounter (statuses as of 02/25/2024) Active Problems Problem Noted Date Diagnosed Date [...] ICD-10 update of inactive term ROCK RESEARCH OTHER*[id number] 11/17/2007 documented as of this encounter (statuses as of 02/25/2024) Resolved Problems Problem Noted Date Diagnosed Date [...] exam 06/13/2016 09/17/2018 Overview: 04/22 EMG WNL 2/17 no hx paps--pt declines. Allergic conjunctivitis 05/08/201605/06 [...] BMI) 08/01/2009 01/01/2014 Overview: Per Obesity Taxonomy ENGINE MANAGER demyelination 07/11/2009 09/17/2018 ADVANCE DIRECTIVE INFORMATION 07/03/2009 [...] as of this encounter (statuses as of 02/25/2024) Immunizations Name Administration Dates Next Due COVID-19 [...] encounter Miscellaneous Notes * Telephone Encounter - Annie Nava OSA - 02/25/2024 9:34 AM EDT Joie'd 04/15/24 at [facility]. * Telephone Encounter - Annie Nava OSA - 02/24/2024 4:41 PM EDT Lmm for pt. * Telephone Encounter - Anita Ha MD - 02/24/2024 4:04 PM EDT Needs [facility] in case she needs a stent or suturing. * Telephone Encounter - Yolanda Montes OSA - 02/13/2024 3:44 PM EDT Can I schedule at [facility] or do you want it at [facility]? * Telephone Encounter - Anita Ha MD - 02/13/2024 12:27 PM EDT Please schedule repeat EGD with me in 2 months. documented in this encounter Plan of Treatment Upcoming Encounters Date Type Department Care Team (Latest Contact Info) Description 4 1:00 PM EST Office Visit [facility]opaedics [facility] [place] [address] Richard Sexton, 132 [facility] [place] [address] 4 3:20 PM EST Office Visit General Internal Medicine [facility] Catina [place] [address] [place] [address] Kimberly Figueroa MD [address] [place] [address] 4 10:00 AM EST Telemedicine Dermatology, Katarina Santos [address] [facility] [place] [address] Wb, Pharmacist Dermatology [facility] [address] [facility] [place] [address] 4 10:18 AM EST Hospital Encounter OR [facility], Operating Room, [facility] - 4th Floor [address] [place] [phone] Anita Ha MD [address] [place] [address] 4 10:18 AM EST - 4 10:50 AM EST Surgery OR [facility], Operating Room, [facility] - 4th Floor [address] [place] [phone] Anita Ha MD [address] [place] [address] ESOPHAGOGASTRODUODENOSCOPY (EGD), FLEXIBLE, TRANSORAL, DIAGNOSTIC 4 10:00 AM EST Hem/Onc Treatment Hematology/Onc ology Treatment, [place] [address] [place] [address] Catina, Chair 3 Hem Onc [place] [address] [place] [address] 5 2:30 PM EDT Office Visit Hematology/Onc ology [facility] [place] [address] [place] [address] Tori Braxton CRNP 400 [facility] [place] [address] 5 7:00 AM EDT Pharmacy Neurology [address] [place] [phone] Lore, Pharmacist Neurology 100 [facility] [place] [address] Scheduled Procedures Name Priority Associated Diagnoses Date/Ti me ESOPHAGOGASTRODUODENOSCOPY ( EGD), FLEXIBLE, TRANSORAL, DIAGNOSTIC 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 10:18 AM EST Health Maintenance Due Date Last [...] this encounter Medical Devices Implanted Type Area Grinder Set Up Operator External Device Identifier Shelf Expiration Date Model / Serial / Lot Port Pwr Mri Isp Profile - [id number] Implanted:Qty : 1 on 08/09/2015 by Terrance Curry MD at OR [facility] Left: Chest CR BARD : PERIPHERAL VASCULAR 05/02/2017 [id number] / / [id number] Description:27 length of cat heter Set Sys Ots 11-6t 165cm - [id number] Implanted:Qty : 1 on 02/13/2024 by Anita Ha MD at OR [facility] [employer] [id number] 01/03/2025 100. 10 / / [id number] documented as of this encounter Advance Directives [...] Care Agent (per Health Care Power of Allergist/Immunologist document) Care Teams Senior Javascript Developer Relationship Specialty Start Date End Date Kimberly Figueroa MD 200 [place] [address] PCP - General Internal Medicine 02/21/21 documented as of this encounter
--- OUTSIDE RECORDS SUMMARY | 2024-04-13 04:54 | External Medical Summary | Summary of Care ---
Author Name Unknown Organization [facility] Address [address] [place] [address] Phone [phone] Care Team Providers Care Registered Respiratory Therapist Name Role Phone Kimberly Figueroa MD Primary Care Provider + Reason for Visit * Reason Onset Date Comments Order Request 03/06/2024 SCP for Ocrevus due 04/17 Encounter Details Date Type Department Care Team (Late st Contact Info) Description 03/06/2024 Telephone Hematology Oncology [facility] [address] [place] [address] [facility] [address] [place] [address] Order Request (SCP for Ocrevus due 04/17) Allergies Active Allergy Reactions Criticality Noted Date Comments Cephalexin Hives 01/24/2010 As a small child Clindamycin Hives 12/30/2014 " And bad heartburn" As an adult about age 24 Methocarbamol Rash High 06/17/2016 Sulfa Antibiotics Hives 08/05/2006 As a small child Hydrocodone-Acetaminophen Itching 01/01/2014 documented as of this encounter (statuses as of 03/08/2024) Medications Medication Sig Dispensed Refills Start Date [...] Active Topiramate 50 MG Oral Tablet (topAMAX)Indicatio ns:STRESS ANALYST demyelination (HCC) TAKE 1 TABLET BY [...] Rizatriptan Benzoate 10 MG Oral Tablet (Maxalt)Indication s:STRESS ANALYST demyelination (HCC) one at onset. May [...] 150 mgIndications:Depo-Provera contraceptive status 150 mg IM [id number] 02/08/2023 07/27/2025 Acti ve documented as of this encounter (statuses as of 03/08/2024) Active Problems Problem Noted Date Diagnosed Date [...] ICD-10 update of inactive term ROCK RESEARCH OTHER*[id number] 11/17/2007 documented as of this encounter (statuses as of 03/08/2024) Resolved Problems Problem Noted Date Diagnosed Date [...] BMI) 08/01/2009 01/01/2014 Overview: Per Obesity Taxonomy STRESS ANALYST demyelination 07/11/2009 09/17/2018 ADVANCE DIRECTIVE INFORMATION [...] as of this encounter (statuses as of 03/08/2024) Immunizations Name Administration Dates Next Due COVID-19 [...] encounter Miscellaneous Notes * Telephone Encounter - Sally Catherine OSA - 03/08/2024 1:53 PM EST I called and left message on voicemail, when the pt calls back please schedule per below. Thank you! * Telephone Encounter - Frida Ramírez PA-C - 03/06/2024 3:46 PM EDT OK to place new SCP for this next dose but I won't be able to refill after 08/2024 unless she gets seen. I'll msg scheduling. * Telephone Encounter - Archana Fischer RPh - 03/06/2024 2:19 PM EDT Patient has not been seen since August 2022. Labs up to date. Ok to place SCP? * Telephone Encounter - Madeline Sorenson RN - 03/06/2024 11:52 AM EDT Shaunna will be due for Ocrevus on April 17 We will need a new SCP as the current plan is complete. Thank you. Madeline Sorneson HEAVY LIFT RIGGER [facility] [phone] documented in this encounter Plan of Treatment Upcoming Encounters Date Type Department Care Team (Latest Contact Info) Description 4 1:00 PM EST Office Visit Orthopaedics [facility] [address] [place] [address] Richard Sexton, [address] [place] [address] 4 3:20 PM EST Office Visit General Internal Medicine [facility]ique [place] [address] [place] [address] Kimberly Figueroa MD [address] [place] [address] 4 8:00 AM EST Hospital Encounter OR [facility], Operating Room, [facility] - 4th Floor [address] [place] [phone] Anita Ha MD [address] [place] [address] 4 8:00 AM EST - 4 8:32 AM EST Surgery OR [facility], Operating Room, [facility] - 4th Floor [address] [place] [phone] Anita Ha MD [address] [place] [address] ESOPHAGOGASTRODUODENOSCOPY (EGD), FLEXIBLE, TRANSORAL, DIAGNOSTIC 4 10:00 AM EST Telemedicine Dermatology, Katarina Santos [address] [facility] [place] [address] [place], Pharmacist Dermatology [facility] [address] [facility] [place] [address] 4 10:00 AM EST Hem/Onc Treatment Hematology/Onc ology Treatment, [place] [address] [facility] [phone] Catina, Chair 3 Hem Onc [address] [place] [address] 5 2:30 PM EDT Office Visit Hematology/Onc ology [facility] [place] [place] [address] Tori Braxton CRNP [address] [facility] [place] [address] 5 7:00 AM EDT Pharmacy Neurology [address] [place] [phone] Lore, Pharmacist Neurology [address] [facility] [place] [address] Scheduled Procedures Name Priority [...] encounter Medical Devices Implanted Type Area Processing Technician Device Identifier Shelf Expiration Date Model / Serial / Lot Port Pwr Mri Isp Profile - [id number] Implanted:Qty : 1 on 08/09/2015 by Terrance Curry MD at OR [facility] Left: Chest CR BARD : PERIPHERAL VASCULAR 05/02/2017 [id number] / / [id number] Description:27 length of cat heter Set Sys Ots 11-6t 165cm - [id number] Implanted:Qty : 1 on 02/13/2024 by Anita Ha MD at OR [facility] [id number] 01/03/2025 100. 10 / / [id number] documented as of this encounter Advance Directives [...] Care Agent (per Health Care Power of Senior Managing Director document) Care Teams Registered Respiratory Therapist Relationship Specialty Start Date End Date Kimberly Figueroa MD [address] [place] [address], [place] [address] PCP - General Internal Medicine 02/21/21 documented as of this encounter
--- OUTSIDE RECORDS SUMMARY | 2024-04-13 04:54 | External Medical Summary | Summary of Care ---
Author Name Unknown Organization [facility] Address [address] [facility] [place] [address] Phone [phone] Care Team Providers Care Professor Of Political Science Name Role Phone Kimberly Figueroa MD Primary Care Provider + Reason for Visit * Reason Comments Cold Symptoms Encounter Details Date Type Department Care Team (Latest Contact Info) Description 03/07/2024 1:30 PM EDT Convenient Care Visit [facility] [address] [place] [address] Yair Bustamante PA-C [address] [place] [address] Right otitis media, unspecified otitis media type*; Rhinosinusitis Allergies Active Allergy Reactions Criticality Noted Date Comments Cephalexin Hives 01/24/2010 As a small child Clindamycin Hives 12/30/2014 " And bad heartburn" As an adult about age 24 Methocarbamol Rash High 06/17/2016 Sulfa Antibiotics Hives 08/05/2006 As a small child Hydrocodone-Acetaminophen Itching 01/01/2014 documented as of this encounter (statuses as of 03/07/2024) Medications Medication Sig Dispensed Refills Start Date [...] Active Topiramate 50 MG Oral Tablet (topAMAX)Indicatio ns:WO[employer]WORKING [employer]ER demyelination (HCC) TAKE 1 TABLET BY [...] Rizatriptan Benzoate 10 MG Oral Tablet (Maxalt)Indication s:WO[employer]WORKING [employer]ER demyelination (HCC) one at onset. May [...] Active Amoxicillin-Pot Clavulanate 875-125 MG Oral Tablet (Augmentin)Indicat ions:Right otitis media, unspecified otitis media type,Rhinosinusiti s Take 1 Tablet by mouth in the morning and 1 Tablet before bedtime. Do all this for 10 days. 20 Tablet 03/07/2024 4 Active medroxyPROGESTERon e Acetate 150 MG/ML Intramuscular Suspension (Depo-Provera) INJECT 150 MG INTO A LARGE MUSCLE EVERY 3 MONTHS. 1 mL 4 11/16/2021 4 Discontinu ed(Medicat ion List Clean Up) Omeprazole 40 MG Oral Capsule Delayed Release (PriLOSEC)Indicati ons:Gastrojejunal anastomotic stricture Take 1 Capsule by mouth in the morning and 1 Capsule before bedtime. 84 Capsule 01/24/2024 Discontinu ed(End of Procedure) Hospital, Clinic, or Other Facility Administered Medication Ordered Dose Route Frequency Start Date End Date Status medroxyPROGESTERone acetate (Depo-Provera) inj BRYANNA 150 mgIndications:Depo-Provera contraceptive status 150 mg IM [id number] 02/08/2023 07/27/2025 Acti ve documented as of this encounter (statuses as of 03/07/2024) Active Problems Problem Noted Date Diagnosed Date [...] ICD-10 update of inactive term ROCK RESEARCH OTHER*[id number] 11/17/2007 documented as of this encounter (statuses as of 03/07/2024) Resolved Problems Problem Noted Date Diagnosed Date [...] BMI) 08/01/2009 01/01/2014 Overview: Per Obesity Taxonomy WO[employer]ING [employer]ER demyelination 07/11/2009 09/17/2018 ADVANCE DIRECTIVE INFORMATION [...] as of this encounter (statuses as of 03/07/2024) Immunizations Name Administration Dates Next Due COVID-19 [...] on file documented as of this encounter Last Filed Vital Signs Vital Sign Reading Time Taken Comments Blood Pressure 126/100 03/07/2024 11:53 AM EDT Pulse 90 03/07/2024 11:53 AM EDT Temperature 37.1 C (98.7 F) 03/07/2024 11:53 AM E DT Respiratory Rate - - Oxygen Saturation 99% 03/07/2024 11:53 AM EDT Inhaled Oxygen Concentration - - Weight 98.5 kg (217 lb 3.2 oz) 03/07/2024 11:53 AM EDT Height - - Body Mass Index 33.3 02/13/2024 9:55 AM EDT documented in this encounter Functional Status Functional Status Response [...] No 01/22/2024 documented as of this encounter Progress Notes * Yari Bustamante PA-C - 03/07/2024 12:05 PM EDT Convenient Care Basic Exam Shaunna Jerome is a 33 year old year old female who presents for evaluation of stuffy nose, runny nose, increased pressure, ear pain, sneezing. Symptoms started yesterday. Tried mucinex sinus. Has MS, compromised immune system per mom. Review of Systems Constitutional: Negative. HENT: Positive for ear pain, rhinorrhea, sinus pressure, sinus pain and sneezing. Neurological: Positive for headaches. 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 PONV (postoperative nausea and vomiting) Past Surgical History: Procedure Laterality Date ANESTHESIA FOR CAT OR MRI SCAN N/A 06/21/2022 ANESTHESIA FOR NON-INVASIVE IMAGING (MRI OR CT) performed by [facility] [place] [facility] [place] [facility] ANESTHESIA FOR CAT OR MRI SCAN N/A 01/16/2024 ANESTHESIA FOR NON-INVASIVE IMAGING (MRI OR CT) performed by [facility] [facility] [place] at [facility] EGD, FLEXIBLE, DIAGNOSTIC 07/16/2011 UPPER GI ENDOSCOPY DIAGNOSTIC performed by GAURAV AGUILERA III at [facility] EGD, FLEXIBLE, DIAGNOSTIC 08/09/2011 UPPER GI ENDOSCOPY DIAGNOSTIC performed by GAURAV AGUILERA III at [facility] EGD, FLEXIBLE, DIAGNOSTIC 12/03/2011 UPPER GI ENDOSCOPY DIAGNOSTIC performed by Gauarv Aguilera III, MD at [facility] EGD, FLEXIBLE, DIAGNOSTIC 06/03/2013 ESOPHAGOGASTRODUODENOSCOPY (EGD), FLEXIBLE, TRANSORAL, DIAGNOSTIC performed by Gaurav Aguilera III, MD at ENDOSCOPY [facility] EGD, FLEXIBLE, DIAGNOSTIC 08/06/2013 ESOPHAGOGASTRODUODENOSCOPY (EGD), FLEXIBLE, TRANSORAL, DIAGNOSTIC performed by Caesar De La Torre [facility] ENDOSCOPY [facility] EGD, FLEXIBLE, DIAGNOSTIC 09/22/2013 ESOPHAGOGASTRODUODENOSCOPY (EGD), FLEXIBLE, TRANSORAL, DIAGNOSTIC performed by Gaurav Aguilera III, MD at [facility] EGD, FLEXIBLE, DIAGNOSTIC N/A 11/10/2014 ESOPHAGOGASTRODUODENOSCOPY (EGD), FLEXIBLE, TRANSORAL, DIAGNOSTIC performed by Gaurav Aguilera MD at ENDOSCOPY [facility] EGD, FLEXIBLE, DIAGNOSTIC 06/26/2019 normal / ESOPHAGOGASTRODUODENOSCOPY (EGD), FLEXIBLE, TRANSORAL, DIAGNOSTIC performed by Carmelo Brooks MD at ENDOSCOPY [facility] EGD, FLEXIBLE, DIAGNOSTIC 04/07/2020 normal / ESOPHAGOGASTRODUODENOSCOPY (EGD), FLEXIBLE, TRANSORAL, DIAGNOSTIC performed by Carmelo Brooks MD at ENDOSCOPY [facility] EGD, FLEXIBLE, DIAGNOSTIC 12/22/2021 gastrojejunal anastomosis ulcer w/ active bleeding / INPT [facility] EGD, FLEXIBLE, DIAGNOSTIC N/A 03/19/2023 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/repeat 3 months/ESOPHAGOGASTRODUODENOSCOPY (EGD), FLEXIBLE, TRANSORAL, DIAGNOSTIC performed by Anita Ha MD at OR [facility] EGD, FLEXIBLE, DIAGNOSTIC 11/09/2022 Non-severe esophagitis, severe stenosis and ulceration - gastrojejunal anastomosis / [facility] EGD, FLEXIBLE, DIAGNOSTIC N/A 02/07/2023 mingo-en-Y gastrojejunostomy with gastrojejunal anastomosis, severe stenosis/schedule Axios stent/EGD/[facility]I EGD, FLEXIBLE, DIAGNOSTIC N/A 01/17/2024 ESOPHAGOGASTRODUODENOSCOPY (EGD), FLEXIBLE, TRANSORAL, DIAGNOSTIC performed by Anita Ha MD at OR [facility] EGD, FLEXIBLE, DIAGNOSTIC N/A 01/23/2024 ESOPHAGOGASTRODUODENOSCOPY (EGD), FLEXIBLE, TRANSORAL, DIAGNOSTIC performed by Amado Alvarez DO at ENDOSCOPY [facility] EGD, FLEXIBLE, DIAGNOSTIC N/A 02/13/2024 ESOPHAGOGASTRODUODENOSCOPY (EGD), FLEXIBLE, TRANSORAL, DIAGNOSTIC performed by Anita Ha MD at OR [facility] EGD, FLEXIBLE, TRANSENDOSCOPIC DILATION <30MM N/A 11/10/2014 ESOPHAGOGASTRODUODENOSCOPY (EGD), FLEXIBLE, TRANSORAL, BALLOON DILATION LESS THAN 30MM performed byGaurav Aguilera MD at ENDOSCOPY [facility] GASTRIC REVISION FOR OBESITY 05/31/2008 GASTRIC RESTRICTIVE PROCEDURE WITH BYPASS performed by GAURAV AGUILERA III at [facility] INFORMATION dental INFORMATION 10/06/2009 [facility] placement of A-port central venous access catheter tunneled with port via left subclavian apporach [facility] ACC DEV;5 YRS/OLDER Right 04/12/2015 INSERT TUNNELED CENTRAL VENOUS ACCESS WITH SUBQ PORT performed by Fabio Dobbins MD at OR [facility] INSER TUNN ACC DEV;5 YRS/OLDER N/A 08/09/2015 INSERT TUNNELED CENTRAL VENOUS ACCESS WITH SUBQ PORT performed by Terrance [place] MD at OR [facility] LAPAROSCOPY; CHOLECYSTECTOMY 02/17/2013 02/17/2013 at [facility], Laparoscopic cholecystectomy Dr. Crowell with operations manager assistant Dino Theodore PA-C MAXIL SINUS ENDOSCOPY W/TISS REMOVE Bilateral 12/26/2018 NASAL SINUS ENDOSCOPY MAXILLA ANTROSTOMY REMOVE TISSUE performed by Anna Ferro MD at [facility] MISCELLANEOUS ORDER (HS ONLY) Aport NASAL ENDOSCOPY,TOTAL ETHMOIDECTOMY Bilateral 12/26/2018 NASAL SINUS ENDOSCOPY WITH ETHMOIDECTOMY TOTAL performed by Anna eFrro MD at OR [facility] NASAL/SINUS ENDOSCOPY, SURGICAL Right 12/26/2018 NASAL SINUS ENDOSCOPY WITH EVA BULLOSA RESECTION performed by Anna Ferro MD at OR [facility] NASAL/SINUS ENDOSCOPY, SURGICAL Bilateral 12/26/2018 NASAL SINUS ENDOSCOPY FRONTAL SINUS EXPLORATION REMOVE TISSUE performed by Anna Ferro MD at OR [facility] REMOVAL OF TONSILS, UNDER AGE 11 REPAIR OF NASAL SEPTUM N/A 12/26/2018 SEPTOPLASTY performed by Anna Ferro MD at OR [facility] STEREOTACTIC CRANIAL EXTRADURAL NAVIGATION N/A 12/26/2018 STEREOTACTIC CRANIAL EXTRADURAL NAVIGATION performed by Anna Ferro MD at [facility] THERAPEUTIC FRACTURE OF NOSE Bilateral 12/26/2018 FRACTURE OF NASAL TURBINATES THERAPEUTIC performed by Anna Ferro MD at OR [facility] WEDGE BIOPSY OF LIVER 05/31/2008 BIOPSY OF LIVER WEDGE performed by GAURAV AGUILERA III at OR [facility] Social History Tobacco Use Smoking status: Never Smokeless tobacco: Never Tobacco comments: no passive smoke exposures Substance Use Topics Alcohol use: Yes Alcohol/week: 1.0 - 2.0 standard drink of alcohol Types: 1 - 2 12 oz of beer per week Comment: occassional Vaping/E-Cigarette Use Vaping/E-Cigarette Use Never User Vaping/E-Cigarette Substances Vaping/E-Cigarette Devices Patient Active Problem List Diagnosis Postgastric surgery syndrome ROCK RESEARCH OTHER*[id number] Chronic sinusitis Migraine Mild persistent asthma without complication Gastrojejunal anastomotic stricture Iron deficiency anemia Insomnia Mixed rhinitis B12 deficiency Allergic rhinitis due to dust mite Encounter for insertion of venous access port History of DVT (deep vein thrombosis) Major depressive disorder, recurrent, mild (HCC) Multiple sclerosis (HCC) Hypoglycemia Optic nerve drusen, bilateral Gastroesophageal reflux disease without esophagitis Current moderate episode of major depressive disorder without prior episode (HCC) AUDELIA (generalized anxiety disorder) 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 Take with additonal 1000 units for total of 6000 units daily 30 Cap 11 Cranberry 500 MG Capsule Take 1 Capsule by mouth in the morning. vitamin b-12 (CYANOCOBALAMIN) 1000 MCG/ML injection Inject 1,000 mcg into a large muscle every 30 days. Ocrelizumab 300 MG/10ML Intravenous Solution Administer intravenously. Every 6 months Glucose Blood (ONETOUCH VERIO) STRP Test blood sugar once daily as directed. Dx: E16.2 100 Strip 11 ONETOUCH DELICA LANCETS 33G MISC Test blood sugar once daily as directed. Dx: E16.2 90 Each 3 Topiramate 50 MG Oral Tablet (topAMAX) TAKE 1 TABLET BY MOUTH TWICE A DAY 180 Tab 1 medroxyPROGESTERone Acetate 150 MG/ML Intramuscular Suspension (Depo-Provera) INJECT 150 MG INTO A LARGE MUSCLE EVERY 3 MONTHS. 1 mL 4 Albuterol Sulfate (2.5 MG/3ML) 0.083% Inhalation Nebulization Solution (Proventil) USE ONE VIAL IN NEBULIZER EVERY 4 HOURS NEEDED FOR WHEEZING DX: J45.30 60 mL 2 Venlafaxine HCl 50 MG Oral Tablet (Effexor) Take 1 Tablet by mouth in the morning and 1 Tablet before bedtime. With food.. 90 Tablet 5 Promethazine HCl 25 MG Oral Tablet (Phenergan) Take 1 Tablet by mouth every 6 hours as needed for Nausea. or vomiting 20 Tablet 1 Rizatriptan Benzoate 10 MG Oral Tablet (Maxalt) one at onset. May repeat two hour if neeed 9 Tablet5 Triamcinolone Acetonide 0.1 % External Cream (Aristocort) Apply topically to affected area 2 times a day. Apply to rash areas. 30 g 0 Albuterol Sulfate HFA 108 (90 Base) MCG/ACT Inhalation Aerosol Solution INHALE 2 PUFFS BY MOUTH EVERY FOUR HOURS NEEDED FOR WHEEZING 18 g 2 EPINEPHrine 0.3 MG/0.3ML Injection Solution Auto-injector (Autoinjector) For a severe reaction: Inject in outer thigh following instructions on package and go to the Emergency room. 2 Each 3 Fexofenadine-Pseudoephed ER 180-240 MG Tablet Extended Release 24 Hour (Gemma- D Allergy & Congestion) Take 1 Tablet by mouth in the morning. Folic Acid 1 MG Oral Tablet Take 2 Tablets by mouth in the morning. 180 Tablet 1 hydrOXYzine Pamoate 25 MG Oral Capsule (Vistaril) Take 1 Capsule by mouth 3 times a day as needed for Anxiety (Sleep). 30 Capsule 5 Sertraline HCl 100 MG Oral Tablet (Zoloft) Take 1 Tablet by mouth in the morning. 90 Tablet 3 Sucralfate 1 GM/10ML Oral Suspension (Carafate) Take 10 mL by mouth in the morning and 10 mL beforebedtime. 1800 mL 0 Dupixent 300 MG/2ML Subcutaneous Solution Auto-injector (Dupilumab) Maintenance Dose: Inject 300mg (1 pen) under the skin every two weeks. 4 mL 0 Current Facility-Administered Medications Medication Dose Route Frequency Provider Last Rate Last Admin medroxyPROGESTERone acetate (Depo-Provera) inj BRYANNA 150 mg 150 mg Intramuscular Q90 Days Jenny Kumar MD 150 mg at 02/19/24 1139 Nursing Notes and Vital Signs reviewed. BP 126/100 | Pulse 90 | Temp 37.1 C (98.7 F) | Wt 98.5 kg (217 lb 3.2 oz) | SpO2 99% | BMI 33.30 kg/m | BSA 2.17 m Physical Exam Vitals and nursing note reviewed. Constitutional: Appearance: Normal appearance. HENT: Head: Normocephalic. Right Ear: Tympanic membrane is erythematous. Left Ear: Tympanic membrane normal. Nose: Nose normal. Mouth/Throat: Mouth: Mucous membranes are moist. Eyes: Extraocular Movements: Extraocular movements intact. Conjunctiva/sclera: Conjunctivae normal. Cardiovascular: Rate and Rhythm: Normal rate and regular rhythm. Pulmonary: Effort: Pulmonary effort is normal. Breath sounds: Normal breath sounds. Musculoskeletal: General: Normal range of motion. Cervical back: Normal range of motion and neck supple. Skin: General: Skin is warm. Neurological: General: No focal deficit present. Mental Status: She is alert and oriented to person, place, and time. Psychiatric: Mood and Affect: Mood normal. ASSESSMENT: Right otitis media, unspecified otitis media type (Primary) - Amoxicillin-Pot Clavulanate 875-125 MG Oral Tablet (Augmentin); Take 1 Tablet by mouth in the morning and 1 Tablet before bedtime. Do all this for 10 days. Rhinosinusitis - Amoxicillin-Pot Clavulanate 875-125 MG Oral Tablet (Augmentin); Take 1 Tablet by mouth in the morning and 1 Tablet before bedtime. Do all this for 10 days. Go to ER with any concerning changes, including difficulty breathing, worsening pain. Return or make appointment with PCP if no improvement within 3-5 days. Yair Bustamante PA-C [address] [address] * Laurence Collins LPN - 03/07/2024 11:48 AM EDT Patient spelled last name and verbalized birthdate to verify identity. Nursing Notes: CC: Chief Complaint Patient presents with Cold Symptoms Brief Hx: patient reports stuffy nose, LENNON, sneezing, bilateral ear congestion Duration/Onset: 03/06/24 OTC meds: Mucinex Sinus Accompanied by: mother, Kajal and niece Lidia documented in this encounter Plan of Treatment Upcoming Encounters Date Type Department Care Team (Latest Contact Info) Description 4 12:20 PM EST Office Visit Family Practice [facility] [address] [place] [address] Marcelle Casey CRNP [address] [place] [address] 4 1:00 PM EST Office Visit Orthopaedics [facility] [address] [place] [address] Richard Sexton DO [address] [place] [address] 4 3:20 PM EST Office Visit General Internal Medicine [place] Michelle Dominique [address] [place] [address] Kimberly Figueroa MD [address] [facility] [place] [address] 4 8:00 AM EST Hospital Encounter OR [facility], Operating Room, [facility] - 4th Floor [address] [place] [phone] Anita Ha MD [address] [place] [address] 4 8:00 AM EST - 4 8:32 AM EST Surgery OR [facility], Operating Room, [facility] - 4th Floor [address] [facility] [place] [address] Anita Ha MD [address] [place] [address] ESOPHAGOGASTRODUODENOSCOPY (EGD), FLEXIBLE, TRANSORAL, DIAGNOSTIC 4 10:00 AM EST Telemedicine Dermatology, Katarina Santos [address] [place] [address] [place], Pharmacist Dermatology [address] [place] [address] 4 10:00 AM EST Hem/Onc Treatment Hematology/Onc ology Treatment, [place] [address] [place] [phone] Catina, Chair 3 Hem Onc [address] [place] [address] 5 2:30 PM EDT Office Visit Hematology/Onc ology Alexey Dominique [place] [address] [facility] [place], [place] [address] Tori Braxton CRNP [address] [place] [address] 5 7:00 AM EDT Pharmacy Neurology [address] [place] [phone] Lore, Pharmacist [facility]rology [address] [facility] [address] Scheduled Procedures Name Priority Associated [...] this encounter Medical Devices Implanted Type Area Partnership Marketing Manager Device Identifier Shelf Expiration Date Model / Serial / Lot Port Pwr Mri Isp Profile - [id number] Implanted:Qty : 1 on 08/09/2015 by Terrance [place] MD at OR [facility] Left: Chest CR BARD : PERIPHERAL VASCULAR 05/02/2017 [id number] / / [id number] Description:27 length of cat heter Set Sys Otsc 11-6t 165cm - [id number] Implanted:Qty : 1 on 02/13/2024 by Anita Ha MD at OR [facility] ENDOSCOPY [id number] 01/03/2025 100. 10 / / [id number] documented as of this encounter Visit Diagnoses Diagnosis Right otitis media, unspecified otitis media type- Primary Rhinosinusitis Unspecified sinusitis (chronic) Enteroenteric fistula Fistula of intestine, excluding rectum [...] Agents on File Name Relationship Healthcare Agent [facility] Communication Lashanda Jerome Mother First Alternate Health Care Agent (per Health Care Power of National Van Owner Operator document) Care Teams Professor Of Political Science Relationship Specialty Start Date End Date Kimberly Figueroa MD [address] [place] [address] PCP - General Internal Medicine 02/21/21 documented as of this encounter
--- OUTSIDE RECORDS SUMMARY | 2024-04-13 04:54 | External Medical Summary | Summary of Care ---
Author Name Unknown Organization [facility] Address [address] [place] [address] Phone [phone] Care Team Providers Care Annual Giving Director Name Role Phone Kimberly Figueroa MD Primary Care Provider + Reason for Visit * Reason Onset Date Comments Order Request 03/06/2024 SCP for Ocrevus due 04/17 Encounter Details Date Type Department Care Team (Late st Contact Info) Description 03/06/2024 Telephone Hematology Oncology [facility] [address] [place] [address] [facility] [address] [place] [address] Order Request (SCP for Ocrevus [...] as of this encounter (statuses as of 03/06/2024) Medications Medication Sig Dispensed Refills Start Date End Date Status FLINTSBREEZYES COMPLETE PO CHEW daily Active Cholecalciferol (VITAMIN [...] Active Topiramate 50 MG Oral Tablet (topAMAX)Indication s:HOUSECLEANER FLOOR demyelination (HCC) TAKE 1 TABLET BY MOUTH [...] Rizatriptan Benzoate 10 MG Oral Tablet (Maxalt)Indications :HOUSECLEANER FLOOR demyelination (HCC) one at onset. May repeat [...] Anxiety (Sleep). 30 Capsule 5 01/14/2024 Active Omeprazole 40 MG Oral Capsule Delayed Release (PriLOSEC)Indicatio ns:Gastrojejunal anastomotic stricture Take 1 Capsule by mouth in the morning and 1 Capsule before bedtime. 84 Capsule 01/24/2024 4 Active Sertraline HCl 100 MG Oral Tablet [...] every two weeks. 4 mL 03/03/2024 Active Hospital, Clinic, or Other Facility Administered Medication Ordered Dose Route Frequency Start Date End Date Status medroxyPROGESTERone acetate (Depo-Provera) inj BRYANNA 150 mgIndications:Depo-Provera contraceptive status 150 mg IM [id number] 02/08/2023 07/27/2025 Acti ve documented as of this encounter (statuses as of 03/06/2024) Active Problems Problem Noted Date Diagnosed Date [...] ICD-10 update of inactive term ROCK RESEARCH OTHER*[id number] 11/17/2007 documented as of this encounter (statuses as of 03/06/2024) Resolved Problems Problem Noted Date Diagnosed Date [...] BMI) 08/01/2009 01/01/2014 Overview: Per Obesity Taxonomy HOUSECLEANER FLOOR demyelination 07/11/2009 09/17/2018 ADVANCE DIRECTIVE INFORMATION 07/03/2009 [...] as of this encounter (statuses as of 03/06/2024) Immunizations Name Administration Dates Next Due COVID-19 [...] encounter Miscellaneous Notes * Telephone Encounter - Archana Fischer [facility] - 03/06/2024 2:19 PM EDT Patient has not been seen since August 2022. Labs up to date. Ok to place SCP? * Telephone Encounter - Madeline Sorenson RN - 03/06/2024 11:52 AM EDT Shaunna will be due for Ocrevus on April 17 We will need a new SCP as the current plan is complete. Thank you. Madeline Sorenson SMOKE JUMPER [facility] [phone] documented in this encounter Plan of Treatment Upcoming Encounters Date Type Department Care Team (Latest Contact Info) Description 4 1:00 PM EST Office Visit Orthopaedics [facility] [address] [place] [address] Richard Sexton DO [address] [place] [address] 4 3:20 PM EST Office Visit General Internal Medicine [facility] [address] [facility] [place] [address] Kimberly Figueroa MD 200 [facility] [place] [address] 4 8:00 AM EST Hospital Encounter OR [facility], Operating Room, [facility] - 4th Floor [address] [place] [phone] Anita Ha MD [address] [place] [address] 4 8:00 AM EST - 4 8:32 AM EST Surgery OR [facility], Operating Room, [facility] - 4th Floor [address] [place] [phone] Anita Ha MD [address] [place] [address] ESOPHAGOGASTRODUODENOSCOPY (EGD), FLEXIBLE, TRANSORAL, DIAGNOSTIC 4 10:00 AM EST Telemedicine Dermatology, Katarina Santos [address] [facility] [place] [address] Wb, Pharmacist Dermatology E [facility] [address] [facility] [place] [address] 4 10:00 AM EST Hem/Onc Treatment Hematology/Onc ology Treatment, [place] [address] [place] [address] Catina, Chair 3 Hem Onc [facility] [address] [facility] [place] [address] 5 2:30 PM EDT Office Visit Hematology/Onc ology [facility] [place] [address] [place] [address] Tori Braxton, SAJAN [address] [place], [place] [address] 5 7:00 AM EDT Pharmacy Neurology [address] [place] [phone] Lisa, Pharmacist Neurology 100 [facility] [place] [phone] Scheduled Procedures Name Priority Associated Diagnoses Date/Ti [...] this encounter Medical Devices Implanted Type Area Instruction Assistant Principal Device Identifier Shelf Expiration Date Model / Serial / Lot Port Pwr Mri Isp Profile - [id number] Implanted:Qty : 1 on 08/09/2015 by Terrance [place] MD at OR [facility] Left: Chest CR BARD : PERIPHERAL VASCULAR 05/02/2017 [id number] / / [id number] Description:27 length of cat heter Set Sys Otsc 11-6t 165cm - [id number] Implanted:Qty : 1 on 02/13/2024 by Anita Ha MD at OR [facility] [employer] [id number] 01/03/2025 100. 10 / / [id number] documented as of this encounter Advance Directives [...] Care Agent (per Health Care Power of Sales Compensation Analyst document) Care Teams Annual Giving Director Relationship Specialty Start Date End Date Kimberly Figueroa MD [address] [facility] [place] [address] PCP - General Internal Medicine 02/21/21 documented as of this encounter
--- OUTSIDE RECORDS SUMMARY | 2024-04-13 04:54 | External Medical Summary | Summary of Care ---
Author Name Unknown Organization [facility] Address [address] [place] [address] Phone [phone] Care Team Providers Care Queen Producer Name Role Phone Kimberly Figueroa MD Primary Care Provider + Reason for Visit * Reason Onset Date Comments Order Request 03/06/2024 SCP for Ocrevus due 04/17 Encounter Details Date Type Department Care Team (Late st Contact Info) Description 03/06/2024 Telephone Hematology Oncology [facility] [address] [place] [address] [facility] [address] [place] [address] Order Request (SCP for Ocrevus [...] Active Topiramate 50 MG Oral Tablet (topAMAX)Indication s:MACHINE MOVER demyelination (HCC) TAKE 1 TABLET BY MOUTH [...] Rizatriptan Benzoate 10 MG Oral Tablet (Maxalt)Indications :MACHINE MOVER demyelination (HCC) one at onset. May repeat [...] 150 mgIndications:Depo-Provera contraceptive status 150 mg IM [id number] 02/08/2023 07/27/2025 Acti ve documented as of [...] ICD-10 update of inactive term ROCK RESEARCH OTHER*[id number] 11/17/2007 documented as of this encounter (statuses [...] BMI) 08/01/2009 01/01/2014 Overview: Per Obesity Taxonomy MACHINE MOVER demyelination 07/11/2009 09/17/2018 ADVANCE DIRECTIVE INFORMATION 07/03/2009 [...] encounter Miscellaneous Notes * Telephone Encounter - Frida Ramírez PA-C - 03/06/2024 3:46 [address]T OK to [address] new SCP for this next dose but I won't be able to refill after 08/2024 unless she gets seen. I'll msg scheduling. * Telephone Encounter - Archana Fischer RP - 03/06/2024 2:19 PM EDT Patient has not been seen since August 2022. Labs up to date. Ok to place SCP? * Telephone Encounter - Madeline Sorenson RN - 03/06/2024 11:52 AM EDT Shaunna will be due for Ocrevus on April 17 We will need a new SCP as the current plan is complete. Thank you. Madeline Sorenson SAFETY DIRECTOR [facility] [phone] documented in this encounter Plan of Treatment Upcoming Encounters Date Type Department Care Team (Latest Contact Info) Description 4 1:00 PM EST Office Visit Orthopaedics [facility] [address] [place] [address] Richard Sexton DO [address] [place] [address] 4 3:20 PM EST Office Visit General Internal Medicine [facility] [place] [address] [place] [address] Kimberly Figueroa MD 200 [facility] [place] [address] 4 8:00 AM EST Hospital Encounter OR [facility], Operating Room, [facility] - 4th Floor [address] [place] [phone] Anita Ha MD [address] [place] [address] 4 8:00 AM EST - 4 8:32 AM EST Surgery OR [facility], Operating Room, [facility] - 4th Floor [address] [place] [phone] Anita Ha MD [address] [place] [address] ESOPHAGOGASTRODUODENOSCOPY (EGD), FLEXIBLE, TRANSORAL, DIAGNOSTIC 4 10:00 AM EST Telemedicine Dermatology, Katarina Santos [address] [facility] [place] [address] [place], Pharmacist Dermatology E [facility] [address] [facility] [place] [address] 4 10:00 AM EST Hem/Onc Treatment Hematology/Onc ology Treatment, [place] [address] [place] [address] Catina, Chair 3 Hem Onc [address] [facility] [place] [address] 5 2:30 PM EDT Office Visit Hematology/Onc ology [address] [place] [address] [place] [phone] Tori Braxton, SAJAN [address] [place] [address] 5 7:00 AM EDT Pharmacy Neurology L[address] [place] [address] Lore, Pharmacist Neurology [address] [place], [place] [address] [address] Scheduled Procedures Name Priority Associated Diagnoses Date/Ti [...] this encounter Medical Devices Implanted Type Area Piece Meat Trimmer Device Identifier Shelf Expiration Date Model / Serial / Lot Port Pwr Mri Isp Profile - [id number] Implanted:Qty : 1 on 08/09/2015 by Terrance [place] MD at OR [facility] Left: Chest CR BARD : PERIPHERAL VASCULAR 05/02/2017 [id number] / / [id number] Description:27 length of cat heter Set Sys [facility] 11-6t 165cm - [id number] Implanted:Qty : 1 on 02/13/2024 by Anita Ha MD at OR [facility] [employer] [id number] 01/03/2025 100. 10 / / [id number] documented as of this encounter Advance Directives [...] Agent (per Health Care Power of Senior Editor document) Care Teams Queen Producer Relationship Specialty Start Date End Date Kimberly Figueroa MD 200 [facility] [place] [address] PCP - General Internal Medicine 02/21/21 documented as of this encounter
--- OUTSIDE RECORDS SUMMARY | 2024-04-13 04:55 | External Medical Summary | Summary of Care ---
Author Name Unknown Organization [facility] Address [address] [facility] [place] [address] Phone [phone] Care Team Providers Care Freight Rate Specialist Name Role Phone Kimberly Figueroa MD Primary Care Provider + Reason for Visit * Reason Onset Date Comments Advice 01/31/2024 Education 01/07/2024 Forms Request 01/07/2024 Encounter Details Date Type Department Care Team (Late st Contact Info) Description 01/07/2024 Telephone General Internal Medicine [facility] [place] [address] [facility] [place] [address] Kimberly [facility]eroa MD [facility] [address] Advice; Education; Forms Request Allergies Active Allergy Reactions Criticality Noted Date Comments Cephalexin Hives 01/24/2010 As a small child Clindamycin Hives 12/30/2014 " And bad heartburn" As an adult about age 24 Hydrocodone Medium 12/26/2018 Other reaction(s): Itching Methocarbamol Rash High 06/17/2016 Sulfa Antibiotics Hives 08/05/2006 As a small child Hydrocodone-Acetaminophen Itching 01/01/2014 documented as of this encounter (statuses as of 02/21/2024) Medications Medication Sig Dispensed Refills Start Date [...] months 9 Active Glucose Blood (ONETOUCH VERIO) STRPIndications:H ypoglycemia Test blood sugar once daily as directed. Dx: E16.2 100 Strip 11 9 Active ONETOUCH DELICA LANCETS 33G MISCIndications:H ypoglycemia Test blood sugar once daily as directed. Dx: E16.2 90 Each 3 9 Active Topiramate 50 MG Oral Tablet (topAMAX)Indicati ons:GLOBAL ANALYTICS HEAD demyelination (HCC) TAKE 1 TABLET BY MOUTH TWICE A DAY 180 Tab 1 1 Active medroxyPROGESTERo ne Acetate 150 MG/ML Intramuscular Suspension (Depo-Provera) INJECT [...] Rizatriptan Benzoate 10 MG Oral Tablet (Maxalt)Indicatio ns:GLOBAL ANALYTICS HEAD demyelination (HCC) one at onset. May repeat [...] Emergency room. 2 Each 3 4 Active Fexofenadine-Pseu doephed ER 180-240 MG Tablet Extended Release 24 Hour (Gemma-D Allergy & Congestion) Take 1 Tablet by mouth in the morning. Active Folic Acid 1 MG Oral TabletIndications :H/O gastric bypass,Folic acid deficiency Take 2 Tablets by mouth in the morning. 180 Tablet 1 4 Active Ferrous Sulfate 325 (65 Fe) MG Oral Tablet (Feosol)Indicatio ns:Iron deficiency anemia, unspecified iron deficiency anemia type One pill every other day 30 Tablet 11 2 024 Discontinued(George nair preference/disc ontinuation) Omeprazole 40 MG Oral Capsule Delayed Release (PriLOSEC)Indicat ions:Gastrojejuna l anastomotic stricture Take 1 Capsule (40 mg) by mouth in the morning and 1 Capsule (40 mg) before bedtime. 180 Capsule 3 2 024 Discontinued hydrOXYzine HCl 10 MG Oral Tablet (Atarax)Indicatio ns:Primary insomnia Take one pill every 6 hourly as needed. 90 Tablet 3 4 024 Discontinued(Me dication/Dose Changed) Clobetasol Propionate 0.05 % External Cream (Temovate)Indicat ions:Rash and nonspecific skin eruption Apply topically to affected area 2 times a day. To affected area for up to two weeks. 30 g 3 4 024 Discontinued Fluocinonide 0.05 % External OintmentIndicatio ns:Rash and nonspecific skin eruption Apply to rash behind knees, elbows, trunk twice a day for 2 weeks 60 g 1 4 024 Discontinued(En d of Procedure) Dupixent 300 MG/2ML Subcutaneous Solution Pen-injector (Dupilumab)Indica tions:Rash and nonspecific skin eruption Maintenance Dose: Inject 300mg (1 pen) under the skin every two weeks. 4 mL 2 4 024 Discontinued(Re fill) Sertraline HCl 50 MG Oral Tablet (Zoloft)Indicatio ns:Current moderate episode of major depressive disorder without prior episode (HCC) Take 1 Tablet by mouth in the morning. 30 Tablet 5 4 024 Discontinued(Me dication/Dose Changed) Amoxicillin-Pot Clavulanate 875-125 MG Oral Tablet (Augmentin)Indica tions:Acute non-recurrent maxillary sinusitis Take 1 Tablet by mouth in the morning and 1 Tablet before bedtime. Do all this for 10 days. 20 Tablet 4 Discontinued(Pa tient preference/disc ontinuation) methylPREDNISolon e 4 MG Oral Tablet Therapy Pack (Medrol Dosepack)Indicati ons:Acute non-recurrent maxillary sinusitis follow package directions 21 Tablet 4 024 Discontinued(Pa tient preference/disc ontinuation) Fluconazole 150 MG Oral Tablet (Diflucan)Indicat ions:Yeast infection Take 1 Tablet by mouth once for 1 dose. 1 Tablet 4 024 Discontinued(Pa tient preference/disc ontinuation) Sulfamethoxazole- Trimethoprim 800-160 MG Oral Tablet (Bactrim DS) Take 1 Tablet by mouth in the morning and 1 Tablet before bedtime. Do all this for 14 days. 28 Tablet 4 024 Discontinued(Pa tient preference/disc ontinuation) Hospital, Clinic, or Other Facility Administered Medication Ordered Dose Route Frequency Start Date End Date Status medroxyPROGESTERone acetate (Depo-Provera) inj BRYANNA 150 mgIndications:Depo-Provera contraceptive status 150 mg IM [id number] 02/08/2023 07/27/2025 Acti ve documented as of this encounter (statuses as of 02/21/2024) Active Problems Problem Noted Date Diagnosed Date [...] ICD-10 update of inactive term ROCK RESEARCH OTHER*[id number] 11/17/2007 documented as of this encounter (statuses as of 02/21/2024) Resolved Problems Problem Noted Date Diagnosed Date [...] BMI) 08/01/2009 01/01/2014 Overview: Per Obesity Taxonomy GLOBAL ANALYTICS HEAD demyelination 07/11/2009 09/17/2018 ADVANCE DIRECTIVE INFORMATION 07/03/2009 [...] as of this encounter (statuses as of 02/21/2024) Immunizations Name Administration Dates Next Due COVID-19 [...] deaf or do you have serious difficulty h earing? No 04/18/2015 Are you blind or do you have serious difficulty seeing, even when wearing glasses? No 04/18/2015 Do you have serious difficul ty walking or climbing stairs? (5 years old or older) No 04/18/2015 Do you have difficulty dress ing or bathing? (5 years old or older) No 04/18/2015 Because of a physical, menta l, or emotional condition, do you have difficulty doing errands alone such as visiting a doctor s office or shopping? (15 years old or older) No 04/18/20 15 Cognitive Status Response Date of Assessm ent Because of a physical, menta l, or emotional condition, do you have serious difficulty concentrating, remembering, or making decisions? (5 years old or older) No 04/18/2015 documented as of this encounter Miscellaneous Notes * Telephone Encounter - Scarlet Sandra MED ASSIST - 02/21/2024 2:33 PM EDT Forms faxed back to [facility] 02/19 by Sarai cortés [phone]. Confirmation received. Called Selina at [facility] to confirm that faxed was received - it was. Form placed in [facility] for scanning. * Telephone Encounter - Kimberly Figueroa MD - 02/20/2024 3:37 PM EDT Done. In orange folder. Given back to nursing. Please fax or send. Thanks * Telephone Encounter - Scarlet Sandra MED ASSIST - 02/13/2024 2:46 PM EDT Please see below for reasons regarding why form needs filled. Deadline to be completed is 02/20. Placed in orange folder for review. * Telephone Encounter - Scarlet Sandra MED ASSIST - 02/03/2024 3:16 PM EDT Physician Certification Form located for patient. Returned call to Selina from [employer] to inform her that we have received the forms. Asking that the forms be faxed back to [phone] when completed and also [phone] as an alternate fax number. Form placed in orange folder for review and signature. * Telephone Encounter - Cristina Gutierrez OSA - 01/31/2024 8:59 AM EDT Selina from [employer] calling in again to check status of MA 570 paper work sent to the office [phone] for pt. Per Selina the paperwork is time sensitive and she is requesting a return call from the office regarding whether forms have been completed. Call Back Number: [phone] Please Advise. Thank you! * Telephone Encounter - Kimberly Figueroa MD - 01/29/2024 7:46 AM EDT Not seen unless its in orange folder yet to sign in my office. * Telephone Encounter - Shara Briceno LPN - 01/28/2024 1:[address] Figueroa - have you seen any form? * Telephone Encounter - Susu Peguero OSA - 01/27/2024 9:47 AM EDT Violet Marks MA 570 form is needed by 02/21/2024. Please call Selina and let her know if this was received. * Telephone Encounter - Migdalia Levy TECH - 01/09/2024 2:24 PM EDT Attempted to contact patient/patient outreach representative regarding History and Physical requirement for patient's imaging scheduled with anesthesia on 01/15. Unable to contact patient or outreach representative at this time. Message left to return call to [facility] at [phone] during business hours: Saturday through Saturday 8:00 AM to 4:00 PM, closed weekends and holidays. * Telephone Encounter - Prema Rosales OSA - 01/07/2024 11:35 AM EDT Myriam with [employer] called and said that she will be faxing a form for the patient, and it will be in regards to her home and community based services, so it will be a medical re-certification from ([id number]), and there's a section that the Doctor needs to fill out regarding if the patient is nursing facility eligible or not. If it is not selected that she IS nursing facility eligible then she will lose her services. They wanted to clarify that for the form. Please fax back to [phone] Attention; Myriam documented in this encounter Plan of Treatment Upcoming Encounters Date Type Department Care Team (Late st Contact Info) Description 02/28/2024 11:00 AM EDT Nurse Only Hematology/Oncology [address], [address] [phone] Catina, Chair [address] On[address] [place] [address] 03/16/2024 1:00 PM EST Office Visit Orthopaedics [facility] [address] [facility] [place] [address] Richard Sexton DO [address] [place] [address] 04/14/2024 3:20 PM EST Office Visit General Internal Medicine [facility] [address] [place] [address] Kimberly Figueroa MD [address] [place] [address] [place] [address] 04/15/2024 10:00 AM EST Telemedicine Dermatology, Katarina Santos [address] [place] [address] [place], Pharmacist Dermatology [address] [place] [address] 04/17/2024 10:00 AM EST Hem/Onc Treatment Hematology/Oncology Treatment, [address] [place] [phone] Catina, Chair 3 Hem Onc [address] [place] [address] 08/06/2024 2:30 PM EDT Office Visit Hematology/Oncology [facility] [place] [address] [place] [phone] Tori Braxton CRNP [address] [place] [phone] 08/24/2024 7:00 AM EDT Pharmacy Neurology [address] [place] [phone] Lore, Pharmacist Neurology 100 [facility] [place] [address] Scheduled Procedures Name Priority Associated Diagnoses Date/Ti me ESOPHAGOGASTRODUODENOSCOPY ( EGD), FLEXIBLE, TRANSORAL, DIAGNOSTIC Recall Anastomotic ulcer Health Maintenance Due Date Last Done Comments [...] this encounter Medical Devices Implanted Type Area Tile Finisher Device Identifier Shelf Expiration Date Model / Serial / Lot Port Pwr Mri Isp Profile - [id number] Implanted:Qty : 1 on 08/09/2015 by Terrance [place] MD at [place] [facility] Left: Chest CR BARD : PERIPHERAL VASCULAR 05/02/2017 [id number] / / [id number] Description:27 length of cat heter Set Sys [facility] 11-6t 165cm - [id number] Implanted:Qty : 1 on 02/13/2024 by Anita Ha MD at OR [facility] [employer] [id number] 01/03/2025 100. 10 / / [id number] Explanted Type Area Tile Finisher Device Identifier Shelf Expiration Date Model / Serial / Lot Stent [employer] [id number] - [id number] Implanted:Qty: 1 on 03/19/2023 by Anita Ha MD at OR [facility] Explanted:Qty: 1 on 01/17/2024 by Anita Ha MD at OR [facility] [employer] : ENDOSCOPY [id number] 12/19/2023 [id number] / / [id number] documented as of this encounter Advance Directives [...] Agents on File Name Relationship Healthcare Agent Relationsla p Communication Lashanda Durantman Mother First Alternate Health Care Agent (per Health Care Power of It Support Specialist document) Care Teams Freight Rate Specialist Relationship Specialty Start Date End Date Kimberly Figueroa MD 200 [place] [address] PCP - General Internal Medicine 02/21/21 documented as of this encounter
--- OUTSIDE RECORDS SUMMARY | 2024-04-13 04:55 | External Medical Summary | Summary of Care ---
Author Name Unknown Organization [facility] Address [address] [facility] [place] [address] Phone [phone] Care Team Providers Care Community Affairs Director Name Role Phone Kimberly Figueroa MD Primary Care Provider + Reason for Visit * Reason Onset Date Comments Advice 01/31/2024 Education 01/07/2024 Forms Request 01/07/2024 Encounter Details Date Type Department Care Team (Late st Contact Info) Description 01/07/2024 Telephone General Internal Medicine [facility] [place] [address] [facility] [place] [address] Kimberly [facility]eroa MD [facility] [address] Advice; Education; Forms Request Allergies Active Allergy Reactions Criticality Noted Date Comments Cephalexin Hives 01/24/2010 As a small child Clindamycin Hives 12/30/2014 " And bad heartburn" As an adult about age 24 Hydrocodone Medium 12/26/2018 Other reaction(s): Itching Methocarbamol Rash High 06/17/2016 Sulfa Antibiotics Hives 08/05/2006 As a small child Hydrocodone-Acetaminophen Itching 01/01/2014 documented as of this encounter (statuses as of 02/20/2024) Medications Medication Sig Dispensed Refills Start Date [...] Active Topiramate 50 MG Oral Tablet (topAMAX)Indicati ons:ENDO TECH demyelination (HCC) TAKE 1 TABLET BY MOUTH [...] Rizatriptan Benzoate 10 MG Oral Tablet (Maxalt)Indicatio ns:ENDO TECH demyelination (HCC) one at onset. May repeat [...] sinusitis follow package directions 21 Tablet 4 Discontinued(Pa tient preference/disc ontinuation) Fluconazole 150 MG [...] 150 mgIndications:Depo-Provera contraceptive status 150 mg IM [id number] 02/08/2023 07/27/2025 Acti ve documented as of this encounter (statuses as of 02/20/2024) Active Problems Problem Noted Date Diagnosed Date [...] ICD-10 update of inactive term ROCK RESEARCH OTHER*[id number] 11/17/2007 documented as of this encounter (statuses as of 02/20/2024) Resolved Problems Problem Noted Date Diagnosed Date [...] BMI) 08/01/2009 01/01/2014 Overview: Per Obesity Taxonomy ENDO TECH demyelination 07/11/2009 09/17/2018 ADVANCE DIRECTIVE INFORMATION 07/03/2009 [...] as of this encounter (statuses as of 02/20/2024) Immunizations Name Administration Dates Next Due COVID-19 [...] encounter Miscellaneous Notes * Telephone Encounter - Kimberly Figueroa MD - 02/20/2024 3:37 PM EDT Done. In orange folder. Given back to nursing. Please fax or send. Thanks * Telephone Encounter - Scarlet Sandra, MED ASSIST - 02/13/2024 2:46 PM EDT Please see below for reasons regarding why form needs filled. Deadline to be completed is 02/20. Placed in orange folder for review. * Telephone Encounter - Scarlet Sandra MED ASSIST - 02/03/2024 3:16 PM EDT Physician Certification Form located for patient. Returned call to Selina from [employer] to inform her that we have received the forms. Asking that the forms be faxed back to [phone] when completed and also [phone] as an alternate fax number. Form placed in orange folder for review and signature. * Telephone Encounter - Cristina Gutierrez OSA - 01/31/2024 8:59 AM EDT Selina from [email or web address] calling in again to check status of MA [place] paper work sent to the office 9 for pt. Per Selina the paperwork is time sensitive and she is requesting a return call from the office regarding whether forms have been completed. Call Back Number: [phone] Please Advise. Thank you! * Telephone Encounter [...] 2:24 PM EDT Attempted to contact patient/patient account representative regarding History and Physical requirement for patient's imaging scheduled with anesthesia on 01/15. Unable to contact patient or account representative at this time. Message left to return call to [facility] at [phone] during business hours: Saturday through Saturday 8:00 AM to 4:00 PM, closed weekends and holidays. * Telephone Encounter - Prema Rosales OSA - 01/07/2024 11:35 AM EDT Myriam with [employer] called and said that she will be [...] for the form. Please fax back to [phone] Attention; Myriam documented in this encounter Plan of Treatment Upcoming Encounters Date Type Department Care Team (Late st Contact Info) Description 02/28/2024 11:00 AM EDT Nurse Only Hematology/Oncology Treatment, [place] [address] [place] [phone] Catina, Chair 3 Hem Onc Scene [address] [place] [address] 03/16/2024 1:00 PM EST Office Visit Orthopaedics [facility] [address] [facility] [place] [address] Richard Sexton DO [address] [facility] [place] [address] 04/14/2024 3:20 PM EST Office Visit General Internal Medicine [facility] [address] [facility] [place] [address] Kimberly Figueroa MD [address] [facility] [place] [address] 04/15/2024 10:00 AM EST Telemedicine Dermatology, Katarina Santos [address] [place] [address] [place], Pharmacist Dermatology [address] M[address] [facility] [address] [place] [address] 04/17/2024 10:00 AM EST Hem/Onc Treatment [facility]ematology[facility], [place] [facility] [phone] Catina, Chair 3 Hem Onc [address] [place] [address] 05/26/2024 2:30 PM EST Office Visit Otolaryngology [facility] [address] [facility] [place] [address] Anna Ferro MD [address] [facility] [place] [address] 08/06/2024 2:30 PM EDT Office Visit Hematology/Oncology [facility] [address] [facility] [place] [phone] Tori Braxton CRNP [address] [place] [address] [place] [address] 08/24/2024 7:00 AM EDT Pharmacy Neurology Ramy Magallon, [place] [address] [place] [phone] [place], Pharmacist Neurology [facility] [address] [facility] [place] [address] Scheduled Procedures Name Priority Associated Diagnoses Date/Ti [...] this encounter Medical Devices Implanted Type Area Traveling Sales Representative Device Identifier Shelf Expiration Date Model / Serial / Lot Port Pwr Mri Isp Profile - [id number] Implanted:Qty : 1 on 08/09/2015 by Terrance Curry MD at [facility] Left: Chest CR BARD : PERIPHERAL VASCULAR 05/02/2017 [id number] / / [id number] Description:27 length of cat heter Set Sys [facility] 11-6t 165cm - [id number] Implanted:Qty : 1 on 02/13/2024 by Anita aH MD at OR [facility] [employer] [id number] 01/03/2025 100. 10 / / [id number] Explanted Type Area Traveling Sales Representative Device Identifier Shelf Expiration Date Model / Serial / Lot Stent [employer] [id number] - [id number] Implanted:Qty: 1 on 03/19/2023 by Anita Ha MD at OR [facility] Explanted:Qty: 1 on 01/17/2024 by Anita Ha MD at OR [facility] [id number] : ENDOSCOPY [id number] 12/19/2023 [id number] / / [id number] documented as of this encounter Advance Directives [...] Agents on File Name Relationship Healthcare Agent [facility] p Communication Lashanda Jerome Mother First Alternate Health Care Agent (per Health Care Power of Rim Technician document) Care Teams Community Affairs Director Relationship Specialty Start Date End Date Kimberly Figueroa MD [address] [place] [address], [place] [address] PCP - General Internal Medicine 02/21/21 documented as of this encounter
--- OUTSIDE RECORDS SUMMARY | 2024-04-13 04:55 | External Medical Summary | Summary of Care ---
Author Name Unknown Organization [facility] Address [address] [facility] [place] [address] Phone [phone] Care Team Providers Care Pharmaceutical Laboratory Technician Name Role Phone Kimberly Figueroa MD Primary Care Provider + Encounter Details Date Type Department Care Team (Late st Contact Info) Description 02/13/2024 Telephone OR [facility], Operating Room, [facility] - 4th Floor [address] [facility] [place] [phone] Anita Ha MD [address] [facility] [place] [address] Allergies Active Allergy Reactions Criticality Noted Date Comments Cephalexin Hives 01/24/2010 As a small child Clindamycin Hives 12/30/2014 " And bad heartburn" As an adult about age 24 Hydrocodone Medium 12/26/2018 Other reaction(s): Itching Methocarbamol Rash High 06/17/2016 Sulfa Antibiotics Hives 08/05/2006 As a small child Hydrocodone-Acetaminophen Itching 01/01/2014 documented as of this encounter (statuses as of 02/24/2024) Medications Medication Sig Dispensed Refills Start Date [...] Active Topiramate 50 MG Oral Tablet (topAMAX)Indication s:CAP JEWEL PLATE ASSEMBLER demyelination (HCC) TAKE 1 TABLET BY MOUTH [...] Rizatriptan Benzoate 10 MG Oral Tablet (Maxalt)Indications :CAP JEWEL PLATE ASSEMBLER demyelination (HCC) one at onset. May repeat [...] as of this encounter (statuses as of 02/24/2024) Active Problems Problem Noted Date Diagnosed Date [...] ICD-10 update of inactive term ROCK RESEARCH OTHER*[id number] 11/17/2007 documented as of this encounter (statuses as of 02/24/2024) Resolved Problems Problem Noted Date Diagnosed Date [...] BMI) 08/01/2009 01/01/2014 Overview: Per Obesity Taxonomy CAP JEWEL PLATE ASSEMBLER demyelination 07/11/2009 09/17/2018 ADVANCE DIRECTIVE INFORMATION 07/03/2009 [...] as of this encounter (statuses as of 02/24/2024) Immunizations Name Administration Dates Next Due COVID-19 [...] MD - 02/24/2024 4:04 PM EDT Needs GLH in case she needs a stent or suturing. * Telephone Encounter - Yolanda Montes OSA - 02/13/2024 3:44 PM EDT Can I schedule at [facility] or do you want it at [facility]? * Telephone Encounter - Anita Ha MD - 02/13/2024 12:27 PM EDT Please schedule repeat EGD with me in 2 months. documented in this encounter Plan of Treatment Upcoming Encounters Date Type Department Care Team (Late st Contact Info) Description 03/16/2024 1:00 PM EST Office Visit Orthopaedics [facility] [address] [place] [address] Richard Sexton DO [address] [place] [address] 04/14/2024 3:20 PM EST Office Visit General Internal Medicine [facility] [place] 200 [facility] [address] Kimberly Figueroa MD [address] [facility] [place] [address] 04/15/2024 10:00 AM EST Telemedicine Dermatology, Katarina Santos [address] [facility] [address] [place] [address] [place], Pharmacist Dermatology [address] [facility] [address] [place] [address] 04/17/2024 10:00 AM EST Hem/Onc Treatment Hematology/Oncology Treatment, [place] [address] [place] [phone] Catina, Chair 3 Hem Onc [facility] [address] [facility] [place] [address] 08/06/2024 2:30 PM EDT Office Visit Hematology/Oncology [place] [facility] [place] [address] [place] [phone] Tori Braxtno CRNP [address] [place] [address] 08/24/2024 7:00 AM EDT Pharmacy Neurology [address] [place] [phone] [place], Pharmacist Neurology [facility] [place] [address] Scheduled Procedures Name Priority Associated [...] this encounter Medical Devices Implanted Type Area Gas Processing Plant Operator Device Identifier Shelf Expiration Date Model / Serial / Lot Port Pwr Mri Isp Profile - [id number] Implanted:Qty : 1 on 08/09/2015 by Terrance Curry MD [facility] Left: Chest CR BARD : PERIPHERAL VASCULAR 05/02/2017 [id number] / / [id number] Description:27 length of cat heter Set Sys [employer] 11-6t 165cm - [id number] Implanted:Qty : 1 on 02/13/2024 by Anita Ha MD at OR [facility] [employer] [id number] 01/03/2025 100. 10 / / [id number] documented as of this encounter Advance Directives [...] Agents on File Name Relationship Healthcare Agent [facility] Communication Lashanda Justus Mother First Alternate Health Care Agent (per Health Care Power of Tufting Creeler document) Care Teams Pharmaceutical Laboratory Technician Relationship Specialty Start Date End Date Kimberly Figueroa MD [address] [place] [address] PCP - General Internal Medicine 02/21/21 documented as of this encounter
--- OUTSIDE RECORDS SUMMARY | 2024-04-13 04:55 | External Medical Summary | Summary of Care ---
Author Name Unknown Organization [facility] Address [address] [facility] [place] [address] Phone [phone] Care Team Providers Care Aquatic Habitat Biologist Name Role Phone Kimberly Figueroa MD Primary Care Provider + Reason for Visit * Reason Onset Date Comments Hospital Follow-Up Hospital Follow-Up 01/30/2024 Encounter Details Date Type Department Care Team (Late st Contact Info) Description 01/30/2024 2:20 PM EDT Office Visit General Internal Medicine [address] [place] [address] [place] [address] Kimberly Figueroa MD [address] [facility] [place] [address] Iron deficiency anemia, unspecified iron deficiency anemia type*; Gastrointestinal hemorrhage with hematemesis; Mild persistent asthma without complication; Hospital discharge follow-up Allergies Active Allergy Reactions Criticality Noted Date [...] Active Topiramate 50 MG Oral Tablet (topAMAX)Indicatio ns:QUALITY ASSURANCE SUPERVISOR BODY demyelination (HCC) TAKE 1 TABLET BY MOUTH TWICE A DAY 180 Tab 1 11/14/2020 Active medroxyPROGESTERon e Acetate 150 MG/ML Intramuscular [...] Rizatriptan Benzoate 10 MG Oral Tablet (Maxalt)Indication s:QUALITY ASSURANCE SUPERVISOR BODY demyelination (HCC) one at onset. May repeat [...] Active Diclofenac Sodium 1 % External Gel (Voltaren)Indicati ons:Acute pain of left knee Apply 4 g [...] before bedtime. 84 Capsule 01/24/2024 4 Active Fluocinonide 0.05 % External OintmentIndication s:Rash and nonspecific skin eruption Apply to rash behind knees, elbows, trunk twice a day for 2 weeks 60 g 1 08/26/2023 4 Discontinu ed(End of Procedure) Sertraline HCl 100 MG Oral Tablet (Zoloft)Indication s:Recurrent major depressive disorder, in partial remission (HCC) Take 1 Tablet by mouth in the morning. 30 Tablet 5 01/14/2024 4 Discontinu ed(Refill) Hospital, Clinic, or Other Facility Administered Medication Ordered Dose Route Frequency Start Date End Date Status medroxyPROGESTERone acetate (Depo-Provera) inj BRYANNA 150 mgIndications:Depo-Provera contraceptive status 150 mg IM [id number] 02/08/2023 07/27/2025 Acti ve documented as of [...] ICD-10 update of inactive term ROCK RESEARCH OTHER*[id number] 11/17/2007 documented as of this encounter (statuses [...] BMI) 08/01/2009 01/01/2014 Overview: Per Obesity Taxonomy QUALITY ASSURANCE SUPERVISOR BODY demyelination 07/11/2009 09/17/2018 ADVANCE DIRECTIVE INFORMATION 07/03/2009 [...] No 05/20/2023 Does the household have a [facility] source of income? (Household - for ages [...] Sign Reading Time Taken Comments Blood Pressure 112/66 01/30/2024 2:30 PM EDT Pulse 92 01/30/2024 2:30 PM EDT Temperature 37.1 C (98.8 F) 01/30/2024 2:30 PM ED T Respiratory Rate - - Oxygen Saturation 100% 01/30/2024 2:30 PM EDT Inhaled Oxygen Concentration - - Weight 94.5 kg (208 lb 4.8 oz) 01/30/2024 2:30 P M EDT Height 172 cm (5' 7.72") 01/30/2024 2:30 PM EDT Body Mass Index 31.94 01/30/2024 2:30 PM EDT documented in this encounter Functional Status [...] as of this encounter Progress Notes * Kimberly Figueroa MD - 01/30/2024 2:06 PM EDT Images from the original note were not included. HPI: Shaunna Jerome is a 33 year old female with a history of multiple sclerosis on ocrelizumab, gastric bypass and stent placed for stricture by GI for gastrojejunal anastomosis and stent was removed on 01/16. 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 She had significant nausea, vomiting and was not able to keep anything down. who presents with: No chief complaint on file. Pt is here for the hospital follow up. Chart reviewed from the hospital including admission note, Hand P, consult notes, labs, EKG, imaging and discharge note including discharge meds. Patient states she is feeling better since went back home. As per the review of the chart and discussion with the patient she ended up in Emergency Room for evaluation of hematemesis. Patient had a procedure at [facility] on January 16. She doeshave history of gastric bypass surgery and history of GJ anastomosis. She does have history of stenosis with a stent placement few months back and the stent was removed recently. Patient does have history of alcohol use in the past but not currently. She had no chest pain, shortness of breath, fever, lower abdominal pain, headaches or any other significant symptoms at that time. Her hemoglobin in Emergency Room was 10.3 with hematocrit 30.9, WBC 7.11, platelet count 239, sodium 133, BUN 17, creatinine 0.4. Vitals were overall stable with oxygen 98% on room air and blood pressure was slightly high 145/92 while in Emergency Room. Patient did receive IV fluid, famotidine, pantoprazole, Unasyn, Zofran while in the hospital. She did have chest x-ray, CT abdomen and pelvis while in the hospital. Chest x- ray was negative forany infection or pneumonia. CT abdomen and pelvis showed prior gastric bypass surgery, wall thickening at the gastrogastric anastomosis with adjacent inflammatory stranding. Additionally there is greater than expected amount ofthe complex debris/contents within the excluded stomach. Findings were compatible with an infectious or inflammatory process and raises the possibility of the gastrogastric fistula. Follow up with the Bariatric surgery was recommended. There was no bowel obstruction or pneumoperitoneum. Hepatic steatosis was present an patient did show signs of cholecystectomy. d blood pressure was slightly high 145/92 while in Emergency Room. Admission Diagnosis : Hematemesis and GI bleed Pt has been followed up by therapeutic case manager and specialists. Later on 01/22/2024 patient was admitted in [facility] with GI bleed with melena, hematemesis. HOSPITAL COURSE (focused): 01/22/24 to 01/24/24. Patient was admitted for concern of upper GI bleeding and acute blood loss anemia. GI was consultedstatus post EGD on 01/23/2024 (see reports below for details). Patient was observed in the hospitalovernight without remarkable events. Hemoglobin level did improve from 7.4 to 8.3 on day of discharge. Patient was discharged with PPI twice daily for a total of 6 weeks and then daily dosing thereafter. Her condition was stable and deemed ready for discharge on 01/24/2024. Operations & Procedures: EGD Impression: - Normal esophagus. - Gastric-gastric fistula. - Friable gastric mucosa. - Normal examined jejunum. - No specimens collected. Complications: none significant NO NEW MEDICATIONS WERE PRESCRIBED EXCEPT VITAMIN-D AT THE DISCHARGE. Repeat CBCD done today shows slight improvement in hemoglobin. Result Notes Component Ref Range & Units 13:51 WBC 4.00 - 10.80 K/uL 5.21 RBC 3.85 - 5.15 M/uL 2.62 HGB 12.0 - 15.3 g/dL 8.9 Low HCT 36.0 - 45.2 % 27.1 Low MCV 81.5 - 97.5 fL 103.4 MCH 27.0 - 34.0 pg 34.0 MCHC 32.0 - 36.0 g/dL 32.8 RDW 11.5 - 15.5 % 14.1 PLT 140 - 400 K/uL 412 High MPV 6.6 - 11.1 fL 9.5 Resulting Agency [facility] [place] 56-02 Specimen Collected: 01/30/24 13:51 Last Resulted: 01/30/24 14:13 Pt has repeat upper endoscopy with GI on 02/13/24. Patient Active Problem List Diagnosis Postgastric surgery syndrome ROCK RESEARCH OTHER*[id number] Chronic sinusitis Migraine Mild persistent asthma without [...] (HCC) Other atopic dermatitis Hematemesis with nausea Current Outpatient Medications Medication Sig Dispense Refill [...] Apply to rash areas. 30 g 0 Fluocinonide 0.05 % External Ointment Apply to rash behind knees, elbows, trunk twice a day for 2 weeks 60 g 1 Albuterol Sulfate HFA 108 (90 Base) MCG/ACT [...] mouth in the morning. 180 Tablet 1 Diclofenac Sodium 1 % External Gel (Voltaren) Apply 4 g topically to affected area in the morning and 4 g at noon and 4 g in the evening and 4 g before bedtime. Apply to left knee. 150 g 3 Sertraline HCl 100 MG Oral Tablet (Zoloft) Take 1 Tablet by mouth in the morning. 30 Tablet 5 hydrOXYzine Pamoate 25 MG Oral Capsule (Vistaril) Take 1 Capsule by mouth 3 times a day as needed for Anxiety (Sleep). 30 Capsule 5 Dupixent 300 MG/2ML Subcutaneous Solution Pen-injector (Dupilumab) Maintenance Dose: Inject 300mg (1 pen) under the skin every two weeks. 4 mL 2 Omeprazole 40 MG Oral Capsule Delayed Release (PriLOSEC) Take 1 Capsule by mouth in the morning and1 Capsule before bedtime. 84 Capsule 0 Current Facility-Administered Medications Medication Dose Route Frequency Provider Last Rate Last Admin medroxyPROGESTERone acetate (Depo-Provera) inj BRYANNA 150 mg 150 mg Intramuscular Q90 Days Jenny Kumar MD 150 mg at 11/18/23 1123 The patient's medication list was reviewed and updated as needed. Review of patient's allergies indicates: Allergen Reactions Robaxin [Methocarbamol] Rash Hydrocodone Other reaction(s): Itching Cephalexin Hives As a small child Clindamycin Hives " And bad heartburn" As an adult about age 24 Sulfa Antibiotics Hives As a small child Vicodin [Hydrocodone-Acetaminophen] Itching Past Medical History: Diagnosis Date AC POSTHEMORRHAG ANEMIA 07/07/2008 ACUTE (TRANSVERSE) MYELITIS IN CONDITIONS CLASSIFIED ELSEWHERE 11/06/2008 Asthma, severity to be determined medicated prn Dehydration 01/19/2022 Deviated nasal septum 04/25/2010 DVT of upper extremity (deep vein thrombosis) ([facility]) 04/18/2015 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 Iron deficiency anemia 12/14/2014 Major depressive disorder, recurrent, mild ([facility]) 2017 Migraine 04/13/2011 Morbid Obesity, BMI not known Motion sickness MS (multiple sclerosis) ([facility]) 04/18/2015 Pathologic ice eating 10/26/2014 PONV (postoperative nausea and vomiting) Social History Socioeconomic History Marital status: Single Occupational History Occupation: disability [place] 18yo Tobacco Use Smoking status: Never Smokeless tobacco: Never Tobacco comments: no passive smoke exposures Vaping Use Vaping status: Never Used Substance and Sexual Activity Alcohol use: Yes Alcohol/week: 1.0 - 2.0 standard drink of alcohol Types: 1 - 2 12 oz of beer per week Comment: occassional Drug use: No Sexual activity: Never control/protection: Injection Comment: depo shot. Social History Narrative Lives w/parents. Likes-time w/dog--2 boxer,Herberth Cervantesel Romeo. Has niece--helps watch her. [employer] [place] INFORMATION ENVIRONMENTAL HISTORY: Type of Home: One Story Type of Heating System: Forced air, [place] Air Conditioning: Yes Patient's bedroom and Bedrooms Basement: Unfinished and No evidence mold, mildew Home have cockroaches: No Irritants in the home: None Patient's bedroom location: Floor: first Type of david: Carpeting Beds: Number: 1 Type of beds: Mattress and Futon Pillows: Number: 5 Type of pillows: Synthetic (hypoallergenic, polyester) Bedroom contains: Stuffed animals Pets: 3 dog(s) Lives on a farm: No On disability due to MS; Does not work outside of home. Entered by: Terrance Haley MD 01/03/2012 Social Determinants of Health Financial Resource Strain: Low Risk (05/20/2023) Financial Resource Strain Do you have any trouble paying for your medications, or do you think you might in the future? (Adult - for ages 18 years and over): No Food Insecurity: No Food Insecurity (05/20/2023) Food Insecurity Do you need food for this week? (Adult - for ages 18 years and over): No Transportation Needs: No Transportation Needs (05/20/2023) Transportation Needs Do you have trouble getting a ride to medical visits or work? (Adult - for ages 18 years and over):Never True Social Connections: Socially Integrated (05/20/2023) Social Connections How often do you feel lonely or isolated from those around you? (Adult - for ages 18 years and over): Never Housing Stability: Low Risk (05/20/2023) Housing Stability Do you currently live in a fci or have no steady place to sleep at night? (Adult - for ages 18 years and over): No Do you think you are at risk of becoming homeless? (Adult - for ages 18 years and over): No Family History Problem Relation Name Age of Onset Glaucoma Grandmother (Paternal) Hellen Jerome Hypertension Grandmother (Paternal) Hellen Jerome Arthritis Grandmother (Paternal) Hellen Jerome Diabetes Grandmother (Paternal) Hellen Jerome Thyroid Disorder Grandmother (Paternal) Hellen Jerome Heart Disorder Grandmother (Paternal) Hellen Heart Disorder Grandfather (Paternal) Dinesh Hypertension Grandfather (Paternal) Dinesh Diabetes Grandfather (Paternal) Dinesh Allergies Brother Forrest Asthma Brother Forrest Hypertension Father Dinesh Arthritis Father Dinesh Gastro-intestinal disorder Father Dinesh Obesity Father Dinesh Arthritis Mother Kajal Obesity Mother Kajal Migraines Mother Kajal Arthritis Grandmother (Maternal) Elizabeth All system negative except as per hpi. OBJECTIVE: Blood pressure 112/66, pulse 92, temperature 37.1 C (98.8 F), height 1.72 m (5' 7.72"), weight 94.5 kg (208 lb 4.8 oz), SpO2 100%, not currently . PHYSICAL EXAM: HEENT: PERRLA, EOMI, anicteric sclera, b/l tympanic membrane is pearly white, no erythema, no pharyngeal erythema, no lymphadenopathy, neck supple CVS: RRR, no murmurs, rubs or gallops, s1 s 2normal. RESP: clear to auscultation, no wheezing or crackles ABD: soft, NT/ND EXT: no edema, cyanosis, peripheral pulses palpable bilaterally No large joint swelling, no redness, range of motion normal. Skin normal. Gait normal. Mood stable No focal weakness ASSESSMENT AND PLAN: Iron deficiency anemia, unspecified iron deficiency anemia type (Primary) Hb is improving 8.9. Stable clinically. Keep visit for repeat scop on 02/12/14. Gastrointestinal hemorrhage with hematemesis On omeprazole 20 mg twice daily. Advised pt to avoid caffeine, fried fatty foods, choclates, peppermints, smoking and alcohol. Exercise and weight loss emphasized. Eat dinner 3 hours prior to bed time. Mild persistent asthma without complication Stable. Follow Up: Return in about 6 months (around 07/29/2024) for Return with Physician. | For: Return with Physician Kimberly Figueroa MD documented in this encounter Nursing Notes * Anna Burgos CMA - 01/30/2024 2:28 PM EDT Shaunna Jerome presents for hospital follow up. Medications & HM reviewed. She was admitted to [facility] from 01/21-01/23 for a GI bleed, was vomiting blood. Had upper GI endoscopy completed. She is doing well with omeprazole and has not had any vomiting episodes since. She would like to discuss need for RSV. documented in this encounter Plan of Treatment Upcoming Encounters Date Type Department Care Team (Late st Contact Info) Description 02/28/2024 11:00 AM EDT Nurse Only [facility]ematology[facility], [place] [facility] [phone] Catina, Chair [address] Hem On[address] [place] [address] 03/16/2024 1:00 PM EST Office Visit Orthopaedics [facility] [address] [facility] [place] [address] Richard Sexton, [address] [facility] [place] [address] 04/14/2024 3:20 PM EST Office Visit General Internal Medicine [address] [place] [address] Kimberly Figueroa MD [address] [place] [address] [facility] [place] [address] 04/15/2024 10:00 AM EST Telemedicine Dermatology, Katarina Santos [address] [place] [address] Wb, Pharmacist Dermatology [address] [place] [address] 04/17/2024 10:00 AM EST Hem/Onc Treatment Hematology/Oncology Treatment, [place] [address] [facility] [phone] Catina, Chair 3 Hem Onc [address] [place] [address] 05/26/2024 2:30 PM EST Office Visit Otolaryngology [facility] [address] [place] [address] Anna Ferro MD [address] [place] [address] 08/06/2024 2:30 PM EDT Office Visit Hematology/Oncology [facility] [address] [facility] [place] [phone] Tori Braxton CRNP [address] [place] [address] 08/24/2024 7:00 AM EDT Pharmacy Neurology [facility] [place] [address] [place] [phone] Lore, Pharmacist Neurology 100 [facility] [address] Scheduled Orders Name Type Priority Associated Diagnoses Orde r Schedule CBC WITH WBC DIFFERENTIAL Lab Routine Iron deficiency anemia, unspecified iron deficiency anemia type Expected: 01/30/2024 (Approximate), Expires: 01/29/2025 Scheduled Procedures Name Priority Associated Diagnoses Date/Ti [...] this encounter Medical Devices Implanted Type Area Supervisory Historian Device Identifier Shelf Expiration Date Model / Serial / Lot Port Pwr Mri Isp Profile - [id number] Implanted:Qty: 1 on 08/09/2015 by Terrance Curry MD at [facility] Left: Chest CR BARD : PERIPHERAL VASCULAR 05/02/2017 [id number] / / [id number] Description:27 length of cat heter documented as of this encounter Visit Diagnoses Diagnosis Iron deficiency anemia, unspecified iron deficiency anemia type- Primary Gastrointestinal hemorrhage with hematemesis Mild persistent asthma without complication Unspecified asthma Hospital discharge follow-up Other follow-up examination documented in this encounter Advance Directives * [...] Care Agent (per Health Care Power of Shorthand Reporter document) Care Teams Aquatic Habitat Biologist Relationship Specialty Start Date End Date Kimberly Figueroa MD [address] [place] [address] PCP - General Internal Medicine 02/21/21 documented as of this encounter
--- OUTSIDE RECORDS SUMMARY | 2024-04-13 04:55 | External Medical Summary | Summary of Care ---
Author Name Unknown Organization [facility] Address [address] [facility] [place] [address] Phone [phone] Care Team Providers Care Communications Electrician Supervisor Name Role Phone Kimberly Figueroa MD Primary Care Provider + Reason for Visit * Reason Comments Medication Administration Depo admin Encounter Details Date Type Department Care Team (Late st Contact Info) Description 02/19/2024 11:30 AM EDT Nurse Only Ancillary [facility] [address] [place] [address] Nurse, Int Med [facility] [address] Medication Administration (Depo admin) Allergies Active Allergy Reactions Criticality Noted Date Comments Cephalexin Hives 01/24/2010 As a small child Clindamycin Hives 12/30/2014 " And bad heartburn" As an adult about age 24 Hydrocodone Medium 12/26/2018 Other reaction(s): Itching Methocarbamol Rash High 06/17/2016 Sulfa Antibiotics Hives 08/05/2006 As a small child Hydrocodone-Acetaminophen Itching 01/01/2014 documented as of this encounter (statuses as of 02/19/2024) Medications Medication Sig Dispensed Refills Start Date [...] Active Topiramate 50 MG Oral Tablet (topAMAX)Indication s:STREET COMMISSIONER demyelination (HCC) TAKE 1 TABLET BY MOUTH [...] Rizatriptan Benzoate 10 MG Oral Tablet (Maxalt)Indications :STREET COMMISSIONER demyelination (HCC) one at onset. May repeat [...] before bedtime. 1800 mL 02/18/2024 5 Active Hospital, Clinic, or Other Facility Administered Medication Ordered Dose Route Frequency Start Date End Date Status medroxyPROGESTERone acetate (Depo-Provera) inj BRYANNA 150 mgIndications:Depo-Provera contraceptive status 150 mg IM [id number] 02/08/2023 07/27/2025 Acti ve documented as of this encounter (statuses as of 02/19/2024) Active Problems Problem Noted Date Diagnosed Date [...] ICD-10 update of inactive term ROCK RESEARCH OTHER*[id number] 11/17/2007 documented as of this encounter (statuses as of 02/19/2024) Resolved Problems Problem Noted Date Diagnosed Date [...] BMI) 08/01/2009 01/01/2014 Overview: Per Obesity Taxonomy STREET COMMISSIONER demyelination 07/11/2009 09/17/2018 ADVANCE DIRECTIVE INFORMATION 07/03/2009 [...] as of this encounter (statuses as of 02/19/2024) Immunizations Name Administration Dates Next Due COVID-19 [...] as of this encounter Progress Notes * Suhas Liu CMA - 02/19/2024 11:43 AM EDT The patient has been properly identified by confirmation of name and date of . Patient here for depo-provera shot with own medication and within time frame. Patient given dates for 3 month return,and made aware to make next appt. documented in this encounter Plan of Treatment Upcoming Encounters Date Type Department Care Team (Late st Contact Info) Description 02/28/2024 11:00 AM EDT Nurse Only Hematology/Oncology Treatment, [address] [place] [phone] Catina, Chair 3 Hem Onc [address] [place] [address] 03/16/2024 1:00 PM EST Office Visit Orthopaedics [facility] [address] [place] [address] Richard Sexton DO [address] [facility] [place] [address] 04/14/2024 3:20 PM EST Office Visit General Internal Medicine [address] [place] [address] Kimberly Figueroa MD [address] [place] [address] [facility] [place] [address] 04/15/2024 10:00 AM EST Telemedicine Dermatology, Katarina Santos [address] [facility] [place] [address] Wb, Pharmacist Dermatology [address] [place] [address] 04/17/2024 10:00 AM EST Hem/Onc Treatment Hematology/Oncology Treatment, [place] [facility] [phone] Catina, Chair 3 Hem Onc [address] [place] [address] 05/26/2024 2:30 PM EST Office Visit Otolaryngology [facility] [address] [place] [address] Anna Ferro MD [address] [place] [address] 08/06/2024 2:30 PM EDT Office Visit Hematology/Oncology [facility] 200 [place] [phone] Tori Braxton CRNP [address] [place] [address] 08/24/2024 7:00 AM EDT Pharmacy Neurology [facility] [address] [place] [phone] Lore, Pharmacist Neurology 100 [facility] [address] Scheduled Procedures Name Priority Associated Diagnoses [...] this encounter Medical Devices Implanted Type Area Envelope Sealing Machine Operator Device Identifier Shelf Expiration Date Model / Serial / Lot Port Pwr Mri Isp Profile - [id number] Implanted:Qty : 1 on 08/09/2015 by Terrance Curry MD at [facility] Left: Chest CR BARD : PERIPHERAL VASCULAR 05/02/2017 [id number] / / [id number] Description:27 length of cat heter Set Sys [facility] 11-6t 165cm - [id number] Implanted:Qty : 1 on 02/13/2024 by Anita Ha MD at OR [facility] [id number] 01/03/2025 100. 10 / / [id number] documented as of this encounter Administered Medications Active Administered Medications - up to 3 most recent administrations Medication Order MAR Action Action Date Dose Rate Site medroxyPROGESTERone acetate (Depo-Provera) inj BRYANNA 150 mg 150 mg, Intramuscular, [id number], 10 doses, First dose on Sat02/08/23 at 1600, Last dose on Sat04/28/25 at 1600 Given 02/19/2024 11:39 AM EDT 150 mg Dorsogluteal Left Given 11/18/2023 11:23 AM EDT 150 mg D orsogluteal Left Given 08/19/2023 10:09 AM EDT 150 mg D orsogluteal Right documented in this encounter Advance Directives * [...] on File Name Relationship Healthcare Agent [facility]hi p Communication Lashanda Justus Mother First Alternate Health Care Agent (per Health Care Power of Park Maintenance Technician document) Care Teams Communications Electrician Supervisor Relationship Specialty Start Date End Date Kimberly Figueroa MD 200 [place] [address] PCP - General Internal Medicine 02/21/21 documented as of this encounter
--- OUTSIDE RECORDS SUMMARY | 2024-04-13 04:55 | External Medical Summary | Summary of Care ---
Author Name Unknown Organization [facility] Address [address] [facility] [place] [address] Phone [phone] Care Team Providers Care Electron Beam Machine Welder Setter Name Role Phone Kimberly Figueroa MD Primary Care Provider + Encounter Details Date Type Department Care Team (Late st Contact Info) Description 02/13/2024 Telephone OR [facility], Operating Room, [facility] - 4th Floor [address] [facility] [place] [phone] Anita Ha MD [address] [facility] [place] [address] Allergies Active Allergy Reactions Criticality Noted Date [...] Active Topiramate 50 MG Oral Tablet (topAMAX)Indication s:LOCKMAKER demyelination (HCC) TAKE 1 TABLET BY MOUTH [...] Rizatriptan Benzoate 10 MG Oral Tablet (Maxalt)Indications :LOCKMAKER demyelination (HCC) one at onset. May repeat [...] ICD-10 update of inactive term ROCK RESEARCH OTHER*[id number] 11/17/2007 documented as of this encounter (statuses [...] BMI) 08/01/2009 01/01/2014 Overview: Per Obesity Taxonomy LOCKMAKER demyelination 07/11/2009 09/17/2018 ADVANCE DIRECTIVE INFORMATION 07/03/2009 [...] encounter Miscellaneous Notes * Telephone Encounter - Anita Ha MD - 02/24/2024 4:04 PM EDT Needs GL in case she needs a stent or suturing. * Telephone Encounter - Yolanda Montes OSA - 02/13/2024 3:44 PM EDT Can I schedule at [facility] or do you want it at [facility]? * Telephone Encounter - Anita Ha MD - 02/13/2024 12:27 PM EDT Please schedule repeat EGD with me in 2 months. documented in this encounter Plan of Treatment Upcoming Encounters Date Type Department Care Team (Late st Contact Info) Description 03/16/2024 1:00 PM EST Office Visit Orthopaedics [facility] [address] [place] [address] Richard Sexton, [address] [place] [address] 04/14/2024 3:20 PM EST Office Visit General Internal Medicine [address] [place] [address] Kimberly Figueroa MD [address] [facility] [place] [address] 04/15/2024 10:00 AM EST Telemedicine Dermatology, Katarina Santos [address] [place] [address] Wb, Pharmacist Dermatology [address] [place] [address] 04/17/2024 10:00 AM EST Hem/Onc Treatment Hematology/Oncology Treatment, [place] [address] [facility] [place] [phone] Catina, Chair 3 Hem Onc [address] [place] [address] 08/06/2024 2:30 PM EDT Office Visit Hematology/Oncology [facility] [address] [place] [phone] Tori Braxton CRNP [address] [facility] [address] 08/24/2024 7:00 AM EDT Pharmacy Neurology [address] [place] [phone] Lore, Pharmacist Neurology [address] [facility] [place] [address] Scheduled Procedures Name [...] this encounter Medical Devices Implanted Type Area Research Home Economist Device Identifier Shelf Expiration Date Model / Serial / Lot Port Pwr Mri Isp Profile - [id number] Implanted:Qty : 1 on 08/09/2015 by Terrance Curry [facility] Left: Chest CR BARD : PERIPHERAL VASCULAR 05/02/2017 [id number] / / [id number] Description:27 length of cat heter Set Sys [facility] 11-6t 165cm - [id number] Implanted:Qty : 1 on 02/13/2024 by Anita Ha MD at OR [facility] [employer] [id number] 01/03/2025 100. 10 / / [id number] documented as of this encounter Advance Directives [...] Care Agent (per Health Care Power of Web Operations Manager document) Care Teams Electron Beam Machine Welder Setter Relationship Specialty Start Date End Date Kimberly Figueroa MD [address] [place] [address] PCP - General Internal Medicine 02/21/21 documented as of this encounter
--- OUTSIDE RECORDS SUMMARY | 2024-04-13 04:55 | External Medical Summary | Summary of Care ---
Author Name Unknown Organization [facility] Address [address] [facility] [place] [address] Phone [phone] Care Team Providers Care Animal Skinner Name Role Phone Kimberly Figueroa MD Primary Care Provider + Encounter Details Date Type Department Care Team (Late st Contact Info) Description 02/13/2024 Telephone OR [facility], Operating Room, [facility] - 4th Floor [address] [facility] [place] [phone] Anita Ha MD [address] [facility] [place] [address] Allergies Active Allergy Reactions Criticality Noted Date [...] Active Topiramate 50 MG Oral Tablet (topAMAX)Indication s:MANAGER ASSET demyelination (HCC) TAKE 1 TABLET BY MOUTH [...] Rizatriptan Benzoate 10 MG Oral Tablet (Maxalt)Indications :MANAGER ASSET demyelination (HCC) one at onset. May repeat [...] ICD-10 update of inactive term ROCK RESEARCH OTHER*[id number] 11/17/2007 documented as of this encounter (statuses [...] BMI) 08/01/2009 01/01/2014 Overview: Per Obesity Taxonomy MANAGER ASSET demyelination 07/11/2009 09/17/2018 ADVANCE DIRECTIVE INFORMATION 07/03/2009 [...] encounter Miscellaneous Notes * Telephone Encounter - Yolanda Montes OSA - 02/13/2024 3:44 PM EDT Can I schedule at [facility] or do you want it at [facility]? * Telephone Encounter - Anita Ha MD - 02/13/2024 12:27 PM EDT Please schedule repeat EGD with me in 2 months. documented in this encounter Plan of Treatment Upcoming Encounters Date Type Department Care Team (Late st Contact Info) Description 03/16/2024 1:00 PM EST Office Visit Orthopaedics [facility] [address] [place] [address] Richard Sexton, [address] [place] [address] 04/14/2024 3:20 PM EST Office Visit General Internal Medicine [facility] [address] [facility] [place] [address] Kimberly Figueroa MD [address] [facility] [place] [address] 04/15/2024 10:00 AM EST Telemedicine Dermatology, Katarina Santos [address] [place] [address] W[place], Pharmacist Dermatology [address] [facility] [place] [address] 04/17/2024 10:00 AM EST Hem/Onc Treatment Hematology/Oncology Treatment, [place] [address] [facility] [address] [place] [phone] Catina, Chair 3 Hem Onc [facility] [address] [facility] [place] [address] 08/06/2024 2:30 PM EDT Office Visit Hematology/Oncology [facility] [place] [address] [facility] [place] [phone] Tori Braxton CRNP [address] [place] [address] 08/24/2024 7:00 AM EDT Pharmacy Neurology [address] [place] [phone] Lore, Pharmacist Neurology [address] [place] [address] Scheduled Procedures Name Priority Associated Diagnoses Date/Ti [...] this encounter Medical Devices Implanted Type Area Barrel Straightener Device Identifier Shelf Expiration Date Model / Serial / Lot Port Pwr Mri Isp Profile - [id number] Implanted:Qty : 1 on 08/09/2015 by Terrance Curry MD at [place] [facility] Left: Chest CR BARD : PERIPHERAL VASCULAR 05/02/2017 [id number] / / [id number] Description:27 length of cat heter Set Sys Ots 11-6t 165cm - [id number] Implanted:Qty : 1 on 02/13/2024 by Anita Ha MD at OR [facility] [employer] [id number] 01/03/2025 100. 10 / / [id number] documented as of this encounter Advance Directives [...] Care Agent (per Health Care Power of Appeals Rn document) Care Teams Animal Skinner Relationship Specialty Start Date End Date Kimberly Figueroa MD [address] [place] [address] PCP - General Internal Medicine 02/21/21 documented as of this encounter
--- OUTSIDE RECORDS SUMMARY | 2024-04-13 04:56 | External Medical Summary | Summary of Care ---
Author Name Unknown Organization [facility] Address [address] [address] Phone [phone] Care Team Providers Care Vegetable Specker Name Role Phone Kimberly Figueroa MD Primary Care Provider + Reason for Visit * Reason Comments Follow Up HD Encounter Details Date Type Department Care Team (Late st Contact Info) Description 02/06/2024 2:30 PM EDT Office Visit Hematology/Oncology [facility] [address] [place] [phone] Tori Braxton CRNP [address] [facility] [place] [address] Iron deficiency anemia, unspecified iron deficiency anemia type*; B12 deficiency; Folic acid deficiency; H/O gastric bypass; Gastrointestinal hemorrhage with melena Allergies Active Allergy Reactions Criticality Noted Date Comments Cephalexin Hives 01/24/2010 As a small child Clindamycin Hives 12/30/2014 " And bad heartburn" As an adult about age 24 Hydrocodone Medium 12/26/2018 Other reaction(s): Itching Methocarbamol Rash High 06/17/2016 Sulfa Antibiotics Hives 08/05/2006 As a small child Hydrocodone-Acetaminophen Itching 01/01/2014 documented as of this encounter (statuses as of 02/09/2024) Medications Medication Sig Dispensed Refills Start Date [...] Active Topiramate 50 MG Oral Tablet (topAMAX)Indication s:PELLET PREPARATION OPERATOR demyelination (HCC) TAKE 1 TABLET BY [...] Rizatriptan Benzoate 10 MG Oral Tablet (Maxalt)Indications :PELLET PREPARATION OPERATOR demyelination (HCC) one at onset. May [...] left knee. 150 g 3 01/14/2024 Active Sertraline HCl 100 MG Oral Tablet (Zoloft)Indications :Recurrent major depressive disorder, in partial remission (HCC) Take 1 Tablet by mouth in the morning. 30 Tablet 5 01/14/2024 Active hydrOXYzine Pamoate 25 MG Oral [...] Capsule before bedtime. 84 Capsule 01/24/2024 Active Hospital, Clinic, or Other Facility Administered Medication Ordered Dose Route Frequency Start Date End Date Status medroxyPROGESTERone acetate (Depo-Provera) inj BRYANNA 150 mgIndications:Depo-Provera contraceptive status 150 mg IM [id number] 02/08/2023 07/27/2025 Acti ve documented as of this encounter (statuses as of 02/09/2024) Active Problems Problem Noted Date Diagnosed Date [...] ICD-10 update of inactive term ROCK RESEARCH OTHER*[id number] 11/17/2007 documented as of this encounter (statuses as of 02/09/2024) Resolved Problems Problem Noted Date Diagnosed Date [...] BMI) 08/01/2009 01/01/2014 Overview: Per Obesity Taxonomy PELLET PREPARATION OPERATOR demyelination 07/11/2009 09/17/2018 ADVANCE DIRECTIVE INFORMATION [...] as of this encounter (statuses as of 02/09/2024) Immunizations Name Administration Dates Next Due COVID-19 [...] Date Smoking Tobacco: Never Smokeless Tobacco: Never Tobacco Cessation:Counseling Given: Not Answered Comments:no passive smoke exposures Alcohol Use Standard Drinks/Week Comments Yes 1 [...] No 05/20/2023 Does the household have a [facility] facility[facility] source of income? (Household - for ages [...] Sign Reading Time Taken Comments Blood Pressure 124/86 02/06/2024 2:30 PM EDT Pulse 90 02/06/2024 2:30 PM EDT Temperature 36.9 C (98.5 F) 02/06/2024 2:30 PM ED T Respiratory Rate - - Oxygen Saturation 98% 02/06/2024 2:30 PM EDT Inhaled Oxygen Concentration - - Weight 94.6 kg (208 lb 9.6 oz) 02/06/2024 2:30 P M EDT Height - - Body Mass Index 31.98 02/06/2024 11:20 AM EDT documented in this encounter Functional [...] as of this encounter Progress Notes * Tori Braxton, SAJAN - 02/06/2024 2:30 PM EDT Hematology/Oncology Outpatient Clinic note Fausto Dominique [address] [facility] [place] [address] Name: Shaunna Jerome Date: 02/06/2024 CHIEF COMPLAINT: Shaunna Jerome is a 33 year old female here today for f/u visit today. Patient of Dr. Gomez Figueroa. From Patient chart confirmed with patient. 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 In February,, her Ferritin level was around 5.9, also has Vitamin B12 deficiency, presently sheis on parenteral Vitamin B12 every monthly, earlier intravenous iron therapy was ordered but she has poor venous access, could not get port placement for several months, she had acute DVT involving the right upper extremity (April,) when she underwent port placement which was unsuccessful at that time, she received oral anticoagulant treatment. Nowadays she is not on any anticoagulant treatment. Now she has port in the left internal jugular vein but also started her on oral iron replacement therapy , Hemoglobin level and iron store does has improved. She did not require any intravenous iron treatment in the past. She was seen at [facility] ER in December, for dizziness. -CT scan of the chest done on 12/18/2015 at [facility] for evaluation of dyspnea and dizziness showed no evidence of pulmonary embolism, hepatomegaly and hepatic steatosis noted. Left internal jugular vein port noted. Prominent mediastinal lymph nodes appears to be reactive in nature. -CT angiogram of the neck--> unremarkable. (12/18/2015). Presently she is on Ocrevus infusion every 6 monthly since November 2017. Port has been used for this infusion. EGD 11/09/22: - Non-severe esophagitis with no bleeding. - Gastric bypass with a normal-sized pouch. Gastrojejunal anastomosis characterized by ulceration and severe stenosis. - No specimens collected. Recommendations: - Patient should have small bowl imaging to further define the anatomy - Absolutely no NSAIDS - Twice daily high dose PPI - No Smoking - Repeat study aftr small bowel imaging has been obtained and inflammation has improved for possible dilation. May need surgical revision. - Discharge patient to home. Patient to be scheduled for SBFT for further evaluation. Interval History: HOSPITAL COURSE (focused): 01/22/24 to 01/24/24. Patient [...] - No specimens collected. Complications: none significant HISTORY OF PRESENT ILLNESS: Shaunna Jerome is a 33 year old female with a history as outlined above. Currently here for f/u visit today. Patient feeling well today. No complaints or concerns verbalized. Marcie continues to work well for her to control her MS. Functional status is good. Is on Omeprazole 40 mg BID. Feeling improved but is still not able to tolerate certain foods. Weight is stable. Scheduled for repeat EGD on the . Confirms taking folic acid 2 mg daily. Is not currently taking an oral iron supplement. 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 PONV (postoperative nausea and vomiting) Past Surgical History: Procedure Laterality Date ANESTHESIA FOR CAT OR MRI SCAN N/A 06/21/2022 ANESTHESIA FOR NON-INVASIVE IMAGING (MRI OR CT) performed by In And Out Surgery [facility] at OR [facility] ANESTHESIA FOR CAT OR MRI SCAN N/A 01/16/2024 ANESTHESIA FOR NON-INVASIVE IMAGING (MRI OR CT) performed by [facility], In And Out Surgery at [facility] EGD, FLEXIBLE, DIAGNOSTIC 07/16/2011 UPPER GI ENDOSCOPY DIAGNOSTIC performed by GAURAV AGUILERA III at [facility] EGD, FLEXIBLE, DIAGNOSTIC 08/09/2011 UPPER GI ENDOSCOPY DIAGNOSTIC performed by GAURAV AGUILERA III at [facility] EGD, FLEXIBLE, DIAGNOSTIC 12/03/2011 UPPER GI ENDOSCOPY DIAGNOSTIC performed by Gaurav Aguilera III, MD at [facility] EGD, FLEXIBLE, DIAGNOSTIC 06/03/2013 ESOPHAGOGASTRODUODENOSCOPY (EGD), FLEXIBLE, TRANSORAL, DIAGNOSTIC performed by Gaurav Aguilera III, MD at ENDOSCOPY [facility] EGD, FLEXIBLE, DIAGNOSTIC 08/06/2013 ESOPHAGOGASTRODUODENOSCOPY (EGD), FLEXIBLE, TRANSORAL, DIAGNOSTIC performed by Caesar De La Torre [facility] EGD, FLEXIBLE, DIAGNOSTIC 09/22/2013 ESOPHAGOGASTRODUODENOSCOPY (EGD), FLEXIBLE, TRANSORAL, DIAGNOSTIC performed by Gaurav Aguilera III, MD at [facility] EGD, FLEXIBLE, DIAGNOSTIC N/A 11/10/2014 ESOPHAGOGASTRODUODENOSCOPY (EGD), FLEXIBLE, TRANSORAL, DIAGNOSTIC performed by Gaurav Aguilera MD at ENDOSCOPY [facility] EGD, FLEXIBLE, DIAGNOSTIC 06/26/2019 normal / ESOPHAGOGASTRODUODENOSCOPY (EGD), FLEXIBLE, TRANSORAL, DIAGNOSTIC performed by Carmelo Brooks MD at ENDOSCOPY [facility] EGD, FLEXIBLE, DIAGNOSTIC 04/07/2020 normal / ESOPHAGOGASTRODUODENOSCOPY (EGD), FLEXIBLE, TRANSORAL, DIAGNOSTIC performed by Carmelo Brooks MD at ENDOSCOPY [facility] EGD, FLEXIBLE, DIAGNOSTIC 12/22/2021 gastrojejunal anastomosis ulcer w/ active bleeding / INPT [facility] EGD, FLEXIBLE, DIAGNOSTIC N/A 03/19/2023 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/repeat 3 months/ESOPHAGOGASTRODUODENOSCOPY (EGD), FLEXIBLE, TRANSORAL, DIAGNOSTIC performed by Anita Ha MD at OR [facility] EGD, FLEXIBLE, DIAGNOSTIC 11/09/2022 Non-severe esophagitis, severe stenosis and ulceration - gastrojejunal anastomosis / [facility] EGD, FLEXIBLE, DIAGNOSTIC N/A 02/07/2023 mingo-en-Y gastrojejunostomy with gastrojejunal anastomosis, severe stenosis/schedule Axios stent/EGD/LA EGD, FLEXIBLE, DIAGNOSTIC N/A 01/17/2024 ESOPHAGOGASTRODUODENOSCOPY (EGD), FLEXIBLE, TRANSORAL, DIAGNOSTIC performed by Anita Ha MD at OR [facility] EGD, FLEXIBLE, DIAGNOSTIC N/A 01/23/2024 ESOPHAGOGASTRODUODENOSCOPY (EGD), FLEXIBLE, TRANSORAL, DIAGNOSTIC performed by Amado Alvarez DO at ENDOSCOPY [facility] EGD, FLEXIBLE, TRANSENDOSCOPIC DILATION <30MM N/A 11/10/2014 ESOPHAGOGASTRODUODENOSCOPY (EGD), FLEXIBLE, TRANSORAL, BALLOON DILATION LESS THAN 30MM performed byGaurav Aguilera MD at ENDOSCOPY [facility] GASTRIC REVISION FOR OBESITY 05/31/2008 GASTRIC RESTRICTIVE PROCEDURE WITH BYPASS performed by GAURAV AGUILERA III at OR [facility] INFORMATION dental INFORMATION 10/06/2009 [facility] placement of A-port central venous access catheter tunneled with port via left subclavian apporach 10/06/20090 [facility] ACC DEV;5 YRS/OLDER Right 04/12/2015 INSERT TUNNELED CENTRAL VENOUS ACCESS WITH SUBQ PORT performed by Fabio Dobbins MD at OR [facility] ACC DEV;5 YRS/OLDER N/A 08/09/2015 INSERT TUNNELED CENTRAL VENOUS ACCESS WITH SUBQ PORT performed by Terrance Curry MD at OR [facility] LAPAROSCOPY; CHOLECYSTECTOMY 02/17/2013 02/17/2013 at [facility], Laparoscopic cholecystectomy Dr. Crowell with bakery assistant Dino Theodore PA-C MAXIL SINUS ENDOSCOPY W/TISS REMOVE Bilateral 12/26/2018 NASAL SINUS ENDOSCOPY MAXILLA ANTROSTOMY REMOVE TISSUE performed by Anna Ferro MD at [facility] MISCELLANEOUS ORDER ([facility] ONLY) Aport NASAL ENDOSCOPY,TOTAL ETHMOIDECTOMY Bilateral 12/26/2018 NASAL SINUS ENDOSCOPY WITH ETHMOIDECTOMY TOTAL performed by Anna Ferro MD at [facility] NASAL/SINUS ENDOSCOPY, SURGICAL Right 12/26/2018 NASAL SINUS ENDOSCOPY WITH EVA BULLOSA RESECTION performed by Anna Ferro MD at [facility] NASAL/SINUS ENDOSCOPY, SURGICAL Bilateral 12/26/2018 NASAL SINUS ENDOSCOPY FRONTAL SINUS EXPLORATION REMOVE TISSUE performed by Anna Ferro MD at [facility] REMOVAL OF TONSILS, UNDER AGE 12 REPAIR OF NASAL SEPTUM N/A 12/26/2018 SEPTOPLASTY performed by Anna Ferro MD at [facility] STEREOTACTIC CRANIAL EXTRADURAL NAVIGATION N/A 12/26/2018 STEREOTACTIC CRANIAL EXTRADURAL NAVIGATION performed by Anna Ferro MD at [facility] THERAPEUTIC FRACTURE OF NOSE Bilateral 12/26/2018 FRACTURE OF NASAL TURBINATES THERAPEUTIC performed by Anna Ferro MD at OR [facility] WEDGE BIOPSY OF LIVER 05/31/2008 BIOPSY OF LIVER WEDGE performed by GAURAV AGUILERA III at OR [facility] Social History Socioeconomic History Marital status: Single Spouse name: Not on file Number of children: Not on file Years of education: Not on file Highest education level: Not on file Occupational History Occupation: disability [place] 18yo Tobacco [...] activity: Never control/protection: Injection Comment: depo shot. Other Topics Concern Not on file Social History Narrative Lives w/parents. Likes-time w/dog--2 boxer,2Jack Marcos, Felize. Has niece--helps watch her. [facility] [place] INFORMATION ENVIRONMENTAL HISTORY: Type of Home: One Story Type of Heating System: Forced air, [place] and [place] Air Conditioning: Yes Patient's bedroom and Bedrooms [...] for ages 18 years and over): No Does your family have trouble paying for medicine? (Household - for ages 0-17 years): Not on file Food Insecurity: No Food Insecurity (05/20/2023) Food Insecurity Do you need food for this week? (Adult - for ages 18 years and over): No Are you able to get enough food for your family? (Household - for ages 0-17 years): Not on file Does your family need food this week? (Household - for ages 0-17 years): Not on file Do you always have enough food for your family? (Household - for ages 0-17 years): Not on file Transportation Needs: No Transportation Needs (05/20/2023) Transportation Needs Do you have trouble getting a ride to medical visits or work? (Adult - for ages 18 years and over):Never True Does your family have a hard time getting a ride to doctors visits? (Household - for ages 0-17 years): Not on file Has lack of transportation kept you from medical appointments, meetings, work, or from getting things needed for daily living? Check all that apply. (Adult - for ages 18 years and over): Not on file Do you (or your family) have trouble finding or paying for a ride (transportation)? (Household - for ages 0-17 years): Not on file Social Connections: Socially Integrated (05/20/2023) Social Connections How often do you feel lonely or isolated from those around you? (Adult - for ages 18 years and over): Never Housing Stability: Low Risk (05/20/2023) Housing Stability Do you currently live in a senior living or have no steady place to sleep at night? (Adult - for ages 18 years and over): No Do you think you are at risk of becoming homeless? (Adult - for ages 18 years and over): No Does your family worry about paying for your home or becoming homeless? (Household - for ages 0-17 years): Not on file Are you homeless or worried that you might be in the future? (Adult - for ages 18 years and over): Not on file Are you (or your family) homeless or worried that you might be in the future? (Household - for ages0-17 years): Not on file Review of patient's allergies indicates: Allergen Reactions [...] Kumar MD 150 mg at 11/18/23 1123 REVIEW OF SYSTEMS: See HPI - otherwise negative OBJECTIVE: Filed Vitals: 02/06/24 1430 BP: 124/86 Pulse: 90 Temp: 36.9 C (98.5 F) TempSrc: Tympanic SpO2: 98% Weight: 94.6 kg (208 lb 9.6 oz) Wt Readings from Last 5 Encounters: 02/06/24 94.6 kg (208 lb 9.6 oz) 01/30/24 94.5 kg (208 lb 4.8 oz) 01/17/24 96.2 kg (212 lb) 01/16/24 96.6 kg (212 lb 15.4 oz) 01/14/24 96.6 kg (212 lb 14.4 oz) PHYSICAL EXAM: General Appearance: No acute distress Lungs/Thorax: Normal respiratory effort Extremities: No edema Neurologic: Normal - Grossly intact LABS: Results for orders placed or performed in visit on 01/30/24 CBC Result Value Ref Range WBC 5.21 4.00 - 10.80 K/uL RBC 2.62 3.85 - 5.15 M/uL HGB 8.9 (L) 12.0 - 15.3 g/dL HCT 27.1 (L) 36.0 - 45.2 % MCV 103.4 81.5 - 97.5 fL MCH 34.0 27.0 - 34.0 pg MCHC 32.8 32.0 - 36.0 g/dL RDW 14.1 11.5 - 15.5 % PLT 412 (H) 140 - 400 K/uL MPV 9.5 6.6 - 11.1 fL *Note: Due to a large number of results and/or encounters for the requested time period, some results have not been displayed. A complete set of results can be found in Results Review. IMPRESSION/PLAN: History of iron deficiency anemia Vitamin B12 and Folic acid deficiency S/P gastric bypass surgery History of UGIB Patient was admitted to [facility] 01/22/24 - 01/2024 for upper GI blood and acute blood loss anemia. Hgb 7.4 on presentation. EGD completed 01/23/24 showing friable gastric mucosa. Hgb improved to 8.3 on day of discharge. Discharged on PPI BID x 6 weeks. Patient feeling clinically well today. Denies any further hematemesis or melena Repeat CBCd 01/30/24 showing Hgb continues to improved at 8.9 Scheduled for repeat EGD 02/13/24 Will scheduled for mediport flush with repeat CBCd, iron screen, ferritin, vitamin b12 and folic acid later this month Continue IM Vitamin B12 1,000 mcg monthly and Folic acid 2 mg PO daily RTC in 6 months with provider with cbc/diff, cmp, iron screen, ferritin, vitamin b12 and folic acid SAJAN Martins documented in this encounter Nursing Notes * Valeria Bolton, SANITATION OFFICER - 02/06/2024 2:30 PM EDT Patient identifed by name and birthdate Do you have any concerns about pain management for today's visit? Yes. Patient instructed to discuss pain concerns with provider during the visit today Living Will or Advance Directive for Health Care as noted on the problem list. [facility] is a way you can talk to your provider on line through e-mail. Would you like to sign up? I can activate it for you? ALREADY ACTIVE Filed Vitals: 02/06/24 1430 BP: 124/86 Pulse: 90 Temp: 36.9 C (98.5 F) TempSrc: Tympanic SpO2: 98% Weight: 94.6 kg (208 lb 9.6 oz) Patient was instructed to not get up on the exam table/exam chair until directed and assisted by their provider; patient is to remain seated in the chair/ wheelchair/ exam table/ exam chair for fall prevention and safety reasons. Patient is aware to have assistance to step down off exam table/exam chair with personnel. Patient voiced full comprehension of instructions. documented in this encounter Plan of Treatment Upcoming Encounters Date Type Department Care Team (Latest Contact Info) Description 4 11:56 AM EDT Hospital Encounter [facility], Operating Room, [facility] - 4th Floor [address] [place] [phone] Anita Ha MD [address] [place] [address] 4 11:56 AM EDT - 4 1:07 PM EDT Surgery [facility], Operating Room, [facility] - 4th Floor [address] [place] [phone] Anita Ha MD [address] [place] [address] ESOPHAGOGASTRODUODENOSCOPY (EGD), FLEXIBLE, TRANSORAL, DIAGNOSTIC 4 11:30 AM EDT Nurse Only Ancillary State Michelle Gill [address] [place] [address] Nurse, [facility] [address] [place] [address] [address] 4 11:00 AM EDT Nurse Only Hematology/Onc ology Treatment, [place] [address] [facility], [place] [phone] Catina, Chair 3 Hem Onc [address] [place], [place] [address] 4 3:20 PM EST Office Visit General Internal Medicine [facility] [address] [place] [address] Kimberly Figueroa MD [address] [facility] [place] [address] 4 10:00 AM EST Telemedicine Dermatology, [place] [address] [facility] [place] [address] W[place], Pharmacist Dermatology [address] [place] [address] 4 10:00 AM EST Hem/Onc Treatment Hematology/Onc ology Treatment, [place] [address] [facility], [place] [phone] Catina, Chair 3 Hem Onc [address] [place], [place] [address] 5 2:30 PM EST Office Visit Otolaryngology [facility] [address] [facility] [place] [address] Anna Ferro MD [address] [facility] [place] [address] 5 2:30 PM EDT Office Visit Hematology/Onc ology [address] [place], [place] [phone] Tori Braxton CRNP [address] [place] [address] [place] [address] 5 7:00 AM EDT Pharmacy Neurology [address] [place] [phone] Lore, Pharmacist Neurology [address] [facility] [place] [address] Scheduled Orders Name Type Priority Associated Diagnoses Orde r Schedule CBC WITH WBC DIFFERENTIAL Lab STAT Iron deficiency anemia, unspecified iron deficiency anemia type B12 deficiency Folic acid deficiency H/O gastric bypass Gastrointestinal hemorrhage with melena Every 3 Months for 4 Occurrences starting 02/09/2024 until 03/08/2025 IRON SCREEN, INCLUDING TIBC Lab STAT Iron deficiency anemia, unspecified iron deficiency anemia type B12 deficiency Folic acid deficiency H/O gastric bypass Gastrointestinal hemorrhage with melena Every 3 Months for 4 Occurrences starting 02/09/2024 until 03/08/2025 FERRITIN Lab STAT Iron deficiency anemia, unspecified iron deficiency anemia type B12 deficiency Folic acid deficiency H/O gastric bypass Gastrointestinal hemorrhage with melena Every 3 Months for 4 Occurrences starting 02/09/2024 until 03/08/2025 COMPREHENSIVE METABOLIC PANEL Lab STAT Iron deficiency anemia, unspecified iron deficiency anemia type B12 deficiency Folic acid deficiency H/O gastric bypass Gastrointestinal hemorrhage with melena Every 6 Months for 2 Occurrences starting 02/09/2024 until 03/08/2025 VITAMIN B12 Lab STAT Iron deficiency anemia, unspecified iron deficiency anemia type B12 deficiency Folic acid deficiency H/O gastric bypass Gastrointestinal hemorrhage with melena Every 6 Months for 2 Occurrences starting 02/09/2024 until 03/08/2025 FOLIC ACID Lab STAT Iron deficiency anemia, unspecified iron deficiency anemia type B12 deficiency Folic acid deficiency H/O gastric bypass Gastrointestinal hemorrhage with melena Every 6 Months for 2 Occurrences starting 02/09/2024 until 03/08/2025 Scheduled Procedures Name Priority Associated Diagnoses Date/Ti me ESOPHAGOGASTRODUODENOSCOPY ( EGD), FLEXIBLE, TRANSORAL, DIAGNOSTIC 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/13/2024 11:56 AM EDT ESOPHAGOGASTRODUODENOSCOPY ( EGD), FLEXIBLE, TRANSORAL, DIAGNOSTIC Recall [...] this encounter Medical Devices Implanted Type Area Exchange Administrator Device Identifier Shelf Expiration Date Model / Serial / Lot Port Pwr Mri Isp Profile - [id number] Implanted:Qty: 1 on 08/09/2015 by Terrance Curry MD at OR [facility] Left: Chest CR BARD : PERIPHERAL VASCULAR 05/02/2017 [id number] / / [id number] Description:27 length of cat heter documented as of this encounter Visit Diagnoses Diagnosis Iron deficiency anemia, unspecified iron deficiency anemia type- Primary B12 deficiency Other B-complex deficiencies Folic acid deficiency Other B-complex deficiencies H/O gastric bypass Bariatric surgery status Gastrointestinal hemorrhage with melena 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 No * Full Code Date Activated Date Inactivated Comments 12/03/2011 5:56 AM 12/03/2011 1:07 PM This order r eflects the patients wishes and were consensually agreed upon. Healthcare Agents on File Name Relationship Healthcare Agent [facility] Lashanda PhillipsJerome Mother First Alternate Health Care Agent (per Health Care Power of Multilith Operator document) Care Teams Vegetable Specker Relationship Specialty Start Date End Date Kimberly Figueroa MD [address] [facility] [address] PCP - General Internal Medicine 02/21/21 documented as of this encounter
--- OUTSIDE RECORDS SUMMARY | 2024-04-13 04:56 | External Medical Summary | Summary of Care ---
Author Name Unknown Organization [facility] Address [address] [facility] [place] [address] Phone [phone] Care Team Providers Care Housing Director Name Role Phone Kimberly Figueroa MD Primary Care Provider + Reason for Visit * Reason Onset Date Comments Advice 01/31/2024 Education 01/07/2024 Forms Request 01/07/2024 Encounter Details Date Type Department Care Team (Late st Contact Info) Description 01/07/2024 Telephone General Internal Medicine [facility] [place] [address] [facility] [place] [address] Kimberly [facility]eroa MD [facility] [address] Advice; Education; Forms Request Allergies Active Allergy Reactions Criticality Noted Date Comments Cephalexin Hives 01/24/2010 As a small child Clindamycin Hives 12/30/2014 " And bad heartburn" As an adult about age 24 Hydrocodone Medium 12/26/2018 Other reaction(s): Itching Methocarbamol Rash High 06/17/2016 Sulfa Antibiotics Hives 08/05/2006 As a small child Hydrocodone-Acetaminophen Itching 01/01/2014 documented as of this encounter (statuses as of 02/13/2024) Medications Medication Sig Dispensed Refills Start Date [...] Active Topiramate 50 MG Oral Tablet (topAMAX)Indicati ons:MRB ENGINEER demyelination (HCC) TAKE 1 TABLET BY MOUTH [...] Rizatriptan Benzoate 10 MG Oral Tablet (Maxalt)Indicatio ns:MRB ENGINEER demyelination (HCC) one at onset. May repeat [...] 150 mgIndications:Depo-Provera contraceptive status 150 mg IM [id number] 02/08/2023 07/27/2025 Acti ve documented as of this encounter (statuses as of 02/13/2024) Active Problems Problem Noted Date Diagnosed Date [...] ICD-10 update of inactive term ROCK RESEARCH OTHER*[id number] 11/17/2007 documented as of this encounter (statuses as of 02/13/2024) Resolved Problems Problem Noted Date Diagnosed Date [...] BMI) 08/01/2009 01/01/2014 Overview: Per Obesity Taxonomy MRB ENGINEER demyelination 07/11/2009 09/17/2018 ADVANCE DIRECTIVE INFORMATION 07/03/2009 [...] as of this encounter (statuses as of 02/13/2024) Immunizations Name Administration Dates Next Due COVID-19 [...] for patient. Returned call to Selina from [facility] to inform her that we have received the forms. Asking that the forms be faxed back to [phone] when completed and also [phone] as an alternate fax number. Form placed in orange folder for review and signature. * Telephone Encounter - Cristina Gutierrez OSA - 01/31/2024 8:59 AM EDT Selina from [facility] calling in again to check status of MA 570 paper work sent to the office 01.07.24 for pt. Per Selina the paperwork is time sensitive and she is requesting a return call from the office regarding whether forms have been completed. Call Back Number: [phone] Please Advise. Thank you! * Telephone Encounter - Kimberly Figueroa MD - 01/29/2024 7:46 AM EDT Not seen unless its in orange folder yet to sign in my office. * Telephone Encounter - Shara Briceno LPN - 01/28/2024 1:[address] Figueroa - have you seen any form? * Telephone Encounter - Susu Peguero OSA - 01/27/2024 9:47 AM EDT Selina [facility] MA 570 form is needed by 02/21/2024. Please call Selina and let her know if this was received. * Telephone Encounter - Migdalia Levy TECH - 01/09/2024 2:24 PM EDT Attempted to contact patient/patient sales representative raw fibers regarding History and Physical requirement for patient's imaging scheduled with anesthesia on 01/15. Unable to contact patient or sales representative raw fibers at this time. Message left to return call to [facility] at [phone] during business hours: Saturday through Saturday 8:00 AM to 4:00 PM, closed weekends and holidays. * Telephone Encounter - Prema Rosales OSA - 01/07/2024 11:35 AM EDT Myriam with [employer] called and said that she will be [...] for the form. Please fax back to [phone] Attention; Myriam documented in this encounter Plan of Treatment Upcoming Encounters Date Type Department Care Team (Late st Contact Info) Description 02/19/2024 11:30 AM EDT Nurse Only Ancillary [facility] Dominique [place] [address] [place] [address] Nurse, Int Med [address] [facility] [place] [address] 02/28/2024 11:00 AM EDT Nurse Only Hematology/Oncology Treatment, [place] [address] [place] [phone] Catina, Chair 3 Hem Onc Scenery [address] [place] [address] 04/14/2024 3:20 PM EST Office Visit General Internal Medicine [facility] [address] [place], [place] [phone] Kimberly Figueroa MD 200 [facility] [place] [address] 04/15/2024 10:00 AM EST Telemedicine Dermatology, [facility] [place] [address] [facility] [place] [address] Wb, Pharmacist Dermatology [facility] [address] [facility] [place] [address] 04/17/2024 10:00 AM EST Hem/Onc Treatment Hematology/Oncology Treatment, [place] [address] [place], [place] [address] Catina, Chair 3 Hem Onc [facility] 200 [place] [address] 05/26/2024 2:30 PM EST Office Visit Otolaryngology [facility] [address] [facility] [place] [address] Anna Ferro MD 132 [facility] [place] [address] 08/06/2024 2:30 PM EDT Office Visit Hematology/Oncology [facility] [address] [place], [place] [address] Tori Braxton CRNP 400 [facility] [place] [address] 08/24/2024 7:00 AM EDT Pharmacy Neurology [address] [place] [address] Lore, Pharmacist Neurology [address] [place] [address] [place] [id number] Scheduled Procedures Name Priority Associated Diagnoses Date/Ti me ESOPHAGOGASTRODUODENOSCOPY ( EGD), FLEXIBLE, TRANSORAL, DIAGNOSTIC 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/13/2024 11:44 AM EDT ESOPHAGOGASTRODUODENOSCOPY ( EGD), FLEXIBLE, TRANSORAL, [...] this encounter Medical Devices Implanted Type Area Door Technician Device Identifier Shelf Expiration Date Model / Serial / Lot Port Pwr Mri Isp Profile - [id number] Implanted:Qty : 1 on 08/09/2015 by Terrance [place] MD [place] [facility] Left: Chest CR BARD : PERIPHERAL VASCULAR 05/02/2017 [id number] / / [id number] Description:27 length of cat heter Set Sys Ots 11-6t 165cm - [id number] Implanted:Qty : 1 on 02/13/2024 by nAita Ha MD at OR [facility] [employer] [id number] 01/03/2025 100. 10 / / [id number] Explanted Type Area Door Technician Device Identifier Shelf Expiration Date Model / Serial / Lot Stent Axios [id number] - [id number] Implanted:Qty: 1 on 03/19/2023 by Anita Ha MD at OR [facility] Explanted:Qty: 1 on 01/17/2024 by Anita Ha MD at OR [facility] [employer] : ENDOSCOPY [id number] 12/19/2023 [id number] / / [id number] documented as of this encounter Advance Directives [...] Care Agent (per Health Care Power of Try On Baster document) Care Teams Housing Director Relationship Specialty Start Date End Date Kimberly Figueroa MD [address] [place] [address], [place] [address] PCP - General Internal Medicine 02/21/21 documented as of this encounter
--- OUTSIDE RECORDS SUMMARY | 2024-04-13 04:56 | External Medical Summary | Summary of Care ---
Author Name Unknown Organization [facility] Address [address] [facility] [place] [address] Phone [phone] Care Team Providers Care Leather Goods Maker Name Role Phone Kimberly Figueroa MD Primary Care Provider + Encounter Details Date Type Department Care Team (Late st Contact Info) Description 02/13/2024 Telephone OR [facility], Operating Room, [facility] - 4th Floor 400 [facility] [place] [phone] Anita Ha MD [address] [facility] [address] Allergies Active Allergy Reactions Criticality Noted Date [...] Active Topiramate 50 MG Oral Tablet (topAMAX)Indication s:STRING CUTTER demyelination (HCC) TAKE 1 TABLET BY MOUTH [...] Rizatriptan Benzoate 10 MG Oral Tablet (Maxalt)Indications :STRING CUTTER demyelination (HCC) one at onset. May repeat [...] ICD-10 update of inactive term ROCK RESEARCH OTHER*[id number] 11/17/2007 documented as of this encounter (statuses [...] BMI) 08/01/2009 01/01/2014 Overview: Per Obesity Taxonomy STRING CUTTER demyelination 07/11/2009 09/17/2018 ADVANCE DIRECTIVE INFORMATION 07/03/2009 [...] 3:44 PM EDT Can I schedule at [facility] or do you want it at [facility]? * Telephone Encounter - Anita Ha MD - 02/13/2024 12:27 PM EDT Please schedule repeat EGD with me in 2 months. documented in this encounter Plan of Treatment Upcoming Encounters Date Type Department Care Team (Late st Contact Info) Description 02/19/2024 11:30 AM EDT Nurse Only Ancillary [facility] 200 [facility] [place] [address] Nurse, Int Med 200 [facility] [place] [address] 02/28/2024 11:00 AM EDT Nurse Only Hematology/Oncology [address], [address] [phone] Catina, Chair 3 Hem On[address] [place] [address] 04/14/2024 3:20 PM EST Office Visit General Internal Medicine [address] [place] [address] Kimberly Figueroa MD 200 [facility] [place] [address] 04/15/2024 10:00 AM EST Telemedicine Dermatology, [place] [address] [facility] [place] [address] Wb, Pharmacist Dermatology [address] [facility] [facility] [place] [address] 04/17/2024 10:00 AM EST Hem/Onc Treatment Hematology/Oncology Treatment, [address] [phone] Catina, Chair 3 Hem Onc [address] [place] [address] 05/26/2024 2:30 PM EST Office Visit Otolaryngology [facility] 132 [place] [address] Anna Ferro MD 132 [facility] [place] [address] 08/06/2024 2:30 PM EDT Office Visit Hematology/Oncology [facility] [place] 200 [facility] [place] [address] Tori Braxton, FIELD ARTILLERY SENIOR SERGEANT 400 Kimberly [place] [address] 08/24/2024 7:00 AM EDT Pharmacy Neurology [address] [place] [address] Lore, Pharmacist Neurology [facility] [place] [address] Scheduled Procedures Name Priority Associated [...] this encounter Medical Devices Implanted Type Area Pork Cutlet Maker Device Identifier Shelf Expiration Date Model / Serial / Lot Port Pwr Mri Isp Profile - [id number] Implanted:Qty : 1 on 08/09/2015 by Terrance [place] MD at [place] [facility] Left: Chest CR BARD : PERIPHERAL VASCULAR 05/02/2017 [id number] / / [id number] Description:27 length of cat heter Set Sys [facility] 11-6t 165cm - [id number] Implanted:Qty : 1 on 02/13/2024 by Anita Ha MD at OR [facility] [employer] [id number] 01/03/2025 100. 10 / / [id number] documented as of this encounter Advance Directives [...] Care Agent (per Health Care Power of Visual Merchandising Associate document) Care Teams Leather Goods Maker Relationship Specialty Start Date End Date Kimberly Figueroa MD 200 [place] [address] PCP - General Internal Medicine 02/21/21 documented as of this encounter
--- OUTSIDE RECORDS SUMMARY | 2024-04-13 04:56 | External Medical Summary | Summary of Care ---
Author Name Unknown Organization [facility] Address [address] [facility] [place] [address] Phone [phone] Care Team Providers Care Shafting Cleaner Name Role Phone Kimberly Figueroa MD Primary Care Provider + Reason for Visit * Reason Onset Date Comments Medication Refill 02/10/2024 Encounter Details Date Type Department Care Team (Late st Contact Info) Description 02/10/2024 Refill General Internal Medicine [facility] 200 [facility] [place] [address] Tyree Saenz 200 [facility] [place] [address] Recurrent major depressive disorder, in partial remission (HCC) Allergies Active Allergy Reactions Criticality Noted Date Comments Cephalexin Hives 01/24/2010 As a small child Clindamycin Hives 12/30/2014 " And bad heartburn" As an adult about age 24 Hydrocodone Medium 12/26/2018 Other reaction(s): Itching Methocarbamol Rash High 06/17/2016 Sulfa Antibiotics Hives 08/05/2006 As a small child Hydrocodone-Acetaminophen Itching 01/01/2014 documented as of this encounter (statuses as of 02/11/2024) Medications Medication Sig Dispensed Refills Start Date [...] Active Topiramate 50 MG Oral Tablet (topAMAX)Indicatio ns:EDI CONSULTANT demyelination (HCC) TAKE 1 TABLET BY MOUTH [...] Rizatriptan Benzoate 10 MG Oral Tablet (Maxalt)Indication s:EDI CONSULTANT demyelination (HCC) one at onset. May repeat [...] the morning. 90 Tablet 3 02/11/2024 Active Sertraline HCl 100 MG Oral Tablet (Zoloft)Indication s:Recurrent major depressive disorder, in partial remission (HCC) Take 1 Tablet by mouth in the morning. 30 Tablet 5 01/14/2024 4 Discontinu ed(Refill) Hospital, Clinic, or Other Facility Administered Medication Ordered Dose Route Frequency Start Date End Date Status medroxyPROGESTERone acetate (Depo-Provera) inj BRYANNA 150 mgIndications:Depo-Provera contraceptive status 150 mg IM [id number] 02/08/2023 07/27/2025 Acti ve documented as of this encounter (statuses as of 02/11/2024) Active Problems Problem Noted Date Diagnosed Date [...] ICD-10 update of inactive term ROCK RESEARCH OTHER*[id number] 11/17/2007 documented as of this encounter (statuses as of 02/11/2024) Resolved Problems Problem Noted Date Diagnosed Date [...] BMI) 08/01/2009 01/01/2014 Overview: Per Obesity Taxonomy EDI CONSULTANT demyelination 07/11/2009 09/17/2018 ADVANCE DIRECTIVE INFORMATION 07/03/2009 [...] as of this encounter (statuses as of 02/11/2024) Immunizations Name Administration Dates Next Due COVID-19 [...] Telephone Encounter - Kimberly Figueroa MD - 02/11/2024 12:58 PM EDT Signed Prescriptions: Disp Refills Sertraline HCl 100 MG Oral Tablet (Zoloft) 90 Tab*3 Sig: Take 1 Tablet by mouth in the morning. Authorizing Provider: KIMBERLY FIGUEROA * Telephone Encounter - Anna Burgos CMA - 02/10/2024 3:52 PM EDT day request Did you pend patient's preferred pharmacy and medication before forwarding?yes Pharmacy: [id number] [address] [facility] Pending Prescriptions: Disp Refills Sertraline HCl 100 MG Oral Tablet (Zoloft)90 Tab*3 Sig: Take 1 Tablet by mouth in the morning. Last Visit: 01/30/2024 (in office), Visit date not found (telemedicine) Next Visit: 04/14/2024 If no future appointments scheduled, and last appointment is greater than a year ago, please schedule patient for a follow-up appointment Last date the medication was ordered: 01/14/24 Is this request for a controlled substance?No Urine Drug Screen:No results found. However, due to the size of the patient record, not all encounters were searched. Please check Results Review for a complete set of results. Patient Phone Numbers Labs: Lab Results Component Value Date/Time CREAT 0.6 01/24/2024 04:21 AM CREAT 0.8 05/11/2020 11:59 AM POTASSIUM 3.6 01/24/2024 04:21 AM POTASSIUM 3.9 05/11/2020 11:59 AM TSH 2.22 02/07/2022 02:28 PM TSH 2.88 01/30/2019 04:10 PM LDL 26 09/21/2020 09:55 AM LDL 48 11/17/2007 12:05 PM ALT 16 01/23/2024 06:08 AM ALT 15 05/11/2020 11:59 AM HGBA1C 4.8 01/30/2019 04:10 PM documented in this encounter Plan of Treatment Upcoming Encounters Date Type Department Care Team (Latest Contact Info) Description 11:56 AM EDT Hospital Encounter OR [facility], Operating Room, [facility] - 4th Floor 400 [place] [phone] Anita Ha MD [address] [place] [address] 11:56 AM EDT - 1:07 PM EDT Surgery OR [facility], Operating Room, [facility] - 4th Floor [address] [place] [address] Anita Ha MD [address] [place] [address] ESOPHAGOGASTRODUODENOSCOPY (EGD), FLEXIBLE, TRANSORAL, DIAGNOSTIC 11:30 AM EDT Nurse Only Ancillary [address]en[address] Catina [place] [address] [place] [address] Nurse, Int Med [address] [facility] [place] [address] 11:00 AM EDT Nurse Only Hematology/Onc ology Treatment, [place] [address] [place] [phone] Catina, Chair 3 Hem Onc Scenery [address] [place] [address] 4 3:20 PM EST Office Visit General Internal Medicine [facility] [address] [place], [place] [address] Kimberly Figueroa MD 200 [facility] [place] [address] 10:00 AM EST Telemedicine Dermatology, [place] [address] [facility] [place] [address] Wb, Pharmacist Dermatology [address] [facility] [address] [facility] [place] [address] 4 10:00 AM EST Hem/Onc Treatment Hematology/Onc ology [facility], [place] [address] [place], [place] [address] Catina, Chair 3 Hem Onc [facility] 200 [facility] [place] [address] 5 2:30 PM EST Office Visit Otolaryngology [facility] 132 [facility] [place] [address] Anna Ferro MD 132 [facility] [place] [address] 5 2:30 PM EDT Office Visit Hematology/Onc ology [facility] 200 [facility] [place] [address] Tori Braxton CRNP 400 [facility] [place] [address] 5 7:00 AM EDT Pharmacy Neurology L[address] [place] [address] Lore, Pharmacist Neurology [address] [place] [address] [place] [address] Scheduled Procedures Name Priority [...] this encounter Medical Devices Implanted Type Area Sleeping Car Porter Device Identifier Shelf Expiration Date Model / Serial / Lot Port Pwr Mri Isp Profile - [id number] Implanted:Qty: 1 on 08/09/2015 by Terrance [place] MD [place] [facility] [place]: Chest CR BARD : PERIPHERAL VASCULAR 05/02/2017 [id number] / / [id number] Description:27 length of cat heter documented as of this encounter Visit Diagnoses Diagnosis Recurrent major depressive disorder, in partial remission (HCC) 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
--- OUTSIDE RECORDS SUMMARY | 2024-04-13 04:56 | External Medical Summary | Summary of Care ---
Author Name Unknown Organization [facility] Address [address] [facility] [address] Phone [phone] Care Team Providers Care Lifestyle Block Farmer Name Role Phone Kimberly Figueroa MD Primary Care Provider + Encounter Details Date Type Department Care Team (Late st Contact Info) Description 02/13/2024 Telephone OR [facility], Operating Room, [facility] - 4th Floor [address] [facility] [place] [phone] Anita Ha MD [address] [facility] [place] [address] Allergies Active Allergy Reactions Criticality Noted Date [...] Date Status FLINTSTONES COMPLETE PO CHEW daily Suspende d Cholecalciferol (VITAMIN D3) 5000 UNITS Tablet Take 1 Cap by mouth daily. Take with additonal 1000 units for total of 6000 units daily 30 Cap 11 09/28/2015 Suspended Additional Information Cranberry 500 MG Capsule Take 1 Capsule by mouth in the morning. 08/06/2017 Suspended vitamin b-12 (CYANOCOBALAMIN) 1000 MCG/ML injection Inject 1,000 mcg into a large muscle every 30 days. 12/11/2017 Suspended Ocrelizumab 300 MG/10ML Intravenous Solution Administer intravenously. Every 6 months 05/10/2018 Suspended Glucose Blood (ONETOUCH VERIO) STRPIndications:Hy poglycemia Test blood sugar once daily as directed. Dx: E16.2 100 Strip 11 02/03/2019 Suspended Additional Information ONETOUCH DELICA LANCETS 33G MISCIndications:Hy poglycemia Test blood sugar once daily as directed. Dx: E16.2 90 Each 3 02/03/2019 Suspended Additional Information Topiramate 50 MG Oral Tablet (topAMAX)Indicatio ns:MIXER TENDER demyelination (HCC) TAKE 1 TABLET BY MOUTH TWICE A DAY 180 Tab 1 11/14/2020 Suspended Additional Information medroxyPROGESTERon e Acetate 150 MG/ML Intramuscular Suspension (Depo-Provera) INJECT 150 MG INTO A LARGE MUSCLE EVERY 3 MONTHS. 1 mL 4 11/16/2021 Suspended Additional Information Albuterol Sulfate (2.5 MG/3ML) 0.083% Inhalation Nebulization Solution (Proventil)Indicat ions:Moderate persistent asthma with acute exacerbation USE ONE VIAL IN NEBULIZER EVERY 4 HOURS NEEDED FOR WHEEZING DX: J45.30 60 mL 2 12/04/2021 Suspended Additional Information Venlafaxine HCl 50 MG Oral Tablet (Effexor)Indicatio ns:AUDELIA (generalized anxiety disorder),Current moderate episode of major depressive disorder without prior episode (HCC) Take 1 Tablet by mouth in the morning and 1 Tablet before bedtime. With food.. 90 Tablet 5 08/14/2022 Suspended Promethazine HCl 25 MG Oral Tablet (Phenergan)Indicat ions:Nausea Take 1 Tablet by mouth every 6 hours as needed for Nausea. or vomiting 20 Tablet 1 02/19/2023 Suspended Additional Information Rizatriptan Benzoate 10 MG Oral Tablet (Maxalt)Indication s:MIXER TENDER demyelination (HCC) one at onset. May repeat two hour if neeed 9 Tablet 5 02/19/2023 Suspended Additional Information Triamcinolone Acetonide 0.1 % External Cream (Aristocort) Apply topically to affected area 2 times a day. Apply to rash areas. 30 g 07/23/2023 Suspended Additional Information Albuterol Sulfate HFA 108 (90 Base) MCG/ACT Inhalation Aerosol Solution INHALE 2 PUFFS BY MOUTH EVERY FOUR HOURS NEEDED FOR WHEEZING 18 g 2 10/21/2023 Suspended Additional Information EPINEPHrine 0.3 MG/0.3ML Injection Solution Auto-injector (Autoinjector) For a severe reaction: Inject in outer thigh following instructions on package and go to the Emergency room. 2 Each 3 10/21/2023 Suspended Additional Information Fexofenadine-Pseud oephed ER 180-240 MG Tablet Extended Release 24 Hour (Gemma-D Allergy & Congestion) Take 1 Tablet by mouth in the morning. Suspended Folic Acid 1 MG Oral TabletIndications: H/O gastric bypass,Folic acid deficiency Take 2 Tablets by mouth in the morning. 180 Tablet 1 12/23/2023 Suspended Additional Information Diclofenac Sodium 1 % External Gel (Voltaren)Indicati ons:Acute pain of left knee Apply 4 g topically to affected area in the morning and 4 g at noon and 4 g in the evening and 4 g before bedtime. Apply to left knee. 150 g 3 01/14/2024 Suspended Additional Information hydrOXYzine Pamoate 25 MG Oral Capsule (Vistaril)Indicati ons:AUDELIA (generalized anxiety disorder) Take 1 Capsule by mouth 3 times a day as needed for Anxiety (Sleep). 30 Capsule 5 01/14/2024 Suspended Additional Information Dupixent 300 MG/2ML Subcutaneous Solution Pen-injector (Dupilumab)Indicat ions:Rash and nonspecific skin eruption Maintenance Dose: Inject 300mg (1 pen) under the skin every two weeks. 4 mL 2 01/21/2024 Suspended Additional Information Omeprazole 40 MG Oral Capsule Delayed Release (PriLOSEC)Indicati ons:Gastrojejunal anastomotic stricture Take 1 Capsule by mouth in the morning and 1 Capsule before bedtime. 84 Capsule 01/24/2024 Suspended Additional Information Sertraline HCl 100 MG Oral Tablet (Zoloft)Indication s:Recurrent major depressive disorder, in partial remission (HCC) Take 1 Tablet by mouth in the morning. 90 Tablet 3 02/11/2024 Suspended Additional Information documented as of this encounter (statuses as [...] ICD-10 update of inactive term ROCK RESEARCH OTHER*[id number] 11/17/2007 documented as of this encounter (statuses [...] BMI) 08/01/2009 01/01/2014 Overview: Per Obesity Taxonomy MIXER TENDER demyelination 07/11/2009 09/17/2018 ADVANCE DIRECTIVE INFORMATION [...] 02/19/2024 11:30 AM EDT Nurse Only Ancillary [facility] [address] [place] [address] Nurse, Int Med 200 [facility] [place] [address] 02/28/2024 11:00 AM EDT Nurse Only Hematology/Oncology Treatment, [address] [phone] Catina, Chair 3 Hem Onc [address] [place] [address] 04/14/2024 3:20 PM EST Office Visit General Internal Medicine [address] [place] [address] Kimberly Figueroa MD 200 [facility] [place] [address] 04/15/2024 10:00 AM EST Telemedicine Dermatology, Katarina Santos [address] [place] [address] Wb, Pharmacist Dermatology [address] [place] [address] 04/17/2024 10:00 AM EST Hem/Onc Treatment Hematology/Oncology Treatment, [address] [phone] Catina, Chair 3 Hem Onc [address] [place] [address] 05/26/2024 2:30 PM EST Office Visit Otolaryngology [facility] 132 [place] [address] Anna Ferro MD 132 [place] [address] 08/06/2024 2:30 PM EDT Office Visit Hematology/Oncology Alexey Dominique [place] [address] [place] [address] Tori Braxton CRNP [address] [place] [address] 08/24/2024 7:00 AM EDT Pharmacy Neurology [address] [place] [phone] Lore, Pharmacist Neurology 100 [facility] [phone] Scheduled Procedures Name Priority Associated Diagnoses Date/Ti [...] this encounter Medical Devices Implanted Type Area Digital Experience Manager Device Identifier Shelf Expiration Date Model / Serial / Lot Port Pwr Mri Isp Profile - [id number] Implanted:Qty : 1 on 08/09/2015 by Terrance Curry MD at OR [facility] [place] Left: Chest CR BARD : PERIPHERAL VASCULAR 05/02/2017 [id number] / / [id number] Description:27 length of cat heter Set Sys Otsc 11-6t 165cm - [id number] Implanted:Qty : 1 on 02/13/2024 by Anita Ha MD at OR [facility] [employer] [id number] 01/03/2025 100. 10 / / [id number] documented as of this encounter Advance Directives [...] Agents on File Name Relationship Healthcare Agent [facility] Communication Lashanda Justus Mother First Alternate Health Care Agent (per Health Care Power of Sand Screener Operator document) Care Teams Lifestyle Block Farmer Relationship Specialty Start Date End Date Kimberly Figueroa MD [address] [place] [address], [place] [address] PCP - General Internal Medicine 02/21/21 documented as of this encounter
--- OUTSIDE RECORDS SUMMARY | 2024-04-13 04:56 | External Medical Summary | Summary of Care ---
Author Name Unknown Organization [facility] Address [address] [facility] [place] [address] Phone [phone] Care Team Providers Care Club Steward Name Role Phone Kimberly Figueroa MD Primary Care Provider + Reason for Visit * Reason Comments Procedure Port flush/lab draw Encounter Details Date Type Department Care Team (Late st Contact Info) Description 01/30/2024 1:15 PM EDT Nurse Only Hematology/Oncology Treatment, [address] [phone] Park, Chair 1 Hem On[address] [address] Procedure (Port flush/lab draw) Allergies Active Allergy Reactions Criticality Noted Date Comments Cephalexin Hives 01/24/2010 As a small child Clindamycin Hives 12/30/2014 " And bad heartburn" As an adult about age 24 Hydrocodone Medium 12/26/2018 Other reaction(s): Itching Methocarbamol Rash High 06/17/2016 Sulfa Antibiotics Hives 08/05/2006 As a small child Hydrocodone-Acetaminophen Itching 01/01/2014 documented as of this encounter (statuses as of 02/16/2024) Medications Medication Sig Dispensed Refills Start Date [...] Active Topiramate 50 MG Oral Tablet (topAMAX)Indicatio ns: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 May repeat [...] 150 mgIndications:Depo-Provera contraceptive status 150 mg IM [id number] 02/08/2023 07/27/2025 Acti ve documented as of this encounter (statuses as of 02/16/2024) Active Problems Problem Noted Date Diagnosed Date [...] ICD-10 update of inactive term ROCK RESEARCH OTHER*[id number] 11/17/2007 documented as of this encounter (statuses as of 02/16/2024) Resolved Problems Problem Noted Date Diagnosed Date [...] BMI) 08/01/2009 01/01/2014 Overview: Per Obesity Taxonomy BARREL BUNG REMOVER AND DUMPER demyelination 07/11/2009 09/17/2018 ADVANCE DIRECTIVE INFORMATION 07/03/2009 [...] as of this encounter (statuses as of 02/16/2024) Immunizations Name Administration Dates Next Due COVID-19 [...] No 01/22/2024 documented as of this encounter Nursing Notes * Gretel Osborne RN - 01/30/2024 2:05 PM EDT Patient to chair 8 ambulatory Patient voices no complaints or concerns Safety and Risk for Injury Patient will remain free from injury. Ensure appropriate safety devices are available. Provide and maintain safe environment. Patient instructed on use of heat and massage functions where applicable. Patient shown how to operate the heat function of the chair and to alert nursing staff if the chair feels too warm. Patient instructed on the risk of potential smith while using the heat function. Goals: patient will remain free of injury Possible barriers to meeting goals: Stability of the patient: Moderately stable - low risk of patient condition declining or worsening Summary regarding today's goals: Met: patient remained free of injury VAD (Venous Access Device) accessed with #20G 3/4" without difficulty. Flushed easy with positive blood return, lab obtained and sent to lab. VAD flushed with 10 ml NSS and Heparin 5 ml (100 units/ml). Whaley needle removed intact. Patient discharged in good condition, tolerated well documented in this encounter Miscellaneous Notes * Result Encounter Note - Kimberly Figueroa MD - 01/30/2024 4:21 PM EDT Repeat CBCD is improving compared to before. Patient was in the office and I can read the lab results with the patient while in the office. documented in this encounter Plan of Treatment Upcoming Encounters Date Type Department Care Team (Late st Contact Info) Description 02/19/2024 11:30 AM EDT Nurse Only Ancillary [facility] Michelle Gill [address] [place] [address] Nurse, Int Med [address] [place] [address] 02/28/2024 11:00 AM EDT Nurse Only Hematology/Oncology Treatment, [place] 200 [facility], [place] [phone] Catina, Chair 3 Hem On[address] [place], [place] [address] 04/14/2024 3:20 PM EST Office Visit General Internal Medicine [facility] [address] [place], [place] [address] Kimberly Figueroa MD 200 [facility] [place], [place] [address] 04/15/2024 10:00 AM EST Telemedicine Dermatology, [facility] [address] [facility] [place] [address] Wb, Pharmacist Dermatology [address] [place] [address] 04/17/2024 10:00 AM EST Hem/Onc Treatment Hematology/Oncology Treatment[address], [place] [phone] Catina, Chair 3 Hem Onc [address] [place], [place] [address] 05/26/2024 2:30 PM EST Office Visit Otolaryngology [facility] 132 [facility] [place] [address] Anna Ferro MD 132 [facility] [place] [address] 08/06/2024 2:30 PM EDT Office Visit Hematology/Oncology [facility] 200 [facility] [place], [place] [phone] Tori Braxton CRNP 400 [facility] [place] [address] 08/24/2024 7:00 AM EDT Pharmacy Neurology [address] [place] [phone] Lore, Pharmacist Neurology 100 [address] [facility] [place] [address] Scheduled Procedures Name [...] this encounter Medical Devices Implanted Type Area Distribution Warehouse Manager Device Identifier Shelf Expiration Date Model / Serial / Lot Port Pwr Mri Isp Profile - [id number] Implanted:Qty: 1 on 08/09/2015 by Terrance Curry MD at OR [facility] Left: Chest CR BARD : PERIPHERAL VASCULAR 05/02/2017 [id number] / / [id number] Description:27 length of cat heter documented as of this encounter Procedures Procedure Name Priority Date/Time Associated Diagnosis Comments CBC Routine 01/30/2024 1:51 PM EDT Gastrointestinal hemorrhage with melena Hematemesis with nausea documented in this encounter Results * (ABNORMAL) CBC (01/30/2024 1:51 PM EDT) WBC 5.21 4.00 - 10.80 K/uL 01/30/2024 2:13 PM EDT [facility] 56 RBC 2.62 3.85 - 5.15 M/uL 01/30/2024 2:[address] PM EDT [address] HGB 8.9(L) 12.0 - 15.3 g/dL 01/30/2024 2:13 [address] EDT [address] HCT 27.1(L) 36.0 - 45.2 % 01/30/2024 2:13 PM EDT [address] MCV 103.4 81.5 - 97.5 fL 01/30/2024 2:13 PM EDT [address] MCH 34.0 27.0 - 34.0 pg 01/30/2024 2:13 PM EDT [address] MCHC 32.8 32.0 - 36.0 g/dL 01/30/2024 2:13 PM EDT [address] RDW 14.1 11.5 - 15.5 % 01/30/2024 2:13 PM EDT [address] PLT 412(H) 140 - 400 K/uL 01/30/2024 2:13 PM EDT [address] MPV 9.5 6.6 - 11.1 fL 01/30/2024 2:13 PM EDT [address] Blood Venous blood specimen / Unknown Venipuncture / Unknown 01/30/2024 1:51 PM EDT 01/30/2024 2:03 PM EDT Vikas Royal MD LAB BLOOD ORD ERABLES [facility] [address] [place] [address] documented in this encounter Visit Diagnoses Diagnosis Iron deficiency anemia, unspecified iron deficiency anemia type- Primary Gastrointestinal hemorrhage with melena Hematemesis with nausea B12 deficiency Other B-complex deficiencies Encounter for central line care Fitting and adjustment of vascular catheter documented in this encounter Administered Medications Inactive Administered Medications - up to 3 most recent administrations Medication Order MAR Action Action Date Dose Rate Site hEParin 100 UNIT/ML Lock Flush inj 500 Units 500 Units (5 mL), IV Lock, PRN Other, IV Flush, Starting on Maria Elena 01/30/24 at 1408, Until Maria Elena 01/30/24 at 1822, For 24 hours, Do not flush if lock, PICC, or central line not in place; IV infusing or unable to flush. Given 01/30/2024 2:11 PM EDT 500 Units sodium chloride 0.9 % flush central line 10 mL 10 mL, IV Push, PRN Other, IV Flush, Starting on Maria Elena 01/30/24 at 1408, Until Maria Elena 01/30/24 at 1822, For 24 hours, Do not flush if lock, PICC, or central line not in place; IV infusing or unable to flush. Given 01/30/2024 2:11 PM EDT 10 mL Vitamin B-12 (Cyanocobalamin) inj 1,000 mcg 1,000 mcg, Intramuscular, ONCE, On Maria Elena 01/30/24 at 1445, For 1 dose Given 01/30/2024 2:19 PM EDT 1,000 mcg Arm Left Upper documented in this encounter Advance [...] Agents on File Name Relationship Healthcare Agent [facility] p Communication Lashanda Justus Mother First Alternate Health Care Agent (per Health Care Power of Quality Assurance Practice Manager document) Care Teams Club Steward Relationship Specialty Start Date End Date Kimberly Figueroa MD 200 [place] [address] PCP - General Internal Medicine 02/21/21 documented as of this encounter
--- OUTSIDE RECORDS SUMMARY | 2024-04-13 04:56 | External Medical Summary ---
Author Name Unknown Address Unknown Organization : Laboratory Report Ordering Provider Test Date Status ALAINA KIM 02/13/2024 10:57:02 Final Observation Date Value Abnormality Reference (Units ) Status Glucose Point of Care 02/13/2024 10:57:02 100 70-120 (mg/dL) Final Performing Location
--- OUTSIDE RECORDS SUMMARY | 2024-04-13 04:56 | External Medical Summary | Summary of Care ---
Author Name Unknown Organization [facility] Address [address] [facility] [place] [address] Phone [phone] Care Team Providers Care Media Technician Name Role Phone Kimberly Figueroa MD Primary Care Provider + Reason for Visit * Reason Onset Date Comments Med Request 02/17/2024 Encounter Details Date Type Department Care Team (Late st Contact Info) Description 02/17/2024 Telephone Gastroenterology, [facility] [address] [place] [address] Anita Ha MD [address] [place] [address] Med Request (/) Allergies Active Allergy Reactions Criticality Noted Date Comments Cephalexin Hives 01/24/2010 As a small child Clindamycin Hives 12/30/2014 " And bad heartburn" As an adult about age 24 Hydrocodone Medium 12/26/2018 Other reaction(s): Itching Methocarbamol Rash High 06/17/2016 Sulfa Antibiotics Hives 08/05/2006 As a small child Hydrocodone-Acetaminophen Itching 01/01/2014 documented as of this encounter (statuses as of 02/18/2024) Medications Medication Sig Dispensed Refills Start Date [...] Active Topiramate 50 MG Oral Tablet (topAMAX)Indication s:GLOBAL SUPPLY CHAIN DIRECTOR demyelination (HCC) TAKE 1 TABLET BY MOUTH [...] Rizatriptan Benzoate 10 MG Oral Tablet (Maxalt)Indications :GLOBAL SUPPLY CHAIN DIRECTOR demyelination (HCC) one at onset. May repeat [...] 150 mgIndications:Depo-Provera contraceptive status 150 mg IM [id number] 02/08/2023 07/27/2025 Acti ve documented as of this encounter (statuses as of 02/18/2024) Active Problems Problem Noted Date Diagnosed Date [...] ICD-10 update of inactive term ROCK RESEARCH OTHER*[id number] 11/17/2007 documented as of this encounter (statuses as of 02/18/2024) Resolved Problems Problem Noted Date Diagnosed Date [...] 08/01/2009 01/01/2014 Overview: Per Obesity Taxonomy GLOBAL SUPPLY CHAIN DIRECTOR demyelination 07/11/2009 09/17/2018 ADVANCE DIRECTIVE INFORMATION 07/03/2009 [...] as of this encounter (statuses as of 02/18/2024) Immunizations Name Administration Dates Next Due COVID-19 [...] Telephone Encounter - Anita Ha MD - 02/18/2024 8:08 AM EDT I sent it. * Telephone Encounter - Cecy Harvey CPhT - 02/17/2024 4:27 PM EDT Pt mom calling back in and said pt [id number] [address] [facility] Thank you, Cecy Harvey CPhT Nutrition Services Associate III [facility] 02/17/2024, 4:28 PM * Telephone Encounter - Cintia Kern LPN - 02/17/2024 1:34 PM EDT Left message to see which [facility] she uses * Telephone Encounter - Ciara Quintero CPhT - 02/17/2024 12:36 PM EDT Mom states pt has not received rx for liquid Carafate. [facility] ThanksCiara CPhT, Tech II [facility] ([facility]) [address] [place] [address] documented in this encounter Plan of Treatment Upcoming Encounters Date Type Department Care Team (Late st Contact Info) Description 02/19/2024 11:30 AM EDT Nurse Only Ancillary Alexey Dominique [place] [address] [place] [address] Nurse, Int Med [address] [place] [address] 02/28/2024 11:00 AM EDT Nurse Only Hematology/Oncology Treatment, [place] 200 [facility], [place] [phone] Catina, Chair 3 Hem Onc [facility] 200 [facility] [place], [place] [address] 04/14/2024 3:20 PM EST Office Visit General Internal Medicine [address] [place], [place] [address] Kimberly Figueroa MD 200 [facility] [place], [place] [address] 04/15/2024 10:00 AM EST Telemedicine Dermatology, Katarina Santos [address] [facility] [place] [address] Wb, Pharmacist Dermatology [address] [facility] [address] [facility] [place] [address] 04/17/2024 10:00 AM EST Hem/Onc Treatment Hematology/Oncology Treatment, [place] 200 [facility], [place] [phone] Catina, Chair 3 Hem Onc [address] [place], [place] [address] 05/26/2024 2:30 PM EST Office Visit Otolaryngology [facility] 132 [facility] [place] [address] Anna Ferro MD 132 [facility] [place] [address] 08/06/2024 2:30 PM EDT Office Visit Hematology/Oncology [facility] 200 [facility] [place], [place] [phone] Tori Braxtno CRNP [address] [place], [place] [address] [address] 08/24/2024 7:00 AM EDT Pharmacy Neurology [address] [place] [phone] Lore, Pharmacist Neurology 100 [address] [facility] [place] [address] Scheduled Procedures Name [...] this encounter Medical Devices Implanted Type Area Pain Coordinator Device Identifier Shelf Expiration Date Model / Serial / Lot Port Pwr Mri Isp Profile - [id number] Implanted:Qty : 1 on 08/09/2015 by Terrance Curry MD at OR [facility] Left: Chest CR BARD : PERIPHERAL VASCULAR 05/02/2017 [id number] / / [id number] Description:27 length of cat heter Set Sys Otsc 11-6t 165cm - [id number] Implanted:Qty : 1 on 02/13/2024 by Anita Ha MD at OR [facility] [employer] [id number] 01/03/2025 100. 10 / / [id number] documented as of this encounter Advance Directives [...] Care Agent (per Health Care Power of Ripening Room Operator document) Care Teams Media Technician Relationship Specialty Start Date End Date Kimberly Figueroa MD [address] [place] [address], [place] [address] PCP - General Internal Medicine 02/21/21 documented as of this encounter
--- OUTSIDE RECORDS SUMMARY | 2024-04-13 04:56 | External Medical Summary | Summary of Care ---
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] Procedures EGD, FLEXIBLE, DIAGNOSTIC ESOPHAGOGASTRODUODENOSCOPY (EGD), FLEXIBLE, TRANSORAL, DIAGNOSTIC Anita Ha MD [address] [place] [address] Or [facility] [address] [place] [phone] Referral ID Status Reason Start Date Expiration Date Visits Re quested Visits Authorized [id number] Encounter Details Date Type Department Care Team (Latest Contact Info) Description 02/13/2024 9:27 AM EDT - 02/13/2024 2:17 PM EDT Hospital Encounter OR [facility], Operating Room, Main Hospital - 4th Floor [address] [place] [phone] Anita Ha MD [address] [place] [address] Various: UGI,KRAVS Discharge Disposition: Home - Self Care Allergies Active Allergy Reactions Criticality Noted Date Comments Cephalexin Hives 01/24/2010 As a small child Clindamycin Hives 12/30/2014 " And bad heartburn" As an adult about age 24 Hydrocodone Medium 12/26/2018 Other reaction(s): Itching Methocarbamol Rash High 06/17/2016 Sulfa Antibiotics Hives 08/05/2006 As a small child Hydrocodone-Acetaminophen Itching 01/01/2014 documented as of this encounter (statuses as of 02/14/2024) Medications Medication Sig Dispensed Refills Start Date [...] Active Topiramate 50 MG Oral Tablet (topAMAX)Indicatio ns:NEUROLOGY PHYSICIAN ASSISTANT demyelination (HCC) TAKE 1 TABLET BY MOUTH [...] Rizatriptan Benzoate 10 MG Oral Tablet (Maxalt)Indication s:NEUROLOGY PHYSICIAN ASSISTANT demyelination (HCC) one at onset. May repeat [...] 30 Tablet 5 01/14/2024 4 Discontinu ed(Refill) documented as of this encounter (statuses as of 02/14/2024) Active Problems Problem Noted Date Diagnosed Date [...] ICD-10 update of inactive term R[employer] OTHER*[id number] 11/17/2007 documented as of this encounter (statuses as of 02/14/2024) Resolved Problems Problem Noted Date Diagnosed Date [...] BMI) 08/01/2009 01/01/2014 Overview: Per Obesity Taxonomy NEUROLOGY PHYSICIAN ASSISTANT demyelination 07/11/2009 09/17/2018 ADVANCE DIRECTIVE INFORMATION 07/03/2009 [...] as of this encounter (statuses as of 02/14/2024) Immunizations Name Administration Dates Next Due COVID-19 [...] Sign Reading Time Taken Comments Blood Pressure 131/92 02/13/2024 2:11 PM EDT Pulse 89 02/13/2024 2:11 PM EDT Temperature 37 C (98.6 F) 02/13/2024 2:11 PM EDT Respiratory Rate 18 02/13/2024 2:11 PM EDT Oxygen Saturation 98% 02/13/2024 2:11 PM EDT Inhaled Oxygen Concentration - - Weight 94.3 kg (208 lb) 02/13/2024 9:55 AM EDT Height 172 cm (5' 7.72") 02/13/2024 9:55 AM EDT Body Mass Index 31.89 02/13/2024 9:55 AM EDT documented in this [...] No 04/18/2015 documented as of this encounter H&P Notes * Anita Ha MD - 02/13/2024 10:18 AM EDT Endoscopy Pre-Procedure Assessment Name: Shaunna Jerome Date: 02/13/2024 Time: 10:18 AM Procedure(s): Upper GI Endoscopy; with Indication(s) of fistula closure Endoscopy Pre-Procedure Assessment: Prior to the procedure, the patient was identified. The patient's history, medications and allergies were reviewed as per the Anesthesia Assessment. The patient is competent. The risks and benefits of the proposed procedure and the planned sedation were discussed with the patient. All questions were answered and informed consent for the procedure was obtained. BP 141/97 | Pulse 102 | Temp 36.6 C (97.9 F) (Tympanic) | Resp 16 | Ht 1.72 m (5' 7.72") | Wt 94.3 kg (208 lb) | LMP (LMP Unknown) Comment: more than a year since last period due to depo shot | SpO2 100% | BMI 31.89 kg/m | BSA 2.12 m Review of patient's allergies indicates: Allergen Reactions Robaxin [Methocarbamol] Rash Hydrocodone Other reaction(s): Itching Cephalexin Hives As a small child Clindamycin Hives " And bad heartburn" As an adult about age 24 Sulfa Antibiotics Hives As a small child Vicodin [Hydrocodone-Acetaminophen] Itching Prior to Admission medications Medication Sig Last Dose Discont. Sertraline HCl 100 MG Oral Tablet (Zoloft) Take 1 Tablet by mouth in the morning. 02/12/2024 Omeprazole 40 MG Oral Capsule Delayed Release (PriLOSEC) Take 1 Capsule by mouth in the morning and1 Capsule before bedtime. 02/12/2024 Dupixent 300 MG/2ML Subcutaneous Solution Pen-injector (Dupilumab) Maintenance Dose: Inject 300mg (1 pen) under the skin every two weeks. Past Month Diclofenac Sodium 1 % External Gel (Voltaren) Apply 4 g topically to affected area in the morning and 4 g at noon and 4 g in the evening and 4 g before bedtime. Apply to left knee. Past Month Folic Acid 1 MG Oral Tablet Take 2 Tablets by mouth in the morning. 02/12/2024 Fexofenadine-Pseudoephed ER 180-240 MG Tablet Extended Release 24 Hour (Gemma- D Allergy & Congestion) Take 1 Tablet by mouth in the morning. 02/12/2024 Triamcinolone Acetonide 0.1 % External Cream (Aristocort) Apply topically to affected area 2 times a day. Apply to rash areas. Past Month Promethazine HCl 25 MG Oral Tablet (Phenergan) Take 1 Tablet by mouth every 6 hours as needed for Nausea. or vomiting Past Month Venlafaxine HCl 50 MG Oral Tablet (Effexor) Take 1 Tablet by mouth in the morning and 1 Tablet before bedtime. With food.. 02/12/2024 medroxyPROGESTERone Acetate 150 MG/ML Intramuscular Suspension (Depo-Provera) INJECT 150 MG INTO A LARGE MUSCLE EVERY 3 MONTHS. Past Month Topiramate 50 MG Oral Tablet (topAMAX) TAKE 1 TABLET BY MOUTH TWICE A DAY 02/12/2024 vitamin b-12 (CYANOCOBALAMIN) 1000 MCG/ML injection Inject 1,000 mcg into a large muscle every 30 days. 02/12/2024 Cranberry 500 MG Capsule Take 1 Capsule by mouth in the morning. 02/12/2024 Cholecalciferol (VITAMIN D3) 5000 UNITS Tablet Take 1 Cap by mouth daily. Take with additonal 1000 units for total of 6000 units daily 02/12/2024 FLINTSTONES COMPLETE PO CHEW daily 02/12/2024 hydrOXYzine Pamoate 25 MG Oral Capsule (Vistaril) Take 1 Capsule by mouth 3 times a day as needed for Anxiety (Sleep). Over 30 Days Albuterol Sulfate HFA 108 (90 Base) MCG/ACT Inhalation Aerosol Solution INHALE 2 PUFFS BY MOUTH EVERY FOUR HOURS NEEDED FOR WHEEZING Over 30 Days EPINEPHrine 0.3 MG/0.3ML Injection Solution Auto-injector (Autoinjector) For a severe reaction: Inject in outer thigh following instructions on package and go to the Emergency room. Over 30 Days Rizatriptan Benzoate 10 MG Oral Tablet (Maxalt) one at onset. May repeat two hour if neeed Over 30 Days Albuterol Sulfate (2.5 MG/3ML) 0.083% Inhalation Nebulization Solution (Proventil) USE ONE VIAL IN NEBULIZER EVERY 4 HOURS NEEDED FOR WHEEZING DX: J45.30 Over 30 Days Glucose Blood (ONETOUCH VERIO) STRP Test blood sugar once daily as directed. Dx: E16.2 Over 30 Days ONETOUCH DELICA LANCETS 33G MISC Test blood sugar once daily as directed. Dx: E16.2 Over 30 Days Ocrelizumab 300 MG/10ML Intravenous Solution Administer intravenously. Every 6 months Over 30 Days Physical Exam: Mental Status Examination: alert and oriented. Airway Examination: normal oropharyngeal airway and neck mobility. Respiratory Examination: clear to auscultation. CV Examination: Regular rate and rythm, no murmurs. ASA Grade: III - A patient with severe systemic disease. After reviewing the risks and benefits, the patient was deemed in satisfactory condition to undergothe procedure. The anesthesia plan was to use general anesthesia. Patient was explained in detail regarding risks, benefits, limitations and alternatives of the above endoscopic procedure. Risks of intravenous sedation used for procedure were also explained. Risks include, but not limited to perforation, bleeding, infection, respiratory distress, cardiac arrest and . Risk of acute pancreatitis and necrosis if ERCP is done. Patient is also aware about the possibility of missed lesion. Patient's questions were answered. The patient verbalized understandingthe information and agreed to undergo the procedure. Discussed with the patient that he/she is at an explicit higher risk for complications in comparison to other patients Anita Ha MD 02/13/2024 documented in this encounter Procedure Notes * Kimberly Figueroa MD - 02/13/2024 11:29 AM EDTAssociated Order(s): UPPER GI ENDOSCOPY [facility] Patient Name: Shaunna Jerome Procedure Date: 02/13/2024 11:29 AM Date of : 1990 Admit Type: Outpatient Note Status: Finalized Date of : 1990 Admit Type: Outpatient Age: 33 Room: OR 5 Gender: Female Note Status: Finalized Procedure: Upper GI endoscopy Indications: Enteroenteric fistula Providers: Anita Ha MD (Doctor), Rebecca Anne RN Referring MD: Kimberly Figueroa MD Medicines: General Anesthesia Complications: No immediate complications. Procedure: Pre-Anesthesia Assessment: - Prior to the procedure, a History and Physical was performed, and patient medications, allergies and sensitivities were reviewed. The patient's tolerance of previous anesthesia was reviewed. - The risks and benefits of the procedure and the sedation options and risks were discussed with the patient. All questions were answered and informed consent was obtained. - Patient identification and proposed procedure were verified prior to the procedure by the physician and the nurse. The procedure was verified in the procedure room. - Pre-procedure physical examination revealed no contraindications to sedation. After obtaining informed consent, the endoscope was passed under direct vision. All instruments were visually inspected immediately before and after removal from the patient to ensure they are fully intact. Throughout the procedure, the patient's blood pressure, pulse, and oxygen saturations were monitored continuously.The upper GI endoscopy was accomplished without difficulty. The patient tolerated the procedure well. The was introduced through the mouth, and advanced to the efferent jejunal loop. Findings & Specimens: The examined esophagus was normal. Evidence of a gastric bypass was found. A gastric pouch with a normal size was found. The gastrojejunal anastomosis was characterized by ulceration. This was traversed. A 8 mm fistula was found in the gastric body. Fulguration to ablate the lesion by monopolar probe was successful. To close the fistula, one 11/6t OVESCO clip was successfully placed (MR conditional). Impression: - Normal esophagus. - Gastric bypass with a normal-sized pouch. Gastrojejunal anastomosis characterized by ulceration. 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 - No specimens collected. Recommendation: - Discharge patient to home. - Clear liquid diet for 1 day, then advance as tolerated to full liquid diet for 1 day. - No aspirin, ibuprofen, naproxen, or other non-steroidal anti-inflammatory drugs for 5 days. - PO PPI and Carafate BID. - Repeat upper endoscopy in 2 months to check healing. - Return to referring physician. Anita Ha MD 02/13/2024 12:27:38 PM This report has been signed electronically. Estimated Blood Loss: Estimated blood loss: none. documented in this encounter Nursing Notes * Saravanan Hendrix RN - 02/13/2024 1:32 PM EDT Post Anesthesia Care Unit Discharge Note [facility] [address] Dept. Shaunnaher Ramírezveronica DurantJerome Vital Signs Stable Discharged from PACU as per discharge criteria (see discharge criteria sheet). Time: 1330 Reported to: n/a Taken to In/ Out Surgery, accompanied by Saravanan Hendrix RN . Transported via: Stretcher Belongings with Patient: yes Prescriptions on Chart: N/A Patient meets criteria to be transferred or discharged * Marsha Hogan RN - 02/13/2024 12:18 PM EDT EGD w/ fistula closure completed in [facility] OR. Sedated by TIE TAMPER. See anesthesia record for VS and medications given. Pt tolerated procedure well with minimal gagging. Abd soft. Airway patent. Pt to recovery on L side with HOB elevated. Report to recovery room nurse. Bedside cleaning done by Yudelka Anne RN. * Saravanan Hendrix RN - 02/13/2024 10:00 AM EDT Patient or the Patients Legally Authorized Cut [employer] Log has been advised that (1) the Patient meets criteria for testing and (2) the administration of anesthesia, radiation or other imaging agents may have a harmful impact to an unborn child. The Patient or Patients Representativewere offered the opportunity to ask questions as to necessity of such testing and potential outcomes. Consent for testing has been declined. documented in this encounter Miscellaneous Notes * Pt Handout (on AVS) - Saravanan Hendrix RN - 02/13/2024 1:16 PM EDT 10559 Discharge Instructions: Having a Clear Liquid Diet Your healthcare provider has prescribed a clear liquid diet for you. This temporary diet is often prescribed right before surgery or medical tests when you need to have your stomach and intestines free of any food. This diet may also be prescribed after certain types of surgery or if solid food is not tolerated. The clear liquid diet is easy to digest and helps the body gradually get used to foodagain. Home care This diet is temporary. Don't follow this diet longer than directed. It doesn?t provide enough energy or protein for proper nutrition. If you are on this diet for more than 3 to 4 days, you may need nutritional or vitamin supplements. Talk with your healthcare provider about this. Keep track of what you eat and drink and how much while on this diet. Keep a log for your healthcare provider. Choose these foods The following foods are OK to have when you are on a clear liquid diet: Water; ice chips Fruit juices without pulp, such as filtered apple juice, grape juice, cranberry juice, and pulp-free lemonade Fruit punch or fruit drinks with no pulp or pieces Hot or cold coffee or tea (don't add milk or creamers of any type) Clear sodas (lemon-nikolai soda, annita reagan) Sports drinks Clear soup (low-sodium and fat-free broth or bouillon) Plain or flavored gelatin (don't add fruit or toppings) Frozen juice bars made from clear juices (no pulp or fruit pieces) Don't have these foods Fruit juices with pulp or nectar, such as prune juice Milk, yogurt, and pudding Cream-based soups Any food or drink not on the approved list above Ask your healthcare provider if you should skip foods and drinks containing red or purple food coloring. They can leave results that looks like blood on tests. Follow-up Follow up with your healthcare provider as advised. When to call your healthcare provider Call your healthcare provider right away if you have any of the following: Fever of 100.4 F ( 38C ) or higher, or as directed by your healthcare provider Diarrhea that lasts for longer than 24 hours Vomiting that does not stop Trouble urinating Trouble passing gas Abdominal pain with bloating and cramping Last Reviewed Date: 2022 00:00:00 [id number] [employer]. All rights reserved. This information is not intended as a substitute for professional medical care. Always follow your healthcare professional's instructions. * Pt Handout (on AVS) - Saravanan Hendrix RN - 02/13/2024 1:16 PM EDT [address] Discharge Instructions: Having a Full Liquid Diet Your healthcare provider prescribed a full liquid diet temporarily for you. You may have trouble swallowing solid foods. Or, you may have had surgery and not be ready for solid food or need to advance to solid foods gradually. Here's what you need to know about this type of diet. Home care Remember, this diet is temporary. You should not follow this diet longer than directed because it might not provide you with enough fiber, vitamins, and minerals. Contact your healthcare provider if you are on this diet for more than 5 days. You may need nutritional or vitamin supplements. Keep track of the amount of liquid that you drink and anything you eat while on this diet. Keep a log for your healthcare provider. Choose these foods Choose fruit juices without pulp, such as apple juice, grape juice, cranberry juice, and nectars. Choose drinks such as coffee, tea (hot or cold), fruit-flavored drinks, soda, water, milk (whole, skim, 1%, and 2%), cream, instant breakfast drinks, and liquid meal replacements. Choose desserts and snacks such as fruit ices (without chunks of fruit), plain or vanilla yogurt(without fruit chunks), plain gelatin, hard candy, frozen juice pops, custards, frozen yogurt, smoothies without chunks, ice cream (without nuts or candy), and pudding. Choose broth, bouillon, fat-free consomm, or strained cream soups. Choose thin, refined hot cereals, such as porridge, and grits. Don't eat these foods Don?t eat canned, fresh, or frozen fruit. Don?t eat soup with vegetables, noodles, rice, meat, or other chunks of food in it. Don?t eat vegetables, bread, whole cereal and grain products, meat, chicken, fish, eggs, meat substitutes (nuts and nut butters, tofu, soy), hard cheese, oils, butter, or margarine. Follow-up Make a follow-up appointment, or as advised. When to call your healthcare provider Call your healthcare provider right away if you have any of the following: Fever of 100.4F (38.0C) or higher, or as advised by your healthcare provider Diarrhea that lasts for more than 1 day Vomiting that does not stop Trouble urinating Trouble passing gas Abdominal pain with bloating and cramping Last Reviewed Date: 2022 00:00:00 [id number] [employer]. All rights reserved. This information is not intended as a substitute for professional medical care. Always follow your healthcare professional's instructions. documented in this encounter Plan of Treatment Upcoming Encounters Date Type Department Care Team (Late st Contact Info) Description 02/19/2024 11:30 AM EDT Nurse Only Ancillary [facility] [place] [address] [facility] [place] [address] Nurse, Int Med [address] [facility] [place] [address] 02/28/2024 11:00 AM EDT Nurse Only Hematology/Oncology Treatment, [address] [phone] Catina, Chair 3 Hem Onc [address] [place] [address] 04/14/2024 3:20 PM EST Office Visit General Internal Medicine [facility] [place] [address] [facility] [place] [address] Kimberly Figueroa MD [address] [facility] [place] [address] 04/15/2024 10:00 AM EST Telemedicine Dermatology, Katarina Santos [address] [place] [address] Wb, Pharmacist Dermatology [facility] [address] [place] [address] 04/17/2024 10:00 AM EST Hem/Onc Treatment Hematology/Oncology Treatment, [address] [phone] Catina, Chair [address] Hem Onc [address] [place] [address] 05/26/2024 2:30 PM EST Office Visit Otolaryngology [facility] [address] [place] [address] Anna Ferro MD [address] [place] [address] 08/06/2024 2:30 PM EDT Office Visit Hematology/Oncology Alexey Dominique [place] [address] [facility] [place] [address] Tori Braxton CRNP [address] [facility] [address] 08/24/2024 7:00 AM EDT Pharmacy Neurology [address] [place] [phone] Lore, Pharmacist [facility]rology [address] [facility] [place] [id number] Scheduled Orders Name Type Priority Associated Diagnoses Orde r Schedule URINE SCREEN, POINT OF CARE (ENTER/EDIT) Point of Care Testing STAT Perform Now for 1 Occurrences starting 02/13/2024 until 02/13/2024 GLUCOSE METER, POINT OF CARE (COMMUNICATION ORDER) Point of Care Testing STAT Perform Now for 1 Occurrences starting 02/13/2024 until 02/13/2024 Scheduled Procedures Name Priority Associated Diagnoses Date/Ti [...] this encounter Medical Devices Implanted Type Area Honing Machine Set Up Operator Device Identifier Shelf Expiration Date Model / Serial / Lot Port Pwr Mri Isp Profile - [id number] Implanted:Qty : 1 on 08/09/2015 by Terrance Curry MD at [place] [facility] [place] Left: Chest CR BARD : PERIPHERAL VASCULAR 05/02/2017 [id number] / / [id number] Description:27 length of cat heter Set Sys [facility] 11-6t 165cm - [id number] Implanted:Qty : 1 on 02/13/2024 by Anita Ha MD at OR [facility] OVESCO ENDOSCOPY [id number] 01/03/2025 100. 10 / / [id number] documented as of this encounter Procedures Procedure Name Priority Date/Time Associated Diagnosis Comments UPPER GI ENDOSCOPY 02/13/2024 11 :29 AM EDT GLUCOSE METER, POINT OF CARE MICHAEL 02/13/2024 10:57 AM EDT documented in this encounter Results * UPPER GI ENDOSCOPY (02/13/2024 11:29 AM EDT) 02/13/2024 11:2 9 AM EDT Narrative Procedure Note Kimberly Figueroa MD - 02/13/2024 11:29 AM EDT [facility] Patient Name: Shaunna Jerome Procedure Date: 02/13/2024 11:29 AMMRN: [id number] Date of : 1990 Admit Type: Outpatient Note Status:Finalized Date of : 1990 Admit Type: Outpatient Age: 33 Room: OR 5 Gender: Female Note Status: Finalized Procedure: Upper GI endoscopy Indications: Enteroenteric fistula Providers: Anita Ha MD (Doctor), Rebecca Anne RN Referring MD: Kimberly Figueroa MD Medicines: General Anesthesia Complications: No immediate complications. Procedure: Pre-Anesthesia Assessment: - Prior to the procedure, a History and Physicalwas performed, and patient medications, allergies and sensitivities werereviewed. The patient's tolerance of previous anesthesia was reviewed. - The risks and benefits of the procedure and thesedation options and risks were discussed with the patient. All questions wereanswered and informed consent was obtained. - Patient identification and proposed procedurewere verified prior to the procedure by the physician and the nurse. The procedure wasverified in the procedure room. - Pre-procedure physical examination revealed nocontraindications to sedation. After obtaining informed consent, the endoscope waspassed under direct vision. All instruments were visually inspected immediatelybefore and after removal from the patient to ensure they are fully intact. Throughoutthe procedure, the patient's blood pressure, pulse, and oxygen saturations weremonitored continuously.The upper GI endoscopy was accomplished without difficulty.The patient tolerated the procedure well. The was introduced through the mouth, andadvanced to the efferent jejunal loop. Findings & Specimens: The examined esophagus was normal. Evidence of a gastric bypass was found. A gastric pouch with a normalsize was found. The gastrojejunal anastomosis was characterized by ulceration. This was traversed. A 8 mm fistula was found in the gastric body. Fulguration to ablatethe lesion by monopolar probe was successful. To close the fistula, one 11/6t OVESCO clip wassuccessfully placed (MR conditional). Impression: - Normal esophagus. - Gastric bypass with a normal-sized pouch.Gastrojejunal anastomosis characterized by ulceration. - Gastrogastric fistula. Closed using an OVESCOclip. - No specimens collected. Recommendation: - Discharge patient to home. - Clear liquid diet for 1 day, then advance astolerated to full liquid diet for 1 day. - No aspirin, ibuprofen, naproxen, or othernon-steroidal anti-inflammatory drugs for 5 days. - PO PPI and Carafate BID. - Repeat upper endoscopy in 2 months to checkhealing. - Return to referring physician. Anita Ha MD 02/13/2024 12:27:38 PM This report has been signed electronically. Estimated Blood Loss: Estimated blood loss: none. Kimberly Figueroa MD GASTRO UPPER * GLUCOSE METER, POINT OF CARE (02/13/2024 10:57 AM EDT) GLUCOSE - POCT 100 70 - 120 mg/dL 02/13/2024 11:00 AM EDT [facility] Blood Whole blood specimen / Unknown 02/13/2024 10:57 AM EDT 02/13/2024 11:00 AM EDT Anita Ha MD LAB POINT OF CARE T EST DOCKED DEVICE UNSOLICITED RESULTS [facility] [address] [place] [address] documented in this encounter Administered Medications Inactive Administered Medications - up to 3 most recent administrations Medication Order MAR Action Action Date Dose Rate Site isolyte-S pH 7.4 infusion Intravenous, at 25 mL/hr, All Patients EXCEPT Dialysis patients Plasma-LYTE 148, isolyte-S, and isolyte-S pH 7.4 are considered equivalent - including for MAR barcode scanning., CONTINUOUS, Starting on Maria Elena 02/13/24 at 1030, Until Maria Elena 02/13/24 at 1822, Pre-Op Continue from Pre-Op 02/13/2024 11:52 AM EDT 25 mL/hr New Bag 02/13/2024 10:27 AM EDT 25 mL/hr 25 mL/hr promethazine (Phenergan) tab 25 mg 25 mg, Oral, ONCE, On Maria Elena 02/13/24 at 1330, For 1 dose, PACU Given 02/13/2024 1:09 PM EDT 25 mg documented in this encounter Active and Recently Administered Medications Times are shown in EDT. Scheduled Medication Order 02/11/2024 02/12/2024 02/13/2024 promethazine (Phenergan) tab 25 mg (COMPLETED) 25 mg, Oral, ONCE, On Maria Elena 02/13/24 at 1330, For 1 dose, PACU 1309 (Given - Provid er: Saravanan Hendrix RN) Continuous Medication Order 02/11/2024 02/12/2024 02/13/2024 isolyte-S pH 7.4 infusion Intravenous, at 25 mL/hr, All Patients EXCEPT Dialysis patients Plasma-LYTE 148, isolyte-S, and isolyte-S pH 7.4 are considered equivalent - including for MAR barcode scanning., CONTINUOUS, Starting on Maria Elena 02/13/24 at 1030, Until Maria Elena 02/13/24 at 1822, Pre-Op 1027 (New Bag - Prov ider: Saravanan Hendrix RN)1152 (Continue from Pre-Op - Provider: Francy Benjamin CRNA)1234 (Anes Intra-Op Fluid - Provider: Francy Benjamin CRNA) documented in this encounter Advance Directives * [...] patient have Health Care Power of Attor obb? No * Full Code Date Activated Date Inactivated Comments 12/03/2011 5:56 AM 12/03/2011 1:07 PM This order r eflects the patients wishes and were consensually agreed upon. Healthcare Agents on File Name Relationship Healthcare Agent Relationshi p Communication Lashanda Justus Mother First Alternate Health Care Agent (per Health Care Power of Supervisor Cell Maintenance document) Care Teams Director Building Relationship Specialty Start Date End Date Kimberly Figueroa MD 200 [facility] [place] [address] PCP - General Internal Medicine 02/21/21 documented as of this encounter
--- OUTSIDE RECORDS SUMMARY | 2024-04-13 04:57 | External Medical Summary | Summary of Care ---
Author Name Unknown Organization [facility] Address [address] [facility] [place] [address] Phone [phone] Care Team Providers Care Cookie Mixer Helper Name Role Phone Kimberly Figueroa MD Primary Care Provider + Reason for Visit * Reason Onset Date Comments Hospital Follow-Up 01/31/2024 Hem/ onc disc harge Encounter Details Date Type Department Care Team (Late st Contact Info) Description 01/31/2024 Telephone Hematology/Oncology Treatment, [place] [address] [place] [address] Tori Braxton CRNP 400 [facility] [place] [address] Hospital Follow-Up (Hem/ onc discharge) Allergies Active Allergy Reactions Criticality Noted Date Comments Cephalexin Hives 01/24/2010 As a small child Clindamycin Hives 12/30/2014 " And bad heartburn" As an adult about age 24 Hydrocodone Medium 12/26/2018 Other reaction(s): Itching Methocarbamol Rash High 06/17/2016 Sulfa Antibiotics Hives 08/05/2006 As a small child Hydrocodone-Acetaminophen Itching 01/01/2014 documented as of this encounter (statuses as of 01/31/2024) Medications Medication Sig Dispensed Refills Start Date [...] Active Topiramate 50 MG Oral Tablet (topAMAX)Indication s:CLIENT SERVICE MANAGER demyelination (HCC) TAKE 1 TABLET BY [...] Rizatriptan Benzoate 10 MG Oral Tablet (Maxalt)Indications :CLIENT SERVICE MANAGER demyelination (HCC) one at onset. May [...] 150 mgIndications:Depo-Provera contraceptive status 150 mg IM [id number] 02/08/2023 07/27/2025 Acti ve documented as of this encounter (statuses as of 01/31/2024) Active Problems Problem Noted Date Diagnosed Date [...] ICD-10 update of inactive term ROCK RESEARCH OTHER*[id number] 11/17/2007 documented as of this encounter (statuses as of 01/31/2024) Resolved Problems Problem Noted Date Diagnosed Date [...] BMI) 08/01/2009 01/01/2014 Overview: Per Obesity Taxonomy CLIENT SERVICE MANAGER demyelination 07/11/2009 09/17/2018 ADVANCE DIRECTIVE INFORMATION [...] as of this encounter (statuses as of 01/31/2024) Immunizations Name Administration Dates Next Due COVID-19 [...] Pneumococcal Polysaccharide PPV23 (Pneumovax) 02/15/2016,01/25/2012 Seasonal Influenza Virus Vac cine, Unspecified Formulation 02/14/2023,01/21/2018,02/05/2017,01/19,02/05/2014,02/12/2013,01/25/2012 ,02/08/2011,02/16/2010 Seasonal Influenza, PF, 6 M & above, IM , (FluLaval or Fluzone) 01/23/2022,01/24/2021,01/20/2020,01/20,01/21/2018,02/05/2017 Seasonal Influenza, Quadriva lent, No Preserve, IM 01/20/2016,02/08/2015 Seasonal Influenza, Trivalen t, (IIV3), PF, (Fluzone) 01/14/2024 Seasonal Influenza, Trivalen t, (IIV3), with Preserv, (Fluzone) 02/05/2014,02/12/2013,01/25/2012,02/08,02/16/2010 TD, Preservative Free 08/18/2020,10/04/2001 TDAP (age 9 [...] Miscellaneous Notes * Telephone Encounter - Yessi Craver RN - 01/31/2024 3:53 PM EDT HEMATOLOGY/ONCOLOGY HOSPITAL DISCHARGE FOLLOW-UP Call placed to patient to follow up after hospital discharge. Dates patient was admitted at [facility]: 01/22/24 to 01/24/24 with a primary diagnosis of GI hemorrhage with melana, hematemesis, upper GI bleed. Currently has no complaints related to her health. All current medications reviewed with patient. Patient verbalizes understanding of regimen. Post discharge hospital visit is scheduled and patient is aware. Scheduling: please add follow up appt with Tori 02/06/24 at 2:30pm. Patient already aware. Thanks! documented in this encounter Plan of Treatment Upcoming Encounters Date Type Department Care Team (Latest Contact Info) Description 10:30 AM EDT Office Visit Allergy/Immuno logy State Michelle [place] [address] [place] [address] Krystal Thomas PA-C [facility] [place] [address] 4 11:56 AM EDT Hospital Encounter OR [facility], Operating Room, [facility] - 4th Floor [address] [place] [address] Anita Ha MD [address] [place] [address] 4 11:56 AM EDT - 4 1:07 PM EDT Surgery OR [facility], Operating Room, [facility] - 4th Floor [address] [place] [address] Anita Ha MD [address] [place] [address] ESOPHAGOGASTRODUODENOSCOPY (EGD), FLEXIBLE, TRANSORAL, DIAGNOSTIC 4 11:30 AM EDT Nurse Only Ancillary State Michelle Gill [address] [place] [address] Nurse, Int Med 200 [facility] [place] [address] 4 3:20 PM EST Office Visit General Internal Medicine [facility] [address] [place] [address] Kimberly Figueroa MD 200 [facility] [place] [address] 4 10:00 AM EST Telemedicine Dermatology, [facility] [place] [address] [facility] [place] [address] Wb, Pharmacist Dermatology [address] [facility] [address] [facility] [place] [address] 4 10:00 AM EST Hem/Onc Treatment Hematology/Onc ology Treatment, [place] [address] [place] [phone] Catina, Chair 3 Hem Onc [facility] 200 [facility] [place] [address] 5 2:30 PM EST Office Visit Otolaryngology [facility] [address] [facility] [place] [address] Anna Ferro MD 132 [facility] [place] [address] 5 7:00 AM EDT Pharmacy Neurology [address] [place] [address] Lore, Pharmacist Neurology 100 [facility] [place] [id number] Scheduled Procedures Name Priority Associated Diagnoses Date/Ti [...] this encounter Medical Devices Implanted Type Area Protocol Manager Device Identifier Shelf Expiration Date Model / Serial / Lot Port Pwr Mri Isp Profile - [id number] Implanted:Qty: 1 on 08/09/2015 by Terrance Curry MD at [facility] Left: Chest CR BARD : PERIPHERAL VASCULAR 05/02/2017 [id number] / / [id number] Description:27 length of cat heter documented as of this encounter Advance Directives [...] Care Agent (per Health Care Power of Flanging Machine Operator document) Care Teams Cookie Mixer Helper Relationship Specialty Start Date End Date Kimberly Figueroa MD 200 [facility] [place] [address] PCP - General Internal Medicine 02/21/21 documented as of this encounter
--- OUTSIDE RECORDS SUMMARY | 2024-04-13 04:57 | External Medical Summary | Summary of Care ---
Author Name Unknown Organization [facility] Address [address] [facility] [place] [address] Phone [phone] Care Team Providers Care Ear Nose Throat Surgeon Name Role Phone Kimberly Figueroa MD Primary Care Provider + Reason for Visit * Reason Onset Date Comments Hospital Follow-Up Hospital Follow-Up 01/30/2024 Encounter Details Date Type Department Care Team (Late st Contact Info) Description 01/30/2024 2:20 PM EDT Office Visit General Internal Medicine [facility] [place] [address] [place] [address] Kimberly Figueroa MD 200 [facility] [place] [address] Iron deficiency anemia, unspecified iron deficiency anemia [...] as of this encounter (statuses as of 01/30/2024) Medications Medication Sig Dispensed Refills Start Date [...] Active Topiramate 50 MG Oral Tablet (topAMAX)Indicatio ns:PRODUCT EXPERT demyelination (HCC) TAKE 1 TABLET BY MOUTH [...] Rizatriptan Benzoate 10 MG Oral Tablet (Maxalt)Indication s:PRODUCT EXPERT demyelination (HCC) one at onset. May repeat [...] for 2 weeks 60 g 1 08/26/2023 Discontinu ed(End of Procedure) Hospital, Clinic, or Other Facility Administered Medication Ordered Dose Route Frequency Start Date End Date Status medroxyPROGESTERone acetate (Depo-Provera) inj BRYANNA 150 mgIndications:Depo-Provera contraceptive status 150 mg IM [id number] 02/08/2023 07/27/2025 Acti ve documented as of this encounter (statuses as of 01/30/2024) Active Problems Problem Noted Date Diagnosed Date [...] ICD-10 update of inactive term ROCK RESEARCH OTHER*[id number] 11/17/2007 documented as of this encounter (statuses as of 01/30/2024) Resolved Problems Problem Noted Date Diagnosed Date [...] BMI) 08/01/2009 01/01/2014 Overview: Per Obesity Taxonomy PRODUCT EXPERT demyelination 07/11/2009 09/17/2018 ADVANCE DIRECTIVE INFORMATION 07/03/2009 [...] as of this encounter (statuses as of 01/30/2024) Immunizations Name Administration Dates Next Due COVID-19 [...] No 05/20/2023 Does the household have a [facility] source of income? (Household - for [...] that time and she was seen at [facility] with GI symptoms. She had significant [...] of hematemesis. Patient had a procedure at [facility] on January 16. She doeshave history of [...] bleed Pt has been followed up by pillowcase cutter and specialists. Later on 01/22/2024 patient was admitted in [facility] with GI bleed with melena, hematemesis. HOSPITAL [...] - 11.1 fL 9.5 Resulting Agency [facility] [place] 56-02 Specimen Collected: 01/30/24 13:51 Last Resulted: 01/30/24 14:13 Pt has repeat upper endoscopy with GI on 02/13/24. 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 Likes-time w/dog--2 boxer,Romeo Richter. Has niece--helps watch her. [facility] [place] INFORMATION ENVIRONMENTAL HISTORY: Type of Home: One Story Type of Heating System: Forced air, [place] and [place] Air Conditioning: Yes Patient's bedroom and Bedrooms [...] Stability Do you currently live in a usp or have no steady place to sleep [...] CMA - 01/30/2024 2:28 PM EDT Shaunna Jeroem presents for hospital follow up. Medications & HM reviewed. She was admitted to [facility] from 01/21-01/23 for a GI bleed, was vomiting blood. Had upper GI endoscopy completed. She is doing well with omeprazole and has not had any vomiting episodes since. She would like to discuss need for RSV. documented in this encounter Plan of Treatment Upcoming Encounters Date Type Department Care Team (Latest Contact Info) Description 4 10:30 AM EDT Office Visit Allergy/Immuno logy State Michelle Gill [address] [place] [address] Krystal Thomas PA-C 200 [facility] [place] [address] 4 8:41 AM EDT Hospital Encounter OR [facility], Operating Room, [facility] - 4th Floor [address] [place] [address] Anita Ha MD [address] [place] [address] 4 8:41 AM EDT - 4 9:52 AM EDT Surgery OR [facility], Operating Room, [facility] - 4th Floor [address] [place] [address] Anita Ha MD [address] [place] [address] ESOPHAGOGASTRODUODENOSCOPY (EGD), FLEXIBLE, TRANSORAL, DIAGNOSTIC 4 11:30 AM EDT Nurse Only Ancillary State Michelle Gill [address] [place] [address] Nurse, Int Med [address] [place] [address] 4 3:20 PM EST Office Visit General Internal Medicine [facility] [address] [place] [address] Kimberly Figueroa MD [address] [place] [address] 4 10:00 AM EST Telemedicine Dermatology, Katarina Santos [address] [facility] [place] [address] Wb, Pharmacist Dermatology E Mtn [facility] [address] [facility] [place] [address] 4 10:00 AM EST Hem/Onc Treatment Hematology/Onc ology Treatment, [place] [address] [place] [phone] Catina, Chair 3 Hem Onc [facility] 200 [facility] [place] [address] 5 2:30 PM EST Office Visit Otolaryngology [facility] [address] [facility] [place] [address] Anna Ferro MD [address] 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 8:41 AM EDT ESOPHAGOGASTRODUODENOSCOPY ( EGD), FLEXIBLE, TRANSORAL, [...] this encounter Medical Devices Implanted Type Area Manager Product Support Device Identifier Shelf Expiration Date Model / Serial / Lot Port Pwr Mri Isp Profile - [id number] Implanted:Qty: 1 on 08/09/2015 by Terrance Curry MD at OR [facility] Left: Chest CR BARD : PERIPHERAL VASCULAR 05/02/2017 [id number] / / [id number] Description:27 length of cat heter documented as of this encounter Visit Diagnoses Diagnosis Iron deficiency anemia, unspecified iron deficiency anemia type- Primary Gastrointestinal hemorrhage with hematemesis Mild persistent asthma without complication Unspecified asthma Hospital discharge follow-up Other follow-up examination 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
--- OUTSIDE RECORDS SUMMARY | 2024-04-13 04:57 | External Medical Summary | Summary of Care ---
Author Name Unknown Organization [facility] Address [address] [facility] [place] [address] Phone [phone] Care Team Providers Care Leave Coordinator Name Role Phone Kimberly Figueroa MD Primary Care Provider + Reason for Visit * Reason Onset Date Comments Advice 01/07/2024 Education 01/07/2024 Forms Request 01/07/2024 Encounter Details Date Type Department Care Team (Late st Contact Info) Description 01/07/2024 Telephone General Internal Medicine [facility] [place] 200 [facility] [place] [address] Kimberly Fig[facility]eroa MD 200 [facility] [address] Advice; Education; Forms Request Allergies Active Allergy Reactions Criticality Noted Date Comments Cephalexin Hives 01/24/2010 As a small child Clindamycin Hives 12/30/2014 " And bad heartburn" As an adult about age 24 Hydrocodone Medium 12/26/2018 Other reaction(s): Itching Methocarbamol Rash High 06/17/2016 Sulfa Antibiotics Hives 08/05/2006 As a small child Hydrocodone-Acetaminophen Itching 01/01/2014 documented as of this encounter (statuses as of 01/29/2024) Medications Medication Sig Dispensed Refills Start Date [...] Active Topiramate 50 MG Oral Tablet (topAMAX)Indicati ons:TIGHT COOPER demyelination (HCC) TAKE 1 TABLET BY MOUTH [...] Rizatriptan Benzoate 10 MG Oral Tablet (Maxalt)Indicatio ns:TIGHT COOPER demyelination (HCC) one at onset. May repeat two hour if neeed 9 Tablet 5 3 Active Triamcinolone Acetonide 0.1 % External Cream (Aristocort) Apply topically to affected area 2 times a day. Apply to rash areas. 30 g 4 Active Fluocinonide 0.05 % External OintmentIndicatio ns:Rash and nonspecific skin eruption Apply to rash behind knees, elbows, trunk twice a day for 2 weeks 60 g 1 4 Active Albuterol Sulfate HFA 108 (90 [...] weeks. 30 g 3 4 024 Discontinued Dupixent 300 MG/2ML Subcutaneous Solution Pen-injector (Dupilumab)Indica [...] this for 10 days. 20 Tablet 4 024 Discontinued(Pa tient preference/disc ontinuation) methylPREDNISolon e 4 [...] 150 mgIndications:Depo-Provera contraceptive status 150 mg IM [id number] 02/08/2023 07/27/2025 Acti ve documented as of this encounter (statuses as of 01/29/2024) Active Problems Problem Noted Date Diagnosed Date [...] ICD-10 update of inactive term ROCK RESEARCH OTHER*[id number] 11/17/2007 documented as of this encounter (statuses as of 01/29/2024) Resolved Problems Problem Noted Date Diagnosed Date [...] BMI) 08/01/2009 01/01/2014 Overview: Per Obesity Taxonomy TIGHT COOPER demyelination 07/11/2009 09/17/2018 ADVANCE DIRECTIVE INFORMATION 07/03/2009 [...] as of this encounter (statuses as of 01/29/2024) Immunizations Name Administration Dates Next Due COVID-19 [...] 2:24 PM EDT Attempted to contact patient/patient representative phlebotomy services regarding History and Physical requirement for patient's imaging scheduled with anesthesia on 01/15. Unable to contact patient or representative phlebotomy services at this time. Message left to return call to [facility] at [phone] during business hours: Saturday through Saturday 8:00 AM to 4:00 PM, closed weekends and holidays. * Telephone Encounter - Prema Rosales OSA - 01/07/2024 11:35 AM EDT Myriam with [facility] called and said that she will be [...] for the form. Please fax back to [phone] Attention; Myriam documented in this encounter Plan of Treatment Upcoming Encounters Date Type Department Care Team (Latest Contact Info) Description 1:15 PM EDT Nurse Only Hematology/Onc ology Treatment, [place] 200 [facility] [place] [address] Catina, Chair 1 Hem Onc [facility] 200 [facility] [place] [address] 4 2:20 PM EDT Office Visit General Internal Medicine [facility] [place] [address] [place] [address] Kimberly Figueroa MD [address] [place] [address] 4 10:30 AM EDT Office Visit Allergy/Immuno logy [facility] [place] [address] [place] [address] Krystal Thomas PA-C 200 [facility] [place] [address] 4 8:41 AM EDT Hospital Encounter OR [facility], Operating Room, [facility] - 4th Floor [address] [place] [phone] Anita Ha MD [address] [place] [address] 4 8:41 AM EDT - 4 9:52 AM EDT Surgery OR [facility], Operating Room, [facility] - 4th Floor [address] [place] [address] Anita Ha MD [address] [place] [address] ESOPHAGOGASTRODUODENOSCOPY (EGD), FLEXIBLE, TRANSORAL, DIAGNOSTIC 4 11:30 AM EDT Nurse Only Ancillary [facility] [place] [address] [place] [address] Nurse, Int Med [address] [place] [address] 4 3:20 PM EST Office Visit General Internal Medicine [facility] [address] [place] [address] Kimberly Figueroa MD [address] [place] [address] 4 10:00 AM EST Telemedicine Dermatology, Katarina Santos [address] [facility] [place] [address] Wb, Pharmacist Dermatology E Mtn [facility] [address] [facility] [place] [address] 4 10:00 AM EST Hem/Onc Treatment Hematology/Onc ology Treatment, [place] [address] [place] [address] Catina, Chair 3 Hem Onc [facility] 200 [facility] [place] [address] 5 2:30 PM EST Office Visit Otol[facility] 132 [facility] [place] [address] Anna Ferro MD 132 [facility] [place] [address] 5 7:00 AM EDT Pharmacy Neurology [address] [place] [address] Lore, Pharmacist Neurology 100 [facility] [place] [address] Scheduled Procedures Name Priority Associated Diagnoses Date/Ti [...] this encounter Medical Devices Implanted Type Area Child Care Group Leader Device Identifier Shelf Expiration Date Model / Serial / Lot Port Pwr Mri Isp Profile - [id number] Implanted:Qty: 1 on 08/09/2015 by Terrance Curry MD at [place] [facility] Left: Chest CR BARD : PERIPHERAL VASCULAR 05/02/2017 [id number] / / [id number] Description:27 length of cat heter Explanted Type Area Child Care Group Leader Device Identifier Shelf Expiration Date Model / Serial / Lot Stent Axios [id number] - [id number] Implanted:Qty: 1 on 03/19/2023 by Anita Ha MD at OR [facility] Explanted:Qty: 1 on 01/17/2024 by Anita Ha MD at OR [facility] [place] [employer] : ENDOSCOPY [id number] 12/19/2023 [id number] / / [id number] documented as of this encounter Advance Directives [...] Care Agent (per Health Care Power of Artificial Flowers Supervisor document) Care Teams Leave Coordinator Relationship Specialty Start Date End Date Kimberly Figueroa MD 200 [facility] [place] [address] PCP - General Internal Medicine 02/21/21 documented as of this encounter
--- OUTSIDE RECORDS SUMMARY | 2024-04-13 04:57 | External Medical Summary | Summary of Care ---
Author Name Unknown Organization [facility] Address [address] [place] [address] Phone [phone] Care Team Providers Care Customer Care Agent Name Role Phone Kimberly Figueroa MD Primary Care Provider + Encounter Details Date Type Department Care Team (Late st Contact Info) Description 02/06/2024 12:45 PM EDT Scheduled Telephone Care Coordination and Integration [address], [place] [id number] [facility] [address] [place] [address] Allergies Active Allergy Reactions Criticality Noted Date Comments Cephalexin Hives 01/24/2010 As a small child Clindamycin Hives 12/30/2014 " And bad heartburn" As an adult about age 24 Hydrocodone Medium 12/26/2018 Other reaction(s): Itching Methocarbamol Rash High 06/17/2016 Sulfa Antibiotics Hives 08/05/2006 As a small child Hydrocodone-Acetaminophen Itching 01/01/2014 documented as of this encounter (statuses as of 02/06/2024) Medications Medication Sig Dispensed Refills Start Date [...] Active Topiramate 50 MG Oral Tablet (topAMAX)Indication s:STRINGING MACHINE OPERATOR demyelination (HCC) TAKE 1 TABLET [...] Rizatriptan Benzoate 10 MG Oral Tablet (Maxalt)Indications :STRINGING MACHINE OPERATOR demyelination (HCC) one at onset. [...] hydrOXYzine Pamoate 25 MG Oral Capsule (Vistaril)Indicatio ns:AUDLEIA (generalized anxiety disorder) Take 1 Capsule by [...] 150 mgIndications:Depo-Provera contraceptive status 150 mg IM [id number] 02/08/2023 07/27/2025 Acti ve documented as of this encounter (statuses as of 02/06/2024) Active Problems Problem Noted Date Diagnosed Date [...] ICD-10 update of inactive term ROCK RESEARCH OTHER*[id number] 11/17/2007 documented as of this encounter (statuses as of 02/06/2024) Resolved Problems Problem Noted Date Diagnosed Date [...] BMI) 08/01/2009 01/01/2014 Overview: Per Obesity Taxonomy STRINGING MACHINE OPERATOR demyelination 07/11/2009 09/17/2018 ADVANCE DIRECTIVE [...] as of this encounter (statuses as of 02/06/2024) Immunizations Name Administration Dates Next Due COVID-19 [...] as of this encounter Progress Notes * [facility] - 02/06/2024 12:00 PM EDT Telemedicine visit: No [facility] (CARLOS) documentation: CHW nick call per RUSSELL Traore CM No answer, left requesting call back to documented in this encounter Plan of Treatment Upcoming Encounters Date Type Department Care Team (Latest Contact Info) Description 2:30 PM EDT Office Visit Hematology/Onc ology [facility] Catina [place] 200 [facility] [place] [address] Tori Braxton CRNP [address] [facility] [place] [address] 4 11:56 AM EDT Hospital Encounter OR [facility], Operating Room, [facility] - 4th Floor [address] [place] [address] Anita Ha MD [address] [place] [address] 4 11:56 AM EDT - 1:07 PM EDT Surgery OR [facility], Operating Room, [facility] - 4th Floor [address] [facility] [place] [phone] Anita Ha MD [address] [place] [address] ESOPHAGOGASTRODUODENOSCOPY (EGD), FLEXIBLE, TRANSORAL, DIAGNOSTIC 4 11:30 AM EDT Nurse Only [facility] Domin[facility] [place] [address] [place] [address] Nurse, Int Med [address] [place] [address] 4 3:20 PM EST Office Visit [facility] [employer] [address] [place] [address] Kimberly Figueroa MD 200 [facility] [place] [address] 4 10:00 AM EST Telemedicine Dermatology, Katarina Santos [address] [facility] [place] [address] Wb, Pharmacist Dermatology [address] [facility] [address] [facility] [place] [address] 4 10:00 AM EST Hem/Onc Treatment Hematology/Onc ology Treatment, [place] [address] [place] [address] Catina, Chair 3 Hem Onc Sc[facility]ery [address] [place] [address] 5 2:30 PM EST Office Visit [facility] [place] [address] Anna Ferro MD [address] [place] [address] 5 7:00 AM EDT Pharmacy Neurology Lore [address] [place] [address] Lore, Pharmacist Neurology [address] [facility] [place] [address] Scheduled Procedures Name Priority Associated Diagnoses Date/Ti va ESOPHAGOGASTRODUODENOSCOPY ( EGD), FLEXIBLE, TRANSORAL, DIAGNOSTIC Gastrogastric [...] this encounter Medical Devices Implanted Type Area Solar Installer Technician Device Identifier Shelf Expiration Date Model / Serial / Lot Port Pwr Mri Isp Profile - [id number] Implanted:Qty: 1 on 08/09/2015 by [facility] Left: Chest CR BARD : PERIPHERAL VASCULAR 05/02/2017 [id number] / / [id number] Description:27 length of cat heter documented as [...] Care Agent (per Health Care Power of Incident Response Consultant document) Care Teams Customer Care Agent Relationship Specialty Start Date End Date Kimberly Figueroa MD 200 [place] [address] PCP - General Internal Medicine 02/21/21 documented as of this encounter
--- OUTSIDE RECORDS SUMMARY | 2024-04-13 04:57 | External Medical Summary | Summary of Care ---
Author Name Unknown Organization [facility] Address [address] [facility] [place] [address] Phone [phone] Care Team Providers Care Container Maker Name Role Phone Kimberly Figueroa MD Primary Care Provider + Reason for Visit * Reason Onset Date Comments Advice 01/31/2024 Education 01/07/2024 Forms Request 01/07/2024 Encounter Details Date Type Department Care Team (Late st Contact Info) Description 01/07/2024 Telephone General Internal Medicine [facility] [place] 200 [facility] [place] [address] Kimberly Figueroa MD [facility] [address] Advice; Education; Forms Request Allergies Active Allergy [...] Active Topiramate 50 MG Oral Tablet (topAMAX)Indicati ons:CHIEF RADIOLOGIC TECHNOLOGIST demyelination (HCC) TAKE 1 TABLET BY MOUTH [...] Rizatriptan Benzoate 10 MG Oral Tablet (Maxalt)Indicatio ns:CHIEF RADIOLOGIC TECHNOLOGIST demyelination (HCC) one at onset. May repeat [...] 150 mgIndications:Depo-Provera contraceptive status 150 mg IM [id number] 02/08/2023 07/27/2025 Acti ve documented as of [...] ICD-10 update of inactive term ROCK RESEARCH OTHER*[id number] 11/17/2007 documented as of this encounter (statuses [...] BMI) 08/01/2009 01/01/2014 Overview: Per Obesity Taxonomy CHIEF RADIOLOGIC TECHNOLOGIST demyelination 07/11/2009 09/17/2018 ADVANCE DIRECTIVE INFORMATION 07/03/2009 [...] encounter Miscellaneous Notes * Telephone Encounter - Cristina Gutierrez, BIANCA - 01/31/2024 8:59 AM EDT Selina from [facility] calling in again to check status of [place] 570 paper work sent to the office 9 for pt. Per Selina the paperwork is time sensitive and she is requesting a return call from the office regarding whether forms have been completed. Call Back Number: [phone] Please Advise. Thank you! * Telephone Encounter - Kimberly Figueroa MD - 01/29/2024 7:46 AM EDT Not seen unless its in orange folder yet to sign in my office. * Telephone Encounter - Shara Briceno LPN - 01/28/2024 1:[address] Figueroa - have you seen any form? * Telephone Encounter - Susu Peguero OSA - 01/27/2024 9:47 AM EDT [facility] [place] [facility] form is needed by 02/21/2024. Please call Selina and let her know if this was received. * Telephone Encounter - Migdalia Levy TECH - 01/09/2024 2:24 PM EDT Attempted to contact patient/patient sales representative printing regarding History and Physical requirement for patient's imaging scheduled with anesthesia on 01/15. Unable to contact patient or sales representative printing at this time. Message left to return call to [facility] at [phone] during business hours: Saturday through Saturday 8:00 AM to 4:00 PM, closed weekends and holidays. * Telephone Encounter - Prema Rosales OSA - 01/07/2024 11:35 AM EDT Myriam with [facility] called and said that she will be [...] for the form. Please fax back to [phone] Attention; Myriam documented in this encounter Plan of Treatment Upcoming Encounters Date Type Department Care Team (Latest Contact Info) Description 4 10:30 AM EDT Office Visit Allergy/Immuno logy [place] Michelle Gill [address] [place] [address] Krystal Thomas PA-C [address] [place] [address] 4 8:41 AM EDT Hospital Encounter OR [facility], Operating Room, [facility] - 4th Floor [address] [place] [address] Anita Ha MD [address] [place] [address] 4 8:41 AM EDT - 9:52 AM EDT Surgery OR [facility], Operating Room, [facility] - 4th Floor [address] [place] [address] Anita Ha MD [address] [place] [address] ESOPHAGOGASTRODUODENOSCOPY (EGD), FLEXIBLE, TRANSORAL, DIAGNOSTIC 4 11:30 AM EDT Nurse Only Ancillary [place] Michelle [place] [address] [place] [address] Nurse, Int Med [address] [place] [address] 4 3:20 PM EST Office Visit General Internal Medicine [facility] [address] [place] [address] Kimberly Figueroa MD [address] [place] [address] 4 10:00 AM EST Telemedicine Dermatology, Katarina Santos [address] [facility] [place] [address] Wb, Pharmacist Dermatology [address] [facility] [address] [facility] [place] [address] 4 10:00 AM EST Hem/Onc Treatment Hematology/Onc ology Treatment, [place] [address] [place] [phone] Catina, Chair 3 Hem Onc [facility] 200 [facility] [place] [address] 5 2:30 PM EST Office Visit Otol[facility]ology [facility] 132 [facility] [place] [address] Anna Ferro MD 132 [facility] [place] [address] 5 7:00 AM EDT Pharmacy Neurology Lore [address] [place] [address] Lore, Pharmacist Neurology 100 [facility] [place] [address] Scheduled Procedures Name Priority Associated Diagnoses Date/Ti [...] this encounter Medical Devices Implanted Type Area Sinter Press Operator Device Identifier Shelf Expiration Date Model / Serial / Lot Port Pwr Mri Isp Profile - [id number] Implanted:Qty: 1 on 08/09/2015 by Terrance Curry MD at OR [facility] Left: Chest CR BARD : PERIPHERAL VASCULAR 05/02/2017 [id number] / / [id number] Description:27 length of cat heter Explanted Type Area Sinter Press Operator Device Identifier Shelf Expiration Date Model / Serial / Lot Stent Axios [id number] - [id number] Implanted:Qty: 1 on 03/19/2023 by Anita Ha MD at OR [facility] Explanted:Qty: 1 on 01/17/2024 by Anita Ha MD at OR [facility] [employer] : ENDOSCOPY [id number] 12/19/2023 [id number] / / [id number] documented as of this encounter Advance Directives [...] Name Relationship Healthcare Agent [facility] p Communication Lashanda Justus Mother First Alternate Health Care Agent (per Health Care Power of Legal Examiner document) Care Teams Container Maker Relationship Specialty Start Date End Date Kimberly Figueroa MD [address] [place] [address] PCP - General Internal Medicine 02/21/21 documented as of this encounter
--- OUTSIDE RECORDS SUMMARY | 2024-04-13 04:57 | External Medical Summary | Summary of Care ---
Author Name Unknown Organization [facility] Address [address] [facility] [place] [address] Phone [phone] Care Team Providers Care Hardwood Floor Refinisher Name Role Phone Kimberly Figueroa MD Primary Care Provider + Reason for Visit * Reason Onset Date Comments Advice 01/31/2024 Education 01/07/2024 Forms Request 01/07/2024 Encounter Details Date Type Department Care Team (Late st Contact Info) Description 01/07/2024 Telephone General Internal Medicine [facility] [place] 200 [facility] [place] [address] Kimberly Figueroa MD 200 [facility] [address] Advice; Education; Forms Request Allergies Active Allergy Reactions Criticality Noted Date Comments Cephalexin Hives 01/24/2010 As a small child Clindamycin Hives 12/30/2014 " And bad heartburn" As an adult about age 24 Hydrocodone Medium 12/26/2018 Other reaction(s): Itching Methocarbamol Rash High 06/17/2016 Sulfa Antibiotics Hives 08/05/2006 As a small child Hydrocodone-Acetaminophen Itching 01/01/2014 documented as of this encounter (statuses as of 02/03/2024) Medications Medication Sig Dispensed Refills Start Date [...] Active Topiramate 50 MG Oral Tablet (topAMAX)Indicati ons:CLIENT SUCCESS MANAGER demyelination (HCC) TAKE 1 TABLET BY [...] Rizatriptan Benzoate 10 MG Oral Tablet (Maxalt)Indicatio ns:CLIENT SUCCESS MANAGER demyelination (HCC) one at onset. May [...] 150 mgIndications:Depo-Provera contraceptive status 150 mg IM [id number] 02/08/2023 07/27/2025 Acti ve documented as of this encounter (statuses as of 02/03/2024) Active Problems Problem Noted Date Diagnosed Date [...] ICD-10 update of inactive term ROCK RESEARCH OTHER*[id number] 11/17/2007 documented as of this encounter (statuses as of 02/03/2024) Resolved Problems Problem Noted Date Diagnosed Date [...] 08/01/2009 01/01/2014 Overview: Per Obesity Taxonomy CLIENT SUCCESS MANAGER demyelination 07/11/2009 09/17/2018 ADVANCE DIRECTIVE INFORMATION [...] as of this encounter (statuses as of 02/03/2024) Immunizations Name Administration Dates Next Due COVID-19 [...] Miscellaneous Notes * Telephone Encounter - Scarlet Sandra, MED ASSIST - 02/03/2024 3:16 PM EDT Physician Certification Form located for patient. Returned call to Selina from [facility] to inform her that we have received the forms. Asking that the forms be faxed back to [phone] when completed and also [phone] as an alternate fax number. Form placed in orange folder for review and signature. * Telephone Encounter - Cristina Gutierrez OSA - 01/31/2024 8:59 AM EDT Selina from [facility] calling in again to check status of MA 570 paper work sent to the office 01.07.24 for pt. Per Selina the paperwork is time sensitive and she is requesting a return call from the office regarding whether forms have been completed. Call Back Number: [phone] Please Advise. Thank you! * Telephone Encounter - Kimberly Figueroa MD - 01/29/2024 7:46 AM EDT Not seen unless its in orange folder yet to sign in my office. * Telephone Encounter - Shara Briceno LPN - 01/28/2024 1:[address] Figueroa - have you seen any form? * Telephone Encounter - Susu Peguero OSA - 01/27/2024 9:47 AM EDT Selina, [facility] [place] 570 form is needed by 02/21/2024. Please call Selina and let her know if this was received. * Telephone Encounter - Migdalia Levy TECH - 01/09/2024 2:24 PM EDT Attempted to contact patient/patient commissary representative regarding History and Physical requirement for patient's imaging scheduled with anesthesia on 01/15. Unable to contact patient or commissary representative at this time. Message left to return call to [facility] at [phone] during business hours: Saturday through Saturday 8:00 AM to 4:00 PM, closed weekends and holidays. * Telephone Encounter - Prema Rosales OSA - 01/07/2024 11:35 AM EDT Myriam with [facility] called and said that she will be [...] for the form. Please fax back to [phone] Attention; Myriam documented in this encounter Plan of Treatment Upcoming Encounters Date Type Department Care Team (Latest Contact Info) Description 2:30 PM EDT Office Visit Hematology/Onc ology [facility] [place] [facility] [phone] Tori Braxton CRNP 400 [place] [address] 4 11:56 AM EDT Hospital Encounter OR [facility], Operating Room, [facility] - 4th Floor 400 [place] [phone] Anita Ha MD 132 [place] [address] 11:56 AM EDT - 1:07 PM EDT Surgery OR [facility], Operating Room, [facility] - 4th Floor 400 [place] [phone] Anita Ha MD [address] [address] ESOPHAGOGASTRODUODENOSCOPY (EGD), FLEXIBLE, TRANSORAL, DIAGNOSTIC 4 11:30 AM EDT Nurse Only Ancillary [facility] [place] [address] [place] [address] Nurse, Int Med 200 [facility] [place] [address] 4 3:20 PM EST Office Visit General Internal Medicine [facility] [address] [place] [address] Kimberly Figueroa MD 200 [facility] [place] [address] 4 10:00 AM EST Telemedicine Dermatology, [facility] [place] [address] [facility] [place] [address] W[place], Pharmacist Dermatology [address] [facility] [place] [address] 4 10:00 AM EST Hem/Onc Treatment Hematology/Onc ology Treatment, [place] [address] [place] [address] Catina, Chair 3 Hem Onc [facility] 200 [facility] [place] [place] [address] 5 2:30 PM EST Office Visit Otolaryngology [facility] [address] [place] [address] Anna Ferro MD [address] [place] [address] 5 7:00 AM EDT Pharmacy Neurology Lore [address] [place] [address] [place], Pharmacist Neurology [address] [place] [address] Scheduled Procedures Name Priority Associated Diagnoses Date/Ti [...] this encounter Medical Devices Implanted Type Area Domestic Technician Device Identifier Shelf Expiration Date Model / Serial / Lot Port Pwr Mri Isp Profile - [id number] Implanted:Qty: 1 on 08/09/2015 by Terrance Curry MD at [place] [facility] Left: Chest CR BARD : PERIPHERAL VASCULAR 05/02/2017 [id number] / / [id number] Description:27 length of cat heter Explanted Type Area Domestic Technician Device Identifier Shelf Expiration Date Model / Serial / Lot Stent Axios [id number] - [id number] Implanted:Qty: 1 on 03/19/2023 by Anita Ha MD at OR [facility] Explanted:Qty: 1 on 01/17/2024 by Anita Ha MD at OR [facility] [employer] : ENDOSCOPY [id number] 12/19/2023 [id number] / / [id number] documented as of this encounter Advance Directives [...] Care Agent (per Health Care Power of Cancer Program Consultant document) Care Teams Hardwood Floor Refinisher Relationship Specialty Start Date End Date Kimberly Figueroa MD 200 [place] [address] PCP - General Internal Medicine 02/21/21 documented as of this encounter
--- OUTSIDE RECORDS SUMMARY | 2024-04-13 04:57 | External Medical Summary ---
Author Name Unknown Address Unknown Organization K09:[facility] [place] [address] Laboratory Report Ordering Provider Test Date Status DARRYL ARTIS 01/30/2024 13:51:54 Final Discharge Order Observation Date Value Abnormality Reference (Units ) Status WBC, Total 01/30/2024 13:51:54 5.21 4.00-10.8 0 (K/uL) Final RBC 01/30/2024 13:51:54 2.62 3.85-5.15 (M/uL) Final Hemoglobin 01/30/2024 13:51:54 8.9 Below low normal 12 .0-15.3 (g/dL) Final HCT 01/30/2024 13:51:54 27.1 Below low normal 36. 0-45.2 (%) Final MCV 01/30/2024 13:51:54 103.4 81.5-97.5 (fL) Final MCH 01/30/2024 13:51:54 34.0 27.0-34.0 (pg) Final MCHC 01/30/2024 13:51:54 32.8 32.0-36.0 (g/dL) Final RDW 01/30/2024 13:51:54 14.1 11.5-15.5 (%) Final Platelets 01/30/2024 13:51:54 412 Above high normal 14 0-400 (K/uL) Final MPV 01/30/2024 13:51:54 9.5 6.6-11.1 ( fL) Final Performing Location [facility] [place] [address]
--- OUTSIDE RECORDS SUMMARY | 2024-04-13 04:57 | External Medical Summary | Summary of Care ---
Author Name Unknown Organization [facility] Address [address] [facility] [place] [address] Phone [phone] Care Team Providers Care Camera Machinist Name Role Phone Kimberly Figueroa MD Primary Care Provider + Reason for Visit * Reason Comments Procedure Port flush/lab draw Encounter Details Date Type Department Care Team (Late st Contact Info) Description 01/30/2024 1:15 PM EDT Nurse Only Hematology/Oncology Treatment, [address] [phone] [place], Chair 1 Hem Onc [address] [address] Procedure (Port flush/lab draw) Allergies Active Allergy [...] Active Topiramate 50 MG Oral Tablet (topAMAX)Indicatio ns:TITRATOR demyelination (HCC) TAKE 1 TABLET BY MOUTH [...] Rizatriptan Benzoate 10 MG Oral Tablet (Maxalt)Indication s:TITRATOR demyelination (HCC) one at onset. May repeat [...] 1 08/26/2023 4 Discontinu ed(End of Procedure) Hospital, Clinic, or Other Facility Administered Medication Ordered Dose Route Frequency Start Date End Date Status medroxyPROGESTERone acetate (Depo-Provera) inj BRYANNA 150 mgIndications:Depo-Provera contraceptive status 150 mg IM [id number] 02/08/2023 07/27/2025 Acti ve documented as of [...] ICD-10 update of inactive term ROCK RESEARCH OTHER*[id number] 11/17/2007 documented as of this encounter (statuses [...] BMI) 08/01/2009 01/01/2014 Overview: Per Obesity Taxonomy TITRATOR demyelination 07/11/2009 09/17/2018 ADVANCE DIRECTIVE INFORMATION 07/03/2009 [...] condition, tolerated well documented in this encounter Plan of Treatment Upcoming Encounters Date Type Department Care Team (Latest Contact Info) Description 10:30 AM EDT Office Visit Allergy/Immuno logy [place] Michelle Gill [address] [place] [address] Krystal Thomas PA-C [address] [place] [address] 4 8:41 AM EDT Hospital Encounter [facility], Operating Room, [facility] - 4th Floor [address] [place] [address] Anita Ha MD [address] [place] [address] 4 8:41 AM EDT - 4 9:52 AM EDT Surgery [facility], Operating Room, [facility] - 4th Floor [address] [place] [phone] Anita Ha MD [address] [place] [address] ESOPHAGOGASTRODUODENOSCOPY (EGD), FLEXIBLE, TRANSORAL, DIAGNOSTIC 4 11:30 AM EDT Nurse Only Ancillary [facility] [place] 200 [facility] [place] [address] Nurse, Int Med 200 [facility] [place] [address] 4 3:20 PM EST Office Visit General Internal Medicine [facility] [place] 200 [facility] [place] [address] Kimberly Figueroa MD 200 [facility] [place] [address] 4 10:00 AM EST Telemedicine Dermatology, Katarina Santos [address] [facility] [place] [address] [place], Pharmacist Dermatology E Mtn [facility] [address] [facility] [place] [address] 4 10:00 AM EST Hem/Onc Treatment Hematology/Onc ology Treatment, [place] [address] [facility] [place] [phone] Catina, Chair 3 Hem Onc [facility] 200 [facility] [place] [address] 5 2:30 PM EST Office Visit Otolaryngology [facility] 132 [place] [address] Anna Ferro MD [address] [place] [address] 7:00 AM EDT Pharmacy Neurology L[address] [place] [address] Lore, Pharmacist Neurology 100 [facility] [place] [address] Scheduled Procedures Name [...] this encounter Medical Devices Implanted Type Area Liquid Waste Treatment Plant Operator Device Identifier Shelf Expiration Date Model / Serial / Lot Port Pwr Mri Isp Profile - [id number] Implanted:Qty: 1 on 08/09/2015 by Terrance Curry [place] [facility] [place]: Chest CR BARD : PERIPHERAL VASCULAR 05/02/2017 [id number] / / [id number] Description:27 length of cat heter documented as of this encounter Procedures Procedure Name Priority Date/Time Associated Diagnosis Comments CBC Routine 01/30/2024 1:51 PM EDT Gastrointestinal hemorrhage with melena Hematemesis with nausea documented in this encounter Results * (ABNORMAL) CBC (01/30/2024 1:51 PM EDT) WBC 5.21 4.00 - 10.80 K/uL 01/30/2024 2:13 PM EDT [place] [address] RBC 2.62 3.85 - 5.15 M/uL 01/30/2024 2:13 PM EDT [place] [address] HGB 8.9(L) 12.0 - 15.3 g/dL 01/30/2024 2:13 PM EDT [place] [address] HCT 27.1(L) 36.0 - 45.2 % 01/30/2024 2:13 PM EDT [place] [address] MCV 103.4 81.5 - 97.5 fL 01/30/2024 2:13 PM EDT [place] [address] MCH 34.0 27.0 - 34.0 pg 01/30/2024 2:13 PM EDT [place] [address] MCHC 32.8 32.0 - 36.0 g/dL 01/30/2024 2:13 PM EDT [address] RDW 14.1 11.5 - 15.5 % 01/30/2024 2:13 PM EDT [address] PLT 412(H) 140 - 400 K/uL 01/30/2024 2:13 PM EDT [address] MPV 9.5 6.6 - 11.1 fL 01/30/2024 2:13 PM EDT [facility] 56 Blood Venous blood specimen / Unknown Venipuncture / Unknown 01/30/2024 1:51 PM EDT 01/30/2024 2:03 PM EDT Vikas Royal MD LAB BLOOD ORD ERABLES [place] [address] 200 [place] [address] documented in this encounter Visit Diagnoses Diagnosis Iron deficiency anemia, unspecified iron deficiency anemia type- Primary Gastrointestinal hemorrhage with melena Hematemesis with nausea B12 deficiency Other B-complex deficiencies Encounter for central line care Fitting and adjustment of vascular catheter 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 Given 01/30/2024 2:11 PM EDT 500 Units sodium chloride 0.9 % flush central line 10 mL 10 mL, IV Push, PRN Other, IV Flush, Starting on Maria Elena 01/30/24 at 1408, Until Sat01/31/24 at 1407, For 24 hours, Do not flush if lock, PICC, or central line not in place; IV infusing or unable to flush. Given 01/30/2024 2:11 PM EDT 10 mL Inactive Administered Medications - up [...] Agents on File Name Relationship Healthcare Agent [facility] p Communication Lashanda Justus Mother First Alternate Health Care Agent (per Health Care Power of Photograph Developer document) Care Teams Camera Machinist Relationship Specialty Start Date End Date Kimberly Figueroa MD 200 [facility] [place] [address] PCP - General Internal Medicine 02/21/21 documented as of this encounter
--- OUTSIDE RECORDS SUMMARY | 2024-04-13 04:57 | External Medical Summary | Summary of Care ---
Author Name Unknown Organization [facility] Address [address] [facility] [place] [address] Phone [phone] Care Team Providers Care Ground Surveillance Systems Operator Name Role Phone Kimberly Figueroa MD Primary Care Provider + Reason for Visit * Reason Onset Date Comments Hospital Follow-Up 01/31/2024 Hem/ onc disc harge Encounter Details Date Type Department Care Team (Late st Contact Info) Description 01/31/2024 Telephone Hematology/Oncology Treatment, [place] [address] [place] [address] Tori Braxton CRNP 400 [facility] [place] [address] Hospital Follow-Up (Hem/ onc discharge) [...] Active Topiramate 50 MG Oral Tablet (topAMAX)Indication s:VEHICLE MAINTENANCE SUPERVISOR demyelination (HCC) TAKE 1 TABLET BY [...] Rizatriptan Benzoate 10 MG Oral Tablet (Maxalt)Indications :VEHICLE MAINTENANCE SUPERVISOR demyelination (HCC) one at onset. May [...] 150 mgIndications:Depo-Provera contraceptive status 150 mg IM [id number] 02/08/2023 07/27/2025 Acti ve documented as of [...] ICD-10 update of inactive term ROCK RESEARCH OTHER*[id number] 11/17/2007 documented as of this encounter (statuses [...] BMI) 08/01/2009 01/01/2014 Overview: Per Obesity Taxonomy VEHICLE MAINTENANCE SUPERVISOR demyelination 07/11/2009 09/17/2018 ADVANCE DIRECTIVE INFORMATION [...] Telephone Encounter - Pamela Montes OSA - 02/03/2024 8:06 AM EDT Apt is scheduled per note below * Telephone Encounter - Yessi Carver RN - 01/31/2024 3:53 PM EDT HEMATOLOGY/ONCOLOGY HOSPITAL DISCHARGE FOLLOW-UP Call placed to patient to follow up after hospital discharge. Dates patient was admitted at [facility]: 01/22/24 to 01/24/24 with a primary diagnosis [...] Care Team (Latest Contact Info) Description 4 2:30 PM EDT Office Visit Hematology/Onc ology [facility] [place] [address] [place] [phone] Tori Braxton CRNP [address] [place] [address] 4 11:56 AM EDT Hospital Encounter OR [facility], Operating Room, [facility] - 4th Floor [address] [place] [address] Anita Ha MD [address] [place] [address] 4 11:56 AM EDT - 4 1:07 PM EDT Surgery OR [facility], Operating Room, [facility] - 4th Floor [address] [place] [address] Anita Lord MD [address] [place] [address] ESOPHAGOGASTRODUODENOSCOPY (EGD), FLEXIBLE, TRANSORAL, DIAGNOSTIC 4 11:30 AM EDT Nurse Only Ancillary [facility] [address] [place] [address] Nurse, Int Med [address] [place] [address] 4 3:20 PM EST Office Visit General Internal Medicine [facility] [address] [place] [address] Kimberly Figueroa MD 200 [facility] [place] [address] 4 10:00 AM EST Telemedicine Dermatology, [place] [address] [facility] [place] [address] [place], Pharmacist Dermatology E Ctn [facility] [address] [facility] [place] [address] 4 10:00 AM EST Hem/Onc Treatment Hematology/Onc ology Treatment, [place] [address] [place], [place] [address] Catina, Chair 3 Hem Onc [facility] 200 [facility] [place] [place] [address] 5 2:30 PM EST Office Visit Otolaryngology [facility] [address] [place] [address] Anna Ferro MD [address] [place] [address] 5 7:00 AM EDT Pharmacy Neurology Lore [address] [place] [phone] Lore, Pharmacist Neurology 100 [place] [address] Scheduled Procedures Name Priority Associated Diagnoses Date/Ti [...] this encounter Medical Devices Implanted Type Area Store Associate Device Identifier Shelf Expiration Date Model / Serial / Lot Port Pwr Mri Isp Profile - [id number] Implanted:Qty: 1 on 08/09/2015 by Terrance Curry MD at OR [facility] Left: Chest CR BARD : PERIPHERAL VASCULAR 05/02/2017 [id number] / / [id number] Description:27 length of cat heter documented as [...] Care Agent (per Health Care Power of Subway Train Operator document) Care Teams Ground Surveillance Systems Operator Relationship Specialty Start Date End Date Kimberly Figueroa MD [address] [place] [address] PCP - General Internal Medicine 02/21/21 documented as of this encounter
--- OUTSIDE RECORDS SUMMARY | 2024-04-13 04:58 | External Medical Summary | Summary of Care ---
Author Name Unknown Organization [facility] Address [address] [facility] [place] [address] Phone [phone] Care Team Providers Care Coin Machine Collector Supervisor Name Role Phone Kimberly Figueroa MD Primary Care Provider + Reason for Visit * Reason Onset Date Comments Appointment 01/27/2024 Encounter Details Date Type Department Care Team (Late st Contact Info) Description 01/27/2024 Telephone General Internal Medicine [facility] 200 [facility] [place] [address] Kimberly Figueroa MD 200 [facility] [place] [address] Appointment Allergies Active Allergy Reactions Criticality Noted Date Comments Cephalexin Hives 01/24/2010 As a small child Clindamycin Hives 12/30/2014 " And bad heartburn" As an adult about age 24 Hydrocodone Medium 12/26/2018 Other reaction(s): Itching Methocarbamol Rash High 06/17/2016 Sulfa Antibiotics Hives 08/05/2006 As a small child Hydrocodone-Acetaminophen Itching 01/01/2014 documented as of this encounter (statuses as of 01/27/2024) Medications Medication Sig Dispensed Refills Start Date [...] Active Topiramate 50 MG Oral Tablet (topAMAX)Indication s:MECHANICAL DOOR REPAIRER demyelination (HCC) TAKE 1 TABLET BY MOUTH [...] Rizatriptan Benzoate 10 MG Oral Tablet (Maxalt)Indications :MECHANICAL DOOR REPAIRER demyelination (HCC) one at onset. May repeat two hour if neeed 9 Tablet 5 02/19/2023 Active Triamcinolone Acetonide 0.1 % External Cream (Aristocort) Apply topically to affected area 2 times a day. Apply to rash areas. 30 g 07/23/2023 Active Fluocinonide 0.05 % External OintmentIndications :Rash and nonspecific skin eruption Apply to rash behind knees, elbows, trunk twice a day for 2 weeks 60 g 1 08/26/2023 Active Albuterol Sulfate HFA 108 (90 Base) [...] before bedtime. 84 Capsule 01/24/2024 4 Active Hospital, Clinic, or Other Facility Administered Medication Ordered Dose Route Frequency Start Date End Date Status medroxyPROGESTERone acetate (Depo-Provera) inj BRYANNA 150 mgIndications:Depo-Provera contraceptive status 150 mg IM [id number] 02/08/2023 07/27/2025 Acti ve documented as of this encounter (statuses as of 01/27/2024) Active Problems Problem Noted Date Diagnosed Date [...] ICD-10 update of inactive term ROCK RESEARCH OTHER*[id number] 11/17/2007 documented as of this encounter (statuses as of 01/27/2024) Resolved Problems Problem Noted Date Diagnosed Date [...] BMI) 08/01/2009 01/01/2014 Overview: Per Obesity Taxonomy MECHANICAL DOOR REPAIRER demyelination 07/11/2009 09/17/2018 ADVANCE DIRECTIVE INFORMATION 07/03/2009 [...] as of this encounter (statuses as of 01/27/2024) Immunizations Name Administration Dates Next Due COVID-19 [...] Telephone Encounter - Yessi Carver RN - 01/27/2024 10:27 AM EDT [facility] updated. * Telephone Encounter - Issac Dick OSA - 01/27/2024 10:14 AM EDT Per request from Radha Bledsoe, patient scheduled for labs from [facility] prior to appt with Dr. Lambert on 01/30/24. Nursing - FYI documented in this encounter Plan of Treatment Upcoming Encounters Date Type Department Care Team (Latest Contact Info) Description 4 1:15 PM EDT Nurse Only Hematology/Onc ology Treatment, [place] 200 [facility] [place] [phone] Catina, Chair 1 Hem Onc [address] [place] [address] 4 2:20 PM EDT Office Visit General Internal Medicine [facility] [place] 200 [facility] [place] [address] Kimberly Figueroa MD 200 [facility] [place] [address] 4 10:30 AM EDT Office Visit Allergy/Immuno logy [facility] [place] 200 [facility] [place] [address] Krystal Thomas PA-C 200 [facility] [place] [address] 4 8:41 AM EDT Hospital Encounter OR [facility], Operating Room, [facility] - 4th Floor [address] [place] [address] Anita Ha MD [address] [place] [address] 4 8:41 AM EDT - 4 9:52 AM EDT Surgery OR [facility], Operating Room, [facility] - 4th Floor [address] [place] [address] Anita Ha MD [address] [place] [address] ESOPHAGOGASTRODUODENOSCOPY (EGD), FLEXIBLE, TRANSORAL, DIAGNOSTIC 4 11:30 AM EDT Nurse Only Ancillary [facility] [place]ina [place] [address] [place] [address] Nurse, Int Med 200 [facility] [place] [address] 4 3:20 PM EST Office Visit General Internal Medicine [facility] [place] Michelle Dominique [address] [place] [address] Kimberly Figueroa MD [address] [place] [address] 4 10:00 AM EST Telemedicine Dermatology, Katarina Santos [address] [facility] [place] [address] [place], Pharmacist Dermatology E Mtn [facility] [address] [facility] [place] [address] 4 10:00 AM EST Hem/Onc Treatment Hematology/Onc ology Treatment, [place] [address] [place] [phone] Catina, Chair 3 Hem Onc [facility] 200 [facility] [place] [address] 5 2:30 PM EST Office Visit Otolaryngology [facility] [place] [address] [place] [address] Anna Ferro MD [address] [place] [address] 7:00 AM EDT Pharmacy Neurology L[address] [place] [phone] [place], Pharmacist Neurology [address] [facility] [place] [address] Scheduled Procedures Name [...] this encounter Medical Devices Implanted Type Area Adjunct Instructor Chemistry Device Identifier Shelf Expiration Date Model / Serial / Lot Port Pwr Mri Isp Profile - [id number] Implanted:Qty: 1 on 08/09/2015 by Terrance Curry MD at OR [facility] Left: Chest CR BARD : PERIPHERAL VASCULAR 05/02/2017 [id number] / / [id number] Description:27 length of cat heter documented as [...] Care Agent (per Health Care Power of Service Desk Team Lead document) Care Teams Coin Machine Collector Supervisor Relationship Specialty Start Date End Date Kimberly Figueroa MD 200 [facility] [place] [address] PCP - General Internal Medicine 02/21/21 documented as of this encounter
--- OUTSIDE RECORDS SUMMARY | 2024-04-13 04:58 | External Medical Summary | Summary of Care ---
Author Name Unknown Organization [facility] Address [address] [facility] [place] [address] Phone [phone] Care Team Providers Care Tablet Making Machine Operator Name Role Phone Kimberly Figueroa MD Primary Care Provider + Reason for Visit * Reason Onset Date Comments Advice 01/07/2024 Education 01/07/2024 Forms Request 01/07/2024 Encounter Details Date Type Department Care Team (Late st Contact Info) Description 01/07/2024 Telephone General Internal Medicine [facility] [place] 200 [facility] [place] [address] Kimberly Figueroa MD 200 [facility] [address] Advice; Education; Forms Request Allergies Active Allergy [...] Active Topiramate 50 MG Oral Tablet (topAMAX)Indicati ons:VIDEO EFFECTS EDITOR demyelination (HCC) TAKE 1 TABLET BY MOUTH [...] Rizatriptan Benzoate 10 MG Oral Tablet (Maxalt)Indicatio ns:VIDEO EFFECTS EDITOR demyelination (HCC) one at onset. May repeat [...] 150 mgIndications:Depo-Provera contraceptive status 150 mg IM [id number] 02/08/2023 07/27/2025 Acti ve documented as of [...] ICD-10 update of inactive term ROCK RESEARCH OTHER*[id number] 11/17/2007 documented as of this encounter (statuses [...] BMI) 08/01/2009 01/01/2014 Overview: Per Obesity Taxonomy VIDEO EFFECTS EDITOR demyelination 07/11/2009 09/17/2018 ADVANCE DIRECTIVE INFORMATION 07/03/2009 [...] encounter Miscellaneous Notes * Telephone Encounter - Susu Peguero OSA - 01/27/2024 9:47 AM EDT [facility] is needed by 02/21/2024. Please call Selina and let her know if this was received. * Telephone Encounter - Migdalia Levy TECH - 01/09/2024 2:24 PM EDT Attempted to contact patient/patient goodwill representative regarding History and Physical requirement for patient's imaging scheduled with anesthesia on 01/15. Unable to contact patient or goodwill representative at this time. Message left to return call to [facility] at [phone] during business hours: Saturday through Saturday 8:00 AM to 4:00 PM, closed weekends and holidays. * Telephone Encounter - Prema Rosales OSA - 01/07/2024 11:35 AM EDT Myriam with [employer] called and said that she will be [...] for the form. Please fax back to [phone] Attention; Myriam documented in this encounter Plan of Treatment Upcoming Encounters Date Type Department Care Team (Latest Contact Info) Description 4 10:30 AM EDT Office Visit Allergy/Immuno logy [place] [address] [place] [address] Krystal Thomas PA-C [address] [place] [address] 4 8:41 AM EDT Hospital Encounter [facility], Operating Room, [facility] - 4th Floor [address] [place] [address] Anita Ha MD [address] [place] [address] 4 8:41 AM EDT - 4 9:52 AM EDT Surgery OR [facility], Operating Room, [facility] - 4th Floor [address] [place] [address] Anita Ha MD [address] [place] [address] ESOPHAGOGASTRODUODENOSCOPY (EGD), FLEXIBLE, TRANSORAL, DIAGNOSTIC 4 11:30 AM EDT Nurse Only Ancillary [facility] [place] 200 [place] [address] Nurse, Int Med 200 [facility] [place] [address] 4 3:20 PM EST Office Visit General Internal Medicine [facility] [place] 200 [place] [address] Kimberly Figueroa MD 200 [facility] [place] [address] 4 10:00 AM EST Telemedicine Dermatology, Katarina Santos [address] [facility] [place] [address] [place], Pharmacist Dermatology E [address] [facility] [address] [place] [address] 4 10:00 AM EST Hem/Onc Treatment Hematology/Onc ology Treatment, [place] [address] [place] [address] Catina, Chair 3 Hem Onc [facility] 200 [place] [address] 5 2:30 PM EST Office Visit Otolaryngology [facility] 132 [place] [address] Anna Ferro MD 132 [place] [address] 7:00 AM EDT Pharmacy Neurology Lore [address] [place] [address] Lore, Pharmacist Neurology [address] [place] [address] [place] [address] Scheduled Procedures Name Priority [...] this encounter Medical Devices Implanted Type Area Director Mortgage Device Identifier Shelf Expiration Date Model / Serial / Lot Port Pwr Mri Isp Profile - [id number] Implanted:Qty: 1 on 08/09/2015 by Terrance Curry MD at [facility] Left: Chest CR BARD : PERIPHERAL VASCULAR 05/02/2017 [id number] / / [id number] Description:27 length of cat heter Explanted Type Area Director Mortgage Device Identifier Shelf Expiration Date Model / Serial / Lot Stent [employer] [id number] - [id number] Implanted:Qty: 1 on 03/19/2023 by Anita Ha MD at OR [facility] Explanted:Qty: 1 on 01/17/2024 by Ainta Ha MD at OR [facility] [place] SCIENTIFIC : ENDOSCOPY [id number] 12/19/2023 [id number] / / [id number] documented as of this encounter Advance Directives [...] Agents on File Name Relationship Healthcare Agent [facility] p Communication Lashanda PhillipsJerome Mother First Alternate Health Care Agent (per Health Care Power of Boot Maker document) Care Teams Tablet Making Machine Operator Relationship Specialty Start Date End Date Kimberly Figueroa MD [address] [place] [address] PCP - General Internal Medicine 02/21/21 documented as of this encounter
--- OUTSIDE RECORDS SUMMARY | 2024-04-13 04:58 | External Medical Summary | Summary of Care ---
Author Name Unknown Organization [facility] Address [address] [facility] [place] [address] Phone [phone] Care Team Providers Care Map Mounter Name Role Phone Kimberly Figueroa MD Primary Care Provider + Encounter Details Date Type Department Care Team (Late st Contact Info) Description 01/27/2024 Orders Only PATIENT PORTAL DO NOT DELETE THIS DEPT USED BY [place] [id number] Allergies Active Allergy Reactions Criticality Noted Date [...] Active Topiramate 50 MG Oral Tablet (topAMAX)Indication s:SKEINER demyelination (HCC) TAKE 1 TABLET BY MOUTH [...] Rizatriptan Benzoate 10 MG Oral Tablet (Maxalt)Indications :SKEINER demyelination (HCC) one at onset. May repeat [...] 150 mgIndications:Depo-Provera contraceptive status 150 mg IM [id number] 02/08/2023 07/27/2025 Acti ve documented as of [...] ICD-10 update of inactive term ROCK RESEARCH OTHER*[id number] 11/17/2007 documented as of this encounter (statuses [...] BMI) 08/01/2009 01/01/2014 Overview: Per Obesity Taxonomy SKEINER demyelination 07/11/2009 09/17/2018 ADVANCE DIRECTIVE INFORMATION 07/03/2009 [...] 18 years and over) Not on file 4 Are you (or your family) derick eless [...] 4 10:30 AM EDT Office Visit Allergy/Immuno logjesse [place] [address] [place], [place] [address] Krystal Thomas PA-C 200 [facility] [place] [address] 4 8:41 AM EDT Hospital Encounter OR [facility], Operating Room, [facility] - 4th Floor 400 [facility] [place] [phone] Anita Ha MD [address] [place] [address] 4 8:41 AM EDT - 4 9:52 AM EDT Surgery OR [facility], Operating Room, [facility] - 4th Floor [address] [place] [address] Anita Ha MD [address] [place] [address] ESOPHAGOGASTRODUODENOSCOPY (EGD), FLEXIBLE, TRANSORAL, DIAGNOSTIC 4 11:30 AM EDT Nurse Only Ancillary State Michelle Gill [address] [place] [place] [address] Nurse, Int Med [address] [place] [address] 4 3:20 PM EST Office Visit General Internal Medicine [facility] State Michelle [place] 200 [facility] [place] [address] Kibmerly Figueroa MD [address] [place] [address] 4 10:00 AM EST Telemedicine Dermatology, Katarina Santos [address] [place] [address] W[place], Pharmacist Dermatology [address] [facility] [place] [address] 4 10:00 AM EST Hem/Onc Treatment Hematology/Onc ology Treatment, [place] [address] [place] [phone] Park, Chair 3 Hem Onc Scenery [address] [place] [address] 5 2:30 PM EST Office Visit Otolaryngology [facility] [address] [place] [address] Anna Ferro MD [address] [place] [address] 5 7:00 AM EDT Pharmacy Neurology [address] [place], [place] [phone] Lore, Pharmacist Neurology [address] [facility] [place] [address] Scheduled Procedures Name [...] this encounter Medical Devices Implanted Type Area In File Operator Device Identifier Shelf Expiration Date Model / Serial / Lot Port Pwr Mri Isp Profile - [id number] Implanted:Qty: 1 on 08/09/2015 by Terrance Curry MD at [facility] Left: Chest CR BARD : PERIPHERAL VASCULAR 05/02/2017 [id number] / / [id number] Description:27 length of cat heter documented as [...] on File Name Relationship Healthcare Agent [facility] p Communication Lashanda Justus Mother First Alternate Health Care Agent (per Health Care Power of Racker Octave Board document) Care Teams Map Mounter Relationship Specialty Start Date End Date Kimberly Figueroa MD [address] [place] [address], [place] [address] PCP - General Internal Medicine 02/21/21 documented as of this encounter
--- OUTSIDE RECORDS SUMMARY | 2024-04-13 04:58 | External Medical Summary | Summary of Care ---
Author Name Unknown Organization [facility] Address [address] [facility] [place] [address] Phone [phone] Care Team Providers Care Automobile Salesman Name Role Phone Kimberly Figueroa MD Primary Care Provider + Reason for Visit * Reason Onset Date Comments Advice 01/07/2024 Education 01/07/2024 Forms Request 01/07/2024 Encounter Details Date Type Department Care Team (Late st Contact Info) Description 01/07/2024 Telephone General Internal Medicine [facility] [place] 200 [facility] [place] [address] Kimberly [facility]eroa MD 200 [facility] [address] Advice; Education; Forms Request Allergies Active Allergy Reactions Criticality Noted Date Comments Cephalexin Hives 01/24/2010 As a small child Clindamycin Hives 12/30/2014 " And bad heartburn" As an adult about age 24 Hydrocodone Medium 12/26/2018 Other reaction(s): Itching Methocarbamol Rash High 06/17/2016 Sulfa Antibiotics Hives 08/05/2006 As a small child Hydrocodone-Acetaminophen Itching 01/01/2014 documented as of this encounter (statuses as of 01/28/2024) Medications Medication Sig Dispensed Refills Start Date [...] Active Topiramate 50 MG Oral Tablet (topAMAX)Indicati ons:JUNK REMOVAL SPECIALIST demyelination (HCC) TAKE 1 TABLET BY [...] Rizatriptan Benzoate 10 MG Oral Tablet (Maxalt)Indicatio ns:JUNK REMOVAL SPECIALIST demyelination (HCC) one at onset. May [...] 150 mgIndications:Depo-Provera contraceptive status 150 mg IM [id number] 02/08/2023 07/27/2025 Acti ve documented as of this encounter (statuses as of 01/28/2024) Active Problems Problem Noted Date Diagnosed Date [...] ICD-10 update of inactive term ROCK RESEARCH OTHER*[id number] 11/17/2007 documented as of this encounter (statuses as of 01/28/2024) Resolved Problems Problem Noted Date Diagnosed Date [...] BMI) 08/01/2009 01/01/2014 Overview: Per Obesity Taxonomy JUNK REMOVAL SPECIALIST demyelination 07/11/2009 09/17/2018 ADVANCE DIRECTIVE INFORMATION [...] as of this encounter (statuses as of 01/28/2024) Immunizations Name Administration Dates Next Due COVID-19 [...] encounter Miscellaneous Notes * Telephone Encounter - Shara Briceno LPN - 01/28/2024 1:[address] Figueroa - have you seen any form? * Telephone Encounter - Susu Peguero OSA - 01/27/2024 9:47 AM EDT Selina [facility] 570 form is needed by 02/21/2024. Please call Selina and let her know if this was received. * Telephone Encounter - Migdalia Levy TECH - 01/09/2024 2:24 PM EDT Attempted to contact patient/patient manufacturers representative regarding History and Physical requirement for patient's imaging scheduled with anesthesia on 01/15. Unable to contact patient or manufacturers representative at this time. Message left to return call to [facility] at [phone] during business hours: Saturday through Saturday 8:00 AM to 4:00 PM, closed weekends and holidays. * Telephone Encounter - Prema Rosales OSA - 01/07/2024 11:35 AM EDT Myriam with [employer] called and said that she will be [...] for the form. Please fax back to [phone] Attention; Myriam documented in this encounter Plan of Treatment Upcoming Encounters Date Type Department Care Team (Latest Contact Info) Description 4 1:15 PM EDT Nurse Only Hematology/Onc ology Treatment, [place] [address] [facility] [place] [phone] Catina, Chair 1 Hem On[address] [place] [address] 4 2:20 PM EDT Office Visit General Internal Medicine [facility] [place] [address] [place] [address] Kimberly Figueroa MD [address] [place] [address] 4 10:30 AM EDT Office Visit [facility] [employer] [address] [place] [address] Krystal Thomas PA-C 200 [facility] [place] [address] 4 8:41 AM EDT Hospital Encounter OR [facility], Operating Room, [facility] - 4th Floor [address] [place] [phone] Anita Ha MD [address] [place] [address] 4 8:41 AM EDT - 4 9:52 AM EDT Surgery OR [facility], Operating Room, [facility] - 4th Floor [address] [place] [phone] Anita Ha MD [address] [place] [address] ESOPHAGOGASTRODUODENOSCOPY (EGD), FLEXIBLE, TRANSORAL, DIAGNOSTIC 4 11:30 AM EDT Nurse Only Ancillary [facility] [place] [address] [place] [address] Nurse, Int Med [address] [place] [address] [address] 4 3:20 PM EST Office Visit General Internal Medicine State Michelle Gill [address] [place] [address] Kimberly Figueroa MD [address] [place] [address] 4 10:00 AM EST Telemedicine Dermatology, Katarina Santos [address] [facility] [place] [address] W[place], Pharmacist Dermatology [address] [facility] [address] [facility] [place] [address] 4 10:00 AM EST Hem/Onc Treatment Hematology/Onc ology Treatment, [place] [address] [place] [phone] Catina, Chair 3 Hem Onc Scenery [address] [facility] [address] 5 2:30 PM EST Office Visit Otol[facility]ology [facility] [address] [place] [address] Anna Ferro MD [address] [place] [address] 5 7:00 AM EDT Pharmacy Neurology [address] [place] [phone] Lore, Pharmacist Neurology [address] [facility] [place] [address] Scheduled Procedures Name Priority [...] this encounter Medical Devices Implanted Type Area Recreation Therapist Device Identifier Shelf Expiration Date Model / Serial / Lot Port Pwr Mri Isp Profile - [id number] Implanted:Qty: 1 on 08/09/2015 [place] [facility] [place]: Chest CR BARD : PERIPHERAL VASCULAR 05/02/2017 [id number] / / [id number] Description:27 length of cat heter Explanted Type Area Recreation Therapist Device Identifier Shelf Expiration Date Model / Serial / Lot Stent Axios [id number] - [id number] Implanted:Qty: 1 on 03/19/2023 by Anita Ha MD at OR [facility] Explanted:Qty: 1 on 01/17/2024 by Anita Ha MD at OR [facility] [employer] : ENDOSCOPY [id number] 12/19/2023 [id number] / / [id number] documented as of this encounter Advance Directives [...] Agents on File Name Relationship Healthcare Agent [facility] p Communication Lashanda Justus Mother First Alternate Health Care Agent (per Health Care Power of Bioinformatics Support Specialist document) Care Teams Automobile Salesman Relationship Specialty Start Date End Date Kimberly Figueroa MD [address] [place] [address] PCP - General Internal Medicine 02/21/21 documented as of this encounter
--- OUTSIDE RECORDS SUMMARY | 2024-04-13 04:58 | External Medical Summary | Summary of Care ---
Author Name Unknown Organization [facility] Address [address] [facility] [place] [address] Phone [phone] Care Team Providers Care Tobacco Sample Puller Name Role Phone Kimberly Figueroa MD Primary Care Provider + Reason for Visit * Reason Onset Date Comments Appointment 01/27/2024 Encounter Details Date Type Department Care Team (Late st Contact Info) Description 01/27/2024 Telephone General Internal Medicine [facility] 200 [facility] [place] [address] Kimberly Figueroa MD 200 [place] [address] Appointment Allergies Active Allergy Reactions Criticality Noted [...] Active Topiramate 50 MG Oral Tablet (topAMAX)Indication s:DATA REVIEW SPECIALIST demyelination (HCC) TAKE 1 TABLET BY [...] Rizatriptan Benzoate 10 MG Oral Tablet (Maxalt)Indications :DATA REVIEW SPECIALIST demyelination (HCC) one at onset. 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 * Telephone Encounter - Issac Dick OSA - 01/27/2024 10:14 AM EDT Per request from Radha Bledsoe, patient scheduled for labs from [facility] prior to appt with Dr. Lambert on 01/30/24. Nursing - FYI documented in this encounter Plan of Treatment Upcoming Encounters Date Type Department Care Team (Latest Contact Info) Description 4 1:15 PM EDT Nurse Only Hematology/Onc ology Treatment, [place] 200 [facility] [place] [phone] Catina, Chair 1 Hem Onc [address] [place] [address] 4 2:20 PM EDT Office Visit General Internal Medicine [facility] [place] 200 [facility] [place] [address] Kimberly Figueroa MD 200 [facility] [place] [address] 4 10:30 AM EDT Office Visit Allergy/Immuno logy [facility] [place] 200 [facility] [place] [address] Krystal Thomas PA-C 200 [facility] [place] [address] 4 8:41 AM EDT [facility], [facility] Room, [facility] - 4th Floor [address] [place] [address] Anita Ha MD [address] [place] [address] 4 8:41 AM EDT - 4 9:52 AM EDT Surgery OR [facility], Operating Room, [facility] - 4th Floor [address] [place] [address] Anita Ha MD [address] [place] [address] ESOPHAGOGASTRODUODENOSCOPY (EGD), FLEXIBLE, TRANSORAL, DIAGNOSTIC 4 11:30 AM EDT Nurse Only Ancillary [facility] Catina [place] [address] [place] [address] Nurse, Int Med 200 [facility] [place] [address] 4 3:20 PM EST Office Visit General Internal Medicine [facility] State Michelle Dominique [address] [place] [address] Kimberly Fiugeroa MD [address] [place] [address] 4 10:00 AM EST Telemedicine Dermatology, Katarina Santos [address] [facility] [place] [address] [place], Pharmacist Dermatology [address] [facility] [address] [facility] [place] [address] 4 10:00 AM EST Hem/Onc Treatment Hematology/Onc ology Treatment, [place] [address] [place] [phone] Catina, Chair 3 Hem Onc [facility] 200 [facility] [place] [address] 5 2:30 PM EST Office Visit Otolaryngology [facility] [place] [address] [place] [address] Anna Ferro MD [address] [place] [address] 7:00 AM EDT Pharmacy Neurology L[address] [place] [phone] [place], Pharmacist Neurology [address] [facility] [place] [address] Scheduled Procedures Name [...] this encounter Medical Devices Implanted Type Area Vehicle Washer Device Identifier Shelf Expiration Date Model / Serial / Lot Port Pwr Mri Isp Profile - [id number] Implanted:Qty: 1 on 08/09/2015 by Terrance [place] MD [place] [facility] Left: Chest CR BARD : PERIPHERAL VASCULAR 05/02/2017 [id number] / / [id number] Description:27 length of cat heter documented as [...] 5:56 AM 12/03/2011 1:07 PM This order reflects the patients wishes and were consensually agreed upon. Healthcare Agents on File Name Relationship Healthcare Agent [facility] p Communication Lashanda Justus Mother First Alternate Health Care Agent (per Health Care Power of Community Mental Health Social Worker document) Care Teams Tobacco Sample Puller Relationship Specialty Start Date End Date Kimberly Figueroa MD 200 [facility] [place] [address] PCP - General Internal Medicine 02/21/21 documented as of this encounter
--- OUTSIDE RECORDS SUMMARY | 2024-04-13 04:58 | External Medical Summary | Summary of Care ---
Author Name Unknown Organization [facility] Address [address] [facility] [address] Phone [phone] Care Team Providers Care Epidemiology Internship Name Role Phone Kimberly Figueroa MD Primary Care Provider + Reason for Visit * Reason Onset Date Comments Hospital Follow-Up 01/24/2024 [facility] 3 day pcp f/u needed. No appt avail. Please assist with patient scheduling. Thank you. Encounter Details Date Type Department Care Team (Late st Contact Info) Description 01/24/2024 Telephone General Internal Medicine Alexey Dominique [place] [address] [facility] [place] [address] Kimberly [facility]eroa [facility] [address] [facility] Follow[facility]Up ([facility] 01/24/24 3 day ... 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 May repeat two hour if neeed 9 Tablet 5 3 Active Triamcinolone Acetonide 0.1 % External Cream (Aristocort) Apply topically to affected area 2 times a day. Apply to rash areas. 30 g 4 Active Fluocinonide 0.05 % External OintmentIndication [...] the morning. 180 Tablet 1 4 Active Diclofenac Sodium 1 % External Gel (Voltaren)Indicati ons:Acute pain of left knee Apply 4 g topically to affected area in the morning and 4 g at noon and 4 g in the evening and 4 g before bedtime. Apply to left knee. 150 g 3 4 Active Sertraline HCl 100 MG Oral Tablet (Zoloft)Indication s:Recurrent major depressive disorder, in partial remission (HCC) Take 1 Tablet by mouth in the morning. 30 Tablet 5 4 Active hydrOXYzine Pamoate 25 MG Oral Capsule (Vistaril)Indicati ons:AUDELIA (generalized anxiety disorder) Take 1 Capsule by mouth 3 times a day as needed for Anxiety (Sleep). 30 Capsule 5 4 Active Dupixent 300 MG/2ML Subcutaneous Solution Pen-injector (Dupilumab)Indicat ions:Rash and nonspecific skin eruption Maintenance Dose: Inject 300mg (1 pen) under the skin every two weeks. 4 mL 2 4 Active Omeprazole 40 MG Oral Capsule Delayed Release (PriLOSEC)Indicati ons:Gastrojejunal anastomotic stricture Take 1 Capsule by mouth in the morning and 1 Capsule before bedtime. 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 (Household - for [...] encounter Miscellaneous Notes * Telephone Encounter - Tsering Gallo OSA - 01/27/2024 11:10 AM EDT Patient is scheduled for 01/30/2024 for HD * Telephone Encounter - Ada Lam OSA - 01/24/2024 9:53 AM EDT Robb Jerome 01/22/2024 10:03 PM Admission Description: 33 year old female Department: [address] Message Patient Name: ROBB JEROME([id number]) Sex: Female : 1990 PCP: KIMBERLY FIGUEROA Center: [facility] Types of orders made on 01/24/2024: IP Post Discharge , Lab, Medications Order Date:01/24/2024 Ordering User:VIKAS ANDREWS [[id number]] Attending Provider :Laurence Olivarez DO [[id number]] Authorizing Provider: Vikas Andrews MD [[id number]] Department:[address][[id number]] Order Specific Information Order: RETURN APPT [CUSTOM: [id number]] Order #: [id number]: [id number] Priority: Routine Class: Nursing Unit Department (Single Entry) -> Family Practice Appt Needed Within: (Specify # of Days, Weeks, Months) -> 1 Wk Provider -> STANLEY FIGUEROA Released on: 01/24/2024 12:51 PM Priority: Routine Class: Nursing Unit Department (Single Entry) -> Family Practice Appt Needed Within: (Specify # of Days, Weeks, Months) -> 1 Wk Provider -> KIMBERLY FIGUEROA Released on: 01/24/2024 12:51 PM [facility] 01/24/24 3 day pcp f/u needed. No appt avail. Please assist with patient scheduling. Thank you. Robb Jerome 01/22/2024 10:03 PM Admission Description: 33 year old female Department: [address] Message Patient Name: ROBB JREOME([id number]) Sex: Female : 1990 PCP: KIMBERLY FIGUEROA Center: [facility] Types of orders made on 01/24/2024: IP Post Discharge , Lab, Medications Order Date:01/24/2024 Ordering User:VIKAS ANDREWS [[id number]] Attending Provider :Laurence Olivarez DO [[id number]] Authorizing Provider: Vikas Andrews MD [[id number]] Department:[address][[id number]] Order Specific Information Order: RETURN APPT [CUSTOM: [id number]] Order #: [id number]: [id number] Priority: Routine Class: Nursing Unit Department (Single Entry) -> Family Practice Appt Needed Within: (Specify # of Days, Weeks, Months) -> 3 Days Provider -> KIMBERLY FIGUEROA Released on: 01/24/2024 9:51 AM Priority: Routine Class: Nursing Unit Department (Single Entry) -> Family Practice Appt Needed Within: (Specify # of Days, Weeks, Months) -> 3 Days Provider -> KIMBERLY FIGUEROA Released on: 01/24/2024 9:51 AM documented in this encounter Plan of Treatment Upcoming Encounters Date Type Department Care Team (Latest Contact Info) Description 4 1:15 PM EDT Nurse Only Hematology/Onc ology Treatment, [place] [address] [facility] [place] [id number] Catina, Chair 1 Hem Onc [address] [place] [address] 4 2:20 PM EDT Office Visit General Internal Medicine [facility] [place] [facility] [place] [address] Kimberly Figueroa MD [address] [facility] [place] [address] 4 10:30 AM EDT Office Visit [facility] [employer] [address] [address] Krystal Thomas PA-C [address] [facility] [place] [address] 4 8:41 AM EDT Hospital Encounter OR GL, Operating Room, [facility] - 4th Floor [address] [place] [address] Anita Ha MD [address] [place] [address] 4 8:41 AM EDT - 4 9:52 AM EDT Surgery OR [facility], Operating Room, [facility] - 4th Floor [address] [place] [address] Anita Ha MD [address] [place] [address] ESOPHAGOGASTRODUODENOSCOPY (EGD), FLEXIBLE, TRANSORAL, DIAGNOSTIC 4 11:30 AM EDT Nurse Only [facility] [employer] [address] [place] [address] Nurse, Int Med [address] [place] [address] 4 3:20 PM EST Office Visit General Internal [facility] Michelle Johnson [address] [place] [address] Kimberly Figueroa MD [address] [place] [place] [address] 4 10:00 AM EST Telemedicine Dermatology, Katarina Santos [address] [place] [address] Wb, Pharmacist Dermatology [address] [facility] [place] [address] 4 10:00 AM EST Hem/Onc Treatment Hematology/Onc ology Treatment, [place] [address] [place] [address] Park, Chair 3 Hem Onc Scenery [address] [place] [address] 5 2:30 PM EST Office Visit Otolaryngology [facility] [address] [place] [address] Anna Ferro MD [address] [place] [address] 5 7:00 AM EDT Pharmacy Neurology L[address] [place] [address] Lore, Pharmacist Neurology [address] [facility] [place] [id number] Scheduled Procedures Name Priority Associated Diagnoses Date/Ti [...] this encounter Medical Devices Implanted Type Area Bookmaker Map Device Identifier Shelf Expiration Date Model / Serial / Lot Port Pwr Mri Isp Profile - [id number] Implanted:Qty: 1 on 08/09/2015 by Terrance Curry MD at [facility] Left: Chest CR BARD : PERIPHERAL VASCULAR 05/02/2017 [id number] / / [id number] Description:27 length of cat heter documented as [...] Care Agent (per Health Care Power of Memory Care Director document) Care Teams Epidemiology Internship Relationship Specialty Start Date End Date Kimberly Figueroa MD [address] [place] [address] PCP - General Internal Medicine 02/21/21 documented as of this encounter
--- OUTSIDE RECORDS SUMMARY | 2024-04-13 04:58 | External Medical Summary | Summary of Care ---
Author Name Unknown Organization [facility] Address [address] [place] [address] Phone [phone] Care Team Providers Care School Manager Name Role Phone Kimberly Figueroa MD Primary Care Provider + Reason for Visit * Auth/Cert Specialty Diagnoses / Procedures Referred By Brando garduno Referred To Contact Diagnoses Upper GI bleed GI bleed Laurence Olivarez DO [address] [place] [address] Admissions [facility] [place] [address] [place] [address] Referral ID Status Reason Start Date Expiration Date Visits Re quested Visits Authorized [id number] Encounter Details Date Type Department Care Team (Latest Contact Info) Description 01/22/2024 10:03 PM EDT - 01/24/2024 4:02 PM EDT Hospital Encounter [id number] [place] [address] [place] [address] Laurence Olivarez DO [address] [place] [address] Juan C Salinas DO [address], [place] [id number] Callie Ngo MD [address] [place] [address] (work) Upper GI Endoscopy Discharge Disposition: Home - Self Care Allergies Active Allergy Reactions Criticality Noted Date Comments Cephalexin Hives 01/24/2010 As a small child Clindamycin Hives 12/30/2014 " And bad heartburn" As an adult about age 24 Hydrocodone Medium 12/26/2018 Other reaction(s): Itching Methocarbamol Rash High 06/17/2016 Sulfa Antibiotics Hives 08/05/2006 As a small child Hydrocodone-Acetaminophen Itching 01/01/2014 documented as of this encounter (statuses as of 01/25/2024) Medications Medication Sig Dispensed Refills Start Date [...] Active Topiramate 50 MG Oral Tablet (topAMAX)Indicatio ns:CONTROL CLERK [employer]OD AND BEVERAGE demyelination (HCC) TAKE 1 TABLET BY MOUTH [...] Rizatriptan Benzoate 10 MG Oral Tablet (Maxalt)Indication s:CONTROL CLERK [employer] AND BEVERAGE demyelination (HCC) one at onset. May repeat [...] bedtime. 84 Capsule 4 03/06/20 24 Active Omeprazole 40 MG Oral Capsule Delayed Release (PriLOSEC)Indicati ons:Gastrojejunal anastomotic stricture Take 1 Capsule (40 mg) by mouth in the morning and 1 Capsule (40 mg) before bedtime. 180 Capsule 3 2 01/24/20 24 Discontinued Clobetasol Propionate 0.05 % External Cream (Temovate)Indicati ons:Rash and nonspecific skin eruption Apply topically to affected area 2 times a day. To affected area for up to two weeks. 30 g 3 4 01/24/20 24 Discontinued Omeprazole 40 MG Oral Capsule Delayed Release (PriLOSEC)Indicati ons:Gastrojejunal anastomotic stricture Take 1 Capsule by mouth in the morning and 1 Capsule before bedtime. 60 Capsule 3 4 01/24/20 24 Discontinued documented as of this encounter (statuses as of 01/25/2024) Active Problems Problem Noted Date Diagnosed Date [...] ICD-10 update of inactive term R[employer] OTHER*[id number] 11/17/2007 documented as of this encounter (statuses as of 01/25/2024) Resolved Problems Problem Noted Date Diagnosed Date [...] BMI) 08/01/2009 01/01/2014 Overview: Per Obesity Taxonomy CONTROL CLERK [employer] BEVERAGE demyelination 07/11/2009 09/17/2018 ADVANCE DIRECTIVE INFORMATION 07/03/2009 [...] as of this encounter (statuses as of 01/25/2024) Immunizations Name Administration Dates Next Due COVID-19 [...] Sign Reading Time Taken Comments Blood Pressure 106/66 01/24/2024 2:26 PM EDT Pulse 83 01/24/2024 2:26 PM EDT Temperature 36.4 C (97.5 F) 01/24/2024 2:26 PM ED T Respiratory Rate 18 01/24/2024 2:26 PM EDT Oxygen Saturation 100% 01/24/2024 2:26 PM EDT Inhaled Oxygen Concentration - - Weight - - Height - - Body Mass Index - - documented in this encounter Functional Status Functional [...] No 01/22/2024 documented as of this encounter Discharge Summaries * Vikas Royal MD - 01/24/2024 12:37 PM EDT Images from the original note were not included. [facility] [place] [address] Admission Date: 01/22/2024 Discharge Date: 01/24/2024 RECOMMENDED TO DO FOR NEXT PROVIDER(S): Patient was discharged with PPI twice daily for a total of 6 weeks and then daily dosing thereafter. Endoscopy as previously scheduled with Dr. Ha on 02/13/2024 Follow up CBC ordered in 1 week. MEDICATION(S): New Medications - Omeprazole continue twice dosing at discharge for 6 weeks with daily dosing thereafter DISPOSITION ON DISCHARGE: home Active Hospital Problems Diagnosis AUDELIA (generalized anxiety disorder) Postgastric surgery syndrome Resolved Hospital Problems Diagnosis Date Resolved *Principal Diagnosis - Gastrointestinal hemorrhage with melena 01/24/2024 Hematemesis 01/24/2024 Upper GI bleed 01/24/2024 ADMISSION HISTORY & PHYSICAL EXAM (focused): PRESENTING PROBLEM: Hematemesis and abdominal pain HPI: 33 year old female with past medical history of multiple sclerosis on ocrelizumab, gastric bypass and 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 Patient was seen at [facility] today where she presented with vomiting, abdominal pain, heartburn blood in the stool and hematemesis. Patient reports that her stent was removed on Saturday since then she was sick to stomach and was unable to keep anything down. However no vomiting until today. Unable to quantify how much blood was in vomitus. Her mom at bedside assists with history. She reports after stent removal it was mentioned toher that procedure was complicated with stomach tear. She is not any anticoagulation Currently tachycardic however blood pressure is stable. On room air. At outlying facility her Hgb 10.3, was 11.3 in April of last year. currently, on Protonix gtt with pepcid. CT shows: Wall thickening at JG anas tomosis, possible infectious / inflammatory process. No bowel obstruction Cr 0.44. Labs: WBC 7. Cr 0.44. Hgb 10.3 Physical Exam Most Recent Vital Signs: BP: 126 mmHg/82 mmHg (01/22/242205) Pulse: 130 (01/22/242205) Resp: 16 (01/22/242205) Temp: Temp Summary: No data recorded SpO2: 100 % (01/22/24 2206) O2 flow rate: Supplemental O2 Delivery: Constitutional: no acute distress HEENT: Port present CV: normal rate, normal rhythm, (+) tachycardic Chest: normal respiratory effort, lungs clear to auscultation and percussion Abdomen: normal: soft, epigastric tenderness bowel sounds normal, no masses, or organomegaly Musculoskeletal: (-) negative Extremities: no clubbing, cyanosis, or edema, otherwise grossly normal, warm, and dry Neuro: alert, oriented to person, place, and time, normal mental status exam, gait normal, reflexesnormal and symmetric, sensory normal HOSPITAL COURSE (focused): Patient was admitted for concern of upper [...] and deemed ready for discharge on 01/24/2024. PHYSICAL EXAMINATION (DAY OF DISCHARGE) BP 104/60 | Pulse 91 | Temp 36.6 C (97.9 F) (Tympanic) | Resp 16 | SpO2 100% General: well appearing, resting comfortably, in no acute distress Eyes: EOMI, sclera anicteric, conjunctiva clear ENT: External ears normal, external nose normal, moist mucous membranes, neck supple. CV: Regular rate and rhythm, no murmur, rub, or gallop Lungs: No increased work of breathing. Clear to auscultation bilaterally Abdomen: Normoactive bowel sounds, non-distended, soft, no TTP Extremities: No cyanosis, clubbing, or edema. Skin: Warm, dry, in-tact. Neurologic: Awake, Alert, and Oriented x 3 Psych: Pleasant, Cooperative, Appropriate mood, Appropriate affec Operations & Procedures: EGD Impression: - Normal esophagus. - Gastric-gastric fistula. - Friable gastric mucosa. - Normal examined jejunum. - No specimens collected. Complications: none significant Significant Lab and Imaging Results: Available in [facility] for review Results Pending at Discharge: Lab Results Pending at Discharge: BASIC METABOLIC PANEL Routine MEDICATION UPDATES AT DISCHARGE CHANGE how you take these medications INSTRUCTIONS Vitamin D3 125 MCG (5000 UT) Capsule What changed: additional instructions Take 1 Cap by mouth daily. Take with additonal 1000 units for total of 6000 units daily CONTINUE taking these medications INSTRUCTIONS * Albuterol Sulfate (2.5 MG/3ML) 0.083% nebulizer solution Commonly known as: Proventil USE ONE VIAL IN NEBULIZER EVERY 4 HOURS NEEDED FOR WHEEZING DX: J45.30 * albuterol HFA 108 (90 BASE) MCG/ACT inhaler INHALE 2 PUFFS BY MOUTH EVERY FOUR HOURS NEEDED FOR WHEEZING Gemma-D Allergy & Congestion 180-240 MG Tb24 Generic drug: Fexofenadine-Pseudoephed ER Take 1 Tablet by mouth in the morning. Cranberry 500 MG Capsule Take 1 Capsule by mouth in the morning. Diclofenac 1 % Gel Commonly known as: Voltaren Apply 4 g topically to affected area in the morning and 4 g at noon and 4 g in the evening and 4 g before bedtime. Apply to left knee. Dupixent 300 MG/2ML Sopn Generic drug: Dupilumab Maintenance Dose: Inject 300mg (1 pen) under the skin every two weeks. EPINEPHrine (anaphylaxis) 0.3 MG/0.3ML Soaj Commonly known as: Autoinjector For a severe reaction: Inject in outer thigh following instructions on package and go to the Emergency room. Flintstones Complete 60 MG chewable tablet daily Fluocinonide 0.05 % ointment Apply to rash behind knees, elbows, trunk twice a day for 2 weeks folic acid 1 MG Tablet Take 2 Tablets by mouth in the morning. Glucose Blood Strp Commonly known as: OneTouch Verio Test blood sugar once daily as directed. Dx: E16.2 hydrOXYzine pamoate 25 MG Capsule Commonly known as: Vistaril Take 1 Capsule by mouth 3 times a day as needed for Anxiety (Sleep). medroxyPROGESTERone (contracep) 150 MG/ML injection Commonly known as: Depo-Provera INJECT 150 MG INTO A LARGE MUSCLE EVERY 3 MONTHS. Ocrelizumab 300 MG/10ML Soln Commonly known as: Ocrevus Administer intravenously. Every 6 months omeprazole 40 MG Cpdr Commonly known as: PriLOSEC Take 1 Capsule by mouth in the morning and 1 Capsule before bedtime. OneTouch Delica Lancets 33G Misc Test blood sugar once daily as directed. Dx: E16.2 promethazine 25 MG Tablet Commonly known as: Phenergan Take 1 Tablet by mouth every 6 hours as needed for Nausea. or vomiting Rizatriptan 10 MG Tablet Commonly known as: Maxalt one at onset. May repeat two hour if neeed sertraline 100 MG Tablet Commonly known as: Zoloft Take 1 Tablet by mouth in the morning. Topiramate 50 MG Tablet Commonly known as: topAMAX TAKE 1 TABLET BY MOUTH TWICE A DAY Triamcinolone Acetonide 0.1 % cream Commonly known as: Aristocort Apply topically to affected area 2 times a day. Apply to rash areas. venlafaxine 50 MG Tablet Commonly known as: Effexor Take 1 Tablet by mouth in the morning and 1 Tablet before bedtime. With food.. Vitamin B-12 1000 MCG/ML injection Commonly known as: Cyanocobalamin Inject 1,000 mcg into a large muscle every 30 days. * This list has 2 medication(s) that are the same as other medications prescribed for you. Read thedirections carefully, and ask your doctor or other care provider to review them with you. STOP taking these medications Clobetasol Propionate 0.05 % cream Commonly known as: Temovate SCHEDULED FOLLOW-UP: Future Appointments Appt Date/Time Provider Department 02/05/2024 10:30 AM Krystal Thomas PA-C Allergy/Immunology [facility] 02/19/2024 11:30 AM Nurse, Int Med Ancillary [facility] 04/14/2024 3:20 PM Kimberly Figueroa MD General Internal Medicine [facility] 04/15/2024 10:00 AM Wb, Pharmacist Dermatology [facility] 04/17/2024 10:00 AM Catina, Chair 3 Hem Onc [facility] 05/26/2024 2:30 PM Anna Ferro MD Otolaryngology [facility] Outpatient Follow Up CBC Other Information Indwelling Devices: LINES ALL Duration Implanted IV Device Left Chest -- days Vital Signs (last recorded): Most Recent Systolic BP: 104 mmHg (01/24/24628) Most Recent Diastolic BP: 60 mmHg (01/24/24628) Pulse: 91 (01/24/24628) Resp: 16 (01/24/24628) Most Recent Temperature: 36.61 C (01/24/24628) SpO2: 100 % (01/24/24628) Allergies: Robaxin [methocarbamol], Hydrocodone, Cephalexin, Clindamycin, Sulfa antibiotics, and Vicodin [hydrocodone-acetaminophen] Activity: as tolerated Diet: age appropriate diet Code Status: Full Code Condition on Discharge: stable Isolation status: None Cognition: normal HOSPITAL CONSULTS ORDERED: GASTROENTEROLOGY CONSULT IP REFERRING PHYSICIAN: REF: SELF [address] STRE[address] ADDRESS AVAILABLE PRIMARY CARE PROVIDER: PCP: Kimberly Figueroa MD [address] [place] [address] / [facility] [id number] (office) [phone] (fax) Note: To contact a physician responsible for this patients hospital care, please call [employer] [phone]. Associated attestation - Juan C Salinas DO - 01/24/2024 4:55 PM EDT I saw and evaluated the patient today. I have reviewed the resident/fellow physician note and agree. I spent a total of 34 minutes coordinating, documenting, and providing care for this patient excluding time spent in the performance of separately billed services. documented in this encounter Discharge Instructions * Discharge Instr - AVS* Vikas Royal MD - 01/24/2024 12:55 PM EDT Discharge Date: 01/24/2024 The information below provides you with the instructions and the list of medications you need to betaking following discharge from the hospital. If you have any questions, please ask before leaving. If you have questions after leaving, you can reach us at the numbers below. YOUR HOSPITAL PROVIDERS: Discharging Provider: Juan C Salinas DO Provider Department: Hospital Medicine To reach this Provider Saturday through Saturday (8:00 AM to 4:30 PM) for any questions or test results: Call [phone] For after-hours concerns: Call [phone] and have your provider paged, or the provider production line manager for the Department of Hospital Medicine paged. Please note, the discharging provider will not be able to provide you with any medications refills.Please discuss these with your primary care provider. Worsening Symptoms: If you have new symptoms, or your symptoms get worse, please contact your Discharge Provider or Primary Care Provider (PCP). If these providers are not available, you can go to your local [facility] service unit or Urgent Care Clinic during their business hours. In an EMERGENCY situation: Call 911 or go to the nearest emergency room. A BRIEF SUMMARY OF YOUR HOSPITAL STAY: You came to the hospital with: complaint of gastrointestinal bleeding. GI service was consulted andyou had an endoscopy done on 01/23/2024. You were observed in the hospital with no remarkable events. On day of discharge, your hemoglobin level did improve from 7.4 to 8.3 . Your condition was stable and deemed ready for discharge on 01/24/2024 Your main diagnosis at discharge was: Gastrointestinal bleeding Operations & Procedures performed: Endoscopy Complications: none significant Inpatient test results that are pending at discharge: none Advance Directive Documented: Advance Directive Does the Patient have an Advance Directive? Yes YOUR FOLLOW UP APPOINTMENTS: Primary Care Provider Information: PCP: Kimberly Figueroa MD [facility] [address] / [place] [address] (office) [phone] (fax) An appointment was requested with your PCP (Kimberly Figueroa MD) within 7 days. (Please take this form to this visit with your primary care physician.) Endoscopy as previously scheduled with Dr. Ha on 02/13/2024 Future Appointments-next 60 days Date/Time Provider Specialty Dept Phone 02/05/2024 10:30 AM (Arrive by 10:15 AM) Krystal Thomas PA-C Allergy and Immunology [phone] 02/19/2024 11:30 AM Nurse, Int Med Ancillary [phone] 04/14/2024 3:20 PM (Arrive by 3:05 PM) Kimberly Figueroa MD Internal Medicine [phone] 04/15/2024 10:00 AM Wb, Pharmacist Dermatology [address] Dermatology [phone] 04/17/2024 10:00 AM Catina, Chair 3 Hem Onc [facility] Hematology Oncology [phone] 05/26/2024 2:30 PM (Arrive by 2:15 PM) Anna Ferro MD Otolaryngology [phone] 08/24/2024 7:00 AM Lore, Pharmacist Neurology Neurology [phone] You need the following studies in the future: CBC: date - 01/31/2024 INSTRUCTIONS: Diet: Normal diet Activity: As tolerated Medications- Please START taking the following medications - Omeprazole continue twice dosing at discharge for 6 weeks with daily dosing thereafter Please continue taking all other medications as previously prescribed. Additional Instructions: - Call your primary care physician or seek medical attention if develop fever, chills, abdominal pain, or bloody stools. - Use caution when standing or walking since you are at an increased risk for falls - Do not take ssau-rik-cfrjeso NSAIDs (nonsteroid anti-inflammatory medications); ie. Advil, Motrin, Ibuprofen, etc. documented in this encounter Progress Notes * Vikas Royal MD - 01/23/2024 7:17 AM EDT PROGRESS NOTE - HOSPITAL MEDICINE [address] [address] Name: Shaunna Jerome [place] [id number] Date: 01/23/2024 Time: 7:23 AM OVERNIGHT: No acute events. SUBJECTIVE: Patient was seen and examined at bedside this morning. Patient reports that she had more than 5 hematemesis events since yesterday. She did have 1 melenic stool so far. Patient denied lightheadedness, abdominal pain, or constipation. All systems were reviewed and all pertinent findings were documented in the HPI. Otherwise negative. PHYSICAL EXAMINATION Most Recent Vital Signs: BP: 115 mmHg/65 mmHg (01/23/24703) Pulse: 81 (01/23/24703) Resp: 16 (01/23/24703) Temp: 37.22 C (01/23/24703) Temp Summary: Temp Min: 36.8 C (98.2 F) Max: 37.2 C (99 F) SpO2: 100 % (01/23/24703) O2 flow rate: Supplemental O2 Delivery: Room Air, None (01/23/24703) Vital Signs Last 24 Hours: Systolic BP: Most Recent Systolic BP Av mmHg Min: 107 mmHg Max: 126 mmHg Temperature: Most Recent Temperature Av C Min: 36.78 C Max: 37.22 C Pulse: Pulse Av.7 Min: 81 Max: 130 Respirations: Resp Av Min: 16 Max: 16 SpO2: SpO2 Av % Min: 100 % Max: 100 % Intake/Output Summary (Last 24 hours) at 01/23/2024 0723 Last data filed at 01/23/2024 0615 Gross per 24 hour Intake 685.31 ml Output -- Net 685.31 ml Weight: No data found. There is no height or weight on file to calculate BMI. General: well appearing, resting comfortably, in no acute distress Eyes: EOMI, sclera anicteric, conjunctiva clear ENT: External ears normal, external nose normal, moist mucous membranes, neck supple. CV: Regular rate and rhythm, no murmur, rub, or gallop Lungs: No increased work of breathing. Clear to auscultation bilaterally Abdomen: Normoactive bowel sounds, non-distended, soft, no TTP Extremities: No cyanosis, clubbing, or edema. Skin: Warm, dry, in-tact. Neurologic: Awake, Alert, and Oriented x 3 Psych: Pleasant, Cooperative, Appropriate mood, Appropriate affect LINES ALL Duration Implanted IV Device Left Chest -- days STUDIES: Labs and other studies reviewed. CBC Lab Results Component Value Date/Time WBC 4.50 01/23/2024 06:08 AM WBC 3.23 (L) 05/11/2020 11:59 AM HGB 8.2 (L) 01/23/2024 06:08 AM HGB 14.0 05/11/2020 11:59 AM HCT 25.6 (L) 01/23/2024 06:08 AM HCT 41.9 05/11/2020 11:59 AM PLT 197 01/23/2024 06:08 AM PLT 289 05/11/2020 11:59 AM BMP Lab Results Component Value Date/Time NA 136 01/23/2024 06:08 AM NA 141 05/11/2020 11:59 AM POTASSIUM 3.9 01/23/2024 06:08 AM POTASSIUM 3.9 05/11/2020 11:59 AM CL 107 01/23/2024 06:08 AM CL 107 05/11/2020 11:59 AM CO2 20 (L) 01/23/2024 06:08 AM CO2 20 (L) 05/11/2020 11:59 AM BUN 13 01/23/2024 06:08 AM BUN 5 (L) 05/11/2020 11:59 AM CREAT 0.6 01/23/2024 06:08 AM CREAT 0.8 05/11/2020 11:59 AM Ca, Mg, Phos Lab Results Component Value Date/Time CA 8.4 01/23/2024 06:08 AM CA 8.9 05/11/2020 11:59 AM MG 2.0 01/23/2024 06:08 AM MG 2.2 01/30/2019 04:10 PM PHOSPHORUS 4.6 01/23/2024 06:08 AM PHOSPHORUS 3.2 08/06/2017 12:00 AM PHOSPHORUS 2.7 09/20/2013 12:17 PM Hepatic Function Panel Lab Results Component Value Date/Time TBIL 0.7 01/23/2024 06:08 AM TBIL 0.4 05/11/2020 11:59 AM ALKP 140 (H) 01/23/2024 06:08 AM ALKP 140 05/11/2020 11:59 AM AST 12 01/23/2024 06:08 AM AST 22 05/11/2020 11:59 AM ALT 16 01/23/2024 06:08 AM ALT 15 05/11/2020 11:59 AM PROT 4.8 (L) 01/23/2024 06:08 AM PROT 7.1 05/11/2020 11:59 AM Coags Lab Results Component Value Date/Time INR 1.11 03/19/2017 10:10 AM Arterial Blood Gas No results found for: "PH", "PCO2", "PO2", "HCO3" IMAGING: XR KNEE 4 OR MORE VIEWS Narrative: EXAM XR KNEE 4 OR MORE VIEWS-01/14/2024 4:30 pm HISTORY left knee pain after fall TECHNIQUE Four views of the left knee are provided. COMPARISON Radiographs of the left knee dated 08/22/2022 FINDINGS No acute fracture or subluxation. Joint spaces are preserved. Bone mineralization is appropriate for age. No lytic or blastic lesion. Impression: IMPRESSION No radiographic evidence of acute osseous injury. Prior to Admission medications Medication Sig Last Dose Discont. Dupixent 300 MG/2ML Subcutaneous Solution Pen-injector (Dupilumab) Maintenance Dose: Inject 300mg (1 pen) under the skin every two weeks. 01/21/2024 Diclofenac Sodium 1 % External Gel (Voltaren) Apply 4 g topically to affected area in the morning and 4 g at noon and 4 g in the evening and 4 g before bedtime. Apply to left knee. 01/21/2024 hydrOXYzine Pamoate 25 MG Oral Capsule (Vistaril) Take 1 Capsule by mouth 3 times a day as needed for Anxiety (Sleep). 01/21/2024 Sertraline HCl 100 MG Oral Tablet (Zoloft) Take 1 Tablet by mouth in the morning. 01/22/2024 Folic Acid 1 MG Oral Tablet Take 2 Tablets by mouth in the morning. 01/22/2024 Fexofenadine-Pseudoephed ER 180-240 MG Tablet Extended Release 24 Hour (Gemma- D Allergy & Congestion) Take 1 Tablet by mouth in the morning. 01/22/2024 Venlafaxine HCl 50 MG Oral Tablet (Effexor) Take 1 Tablet by mouth in the morning and 1 Tablet before bedtime. With food.. 01/22/2024 Omeprazole 40 MG Oral Capsule Delayed Release (PriLOSEC) Take 1 Capsule (40 mg) by mouth in the morning and 1 Capsule (40 mg) before bedtime. 01/21/2024 Topiramate 50 MG Oral Tablet (topAMAX) TAKE 1 TABLET BY MOUTH TWICE A DAY 01/22/2024 Cholecalciferol (VITAMIN D3) 5000 UNITS Tablet Take 1 Cap by mouth daily. Take with additonal 1000 units for total of 6000 units daily Patient taking differently: Take 1 Capsule by mouth in the morning. Take with additional 1000 unitsfor total of 6000 units daily.. 01/21/2024 FLINTSTONES COMPLETE PO CHEW daily 01/22/2024 Albuterol Sulfate HFA 108 (90 Base) MCG/ACT Inhalation Aerosol Solution INHALE 2 PUFFS BY MOUTH EVERY FOUR HOURS NEEDED FOR WHEEZING Over 30 Days EPINEPHrine 0.3 MG/0.3ML Injection Solution Auto-injector (Autoinjector) For a severe reaction: Inject in outer thigh following instructions on package and go to the Emergency room. Patient not taking: Reported on 01/17/2024 Not Taking Fluocinonide 0.05 % External Ointment Apply to rash behind knees, elbows, trunk twice a day for 2 weeks Over 30 Days Clobetasol Propionate 0.05 % External Cream (Temovate) Apply topically to affected area 2 times a day. To affected area for up to two weeks. Patient not taking: Reported on 01/17/2024 Over 30 Days Triamcinolone Acetonide 0.1 % External Cream (Aristocort) Apply topically to affected area 2 times a day. Apply to rash areas. Over 30 Days Promethazine HCl 25 MG Oral Tablet (Phenergan) Take 1 Tablet by mouth every 6 hours as needed for Nausea. or vomiting Over 30 Days Rizatriptan Benzoate 10 MG Oral Tablet (Maxalt) one at onset. May repeat two hour if neeed Over 30 Days Albuterol Sulfate (2.5 MG/3ML) 0.083% Inhalation Nebulization Solution (Proventil) USE ONE VIAL IN NEBULIZER EVERY 4 HOURS NEEDED FOR WHEEZING DX: J45.30 Over 30 Days medroxyPROGESTERone Acetate 150 MG/ML Intramuscular Suspension (Depo-Provera) INJECT 150 MG INTO A LARGE MUSCLE EVERY 3 MONTHS. Over 30 Days Glucose Blood (ONETOUCH VERIO) STRP Test blood sugar once daily as directed. Dx: E16.2 ONETOUCH DELICA LANCETS 33G MISC Test blood sugar once daily as directed. Dx: E16.2 Ocrelizumab 300 MG/10ML Intravenous Solution Administer intravenously. Every 6 months Over 30 Days vitamin b-12 (CYANOCOBALAMIN) 1000 MCG/ML injection Inject 1,000 mcg into a large muscle every 30 days. Over 30 Days Cranberry 500 MG Capsule Take 1 Capsule by mouth in the morning. 01/16/2024 Current Facility-Administered Medications Medication Dose Route Frequency Provider Last Rate Last Admin Acetaminophen (Tylenol) tab 650 mg 650 mg Oral Q6H PRN Callie Ngo MD Albuterol Sulfate (Proventil) (2.5 MG/3ML) 0.083% inhalation solution 2.5 mg 2.5 mg Nebulizer Q4H PRN Callie Ngo MD chlorhexidine gluconate cloth 2 % pad External Daily 1000 Callie Ngo MD Famotidine (Pepcid) inj 20 mg 20 mg IV Push Q12H Callie Ngo MD guaiFENesin (Robitussin) oral liquid 200 mg 200 mg Oral Q4H PRN Callie Ngo MD hydrOXYzine HCl tab 25 mg 25 mg Oral TID PRN Callie Ngo MD melatonin tab 3 mg 3 mg Oral HS PRN Callie Ngo MD morphine sulfate inj 1 mg 1 mg IV Push Q6H PRN Callie Ngo MD NSS infusion Intravenous Continuous Callie Ngo MD 75 mL/hr at 01/23/24 0615 Rate Verify at 01/23/24 0615 ondansetron (Zofran) inj 4 mg 4 mg IV Push Q6H PRN Callie Ngo MD Oral Hygiene: Mouth Swab with dentifrice Oral After Meals and at Bedtime Callie Ngo MD Givenat 01/22/24 2330 Pantoprazole (Protonix) 80 mg in NSS 500 mL INFUSION 8 mg/hr Intravenous Continuous Callie Ngo MD 50 mL/hr at 01/23/24 0615 8 mg/hr at 01/23/24 0615 sertraline (Zoloft) tab 100 mg 100 mg Oral Daily(AM) Callie Ngo MD sodium chloride 0.9 % flush central line 10 mL 10 mL IV Push Q8H Callie gNo MD 10 mL at 01/22/24 2330 sodium chloride 0.9 % flush/inj 3 mL 3 mL IV Push PRN Callie Ngo MD topiramate (topAMAX) tab 50 mg 50 mg Oral BID(AM/PM) Callie Ngo MD venlafaxine (Effexor) tab 50 mg 50 mg Oral Daily(AM) Callie Ngo MD Active Hospital Problems Diagnosis *Principal Diagnosis - Gastrointestinal hemorrhage with melena Hematemesis Upper GI bleed AUDELIA (generalized anxiety disorder) Postgastric surgery syndrome Resolved Hospital Problems No resolved problems to display. IMPRESSION and PLAN: Shaunna Jerome is a 33 year old female with history significant for multiple sclerosis on ocrelizumab, gastric bypass and stent placed for stricture by GI for gastrojejunal anastomosis and Stent was removed on 01/16. 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 Upper GI bleed ABLA Recent history of endoscopy with stent removal for stricture History of gastric bypass Sinus Tachycardia On IV PPI gtt Transfuse pRBC PRN for goal Hgb > 7. Avoid iatrogenic anemia and over transfusion. 2 large bore (18 gauge or larger) PIVs in place. GI consulted, appreciate recommendations Tentative plan for EGD +/- colonoscopy. Early AM labs. Goal: Keep Hgb > 7, INR < 2, Plts > 20, K > 3.5, and Na within 5 of ref range prior to procedure for safe anesthesia administration (replace PRN). Can consider push enteroscopy, capsule endoscopy if no source of bleeding identified on EGD/colonoscopy. If patient becomes unstable for endoscopy or recurrent bleeding, can consider IR embolization or General surgery evaluation. Can consider obtaining tagged RBC scan or CT Angiography. Holding anticoagulation and chemical VTE prophylaxis in the setting of bleed. Chronic Problems: Multiple sclerosis: On immunomodulator. Recent dosing November. Mood disorder: Resume V[employer]ER sertraline and Effexor S/p gastric bypass Misc: Diet: NPO except meds pending GI intervention VTE Prophylaxis: SCBs & TEDS Code Status: Code Status: Full Code Disposition: Med/Surg Patient will be seen and examined by attending physician, DO Levy Looney MD Internal Medicine-Pediatrics, PGY4 [facility] [place] [facility] This note has been completed using dictation software M Modal Fluency Direct. Grammatical errors, missed words, incorrect word insertion may occur when dictating using this software. Should there be any questions, concerns or confusion about the information contained in this note, please reach out to the chief writer for clarification via TT or phone number below. Thank you. Associated attestation - Juan C Salinas DO - 01/23/2024 4:49 PM EDT I saw and evaluated the patient today. I have reviewed the resident/fellow physician note and agree. I spent a total of 52 minutes coordinating, documenting, and providing care for this patient excluding time spent in the performance of separately billed services. documented in this encounter H&P Notes * Amado Alvarez, - 01/23/2024 2:01 PM EDT Endoscopy Pre-Procedure Assessment Name: Shaunna Jerome Date: 01/23/2024 Time: 2:01 PM Procedure(s): Upper GI Endoscopy; with Indication(s) of evaluation and management of GI bleeding and/or iron-deficiency anemia Endoscopy Pre-Procedure Assessment: Prior to the procedure, the patient is identified. The patient's history, medications and allergieshave been reviewed. The patient is competent. The risks and benefits of the proposed procedure and the planned sedation have been discussed with the patient. All questions have been answered and informed consent for the procedure has been obtained. Prior to Admission medications Medication Sig Last Dose Discont. Dupixent 300 MG/2ML Subcutaneous Solution Pen-injector (Dupilumab) Maintenance Dose: Inject 300mg (1 pen) under the skin every two weeks. 01/21/2024 Diclofenac Sodium 1 % External Gel (Voltaren) Apply 4 g topically to affected area in the morning and 4 g at noon and 4 g in the evening and 4 g before bedtime. Apply to left knee. 01/21/2024 hydrOXYzine Pamoate 25 MG Oral Capsule (Vistaril) Take 1 Capsule by mouth 3 times a day as needed for Anxiety (Sleep). 01/21/2024 Sertraline HCl 100 MG Oral Tablet (Zoloft) Take 1 Tablet by mouth in the morning. 01/22/2024 Folic Acid 1 MG Oral Tablet Take 2 Tablets by mouth in the morning. 01/22/2024 Fexofenadine-Pseudoephed ER 180-240 MG Tablet Extended Release 24 Hour (Gemma- D Allergy & Congestion) Take 1 Tablet by mouth in the morning. 01/22/2024 Venlafaxine HCl 50 MG Oral Tablet (Effexor) Take 1 Tablet by mouth in the morning and 1 Tablet before bedtime. With food.. 01/22/2024 Omeprazole 40 MG Oral Capsule Delayed Release (PriLOSEC) Take 1 Capsule (40 mg) by mouth in the morning and 1 Capsule (40 mg) before bedtime. 01/21/2024 Topiramate 50 MG Oral Tablet (topAMAX) TAKE 1 TABLET BY MOUTH TWICE A DAY 01/22/2024 Cholecalciferol (VITAMIN D3) 5000 UNITS Tablet Take 1 Cap by mouth daily. Take with additonal 1000 units for total of 6000 units daily Patient taking differently: Take 1 Capsule by mouth in the morning. Take with additional 1000 unitsfor total of 6000 units daily.. 01/21/2024 FLINTSTONES COMPLETE PO CHEW daily 01/22/2024 Albuterol Sulfate HFA 108 (90 Base) MCG/ACT Inhalation Aerosol Solution INHALE 2 PUFFS BY MOUTH EVERY FOUR HOURS NEEDED FOR WHEEZING Over 30 Days EPINEPHrine 0.3 MG/0.3ML Injection Solution Auto-injector (Autoinjector) For a severe reaction: Inject in outer thigh following instructions on package and go to the Emergency room. Patient not taking: Reported on 01/17/2024 Not Taking Fluocinonide 0.05 % External Ointment Apply to rash behind knees, elbows, trunk twice a day for 2 weeks Over 30 Days Clobetasol Propionate 0.05 % External Cream (Temovate) Apply topically to affected area 2 times a day. To affected area for up to two weeks. Patient not taking: Reported on 01/17/2024 Over 30 Days Triamcinolone Acetonide 0.1 % External Cream (Aristocort) Apply topically to affected area 2 times a day. Apply to rash areas. Over 30 Days Promethazine HCl 25 MG Oral Tablet (Phenergan) Take 1 Tablet by mouth every 6 hours as needed for Nausea. or vomiting Over 30 Days Rizatriptan Benzoate 10 MG Oral Tablet (Maxalt) one at onset. May repeat two hour if neeed Over 30 Days Albuterol Sulfate (2.5 MG/3ML) 0.083% Inhalation Nebulization Solution (Proventil) USE ONE VIAL IN NEBULIZER EVERY 4 HOURS NEEDED FOR WHEEZING DX: J45.30 Over 30 Days medroxyPROGESTERone Acetate 150 MG/ML Intramuscular Suspension (Depo-Provera) INJECT 150 MG INTO A LARGE MUSCLE EVERY 3 MONTHS. Over 30 Days Glucose Blood (ONETOUCH VERIO) STRP Test blood sugar once daily as directed. Dx: E16.2 ONETOUCH DELICA LANCETS 33G MISC Test blood sugar once daily as directed. Dx: E16.2 Ocrelizumab 300 MG/10ML Intravenous Solution Administer intravenously. Every 6 months Over 30 Days vitamin b-12 (CYANOCOBALAMIN) 1000 MCG/ML injection Inject 1,000 mcg into a large muscle every 30 days. Over 30 Days Cranberry 500 MG Capsule Take 1 Capsule by mouth in the morning. 01/16/2024 Review of patient's allergies indicates: Allergen Reactions Robaxin [Methocarbamol] Rash Hydrocodone Other reaction(s): Itching Cephalexin Hives As a small child Clindamycin Hives " And bad heartburn" As an adult about age 24 Sulfa Antibiotics Hives As a small child Vicodin [Hydrocodone-Acetaminophen] Itching BP 120/73 | Pulse 102 | Temp 36 C (96.8 F) (Tympanic) | Resp 20 | SpO2 98% Physical Exam: Mental Status Examination: alert and oriented. Airway Examination: normal oropharyngeal airway and neck mobility. Respiratory Examination: clear to auscultation. CV Examination: normal. ASA Grade: III - A patient with severe systemic disease. Abdomen: normal active bowel sounds This patient has undergone a preprocedural evaluation. A determination has been made to proceed with the planned procedure under [facility] [place] procedural guidelines and the [facility] Non-Emergent, Elective Medical Services and Treatment Recommendations (published on 08-11-19). The community and hospital prevalence of COVID-19 has been discussed as well as this patient's specific risks associated with SARS-CoV-19 infection. Based upon the clinical acuity and patient-specific care considerations, this procedure is deemed a Tier II - Intermediate acuity treatment or service with either progression or the threat of progressive disease related to the delay in treatment. Not providing the service has the potential for increasing morbidity or mortality. After reviewing the risks and benefits, the patient is deemed in satisfactory condition to undergo the procedure. The anesthesia plan is to use monitored anesthesia care (MAC). Amado Alvarez DO 01/23/2024 * Callie Ngo MD - 01/22/2024 10:24 PM EDT Images from the original note were not included. [facility] B743/[facility] PRESENTING PROBLEM: Hematemesis and abdominal pain HPI: 33 year old female with past medical history of multiple sclerosis on ocrelizumab, gastric bypass and 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 Patient was seen at [facility] today where she presented with vomiting, abdominal pain, heartburn blood in the stool and hematemesis. Patient reports that her stent was removed on Saturday since then she was sick to stomach and was unable to keep anything down. However no vomiting until today. Unable to quantify how much blood was in vomitus. Her mom at bedside assists with history. She reports after stent removal it was mentioned toher that procedure was complicated with stomach tear. She is not any anticoagulation Currently tachycardic however blood pressure is stable. On room air. At outlying facility her Hgb 10.3, was 11.3 in April of last year. currently, on Protonix gtt with pepcid. CT shows: Wall thickening at JG anas tomosis, possible infectious / inflammatory process. No bowel obstruction Cr 0.44. Labs: WBC 7. Cr 0.44. Hgb 10.3 Subjective Patient's past history, medications, and allergies were reviewed. Objective Physical Exam Most Recent Vital Signs: BP: 126 mmHg/82 mmHg (01/22/242205) Pulse: 130 (01/22/242205) Resp: 16 (01/22/242205) Temp: Temp Summary: No data recorded SpO2: 100 % (01/22/242205) O2 flow rate: Supplemental O2 Delivery: Constitutional: no acute distress HEENT: Port present CV: normal rate, normal rhythm, (+) tachycardic Chest: normal respiratory effort, lungs clear to auscultation and percussion Abdomen: normal: soft, epigastric tenderness bowel sounds normal, no masses, or organomegaly Musculoskeletal: (-) negative Extremities: no clubbing, cyanosis, or edema, otherwise grossly normal, warm, and dry Neuro: alert, oriented to person, place, and time, normal mental status exam, gait normal, reflexesnormal and symmetric, sensory normal STUDIES: Encounter Orders Labs and other studies reviewed with pertinent findings noted below: Assessment and Plan IMPRESSION: Principal Problem: Gastrointestinal hemorrhage with melena Active Problems: Postgastric surgery syndrome AUDELIA (generalized anxiety disorder) Hematemesis Upper GI bleed Resolved Problems: * No resolved hospital problems. * DIFFERENTIAL AND PLAN: #Acute blood loss anemia #Upper GI bleed with hematemesis and melena #Recent history of endoscopy with stent removal for stricture #History of gastric bypass # sinus tachycardia due to above -2 large IV bore. -start her on IV Protonix continuous -check hemoglobin and hematocrit. Transfuse if below 7 -telemetry monitoring. -GI consult. Keep NPO after midnight Other comorbidities Multiple sclerosis: On immunomodulator. Recent dosing November. Mood disorder: Resume V[employer]ST[employer]ER sertraline and Effexor S/p gastric bypass Mother present at bedside. Updated and all questions answered. PHARMACOLOGIC VTE PROPHYLAXIS:This patient does not have an active medication from one of the medication groupers. CODE STATUS: Full Code EXPECTED DISCHARGE DATE: No information available I spent a total of 78 minutes coordinating, documenting, and providing care for this patient excluding time spent in the performance of separately billed services. documented in this encounter Procedure Notes * Juan C Salinas DO - 01/23/2024 2:04 PM EDTAssociated Order(s): UPPER GI ENDOSCOPY [facility] Patient Name: Shaunna Jerome Procedure Date: 01/23/2024 2:04 PM Date of : 1990 Admit Type: Inpatient Note Status: Finalized Date of : 1990 Admit Type: Inpatient Age: 33 Room: Endo - Room 8 Gender: Female Note Status: Finalized Procedure: Upper GI endoscopy Indications: Suspected upper gastrointestinal bleeding Providers: Amado Alvarez DO (Doctor), Eve Ramos (Fellow) Patient Profile: This is a 33 year old female. Refer to note in patient chart for documentation of history and physical. Referring MD: Juan C Salinas MD, Jaclyn So MD Medicines: Monitored Anesthesia Care Complications: No immediate complications. Procedure: Pre-Anesthesia Assessment: - Rueter Protocol: - Pre-procedure Verification: Prior to the procedure, the patient's identity was verified by full name, date of and medical record number. The patient's identity was verified on all pertinent medical records, including History and Physical. Also prior to the procedure, a History and Physical was performed, and patient medications, allergies and sensitivities were reviewed. The patient's tolerance of previous anesthesia was reviewed. The patient is competent. The risks and benefits of the procedure and the sedation options and risks were discussed with the patient. All questions were answered and informed consent was obtained. - Marking: The endoscopic procedure was visually marked on a patient wrist band delineating the patient name, proposed procedure and endoscopist's initials. - Time-Out: Prior to the start of the procedure, the patient's identification, proposed procedure, accurate signed consent, correctly labeled images and records, and need for prophylactic antibiotics were verified by the physician, the nurse and the corporate real estate manager in the procedure room. - The supervising physician was present for the entire procedure from scope insertion until scope withdrawal. After obtaining informed consent, the endoscope was passed under direct vision. All instruments were visually inspected immediately before and after removal from the patient to ensure they are fully intact. Throughout the procedure, the patient's blood pressure, pulse, and oxygen saturations were monitored continuously. The GIF [id number] Endoscope([id number]) was introduced through the mouth, and advanced to the jejunum. Findings & Specimens: The examined esophagus was normal. 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 Previous suture was found in the stomach. Localized severely friable mucosa with contact bleeding was found in the gastric body. The examined jejunum was normal. Impression: - Normal esophagus. - Gastric-gastric fistula. - Friable gastric mucosa. - Normal examined jejunum. - No specimens collected. Recommendation: - Return patient to hospital loving for ongoing care. - Follow GI consult team recommendations. Amado Alvarez DO 01/23/2024 2:57:37 PM This report has been signed electronically. Eve Ramos, Estimated Blood Loss: Estimated blood loss: none. documented in this encounter Consult Notes * Jaclyn So MD - 01/23/2024 2:31 PM EDTAssociated Order(s): GASTROENTEROLOGY CONSULT IP CONSULT - Gastroenterology [facility] [place] [id number] Name: Shaunna Jerome Date: 01/23/2024 Time: 2:31 PM REQUESTING SERVICE: Med S REASON FOR CONSULT: 'blood loss anemia and melena. recent hx of stent remove for stritcure. 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 She started to have abdominal pain shortly after her procedure, and had her follow up endoscopy moved up. A few days later prior to arrival she started experiencing nausea with vomiting, reported bright red blood. May have seen black tarry stools this AM. 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 PONV (postoperative nausea and vomiting) Past Surgical History: Past Surgical History: Procedure Laterality Date ANESTHESIA FOR CAT OR MRI SCAN N/A 06/21/2022 ANESTHESIA FOR NON-INVASIVE IMAGING (MRI OR CT) performed by In And Out Surgery [facility] at [facility] ANESTHESIA FOR CAT OR MRI SCAN N/A 01/16/2024 ANESTHESIA FOR NON-INVASIVE IMAGING (MRI OR CT) performed by [facility], In And Out Surgery at [facility] EGD, FLEXIBLE, DIAGNOSTIC 07/16/2011 UPPER GI ENDOSCOPY DIAGNOSTIC performed by GAURAV AGUILERA III at [facility] EGD, FLEXIBLE, DIAGNOSTIC 08/09/2011 UPPER GI ENDOSCOPY DIAGNOSTIC performed by GAURAV AGUILERA III at [facility] EGD, FLEXIBLE, DIAGNOSTIC 12/03/2011 UPPER GI ENDOSCOPY DIAGNOSTIC performed by Gaurav Aguilera III, MD at [facility] EGD, FLEXIBLE, DIAGNOSTIC 06/03/2013 ESOPHAGOGASTRODUODENOSCOPY (EGD), FLEXIBLE, TRANSORAL, DIAGNOSTIC performed by Gaurav Aguilera III, MD at [place] [facility] [place]GD, FLEXIBLE, DIAGNOSTIC 08/06/2013 ESOPHAGOGASTRODUODENOSCOPY (EGD), FLEXIBLE, TRANSORAL, DIAGNOSTIC performed by Caesar De aL [facility] [place]OSCOPY [facility] EGD, FLEXIBLE, DIAGNOSTIC 09/22/2013 ESOPHAGOGASTRODUODENOSCOPY (EGD), FLEXIBLE, TRANSORAL, DIAGNOSTIC performed by Gaurav Aguilera III, MD at [facility] EGD, FLEXIBLE, DIAGNOSTIC N/A 11/10/2014 ESOPHAGOGASTRODUODENOSCOPY (EGD), FLEXIBLE, TRANSORAL, DIAGNOSTIC performed by Gaurav Aguilera MD at [place]OS[place] [facility] EGD, FLEXIBLE, DIAGNOSTIC 06/26/2019 normal / ESOPHAGOGASTRODUODENOSCOPY (EGD), FLEXIBLE, TRANSORAL, DIAGNOSTIC performed by Carmelo Brooks MD at ENDOSCOPY [facility] EGD, FLEXIBLE, DIAGNOSTIC 04/07/2020 normal / ESOPHAGOGASTRODUODENOSCOPY (EGD), FLEXIBLE, TRANSORAL, DIAGNOSTIC performed by Carmelo Brooks MD at ENDOSCOPY [facility] EGD, FLEXIBLE, DIAGNOSTIC 12/22/2021 gastrojejunal anastomosis ulcer w/ active bleeding / INPT [facility] EGD, FLEXIBLE, DIAGNOSTIC N/A 03/19/2023 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/repeat 3 months/ESOPHAGOGASTRODUODENOSCOPY (EGD), FLEXIBLE, TRANSORAL, DIAGNOSTIC performed by Anita Ha MD at OR [facility] EGD, FLEXIBLE, DIAGNOSTIC 11/09/2022 Non-severe esophagitis, severe stenosis and ulceration - gastrojejunal anastomosis / [facility] EGD, FLEXIBLE, DIAGNOSTIC N/A 02/07/2023 [id number] gastrojejunostomy with gastrojejunal anastomosis, severe stenosis/schedule Axios stent/EGD/CO EGD, FLEXIBLE, DIAGNOSTIC N/A 01/17/2024 ESOPHAGOGASTRODUODENOSCOPY (EGD), FLEXIBLE, TRANSORAL, DIAGNOSTIC performed by Anita Ha MD at OR [facility] EGD, FLEXIBLE, TRANSENDOSCOPIC DILATION <30MM N/A 11/10/2014 ESOPHAGOGASTRODUODENOSCOPY (EGD), FLEXIBLE, TRANSORAL, BALLOON DILATION LESS THAN 30MM performed byGaurav Aguilera MD at [place] [facility] GASTRIC REVISION FOR OBESITY 05/31/2008 GASTRIC RESTRICTIVE PROCEDURE WITH BYPASS performed by GAURAV AGUILERA III at [facility] INFORMATION dental INFORMATION 10/06/2009 [facility] placement of A-port central venous access catheter tunneled with port via left subclavian apporach 10/06/[address] [facility] ACC DEV;5 YRS/OLDER Right 04/12/2015 INSERT TUNNELED CENTRAL VENOUS ACCESS WITH SUBQ PORT performed by Fabio Dobbins MD at [facility] INSER TUNN ACC DEV;5 YRS/OLDER N/A 08/09/2015 INSERT TUNNELED CENTRAL VENOUS ACCESS WITH SUBQ PORT performed by Terrance Curry MD at [facility] LAPAROSCOPY; CHOLECYSTECTOMY 02/17/2013 02/17/[address] [facility], Laparoscopic cholecystectomy Dr. Crowell with school office assistant Dino Theodore PA-C MAXIL SINUS ENDOSCOPY W/TISS REMOVE Bilateral 12/26/2018 NASAL SINUS ENDOSCOPY MAXILLA ANTROSTOMY REMOVE TISSUE performed by Anna Ferro MD at [facility] MISCELLANEOUS ORDER ([facility] ONLY) Aport NASAL ENDOSCOPY,TOTAL ETHMOIDECTOMY Bilateral 12/26/2018 NASAL SINUS ENDOSCOPY WITH ETHMOIDECTOMY TOTAL performed by Anna Ferro MD at [facility] NASAL/SINUS ENDOSCOPY, SURGICAL Right 12/26/2018 NASAL SINUS ENDOSCOPY WITH EVA BULLOSA RESECTION performed by Anna Ferro MD at [facility] NASAL/SINUS ENDOSCOPY, SURGICAL Bilateral 12/26/2018 NASAL SINUS ENDOSCOPY FRONTAL SINUS EXPLORATION REMOVE TISSUE performed by Anna Ferro MD at [facility] REMOVAL OF TONSILS, UNDER AGE 12 REPAIR OF NASAL SEPTUM N/A 12/26/2018 SEPTOPLASTY performed by Anna Ferro MD at OR [facility] STEREOTACTIC CRANIAL EXTRADURAL NAVIGATION N/A 12/26/2018 STEREOTACTIC CRANIAL EXTRADURAL NAVIGATION performed by Anna Ferro MD at [facility] THERAPEUTIC FRACTURE OF NOSE Bilateral 12/26/2018 FRACTURE OF NASAL TURBINATES THERAPEUTIC performed by Anna Ferro MD at [facility] WEDGE BIOPSY OF LIVER 05/31/2008 BIOPSY OF LIVER WEDGE performed by GAURAV AGUILERA III [place] [facility] Social History: Social History Tobacco Use Smoking status: Never Smokeless tobacco: Never Tobacco comments: no passive smoke exposures Vaping Use Vaping status: Never Used Substance Use Topics Alcohol use: Yes Alcohol/week: 1.0 - 2.0 standard drink of alcohol Types: 1 - 2 12 oz of beer per week Comment: occassional Drug use: No Family History: Family History Problem Relation Name Age of [...] Migraines Mother Kajal Arthritis Grandmother (Maternal) Elizabeth Allergies: Robaxin [methocarbamol], Hydrocodone, Cephalexin, Clindamycin, Sulfa antibiotics, and Vicodin [hydrocodone-acetaminophen] ROS: As noted in HPI. Rest negative. PHYSICAL EXAMINATION: Most Recent Vital Signs: BP: 118 mmHg/73 mmHg (01/23/24 1430) Pulse: 88 (01/23/24 1430) Resp: 16 (01/23/24 1430) Temp: 36 C (01/23/24 1350) Temp Summary: Temp Min: 36 C (96.8 F) Max: 37.2 C (99 F) SpO2: 100 % (01/23/24 1430) O2 flow rate: Supplemental O2 Delivery: Room Air, None (01/23/24 1355) Vital Signs Last 24 Hours: Systolic BP: Most Recent Systolic BP Av.4 mmHg Min: 107 mmHg Max: 126 mmHg Temperature: Most Recent Temperature Av.8 C Min: 36 C Max: 37.22 C Pulse: Pulse Av.3 Min: 81 Max: 130 Respirations: Resp Av.9 Min: 16 Max: 22 SpO2: SpO2 Av.7 % Min: 98 % Max: 100 % Constitutional: NAD. A&Ox3. HEENT: NC/AT. No oral lesions. Eyes: PERRLA. Neck: Supple, normal range of motion. CV: RRR. Normal S1/S2. No murmur, gallops, or rubs. Chest: CTA bilat. No wheezing, rhonchi, or crackles. Abdomen: Soft, NT/ND. BSx4. No appreciable ascites. Extremities: No edema. Radial pulses +2. Skin: Warm and dry, no rashes. Neuro: Moves all extremities. LABS: Reviewed in [facility]. IMAGING: Reviewed in [facility]. 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 Hgb 8.6 from baseline 11.1. Last EGD done 01/17/24 showed normal appearing GJ anastamosis and axios stent was removed. 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 Friable gastric mucosa was visualized with contact bleeding in the gastric body which may have been cause of patient's symptoms, however no other sites of obvious bleeding. RECOMMENDATIONS: -continue IV PPI twice daily, can continue BID dosing at discharge x 6 weeks with daily dosing thereafter -continue to observe for signs symptoms of bleeding - monitor HGB transfuse for less than 7 -endoscopy as previously scheduled with Dr. Ha on 02/13/2024 -we will sign off on this time, TT with any questions or concerns I have discussed the case with my attending, Dr Alvarez. Associated attestation - Amado Alvarez DO - 01/24/2024 9:31 AM EDT I saw and evaluated the patient 01/23/2024. I have reviewed the resident/fellow physician note and agree. documented in this encounter Nursing Notes * Latoya Sandhu RN - 01/23/2024 2:42 PM EDT DISCHARGE PROGRESS NOTE - [place] [facility] [address] Name: Shaunna Jerome [facility]: [facility] HFAM/Endo Date: 01/23/2024 Time: 2:42 PM Patient is discharged under the care of : Transport Report called to Inpatient unit BP 7 Means of transportation: bed Bronchoscopy: N/A Oxygen support: N/A Seen by anesthesia, may be discharged. Per verbal order, the physician has examined the patient, prescribed and verified the charted medication, and certified that she is recovered and may return to the nursing loving. * Joesph Croft RN - 01/23/2024 2:07 PM EDT Procedure being completed under general anesthesia. Please see anesthesia record for medications and vital signs. * Carola Castro RN - 01/23/2024 1:46 PM EDT Patient or the Patients Legally Authorized Marketing Database Analyst has been advised that (1) the Patient meets criteria for testing and (2) the administration of anesthesia, radiation or other imaging agents may have a harmful impact to an unborn child. The Patient or Patients Representativewere offered the opportunity to ask questions as to necessity of such testing and potential outcomes. Consent for testing has been declined. * Ana Greene RN - 01/22/2024 10:13 PM EDT Dual Licensed Skin Assessment completed by Uli Hernandez RN and Ana Lockett RN. The patient is/has a N/A Skin Breakdown (includes non blanchable erythema): No documented in this encounter Miscellaneous Notes * Care Plan - Ana Greene RN - 01/24/2024 2:02 AM EDT Clinical Goal(s): pt safety (01/23/241952) Possible barriers to meeting goal(s)/advancing plan of care: Disease process Stability of the patient: Moderately stable - low risk of patient condition declining or worsening Summary regarding today's goal(s): Met: Recommendations: Continue with care plan * Ancillary Progress Note - Kali Omalley RN - 01/23/2024 12:18 PM EDT CARE MANAGEMENT - ADULT INITIAL SCREENING [facility] [address] Name: Shaunna Jerome [place] [facility] Date: 01/23/2024 Time: 12:18 PM Discussed patient with the interdisciplinary care team. This Tipple Supervisor performed a chart review and met with patient at bedside to complete admission screen and assessed needs for transition planning. The acute care nurse role and services were explained and emotional support was provided. Chief Complaint: No chief complaint on file. Prior Living Arrangements What was your living situation prior to admission/observation?: Independently;With Parent () Living Quarters: House (01/23/24 1216) Number of steps to enter living quarters:: KYLE-1 (01/23/241215) Do you have serious difficulty walking or climbing stairs? (5 years old or older): No (01/22/242208) History of falling: No (01/23/24 1100) Prior Level of Functioning Describe the patient's ability prior to admission/observation to perform ADLs: Performs independently (01/23/241215) Describe the patient's mobility status prior to admission: Patient ambulates independently (01/23/241215) Patient uses assistive device: No (01/23/241215) Caregiver Information Patient Contacts Name Relation Home Work Mobile Lashanda Smith [phone] Risk Stratification/Psychosocial/Care Gaps Risk Stratification Psycho Social / Medical Concerns Identified: Adjustment to illness/injury;Multiple Comorbidities;New serious diagnosis (01/23/241215) Accessed [employer] [facility] to connect patients to social care resources: No (01/23/241215) OBRA or OPTIONS needed for placement: No (01/23/241215) Readmission Risk Score: 9.1 (01/23/24 1201) AM-PAC Score With Stairs : 24 (01/22/242205) Prior to Admission Services Services Prior to Admission 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 of Aging (PDA) Waiver Program: N/A (01/23/241215) VENETIAN BLIND INSTALLER Transportation (Services received within the last 30 days): Family/Friends Personal Vehicle (01/23/241215) Outpatient Tipple Supervisor: Patient Care Team: Kenia Bradley RN (Inactive) as Doctor Of Podiatric Medicine (Registered Nurse) Patient/Family Expectations: CM met with pt. CM role/services explained. Pt admitted with upper GI Bleed. EGD pending. Pt lives with parent- supportive/assists pt at home. Pt has at home: rolling walker, cane, shower bench/chair, BSC, w/c. No pt home needs assessed at this time. CM will continue to follow pt to assess discharge needs. Encouraged pt to contact CM with any concerns/questions. Pt denies inpatient rehab stays for ETOH, drugs related within the last 2 years. For further screening information, please refer to the Care Management flow document. * Care Plan - Ana Greene RN - 01/23/2024 4:26 AM EDT Clinical Goal(s): pt safety (01/22/24 2210) Possible barriers to meeting goal(s)/advancing plan of care: Disease process Stability of the patient: Moderately stable - low risk of patient condition declining or worsening Summary regarding today's goal(s): Met: Recommendations: Continue with care plan documented in this encounter Plan of Treatment Upcoming Encounters Date Type Department Care Team (Latest Contact Info) Description 10:30 AM EDT Office Visit Allergy/Immuno logy Alexey Dominique [place] [address] [place] [address] Krystal Thomas PA-C [address] [place] [address] 8:41 AM EDT Hospital Encounter OR [facility], [facility] - [facility] [address] [place] [phone] Anita Ha MD [address] [place] [address] 4 8:41 AM EDT - 9:52 AM EDT Surgery OR [facility], Operating Room, [facility] - 4th Floor [address] [facility] [place] [phone] Anita Ha MD [address] [place] [address] ESOPHAGOGASTRODUODENOSCOPY (EGD), FLEXIBLE, TRANSORAL, DIAGNOSTIC 4 11:30 AM EDT Nurse Only Ancillary [facility] [address] [facility] [place] [address] Nurse, Int Med [address] [facility] PENDING S[facility] TO [facility] [place] [address] 4 3:20 PM EST Office Visit General Internal Medicine [facility] [address] [place] [address] Kimberly Figueroa MD [address] [facility] PENDING S[facility] TO [facility] [place] [address] 4 10:00 AM EST Telemedicine Dermatology, Katarina Santos [address] [facility] [place] [address] Wb, Pharmacist Dermatology E Mtn [facility] [address] [facility] [place] [address] 4 10:00 AM EST Hem/Onc Treatment Hematology/Onc ology Treatment, [place] [address] [facility] [address] Catina, Chair 3 Hem Onc [address] [place] [address] 5 2:30 PM EST Office Visit Otolaryngology [facility] [address] [place] [address] Anna Ferro MD [address] [place] [address] 5 7:00 AM EDT Pharmacy Neurology L[address] [place] [address] Lore, Pharmacist Neurology [address] [place] [address] [place] [phone] Scheduled Orders Name Type Priority Associated Diagnoses Orde r Schedule GLUCOSE METER, POINT OF CARE (COMMUNICATION ORDER) Point of Care Testing Routine As Needed until discontinued starting 01/23/2024 CBC Lab Routine Gastrointestinal hemorrhage with melena Hematemesis with nausea Expected: 01/31/2024, Expires: 01/23/2025 Scheduled Procedures Name Priority Associated Diagnoses Date/Ti [...] this encounter Medical Devices Implanted Type Area Visitor Service Assistant Device Identifier Shelf Expiration Date Model / Serial / Lot Port Pwr Mri Isp Profile - [id number] Implanted:Qty: 1 on 08/09/2015 by Terrance Curry MD [place] [facility] Left: Chest CR BARD : PERIPHERAL VASCULAR 05/02/2017 [id number] / / [id number] Description:27 length of cat heter documented as of this encounter Procedures Procedure Name Priority Date/Time Associated Diagnosis Comments CBC Routine 01/24/2024 11:28 AM EDT BASIC METABOLIC PANEL Routine 01/24/2024 4:21 AM EDT CBC Routine 01/24/2024 4:21 AM EDT CBC Routine 01/23/2024 11:12 PM EDT CBC Routine 01/23/2024 7:51 PM EDT UPPER GI ENDOSCOPY 01/23/2024 2: 04 PM EDT EGD, Flexible, Diagnostic 01/23/2024 1:47 PM EDT Hematemesis CBC Routine 01/23/2024 11:45 AM EDT COMPREHENSIVE METABOLIC PANEL Routine 01/23/2024 6:08 AM EDT PHOSPHORUS Routine 01/23/2024 6:08 AM EDT CBC Routine 01/23/2024 6:08 AM EDT MAGNESIUM Routine 01/23/2024 6:08 AM EDT HEMOGLOBIN AND HEMATOCRIT PANEL Routine 01/23/2024 1:22 AM EDT TYPE AND SCREEN STAT 01/23/2024 1:22 AM EDT documented in this encounter Results * (ABNORMAL) CBC (01/24/2024 11:28 AM EDT) WBC 4.91 4.00 - 10.80 K/uL 01/24/2024 12:01 PM EDT LABORATORY [facility] RBC 2.29 3.85 - 5.15 M/uL 01/24/2024 12:01 PM EDT LAB[facility]ATORY [facility] HGB 8.3(L) 12.0 - 15.3 g/dL 01/24/2024 12:01 PM EDT LABORATORY C HCT 24.6(L) 36.0 - 45.2 % 01/24/2024 12:01 PM EDT LAB[facility]ATORY [facility] MCV 107.4 81.5 - 97.5 fL 01/24/2024 12:01 PM EDT LAB[facility]ATORY [facility] MCH 36.2 27.0 - 34.0 pg 01/24/2024 12:01 PM EDT LABORATORY [facility] MCHC 33.7 32.0 - 36.0 g/dL 01/24/2024 12:01 PM EDT LABORATORY C RDW 13.9 11.5 - 15.5 % 01/24/2024 12:01 PM EDT LABORATORY [facility] PLT 193 140 - 400 K/uL 01/24/2024 12:01 PM EDT LAB[facility]ATORY [facility] MPV 10.2 6.6 - 11.1 fL 01/24/2024 12:01 PM EDT LAB[facility]ATORY [facility] nRBCs 0 <=0 /100 WBCs 01/24/2024 12:01 PM EDT LAB[facility]ATORY [facility] Blood Capillary blood specimen / Unknown Capillary / Unknown 01/24/2024 11:28 AM EDT 01/24/2024 11:34 AM EDT Vikas Royal MD LAB BLOOD ORD ERABLES LABORATORY [facility] [address] [place] [address] * (ABNORMAL) BASIC METABOLIC PANEL (01/24/2024 4:21 AM EDT) BUN 9 6 - 20 mg/dL 01/24/2024 5:10 AM EDT LABORATORY GM CREATININE 0.6 0.5 - 1.0 mg/dL 01/24/2024 5:10 AM EDT LABORATORY [facility] EGFR >90 >=60 mL/min 01/24/2024 5:10 AM EDT LABORATORY [facility] Comment:eGFR is calculated b ased on the CKD-EPI 2020 equation. SODIUM 133(L) 135 - 146 mmol/L 01/24/2024 5:10 AM EDT LABORATORY [facility] POTASSIUM 3.6 3.5 - 5.1 mmol/L 01/24/2024 5:10 AM EDT LABORATORY [facility] CHLORIDE 105 98 - 107 mmol/L 01/24/2024 5:10 AM EDT LAB[facility]ATORY [facility] CO2 20(L) 22 - 32 mmol/L 01/24/2024 5:10 AM EDT LAB[facility]ATORY [facility] ANION GAP 8 7 - 15 mmol/L 01/24/2024 5:10 AM EDT LAB[facility]ATORY [facility] GLUCOSE 96 70 - 120 mg/dL 01/24/2024 5:10 AM EDT LAB[facility]ATORY [facility] CALCIUM 8.5 8.4 - 10.2 mg/dL 01/24/2024 5:10 AM EDT LAB[facility]ATORY [facility] Blood Blood sample taken from central line / Unknown Central Line / Unknown 01/24/2024 4:21 AM EDT 01/24/2024 4:33 AM EDT Vikas Royal MD LAB BLOOD ORD ERABLES LABORATORY [facility] [address] [place] [address] * (ABNORMAL) CBC (01/24/2024 4:21 AM EDT) WBC 4.06 4.00 - 10.80 K/uL 01/24/2024 4:53 AM EDT LABORATORY [facility] RBC 2.12 3.85 - 5.15 M/uL 01/24/2024 4:53 AM EDT LABORATORY [facility] HGB 7.4(L) 12.0 - 15.3 g/dL 01/24/2024 4:53 AM EDT LABORATORY [facility] HCT 23.3(L) 36.0 - 45.2 % 01/24/2024 4:53 AM EDT LABORATORY [facility] MCV 109.9 81.5 - 97.5 fL 01/24/2024 4:53 AM EDT LABORATORY [facility] MCH 34.9 27.0 - 34.0 pg 01/24/2024 4:53 AM EDT LABORATORY [facility] MCHC 31.8 32.0 - 36.0 g/dL 01/24/2024 4:53 AM EDT LABORATORY [facility] RDW 13.8 11.5 - 15.5 % 01/24/2024 4:53 AM EDT LABORATORY [facility] PLT 177 140 - 400 K/uL 01/24/2024 4:53 AM EDT LABORATORY [facility] MPV 9.8 6.6 - 11.1 fL 01/24/2024 4:53 AM EDT LABORATORY [facility] nRBCs 0 <=0 /100 WBCs 01/24/2024 4:53 AM EDT LABORATORY [facility] Blood Blood sample taken from central line / Unknown Central Line / Unknown 01/24/2024 4:21 AM EDT 01/24/2024 4:33 AM EDT Vikas Royal MD LAB BLOOD ORD ERABLES [facility] [address] [place] [address] * (ABNORMAL) CBC (01/23/2024 11:12 PM EDT) WBC 5.20 4.00 - 10.80 K/uL 01/23/2024 11:44 PM EDT LABORATORY [facility] RBC 2.29 3.85 - 5.15 M/uL 01/23/2024 11:44 PM EDT LABORATORY [facility] HGB 8.1(L) 12.0 - 15.3 g/dL 01/23/2024 11:44 PM EDT LABORATORY [facility] HCT 23.9(L) 36.0 - 45.2 % 01/23/2024 11:44 PM EDT LABORATORY [facility] MCV 104.4 81.5 - 97.5 fL 01/23/2024 11:44 PM EDT LABORATORY [facility] MCH 35.4 27.0 - 34.0 pg 01/23/2024 11:44 PM EDT LABORATORY [facility] MCHC 33.9 32.0 - 36.0 g/dL 01/23/2024 11:44 PM EDT LABORATORY [facility] RDW 14.1 11.5 - 15.5 % 01/23/2024 11:44 PM EDT LABORATORY [facility] PLT 189 140 - 400 K/uL 01/23/2024 11:44 PM EDT LABORATORY [facility] MPV 10.2 6.6 - 11.1 fL 01/23/2024 11:44 PM EDT LABORATORY [facility] nRBCs 0 <=0 /100 WBCs 01/23/2024 11:44 PM EDT LABORATORY [facility] Blood Venous blood specimen / Unknown Venipuncture / Unknown 01/23/2024 11:12 PM EDT 01/23/2024 11:28 PM EDT Vikas Royal MD LAB BLOOD ORD ERABLES [facility] [address] [place] [address] * (ABNORMAL) CBC (01/23/2024 7:51 PM EDT) WBC 5.02 4.00 - 10.80 K/uL 01/23/2024 8:21 PM EDT LABORATORY [facility] RBC 2.32 3.85 - 5.15 M/uL 01/23/2024 8:21 PM EDT LABORATORY [facility] HGB 8.2(L) 12.0 - 15.3 g/dL 01/23/2024 8:21 PM EDT LABORATORY [facility] HCT 24.3(L) 36.0 - 45.2 % 01/23/2024 8:21 PM EDT LABORATORY [facility] MCV 104.7 81.5 - 97.5 fL 01/23/2024 8:21 PM EDT LABORATORY [facility] MCH 35.3 27.0 - 34.0 pg 01/23/2024 8:21 PM EDT LABORATORY [facility] MCHC 33.7 32.0 - 36.0 g/dL 01/23/2024 8:21 PM EDT LABORATORY [facility] RDW 14.3 11.5 - 15.5 % 01/23/2024 8:21 PM EDT LABORATORY [facility] PLT 183 140 - 400 K/uL 01/23/2024 8:21 PM EDT LABORATORY [facility] MPV 10.0 6.6 - 11.1 fL 01/23/2024 8:21 PM EDT LABORATORY [facility] nRBCs 0 <=0 /100 WBCs 01/23/2024 8:21 PM EDT LAB[facility]ATORY [facility] Blood Venous blood specimen / Unknown Venipuncture / Unknown 01/23/2024 7:51 PM EDT 01/23/2024 7:57 PM EDT Vikas Royal MD LAB BLOOD ORD ERABLES LABORATORY [facility] [address] [place] [address] * UPPER GI ENDOSCOPY (01/23/2024 2:04 PM EDT) 01/23/2024 2:04 PM EDT Narrative Procedure Note Juan C Salinas DO - 01/23/2024 2:04 PM EDT [facility] Patient Name: Shaunna Jerome Procedure Date: 01/23/2024 2:04 PM Date of : 1990 Admit Type: Inpatient Note Status:Finalized Date of : 1990 Admit Type: Inpatient Age: 33 Room: Endo - Room 8 Gender: Female Note Status: Finalized Procedure: Upper GI endoscopy Indications: Suspected upper gastrointestinal bleeding Providers: Amado Alvarez DO (Doctor), Eve Ramos(Fellow) Patient Profile: This is a 33 year old female. Refer to note inpatient chart for documentation of history and physical. Referring MD: Juan C Salinas MD, Jaclyn So MD Medicines: Monitored Anesthesia Care Complications: No immediate complications. Procedure: Pre-Anesthesia Assessment: - Rueter Protocol: - Pre-procedure Verification: Prior to theprocedure, the patient's identity was verified by full name, date of and medicalrecord number. The patient's identity was verified on all pertinent medicalrecords, including History and Physical. Also prior to the procedure, a Historyand Physical was performed, and patient medications, allergies and sensitivitieswere reviewed. The patient's tolerance of previous anesthesia was reviewed. Thepatient is competent. The risks and benefits of the procedure and the sedationoptions and risks were discussed with the patient. All questions were answered andinformed consent was obtained. - Marking: The endoscopic procedure was visuallymarked on a patient wrist band delineating the patient name, proposed procedureand endoscopist's initials. - Time-Out: Prior to the start of the procedure,the patient's identification, proposed procedure, accurate signed consent,correctly labeled images and records, and need for prophylactic antibiotics were verifiedby the physician, the nurse and the corporate real estate manager in the procedure room. - The supervising physician was present for theentire procedure from scope insertion until scope withdrawal. After obtaining informed consent, the endoscope waspassed under direct vision. All instruments were visually inspected immediatelybefore and after removal from the patient to ensure they are fully intact. Throughout the procedure, the patient's bloodpressure, pulse, and oxygen saturations were monitored continuously. The GIF [id number]) was introduced through the mouth, and advanced to the jejunum. Findings & Specimens: The examined esophagus was normal. 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 Previous suture was found inthe stomach. Localized severely friable mucosa with contact bleeding was found inthe gastric body. The examined jejunum was normal. Impression: - Normal esophagus. - Gastric-gastric fistula. - Friable gastric mucosa. - Normal examined jejunum. - No specimens collected. Recommendation: - Return patient to hospital loving for ongoingcare. - Follow GI consult team recommendations. Amado Alvarez DO 01/23/2024 2:57:37 PM This report has been signed electronically. Eve Ramos, Estimated Blood Loss: Estimated blood loss: none. Juan C Salinas DO GASTRO UPPER * (ABNORMAL) CBC (01/23/2024 11:45 AM EDT) WBC 4.07 4.00 - 10.80 K/uL 01/23/2024 12:18 PM EDT LAB[facility]ATORY [facility] RBC 2.43 3.85 - 5.15 M/uL 01/23/2024 12:18 PM EDT LABORATORY [facility] HGB 8.6(L) 12.0 - 15.3 g/dL 01/23/2024 12:18 PM EDT LABORATORY [facility] HCT 26.5(L) 36.0 - 45.2 % 01/23/2024 12:18 PM EDT LABORATORY [facility] MCV 109.1 81.5 - 97.5 fL 01/23/2024 12:18 PM EDT LABORATORY [facility] MCH 35.4 27.0 - 34.0 pg 01/23/2024 12:18 PM EDT LABORATORY [facility] MCHC 32.5 32.0 - 36.0 g/dL 01/23/2024 12:18 PM EDT LABORATORY [facility] RDW 14.2 11.5 - 15.5 % 01/23/2024 12:18 PM EDT LABORATORY [facility] PLT 190 140 - 400 K/uL 01/23/2024 12:18 PM EDT LABORATORY [facility] MPV 9.6 6.6 - 11.1 fL 01/23/2024 12:18 PM EDT LAB[facility]ATORY [facility] nRBCs 0 <=0 /100 WBCs 01/23/2024 12:18 PM EDT LAB[facility]ATORY [facility] Blood Venous blood specimen / Unknown Venipuncture / Unknown 01/23/2024 11:45 AM EDT 01/23/2024 12:07 PM EDT Vikas Royal MD LAB BLOOD ORD ERABLES LAB[facility]ATORY [facility] [address] [place] [address] * PHOSPHORUS (01/23/2024 6:08 AM EDT) Phosphorus 4.6 2.5 - 4.8 mg/dL 01/23/2024 6:52 AM EDT LABORATORY C Blood Blood sample taken from central line / Unknown Central Line / Unknown 01/23/2024 6:08 AM EDT 01/23/2024 6:25 AM EDT Callie Ngo MD LAB BLOOD ORDERABLES LAB[facility]ATORY [facility] [address] [place] [address] * MAGNESIUM (01/23/2024 6:08 AM EDT) Magnesium 2.0 1.5 - 2.6 mg/dL 01/23/2024 6:52 AM EDT LABORATORY C Blood Blood sample taken from central line / Unknown Central Line / Unknown 01/23/2024 6:08 AM EDT 01/23/2024 6:25 AM EDT Callie Ngo MD LAB BLOOD ORDERABLES [facility] [address] [place] [address] * (ABNORMAL) COMPREHENSIVE METABOLIC PANEL (01/23/2024 6:08 AM EDT) BUN 13 6 - 20 mg/dL 01/23/2024 6:52 AM EDT LAB[facility]ORY [facility] CREATININE 0.6 0.5 - 1.0 mg/dL 01/23/2024 6:52 AM EDT LAB[facility]ATORY [facility] EGFR >90 >=60 mL/min 01/23/2024 6:52 AM EDT LAB[facility]ATORY [facility] Comment:eGFR is calculated b ased on the CKD-EPI 2020 equation. SODIUM 136 135 - 146 mmol/L 01/23/2024 6:52 AM EDT LAB[facility]ORY [facility] POTASSIUM 3.9 3.5 - 5.1 mmol/L 01/23/2024 6:52 AM EDT LAB[facility]ORY [facility] CHLORIDE 107 98 - 107 mmol/L 01/23/2024 6:52 AM EDT LAB[facility]ORY [facility] CO2 20(L) 22 - 32 mmol/L 01/23/2024 6:52 AM EDT LAB[facility]ATORY [facility] ANION GAP 9 7 - 15 mmol/L 01/23/2024 6:52 AM EDT LAB[facility]ORY [facility] GLUCOSE 91 70 - 120 mg/dL 01/23/2024 6:52 AM EDT LAB[facility]ATORY [facility] Albumin 3.1(L) 3.8 - 5.0 g/dL 01/23/2024 6:52 AM EDT LAB[facility]ATORY [facility] AST 12 10 - 35 U/L 01/23/2024 6:52 AM EDT LAB[facility]ATORY [facility] Alkaline Phosphatase 140(H) 35 - 130 U/L 01/23/2024 6:52 AM EDT LAB[facility]ATORY [facility] Bilirubin, Total 0.7 <=1.2 mg/dL 01/23/2024 6:52 AM EDT LAB[facility]ATORY [facility] CALCIUM 8.4 8.4 - 10.2 mg/dL 01/23/2024 6:52 AM EDT LAB[facility]ORY [facility] Protein 4.8(L) 6.0 - 8.3 g/dL 01/23/2024 6:52 AM EDT LAB[facility]ATORY [facility] ALT 16 10 - 35 U/L 01/23/2024 6:52 AM EDT LAB[facility]ATORY [facility] Blood Blood sample taken from central line / Unknown Central Line / Unknown 01/23/2024 6:08 AM EDT 01/23/2024 6:25 AM EDT Callie Ngo MD LAB BLOOD ORDERABLES LAB[facility] [address] [place] [address] * (ABNORMAL) CBC (01/23/2024 6:08 AM EDT) WBC 4.50 4.00 - 10.80 K/uL 01/23/2024 6:33 AM EDT LAB[facility]ATORY [facility] RBC 2.35 3.85 - 5.15 M/uL 01/23/2024 6:33 AM EDT LAB[facility]ATORY [facility] HGB 8.2(L) 12.0 - 15.3 g/dL 01/23/2024 6:33 AM EDT LABORATORY [facility] HCT 25.6(L) 36.0 - 45.2 % 01/23/2024 6:33 AM EDT LAB[facility]ATORY [facility] MCV 108.9 81.5 - 97.5 fL 01/23/2024 6:33 AM EDT LABORATORY [facility] MCH 34.9 27.0 - 34.0 pg 01/23/2024 6:33 AM EDT LAB[facility]ATORY [facility] MCHC 32.0 32.0 - 36.0 g/dL 01/23/2024 6:33 AM EDT LAB[facility]ATORY [facility] RDW 14.2 11.5 - 15.5 % 01/23/2024 6:33 AM EDT LAB[facility]ATORY [facility] PLT 197 140 - 400 K/uL 01/23/2024 6:33 AM EDT LAB[facility]ORY [facility] MPV 9.6 6.6 - 11.1 fL 01/23/2024 6:33 AM EDT LABORATORY [facility] nRBCs 0 <=0 /100 WBCs 01/23/2024 6:33 AM EDT LAB[facility]ATORY [facility] Blood Blood sample taken from central line / Unknown Central Line / Unknown 01/23/2024 6:08 AM EDT 01/23/2024 6:25 AM EDT Callie Ngo MD LAB BLOOD ORDERABLES Performing Organization Address [facility] Co de Phone Number LAB[facility]ATORY [facility] [address] [place] [address] * TYPE AND SCREEN (01/23/2024 1:22 AM EDT) ABO O 01/23/2024 2:07 AM EDT LABORATORY [facility] BLOOD BANK Rh Positive 01/23/2024 2:07 AM EDT LABORATORY [facility] BLOOD BANK Red Blood Cell Antibody Screen Negative 01/23/2024 2:07 AM EDT LABORATORY [facility] [facility] Specimen Expiration Date 01/26/2024 23:59 01/23/2024 2:07 AM EDT [facility] Blood Venous blood specimen / Unknown Venipuncture / Unknown 01/23/2024 1:22 AM EDT 01/23/2024 1:28 AM EDT Mare MOELLER [facility] FREDY T ORDERABLES Performing Organization Address [facility] Co de Phone Number [facility] [address] [place] [address] * (ABNORMAL) HEMOGLOBIN AND HEMATOCRIT PANEL (01/23/2024 1:22 AM EDT) HGB 8.7(L) 12.0 - 15.3 g/dL 01/23/2024 1:37 AM EDT [facility] HCT 26.9(L) 36.0 - 45.2 % 01/23/2024 1:37 AM EDT [facility] Blood Venous blood specimen / Unknown Venipuncture / Unknown 01/23/2024 1:22 AM EDT 01/23/2024 1:28 AM EDT Callie Ngo MD LAB BLOOD ORDERABLES [facility] [address] [place] [address] documented in this encounter Visit Diagnoses Diagnosis Gastrointestinal hemorrhage with melena- Primary Chest pain Chest pain, unspecified GI bleed Hemorrhage of gastrointestinal tract, unspecified Gastrojejunal anastomotic stricture Other gastrostomy complication Gastrointestinal hemorrhage with melena Upper GI bleed Hemorrhage of gastrointestinal tract, unspecified Fistula of stomach and duodenum (CODE) [K31.6] Disease of stomach and duodenum, unspecified [K31.9] Hematemesis with nausea Hematemesis Upper GI bleed Hemorrhage of gastrointestinal tract, unspecified AUDELIA (generalized anxiety disorder) Generalized anxiety disorder 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 Albuterol Sulfate (Proventil) (2.5 MG/3ML) 0.083% inhalation solution 2.5 mg 2.5 mg, Nebulizer, Q4H PRN Dyspnea, Starting on Sat01/22/24 at 2328, Until Sat01/24/24 at 2001 check patch placement order QSHIFT, First dose on Sat01/23/24 at 1600, Until Discontinued, Routine, Scopolamine (TRANSDERM SCOP) patch placement check, Pre-Op chlorhexidine gluconate cloth 2 % pad External, [id number], First dose on Sat01/23/24 at 1000, Until Discontinued, Applied to appropriate patients per wafer polishing lead worker's recommendations FOLLOWING daily care. Patient/Caregiver Administered 01/24/2024 11:09 AM EDT 1 Pad Given 01/23/2024 11:52 AM EDT 1 Pad Famotidine (Pepcid) inj 20 mg 20 mg, IV Push, Q12H, First dose on Sat01/23/24 at 0900, Until Discontinued, Give IV push over 2 minutes. Given 01/24/2024 8:41 AM EDT 20 mg Given 01/23/2024 9:25 PM EDT 20 mg Given 01/23/2024 11:24 AM EDT 20 mg guaiFENesin (Robitussin) oral liquid 200 mg 200 mg, Oral, Q4H PRN Cough, Starting on Sat01/22/24 at 2257, Until Sat01/24/24 at 2001 melatonin tab 3 mg 3 mg, Oral, HS PRN Insomnia, Starting on Sat01/22/24 at 2257, Until Sat01/24/24 at 2001 morphine sulfate inj 1 mg 1 mg, IV Push, Q6H PRN Pain, Severe, Starting on Sat01/22/24 at 2331, Until Sat01/24/24 at 2001 NSS infusion Intravenous, at 75 mL/hr, CONTINUOUS, Starting on Maria Elena 01/23/24 at 0015, Until Maria Elena 01/23/24 at 1609 New Bag 01/23/2024 11:21 AM EDT 75 mL/hr Rate Verify 01/23/2024 6:15 AM EDT 75 mL/hr Restarted 01/23/2024 6:10 AM EDT 75 mL/hr ondansetron (Zofran) inj 4 mg 4 mg, IV Push, Q6H PRN Nausea, Starting on Sat01/22/24 at 2256, Until Sat01/24/24 at 2001 Oral Hygiene: Mouth Swab with dentifrice Oral, PCHS, First dose on Sat01/22/24 at 2330, Until Discontinued, To be used with 1.5% hydrogen peroxide solution or 0.05% cetylpyridium chloride oral rinse Patient/Caregiver Administered 01/24/2024 2:45 PM EDT 1 Kit Patient/Caregiver Administered 01/24/2024 11:09 AM EDT 1 K it Given 01/23/2024 10:00 PM EDT oxygen GAS Inhalation, OXYGEN, First dose on Maria Elena 01/23/24 at 1600, Until Discontinued, Device/Managed by: Low Flow Device, Goal SPO2 (%): 91-95, Starting Device: Nasal Cannula, Initial Flow Rate (LPM): 2, Lowest Support: Nasal Cannula: Flow 0-6 LPM. Titrate up/down by 1 LPM., Higher Support: Non-Rebreather (NRB) Mask: Minimum of 10 LPM. Titrate to maintain bag inflation., Titration Interval: Q2 minutes and as needed., Notify Provider: For sudden DECREASE in resting SPO2 to less than 85% and when escalating delivery device., Wean patient off Oxygen when the oxygen saturation is greater than or equal to 93% Pantoprazole (Protonix) 80 mg in NSS 100 mL ivpb 80 mg, IV Piggyback, ONCE, 1 dose, On Maria Elena 01/23/24 at 0000, Administer over 15 Minutes New Bag 01/23/2024 12:33 AM EDT 80 mg 420 mL/hr Pantoprazole (Protonix) 80 mg in NSS 500 mL INFUSION Intravenous, at 50 mL/hr, CONTINUOUS, Starting on Maria Elena 01/23/24 at 0015, Until Maria Elena 01/23/24 at 1609 New Bag 01/23/2024 1:01 PM EDT 8 mg/hr 50 mL/hr Rate Verify 01/23/2024 7:04 AM EDT 8 mg/hr 50 mL/hr Rate Verify 01/23/2024 6:15 AM EDT 8 mg/hr 50 mL/hr Pantoprazole (Protonix) inj 40 mg 40 mg, IV Push, Q12H, First dose on Maria Elena 01/23/24 at 2100, Until Discontinued, IV push instructions: Flush I.V. Line before and after administration. In-line filter not required. 2-minute infusion: The volume of reconstituted solution (4mg/ml) to be injected may be administered intravenously over at least 2 minutes. ( Dilute each vial with 10 ml of 0.9% saline PF) Given 01/24/2024 8:41 AM EDT 40 mg Given 01/23/2024 9:25 PM EDT 40 mg Scopolamine (Transderm Scop) patch 1 mg 1 mg (1 Patch), Transdermal, ONCE, On Maria Elena 01/23/24 at 1430, For 1 dose, Do NOT cut the patch. All Scopolamine patches deliver 1 mg over 72 hours. Remove any Scopolamine patches the patient may currently be wearing prior to applying the new patch., Pre-Op Patch Applied 01/23/2024 1:52 PM EDT 1 mg Other-Specify sertraline (Zoloft) tab 100 mg 100 mg, Oral, Daily(AM), First dose on Maria Elena 01/23/24 at 0900, Until Discontinued Given 01/24/2024 8:41 AM EDT 100 mg Given 01/23/2024 11:23 AM EDT 100 mg sodium chloride 0.9 % flush central line 10 mL 10 mL, IV Push, Q8H, First dose on Sat01/22/24 at 2330, Until Discontinued, TO UNUSED PORTS Do not flush if lock, PICC, or central line not in place; IV infusing or unable to flush. Given 01/24/2024 2:4 6 PM EDT 10 mL Given 01/24/2024 6:00 AM EDT 10 mL Given 01/23/2024 10:00 PM EDT 10 mL sodium chloride 0.9 % flush/inj 3 mL 3 mL, IV Push, PRN Other, Line Patency, Starting on Sat01/22/24 at 2256, Until Sat01/24/24 at 2002, Do not flush if lock, PICC, or central line not in place, IV infusing or unable to flush topiramate (topAMAX) tab 50 mg 50 mg, Oral, BID (.AM/PM), First dose on Sat01/23/24 at 0900, Until Discontinued Given 01/24/2024 8:41 AM EDT 50 mg Given 01/23/2024 9:25 PM EDT 50 mg Given 01/23/2024 11:23 AM EDT 50 mg venlafaxine (Effexor) tab 50 mg 50 mg, Oral, Daily(AM), First dose on Sat01/23/24 at 0900, Until Discontinued Given 01/24/2024 8:41 AM EDT 50 mg Given 01/23/2024 11:23 AM EDT 50 mg documented in this encounter Active and Recently Administered Medications Times are shown in EDT. Scheduled Medication Order 01/22/2024 01/23/2024 01/24/2024 check patch placement order QSHIFT, First dose on Sat01/23/24 at 1600, Until Discontinued, Routine, Scopolamine (TRANSDERM SCOP) patch placement check, Pre-Op 1600 (Patch Placement Verified - Provider: Baldo Buckley RN) 0000 (Patch Placement Verified - Provider: Ana Greene RN)0800 (Patch Placement Verified - Provider: Baldo Buckley RN)1600 (Due) chlorhexidine gluconate cloth 2 % pad External, [id number], First dose on Sat01/23/24 at 1000, Until Discontinued, Applied to appropriate patients per wafer polishing lead worker's recommendations FOLLOWING daily care. 1152 (Given - Provider: Baldo Buckley RN) 1109 (Patient/Caregiver Administered - Provider: Baldo Buckley RN) Famotidine (Pepcid) inj 20 mg 20 mg, IV Push, Q12H, First dose on Sat01/23/24 at 0900, Until Discontinued, Give IV push over 2 minutes. 1124 (Given - Provider: Baldo Buckley RN)2125 (Given - Provider: Ana Greene RN) 0841 (Given - Provider: Baldo Buckley RN) Oral Hygiene: Mouth Swab with dentifrice Oral, PCHS, First dose on Sat01/22/24 at 2330, Until Discontinued, To be used with 1.5% hydrogen peroxide solution or 0.05% cetylpyridium chloride oral rinse 2330 (Given - Provider: Ana Greene RN) 1152 (Given - Provider: Baldo Buckley RN)1300 (OR/Procedure - Provider: Baldo Buckley RN)1846 (Patient/Caregiver Administered - Provider: Baldo Buckley RN)2200 (Given - Provider: Ana Greene RN) 1109 (Patient/Caregiver Administered - Provider: Baldo Buckley RN)1445 (Patient/Caregiver Administered - Provider: Baldo Buckley RN) oxygen GAS Inhalation, OXYGEN, First dose on Sat01/23/24 at 1600, Until Discontinued, Device/Managed by: Low Flow Device, Goal SPO2 (%): 91-95, Starting Device: Nasal Cannula, Initial Flow Rate (LPM): 2, Lowest Support: Nasal Cannula: Flow 0-6 LPM. Titrate up/down by 1 LPM., Higher Support: Non-Rebreather (NRB) Mask: Minimum of 10 LPM. Titrate to maintain bag inflation., Titration Interval: Q2 minutes and as needed., Notify Provider: For sudden DECREASE in resting SPO2 to less than 85% and when escalating delivery device., Wean patient off Oxygen when the oxygen saturation is greater than or equal to 93% 1600 (Oxygen Off - Provider: Baldo Buckley RN) 0000 (Oxygen Off - Provider: Ana Greene RN)0800 (Oxygen Off - Provider: Baldo Buckley RN)1600 (Due) Pantoprazole (Protonix) 80 mg in NSS 100 mL ivpb (COMPLETED)(Linked Group 1) 80 mg, IV Piggyback, ONCE, 1 dose, On Sat01/23/24 at 0000, Administer over 15 Minutes 0033 (New Bag - Provider: Ana Greene RN) Pantoprazole (Protonix) inj 40 mg 40 mg, IV Push, Q12H, First dose on Sat01/23/24 at 2100, Until Discontinued, IV push instructions: Flush I.V. Line before and after administration. In-line filter not required. 2-minute infusion: The volume of reconstituted solution (4mg/ml) to be injected may be administered intravenously over at least 2 minutes. ( Dilute each vial with 10 ml of 0.9% saline PF) 2125 (Given - Provider: Ana Greene RN) 0841 (Given - Provider: Baldo Buckley RN) Scopolamine (Transderm Scop) patch 1 mg 1 mg (1 Patch), Transdermal, ONCE, On Sat01/23/24 at 1430, For 1 dose, Do NOT cut the patch. All Scopolamine patches deliver 1 mg over 72 hours. Remove any Scopolamine patches the patient may currently be wearing prior to applying the new patch., Pre-Op 1352 (Patch Applied - Provider: Carola Castro RN - Comment: right ear) 1602 (Due: Patch Removed - Provider: Discharge, Physician - Comment: Time automatically adjusted from order being discontinued) sertraline (Zoloft) tab 100 mg 100 mg, Oral, Daily(AM), First dose on Sat01/23/24 at 0900, Until Discontinued 1123 (Given - Provider: Baldo Buckley RN) 0841 (Given - Provider: Baldo Buckley RN) sodium chloride 0.9 % flush central line 10 mL 10 mL, IV Push, Q8H, First dose on Sat01/22/24 at 2330, Until Discontinued, TO UNUSED PORTS Do not flush if lock, PICC, or central line not in place; IV infusing or unable to flush. 2330 (Given - Provider: Ana Greene RN) 0600 (Not Given - Provider: Ana Greene RN - Reason: Parameter(s) Not Met)1400 (OR/Procedure - Provider: Baldo Buckley RN)2200 (Given - Provider: Ana Greene RN) 0600 (Given - Provider: Ana Greene RN)1446 (Given - Provider: Baldo Buckley RN) topiramate (topAMAX) tab 50 mg 50 mg, Oral, BID (.AM/PM), First dose on Maria Elena 01/23/24 at 0900, Until Discontinued 1123 (Given - Provider: Baldo Buckley RN)2125 (Given - Provider: Ana Greene RN) 0841 (Given - Provider: Baldo Buckley RN) venlafaxine (Effexor) tab 50 mg 50 mg, Oral, Daily(AM), First dose on Maria Elena 01/23/24 at 0900, Until Discontinued 1123 (Given - Provider: Baldo Buckley RN) 0841 (Given - Provider: Baldo Buckley RN) Continuous Medication Order 01/22/2024 01/23/2024 01/24/2024 isolyte-S pH 7.4 infusion (CANCELED) Intravenous, at 25 mL/hr, for Inpatient patient Plasma-LYTE 148, isolyte-S, and isolyte-S pH 7.4 are considered equivalent - including for MAR barcode scanning., CONTINUOUS, Starting on Maria Elena 01/23/24 at 1430, Until Maria Elena 01/23/24 at 1606, Pre-Op 1400 (New Bag - Provider: Candy Chatterjee CRNA)1427 (Anes Intra-Op Fluid - Provider: Bette Chatterjee CRNA)1606 (Stopped - Provider: Baldo Buckley RN) NSS infusion (CANCELED) Intravenous, at 75 mL/hr, CONTINUOUS, Starting on Maria Elena 01/23/24 at 0015, Until Maria Elena 01/23/24 at 1609 0032 (New Bag - Provider: Ana Greene RN)0603 (Paused - Provider: Ana Greene RN)0610 (Restarted - Provider: Ana Greene RN)0615 (Rate Verify - Provider: Ana Greene RN)1055 (Stopped - Provider: Baldo Buckley RN)1121 (New Bag - Provider: Baldo Buckley RN)1344 (Stopped - Provider: Baldo Buckley RN) Pantoprazole (Protonix) 80 mg in NSS 500 mL INFUSION (CANCELED)(Linked Group 1) Intravenous, at 50 mL/hr, CONTINUOUS, Starting on Sat01/23/24 at 0015, Until Sat01/23/24 at 1609 0049 (New Bag - Provider: Ana Greene RN)0603 (Paused - Provider: Ana Greene RN)0610 (Restarted - Provider: Ana Greene RN)0615 (Rate Verify - Provider: Ana Greene RN)0704 (Rate Verify - Provider: Baldo Buckley RN)1301 (New Bag - Provider: Baldo Buckley RN)1345 (Stopped - Provider: Baldo Buckley RN)1633 (Stopped - Provider: Baldo Buckley RN) PRN Medication Order 01/22/2024 01/23/2024 01/24/2024 Acetaminophen (Tylenol) tab 650 mg 650 mg, Oral, Q6H PRN Pain, Mild, Fever >38C(100.5F), Starting on Sat01/22/24 at 2257, Until Sat01/24/24 at 2001, Maximum of 4 grams (4000 mg) per day. Albuterol Sulfate (Proventil) (2.5 MG/3ML) 0.083% inhalation solution 2.5 mg 2.5 mg, Nebulizer, Q4H PRN Dyspnea, Starting on Sat01/22/24 at 2328, Until Sat01/24/24 at 2001 guaiFENesin (Robitussin) oral liquid 200 mg 200 mg, Oral, Q4H PRN Cough, Starting on Sat01/22/24 at 2257, Until Sat01/24/24 at 2001 hydrOXYzine HCl tab 25 mg 25 mg, Oral, TID PRN Anxiety, Starting on Sat01/22/24 at 2319, Until Sat01/24/24 at 2001 melatonin tab 3 mg 3 mg, Oral, HS PRN Insomnia, Starting on Sat01/22/24 at 2257, Until Sat01/24/24 at 2001 morphine sulfate inj 1 mg 1 mg, IV Push, Q6H PRN Pain, Severe, Starting on Sat01/22/24 at 2331, Until Sat01/24/24 at 2001 ondansetron (Zofran) inj 4 mg 4 mg, IV Push, Q6H PRN Nausea, Starting on Sat01/22/24 at 2256, Until Sat01/24/24 at 2001 sodium chloride 0.9 % flush/inj 3 mL 3 mL, IV Push, PRN Other, Line Patency, Starting on Sat01/22/24 at 2256, Until Sat01/24/24 at 2001, Do not flush if lock, PICC, or central line not in place, IV infusing or unable to flush Linked Groups Order Group 1: Pantoprazole (Protonix) 80 mg in NSS 100 mL ivpb (COMPLETED)Jump to med 80 mg, IV Piggyback, ONCE, 1 dose, On Maria Elena 01/23/24 at 0000, Administer over 15 Minutes Followed by Pantoprazole (Protonix) 80 mg in NSS 500 mL INFUSION (CANCELED)Jump to med Intravenous, at 50 mL/hr, CONTINUOUS, Starting on Maria Elena 01/23/24 at 0015, Until Maria Elena 01/23/24 at 1609 documented in this encounter Advance Directives * [...] Agents on File Name [facility] Lashanda Justus Mother First Alternate Health Care Agent (per Health Care Power of Medical Territory Manager document) Care Teams School Manager Relationship Specialty Start Date End Date Kimberly Figueroa MD [address] [place] [address] PCP - General Internal Medicine 02/21/21 documented as of this encounter
--- OUTSIDE RECORDS SUMMARY | 2024-04-13 04:59 | External Medical Summary | Summary of Care ---
Author Name Unknown Organization [facility] Address [address] [facility] [place] [place] [address] Phone [phone] Care Team Providers Care Plate Cutter Name Role Phone Kimberly Figueroa MD Primary Care Provider + Encounter Details Date Type Department Care Team (Latest Contact Info) Description 01/22/2024 3:20 PM EDT - 01/22/2024 3:59 PM EDT Hospital Encounter Radiology Film File [address] [place] [address] Arrived Discharge Disposition: Home - Self Care Allergies Active Allergy Reactions Criticality Noted Date Comments Cephalexin Hives 01/24/2010 As a small child Clindamycin Hives 12/30/2014 " And bad heartburn" As an adult about age 24 Hydrocodone Medium 12/26/2018 Other reaction(s): Itching Methocarbamol Rash High 06/17/2016 Sulfa Antibiotics Hives 08/05/2006 As a small child Hydrocodone-Acetaminophen Itching 01/01/2014 documented as of this encounter (statuses as of 01/24/2024) Medications Medication Sig Dispensed Refills Start Date End Date Status FLINTSTONES COMPLETE PO CHEW daily Suspende d Cholecalciferol (VITAMIN D3) 5000 UNITS Tablet Take 1 Cap by mouth daily. Take with additonal 1000 units for total of 6000 units daily 30 Cap 11 6 Suspended Additional Information Patient taking differently:5,000 Units Oral Daily(AM),Take with additional 1000 units for total of 6000 units daily., Informant: Patient, Reported on 06/21/2022 Cranberry 500 MG Capsule Take 1 Capsule by mouth in the morning. 8 Suspended vitamin b-12 (CYANOCOBALAMIN) 1000 MCG/ML injection Inject 1,000 mcg into a large muscle every 30 days. 8 Suspended Ocrelizumab 300 MG/10ML Intravenous Solution Administer intravenously. Every 6 months 9 Suspended Glucose Blood (ONETOUCH VERIO) STRPIndications:Hy poglycemia Test blood sugar once daily as directed. Dx: E16.2 100 Strip 11 9 Suspended Additional Information ONETOUCH DELICA LANCETS 33G MISCIndications:Hy poglycemia Test blood sugar once daily as directed. Dx: E16.2 90 Each 3 9 Suspended Additional Information Topiramate 50 MG Oral Tablet (topAMAX)Indicatio ns:ICE CREAM CHEF demyelination (HCC) TAKE 1 TABLET BY MOUTH TWICE A DAY 180 Tab 1 1 Suspended Additional Information medroxyPROGESTERon e Acetate 150 MG/ML Intramuscular Suspension (Depo-Provera) INJECT 150 MG INTO A LARGE MUSCLE EVERY 3 MONTHS. 1 mL 4 2 Suspended Additional Information Albuterol Sulfate (2.5 MG/3ML) 0.083% Inhalation Nebulization Solution (Proventil)Indicat ions:Moderate persistent asthma with acute exacerbation USE ONE VIAL IN NEBULIZER EVERY 4 HOURS NEEDED FOR WHEEZING DX: J45.30 60 mL 2 2 Suspended Additional Information Omeprazole 40 MG Oral Capsule Delayed Release (PriLOSEC)Indicati ons:Gastrojejunal anastomotic stricture Take 1 Capsule (40 mg) by mouth in the morning and 1 Capsule (40 mg) before bedtime. 180 Capsule 3 2 01/24/20 24 Discontinued Venlafaxine HCl 50 MG Oral Tablet (Effexor)Indicatio ns:AUDELIA (generalized anxiety disorder),Current moderate episode of major depressive disorder without prior episode (HCC) Take 1 Tablet by mouth in the morning and 1 Tablet before bedtime. With food.. 90 Tablet 5 3 Suspended Promethazine HCl 25 MG Oral Tablet (Phenergan)Indicat ions:Nausea Take 1 Tablet by mouth every 6 hours as needed for Nausea. or vomiting 20 Tablet 1 10/17/202 3 Suspended Additional Information Rizatriptan Benzoate 10 MG Oral Tablet (Maxalt)Indication s:ICE CREAM CHEF demyelination (HCC) one at onset. May repeat two hour if neeed 9 Tablet 5 3 Suspended Additional Information Triamcinolone Acetonide 0.1 % External Cream (Aristocort) Apply topically to affected area 2 times a day. Apply to rash areas. 30 g 4 Suspended Additional Information Clobetasol Propionate 0.05 % External Cream (Temovate)Indicati ons:Rash and nonspecific skin eruption Apply topically to affected area 2 times a day. To affected area for up to two weeks. 30 g 3 4 01/24/20 24 Discontinued Fluocinonide 0.05 % External OintmentIndication s:Rash and nonspecific skin eruption Apply to rash behind knees, elbows, trunk twice a day for 2 weeks 60 g 1 4 Suspended Additional Information Albuterol Sulfate HFA 108 (90 Base) MCG/ACT Inhalation Aerosol Solution INHALE 2 PUFFS BY MOUTH EVERY FOUR HOURS NEEDED FOR WHEEZING 18 g 2 4 Suspended Additional Information EPINEPHrine 0.3 MG/0.3ML Injection Solution Auto-injector (Autoinjector) For a severe reaction: Inject in outer thigh following instructions on package and go to the Emergency room. 2 Each 3 4 Suspended Additional Information Patient not taking.Reported on 01/17/2024 Fexofenadine-Pseud oephed ER 180-240 MG Tablet Extended Release 24 Hour (Gemma-D Allergy & Congestion) Take 1 Tablet by mouth in the morning. Suspended Folic Acid 1 MG Oral TabletIndications: H/O gastric bypass,Folic acid deficiency Take 2 Tablets by mouth in the morning. 180 Tablet 1 4 Suspended Additional Information Diclofenac Sodium 1 % External Gel (Voltaren)Indicati ons:Acute pain of left knee Apply 4 g topically to affected area in the morning and 4 g at noon and 4 g in the evening and 4 g before bedtime. Apply to left knee. 150 g 3 4 Suspended Additional Information Patient not taking.Reported on 01/17/2024 Sertraline HCl 100 MG Oral Tablet (Zoloft)Indication s:Recurrent major depressive disorder, in partial remission (HCC) Take 1 Tablet by mouth in the morning. 30 Tablet 5 4 Suspended Additional Information hydrOXYzine Pamoate 25 MG Oral Capsule (Vistaril)Indicati ons:AUDELIA (generalized anxiety disorder) Take 1 Capsule by mouth 3 times a day as needed for Anxiety (Sleep). 30 Capsule 5 4 Suspended Additional Information Dupixent 300 MG/2ML Subcutaneous Solution Pen-injector (Dupilumab)Indicat ions:Rash and nonspecific skin eruption Maintenance Dose: Inject 300mg (1 pen) under the skin every two weeks. 4 mL 2 4 Suspended Additional Information documented as of this encounter (statuses as of 01/24/2024) Active Problems Problem Noted Date Diagnosed Date Other atopic dermatitis 10/17/2023 Chronic embolism and [...] ICD-10 update of inactive term ROCK RESEARCH OTHER*[id number] 11/17/2007 documented as of this encounter (statuses as of 01/24/2024) Resolved Problems Problem Noted Date Diagnosed Date Resolved Date Hematemesis 01/22/2024 01/24/2024 Upper GI bleed 01/22/2024 01/24/2024 Gastrointestinal hemorrhage [...] BMI) 08/01/2009 01/01/2014 Overview: Per Obesity Taxonomy ICE CREAM CHEF demyelination 07/11/2009 09/17/2018 ADVANCE DIRECTIVE INFORMATION 07/03/2009 [...] as of this encounter (statuses as of 01/24/2024) Immunizations Name Administration Dates Next Due COVID-19 [...] No 04/18/2015 documented as of this encounter Plan of Treatment Upcoming Encounters Date Type Department Care Team (Latest Contact Info) Description 4 10:30 AM EDT Office Visit Allergy/Immuno logy State Michelle Gill [address] [place] [address] Krystal Thomas PA-C [address] [place] [place] [address] 4 8:41 AM EDT Hospital Encounter OR [facility], Operating Room, [facility] - 4th Floor [address] [facility] [place] [address] Anita Ha MD [address] [place] [address] 4 8:41 AM EDT - 4 9:52 AM EDT Surgery OR [facility], Operating Room, [facility] - 4th Floor [address] [place] [address] Anita Ha MD [address] [place] [address] ESOPHAGOGASTRODUODENOSCOPY (EGD), FLEXIBLE, TRANSORAL, DIAGNOSTIC 4 11:30 AM EDT Nurse Only Ancillary State Michelle Gill [address] [place] [address] Nurse, Int Med [address] [place] [address] 4 3:20 PM EST Office Visit General Internal Medicine State Michelle Gill [address] [place] [address] Kimberly Figueroa MD [address] [place] [address] 4 10:00 AM EST Telemedicine Dermatology, Katarina Santos [address] [facility] [place] [address] Wb, Pharmacist Dermatology [address] [facility] [address] [facility] [place] [address] 4 10:00 AM EST Hem/Onc Treatment Hematology/Onc ology Treatment, [place] [address] [place] [address] Catina, Chair 3 Hem Onc Scenery [address] [place] [address] 5 2:30 PM EST Office Visit [facility]ol[facility] [place] [address] Anna Ferro MD [address] [place] [address] 5 7:00 AM EDT Pharmacy Neurology [address] [place], [place] [address] Lore, Pharmacist Neurology [address] [facility] [place] [address] Scheduled Procedures [...] this encounter Medical Devices Implanted Type Area Emergency Medical Service Manager Device Identifier Shelf Expiration Date Model / Serial / Lot Port Pwr Mri Isp Profile - [id number] Implanted:Qty: 1 on 08/09/2015 by Terrance Curry MD at [facility] Left: Chest CR BARD : PERIPHERAL VASCULAR 05/02/2017 [id number] / / [id number] Description:27 length of cat heter documented as of this encounter Procedures Procedure Name Priority Date/Time Associated Diagnosis Comments RADIOLOGY EXAM - GENERAL RAD (IMAGES ONLY,NO REPORT) Routine 01/22/2024 3:20 PM EDT documented in this encounter Results * RADIOLOGY EXAM - GENERAL RAD (IMAGES ONLY,NO REPORT) (01/22/2024 3:20 PM EDT) 01/22/2024 3:20 PM EDT Narrative Scheduling, Silent - 01/23/2024 6:52 PM EDT This is an imaging study not interpreted or resulted by a [facility] or [facility] contracted radiologist. Laurence Olivarez DO RADIOLOGY (RAD GENER AL) documented in this encounter Advance Directives * Full Code (Latest Code Status on File) Date Activated Date Inactivated Comments 01/22/2024 11:22 PM This order re flects the patients wishes and were consensually agreed [...] Care Agent (per Health Care Power of Seamless Tube Mill Operator document) Care Teams Plate Cutter Relationship Specialty Start Date End Date Kimberly Figueroa MD 200 [facility] [place] [address] PCP - General Internal Medicine 02/21/21 documented as of this encounter
--- OUTSIDE RECORDS SUMMARY | 2024-04-13 04:59 | External Medical Summary | Summary of Care ---
Author Name Unknown Organization [facility] Address [address] [place] [address] Phone [phone] Care Team Providers Care Donation Specialist Name Role Phone Kimberly Figueroa MD Primary Care Provider + Reason for Visit * Reason Onset Date Comments Mycode Lab Reorder 01/24/2024 Encounter Details Date Type Department Care Team (Late st Contact Info) Description 01/24/2024 Orders Only Outcomes Research Department [address] [place] [address] Ita Owens CHRA MyCode Research Other*[id number]* Allergies Active Allergy Reactions Criticality Noted Date [...] Dispensed Refills Start Date End Date Status Omeprazole 40 MG Oral Capsule Delayed Release (PriLOSEC)Indicati ons:Gastrojejunal anastomotic stricture Take 1 Capsule by mouth in the morning and 1 Capsule before bedtime. 60 Capsule 3 01/24/2024 Active FLINTSTONES COMPLETE PO CHEW daily Suspende d [...] Information Topiramate 50 MG Oral Tablet (topAMAX)Indicatio ns:ROAD CONSULTANT demyelination (HCC) TAKE 1 TABLET BY [...] Rizatriptan Benzoate 10 MG Oral Tablet (Maxalt)Indication s:ROAD CONSULTANT demyelination (HCC) one at onset. May repeat two hour if neeed 9 Tablet 5 02/19/2023 Suspended Additional Information Triamcinolone Acetonide 0.1 % External Cream (Aristocort) Apply topically to affected area 2 times a day. Apply to rash areas. 30 g 07/23/2023 Suspended Additional Information Fluocinonide 0.05 % External OintmentIndication s:Rash and nonspecific skin eruption Apply to rash behind knees, elbows, trunk twice a day for 2 weeks 60 g 1 08/26/2023 Suspended Additional Information Albuterol Sulfate HFA 108 [...] 150 g 3 01/14/2024 Suspended Additional Information Sertraline HCl 100 MG Oral Tablet (Zoloft)Indication s:Recurrent major depressive disorder, in partial remission (HCC) Take 1 Tablet by mouth in the morning. 30 Tablet 5 01/14/2024 Suspended Additional Information hydrOXYzine Pamoate 25 [...] 4 mL 2 01/21/2024 Suspended Additional Information documented as of this [...] ICD-10 update of inactive term ROCK RESEARCH OTHER*[id number] 11/17/2007 documented as of this encounter (statuses [...] BMI) 08/01/2009 01/01/2014 Overview: Per Obesity Taxonomy ROAD CONSULTANT demyelination 07/11/2009 09/17/2018 ADVANCE DIRECTIVE INFORMATION [...] as of this encounter Progress Notes * Ita Owens CHRA - 01/24/2024 11:44 AM EDT MyCode lab reordered. documented in this encounter Plan of Treatment Upcoming Encounters Date Type Department Care Team (Latest Contact Info) Description 4 10:30 AM EDT Office Visit Allergy/Immuno logy State Michelle Gill [address] [place] [address] Krystal Thomas PA-C [address] [place] [address] 4 8:41 AM EDT Hospital Encounter OR [facility], Operating Room, [facility] - 4th Floor [address] [place] [address] Anita Ha MD [address] [place] [address] 4 8:41 AM EDT - 4 9:52 AM EDT Surgery OR [facility], Operating Room, [facility] - 4th Floor [address] [place] [address] Anita Ha MD [address] [place] [address] ESOPHAGOGASTRODUODENOSCOPY (EGD), FLEXIBLE, TRANSORAL, DIAGNOSTIC 4 11:30 AM EDT Nurse Only Ancillary State Michelle Gill [address] [place] [address] Nurse, Int Med [address] [place] [address] 4 3:20 PM EST Office Visit General Internal Medicine State Michelle Gill [address] [place] [address] Kimberly Figueroa MD [address] [place] [address] 4 10:00 AM EST Telemedicine Dermatology, Katarina Santos [address] [facility] [place] [address] Wb, Pharmacist Dermatology [address] [facility] [address] [facility] [place] [address] 4 10:00 AM EST Hem/Onc Treatment Hematology/Onc ology Treatment, [place] [address] [place] [address] Catina, Chair 3 Hem Onc Scenery [address] [place] [address] 5 2:30 PM EST Office Visit [facility] [place] [address] Anna Ferro MD 132 [facility] [place] [address] 5 7:00 AM EDT Pharmacy Neurology [address] [place] [address] Lore, Pharmacist Neurology [address] [facility] [place] [address] Scheduled Orders Name Type Priority Associated Diagnoses Orde r Schedule MYCODE SUBSEQUENT ADULT Lab Routine MyCode Research Other*[id number] Every 6 Months for 2 Occurrences starting 01/24/2024 until 02/12/2025 Scheduled Procedures Name Priority Associated Diagnoses Date/Ti [...] this encounter Medical Devices Implanted Type Area Bilingual Speech Language Pathologist Device Identifier Shelf Expiration Date Model / Serial / Lot Port Pwr Mri Isp Profile - [id number] Implanted:Qty: 1 on 08/09/2015 by Terrance Curry MD at [facility] Left: Chest CR BARD : PERIPHERAL VASCULAR 05/02/2017 [id number] / / [id number] Description:27 length of cat heter documented as of this encounter Visit Diagnoses Diagnosis 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
--- OUTSIDE RECORDS SUMMARY | 2024-04-13 04:59 | External Medical Summary | Summary of Care ---
Author Name Unknown Organization [facility] Address [address] [facility] [address] Phone [phone] Care Team Providers Care Production Technologist Name Role Phone Kimberly Figueroa MD Primary Care Provider + Reason for Visit * Reason Onset Date Comments Hospital Follow-Up 01/24/2024 [facility] 3 day pcp f/u needed. No appt avail. Please assist with patient scheduling. Thank you. Encounter Details Date Type Department Care Team (Late st Contact Info) Description 01/24/2024 Telephone General Internal Medicine Alex[place] Dominique [place] 200 [facility] [place] [address] Kimberly [facility]ueroa MD [facility] [address] [facility] 01/24/24 3 day ... Allergies Active Allergy [...] 100 Strip 11 02/03/2019 Suspended Additional Information DOMINGA BARRIOS LANCETS 33G MISCIndications:Hy poglycemia Test blood sugar once daily as directed. Dx: E16.2 90 Each 3 02/03/2019 Suspended Additional Information Topiramate 50 MG Oral Tablet (topAMAX)Indicatio ns:DIRECTOR OF RESIDENTIAL SERVICES demyelination (HCC) TAKE 1 TABLET BY MOUTH [...] Rizatriptan Benzoate 10 MG Oral Tablet (Maxalt)Indication s:DIRECTOR OF RESIDENTIAL SERVICES demyelination (HCC) one at onset. May repeat [...] ICD-10 update of inactive term ROCK RESEARCH OTHER*[id number] 11/17/2007 documented as of this encounter (statuses [...] BMI) 08/01/2009 01/01/2014 Overview: Per Obesity Taxonomy DIRECTOR OF RESIDENTIAL SERVICES demyelination 07/11/2009 09/17/2018 ADVANCE DIRECTIVE INFORMATION 07/03/2009 [...] encounter Miscellaneous Notes * Telephone Encounter - Ada Lam OSA - 01/24/2024 9:53 AM EDT [facility] 01/24/24 3 day pcp f/u needed. No appt avail. Please assist with patient scheduling. Thank you. Robb Jerome 01/22/2024 10:03 PM Admission Description: 33 year old female Department: BP[facility] IP [facility] Message Patient Name: ROBB JEROME([id number]) Sex: Female : 1990 PCP: KIMBERLY FIGUEROA Center: [facility] Types of orders made on 01/24/2024: IP Post Discharge , Lab, Medications Order Date:01/24/2024 Ordering User:VIKAS ANDREWS [[id number]] Attending Provider :Laurence Olivarez DO [[id number]] Authorizing Provider: Vikas Andrews MD [[id number]] Department:BP[facility] IP [facility][[id number]] Order Specific Information Order: RETURN APPT [CUSTOM: [id number]] Order #: [id number] Priority: Routine Class: Nursing Unit Department [...] EDT Office Visit Allergy/Immuno logy [place] Dominique [place] [address] [place] [address] Krystal Thomas PA-C [address] [place] [address] 4 8:41 AM EDT Hospital Encounter OR [facility], Operating Room, [facility] - 4th Floor [address] [facility] [phone] Anita Ha MD [address] [place] [address] 4 8:41 AM EDT - 4 9:52 AM EDT Surgery OR [facility], Operating Room, [facility] - 4th Floor [address] [facility] [place] [phone] Anita aH MD [address] [place] [address] ESOPHAGOGASTRODUODENOSCOPY (EGD), FLEXIBLE, TRANSORAL, DIAGNOSTIC 4 11:30 AM EDT Nurse Only Ancillary State Michelle Gill [address] [place] [address] Nurse, Int Med [address] [facility] [place] [address] 4 3:20 PM EST Office Visit [facility] [place] [address] [place] [address] Kimberly Figueroa MD [address] [place] [address] 4 10:00 AM EST Telemedicine Dermatology, Katarina Santos [address] [facility] [place] [address] [place], Pharmacist Dermatology [address] [facility] [place] [address] 4 10:00 AM EST Hem/Onc Treatment Hematology/Onc ology Treatment, [place] [address] [place] [phone] [place], Chair 3 Hem Onc Scenery [address] [place] [address] 5 2:30 PM EST Office Visit Otol[facility]ology [facility] [address] [place] [address] Anna Ferro MD [address] [place] [address] 5 7:00 AM EDT Pharmacy Neurology L[address] [place] [address] Lore, Pharmacist Neurology 100 [facility] [place] [address] Scheduled Procedures Name Priority [...] this encounter Medical Devices Implanted Type Area Financial Foundations Associate Device Identifier Shelf Expiration Date Model / Serial / Lot Port Pwr Mri Isp Profile - [id number] Implanted:Qty: 1 on 08/09/2015 by Terrance Curry MD at [facility] Left: Chest CR BARD : PERIPHERAL VASCULAR 05/02/2017 [id number] / / [id number] Description:27 length of cat heter documented as [...] Agents on File Name Relationship Healthcare Agent [facility] Communication Lashanda Justus Mother First Alternate Health Care Agent (per Health Care Power of Autocad Electrical Designer document) Care Teams Production Technologist Relationship Specialty Start Date End Date Kimberly Figueroa MD [address] [place] [address], [place] [address] PCP - General Internal Medicine 02/21/21 documented as of this encounter
--- OUTSIDE RECORDS SUMMARY | 2024-04-13 04:59 | External Medical Summary ---
Author Name Unknown Address Unknown Organization K01:[facility] [address] [facility] [address] [place] [address] Laboratory Report Ordering Provider Test Date Status DARRYL ARTIS 01/23/2024 19:51:00 Final Observation Date Value Abnormality Reference (Units ) Status WBC, Total 01/23/2024 19:51:00 5.02 4.00-10.80 (K/uL) Final RBC 01/23/2024 19:51:00 2.32 3.85-5.15 (M/uL) Final Hemoglobin 01/23/2024 19:51:00 8.2 Below low normal 12.0-15.3 (g/dL) Final HCT 01/23/2024 19:51:00 24.3 Below low normal 36.0-45.2 (%) Final MCV 01/23/2024 19:51:00 104.7 81.5-97.5 (fL) Final MCH 01/23/2024 19:51:00 35.3 27.0-34.0 (pg) Final MCHC 01/23/2024 19:51:00 33.7 32.0-36.0 (g/dL) Final RDW 01/23/2024 19:51:00 14.3 11.5-15.5 (%) Final Platelets 01/23/2024 19:51:00 183 140-400 (K/uL) Final MPV 01/23/2024 19:51:00 10.0 6.6-11.1 (fL) Final Nucleated erythrocytes/100 leukocytes [Ratio] in Blood by Automated count 01/23/2024 19:51:00 0 <=0 (/100 WBCs) Final Performing Location [facility] [place] [address] [place] [address]
--- OUTSIDE RECORDS SUMMARY | 2024-04-13 04:59 | External Medical Summary | Summary of Care ---
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 May [...] ICD-10 update of inactive term ROCK RESEARCH OTHER*[id number] 11/17/2007 documented as of this encounter (statuses [...] BMI) 08/01/2009 01/01/2014 Overview: Per Obesity Taxonomy RAILROAD CAR REPAIR SUPERVISOR demyelination 07/11/2009 09/17/2018 ADVANCE DIRECTIVE INFORMATION [...] State Michelle Gill [address] [place] [address] Krystal Thomas PA-C [address] [place] [place] [address] 4 8:41 AM EDT Hospital Encounter OR [facility], Operating Room, [facility] - 4th Floor 400 [facility] [place] [address] Anita Ha MD [address] [place] [address] 4 8:41 AM EDT - 4 9:52 AM EDT Surgery OR [facility], Operating Room, [facility] - 4th Floor [address] [place] [address] Anita Ha MD [address] [place] [address] ESOPHAGOGASTRODUODENOSCOPY (EGD), FLEXIBLE, TRANSORAL, DIAGNOSTIC 4 11:30 AM EDT Nurse Only Ancillary State Michelle Gill [address] [place] [address] Nurse, Int Med [address] [place] [place] [address] 4 3:20 PM EST Office Visit General Internal Medicine State Michelle Gill [address] [place] [address] Kimberly Figueroa MD [address] [place] [address] 4 10:00 AM EST Telemedicine Dermatology, Katarina Santos [address] [facility] [place] [address] Wb, Pharmacist Dermatology E Mtn [facility] [address] [facility] [place] [address] 4 10:00 AM EST Hem/Onc Treatment Hematology/Onc ology Treatment, [place] [address] [place] [address] Catina, Chair 3 Hem Onc Scenery [address] [place] [address] 5 2:30 PM EST Office Visit [facility]ol[facility] [place] [address] Anna Ferro MD [address] [place] [address] 5 7:00 AM EDT Pharmacy Neurology Lisa [address] [place], [place] [address] Lisa, Pharmacist Neurology 100 [facility] [place] [address] Scheduled Procedures Name Priority [...] this encounter Medical Devices Implanted Type Area Bakery Team Leader Device Identifier Shelf Expiration Date Model / Serial / Lot Port Pwr Mri Isp Profile - [id number] Implanted:Qty: 1 on 08/09/2015 by Terrance Curry MD at [facility] Left: Chest CR BARD : PERIPHERAL VASCULAR 05/02/2017 [id number] / / [id number] Description:27 length of cat heter documented as of this encounter Procedures Procedure Name Priority Date/Time Associated Diagnosis Comments RADIOLOGY EXAM - CT (IMAGES ONLY, NO REPORT) Routine 01/22/2024 4:00 PM EDT documented in this encounter Results * RADIOLOGY EXAM - CT (IMAGES ONLY, NO REPORT) (01/22/2024 4:00 PM EDT) 01/22/2024 3:59 PM EDT Narrative Scheduling, Silent - 01/23/2024 6:49 PM EDT This is an imaging study not interpreted or resulted by a [facility] or [facility] contracted radiologist. Laurence Olivarez DO RAD CT documented in this encounter Advance Directives * [...] Name Relationship Healthcare Agent Relationshi p Communication Lahsanda Jerome Mother First Alternate Health Care Agent (per Health Care Power of Muskrat Trapper document) Care Teams Qa Automation Architect Relationship Specialty Start Date End Date Kimberly Figueroa MD [address] [place] [address] PCP - General Internal Medicine 02/21/21 documented as of this encounter
--- OUTSIDE RECORDS SUMMARY | 2024-04-13 04:59 | External Medical Summary ---
Author Name Unknown Address Unknown Organization K01:[facility] [place] [address] [place] [address] Laboratory Report Ordering Provider Test Date Status DARRYL ARTIS 01/24/2024 04:21:03 Final Observation Date Value Abnormality Reference (Units ) Status WBC, Total 01/24/2024 04:21:03 4.06 4.00-10.80 (K/uL) Final RBC 01/24/2024 04:21:03 2.12 3.85-5.15 (M/uL) Final Hemoglobin 01/24/2024 04:21:03 7.4 Below low normal 12.0-15.3 (g/dL) Final HCT 01/24/2024 04:21:03 23.3 Below low normal 36.0-45.2 (%) Final MCV 01/24/2024 04:21:03 109.9 81.5-97.5 (fL) Final MCH 01/24/2024 04:21:03 34.9 27.0-34.0 (pg) Final MCHC 01/24/2024 04:21:03 31.8 32.0-36.0 (g/dL) Final RDW 01/24/2024 04:21:03 13.8 11.5-15.5 (%) Final Platelets 01/24/2024 04:21:03 177 140-400 (K/uL) Final MPV 01/24/2024 04:21:03 9.8 6.6-11.1 (fL) Final Nucleated erythrocytes/100 leukocytes [Ratio] in Blood by Automated count 01/24/2024 04:21:03 0 <=0 (/100 WBCs) Final Performing Location [facility] [place] [facility] [address] [place] [address]
--- OUTSIDE RECORDS SUMMARY | 2024-04-13 04:59 | External Medical Summary ---
Author Name Unknown Address Unknown Organization K01:[facility] [place] [address] [place] [address] Laboratory Report Ordering Provider Test Date Status DARRYL ARTIS 01/23/2024 23:12:00 Final Observation Date Value Abnormality Reference (Units ) Status WBC, Total 01/23/2024 23:12:00 5.20 4.00-10.80 (K/uL) Final RBC 01/23/2024 23:12:00 2.29 3.85-5.15 (M/uL) Final Hemoglobin 01/23/2024 23:12:00 8.1 Below low normal 12.0-15.3 (g/dL) Final HCT 01/23/2024 23:12:00 23.9 Below low normal 36.0-45.2 (%) Final MCV 01/23/2024 23:12:00 104.4 81.5-97.5 (fL) Final MCH 01/23/2024 23:12:00 35.4 27.0-34.0 (pg) Final MCHC 01/23/2024 23:12:00 33.9 32.0-36.0 (g/dL) Final RDW 01/23/2024 23:12:00 14.1 11.5-15.5 (%) Final Platelets 01/23/2024 23:12:00 189 140-400 (K/uL) Final MPV 01/23/2024 23:12:00 10.2 6.6-11.1 (fL) Final Nucleated erythrocytes/100 leukocytes [Ratio] in Blood by Automated count 01/23/2024 23:12:00 0 <=0 (/100 WBCs) Final Performing Location [facility] [place] [address] [place] [address]
--- OUTSIDE RECORDS SUMMARY | 2024-04-13 04:59 | External Medical Summary | Summary of Care ---
Author Name Unknown Organization [facility] Address [address] [facility] [address] Phone [phone] Care Team Providers Care Day Porter Name Role Phone Kimberly Figueroa MD Primary Care Provider + Reason for Visit * Reason Onset Date Comments Hospital Follow-Up 01/24/2024 [facility] 3 day pcp f/u needed. No appt avail. Please assist with patient scheduling. Thank you. Encounter Details Date Type Department Care Team (Late st Contact Info) Description 01/24/2024 Telephone General Internal Medicine Alexey Dominique [place] 200 [facility] [place] [address] Kimberly [facility]ueroa MD [facility] [address] [facility] Follow[facility] ([facility] 01/24/24 3 day ... Allergies Active Allergy [...] Date Status CHERRIE COMPLETE PO CHEW daily Suspende d Cholecalciferol (VITAMIN D3) 5000 UNITS Tablet Take 1 Cap by mouth daily. Take with additonal 1000 units for total of 6000 units daily 30 Cap 11 6 Suspended Additional Information Cranberry 500 MG Capsule [...] Information Topiramate 50 MG Oral Tablet (topAMAX)Indicatio ns:SLURRY MIXER demyelination (HCC) TAKE 1 TABLET BY MOUTH [...] 60 mL 2 2 Suspended Additional Information Venlafaxine HCl 50 MG [...] Nausea. or vomiting 20 Tablet 1 3 Suspended Additional Information Rizatriptan Benzoate 10 MG Oral Tablet (Maxalt)Indication s:SLURRY MIXER demyelination (HCC) one at onset. May repeat two hour if neeed 9 Tablet 5 3 Suspended Additional Information Triamcinolone Acetonide 0.1 % External Cream (Aristocort) Apply topically to affected area 2 times a day. Apply to rash areas. 30 g 4 Suspended Additional Information Fluocinonide 0.05 % External [...] 2 Each 3 4 Suspended Additional Information Fexofenadine-Pseud oephed ER 180-240 [...] 150 g 3 4 Suspended Additional Information Sertraline HCl 100 MG [...] 4 mL 2 4 Suspended Additional Information Omeprazole 40 MG Oral [...] ICD-10 update of inactive term ROCK RESEARCH OTHER*[id number] 11/17/2007 documented as of this encounter (statuses [...] BMI) 08/01/2009 01/01/2014 Overview: Per Obesity Taxonomy SLURRY MIXER demyelination 07/11/2009 09/17/2018 ADVANCE DIRECTIVE INFORMATION 07/03/2009 [...] encounter Miscellaneous Notes * Telephone Encounter - Carole AdaBIANCA Caceres - 01/24/2024 9:53 AM EDT Robb Jerome 01/22/2024 10:03 PM Admission Description: 33 year old female Department: [address] Message Patient Name: ROBB JEROME([id number]) Sex: Female : 1990 PCP: KIMBERLY FIGUEROA Center: [facility] Types of orders made on 01/24/2024: IP Post Discharge , Lab, Medications Order Date:01/24/2024 Ordering User:VIKAS ANDREWS [[id number]] Attending Provider :Laurence Olivarez DO [[id number]] Authorizing Provider: Vikas Andrews MD [[id number]] Department:[address][[id number]] Order Specific Information Order: RETURN APPT [CUSTOM: [id number]] Order #: [id number]: 1 Priority: Routine Class: Nursing Unit Department [...] KIMBERLY FIGUEROA Released on: 01/24/2024 12:51 PM [facility] 01/24/24 3 day pcp f/u needed. No appt avail. Please assist with patient scheduling. Thank you. Robb Jerome 01/22/2024 10:03 PM Admission Description: 33 year old female Department: [address] Message Patient Name: ROBB JEROME([id number]) Sex: Female : 1990 PCP: KIMBERLY FIGUEROA Center: [facility] Types of orders made on 01/24/2024: IP Post Discharge , Lab, Medications Order Date:01/24/2024 Ordering User:VIKAS ANDREWS [[id number]] Attending Provider :Laurence Olivarez DO [[id number]] Authorizing Provider: Vikas Andrews MD [[id number]] Department:BP7 [facility][[id number]] Order Specific Information Order: RETURN APPT [CUSTOM: [id number]] Order #: [id number] Priority: Routine Class: Nursing Unit Department [...] EDT Office Visit Allergy/Immuno logy Alex[place] Dominique [place] [address] [place] [address] Krystal Thomas PA-C [address] [place] [address] 4 8:41 AM EDT Hospital Encounter OR [facility], Operating Room, [facility] - 4th Floor [address] [place] [phone] Anita Ha MD [address] [place] [address] 4 8:41 AM EDT - 4 9:52 AM EDT Surgery OR [facility], [facility], [facility] - 4th Floor [address] [place] [phone] Anita Ha MD [address] [place] [address] ESOPHAGOGASTRODUODENOSCOPY (EGD), FLEXIBLE, TRANSORAL, DIAGNOSTIC 4 11:30 AM EDT Nurse Only Ancillary [facility] [place] 200 [facility] [place] [address] Nurse, Int Med 200 [facility] [place] [address] 4 3:20 PM EST Office Visit General Internal Medicine [facility] [place] [address] [facility] [place] [address] Kimberly Figueroa MD 200 [facility] [place] [address] 4 10:00 AM EST Telemedicine Dermatology, Katarina Santos [address] [facility] [place] [address] Wb, Pharmacist Dermatology E Mtn [facility] [address] [facility] [place] [address] 4 10:00 AM EST Hem/Onc Treatment Hematology/Onc ology Treatment, [place] [address] [facility] [place] [phone] Catina, Chair 3 Hem Onc [facility] 200 [facility] [place] [address] 5 2:30 PM EST Office Visit Otolaryngology [facility] 132 [place] [address] Anna Ferro MD [address] [place] [address] 7:00 AM EDT Pharmacy Neurology [address] [place] [address] Lore, Pharmacist Neurology 100 [facility] [place] [address] Scheduled Procedures Name Priority [...] this encounter Medical Devices Implanted Type Area Sueding Machine Tender Device Identifier Shelf Expiration Date Model / Serial / Lot Port Pwr Mri Isp Profile - [id number] Implanted:Qty: 1 on 08/09/2015 by Terrance Curry MD at [facility] Left: Chest CR BARD : PERIPHERAL VASCULAR 05/02/2017 [id number] / / [id number] Description:27 length of cat heter documented as [...] Care Agent (per Health Care Power of School Commissioner document) Care Teams Day Porter Relationship Specialty Start Date End Date Kimberly Figueroa MD 200 [facility] [place] [address] PCP - General Internal Medicine 02/21/21 documented as of this encounter
--- OUTSIDE RECORDS SUMMARY | 2024-04-13 04:59 | External Medical Summary | Summary of Care ---
Author Name Unknown Organization [facility] Address [address] [place] [address] Phone [phone] Care Team Providers Care Process Steward Name Role Phone Kimberly Figueroa MD Primary Care Provider + Encounter Details Date Type Department Care Team (Late st Contact Info) Description 01/22/2024 Orders Only General Internal Medicine, [facility] [address] [place] [address] Laurence Olivarez DO [address] [facility] [place] [address] Allergies Active Allergy Reactions Criticality Noted Date Comments Cephalexin Hives 01/24/2010 As a small child Clindamycin Hives 12/30/2014 " And bad heartburn" As an adult about age 24 Hydrocodone Medium 12/26/2018 Other reaction(s): Itching Methocarbamol Rash High 06/17/2016 Sulfa Antibiotics Hives 08/05/2006 As a small child Hydrocodone-Acetaminophen Itching 01/01/2014 documented as of this encounter (statuses as of 01/23/2024) Medications Medication Sig Dispensed Refills Start Date End Date Status FLINTSTONES COMPLETE PO CHEW daily Suspende d Cholecalciferol (VITAMIN D3) 5000 UNITS Tablet Take 1 Cap by mouth daily. Take with additonal 1000 units for total of 6000 units daily 30 Cap 11 09/28/2015 Suspended Additional Information Patient taking differently:5,000 Units [...] 100 Strip 11 02/03/2019 Suspended Additional Information ONEMARCELINO DELSADIA LANCETS 33G MISCIndications:Hy poglycemia Test blood sugar once daily as directed. 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 180 Capsule 3 03/14/2022 Suspended Additional Information Venlafaxine HCl 50 MG [...] Benzoate 10 MG Oral Tablet (Maxalt)Indication s:CONTROL AND RECOVERY COMBAT RESCUE demyelination (HCC) one at onset. May repeat two hour if neeed 9 Tablet 5 02/19/2023 Suspended Additional Information Triamcinolone Acetonide 0.1 % External Cream (Aristocort) Apply topically to affected area 2 times a day. Apply to rash areas. 30 g 07/23/2023 Suspended Additional Information Clobetasol Propionate 0.05 % External Cream (Temovate)Indicati ons:Rash and nonspecific skin eruption Apply topically to affected area 2 times a day. To affected area for up to two weeks. 30 g 3 07/30/2023 Suspended Additional Information Patient not taking.Reported on 01/17/2024 Fluocinonide 0.05 % External OintmentIndication s:Rash and [...] 2 Each 3 10/21/2023 Suspended Additional Information Patient not taking.Reported on [...] as of this encounter (statuses as of 01/23/2024) Active Problems Problem Noted Date Diagnosed Date Hematemesis 01/22/2024 Upper GI bleed 01/22/2024 Gastrointestinal hemorrhage with melena 01/22/20 24 [...] ICD-10 update of inactive term ROCK RESEARCH OTHER*[id number] 11/17/2007 documented as of this encounter (statuses as of 01/23/2024) Resolved Problems Problem Noted Date Diagnosed Date Resolved Date Gastrostomy status 02/19/2023 3 Dehydration 01/19/2022 11/21/2022 [...] 08/01/2009 01/01/2014 Overview: Per Obesity Taxonomy CONTROL AND RECOVERY COMBAT RESCUE demyelination 07/11/2009 09/17/2018 ADVANCE DIRECTIVE INFORMATION 07/03/2009 [...] as of this encounter (statuses as of 01/23/2024) Immunizations Name Administration Dates Next Due COVID-19 [...] No 05/20/2023 Does the household have a [facility] source of income? (Household - for ages [...] State Michelle Gill [address] [place] [address] [address] Krystal Thomas PA-C [address] [place] [place] [address] 4 8:41 AM EDT Hospital Encounter OR [facility], Operating Room, [facility] - 4th Floor 400 [place] [address] Anita Ha MD [address] [place] [address] 4 8:41 AM EDT - 4 9:52 AM EDT Surgery OR [facility], Operating Room, [facility] - 4th Floor [address] [place] [phone] Anita Ha MD [address] [place] [address] ESOPHAGOGASTRODUODENOSCOPY (EGD), FLEXIBLE, TRANSORAL, DIAGNOSTIC 4 11:30 AM EDT Nurse Only Ancillary State Michelle Gill [address] [place] [address] Nurse, Int Med [address] [place] [address] 4 3:20 PM EST Office Visit General Internal Medicine State Michelle Gill [address] [place] [address] Kimberly Figueroa MD [address] [place] [address] 4 10:00 AM EST Telemedicine Dermatology, Katarina Santos [address] [facility] [place] [address] Wb, Pharmacist Dermatology E Mtn [facility] [address] [facility] [place] [address] 4 10:00 AM EST Hem/Onc Treatment Hematology/Onc ology Treatment, [place] [address] [place] [address] Catina, Chair 3 Hem Onc Scenery [address] [place] [address] 5 2:30 PM EST Office Visit Otol[facility]ology [facility] [address] [place] [address] Anna Ferro MD [address] [place] [address] 5 7:00 AM EDT Pharmacy Neurology [address] [place] [phone] Lore, Pharmacist Neurology 100 [facility] [place] [id number] Scheduled Procedures Name Priority Associated Diagnoses Date/Ti me ESOPHAGOGASTRODUODENOSCOPY ( EGD), FLEXIBLE, TRANSORAL, DIAGNOSTIC Hematemesis 01/23/2024 1:47 PM EDT ESOPHAGOGASTRODUODENOSCOPY ( EGD), FLEXIBLE, TRANSORAL, DIAGNOSTIC Gastrogastric [...] this encounter Medical Devices Implanted Type Area Hearse Driver Device Identifier Shelf Expiration Date Model / Serial / Lot Port Pwr Mri Isp Profile - [id number] Implanted:Qty: 1 on 08/09/2015 by Terrance Curry MD at [facility] Left: Chest CR BARD : PERIPHERAL VASCULAR 05/02/2017 [id number] / / [id number] Description:27 length of cat heter documented as [...] interpreted or resulted by a [facility] or [facility] contracted radiologist. Laurence Olivarez DO RAD CT [...] Agents on File Name Relationship Healthcare Agent [facility] Communication Lashanda Justus Mother First Alternate Health Care Agent (per Health Care Power of Guide Cruise document) Care Teams Process Steward Relationship Specialty Start Date End Date Kimberly Figueroa MD [facility] [place] [address] PCP - General Internal Medicine 02/21/21 documented as of this encounter
--- OUTSIDE RECORDS SUMMARY | 2024-04-13 04:59 | External Medical Summary | Summary of Care ---
Author Name Unknown Organization [facility] Address [address] [place] [address] Phone [phone] Care Team Providers Care Home Care Associate Name Role Phone Kimberly Figueroa MD Primary Care Provider + Encounter Details Date Type Department Care Team (Late st Contact Info) Description 01/22/2024 Orders Only General Internal Medicine, [facility] [address] [place] [address] Laurence Olivarez DO [address] [facility] [place] [address] Allergies Active Allergy Reactions Criticality [...] Strip 11 02/03/2019 Suspended Additional Information ONEMARCELINO DELSAIDA LANCETS 33G MISCIndications:Hy poglycemia Test blood sugar once daily as directed. 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 May repeat [...] ICD-10 update of inactive term ROCK RESEARCH OTHER*[id number] 11/17/2007 documented as of this encounter (statuses [...] BMI) 08/01/2009 01/01/2014 Overview: Per Obesity Taxonomy OUTSOLE FLEXER demyelination 07/11/2009 09/17/2018 ADVANCE DIRECTIVE INFORMATION 07/03/2009 [...] No 05/20/2023 Does the household have a [facility] source of income? (Household - for [...] State Michelle Gill [address] [place] [address] [address] Krystal Thomas PA-C [address] [place] [address] 4 8:41 AM EDT Hospital Encounter OR [facility], Operating Room, [facility] - 4th Floor 400 [facility] [place] [address] Anita Ha MD [address] [place] [address] 4 8:41 AM EDT - 4 9:52 AM EDT Surgery OR [facility], Operating Room, [facility] - 4th Floor [address] [place] [address] [place] [phone] Anita Ha MD [address] [place] [address] ESOPHAGOGASTRODUODENOSCOPY (EGD), FLEXIBLE, TRANSORAL, DIAGNOSTIC 4 11:30 AM EDT Nurse Only Ancillary State Michelle [place] [address] [place] [address] Nurse, Int Med [address] [place] [address] 4 3:20 PM EST Office Visit General Internal Medicine State Michelle Gill [address] [place] [address] Kimberly Figueroa MD [address] [place] [address] 4 10:00 AM EST Telemedicine Dermatology, Katarina Santos [address] [facility] [place] [address] Wb, Pharmacist Dermatology E Mtn [facility] [address] [facility] [place] [address] 4 10:00 AM EST Hem/Onc Treatment Hematology/Onc ology Treatment, [place] [address] [place] [address] Catina, Chair 3 Hem Onc Scenery [address] [place] [address] 5 2:30 PM EST Office Visit Otolaryngology [facility] [address] [place] [address] Anna Ferro MD [address] [place] [address] 5 7:00 AM EDT Pharmacy Neurology [address] [place] [phone] Lore, Pharmacist Neurology 100 [facility] [place] [id number] Scheduled Procedures Name Priority Associated Diagnoses Date/Ti [...] this encounter Medical Devices Implanted Type Area Computer Game Designer Device Identifier Shelf Expiration Date Model / Serial / Lot Port Pwr Mri Isp Profile - [id number] Implanted:Qty: 1 on 08/09/2015 by Terrance Curry MD at [facility] Left: Chest CR BARD : PERIPHERAL VASCULAR 05/02/2017 [id number] / / [id number] Description:27 length of cat heter documented as [...] interpreted or resulted by a [facility] or [facility] contracted radiologist. Laurence Olivarez DO RADIOLOGY (RAD [...] Care Agent (per Health Care Power of Extension Educator document) Care Teams Home Care Associate Relationship Specialty Start Date End Date Kimberly Figueroa MD [address] [place] [address] PCP - General Internal Medicine 02/21/21 documented as of this encounter
--- OUTSIDE RECORDS SUMMARY | 2024-04-13 04:59 | External Medical Summary ---
Author Name Unknown Address Unknown Organization [id number]:LABORATORY [place] [address] [place] [address] Laboratory Report Ordering Provider Test Date Status DARRYL ARTIS 01/24/2024 11:28:00 Final Observation Date Value Abnormality Reference (Units ) Status WBC, Total 01/24/2024 11:28:00 4.91 4.00-10.80 (K/uL) Final RBC 01/24/2024 11:28:00 2.29 3.85-5.15 (M/uL) Final Hemoglobin 01/24/2024 11:28:00 8.3 Below low normal 12.0-15.3 (g/dL) Final HCT 01/24/2024 11:28:00 24.6 Below low normal 36.0-45.2 (%) Final MCV 01/24/2024 11:28:00 107.4 81.5-97.5 (fL) Final MCH 01/24/2024 11:28:00 36.2 27.0-34.0 (pg) Final MCHC 01/24/2024 11:28:00 33.7 32.0-36.0 (g/dL) Final RDW 01/24/2024 11:28:00 13.9 11.5-15.5 (%) Final Platelets 01/24/2024 11:28:00 193 140-400 (K/uL) Final MPV 01/24/2024 11:28:00 10.2 6.6-11.1 (fL) Final Nucleated erythrocytes/100 leukocytes [Ratio] in Blood by Automated count 01/24/2024 11:28:00 0 <=0 (/100 WBCs) Final Performing Location [place] [facility] [place] [facility] [address] [place] [address]
--- OUTSIDE RECORDS SUMMARY | 2024-04-13 05:00 | External Medical Summary ---
Author Name Unknown Address Unknown Organization [id number]:LABORATORY [facility] - [address] [place] [address] Laboratory Report Ordering Provider Test Date Status RYAN SAUCEDO 01/23/2024 06:08:42 Final Observation Date Value Abnormality Reference (Units ) Status BUN 01/23/2024 06:08:42 13 6-20 (mg/dL) Final Creatinine 01/23/2024 06:08:42 0.6 0.5-1.0 (mg/dL) Final Glomerular filtration rate/1.73 sq M.predicted [Volume Rate/Area] in Serum, Plasma or Blood by Creatinine-based formula (CKD-EPI) 01/23/2024 06:08:42 >90 >=60 (mL/min) Final eGFR is calculated based on the CKD-EPI 2020 equation. Sodium 01/23/2024 06:08:42 136 135-146 (m mol/L) Final Potassium 01/23/2024 06:08:42 3.9 3.5-5.1 (m mol/L) Final Cl 01/23/2024 06:08:42 107 98-107 (mm ol/L) Final CO2 01/23/2024 06:08:42 20 Below low normal 22- 32 (mmol/L) Final Anion gap 01/23/2024 06:08:42 9 7-15 (mmol /L) Final Glucose 01/23/2024 06:08:42 91 70-120 (mg /dL) Final Albumin 01/23/2024 06:08:42 3.1 Below low normal 3.8 -5.0 (g/dL) Final AST (Aspartate aminotransferase) 01/23/2024 06:08:42 12 10-35 (U/L) Fin al Alk Phos 01/23/2024 06:08:42 140 Above high normal 35 -130 (U/L) Final Bilirubin, Total 01/23/2024 06:08:42 0.7 <=1 .2 (mg/dL) Final Calcium 01/23/2024 06:08:42 8.4 8.4-10.2 ( mg/dL) Final Protein 01/23/2024 06:08:42 4.8 Below low normal 6.0 -8.3 (g/dL) Final ALT (Alanine aminotransferase) 01/23/2024 06:08:42 16 10-35 (U/L) Mike penn Performing Location LABORATORY [facility] - [address] [facility] [address]
--- OUTSIDE RECORDS SUMMARY | 2024-04-13 05:00 | External Medical Summary ---
Author Name Unknown Address Unknown Organization K01:LABORATORY [facility] - [address] [place] [address] Laboratory Report Ordering Provider Test Date Status GARRET SAUCEDOFQAT 01/23/2024 06:08:42 Final Observation Date Value Abnormality Reference (Units ) Status Magnesium 01/23/2024 06:08:42 2.0 1.5-2.6 (m g/dL) Final Performing Location LABORATORY [facility] - [address] [place] [address]
--- OUTSIDE RECORDS SUMMARY | 2024-04-13 05:00 | External Medical Summary ---
Author Name Unknown Address Unknown Organization K01:LAB[facility]ATORY [facility] - [address] [place] [address] Laboratory Report Ordering Provider Test Date Status SHERYLRYAN 01/23/2024 06:08:42 Final Observation Date Value Abnormality Reference (Units ) Status Phosphate 01/23/2024 06:08:42 4.6 2.5-4.8 (m g/dL) Final Performing Location LABORATORY [facility] - [address] [place] [address]
--- OUTSIDE RECORDS SUMMARY | 2024-04-13 05:00 | External Medical Summary | Summary of Care ---
Author Name Unknown Organization [facility] Address [address] [facility] [place] [address] Phone [phone] Care Team Providers Care University Controller Name Role Phone Kimberly Figueroa MD Primary Care Provider + Encounter Details Date Type Department Care Team (Late st Contact Info) Description 01/23/2024 Population Health External Data Unspecified Department Allergies Active Allergy Reactions Criticality Noted Date [...] Strip 11 02/03/2019 Suspended Additional Information ONETOUCH DENIS LANCETS 33G MISCIndications:Hy poglycemia Test blood sugar once daily as directed. 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 May repeat [...] ICD-10 update of inactive term ROCK RESEARCH OTHER*[id number] 11/17/2007 documented as of this encounter (statuses [...] BMI) 08/01/2009 01/01/2014 Overview: Per Obesity Taxonomy LICENSED DISPENSING OPTICIAN demyelination 07/11/2009 09/17/2018 ADVANCE DIRECTIVE INFORMATION 07/03/2009 [...] State Michelle Gill [address] [place] [address] Krystal Thomas PA-C [address] [place] [address] 4 8:41 AM EDT Hospital Encounter OR [facility], Operating Room, [facility] - 4th Floor [address] [place] [phone] Ainta Ha MD [address] [place] [address] 4 8:41 AM EDT - 4 9:52 AM EDT Surgery OR [facility], Operating Room, [facility] - 4th Floor [address] [place] [phone] Anita Ha MD [address] [place] [address] ESOPHAGOGASTRODUODENOSCOPY (EGD), FLEXIBLE, TRANSORAL, DIAGNOSTIC 4 11:30 AM EDT Nurse Only Ancillary State Michelle Gill [address] [place] [address] Nurse, Int Med [address] [place] [place] [address] 4 3:20 PM EST Office Visit General Internal Medicine State Michelle Gill [address] [place] [address] Kimberly Figueroa MD [address] [place] [place] [address] [address] 4 10:00 AM EST Telemedicine Dermatology, Katarina Santos [facility] [address] [facility] [place] [address] [place], Pharmacist Dermatology E T[facility] [address] [facility] [place] [address] 4 10:00 AM EST Hem/Onc Treatment Hematology/Onc ology Treatment, [place] [address] [place] [phone] Park, Chair 3 Hem Onc [place] [address] [place] [address] 5 2:30 PM EST Office Visit Otolaryngology [facility] [address] [place] [address] Anna Ferro MD [address] [place] [address] 5 7:00 AM EDT Pharmacy Neurology [address] [place], [place] [phone] [place], Pharmacist Neurology [address] [facility] [place] [address] Scheduled Procedures Name Priority [...] this encounter Medical Devices Implanted Type Area Shock Absorption Floor Layer Device Identifier Shelf Expiration Date Model / Serial / Lot Port Pwr Mri Isp Profile - [id number] Implanted:Qty: 1 on 08/09/2015 by Terrance Curry MD at [facility] Left: Chest CR BARD : PERIPHERAL VASCULAR 05/02/2017 [id number] / / [id number] Description:27 length of cat heter documented as [...] Care Agent (per Health Care Power of Pattern Ruler document) Care Teams University Controller Relationship Specialty Start Date End Date Kimberly Figueroa MD [address] [place] [address] PCP - General Internal Medicine 02/21/21 documented as of this encounter
--- OUTSIDE RECORDS SUMMARY | 2024-04-13 05:00 | External Medical Summary ---
Author Name Unknown Address Unknown Organization K01:[facility] [place] [facility] - [address] [place] [address] Laboratory Report Ordering Provider Test Date Status PURNIMA LE 01/23/2024 01:22:00 Final Observation Date Value Abnormality Reference (Units ) Status ABO 01/23/2024 01:22:00 O Final RH 01/23/2024 01:22:00 Positive Final RED BLOOD CELL ANTIBODY SCREEN 01/23/2024 01:22:00 Negative Final SPECIMEN EXPIRATION DATE 01/23/2024 01:22:00 01/26/2024 23:59 Final Performing Location [facility] - [address] [place] [address]
--- OUTSIDE RECORDS SUMMARY | 2024-04-13 05:00 | External Medical Summary ---
Author Name Unknown Address Unknown Organization K01:LABORATORY [place] [address] [place] [address] Laboratory Report Ordering Provider Test Date Status DARRYL ARTIS 01/23/2024 11:45:00 Final Observation Date Value Abnormality Reference (Units ) Status WBC, Total 01/23/2024 11:45:00 4.07 4.00-10.80 (K/uL) Final RBC 01/23/2024 11:45:00 2.43 3.85-5.15 (M/uL) Final Hemoglobin 01/23/2024 11:45:00 8.6 Below low normal 12.0-15.3 (g/dL) Final HCT 01/23/2024 11:45:00 26.5 Below low normal 36.0-45.2 (%) Final MCV 01/23/2024 11:45:00 109.1 81.5-97.5 (fL) Final MCH 01/23/2024 11:45:00 35.4 27.0-34.0 (pg) Final MCHC 01/23/2024 11:45:00 32.5 32.0-36.0 (g/dL) Final RDW 01/23/2024 11:45:00 14.2 11.5-15.5 (%) Final Platelets 01/23/2024 11:45:00 190 140-400 (K/uL) Final MPV 01/23/2024 11:45:00 9.6 6.6-11.1 (fL) Final Nucleated erythrocytes/100 leukocytes [Ratio] in Blood by Automated count 01/23/2024 11:45:00 0 <=0 (/100 WBCs) Final Performing Location [place] [facility] [place] [facility] [place] [address] [place] [address]
--- OUTSIDE RECORDS SUMMARY | 2024-04-13 05:38 | External Medical Summary | Summary of Care ---
Author Name Unknown Organization [facility] Address [address] [place] [address] Phone [phone] Care Team Providers Care Certifier Name Role Phone Kimberly Figueroa MD Primary Care Provider + Reason for Visit * Reason Onset Date Comments Advice 04/12/2024 Encounter Details Date Type Department Care Team (Late st Contact Info) Description 04/12/2024 [place] [facility] [place] [address] [place] [address] Clark Alarcon MD [address] [place] [address] Advice (/) Allergies Active Allergy Reactions Criticality Noted Date Comments Cephalexin Hives 01/24/2010 As a small child Clindamycin Hives 12/30/2014 " And bad heartburn" As an adult about age 24 Methocarbamol Rash High 06/17/2016 Sulfa Antibiotics Hives 08/05/2006 As a small child Hydrocodone-Acetaminophen Itching 01/01/2014 documented as of this encounter (statuses as of 04/12/2024) Medications FLINTSTONES COMPLETE PO CHEW daily Act mari Cholecalciferol (VITAMIN D3) 5000 UNITS Tablet Take 1 Cap by mouth daily. Take with additonal 1000 units for total of 6000 units daily 30 Cap 11 09/28/19 16 Active Cranberry 500 MG Capsule Take 1 Capsule by mouth in the morning. 04/03/20 18 Active vitamin b-12 (CYANOCOBALAMIN) 1000 MCG/ML [...] Active Topiramate 50 MG Oral Tablet (topAMAX)Indicati ons:CUTTER FIRST demyelination (HCC) TAKE 1 TABLET BY MOUTH [...] Rizatriptan Benzoate 10 MG Oral Tablet (Maxalt)Indicatio ns:CUTTER FIRST demyelination (HCC) one at onset. May repeat [...] 180-240 MG Tablet Extended Release 24 Hour (Egmma-D Allergy & Congestion) Take 1 Tablet by [...] 150 mgIndications:Depo-Provera contraceptive status 150 mg IM [id number] 02/08/2023 07/27/2025 Acti ve documented as of this encounter (statuses as of 04/12/2024) Active Problems Problem Noted Date Diagnosed Date [...] ICD-10 update of inactive term ROCK RESEARCH OTHER*[id number] 11/17/2007 documented as of this encounter (statuses as of 04/12/2024) Resolved Problems Problem Noted Date Diagnosed Date [...] 08/01/2009 01/01/2014 Overview (08/01/2009): Per Obesity Taxonomy CUTTER FIRST demyelination 07/11/2009 09/17/2018 ADVANCE DIRECTIVE INFORMATION 07/03/2009 [...] as of this encounter (statuses as of 04/12/2024) Immunizations Name Administration Dates Next Due COVID-19 [...] encounter Miscellaneous Notes * Telephone Encounter - Clark Alarcon MD - 04/12/2024 1:56 AM EST Called by [facility] re: Ms. Jerome, who presented there tonight with left leg pain and decreased sensation starting in the hip and running down the entire leg. No weakness. She and her mother reported that this is a typical flare for her. Advised checking CBC, chemistries, and UA but that a "typical flare" would be more suggestive of recrudescence than a true flare. Advised that if labs were normal, she could try gabapentin 100mg tid but that she should keep her scheduled appointment with Frida Ramírez on Saturday (tomorrow). Labs subsequently returned with Hgb 7.8 and Na 124 (down from 10.3 and 133, respectively, on 01/21).Being admitted for same. documented in this encounter Plan of Treatment Upcoming Encounters Date Type Department Care Team (Latest Contact Info) Description 4 2:00 PM EST Office Visit Neurology [address] [place] [phone] Frida Ramírez PA-C [address] [facility] [place] [phone] 4 11:40 AM EST Office Visit General Internal Medicine [facility] [place] [address] [place] [address] Kimberly Figueroa MD [address] [place] [address] 4 2:00 PM EST Hem/Onc Treatment Hematology/Onc ology Treatment, [place] [address] [place] [phone] Catina, Chair 6 Hem Onc [facility] [address] [address] 4 8:00 AM EST Hospital Encounter OR [facility], Operating Room, [facility] - 4th Floor [address] [place] [address] Anita Ha MD [address] [place] [address] 4 8:00 AM EST - 4 8:32 AM EST Surgery OR [facility], Operating Room, [facility] - 4th Floor [address] [place] [phone] Anita Ha MD [address] [place] [address] ESOPHAGOGASTRODUODENOSCOPY (EGD), FLEXIBLE, TRANSORAL, DIAGNOSTIC 4 10:00 AM EST Telemedicine Dermatology, Katarina Santos [address] [facility] [place] [address] , Pharmacist Dermatology E [facility] [address] [facility] [place] [address] 4 10:00 AM EST Hem/Onc Treatment Hematology/Onc ology Treatment, [place] [address] [place] [address] Catina, Chair 3 Hem Onc [facility] [address] [facility] [place] [address] 5 2:30 PM EDT Office Visit Hematology/Onc ology [facility] [place] [address] [place] [address] Tori Braxton CRNP [address] [facility] [place] [address] 5 7:00 AM EDT Pharmacy Neurology [address] [place] [place], [place] [phone] [place], Pharmacist Neurology [address] [place], [place] [address] [address] Scheduled Procedures Name Priority Associated Diagnoses Date/Ti [...] this encounter Medical Devices Implanted Type Area Telesales Manager Device Identifier Shelf Expiration Date Model / Serial / Lot Port Pwr Mri Isp Profile - [id number] Implanted:Qty : 1 on 08/09/2015 [place] [facility] [place]: Chest CR BARD : PERIPHERAL VASCULAR 05/02/2017 [id number] / / [id number] Description:27 length of cat heter Set Sys [facility] 11-6t 165cm - [id number] Implanted:Qty : 1 on 02/13/2024 by Anita Ha MD at OR [facility] [id number] 01/03/2025 100. 10 / / [id number] documented as of this encounter Advance Directives [...] File Name Relationship Healthcare Agent [facility] Communication Lashanda Justus Mother First Alternate Health Care Agent (per Health Care Power of Customer Service Manager document) Care Teams Certifier Relationship Specialty Start Date End Date Kimberly Figueroa MD [facility] [place] [address] PCP - General Internal Medicine 02/21/21 documented as of this encounter
[2024-04-13] MEDS: GABAPENTIN 600 MG TAB PO SCH (06:03)
[2024-04-13 08:21] VITALS: BP 125/93; TEMP 98.2; O2SAT 100
[2024-04-13 08:26] LABS: BUN Creatinine Ratio 7.1 (10-20); Calcium 8.3 mg/dl (8.6-10.3); Creatinine Clr Calc Pharmacy 234.5 ml/min; Potassium 3.8 mmol/L (3.5-5.1)
[2024-04-13] MEDS: IRON SUCROSE 300 MG in SODIUM CHLORIDE 0.9% 250 ML IV ONE (09:01)
--- NOTE | 2024-04-13 09:11 | Nephrology Progress Note ---
Date of Service April 13, 2024 Assessment & Plan Admission and Anticipated Discharge Date Admission Date: April 12, 2024 Subjective Assessment & Plan (1) Hyponatremia: It looks like she has chronic mild hyponatremia with levels in early 130s, Sodium on admission was 124, with the plasma osmolality of 303. She admits to drinking around 3 cans of beer daily, This rapidly corrected to 134 within 8 hours. was given desmopressin IV and T1y--qpyj stopped now Na now 127. Can be discharged. She desperately wants to go home anyway. will do serum Osm, BMP, urine osm tomorrow with her PCP appt. No meds needed. She actually had hyperosmolarity on Adx. Advised no alcohol ezequiel beer. Also limit fluid intake to 1800 ml per day. Plan discussed with Dr. De Los Santos and in agreement. (2) Anemia: She has chronic anemia and receives IV iron which as per hospitalist since due next week. She will get one today before discharge. S--Feels normal. NO new issues. na now 127 Physical Exam Physical Exam: General- Not in acute distress Neck- supple, no JVD. Lungs- clear to auscultation no wheezing or crackles. Heart- regular rhythm; no murmur, no gallop. Abdomen- normal bowel sounds, soft, nontender, no distension Extremities- no pretibial edema Neuro- alert, oriented, no facial palsy; no dysarthria; moves extremities Results & Data Vital Signs (Past 12 Hours) Vital Signs Temp Pulse Pulse Resp BP Pulse Ox O2 Del Method 04/13/24 08:20 36.8 C 96 H 18 125/93 100 Room Air 04/13/24 07:41 04/13/24 03:56 37.3 C 96 H 18 126/85 97 Room Air 04/13/24 00:14 100 H 04/12/24 23:31 37.0 C 98 H 20 117/81 98 Room Air O2 Del Method 04/13/24 08:20 04/13/24 07:41 Room Air 04/13/24 03:56 04/13/24 00:14 04/12/24 23:31
--- NOTE | 2024-04-13 09:29 | Discharge Summary ---
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 Patient states since last 2- 3 days she is having pain in the left left leg below knee region. Pain is 5/10 in severity while resting and more while ambulating. She was able to ambulate okay. States her legs are always weak from her MS.Denies any fevers. No back pain. Denies any headache. No blurred vision. No runny nose or sore throat. No cough. Appetite is okay. No chest pain or shortness of breath. No nausea. No abdominal pain. Normal bowel and bladder movements. Patient states she also drinks 3 beers every day. Currently resting comfortably and hemodynamic stable. Past medical history. As mentioned above Past surgical history. EGD. EGD with trans endoscopic dilatation. Gastric revision for obesity. Laparoscopic cholecystectomy. Maxillary sinus endoscopy. Nasal endoscopy. Tonsillectomy. Repair of nasal septum. Stereotactic cranial extradural navigation. Wedge biopsy of liver. Social history. No smoking. Drinks alcohol 3 beers daily. No drug use. Family history. Father had arthritis. Hypertension. Obesity. Mother has obesity. Arthritis. Migraines. Paternal grandfather had diabetes hypertension heart disorder. Paternal grandmother had diabetes. Admission Exam Per Admitting Provider General- Not in acute distress Head- atraumatic Eyes- PERRL. ENT- oropharynx clear Neck- supple, no JVD. Lungs- clear to auscultation no wheezing or crackles. Heart- regular rhythm; no murmur, no gallop. Abdomen- normal bowel sounds, soft, nontender, no distension Extremities- no pretibial edema, no erythema seen, left leg warm on palpation an sensations and power intact Neuro- alert, oriented PERRL, no facial palsy; no dysarthria; moves extremities Principal Diagnosis Hyponatremia Leg pain, hx of MS Anemia - iron-deficiency Discharge Exam General- obese young F in NAD Head- atraumatic Eyes- PERRL. Neck- supple, no JVD. Lungs- clear to auscultation no wheezing or crackles. Heart- regular rhythm; no murmur, no gallop. Abdomen- normal bowel sounds, soft, nontender, + obese Extremities- no pretibial edema, no erythema seen, pt moves extremities Neuro- alert, oriented PERRL, no facial palsy; no dysarthria; moves extremities Discharge Data Allergies Allergy/AdvReac Type Severity Reaction Status Date / Time cephalexin Allergy Intermediate HIVES A Verified 04/07/23 00:26 SMALL CHILD Cephalosporins Allergy Intermediate Hives Verified 04/07/23 00:26 clindamycin Allergy Intermediate HIVES/HEART Verified 04/07/23 00:26 BURN hydrocodone Allergy Intermediate Itching Verified 04/07/23 00:26 methocarbamol Allergy Intermediate ITCHY RASH Verified 04/07/23 00:26 Sulfa (Sulfonamide Allergy Intermediate Hives Verified 04/07/23 00:26 Antibiotics) Consultations 04/12/24 03:00 ED Decision to Admit Stat 04/12/24 08:22 Consult Nephrology Routine 04/12/24 08:46 Consult Neurology Routine Ordered Studies 04/12/24 00:22 CT angio head wo/w Stat IMPRESSION: 1. No evidence of stenosis or aneurysm. No evidence of dissection. CT angio neck with con Stat IMPRESSION: 1. No evidence of stenosis or aneurysm. No evidence of dissection. US venous doppler LE LT Stat IMPRESSION: 1. No sonographic evidence of acute DVT was detected at the time of examination. 2. No significant interval changes compared to prior study dated on 04/07/2023. 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 Patient states since last 2- 3 days she is having pain in the left left leg below knee region. Pain is 5/10 in severity while resting and more while ambulating. She was able to ambulate okay. States her legs are always weak from her MS.Denies any fevers. No back pain. Denies any headache. No blurred vision. No runny nose or sore throat. No cough. Appetite is okay. No chest pain or shortness of breath. No nausea. No abdominal pain. Normal bowel and bladder movements. Patient states she also drinks 3 beers every day. Currently resting comfortably and hemodynamic stable. Acute leg pain Left leg pain below knee Doppler is unremarkable - no DVT Legs are always weak from MS ER did a CTA of the head and neck which were unremarkable Pain control Because of MS neurology consulted and discussed with - recommend restarting flexeril, however pt has an appointment later today with her MS neurologist and strongly prefers to see them Hyponatremia Sodium of 124 Usually sodium 133 range Drinks 3 beers daily checked urine osmolality, serum osmolality and urine sodium levels BMP every 6 hours Fluid restriction initiated on admission and pt corrected to 134 Nephrology consulted for further recommendation - given desmopressin and D5W for sodium 134 Now Na 127 - discussed w/ nephrology again today will do serum Osm, BMP, urine osm tomorrow with her PCP appt. No meds needed. She actually had hyperosmolarity on Adx. Advised no alcohol ezequiel beer. Also limit fluid intake to 1800 ml per day. History of MS On ocrelizumab, follow up appointment w/ MS neurologist today at [facility] Asthma Continue home inhalers Depression on Zoloft Anemia Chronic Follows up w/ hematology Dr. Figueroa - she is supposed to get iron next week Will provide IV iron now and will have her follow up as outpt w/ her hematol ogist She is also supposed to get EGD done this week as she has hx of PUD Will monitor Total Time Total Time Spent Total Time Spent (In Minutes): 40 Discharge Plan Discharge Items Patient Disposition: Home - Self-Care Reason For Visit: HYPONATREMIA,LEFT LEG PAIN Discharge Diagnosis: Hyponatremia Leg pain, hx of MS Anemia - iron-deficiency Activity: Per Instructions section Non-emergency contact: Primary Care Provider, Specialist, Strip Cleaner and Neurologist Call non-emergency contact if: you have any medication questions and your symptoms worsen Follow-up/Referrals: Kimberly Figureoa MD [Primary Care Provider] - Diet: Heart Healthy Fluids: 1800ml (7 cups) Addtl Attending Provider Instructions: Follow up with your primary care doctor, neurologist, nursing administrator. Follow fluid restriction 1800 mL a day. Avoid drinking beer. You will need blood work done with your primary care doctor - serum Osm, BMP, urine osm tomorrow Pending Studies at Discharge: No Stand-Alone Forms: My [facility] [employer], Smoking Cessation Medications and DC Order Prescriptions: Continued sucralfate 100 mg/mL suspension 10 ml PO BID sertraline 100 mg tablet 100 mg PO DAILY folic acid 1 mg tablet 2 mg PO DAILY epinephrine 0.3 mg/0.3 mL auto-injector 0.3 mg IM UD PRN (Reason: severe allergic reaction) albuterol sulfate 90 mcg/actuation HFA aerosol inhaler 2 inh INHALATION Q4H PRN (Reason: sob) hydroxyzine pamoate 25 mg capsule 25 mg PO TID PRN (Reason: Anxiety) Dupixent Pen 300 mg/2 mL pen injector 300 mg SUBCUT UD Rx Instructions: q 2weeks ocrelizumab 30 mg/mL Solution 1 mg IV UD Rx Instructions: administer q 6 months Discharge Orders: Discharge Order (Routine); Ordered 04/13/24 Ordered By: Ozzie De Los Santos Admission Data Admit Date/Time: 04/12/24 06:13 Attending Provider: Ozzie De Los Santos Admit Provider: Edmund Matthews Primary Care Provider: Kimberly Figueroa Other Providers: Edmund Matthews; Ana Laura Hawthorne; Baron Kumar; Shayla Carter; Wade Watson; Danya Griggs; Jennifer Gan; Manolo Marc; Jennifer Chairez; Layo Lujan; Bart Schrader; Gordo Bear; Santos Smart; Junie Pardo; Shon Mcdaniel; Johann Patel; Georges Fermin; Clark Alarcon; Elvia Blackman; Medina Gonzalez; Santos Mcneil; Neha Roth
[2024-04-13 10:14] VITALS: PULSE 87
[2024-04-13] MEDS: HEPARIN 100 UNIT/ML 5ML FLUSH ONE (10:42)
[2024-04-14] MEDS ORDERED: GABAPENTIN 600 MG TAB PO SCH (10:00)
[2024-04-15] MEDS ORDERED: GABAPENTIN 600 MG TAB PO SCH (22:00)
== END 2024-04-13 11:20 | disposition home or self-care (01) | DRG 59 ==
LOC: ED 23:51 → EDINP 04-12 06:13 → 2E 04-12 14:09